=== PATIENT | female | born 1940 | race Caucasian/White ===

== ENCOUNTER 2016-06-22 10:10 | Day surgery (SDC) | payer MEDICARE ==
[2016-06-20 11:46] VITALS: BMI 17.6
[~2016-06-22 10:10] MED LIST: LACTATED RINGERS 1,000 ML IV SCH
[2016-06-22] MEDS ORDERED: LACTATED RINGERS 1,000 ML IV ONE (11:07)
[2016-06-22] MEDS ORDERED: LIDOCAINE 1% 20 ML VIAL (10MG/ML) FOR IV START INTRADERMA ONE (11:07)
[2016-06-22 11:12] VITALS: TEMP 98.3
[2016-06-22] MEDS ORDERED: LIDOCAINE 1% INJ 10MG/ML (20 ML MDV) ONE (11:30)
[2016-06-22] MEDS ORDERED: PROPOFOL 10 MG/ML 20 ML VIAL IV ONE (11:30)
--- NOTE | 2016-06-22 11:56 | P.PCN ---
Date of Procedure: 06/22/16 Procedure(s) Performed: BRIEF HISTORY: Patient is a 75-year-old pleasant white female, scheduled for an elective colonoscopy as a part of evaluation of left lower quadrant abdominal pain and diarrhea for the last few months duration. She has bowel movements anywhere from 5-6 a day which are loose to watery in consistency. She denies any blood or mucus in the stool. PROCEDURE PERFORMED: Colonoscopy With biopsy. PREOPERATIVE DIAGNOSIS: Left lower quadrant abdominal pain and diarrhea of 3 months duration IV sedation per Anesthesia. PROCEDURE: After informed consent was obtained, the patient, was brought into the endoscopy unit. IV conscious sedation was administered by Anesthesia under continuous monitoring. Initially the Olympus CF-160 flexible video . colonoscope was then inserted in the rectum, gradually advanced into the cecum with moderate to severe difficulty secondary to acute ventilation the sigmoid colon. Careful examination was performed as the scope was gradually being withdrawn. Ileocecal valve and the appendiceal orifice were visualized and appeared normal. Prep was excellent. Mucosa of the cecum, ascending colon, transverse colon, descending colon, sigmoid colon, and rectum appeared normal. Retroflexion was performed in the rectum and no lesions were seen. scattered diverticulosis seen. Random biopsies were done from the ascending and descending colon to rule out laparoscopic/collagenous colitis. The patient tolerated the procedure well. IMPRESSION: Normal-appearing colon from rectum to cecumwith no evidence of colitis or colorectal neoplasia . Scattered sigmoidal diverticulosis. RECOMMENDATIONS: Findings of this examination were discussed with the patient as well as a family. She was advised to follow with the biopsy results and she' ll be seen in the office in 2 to 3 weeks.
[2016-06-22 12:03] VITALS: RESP 16
[2016-06-22 12:27] VITALS: BP 135/78; PULSE 82
== END 2016-06-22 12:45 | disposition home or self-care (01) ==
LOC: ORWHC2ENDO 10:10
PROVIDERS: ATTEND Internal Medicine Gastroenterology
DX: K57.30 Diverticulosis of large intestine without perforation or abscess without bleeding (principal); I10 Essential (primary) hypertension; I25.10 Atherosclerotic heart disease of native coronary artery without angina pectoris; E78.5 Hyperlipidemia, unspecified; J45.909 Unspecified asthma, uncomplicated; J44.9 Chronic obstructive pulmonary disease, unspecified; K21.9 Gastro-esophageal reflux disease without esophagitis; Z88.5 Allergy status to narcotic agent; Z88.6 Allergy status to analgesic agent; Z91.041 Radiographic dye allergy status; Z79.1 Long term (current) use of non-steroidal anti-inflammatories (NSAID); Z79.51 Long term (current) use of inhaled steroids; Z79.899 Other long term (current) drug therapy; Z87.891 Personal history of nicotine dependence
CPT/HCPCS: 88305; 45380; J2001; J2704

== ENCOUNTER → 2016-06-29 | Outpatient (CLI) | payer MEDICARE ==
--- NOTE | 2016-07-02 10:38 | MM ---
Reason for exam: clinical finding. Last mammogram was performed 3 years and 2 months ago. History: Patient is postmenopausal. Family history of breast cancer in sister. Benign excisional biopsy of both breasts. Indicated problem(s): lump or thickening in the left breast. Physical Findings: Nurse Summary: 0.5cm nodule in the left breast at 1-2 o'clock (nurse mm). MG 3D Diag Mammo W/Cad MORAIMA Bilateral CC and MLO view(s) were taken. XCCL and LM view(s) were taken of the left breast. Prior study comparison: April 17, 2013, bilateral digital screening mammo w/CAD. The breast tissue is extremely dense which could obscure a lesion on mammography. No significant new findings when compared with previous films. These results were verbally communicated with the patient and result sheet given to the patient on 07/02/16. ASSESSMENT: Incomplete: need additional imaging evaluation, BI-RAD 0 RECOMMENDATION: Ultrasound of the left breast. (palpable)
--- NOTE | 2016-07-02 10:40 | USB ---
Reason for exam: additional evaluation requested from abnormal screening. History: Patient is postmenopausal. Family history of breast cancer in sister. Benign excisional biopsy of both breasts. US Breast Limited LT Left breast ultrasound demonstrates a 2 x 1 x 1mm lesion too small to characterize at 1 o'clock and a 6 x 4 x 8mm oval, solid, hypoechoic, vascular lesion at 2 o'clock, stalk suggesting lymph node. These results were verbally communicated with the patient and result sheet given to the patient on 06/29/16. ASSESSMENT: Suspicious, BI-RAD 4 RECOMMENDATION: Ultrasound core biopsy of the left breast. Called Dr. Alejandro with mammographic findings and has scheduled an appointment for the patient for 08/09/16 at 10:[address] Burgos. Biopsy scheduled for 07/06/16 at 9:00. PRELIMINARY REPORT CALLED AND FAXED TO DR. BURGOS ON 07/02/16 AT 300/TP.
== END | disposition home or self-care (01) ==
LOC: RADMAMWWP 10:05
PROVIDERS: ATTEND Family Medicine
DX: N63 Unspecified lump in breast (principal); N64.4 Mastodynia; R92.8 Other abnormal and inconclusive findings on diagnostic imaging of breast
CPT/HCPCS: 76642; G0204; G0279

== ENCOUNTER → 2016-07-06 | Day surgery (SDC) | payer MEDICARE ==
[~2016-07-06] MED LIST changes: +BACITRACIN OINT 1 EACH PACKET TOPICAL ONE; -LACTATED RINGERS 1,000 ML IV SCH; +LIDOCAINE 1% INJ 10MG/ML (20 ML MDV) ONE; +LIDOCAINE 1%-EPI 1:100,000 20 ML VIAL ONE; +SODIUM BICARB 4% 5 ML VIAL (0.48 MEQ/ML) ONE
--- NOTE | 2016-07-06 11:25 | USB ---
EXAMINATION TYPE: US biopsy breast VAD LT DATE OF EXAM: 07/06/2016 9:25 AM CLINICAL HISTORY: R92.8 ABN MAMMO. TECHNIQUE: Ultrasound guided core biopsy of left breast. COMPARISON: NONE FINDINGS: The procedure of ultrasound guided core biopsy was explained to the patient. Benefits, alternatives, and risks were discussed. An informed consent was then obtained. The patient was placed in supine positioning for imaging and for the procedure. The overlying skin was prepped and draped in usual sterile fashion. Lidocaine buffered with bicarbonate was used as anesthetic into the skin and subcutaneous tissue up to area of concern in the left breast. A jayden was made with surgical scalpel. Under ultrasound guidance, a 12-gauge vacuum assisted biopsy gun device was used to obtain 6 core samples. Following this, a biopsy clip was left in lesion. The patient tolerated the procedure well without any immediate complication. The patient was kept in the radiology department for short stay after the procedure and then discharged home in stable condition. IMPRESSION: SUCCESSFUL, UNCOMPLICATED ULTRASOUND GUIDED CORE BIOPSY OF AREA OF CONCERN IN THE LEFT BREAST, FULL PATHOLOGY RESULTS TO FOLLOW. Pathology Results: Malignant BREAST, LEFT, CORE BIOPSY: INVASIVE DUCTAL CARCINOMA. SEE SURGICAL PATHOLOGY CANCER CASE SUMMARY. Recommendation Surgical consul of the left breast. CHRISTIANO
== END ==
LOC: RADUSWWP 07:57
PROVIDERS: ATTEND Surgery
DX: C50.912 Malignant neoplasm of unspecified site of left female breast (principal); R92.8 Other abnormal and inconclusive findings on diagnostic imaging of breast; Z88.5 Allergy status to narcotic agent; Z88.8 Allergy status to other drugs, medicaments and biological substances; Z91.041 Radiographic dye allergy status
CPT/HCPCS: 88305; 88342; 88341; 19083; A4648; J2001

== ENCOUNTER 2016-08-08 06:48 | Day surgery (SDC) | payer MEDICARE ==
--- NOTE | 2016-07-14 08:43 | HP ---
DATE OF ADMISSION: 08/08/2016 CHIEF COMPLAINT: Left breast cancer. HISTORY OF PRESENT ILLNESS: Patient is a 75-year-old female who had a recent diagnosis of left breast cancer. This was identified first by self palpation. The patient felt a small pea-sized lump in the lateral aspect of the left breast. She had a mammogram performed which was nonspecific and an ultrasound showing an 8 x 6 mm solid lesion. Core biopsy showed invasive ductal cancer. Receptors are still pending at this time. The patient had already decided prior to the visit that she was not interested in breast conservation. She has a history of breast cancer in one and possibly 2 sisters. She has had several previous biopsies bilaterally. All of which have been benign previously. PAST MEDICAL HISTORY: Asthma, COPD, osteoarthritis, GERD, anxiety, IBS. PAST SURGICAL HISTORY: Cholecystectomy, breast biopsies. MEDICATIONS: See list. ALLERGIES: CODEINE and ASPIRIN. PHYSICAL EXAM: HEENT is normocephalic. Sclerae anicteric. Right breast without mass or adenopathy. Left breast with induration/mass present at 3 o'clock approximately 1 cm with some ecchymosis noted. No adenopathy appreciated. ABDOMEN: Soft, nontender, nondistended. NEURO: AAO x3. EXTREMITIES: Without edema. IMPRESSION: A 75-year-old female with newly diagnosed left breast cancer. PLAN: Will proceed with left simple mastectomy with sentinel lymph node biopsy on 08/08. The alternate options were discussed in detail with the patient. These included preoperative MRI, preoperative genetic testing, breast conservation surgery. We also offered preoperative evaluation by oncology and radiation oncology. Patient was not interested in any of those options at this time and would like to proceed with mastectomy. Appointments will be made for the patient to see Dr. Douglas postoperatively as the patient knows Dr. Douglas from her 's prior illness. The risks of bleeding, infection, flap ischemia, wound formation, seroma formation, nerve injury, lymphedema, potential need for additional surgery were discussed. The patient understands and wishes to proceed.
[2016-08-06 10:14] VITALS: BMI 18.3
[~2016-08-08 06:48] MED LIST changes: -BACITRACIN OINT 1 EACH PACKET TOPICAL ONE; +DEXAMETHASONE SOD PHOSPHATE 10 MG/ML 1 ML VIAL IV ONE; +HEPARIN SODIUM,PORCINE 5,000 UNIT/ML 1 ML VIAL SQ ONE; +HYDROmorphone 1 MG/ML 1 ML SYRINGE IVP PRN; +LACTATED RINGERS 1,000 ML IV SCH; -LIDOCAINE 1% INJ 10MG/ML (20 ML MDV) ONE; -LIDOCAINE 1%-EPI 1:100,000 20 ML VIAL ONE; +MIDAZOLAM 2 MG/2 ML VIAL IV PRN; +ONDANSETRON 4 MG/2 ML VIAL IVP ONE; +Pre Op ABX Message 1 EACH MISC MISCELLANE ONE; -SODIUM BICARB 4% 5 ML VIAL (0.48 MEQ/ML) ONE
[2016-08-08] MEDS ORDERED: METHYLENE BLUE 50 MG/10 ML AMPUL ONE (07:05)
[2016-08-08] MEDS ORDERED: LIDOCAINE 1% 20 ML VIAL (10MG/ML) FOR IV START INTRADERMA ONE (07:42)
[2016-08-08] MEDS ORDERED: ALPRAZolam 0.25 MG TAB PO ONE (07:45)
[2016-08-08] MEDS ORDERED: MIDAZOLAM 2 MG/2 ML VIAL ONE (09:41)
[2016-08-08] MEDS ORDERED: SUCCINYLCHOLINE CHLORIDE 100 MG/5 ML SYR IV ONE (09:41)
[2016-08-08] MEDS ORDERED: LIDOCAINE 1% INJ 10MG/ML (20 ML MDV) ONE (09:41)
[2016-08-08] MEDS ORDERED: PROPOFOL 10 MG/ML 20 ML VIAL IV ONE (09:41)
[2016-08-08] MEDS ORDERED: fentaNYL (PF) 50 MCG/ML 2 ML AMP ONE (09:41)
[2016-08-08] MEDS ORDERED: METHYLENE BLUE 10 MG/ML 1 ML VIAL INJ ONE (09:54)
[2016-08-08] MEDS ORDERED: SODIUM CHLORIDE 0.9% 100 ML with ceFAZolin 1,000 MG IV ONE ×2 (10:13)
--- NOTE | 2016-08-08 10:13 | NM ---
EXAMINATION TYPE: NM sentinel node injection DATE OF EXAM: 08/08/2016 8:40 AM COMPARISON: NONE HISTORY: Left BREAST CANCER TECHNIQUE AND FINDINGS: The procedure of sentinel lymph node injection was explained to the patient. The benefits, alternatives, and risks were discussed. An informed consent was then obtained. Overlying skin is cleaned with sterile alcohol. Lidocaine buffered with bicarbonate was used as anes thetic into the skin and subcutaneous tissue surrounding the nipple. Following this, 540 uCi Tc 99m Filtered Sulfur Colloid was injected into 4 equivalent doses at 12, 3, 6, and 9:00 position surroundi ng the left nipple intradermally. The injection sites were massaged by nuclear power plant engineer for 10 minutes after injection. T he patient tolerated the procedure well without any immediate complication. The patient was kept in the radiology department for short stay after the procedure and then taken to surgery for surgical pr ocedure what is presumed intraoperative gamma probe will be used for sentinel lymph node detection. IMPRESSION: Left breast radiotracer injection for sentinel node localization as above.
[2016-08-08] MEDS ORDERED: HYDROcodone/APAP 5-325MG 1 EACH TAB PO PRN (11:34)
[2016-08-08] MEDS ORDERED: ONDANSETRON 4 MG/2 ML VIAL IVP PRN (11:34)
[2016-08-08] MEDS ORDERED: NALOXONE 0.4 MG/ML 1 ML VIAL IV PRN (11:34)
--- NOTE | 2016-08-08 11:43 | P.OP ---
Date of Procedure: 08/08/16 Procedure(s) Performed: PREOPERATIVE DIAGNOSIS: Left breast cancer POSTOPERATIVE DIAGNOSIS: Same PROCEDURE: Left breast mastectomy with sentinel lymph node biopsy SURGEON: Aubrey EBL: Minimal ANESTHESIA: General COMPLICATIONS: None OPERATIVE PROCEDURE: Patient was placed on the operating room table in the supine position. 2 mL of methylene blue was injected into the subareolar space. The breast was then massaged for 5 minutes. Using the skin marker the proposed incision sites were drawn out on the chest wall. The superior incision was first created. The incision was elliptical in nature encompassing the nipple areolar complex. Flaps were raised superiorly until the chest wall was reached. The axilla was then addressed. Blunt dissection surprisingly did reveal immediately 2 hot and blue lymph nodes along with the feeding blue colored lymphatic vessel. Both of these lymph nodes were removed and sent to pathology for close examination labeled sentinel lymph nodes 1 and 2. A single additional non-blue but yet radioactive lymph node was identified labeled sentinel lymph node #3 and sent to pathology. All 3 lymph nodes thankfully were negative for metastatic disease by frozen section. The mastectomy incision was then created inferiorly and flaps were again raised until the chest wall was reached. The breast was removed from the chest wall using electrocautery. Multiple vessels were divided using either electrocautery or the clip general dentist. The area was irrigated. No bleeding was seen. A drain was placed beneath the flaps of the mastectomy incision. The subcutaneous tissues were then closed using 3-0 Vicryl sutures and the skin was closed using a running 4-0 Monocryl stitch. Prineo dressing was used along the entire length of the incision with Dermabond. The drain was sutured in place using a 3-0 silk stitch. DISPOSITION: Stable to recovery room
[2016-08-08] MEDS ORDERED: KETOROLAC 30 MG/ML 1 ML VIAL IVP ONE (11:51)
[2016-08-08] MEDS ORDERED: ACETAMINOPHEN IV (For NPO) 1,000 MG/100 ML VIAL IVPB ONE (12:10)
[2016-08-08] MEDS: LABETALOL 5 MG/ML VIAL MDV IVP ONE ×2 (12:39→12:49)
[2016-08-08] MEDS: D5-0.45% NACL WITH KCL 20MEQ/L 1,000 ML IV SCH ×2 (13:35→23:29)
[2016-08-08] MEDS ORDERED: PROCHLORPERAZINE 10 MG TAB PO PRN (14:52)
[2016-08-08] MEDS ORDERED: ALPRAZolam 0.5 MG TAB PO PRN (14:52)
[2016-08-08] MEDS ORDERED: DIPHENOX-ATROP 2.5-0.025 MG 1 EACH TAB PO PRN (14:52)
--- NOTE | 2016-08-08 14:52 | P.CONS ---
History of Present Illness - Reason for Consult Consult date: 08/08/16 medical Management Requesting physician: Angel Burgos - Chief Complaint Left breast mastectomy with santinel lymph nodes biopsy. - History of Present Illness This is a 75-year-old female one of Dr. Alejandro with a previous medical history significant for coronary artery disease status post left heart catheterization with the left heart catheterization that was done in September 2014 that showed ostial lesion of the diagonal branch and mild disease of the RCA, normal ejection fraction, hypertension and hypertensive cardiovascular disease with left ventricular hypertrophy, chronic tobacco use and dependence with chronic obstructive pulmonary disease, GERD, patient underwent left mastectomy with sentinel lymph node biopsy that was done by Dr. guillen and I was asked to see the patient for medical management. Patient stated that she developed to have a lump in the left breast about 2 month ago and she waited about a month until she saw Dr. Alejandro where he sent her to a mammogram that was nonspecific, this was followed by ultrasound that showed 86 monitor solid nodule on the lateral aspect of the left breast core biopsy confirmed invasive ductal carcinoma, subsequently patient was scheduled to go for left mastectomy since the patient is not interested in breast conservation surgery. Review of Systems Constitutional: Reports weakness, Denies anorexia, Denies chronic headaches, Denies chronic pain, Denies lethargy, Denies night sweats Eyes: denies blurred vision, denies bulging eye, denies decreased vision Ears: deny: decreased hearing Ears, nose, mouth and throat: Denies dysphagia, Denies neck lump, Denies sore throat Breasts: left: change in shape (Post left mastectomy.) Cardiovascular: Reports high blood pressure, Denies chest pain, Denies decreased exercise tolerance, Denies dyspnea on exertion, Denies palpitations, Denies phlebitis, Denies rapid heart beat, Denies shortness of breath, Denies syncope Respiratory: Reports cough, Reports dyspnea, Denies congestion, Denies home oxygen, Denies sleep apnea, Denies snoring, Denies wheezing Gastrointestinal: Reports change in bowel habits, Reports diarrhea, Reports nausea, Denies abdominal pain, Denies bloating, Denies BRBPR, Denies heartburn, Denies melena, Denies vomiting Genitourinary: Denies dysuria, Denies urgency Menstruation: Reports post hysterectomy, Reports postmenopausal Musculoskeletal: Denies myalgias Musculoskeletal: absent: ankle pain, ankle stiffness, ankle swelling, elbow pain , elbow stiffness, elbow swelling, foot pain, foot stiffness, foot swelling, hand pain, hand stiffness, hand swelling, hip pain, hip stiffness, hip swelling , knee pain, knee stiffness, knee swelling, shoulder pain, shoulder stiffness, shoulder swelling, wrist pain, wrist stiffness, wrist swelling Integumentary: Denies pruritus, Denies rash Psychiatric: Reports anxiety, Denies depression Endocrine: Denies fatigue, Denies weight change Past Medical History Past Medical History: Asthma, Coronary Artery Disease (CAD), Chest Pain / Angina , COPD, GERD/Reflux, Hyperlipidemia, Hypertension, Osteoarthritis (OA) Additional Past Medical History / Comment(s): pancreatitis, HTN, heart murmur since 1970s, bronchitis, IBS with diarrhea, osteoarthritis, peptic ulcer, sinusitis, UTI's, migraines, dizziness at times. History of Any Multi-Drug Resistant Organisms: None Reported Past Surgical History: Bladder Surgery, Cholecystectomy, Heart Catheterization, Hysterectomy, Orthopedic Surgery Additional Past Surgical History / Comment(s): 09/21/14 cardiac cath with disease -treated medically, cataracts bilaterally, rt rotator cuff, juan m carpal tunnel, bladder suspension, rectocele repair, hemorrhoidectomy, colonoscopies, camera endoscopy, EGD Past Anesthesia/Blood Transfusion Reactions: No Reported Reaction Additional Past Anesthesia/Blood Transfusion Reaction / Comm: Pt is claustrophobic. Past Psychological History: Anxiety Additional Psychological History / Comment(s): Pt resides at [facility]. She is independent. She uses no assistive device. She drives. She has a nebulizer. She has a little anxiety which she occasionally uses xanax with good results. She is claustrophobic. Smoking Status: Former smoker Past Alcohol Use History: None Reported Additional Past Alcohol Use History / Comment(s): Pt started smoking in 1 and is 1 ppd smoker. quit 2016 Past Drug Use History: None Reported - Past Family History Father Family Medical History: COPD (Her father from COPD.) Additional Family Medical History / Comment(s): Father is . Mother Family Medical History: CVA/TIA (Mother at age of 82 from CVA she also has history of hypertension.), Hypertension Additional Family Medical History / Comment(s): at age 91 Sister(s) Family Medical History: Cancer (Patient had 6 sisters one of her sisters is a survivor of breast cancer the other one from a massive heart attack the third one from COPD and she still have 2 other living sisters one with dementia the other one with Alzheimer dementia.) Brother(s) Family Medical History: Cancer, Myocardial Infarction ([place]) (Patient had 5 brothers one of them from cancer and motor vehicle accident and the other one from a massive [place] patient still have 3 living brothers.) Daughter(s) Family Medical History: No Reported History (Patient has 2 daughters no major medical problems) Son(s) Family Medical History: No Reported History (Patient has one son no major medical problems) Medications and Allergies Home Medications Medication Instructions Recorded Confirmed Type Diphenox-Atrop 2.5-0.025 mg 1 tab PO BID PRN 09/17/14 08/08/16 History [Lomotil] Gabapentin [Neurontin] 100 mg PO TID 09/17/14 08/08/16 History ALPRAZolam [Xanax] 0.5 mg PO TID PRN 06/16/15 08/08/16 History Albuterol Nebulized [Ventolin 2.5 mg INHALATION RT-TID 06/16/15 08/08/16 History Nebulized] Albuterol Sulfate [Proair Hfa] 1 - 2 puff INHALATION RT-Q6H PRN 06/16/15 History Losartan Potassium [Cozaar] 50 mg PO HS 03/06/16 08/08/16 History Losartan Potassium [Cozaar] 100 mg PO QAM 03/06/16 08/08/16 History Omeprazole [PriLOSEC] 20 mg PO AC-BRKFST 03/06/16 08/08/16 History Fluticasone/Vilanterol [Breo 1 puff INHALATION RT-BID 03/24/16 08/08/16 History Ellipta 100-25 Mcg Inhaler] Umeclidinium [place] [Incruse 62.5 mcg INHALATION 1200 03/24/16 08/08/16 History Ellipta] Celecoxib [CeleBREX] 200 mg PO DAILY 06/20/16 08/08/16 History Allergies Allergy/AdvReac Type Severity Reaction Status Date / Time aspirin AdvReac Nausea Verified 08/06/16 10:04 codeine AdvReac Nausea Verified 08/06/16 10:04 Iodinated Contrast Media - AdvReac Vomiting Verified 08/06/16 10:04 Oral and [Iodinated Contrast Media - IV Dye] Physical Exam Vitals: Vital Signs Temp Pulse Pulse Resp BP BP Pulse Ox 08/08/16 12:15 70 18 201/94 100 08/08/16 11:58 70 18 203/95 100 08/08/16 11:43 68 18 212/95 99 08/08/16 11:28 97.8 F 69 16 145/99 99 08/08/16 07:27 97.5 F L 71 16 172/73 97 Intake and Output 08/07/16 08/08/16 08/08/16 22:59 06:59 14:59 Intake Total 850 Output Total 50 Balance 800 Intake: IV 850 Output: Estimated Blood Loss 50 - Constitutional General appearance: average body habitus, mild distress - EENT Eyes: anicteric sclerae, EOMI, no PERRLA, no ptosis, no scleral icterus, normal appearance ENT: NA/AT, normal oropharynx, no thrush Ears: bilateral: normal - Neck Neck: no lymphadenopathy, normal ROM, no rigidity, no stridor, no thyromegaly Carotids: bilateral: upstroke delayed Thyroid: bilateral: normal size - Respiratory Respiratory: bilateral: diminished, prolonged expiration, negative: dullness, rales, rhonchi, wheezing - Cardiovascular Rhythm: regular Heart sounds: normal: S1, S2 Abnormal Heart Sounds: systolic murmur, no rub, no S3 Gallop, no S4 Gallop, no click - Gastrointestinal General gastrointestinal: normal bowel sounds, soft, no splenomegaly, no tenderness, no umbilical hernia, no ventral hernia - Integumentary Integumentary: normal, normal turgor - Neurologic Neurologic: CNII-XII intact - Musculoskeletal Musculoskeletal: generalized weakness - Psychiatric Psychiatric: A&O x's 3, appropriate affect, intact judgment & insight Results CBC & Chem 7: 08/08/16 07:55 Assessment and Plan Plan: Assessment and plan: 1. Invasive ductal carcinoma of the left breast status post left mastectomy with sentinel lymph node biopsy. Continue the use of incentive spirometer to reduce the incidence of atelectasis and hospital-acquired pneumonia, continue current pain management as outlined by general surgery, continue deep venous thrombosis prophylaxis, continue IV fluid resuscitation and anti-emetics, we will continue with current pain management. 2. History of coronary artery disease. Stable. 3. Hypertension and hypertensive cardiovascular disease. Continue losartan 100 mg the morning and 50 mg at bedtime. 4. Hyperlipidemia. Continue Lipitor 10 mg orally once every day. 5. GERD. Continue omeprazole 20 mg orally once every day. 6. Osteoarthritis. Continue current pain management. 7. COPD. continue albuterol,Breo Ellipta and Incruse. 8. Osteoporosis. Stable. 9. IBS with diarrhea. Continue current management with Lomotil and the Bentyl as needed. 10. GI prophylaxis. On Prilosec 20 mg orally once every day. 11. DVT prophylaxis. Continue heparin 5000 units subcutaneously every 8 hours. 12. Thanks for the consult we will follow the patient along with you.
[2016-08-08] MEDS: HEPARIN SODIUM,PORCINE 5,000 UNIT/ML 1 ML VIAL SQ SCH ×2 (18:08→23:29)
[2016-08-08] MEDS: GABAPENTIN 100 MG CAP PO SCH ×2 (18:08→21:24)
[2016-08-08] MEDS: traMADol 50 MG TAB PO PRN (19:11)
[2016-08-08] MEDS ORDERED: LOSARTAN 50 MG TAB PO SCH (21:00)
[2016-08-08] MEDS: ALBUTEROL NEBULIZED 2.5 MG/3 ML INHALATION SCH (21:52)
[2016-08-08] MEDS: SYMBICORT 80-4.5 MCG INHALER INHALATION SCH (21:53)
[2016-08-09] MEDS ORDERED: NON-FORMULARY DRUG (Omeprazole [Prilosec] 20 MG) PO SCH (07:30)
[2016-08-09 08:12] VITALS: TEMP 98.2
[2016-08-09] MEDS: GABAPENTIN 100 MG CAP PO SCH (08:15)
[2016-08-09] MEDS: HEPARIN SODIUM,PORCINE 5,000 UNIT/ML 1 ML VIAL SQ SCH (08:15)
[2016-08-09] MEDS: ALBUTEROL NEBULIZED 2.5 MG/3 ML INHALATION SCH ×2 (08:58→13:27)
[2016-08-09] MEDS ORDERED: PANTOPRAZOLE 40 MG/10 ML VIAL IV SCH (09:00)
[2016-08-09] MEDS ORDERED: LOSARTAN 50 MG TAB PO SCH (09:00)
[2016-08-09] MEDS: SYMBICORT 80-4.5 MCG INHALER INHALATION SCH (09:05)
[2016-08-09] MEDS: traMADol 50 MG TAB PO PRN (10:13)
[2016-08-09] MEDS ORDERED: TIOTROPIUM 18 MCG/PUFF INHALER INHALATION SCH (12:00)
[2016-08-09 12:26] VITALS: BP 143/67; RESP 16
[2016-08-09 13:30] VITALS: PULSE 76
--- NOTE | 2016-08-09 14:00 | P.DS ---
Providers Expected date of discharge: 08/09/16 Attending physician: Angel Burgos Consults: 08/08/16 11:34 Consult Physician Routine Consulting Provider: Daren España Consult Reason/Comments: Medical management Do you want consulting provider notified?: Yes Primary care physician: Alvin Shaw Hospital Course: Patient was admitted yesterday after an elective left simple mastectomy. She has done well postoperatively. Denies increased in pain. Drain output is appropriate. She is hoping to go home today. Her incision is clean and dry. She's been cleared by medicine for discharge. Plan outpatient follow-up in 1 week. Plan - Discharge Summary New Discharge Prescriptions: Hydrocodone/Acetaminophen [[place] 5-325] 1 - 2 each PO Q4HR PRN #30 tab PRN Reason: pain Discharge Medication List Diphenox-Atrop 2.5-0.025 mg [Lomotil] 1 tab PO BID PRN 09/17/14 [History] Gabapentin [Neurontin] 100 mg PO TID 09/17/14 [History] ALPRAZolam [Xanax] 0.5 mg PO TID PRN 06/16/15 [History] Albuterol Nebulized [Ventolin Nebulized] 2.5 mg INHALATION RT-TID 06/16/15 [ History] Albuterol Sulfate [Proair Hfa] 1 - 2 puff INHALATION RT-Q6H PRN 06/16/15 [ History] Prochlorperazine [Compazine] 10 mg PO TID PRN #30 tab 06/18/15 [Rx] Losartan Potassium [Cozaar] 50 mg PO HS 03/06/16 [History] Losartan Potassium [Cozaar] 100 mg PO QAM 03/06/16 [History] Omeprazole [PriLOSEC] 20 mg PO AC-BRKFST 03/06/16 [History] Fluticasone/Vilanterol [Breo Ellipta 100-25 Mcg Inhaler] 1 puff INHALATION RT- BID 03/24/16 [History] Umeclidinium [place] [Incruse Ellipta] 62.5 mcg INHALATION 1200 03/24/16 [ History] Celecoxib [CeleBREX] 200 mg PO DAILY 06/20/16 [History] Hydrocodone/Acetaminophen [[place] 5-325] 1 - 2 each PO Q4HR PRN #30 tab 08/08/16 [Rx] Follow up Appointment(s)/Referral(s): Angel Burgos MD [Medical Doctor] - 1 Week (august 16 at 9am) [facility], [NON-STAFF] - 1 Week Activity/Diet/Wound Care/Special Instructions: Regular diet. Eat lots of protein for good healing. Drink 8 8 oz of water a day. Activity as tolerated. No heavy lifting or pulling. Call Dr Burgos with fever over 101, increase pain, redness, swelling or drainage from incision. Increase amt of bright red drainage in AURELIA drains. May shower. [facility] [phone] Next dose of ultram can be taken at 4:30. [place] pain medication can be taken at anytime.
--- NOTE | 2016-08-09 14:02 | P.PN ---
Subjective This is a 75-year-old female one of Dr. Alejandro with a previous medical history significant for coronary artery disease status post left heart catheterization with the left heart catheterization that was done in September 2014 that showed ostial lesion of the diagonal branch and mild disease of the RCA, normal ejection fraction, hypertension and hypertensive cardiovascular disease with left ventricular hypertrophy, chronic tobacco use and dependence with chronic obstructive pulmonary disease, GERD, patient underwent left mastectomy with sentinel lymph node biopsy that was done by Dr. guillen and I was asked to see the patient for medical management. Patient stated that she developed to have a lump in the left breast about 2 month ago and she waited about a month until she saw Dr. Alejandro where he sent her to a mammogram that was nonspecific, this was followed by ultrasound that showed 86 monitor solid nodule on the lateral aspect of the left breast core biopsy confirmed invasive ductal carcinoma, subsequently patient was scheduled to go for left mastectomy since the patient is not interested in breast conservation surgery. 08/09: Patient's vital signs are stable. She is tolerating a regular diet with no nausea or vomiting. Pain is controlled. Patient is anticipating discharge home later today. Objective - Vital Signs Vital signs: Vital Signs Temp 98.2 F 08/09/16 08:00 Pulse 70 08/09/16 09:08 Resp 20 08/09/16 08:00 BP 135/74 08/09/16 08:00 Pulse Ox 96 08/09/16 08:00 Intake & Output 08/08/16 08/09/16 08/09/16 18:59 06:59 18:59 Intake Total 975 1040 Output Total 85 25 15 Balance 890 -25 1025 Weight 42.638 kg Intake: IV 975 Oral 1040 Output: Drainage 35 25 15 Breast 35 25 15 Estimated Blood Loss 50 Other: # Voids 1 1 - Exam General appearance: average body habitus, mild distress - EENT Eyes: anicteric sclerae, EOMI, no PERRLA, no ptosis, no scleral icterus, normal appearance ENT: NA/AT, normal oropharynx, no thrush Ears: bilateral: normal - Neck Neck: no lymphadenopathy, normal ROM, no rigidity, no stridor, no thyromegaly Carotids: bilateral: upstroke delayed Thyroid: bilateral: normal size - Respiratory Respiratory: bilateral: diminished, prolonged expiration, negative: dullness, rales, rhonchi, wheezing - Cardiovascular Rhythm: regular Heart sounds: normal: S1, S2 Abnormal Heart Sounds: systolic murmur, no rub, no S3 Gallop, no S4 Gallop, no click - Gastrointestinal General gastrointestinal: normal bowel sounds, soft, no splenomegaly, no tenderness, no umbilical hernia, no ventral hernia - Integumentary Integumentary: normal, normal turgor - Neurologic Neurologic: CNII-XII intact - Musculoskeletal Musculoskeletal: generalized weakness - Psychiatric Psychiatric: A&O x's 3, appropriate affect, intact judgment & insight - Labs CBC & Chem 7: 08/08/16 07:55 Assessment and Plan Plan: 1. Invasive ductal carcinoma of the left breast status post left mastectomy with sentinel lymph node biopsy. Continue the use of incentive spirometer to reduce the incidence of atelectasis and hospital-acquired pneumonia, continue current pain management as outlined by general surgery, continue deep venous thrombosis prophylaxis, continue IV fluid resuscitation and anti-emetics, we will continue with current pain management. 2. History of coronary artery disease. Stable. 3. Hypertension and hypertensive cardiovascular disease. Continue losartan 100 mg the morning and 50 mg at bedtime. 4. Hyperlipidemia. Continue Lipitor 10 mg orally once every day. 5. GERD. Continue omeprazole 20 mg orally once every day. 6. Osteoarthritis. Continue current pain management. 7. COPD. continue albuterol,Breo Ellipta and Incruse. 8. Osteoporosis. Stable. 9. IBS with diarrhea. Continue current management with Lomotil and the Bentyl as needed. 10. GI prophylaxis. On Prilosec 20 mg orally once every day. 11. DVT prophylaxis. Continue heparin 5000 units subcutaneously every 8 hours. Discharge plan: Home Impression and plan of care have been directed as dictated by the signing physician. Keren Daniels nurse practitioner acting as scribe for signing physician. Time with Patient: Greater than 30
== END 2016-08-09 14:24 | disposition home or self-care (01) ==
LOC: OR 06:48 → 6PED 11:19 → OR 08-09 14:24
PROVIDERS: ATTEND Surgery
DX: C50.912 Malignant neoplasm of unspecified site of left female breast (principal); Z87.891 Personal history of nicotine dependence; E78.5 Hyperlipidemia, unspecified; J44.9 Chronic obstructive pulmonary disease, unspecified; I11.9 Hypertensive heart disease without heart failure; M19.90 Unspecified osteoarthritis, unspecified site; K21.9 Gastro-esophageal reflux disease without esophagitis; F41.9 Anxiety disorder, unspecified; Z79.51 Long term (current) use of inhaled steroids; Z79.899 Other long term (current) drug therapy; K58.9 Irritable bowel syndrome, unspecified; Z88.6 Allergy status to analgesic agent; Z88.5 Allergy status to narcotic agent; Z91.041 Radiographic dye allergy status
CPT/HCPCS: 94640 ×4; 84132; 88342; 88331; 88307; 88341; 38792; 19303; 38500; A9541; J2250; J1644 ×2; J1100; J2405; J0690; J2001; Q9968; J3010; J1885; J0131; J0330; J2704; C9113

== ENCOUNTER → 2016-09-24 | Outpatient (CLI) | payer MEDICARE ==
--- NOTE | 2016-09-24 09:43 | BD ---
EXAMINATION TYPE: MG DEXA axial skeleton. DATE OF EXAM: 09/24/2016 COMPARISON: NONE CLINICAL HISTORY: Height: 60 IN Weight: 94 LBS FRAX RISK QUESTIONS: Alcohol (3 or more units per day): NO Family History (Parent hip fracture): NO Glucocorticoids (More than 3mos): NO (Ex: prednisone, prednisolone, methylprednisolone, dexamethasone, and hydrocortisone). History of Fracture in Adulthood: NO Secondary Osteoporosis: 1. Type 1 Diabetes: NO 2. Hyperthyroidism: NO 3. Menopause before 45: YES PARTIAL HYST AGE 30 4. Malnutrition: NO 5. Chronic liver disease: NO Rheumatoid Arthritis: YES Current Tobacco Use: NO RISK FACTORS HISTORY OF: Active: YES Postmenopausal woman: PARTIAL HYST AGE 30 MEDICATIONS: Additional Medications: CELEBREX, GABAPENTIN, FEMARA Additional History: BREAST CANCER EXAM MEASUREMENTS: Bone mineral densitometry was performed using the [employer]. Bone mineral density as measured about the Lumbar spine is: ----- L1-L4(G/cm2): 1.061 T Score Values are as follows: ----- L2: -0.9 ----- L3: -0.7 ----- L4: -1.1 ----- L1-L4: -1.0 Bone mineral density has: Decreased -0.2% since study of: 01/13/2013 Bone mineral density about the R hip (g/cm2): 0.971 Bone mineral density about the L hip (g/cm2): 1.014 T Score values are as follows: -----R Neck: -0.5 -----L Neck: -0.2 -----R Total: -0.7 -----L Total: -0.2 Bone mineral density has: Decreased -5.1% since study of: 01/13/2013 IMPRESSION: 1. No evidence of osteopenia or osteoporosis. NOTE: T-SCORE=SD OF THE YOUNG ADULT MEAN.
== END | disposition home or self-care (01) ==
LOC: RADBDWWP 08:46
PROVIDERS: ATTEND Internal Medicine Hematology & Oncology
DX: C50.412 Malignant neoplasm of upper-outer quadrant of left female breast (principal); N95.1 Menopausal and female climacteric states; Z79.890 Hormone replacement therapy
CPT/HCPCS: 77080

== ENCOUNTER 2016-11-12 18:33 | Inpatient (IN) | payer MEDICARE ==
[2016-11-12] MEDS ORDERED: MORPHINE SULFATE 4 MG/ML SYRINGE IVP STA ×2 (19:37→21:02)
[2016-11-12] MEDS ORDERED: KETOROLAC 30 MG/ML 1 ML VIAL IVP STA (19:37)
[2016-11-12] MEDS ORDERED: SODIUM CHLORIDE 0.9% 500 ML IV STA (19:37)
[2016-11-12 19:46] LABS: Basophils # (A) 0.1 k/uL (0-0.2); Basophils % (A) 1 %; CH 29.5; CHCM 34.6; Eosinophils # (A) 0.1 k/uL (0-0.7); Eosinophils % (A) 1 %; HCT 43.4 % (34.0-46.0); HGB 14.9 gm/dL (11.4-16.0); Luc # (Auto) 0.25; Luc % (Auto) 2; Lymphocytes # (A) 1.2 k/uL (1.0-4.8); Lymphocytes % (A) 8 %; MCH 29.5 pg (25.0-35.0); MCHC 34.4 g/dL (31.0-37.0); MCV 85.9 fL (80.0-100.0); Mean Platelet Volume 7.1; Monocytes # (A) 0.8 k/uL (0-1.0); Monocytes % (A) 6 %; Neutrophils # (A) 12.5 k/uL (1.3-7.7); Neutrophils % (A) 83 %; RBC 5.05 m/uL (3.80-5.40); RDW 14.2 % (11.5-15.5); WBC (Perox) 15.18
[2016-11-12 19:54] LABS: Anion Gap 13 mmol/L; Blood Urea Nitrogen 17 mg/dL (7-17); Calcium 9.5 mg/dL (8.4-10.2); Carbon Dioxide 21 mmol/L (22-30); Chloride 105 mmol/L (98-107); Glucose 214 mg/dL (74-99); Non-African American GFR(MDRD) >60 (>60 ml/min/1.73 sqM); Potassium 3.6 mmol/L (3.5-5.1); Sodium 139 mmol/L (137-145)
[2016-11-12] MEDS ORDERED: IPRATROPIUM-ALBUTEROL 3 ML NEB INHALATION STA (20:00)
--- NOTE | 2016-11-12 20:38 | ED ---
Abdominal Pain HPI - General Chief Complaint: Abdominal Pain Stated Complaint: Adb pain Hx Diverticulitis Source: patient Mode of arrival: ambulatory Limitations: no limitations - History of Present Illness Initial Comments: 76-year-old female with a past medical history of diverticulitis, asthma, CAD, COPD, GERD, hypertension, OA, angina, pink otitis, hypertension, and peptic ulcer disease presented for evaluation of lower quadrant abdominal pain that is consistent with her previous episodes of diverticulitis. She states she was diagnosed in February or March 2016 and since then has had some minor flareups although no further admissions. She states her current symptoms started 2 weeks ago and has intermittently been worsening. She describes her pain as a sharpness with associated fevers and chills and without nausea or vomiting. Pain is an 8 out of 10 currently but has been up as high as 10 out of 10. - Related Data Home Medications Medication Instructions Recorded Confirmed Diphenox-Atrop 2.5-0.025 mg 1 tab PO BID PRN 09/17/14 11/12/16 [Lomotil] Gabapentin [Neurontin] 100 mg PO BID 09/17/14 11/12/16 ALPRAZolam [Xanax] 1 mg PO TID PRN 06/16/15 11/12/16 Albuterol Nebulized [Ventolin 2.5 mg INHALATION RT-TID@08,141930 06/16/1511/12 Nebulized] Albuterol Sulfate [Proair Hfa] 1 - 2 puff INHALATION RT-Q6H PRN 06/16/15 Losartan Potassium [Cozaar] 50 mg PO HS 03/06/16 11/12/16 Losartan Potassium [Cozaar] 100 mg PO QAM 03/06/16 11/12/16 Omeprazole [PriLOSEC] 20 mg PO AC-BRKFST 03/06/16 11/12/16 Celecoxib [CeleBREX] 200 mg PO DAILY 06/20/16 11/12/16 Budesonide/Formoterol Fumarate 2 puff INHALATION RT-BID 11/12/16 11/12/16 [Symbicort 160-4.5 Mcg Inhaler] Dicyclomine [Bentyl] 10 mg PO BID 11/12/16 11/12/16 Tiotropium [place] [Spiriva] 1 cap INHALATION RT-DAILY 11/12/16 11/12/16 Previous Rx's Medication Instructions Recorded Prochlorperazine [Compazine] 10 mg PO TID PRN #30 tab 06/18/15 Allergies Allergy/AdvReac Type Severity Reaction Status Date / Time aspirin AdvReac Nausea Verified 11/12/16 19:23 codeine AdvReac Nausea Verified 11/12/16 19:23 Iodinated Contrast- Oral and AdvReac Vomiting Verified 11/12/16 19:23 IV Dye [Iodinated Contrast Media - IV Dye] Review of Systems ROS Statement: Those systems with pertinent positive or pertinent negative responses have been documented in the HPI. ROS Other: All systems not noted in ROS Statement are negative. Constitutional: Reports: fever (Subjective), chills Eyes: Denies: eye pain, eye discharge, vision change ENT: Denies: ear pain, throat pain Respiratory: Denies: cough, dyspnea Cardiovascular: Denies: chest pain, palpitations Endocrine: Denies: fatigue, polydipsia, polyuria Gastrointestinal: Reports: abdominal pain. Denies: nausea, vomiting, diarrhea, constipation, hematemesis, melena, hematochezia Genitourinary: Denies: urgency, dysuria Musculoskeletal: Denies: back pain, arthralgia, myalgia Skin: Denies: rash, lesions Neurological: Denies: headache, weakness Psychiatric: Denies: anxiety, depression Hematological/Lymphatic: Denies: easy bleeding, easy bruising Past Medical History Past Medical History: Asthma, Coronary Artery Disease (CAD), Cancer, Chest Pain / Angina, COPD, GERD/Reflux, Hypertension, Osteoarthritis (OA) Additional Past Medical History / Comment(s): pancreatitis, HTN, heart murmur since 1970s, bronchitis, IBS with diarrhea, osteoarthritis, peptic ulcer, sinusitis, UTI's, migraines, dizziness at times. History of Any Multi-Drug Resistant Organisms: None Reported Past Surgical History: Bladder Surgery, Cholecystectomy, Heart Catheterization, Hysterectomy, Orthopedic Surgery Additional Past Surgical History / Comment(s): 09/21/14 cardiac cath with disease -treated medically, cataracts bilaterally, rt rotator cuff, juan m carpal tunnel, bladder suspension, rectocele repair, hemorrhoidectomy, colonoscopies, camera endoscopy, EGD Past Anesthesia/Blood Transfusion Reactions: No Reported Reaction Additional Past Anesthesia/Blood Transfusion Reaction / Comment(s): Pt is claustrophobic. Past Psychological History: Anxiety Smoking Status: Light tobacco smoker Past Alcohol Use History: None Reported Past Drug Use History: None Reported - Past Family History Father Family Medical History: COPD (Her father from COPD.) Additional Family Medical History / Comment(s): Father is . Mother Family Medical History: CVA/TIA (Mother at age of 82 from CVA she also has history of hypertension.), Hypertension Additional Family Medical History / Comment(s): at age 91 Brother(s) Family Medical History: Cancer, Myocardial Infarction (NC) (Patient had 5 brothers one of them from cancer and motor vehicle accident and the other one from a massive NC patient still have 3 living brothers.) Daughter(s) Family Medical History: No Reported History (Patient has 2 daughters no major medical problems) Son(s) Family Medical History: No Reported History (Patient has one son no major medical problems) Sister(s) Family Medical History: Cancer (Patient had 6 sisters one of her sisters is a survivor of breast cancer the other one from a massive heart attack the third one from COPD and she still have 2 other living sisters one with dementia the other one with Alzheimer dementia.) General Exam Limitations: no limitations General appearance: alert, in distress (Mild) Head exam: Present: atraumatic, normocephalic, normal inspection Eye exam: Present: normal appearance, PERRL, EOMI. Absent: scleral icterus, conjunctival injection, periorbital swelling ENT exam: Present: normal exam, mucous membranes moist Neck exam: Present: normal inspection. Absent: tenderness, meningismus, lymphadenopathy Respiratory exam: Present: normal lung sounds bilaterally. Absent: respiratory distress, wheezes, rales, rhonchi, stridor Cardiovascular Exam: Present: regular rate, normal rhythm, normal heart sounds. Absent: systolic murmur, diastolic murmur, rubs, gallop, clicks GI/Abdominal exam: Present: soft, normal bowel sounds. Absent: distended, tenderness, guarding, rebound, rigid Rectal exam: Present: deferred Extremities exam: Present: normal inspection, full ROM, normal capillary refill. Absent: tenderness, pedal edema, joint swelling, calf tenderness Back exam: Present: normal inspection Neurological exam: Present: alert, oriented X3, CN II-XII intact Psychiatric exam: Present: normal affect, normal mood Skin exam: Present: warm, dry, intact, normal color. Absent: rash Course Vital Signs 11/12/16 11/12/16 11/12/16 18:42 19:54 20:14 Temperature 98.5 F Pulse Rate 87 80 Respiratory 18 16 Rate Blood Pressure 180/72 159/74 O2 Sat by Pulse 98 Oximetry 11/12/16 11/12/16 20:22 21:16 Temperature 98.3 F Pulse Rate 83 Respiratory Rate Blood Pressure 164/74 O2 Sat by Pulse Oximetry Medical Decision Making - Medical Decision Making 76-year-old female with past medical history of diverticulitis presented for evaluation of left lower quadrant abdominal pain that has been intermittent and present for the last 2 weeks acutely worsening over the last couple days. She states this is consistent with previous episode of diverticulitis. On physical examination she appears to be in mild distress and has tenderness to palpation left lower quadrant without peritoneal signs of guarding, rigidity, or rebound. The remainder of her physical exam is benign. Concern for diverticulitis and will obtain CT abdomen and pelvis without contrast given that she has an ALLERGY, labs, and provide pain control and IV fluids. Labs revealed a mild leukocytosis however the remainder were without significant abnormality. CT renal stone showed no uropathy however there was an abnormal right ovarian or adnexal mass measuring 7.5 cm. Recommended ultrasound for rule out of ovarian torsion. Pelvic ultrasound showed a multi segmented cystic mass in the region of the right ovary that measures 7.5 x 3.6 x 5.3 cm. There is normal arterial wave form in the right ovarian artery and there is no evidence of torsion. The patient was reevaluated and had some improvement in her symptoms. She was informed of all results and through shared decision making it was determined that she would be discharged with instructions to follow-up with her primary care physician but to return to this facility if her symptoms should worsen or persist. The patient acknowledged an understanding of this information and agreed with this plan of care. - Lab Data Result diagrams: 11/12/16 19:32 11/12/16 19:32 Lab Results 11/12/16 11/12/16 11/12/16 Range/Units 19:32 19:32 19:32 WBC 15.0 H (3.8-10.6) k/uL RBC 5.05 (3.80-5.40) m/uL Hgb 14.9 (11.4-16.0) gm/dL Hct 43.4 (34.0-46.0) % MCV 85.9 (80.0-100.0) fL MCH 29.5 (25.0-35.0) pg MCHC 34.4 (31.0-37.0) g/dL RDW 14.2 (11.5-15.5) % Plt Count 234 (150-450) k/uL Neutrophils % 83 % Lymphocytes % 8 % Monocytes % 6 % Eosinophils % 1 % Basophils % 1 % Neutrophils # 12.5 H (1.3-7.7) k/uL Lymphocytes # 1.2 (1.0-4.8) k/uL Monocytes # 0.8 (0-1.0) k/uL Eosinophils # 0.1 (0-0.7) k/uL Basophils # 0.1 (0-0.2) k/uL Sodium 139 (137-145) mmol/L Potassium 3.6 (3.5-5.1) mmol/L Chloride 105 (98-107) mmol/L Carbon Dioxide 21 L (22-30) mmol/L Anion Gap 13 mmol/L BUN 17 (7-17) mg/dL Creatinine 0.70 (0.52-1.04) mg/dL Est GFR (MDRD) Af Amer >60 (>60 ml/min/1.73 sqM) Est GFR (MDRD) Non-Af >60 (>60 ml/min/1.73 sqM) Glucose 214 H (74-99) mg/dL Plasma Lactic Acid Chucky 2.6 H* (0.7-2.0) mmol/L Calcium 9.5 (8.4-10.2) mg/dL Urine Color Urine Appearance (Clear) Urine pH (5.0-8.0) Ur Specific Cameron (1.001-1.035) Urine Protein (Negative) Urine Glucose (UA) (Negative) Urine Ketones (Negative) Urine Blood (Negative) Urine Nitrite (Negative) Urine Bilirubin (Negative) Urine Urobilinogen (<2.0) mg/dL Ur Leukocyte Esterase (Negative) Urine RBC (0-5) /hpf Urine WBC (0-5) /hpf Ur Squamous Epith Cells (0-4) /hpf Urine Bacteria (None) /hpf Hyaline Casts (0-2) /lpf Urine Mucus (None) /hpf 11/12/16 Range/Units 20:46 WBC (3.8-10.6) k/uL RBC (3.80-5.40) m/uL Hgb (11.4-16.0) gm/dL Hct (34.0-46.0) % MCV (80.0-100.0) fL MCH (25.0-35.0) pg MCHC (31.0-37.0) g/dL RDW (11.5-15.5) % Plt Count (150-450) k/uL Neutrophils % % Lymphocytes % % Monocytes % % Eosinophils % % Basophils % % Neutrophils # (1.3-7.7) k/uL Lymphocytes # (1.0-4.8) k/uL Monocytes # (0-1.0) k/uL Eosinophils # (0-0.7) k/uL Basophils # (0-0.2) k/uL Sodium (137-145) mmol/L Potassium (3.5-5.1) mmol/L Chloride (98-107) mmol/L Carbon Dioxide (22-30) mmol/L Anion Gap mmol/L BUN (7-17) mg/dL Creatinine (0.52-1.04) mg/dL Est GFR (MDRD) Af Amer (>60 ml/min/1.73 sqM) Est GFR (MDRD) Non-Af (>60 ml/min/1.73 sqM) Glucose (74-99) mg/dL Plasma Lactic Acid Chucky (0.7-2.0) mmol/L Calcium (8.4-10.2) mg/dL Urine Color Yellow Urine Appearance Clear (Clear) Urine pH 5.5 (5.0-8.0) Ur Specific Cameron 1.021 (1.001-1.035) Urine Protein Trace H (Negative) Urine Glucose (UA) Trace H (Negative) Urine Ketones Negative (Negative) Urine Blood Negative (Negative) Urine Nitrite Negative (Negative) Urine Bilirubin Negative (Negative) Urine Urobilinogen 2.0 (<2.0) mg/dL Ur Leukocyte Esterase Moderate H (Negative) Urine RBC 1 (0-5) /hpf Urine WBC 8 H (0-5) /hpf Ur Squamous Epith Cells 2 (0-4) /hpf Urine Bacteria Rare H (None) /hpf Hyaline Casts 13 H (0-2) /lpf Urine Mucus Rare H (None) /hpf Disposition Clinical Impression: Diverticulitis Disposition: ADMITTED IP TO THIS HOSP Referrals: Alvin Alejandro DO [Primary Care Provider] - 1-2 days Decision to Admit Reason: Admit from EC Decision Date: 11/12/16 Decision Time: 21:29
[2016-11-12 20:55] LABS: Appearance,Urine Clear (Clear); Bacteria,Urine Rare /hpf; Bilirubin,Urine Negative (Negative); Glucose,Urine (UA) Trace (Negative); Ketones,Urine Negative (Negative); Leukocyte Esterase,Urine Moderate (Negative); Mucus,Urine Rare /hpf; Nitrite,Urine Negative (Negative); PH, Urine 5.5 (5.0-8.0); Particle Count 4272; Protein,Urine Trace (Negative); RBC,Urine 1 /hpf (0-5); Specific Gravity,Urine 1.021 (1.001-1.035); Squamous Epithelial Cell,Urine 2 /hpf (0-4); UA Billing (MACRO vs. MICRO) MICRO; WBC,Urine 8 /hpf (0-5)
--- NOTE | 2016-11-12 20:56 | CT ---
EXAMINATION TYPE: CT abdomen pelvis wo con DATE OF EXAM: 11/12/2016 COMPARISON: 03/24/2016 HISTORY: Pelvic pain. History of diverticulitis. CT DLP: 495.00 mGycm Automated exposure control for dose reduction was used. TECHNIQUE: Helical acquisition of images was performed from the lung bases through the pelvis. FINDINGS: There is diffuse pulmonary emphysema seen at the lung bases. There is no pericardial effusion. There is no pleural effusion. There is a 1.5 cm cyst in the right lobe of the liver. There are clips from cholecystectomy. Common b ile duct is ectatic and measures 10 mm. Spleen appears normal. There is no evidence of a pancreatic m ass. There are pancreatic calcifications. There is mild dilation of the intrahepatic bile ducts. There is no adrenal mass. Kidneys show no hydronephrosis. There is a 3 mm calculus in the upper pole right kidney. There is no retroperitoneal adenopathy. There is extensive diverticulosis in the sigmoid colon. There is fat stranding around the sigmoid col on. There is no sign of free air. I see no bowel obstruction. Abdominal aorta is atheromatous.: IMPRESSION: SMALL NONOBSTRUCTING RIGHT RENAL CALCULUS. PANCREATIC OSSIFICATIONS CONSISTENT WITH OLD PANCREATITIS. MILDLY DILATED BILIARY TREE APPEARS INCREASED COMPARED TO OLD EXAM. INFLAMMATORY CHANGES AROUND THE SIGMOID COLON ARE SIMILAR TO OLD EXAM AND CONSISTENT WITH DIVERTICULI TIS OR COLITIS. NO FREE AIR. NO ABSCESS SEEN. SEVERE PULMONARY EMPHYSEMA.
[2016-11-12] MEDS ORDERED: MORPHINE SULFATE 4 MG/ML SYRINGE IV PRN (21:23)
[2016-11-12] MEDS ORDERED: ONDANSETRON 4 MG/2 ML VIAL IVP PRN (21:23)
[2016-11-12] MEDS ORDERED: NALOXONE 0.4 MG/ML 1 ML VIAL IV PRN (21:23)
[2016-11-12] MEDS ORDERED: DIPHENOX-ATROP 2.5-0.025 MG 1 EACH TAB PO PRN (21:27)
[2016-11-12] MEDS ORDERED: PROCHLORPERAZINE 10 MG TAB PO PRN (21:27)
[2016-11-12] MEDS ORDERED: metroNIDAZOLE-NS PMX 500 MG in SALINE 1 100ML.BAG IVPB STA (21:30)
[2016-11-12] MEDS ORDERED: PANTOPRAZOLE 40 MG TABLET PO STA (21:30)
[2016-11-12] MEDS: SODIUM CHLORIDE 0.9% 1,000 ML IV SCH (21:49)
[2016-11-12 22:53] VITALS: BMI 17.9
[2016-11-12] MEDS: ALPRAZolam 0.5 MG TAB PO PRN (23:58)
[2016-11-13] MEDS: ALBUTEROL NEBULIZED 2.5 MG/3 ML INHALATION SCH ×3 (07:22→19:14)
[2016-11-13] MEDS: TIOTROPIUM 18 MCG/PUFF INHALER INHALATION SCH (07:23)
[2016-11-13] MEDS: SYMBICORT 160-4.5 MCG INHALER INHALATION SCH ×2 (07:23→19:14)
[2016-11-13] MEDS ORDERED: NON-FORMULARY DRUG (Omeprazole [Prilosec] 20 MG) PO SCH (07:30)
[2016-11-13 07:49] LABS: Basophils % (A) 0 %; CH 29.5; CHCM 33.8; Eosinophils # (A) 0.1 k/uL (0-0.7); Eosinophils % (A) 1 %; HCT 40.2 % (34.0-46.0); HDW 2.66; HGB 13.6 gm/dL (11.4-16.0); Luc # (Auto) 0.21; Luc % (Auto) 2; Lymphocytes # (A) 1.2 k/uL (1.0-4.8); Lymphocytes % (A) 12 %; MCH 29.7 pg (25.0-35.0); MCHC 33.8 g/dL (31.0-37.0); MCV 87.9 fL (80.0-100.0); Mean Platelet Volume 7.4; Monocytes # (A) 0.6 k/uL (0-1.0); Monocytes % (A) 5 %; Neutrophils # (A) 8.1 k/uL (1.3-7.7); Neutrophils % (A) 80 %; RBC 4.57 m/uL (3.80-5.40); RDW 14.1 % (11.5-15.5); WBC 10.1 k/uL (3.8-10.6); WBC (Perox) 10.79
[2016-11-13 08:02] LABS: Anion Gap 8 mmol/L; Blood Urea Nitrogen 15 mg/dL (7-17); Calcium 8.3 mg/dL (8.4-10.2); Carbon Dioxide 22 mmol/L (22-30); Chloride 110 mmol/L (98-107); Glucose 74 mg/dL (74-99); Magnesium 1.6 mg/dL (1.6-2.3); Non-African American GFR(MDRD) >60 (>60 ml/min/1.73 sqM); Phosphorous 3.3 mg/dL (2.5-4.5); Sodium 140 mmol/L (137-145)
[2016-11-13] MEDS: DICYCLOMINE 10 MG CAP PO SCH ×2 (08:06→21:35)
[2016-11-13] MEDS: KETOROLAC 30 MG/ML 1 ML VIAL IVP PRN ×2 (08:06→13:22)
[2016-11-13] MEDS: GABAPENTIN 100 MG CAP PO SCH ×2 (08:06→21:35)
[2016-11-13] MEDS: PANTOPRAZOLE 40 MG TABLET PO SCH ×2 (08:06→16:11)
[2016-11-13] MEDS: SODIUM CHLORIDE 0.9% 1,000 ML IV SCH ×4 (09:51→23:28)
[2016-11-13] MEDS: LEVOFLOXACIN 500MG-D5W PMX 500 MG in DEXTROSE/WATER 1 100ML.BAG IVPB SCH (10:17)
[2016-11-13] MEDS: MELOXICAM 7.5 MG TAB PO SCH (10:21)
[2016-11-13] MEDS: LOSARTAN 50 MG TAB PO SCH (10:21)
--- NOTE | 2016-11-13 12:09 | P.HPIM ---
History of Present Illness H&P Date: 11/13/16 Chief Complaint: Abdominal pain This is a 76-year-old female patient of Dr. Alejandro with a past history of diverticulitis with hospitalization in March 2016 for this, irritable bowel syndrome, pulmonic murmur, COPD, gastroesophageal reflux disease , hyperlipidemia, hypertension, history of pancreatitis, coronary artery disease with medical management, generalized anxiety. Patient states that she sometimes has a little touch of abdominal pain and goes away on its own but this time she was having abdominal pain in the left lower quadrant that continued to worsen. Her last bowel movement was yesterday. She has not been passing gas today. She denies any urinary symptoms. She denies nausea or vomiting. She has had decreased appetite. She came into the clinic [facility] for evaluation. She underwent a CAT scan of the abdomen and pelvis that revealed inflammatory changes around the sigmoid colon similar to old exam and consistent with diverticulitis or colitis. No free air. No abscess seen. Severe pulmonary emphysema. Patient was admitted to the [facility] floor, started on IV antibiotics and consult with general surgeon requested. Patient does have previous relationship with Dr. Burgos. Nothing by mouth diet will be advanced to clear liquids. Review of Systems All systems: negative Constitutional: Denies chills, Denies fever Eyes: denies blurred vision, denies pain Ears, nose, mouth and throat: Denies headache, Denies sore throat Cardiovascular: Denies chest pain, Denies shortness of breath Respiratory: Denies cough Gastrointestinal: Reports abdominal pain, Denies diarrhea, Denies nausea, Denies vomiting Genitourinary: Denies dysuria, Denies hematuria, Denies urgency Musculoskeletal: Denies myalgias Integumentary: Denies pruritus, Denies rash Neurological: Denies numbness, Denies weakness Psychiatric: Denies anxiety, Denies depression Endocrine: Denies fatigue, Denies weight change Past Medical History Past Medical History: Asthma, Coronary Artery Disease (CAD), Cancer, Chest Pain / Angina, COPD, GERD/Reflux, Hypertension, Osteoarthritis (OA) Additional Past Medical History / Comment(s): pancreatitis, HTN, heart murmur since 1970s, bronchitis, IBS with diarrhea, osteoarthritis, peptic ulcer, sinusitis, UTI's, migraines, dizziness at times. History of Any Multi-Drug Resistant Organisms: None Reported Past Surgical History: Bladder Surgery, Cholecystectomy, Heart Catheterization, Hysterectomy, Orthopedic Surgery Additional Past Surgical History / Comment(s): 09/21/14 cardiac cath with disease -treated medically, cataracts bilaterally, rt rotator cuff, juan m carpal tunnel, bladder suspension, rectocele repair, hemorrhoidectomy, colonoscopies, camera endoscopy, EGD, left masectomy Past Anesthesia/Blood Transfusion Reactions: No Reported Reaction Additional Past Anesthesia/Blood Transfusion Reaction / Comment(s): Pt is claustrophobic. Past Psychological History: Anxiety Additional Psychological History / Comment(s): Pt resides at [facility]. She is independent. She uses no assistive device. She drives. She has a nebulizer. She has a little anxiety which she occasionally uses xanax with good results. She is claustrophobic. Smoking Status: Light tobacco smoker Past Alcohol Use History: None Reported Additional Past Alcohol Use History / Comment(s): Pt started smoking in 1960 and is 1 ppd smoker and continues to smoke at least a few cigarettes per day. She denies any marijuana, street drug or alcohol abuse. Past Drug Use History: None Reported - Past Family History Father Family Medical History: COPD Additional Family Medical History / Comment(s): Father is . Mother Family Medical History: CVA/TIA, Hypertension Additional Family Medical History / Comment(s): at age 91 Brother(s) Family Medical History: Cancer, Myocardial Infarction ([place]) Daughter(s) Family Medical History: No Reported History Son(s) Family Medical History: No Reported History Sister(s) Family Medical History: Cancer Medications and Allergies Home Medications Medication Instructions Recorded Confirmed Type Diphenox-Atrop 2.5-0.025 mg 1 tab PO BID PRN 09/17/14 11/12/16 History [Lomotil] Gabapentin [Neurontin] 100 mg PO BID 09/17/14 11/12/16 History ALPRAZolam [Xanax] 1 mg PO TID PRN 06/16/15 11/12/16 History Albuterol Nebulized [Ventolin 2.5 mg INHALATION RT-TID@08,14,1930 06/16/1511/12 History Nebulized] Albuterol Sulfate [Proair Hfa] 1 - 2 puff INHALATION RT-Q6H PRN 06/16/15 History Losartan Potassium [Cozaar] 50 mg PO HS 03/06/16 11/12/16 History Losartan Potassium [Cozaar] 100 mg PO QAM 03/06/16 11/12/16 History Omeprazole [PriLOSEC] 20 mg PO AC-BRKFST 03/06/16 11/12/16 History Celecoxib [CeleBREX] 200 mg PO DAILY 06/20/16 11/12/16 History Budesonide/Formoterol Fumarate 2 puff INHALATION RT-BID 11/12/16 11/12/16 History [Symbicort 160-4.5 Mcg Inhaler] Dicyclomine [Bentyl] 10 mg PO BID 11/12/16 11/12/16 History Tiotropium [place] [Spiriva] 1 cap INHALATION RT-DAILY 11/12/16 11/12/16 History Allergies Allergy/AdvReac Type Severity Reaction Status Date / Time aspirin AdvReac Nausea Verified 11/12/16 19:23 codeine AdvReac Nausea Verified 11/12/16 19:23 Iodinated Contrast- Oral and AdvReac Vomiting Verified 11/12/16 19:23 IV Dye [Iodinated Contrast Media - IV Dye] Physical Exam Vitals: Vital Signs Temp Pulse Pulse Resp BP BP Pulse Ox 11/13/16 07:45 88 11/13/16 07:31 80 11/13/16 07:00 98.8 F 88 18 175/74 96 11/13/16 00:00 81 16 11/12/16 23:00 97.8 F 81 16 148/64 97 11/12/16 22:04 98.0 F 11/12/16 21:55 83 16 168/73 95 11/12/16 21:16 98.3 F 164/74 11/12/16 20:22 83 11/12/16 20:14 80 11/12/16 19:54 16 159/74 11/12/16 18:42 98.5 F 87 18 180/72 98 Intake and Output 11/12/16 11/13/16 11/13/16 22:59 06:59 14:59 Intake Total 0 Balance 0 Intake: Oral 0 Other: Voiding Method Bedside Commode Weight 41.73 kg 41.73 kg Results CBC & Chem 7: 11/13/16 07:22 11/13/16 07:22 Labs: Abnormal Lab Results - Last 24 Hours (Table) 11/12/16 11/12/16 11/12/16 Range/Units 19:32 19:32 19:32 WBC 15.0 H (3.8-10.6) k/uL Neutrophils # 12.5 H (1.3-7.7) k/uL Chloride (98-107) mmol/L Carbon Dioxide 21 L (22-30) mmol/L Glucose 214 H (74-99) mg/dL Plasma Lactic Acid Chucky 2.6 H* (0.7-2.0) mmol/L Calcium (8.4-10.2) mg/dL Urine Protein (Negative) Urine Glucose (UA) (Negative) Ur Leukocyte Esterase (Negative) Urine WBC (0-5) /hpf Urine Bacteria (None) /hpf Hyaline Casts (0-2) /lpf Urine Mucus (None) /hpf 11/12/16 11/13/16 11/13/16 Range/Units 20:46 07:22 07:22 WBC (3.8-10.6) k/uL Neutrophils # 8.1 H (1.3-7.7) k/uL Chloride 110 H (98-107) mmol/L Carbon Dioxide (22-30) mmol/L Glucose (74-99) mg/dL Plasma Lactic Acid Chucky (0.7-2.0) mmol/L Calcium 8.3 L (8.4-10.2) mg/dL Urine Protein Trace H (Negative) Urine Glucose (UA) Trace H (Negative) Ur Leukocyte Esterase Moderate H (Negative) Urine WBC 8 H (0-5) /hpf Urine Bacteria Rare H (None) /hpf Hyaline Casts 13 H (0-2) /lpf Urine Mucus Rare H (None) /hpf Thrombosis Risk Factor Assmnt - DVT/VTE Prophylaxis DVT/VTE Prophylaxis: Pharmacologic Prophylaxis ordered - Choose All That Apply Each Risk Factor Represents 3 Points: Age 75 years or older Other congenital or acquired thrombophilia - If yes, enter type in comment: No Thrombosis Risk Factor Assessment Total Risk Factor Score: 3 Thrombosis Risk Factor Assessment Level: Moderate Risk Assessment and Plan Plan: 1. Acute diverticulitis. Continue antibiotic therapy. Consult with Dr. Burgos. Patient on clear liquids at this time. Continue Toradol. Continue Levaquin and Flagyl. 2. History of Irritable Bowel Syndrome. Continue Bentyl, lomotil. 3. Pulmonic murmur, longstanding. 4. COPD with tobacco use and dependence. Continue Symbicort, albuterol. 5. History of GERD. Patient will be switched to Protonix twice daily. 6. Hyperlipidemia history. 7. Hypertension. Continue losartan 100 mg in the morning and 59 g at bedtime. 8. History of pancreatitis, no evidence currently. 9. Coronary artery disease history with medical management, no current chest pain. 10. Generalized anxiety disorder. Continue Xanax as needed and Celebrex 200 mg daily. 11. DVT prophylaxis. Lovenox. 12. Gastrointestinal prophylaxis. Protonix twice daily. Patient will be admitted to the hospital for a minimum of 2 night stay. CODE STATUS: Full code Discharge plan: Return home Impression and plan of care have been directed as dictated by the signing physician. Keren Daniels nurse practitioner acting as scribe for signing physician.
--- NOTE | 2016-11-13 12:41 | P.GSCN ---
History of Present Illness Consult date: 11/13/16 Reason for Consult: Diverticulitis History of present illness: Patient is known to our service from a previous diagnosis of breast cancer. She has a history of diverticulitis in the past. She had a colonoscopy in June of this year by Dr. Bruce. She began over the last few days having episodes of abdominal pain in the bilateral lower quadrants. Some nausea. Slightly decreased bowel activity compared to normal. She does have chronic diarrhea. CT was performed and reveals changes of the sigmoid colon consistent with diverticulitis. Her white blood cell count was elevated. She feels better today. Pain is minimal at this time. Denies rectal bleeding. Review of Systems The patient denies any acute changes in vision or hearing, no dysphagia or odynophagia, no chest pain or shortness of breath, no dysuria or hematuria, no headache, no runny nose, no rectal bleeding or melena, no unexplained weight loss Past Medical History Past Medical History: Asthma, Coronary Artery Disease (CAD), Cancer, Chest Pain / Angina, COPD, GERD/Reflux, Hypertension, Osteoarthritis (OA) Additional Past Medical History / Comment(s): pancreatitis, HTN, heart murmur since 1970s, bronchitis, IBS with diarrhea, osteoarthritis, peptic ulcer, sinusitis, UTI's, migraines, dizziness at times. History of Any Multi-Drug Resistant Organisms: None Reported Past Surgical History: Bladder Surgery, Cholecystectomy, Heart Catheterization, Hysterectomy, Orthopedic Surgery Additional Past Surgical History / Comment(s): 09/21/14 cardiac cath with disease -treated medically, cataracts bilaterally, rt rotator cuff, juan m carpal tunnel, bladder suspension, rectocele repair, hemorrhoidectomy, colonoscopies, camera endoscopy, EGD, left masectomy Past Anesthesia/Blood Transfusion Reactions: No Reported Reaction Additional Past Anesthesia/Blood Transfusion Reaction / Comm: Pt is claustrophobic. Past Psychological History: Anxiety Additional Psychological History / Comment(s): Pt resides at [facility]. She is independent. She uses no assistive device. She drives. She has a nebulizer. She has a little anxiety which she occasionally uses xanax with good results. She is claustrophobic. Smoking Status: Light tobacco smoker Past Alcohol Use History: None Reported Additional Past Alcohol Use History / Comment(s): Pt started smoking in 1960 and is 1 ppd smoker and continues to smoke at least a few cigarettes per day. She denies any marijuana, street drug or alcohol abuse. Past Drug Use History: None Reported - Past Family History Father Family Medical History: COPD Additional Family Medical History / Comment(s): Father is . Mother Family Medical History: CVA/TIA, Hypertension Additional Family Medical History / Comment(s): at age 91 Brother(s) Family Medical History: Cancer, Myocardial Infarction ([place]) Daughter(s) Family Medical History: No Reported History Son(s) Family Medical History: No Reported History Sister(s) Family Medical History: Cancer Medications and Allergies Home Medications Medication Instructions Recorded Confirmed Type Diphenox-Atrop 2.5-0.025 mg 1 tab PO BID PRN 09/17/14 11/12/16 History [Lomotil] Gabapentin [Neurontin] 100 mg PO BID 09/17/14 11/12/16 History ALPRAZolam [Xanax] 1 mg PO TID PRN 06/16/15 11/12/16 History Albuterol Nebulized [Ventolin 2.5 mg INHALATION RT-TID@06/16/1511/12 History Nebulized] Albuterol Sulfate [Proair Hfa] 1 - 2 puff INHALATION RT-Q6H PRN 06/16/15 History Losartan Potassium [Cozaar] 50 mg PO HS 03/06/16 11/12/16 History Losartan Potassium [Cozaar] 100 mg PO QAM 03/06/16 11/12/16 History Omeprazole [PriLOSEC] 20 mg PO AC-BRKFST 03/06/16 11/12/16 History Celecoxib [CeleBREX] 200 mg PO DAILY 06/20/16 11/12/16 History Budesonide/Formoterol Fumarate 2 puff INHALATION RT-BID 11/12/16 11/12/16 History [Symbicort 160-4.5 Mcg Inhaler] Dicyclomine [Bentyl] 10 mg PO BID 11/12/16 11/12/16 History Tiotropium [place] [Spiriva] 1 cap INHALATION RT-DAILY 11/12/16 11/12/16 History Allergies Allergy/AdvReac Type Severity Reaction Status Date / Time aspirin AdvReac Nausea Verified 11/12/16 19:23 codeine AdvReac Nausea Verified 11/12/16 19:23 Iodinated Contrast- Oral and AdvReac Vomiting Verified 11/12/16 19:23 IV Dye [Iodinated Contrast Media - IV Dye] Surgical - Exam Vital Signs Temp Pulse Resp BP Pulse Ox 98.5 F 87 18 180/72 98 11/12/16 18:42 11/12/16 18:42 11/12/16 18:42 11/12/16 18:42 11/12/16 18:42 Physical exam: General: Well-developed, well-nourished HEENT: Normocephalic, sclerae nonicteric Abdomen: Mild bilateral lower quadrant tenderness, nondistended Extremities: No edema Neuro: Alert and oriented Results - Labs 11/13/16 07:22 11/13/16 07:22 Abnormal Lab Results - Last 24 Hours (Table) 11/12/16 11/12/16 11/12/16 Range/Units 19:32 19:32 19:32 WBC 15.0 H (3.8-10.6) k/uL Neutrophils # 12.5 H (1.3-7.7) k/uL Chloride (98-107) mmol/L Carbon Dioxide 21 L (22-30) mmol/L Glucose 214 H (74-99) mg/dL Plasma Lactic Acid Chucky 2.6 H* (0.7-2.0) mmol/L Calcium (8.4-10.2) mg/dL Urine Protein (Negative) Urine Glucose (UA) (Negative) Ur Leukocyte Esterase (Negative) Urine WBC (0-5) /hpf Urine Bacteria (None) /hpf Hyaline Casts (0-2) /lpf Urine Mucus (None) /hpf 11/12/16 11/13/16 11/13/16 Range/Units 20:46 07:22 07:22 WBC (3.8-10.6) k/uL Neutrophils # 8.1 H (1.3-7.7) k/uL Chloride 110 H (98-107) mmol/L Carbon Dioxide (22-30) mmol/L Glucose (74-99) mg/dL Plasma Lactic Acid [place] (0.7-2.0) mmol/L Calcium 8.3 L (8.4-10.2) mg/dL Urine Protein Trace H (Negative) Urine Glucose (UA) Trace H (Negative) Ur Leukocyte Esterase Moderate H (Negative) Urine WBC 8 H (0-5) /hpf Urine Bacteria Rare H (None) /hpf Hyaline Casts 13 H (0-2) /lpf Urine Mucus Rare H (None) /hpf Diabetes panel 11/12/16 11/13/16 Range/Units 19:32 07:22 Sodium 139 140 (137-145) mmol/L Potassium 3.6 4.0 (3.5-5.1) mmol/L Chloride 105 110 H (98-107) mmol/L Carbon Dioxide 21 L 22 (22-30) mmol/L BUN 17 15 (7-17) mg/dL Creatinine 0.70 0.69 (0.52-1.04) mg/dL Glucose 214 H 74 (74-99) mg/dL Calcium 9.5 8.3 L (8.4-10.2) mg/dL Calcium panel 11/12/16 11/13/16 Range/Units 19:32 07:22 Calcium 9.5 8.3 L (8.4-10.2) mg/dL Phosphorus 3.3 (2.5-4.5) mg/dL Pituitary panel 11/12/16 11/13/16 Range/Units 19:32 07:22 Sodium 139 140 (137-145) mmol/L Potassium 3.6 4.0 (3.5-5.1) mmol/L Chloride 105 110 H (98-107) mmol/L Carbon Dioxide 21 L 22 (22-30) mmol/L BUN 17 15 (7-17) mg/dL Creatinine 0.70 0.69 (0.52-1.04) mg/dL Glucose 214 H 74 (74-99) mg/dL Calcium 9.5 8.3 L (8.4-10.2) mg/dL Adrenal panel 11/12/16 11/13/16 Range/Units 19:32 07:22 Sodium 139 140 (137-145) mmol/L Potassium 3.6 4.0 (3.5-5.1) mmol/L Chloride 105 110 H (98-107) mmol/L Carbon Dioxide 21 L 22 (22-30) mmol/L BUN 17 15 (7-17) mg/dL Creatinine 0.70 0.69 (0.52-1.04) mg/dL Glucose 214 H 74 (74-99) mg/dL Calcium 9.5 8.3 L (8.4-10.2) mg/dL Assessment and Plan (1) Diverticulitis Narrative/Plan: Continue antibiotics. Continue liquid diet. We'll follow with you. Status: Acute
[2016-11-13] MEDS: ENOXAPARIN 40 MG/0.4 ML SYRINGE SQ SCH (13:22)
[2016-11-13] MEDS: metroNIDAZOLE-NS PMX 500 MG in SALINE 1 100ML.BAG IVPB SCH ×2 (16:10→23:27)
[2016-11-13] MEDS: ALPRAZolam 0.5 MG TAB PO PRN (18:16)
[2016-11-13] MEDS ORDERED: LOSARTAN 50 MG TAB PO SCH (21:00)
[2016-11-13 22:37] VITALS: RESP 16
[2016-11-14] MEDS: ALBUTEROL NEBULIZED 2.5 MG/3 ML INHALATION SCH (07:05)
[2016-11-14] MEDS: TIOTROPIUM 18 MCG/PUFF INHALER INHALATION SCH (07:06)
[2016-11-14] MEDS: SYMBICORT 160-4.5 MCG INHALER INHALATION SCH (07:06)
[2016-11-14 07:18] VITALS: BP 146/67; PULSE 75; TEMP 98
[2016-11-14] MEDS: metroNIDAZOLE-NS PMX 500 MG in SALINE 1 100ML.BAG IVPB SCH (07:47)
[2016-11-14] MEDS: PANTOPRAZOLE 40 MG TABLET PO SCH (07:47)
[2016-11-14] MEDS: ENOXAPARIN 40 MG/0.4 ML SYRINGE SQ SCH (07:48)
[2016-11-14] MEDS: GABAPENTIN 100 MG CAP PO SCH (07:48)
[2016-11-14] MEDS: DICYCLOMINE 10 MG CAP PO SCH (07:48)
[2016-11-14] MEDS: LOSARTAN 50 MG TAB PO SCH (07:50)
[2016-11-14] MEDS: MELOXICAM 7.5 MG TAB PO SCH (07:50)
[2016-11-14] MEDS: LEVOFLOXACIN 500MG-D5W PMX 500 MG in DEXTROSE/WATER 1 100ML.BAG IVPB SCH (09:09)
[2016-11-14 09:19] LABS: CH 29.5; CHCM 33.8; HCT 38.5 % (34.0-46.0); HDW 2.69; HGB 12.6 gm/dL (11.4-16.0); MCH 28.8 pg (25.0-35.0); MCHC 32.7 g/dL (31.0-37.0); MCV 87.9 fL (80.0-100.0); RBC 4.38 m/uL (3.80-5.40); RDW 13.9 % (11.5-15.5); WBC 7.1 k/uL (3.8-10.6)
[2016-11-14 09:22] LABS: ALT 31 U/L (9-52); AST 20 U/L (14-36); Alkaline Phosphatase 80 U/L (38-126); Anion Gap 8 mmol/L; Blood Urea Nitrogen 9 mg/dL (7-17); Calcium 8.5 mg/dL (8.4-10.2); Carbon Dioxide 21 mmol/L (22-30); Chloride 111 mmol/L (98-107); Glucose 62 mg/dL (74-99); Non-African American GFR(MDRD) >60 (>60 ml/min/1.73 sqM); Potassium 3.7 mmol/L (3.5-5.1); Sodium 140 mmol/L (137-145); Total Bilirubin 0.9 mg/dL (0.2-1.3); Total Protein 5.2 g/dL (6.3-8.2)
--- NOTE | 2016-11-14 10:55 | P.DS ---
Providers Date of admission: 11/12/16 21:23 Expected date of discharge: 11/14/16 Attending physician: Jeimy Sr Consults: 11/13/16 08:35 Consult Physician Routine Consulting Provider: Angel Burgos Consult Reason/Comments: diverticulitis Do you want consulting provider notified?: Yes Primary care physician: Alvin Alejandro [facility] Course: This is a 76-year-old female patient of Dr. Alejandro with a past history of diverticulitis with hospitalization in March 2016 for this, irritable bowel syndrome, pulmonic murmur, COPD, gastroesophageal reflux disease , hyperlipidemia, hypertension, history of pancreatitis, coronary artery disease with medical management, generalized anxiety. Patient states that she sometimes has a little touch of abdominal pain and goes away on its own but this time she was having abdominal pain in the left lower quadrant that continued to worsen. Her last bowel movement was yesterday. She has not been passing gas today. She denies any urinary symptoms. She denies nausea or vomiting. She has had decreased appetite. She came into the clinic [facility] for evaluation. She underwent a CAT scan of the abdomen and pelvis that revealed inflammatory changes around the sigmoid colon similar to old exam and consistent with diverticulitis or colitis. No free air. No abscess seen. Severe pulmonary emphysema. Patient was admitted to the [facility] floor, started on IV antibiotics and consult with general surgeon requested. Patient does have previous relationship with Dr. Burgos. Nothing by mouth diet will be advanced to clear liquids. 11/14: Patient has been seen by Dr. Burgos. Patient has been stable overnight and diet was advanced to full liquids last evening. Patient is anxious to be discharged. She states her abdominal pain is much improved. White count is down to 10. Patient will be discharged home on Flagyl and Levaquin for 8 more days and has been instructed to continue full liquid diet and advance very slowly. Discharge diagnoses: 1. Acute diverticulitis. 2. History of Irritable Bowel Syndrome. 3. Pulmonic murmur, longstanding. 4. COPD with tobacco use and dependence. 5. History of GERD. 6. Hyperlipidemia history. 7. Hypertension. 8. History of pancreatitis, no evidence currently. 9. Coronary artery disease history 10. Generalized anxiety disorder. Discharge plan: Return home Impression and plan of care have been directed as dictated by the signing physician. Keren Convery nurse practitioner acting as scribe for signing physician. CC: Dr. Alvin Alejandro Plan - Discharge Summary New Discharge Prescriptions: New Levofloxacin [Levaquin] 500 mg PO DAILY #8 tab metroNIDAZOLE [Flagyl] 500 mg PO TID #24 tab Continue Diphenox-Atrop 2.5-0.025 mg [Lomotil] 1 tab PO BID PRN PRN Reason: Diarrhea Gabapentin [Neurontin] 100 mg PO BID ALPRAZolam [Xanax] 1 mg PO TID PRN PRN Reason: Anxiety Albuterol Sulfate [Proair Hfa] 1 - 2 puff INHALATION RT-Q6H PRN PRN Reason: Shortness Of Breath Albuterol Nebulized [Ventolin Nebulized] 2.5 mg INHALATION RT-TID@ Prochlorperazine [Compazine] 10 mg PO TID PRN #30 tab PRN Reason: Nausea Omeprazole [PriLOSEC] 20 mg PO AC-BRKFST Losartan Potassium [Cozaar] 100 mg PO QAM Losartan Potassium [Cozaar] 50 mg PO HS Celecoxib [CeleBREX] 200 mg PO DAILY Budesonide/Formoterol Fumarate [Symbicort 160-4.5 Mcg Inhaler] 2 puff INHALATION RT-BID Dicyclomine [Bentyl] 10 mg PO BID Tiotropium [place] [Spiriva] 1 cap INHALATION RT-DAILY Discharge Medication List Diphenox-Atrop 2.5-0.025 mg [Lomotil] 1 tab PO BID PRN 09/17/14 [History] Gabapentin [Neurontin] 100 mg PO BID 09/17/14 [History] ALPRAZolam [Xanax] 1 mg PO TID PRN 06/16/15 [History] Albuterol Nebulized [Ventolin Nebulized] 2.5 mg INHALATION RT-TID@06/28 [History] Albuterol Sulfate [Proair Hfa] 1 - 2 puff INHALATION RT-Q6H PRN 06/16/15 [ History] Prochlorperazine [Compazine] 10 mg PO TID PRN #30 tab 06/18/15 [Rx] Losartan Potassium [Cozaar] 50 mg PO HS 03/06/16 [History] Losartan Potassium [Cozaar] 100 mg PO QAM 03/06/16 [History] Omeprazole [PriLOSEC] 20 mg PO AC-BRKFST 03/06/16 [History] Celecoxib [CeleBREX] 200 mg PO DAILY 06/20/16 [History] Budesonide/Formoterol Fumarate [Symbicort 160-4.5 Mcg Inhaler] 2 puff INHALATION RT-BID 11/12/16 [History] Dicyclomine [Bentyl] 10 mg PO BID 11/12/16 [History] Tiotropium [place] [Spiriva] 1 cap INHALATION RT-DAILY 11/12/16 [History] Levofloxacin [Levaquin] 500 mg PO DAILY #8 tab 11/14/16 [Rx] metroNIDAZOLE [Flagyl] 500 mg PO TID #24 tab 11/14/16 [Rx] Follow up Appointment(s)/Referral(s): Angel Burgos MD [Medical Doctor] - As Needed Alvin Alejandro DO [Primary Care Provider] - 1 Week (office will call you with appt. time) Patient Instructions/Handouts: Diverticulitis (GEN), Diverticulitis Diet (GEN) Activity/Diet/Wound Care/Special Instructions: soft bland diet activity as tolerated Discharge Disposition: HOME SELF-CARE
== END 2016-11-14 11:20 | disposition home or self-care (01) | DRG 392 ==
LOC: EC 18:33 → 5MS5E 21:23
PROVIDERS: ADMIT Internal Medicine; ATTEND Internal Medicine
DX: K57.32 Diverticulitis of large intestine without perforation or abscess without bleeding (principal); J44.9 Chronic obstructive pulmonary disease, unspecified; K21.9 Gastro-esophageal reflux disease without esophagitis; E78.5 Hyperlipidemia, unspecified; I10 Essential (primary) hypertension; I25.10 Atherosclerotic heart disease of native coronary artery without angina pectoris; F41.1 Generalized anxiety disorder; F17.210 Nicotine dependence, cigarettes, uncomplicated; G43.909 Migraine, unspecified, not intractable, without status migrainosus; M19.91 Primary osteoarthritis, unspecified site; K58.9 Irritable bowel syndrome, unspecified; Z90.49 Acquired absence of other specified parts of digestive tract; Z90.710 Acquired absence of both cervix and uterus; Z98.42 Cataract extraction status, left eye; Z98.41 Cataract extraction status, right eye; Z85.3 Personal history of malignant neoplasm of breast; Z90.12 Acquired absence of left breast and nipple; Z79.51 Long term (current) use of inhaled steroids; Z79.899 Other long term (current) drug therapy; Z88.5 Allergy status to narcotic agent; Z88.6 Allergy status to analgesic agent; Z91.041 Radiographic dye allergy status; F40.240 Claustrophobia; Z87.11 Personal history of peptic ulcer disease
CPT/HCPCS: 36415; 74176; 80048; 80053; 81001; 83605; 83735; 84100; 85025; 85027; 94640; 94760; 96361; 96365; 96375; 96376; 99285

== ENCOUNTER 2016-11-24 09:57 | Emergency (ER) | payer MEDICARE ==
[2016-11-24 10:25] VITALS: BP 181/101; PULSE 98; RESP 18; TEMP 97.8
[2016-11-24] MEDS ORDERED: KETOROLAC 60 MG/2 ML VIAL IM STA (10:31)
[2016-11-24] MEDS ORDERED: ORPHENADRINE 30 MG/ML 2 ML VIAL IM STA (10:31)
--- NOTE | 2016-11-24 10:34 | ED ---
General Adult HPI - General Chief complaint: Neck Pain/Injury Stated complaint: head and neck pain Time Seen by Provider: 11/24/16 10:00 Source: patient, RN notes reviewed Mode of arrival: ambulatory Limitations: no limitations - History of Present Illness Initial comments: This is a 76-year-old female who comes in with chronic neck pain. Patient states she has had for many years. Patient states his been no recent injury or trauma. Patient states just over the last couple of days when she got up from bed as the pain to be a little worse. Patient denies any fever or chills patient denies any headache patient denies any numbness weakness. Patient states it does hurt to turn her head to the left lower touch either her left or right trapezius muscle. Patient denies any areas swelling or redness. Patient denies any chest pain palpitations difficulty breathing shortness of breath patient denies any recent fever or chills. Patient states neck pain is much worse with any movement - Related Data Home Medications Medication Instructions Recorded Confirmed Diphenox-Atrop 2.5-0.025 mg 1 tab PO BID PRN 09/17/14 11/12/16 [Lomotil] Gabapentin [Neurontin] 100 mg PO BID 09/17/14 11/12/16 ALPRAZolam [Xanax] 1 mg PO TID PRN 06/16/15 11/12/16 Albuterol Nebulized [Ventolin 2.5 mg INHALATION RT-TID@08,14,1930 06/16/1511/12 Nebulized] Albuterol Sulfate [Proair Hfa] 1 - 2 puff INHALATION RT-Q6H PRN 06/16/15 Losartan Potassium [Cozaar] 50 mg PO HS 03/06/16 11/12/16 Losartan Potassium [Cozaar] 100 mg PO QAM 03/06/16 11/12/16 Omeprazole [PriLOSEC] 20 mg PO AC-BRKFST 03/06/16 11/12/16 Celecoxib [CeleBREX] 200 mg PO DAILY 06/20/16 11/12/16 Budesonide/Formoterol Fumarate 2 puff INHALATION RT-BID 11/12/16 11/12/16 [Symbicort 160-4.5 Mcg Inhaler] Dicyclomine [Bentyl] 10 mg PO BID 11/12/16 11/12/16 Tiotropium [place] [Spiriva] 1 cap INHALATION RT-DAILY 11/12/16 11/12/16 Previous Rx's Medication Instructions Recorded Prochlorperazine [Compazine] 10 mg PO TID PRN #30 tab 06/18/15 Levofloxacin [Levaquin] 500 mg PO DAILY #8 tab 11/14/16 metroNIDAZOLE [Flagyl] 500 mg PO TID #24 tab 11/14/16 Cyclobenzaprine [Flexeril] 10 mg PO TID #20 tab 11/24/16 Hydrocodone/Acetaminophen [[place] 1 each PO Q4HR PRN #10 tab 11/24/16 5-325] Allergies Allergy/AdvReac Type Severity Reaction Status Date / Time aspirin AdvReac Nausea Verified 11/24/16 10:24 codeine AdvReac Nausea Verified 11/24/16 10:24 Iodinated Contrast- Oral and AdvReac Vomiting Verified 11/24/16 10:24 IV Dye [Iodinated Contrast Media - IV Dye] Review of Systems ROS Statement: Those systems with pertinent positive or pertinent negative responses have been documented in the HPI. ROS Other: All systems not noted in ROS Statement are negative. Past Medical History Past Medical History: Asthma, Coronary Artery Disease (CAD), Cancer, Chest Pain / Angina, COPD, GERD/Reflux, Hypertension, Osteoarthritis (OA) Additional Past Medical History / Comment(s): pancreatitis, HTN, heart murmur since 1970s, bronchitis, IBS with diarrhea, osteoarthritis, peptic ulcer, sinusitis, UTI's, migraines, dizziness at times. History of Any Multi-Drug Resistant Organisms: None Reported Past Surgical History: Bladder Surgery, Cholecystectomy, Heart Catheterization, Hysterectomy, Orthopedic Surgery Additional Past Surgical History / Comment(s): 09/21/14 cardiac cath with disease -treated medically, cataracts bilaterally, rt rotator cuff, juan m carpal tunnel, bladder suspension, rectocele repair, hemorrhoidectomy, colonoscopies, camera endoscopy, EGD, left masectomy Past Anesthesia/Blood Transfusion Reactions: No Reported Reaction Additional Past Anesthesia/Blood Transfusion Reaction / Comment(s): Pt is claustrophobic. Past Psychological History: Anxiety Smoking Status: Light tobacco smoker Past Alcohol Use History: None Reported Past Drug Use History: None Reported - Past Family History Father Family Medical History: COPD Additional Family Medical History / Comment(s): Father is . Mother Family Medical History: CVA/TIA, Hypertension Additional Family Medical History / Comment(s): at age 91 Brother(s) Family Medical History: Cancer, Myocardial Infarction ([place]) Daughter(s) Family Medical History: No Reported History Son(s) Family Medical History: No Reported History Sister(s) Family Medical History: Cancer General Exam - General Exam Comments Initial Comments: GENERAL Patient is well-developed and well-nourished. Patient is in mild distress. EYES Patient's pupils are equal and round. Extraocular motion is intact ENT Patient's trapezius muscles are tender bilaterally. Patient has increased pain with looking to the right or left. Patient also has increased pain while flexing down fully SKIN Unremarkable NEURO The patient is alert and oriented 3. Patient has no numbness or weakness. PYSCH Patient has normal interpersonal interactions. MUSCULOSKELETAL All 4 extremities have full range of motion Limitations: no limitations Course Vital Signs 11/24/16 10:21 Temperature 97.8 F Pulse Rate 98 Respiratory 18 Rate Blood Pressure 181/101 O2 Sat by Pulse 95 Oximetry Medical Decision Making - Medical Decision Making patient states she can take NSAIDs even though she is ALLERGIC to aspirin. Disposition Clinical Impression: Strain of neck muscle, Chronic neck pain Disposition: HOME SELF-CARE Condition: Good Instructions: Cervical Strain (ED) Prescriptions: Cyclobenzaprine [Flexeril] 10 mg PO TID #20 tab Hydrocodone/Acetaminophen [[place] 5-325] 1 each PO Q4HR PRN #10 tab PRN Reason: Pain Referrals: Alvin Alejandro DO [Primary Care Provider] - 1-2 days Time of Disposition: 10:35
== END 2016-11-24 10:54 | disposition home or self-care (01) ==
LOC: EC 09:57
DX: S16.1XXA Strain of muscle, fascia and tendon at neck level, initial encounter (principal); M54.2 Cervicalgia; G89.29 Other chronic pain; J44.9 Chronic obstructive pulmonary disease, unspecified; I10 Essential (primary) hypertension; K21.9 Gastro-esophageal reflux disease without esophagitis; M19.90 Unspecified osteoarthritis, unspecified site; K58.9 Irritable bowel syndrome, unspecified; I25.10 Atherosclerotic heart disease of native coronary artery without angina pectoris; F17.200 Nicotine dependence, unspecified, uncomplicated; Z85.9 Personal history of malignant neoplasm, unspecified; Z88.6 Allergy status to analgesic agent; Z88.5 Allergy status to narcotic agent; Z91.041 Radiographic dye allergy status; Z79.51 Long term (current) use of inhaled steroids; Z79.899 Other long term (current) drug therapy; X58.XXXA Exposure to other specified factors, initial encounter
CPT/HCPCS: 99283; 96372 ×2; J2360; J1885

== ENCOUNTER 2016-11-26 17:33 | Emergency (ER) | payer MEDICARE ==
[2016-11-26 17:53] VITALS: RESP 18; TEMP 98.3
[2016-11-26] MEDS ORDERED: HYDROmorphone 1 MG/ML 1 ML SYRINGE IM STA (18:08)
[2016-11-26] MEDS ORDERED: MORPHINE SULFATE 4 MG/ML SYRINGE IM STA (18:13)
--- NOTE | 2016-11-26 18:40 | ED ---
General Adult HPI - General Chief complaint: Neck Pain/Injury Stated complaint: Head/neck pain revisit Time Seen by Provider: 11/26/16 18:01 Source: patient, RN notes reviewed Mode of arrival: ambulatory Limitations: no limitations - History of Present Illness Initial comments: Is a 76-year-old female presents emergency Department with chief complaint of head and neck pain. Patient states that she's had some chronic issues over the years and which she is receiving injections by her PCP in her neck region. Patient states that she was seen here 2 days ago and was given Flexeril and [place] with no relief of her symptoms. She states that it continues to hurt is worse with movement however neck. She states she has worse pain on the right side that radiates up into her forehead. She denies any confusion no focal weakness. She states she does have some pain that radiates into her right upper arm region. Patient denies chest pain, shortness breath, trauma, fever, chills, nausea vomiting. - Related Data Home Medications Medication Instructions Recorded Confirmed Diphenox-Atrop 2.5-0.025 mg 1 tab PO BID PRN 09/17/14 11/12/16 [Lomotil] Gabapentin [Neurontin] 100 mg PO BID 09/17/14 11/12/16 ALPRAZolam [Xanax] 1 mg PO TID PRN 06/16/15 11/12/16 Albuterol Nebulized [Ventolin 2.5 mg INHALATION RT-TID@08,14,1930 06/16/1511/12 Nebulized] Albuterol Sulfate [Proair Hfa] 1 - 2 puff INHALATION RT-Q6H PRN 06/16/15 Losartan Potassium [Cozaar] 50 mg PO HS 03/06/16 11/12/16 Losartan Potassium [Cozaar] 100 mg PO QAM 03/06/16 11/12/16 Omeprazole [PriLOSEC] 20 mg PO AC-BRKFST 03/06/16 11/12/16 Celecoxib [CeleBREX] 200 mg PO DAILY 06/20/16 11/12/16 Budesonide/Formoterol Fumarate 2 puff INHALATION RT-BID 11/12/16 11/12/16 [Symbicort 160-4.5 Mcg Inhaler] Dicyclomine [Bentyl] 10 mg PO BID 11/12/16 11/12/16 Tiotropium [place] [Spiriva] 1 cap INHALATION RT-DAILY 11/12/16 11/12/16 Previous Rx's Medication Instructions Recorded Prochlorperazine [Compazine] 10 mg PO TID PRN #30 tab 06/18/15 Levofloxacin [Levaquin] 500 mg PO DAILY #8 tab 11/14/16 metroNIDAZOLE [Flagyl] 500 mg PO TID #24 tab 11/14/16 Cyclobenzaprine [Flexeril] 10 mg PO TID #20 tab 11/24/16 Hydrocodone/Acetaminophen [[place] 1 each PO Q4HR PRN #10 tab 11/24/16 5-325] Methocarbamol [Robaxin] 500 mg PO TID PRN #15 tab 11/26/16 predniSONE 50 mg PO DAILY #5 tab 11/26/16 Allergies Allergy/AdvReac Type Severity Reaction Status Date / Time aspirin AdvReac Nausea Verified 11/26/16 17:52 codeine AdvReac Nausea Verified 11/26/16 17:52 Iodinated Contrast- Oral and AdvReac Vomiting Verified 11/26/16 17:52 IV Dye [Iodinated Contrast Media - IV Dye] Review of Systems ROS Statement: Those systems with pertinent positive or pertinent negative responses have been documented in the HPI. ROS Other: All systems not noted in ROS Statement are negative. Past Medical History Past Medical History: Asthma, Coronary Artery Disease (CAD), Cancer, Chest Pain / Angina, COPD, GERD/Reflux, Hypertension, Osteoarthritis (OA) Additional Past Medical History / Comment(s): pancreatitis, HTN, heart murmur since 1970s, bronchitis, IBS with diarrhea, osteoarthritis, peptic ulcer, sinusitis, UTI's, migraines, dizziness at times. History of Any Multi-Drug Resistant Organisms: None Reported Past Surgical History: Bladder Surgery, Cholecystectomy, Heart Catheterization, Hysterectomy, Orthopedic Surgery Additional Past Surgical History / Comment(s): 09/21/14 cardiac cath with disease -treated medically, cataracts bilaterally, rt rotator cuff, juan m carpal tunnel, bladder suspension, rectocele repair, hemorrhoidectomy, colonoscopies, camera endoscopy, EGD, left masectomy Past Anesthesia/Blood Transfusion Reactions: No Reported Reaction Additional Past Anesthesia/Blood Transfusion Reaction / Comment(s): Pt is claustrophobic. Past Psychological History: Anxiety Smoking Status: Light tobacco smoker Past Alcohol Use History: None Reported Past Drug Use History: None Reported - Past Family History Father Family Medical History: COPD Additional Family Medical History / Comment(s): Father is . Mother Family Medical History: CVA/TIA, Hypertension Additional Family Medical History / Comment(s): at age 91 Brother(s) Family Medical History: Cancer, Myocardial Infarction ([place]) Daughter(s) Family Medical History: No Reported History Son(s) Family Medical History: No Reported History Sister(s) Family Medical History: Cancer General Exam Limitations: no limitations General appearance: alert, in no apparent distress Head exam: Present: atraumatic, normocephalic, normal inspection Eye exam: Present: normal appearance, PERRL, EOMI. Absent: scleral icterus, conjunctival injection, periorbital swelling ENT exam: Present: normal exam, mucous membranes dry, mucous membranes moist, TM 's normal bilaterally Neck exam: Present: normal inspection, tenderness (There is diffuse tenderness over been cervical paraspinal region worse on the right compared to the left is also tenderness over the trapezius muscle). Absent: meningismus, full ROM ( Patient refuses to go through range of motion she states it increases her pain) , lymphadenopathy Respiratory exam: Present: normal lung sounds bilaterally. Absent: respiratory distress, wheezes, rales, rhonchi, stridor Cardiovascular Exam: Present: regular rate, normal rhythm, normal heart sounds. Absent: systolic murmur, diastolic murmur, rubs, gallop, clicks Neurological exam: Present: alert, oriented X3, CN II-XII intact, reflexes normal. Absent: motor sensory deficit Skin exam: Present: warm, dry, intact, normal color. Absent: rash Course Vital Signs 11/26/16 17:49 Temperature 98.3 F Pulse Rate 109 H Respiratory 18 Rate Blood Pressure 184/82 O2 Sat by Pulse 94 L Oximetry Medical Decision Making - Medical Decision Making 36-year-old female presented for neck pain, pain radiates up to her scalp. Patient's symptoms started mimic occipital neuralgia. Patient CT does show some spondylitic pieces of the cervical spine may be leading to her radicular pain of her right arm. Patient's will be given steroids at this time follow with Dr. Ahn in her primary care physician [place] relaxers will be switched to Robaxin and she is advised to continue heat and ice in her neck. Disposition Clinical Impression: Cervicalgia, Spondylosis of cervical spine, Occipital neuralgia Disposition: HOME SELF-CARE Condition: Stable Instructions: Cervical Radiculopathy (ED) Additional Instructions: Please return to the Emergency Department if symptoms worsen or any other concerns. Prescriptions: Methocarbamol [Robaxin] 500 mg PO TID PRN #15 tab PRN Reason: muscle spasms predniSONE 50 mg PO DAILY #5 tab Referrals: Alvin Alejandro DO [Primary Care Provider] - 1-2 days Martha Smith DO [Doctor of Osteopathic Medicine] - 1-2 days Time of Disposition: 19:10
--- NOTE | 2016-11-26 18:54 | CT ---
EXAMINATION TYPE: CT brain rasheeda emery DATE OF EXAM: 11/26/2016 COMPARISON: CT brain 05/20/2014 HISTORY: Posterior head and neck pain that flares up from time to time. No known injury. CT DLP: 1439.00 mGycm Automated exposure control for dose reduction was used. TECHNIQUE: CT scan of the head and cervical spine are performed without contrast. FINDINGS: Ventricles of normal size. There is no mass effect nor midline shift. There is no sign of intracranial hemorrhage. The calvarium is intact. Cervical vertebra have normal alignment. There is narrowing at C5-C6 disc space with spurring of the endplates. Facet joints are intact. The skull base is intact. There is emphysema and fibrotic change at the lung apices. IMPRESSION: Negative CT scan of the brain. No change. Mild spondylosis at C5-6. No fracture. Pulmonary emphysema.
[2016-11-26] MEDS ORDERED: predniSONE 50 MG TAB PO STA (19:05)
[2016-11-26 19:18] VITALS: BP 189/86; PULSE 102
== END 2016-11-26 19:21 | disposition home or self-care (01) ==
LOC: EC 17:33
DX: M47.892 Other spondylosis, cervical region (principal); M54.81 Occipital neuralgia; I25.10 Atherosclerotic heart disease of native coronary artery without angina pectoris; J44.9 Chronic obstructive pulmonary disease, unspecified; K21.9 Gastro-esophageal reflux disease without esophagitis; I10 Essential (primary) hypertension; M19.90 Unspecified osteoarthritis, unspecified site; K58.9 Irritable bowel syndrome, unspecified; F41.9 Anxiety disorder, unspecified; F17.200 Nicotine dependence, unspecified, uncomplicated; Z79.51 Long term (current) use of inhaled steroids; Z79.899 Other long term (current) drug therapy; Z88.5 Allergy status to narcotic agent; Z88.6 Allergy status to analgesic agent; Z91.041 Radiographic dye allergy status
CPT/HCPCS: 72125; 70450; 99283; 96372; J2270; J7512

== ENCOUNTER 2017-01-17 17:25 | Emergency (ER) | payer MEDICARE ==
[2017-01-17 17:37] VITALS: TEMP 97.4
[2017-01-17] MEDS ORDERED: SODIUM CHLORIDE 0.9% 1,000 ML IV ONE (18:04)
[2017-01-17] MEDS ORDERED: KETOROLAC 30 MG/ML 1 ML VIAL IVP STA (18:04)
[2017-01-17] MEDS ORDERED: ONDANSETRON 4 MG/2 ML VIAL IVP STA (18:04)
[2017-01-17] MEDS ORDERED: BARIUM SULFATE 450 ML ORAL.SUSP BOTTLE PO PRN (18:04)
[2017-01-17] MEDS ORDERED: diphenhydrAMINE 50 MG/ML 1 ML VIAL IVP STA (18:04)
[2017-01-17] MEDS ORDERED: RX INFO: IV CONTRAST WAS GIVEN 1 EACH MISC MISCELLANE PRN (18:04)
--- NOTE | 2017-01-17 18:35 | ED ---
Female Urogenital HPI - General Chief complaint: Vaginal Bleeding Stated complaint: Recheck, vaginal bleeding Time Seen by Provider: 01/17/17 17:38 Source: patient Mode of arrival: ambulatory Limitations: no limitations - History of Present Illness Initial comments: The patient is a 76-year-old female presents with a chief complaint of vaginal discharge 3 days. Patient describes her discharge is mucoid with streaks of blood in it. Patient states this has never happened to her before. Patient states that the discharge is constant however she tends to have increased discharge and a "spray" around the time that she has a bowel movement. Patient has a significant history of recent diverticulitis for which she was hospitalized twice in the last 2 months. Patient cannot identify any other aggravating or alleviating factors. Patient denies fevers, diarrhea, blood in her stool, or dysuria. - Related Data Home Medications Medication Instructions Recorded Confirmed Diphenox-Atrop 2.5-0.025 mg 1 tab PO BID PRN 09/17/14 01/17/17 [Lomotil] Gabapentin [Neurontin] 100 mg PO BID 09/17/14 01/17/17 ALPRAZolam [Xanax] 1 mg PO TID PRN 06/16/15 01/17/17 Albuterol Nebulized [Ventolin 2.5 mg INHALATION RT-TID 06/16/15 01/17/17 Nebulized] Losartan Potassium [Cozaar] 50 mg PO HS 03/06/16 01/17/17 Losartan Potassium [Cozaar] 100 mg PO QAM 03/06/16 01/17/17 Omeprazole [PriLOSEC] 20 mg PO DAILY 03/06/16 01/17/17 Celecoxib [CeleBREX] 200 mg PO DAILY 06/20/16 01/17/17 Budesonide/Formoterol Fumarate 2 puff INHALATION RT-BID 11/12/16 01/17/17 [Symbicort 160-4.5 Mcg Inhaler] Dicyclomine [Bentyl] 10 mg PO BID 11/12/16 01/17/17 Tiotropium [place] [Spiriva] 1 cap INHALATION RT-DAILY 11/12/16 01/17/17 Previous Rx's Medication Instructions Recorded Prochlorperazine [Compazine] 10 mg PO TID PRN #30 tab 06/18/15 Ciprofloxacin HCl [Cipro] 500 mg PO Q12HR #14 tablet 01/17/17 metroNIDAZOLE [Flagyl] 500 mg PO TID #21 tab 01/17/17 Allergies Allergy/AdvReac Type Severity Reaction Status Date / Time aspirin AdvReac Nausea Verified 01/17/17 18:56 codeine AdvReac Nausea Verified 01/17/17 18:56 Iodinated Contrast- Oral and AdvReac Vomiting Verified 01/17/17 18:56 IV Dye [Iodinated Contrast Media - IV Dye] Review of Systems ROS Statement: Those systems with pertinent positive or pertinent negative responses have been documented in the HPI. ROS Other: All systems not noted in ROS Statement are negative. Constitutional: Denies: fever Eyes: Denies: vision change ENT: Denies: congestion Respiratory: Denies: cough Cardiovascular: Denies: chest pain Endocrine: Denies: fatigue Gastrointestinal: Reports: abdominal pain, nausea, diarrhea. Denies: vomiting, constipation Genitourinary: Reports: discharge. Denies: dysuria, frequency Musculoskeletal: Denies: back pain Skin: Denies: rash Neurological: Denies: headache Past Medical History Past Medical History: Asthma, Coronary Artery Disease (CAD), Cancer, Chest Pain / Angina, COPD, GERD/Reflux, Hypertension, Osteoarthritis (OA) Additional Past Medical History / Comment(s): pancreatitis, HTN, heart murmur since 1970s, bronchitis, IBS with diarrhea, osteoarthritis, peptic ulcer, sinusitis, UTI's, migraines, dizziness at times. History of Any Multi-Drug Resistant Organisms: None Reported Past Surgical History: Bladder Surgery, Cholecystectomy, Heart Catheterization, Hysterectomy, Orthopedic Surgery Additional Past Surgical History / Comment(s): 09/21/14 cardiac cath with disease -treated medically, cataracts bilaterally, rt rotator cuff, juan m carpal tunnel, bladder suspension, rectocele repair, hemorrhoidectomy, colonoscopies, camera endoscopy, EGD, left masectomy Past Anesthesia/Blood Transfusion Reactions: No Reported Reaction Additional Past Anesthesia/Blood Transfusion Reaction / Comment(s): Pt is claustrophobic. Past Psychological History: Anxiety Smoking Status: Light tobacco smoker Past Alcohol Use History: None Reported Past Drug Use History: None Reported - Past Family History Father Family Medical History: COPD Additional Family Medical History / Comment(s): Father is . Mother Family Medical History: CVA/TIA, Hypertension Additional Family Medical History / Comment(s): at age 91 Brother(s) Family Medical History: Cancer, Myocardial Infarction ([place]) Daughter(s) Family Medical History: No Reported History Son(s) Family Medical History: No Reported History Sister(s) Family Medical History: Cancer General Exam Limitations: no limitations General appearance: alert, in no apparent distress Head exam: Present: atraumatic, normocephalic Eye exam: Present: normal appearance Respiratory exam: Present: normal lung sounds bilaterally Cardiovascular Exam: Present: regular rate, normal rhythm, normal heart sounds GI/Abdominal exam: Present: soft. 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 This is secondary to patient's hysterectomy. There is copious amounts of yellow discharge present.) Extremities exam: Present: normal inspection Back exam: Present: normal inspection Neurological exam: Present: alert, oriented X3 Psychiatric exam: Present: normal affect, normal mood Skin exam: Present: warm, dry, intact Course Vital Signs 01/17/17 17:33 Temperature 97.4 F L Pulse Rate 87 Respiratory 16 Rate Blood Pressure 174/84 O2 Sat by Pulse 98 Oximetry Medical Decision Making - Medical Decision Making Patient is 76-year-old female presents with a chief complaint of vaginal discharge. Patient has a history of a hysterectomy, and a more recent history of diverticulitis for which she was hospitalized twice for. She was supposed to have a CAT scan today as ordered by her primary care doctor but was unable to get it as she is ALLERGIC to contrast dye. On review of her ALLERGY, the patient states that she got contrast I one time and it made her nauseous. At this time given her recent history of diverticulitis, and her other history and physical examination, there is concern for possible communicating colonic abscess. Pelvic exam does not reveal any obvious communication, therefore patient will be premedicated, and sent for computed tomography scan of the abdomen and pelvis with IV and oral contrast. 9:15 PM Plan evaluation this patient is unremarkable. Computed tomography scan of the abdomen and pelvis with IV and oral contrast shows what appears to be chronic inflammation of the colon, and redemonstration of diverticulosis without active diverticulitis. There does not appear to be any communication between the colon and vagina. At this time, discussed treatment options with the patient. I'll prescribe ciprofloxacin and Flagyl to cover any lingering colitis and to cover bacterial vaginosis. Patient will be given resources for [facility] follow- up. She is instructed to follow up with primary care in 2-3 days or to return to the emergency department if her symptoms worsen or change in anyway. At this time, all of her questions are answered to the best my ability. Patient is stable for discharge. - Lab Data Result diagrams: 01/17/17 18:38 01/17/17 18:38 Lab Results 01/17/17 01/17/17 Range/Units 18:38 18:38 WBC 9.8 (3.8-10.6) k/uL RBC 4.64 (3.80-5.40) m/uL Hgb 13.5 (11.4-16.0) gm/dL Hct 41.7 (34.0-46.0) % MCV 89.7 (80.0-100.0) fL MCH 29.0 (25.0-35.0) pg MCHC 32.3 (31.0-37.0) g/dL RDW 15.3 (11.5-15.5) % Plt Count 329 (150-450) k/uL Neutrophils % 74 % Lymphocytes % 16 % Monocytes % 5 % Eosinophils % 2 % Basophils % 0 % Neutrophils # 7.3 (1.3-7.7) k/uL Lymphocytes # 1.6 (1.0-4.8) k/uL Monocytes # 0.5 (0-1.0) k/uL Eosinophils # 0.1 (0-0.7) k/uL Basophils # 0.0 (0-0.2) k/uL Sodium 141 (137-145) mmol/L Potassium 4.4 (3.5-5.1) mmol/L Chloride 107 (98-107) mmol/L Carbon Dioxide 27 (22-30) mmol/L Anion Gap 7 mmol/L BUN 22 H (7-17) mg/dL Creatinine 0.80 (0.52-1.04) mg/dL Est GFR (MDRD) Af Amer >60 (>60 ml/min/1.73 sqM) Est GFR (MDRD) Non-Af >60 (>60 ml/min/1.73 sqM) Glucose 98 (74-99) mg/dL Calcium 9.3 (8.4-10.2) mg/dL Total Bilirubin 0.2 (0.2-1.3) mg/dL AST 14 (14-36) U/L ALT 22 (9-52) U/L Alkaline Phosphatase 84 (38-126) U/L Total Protein 5.7 L (6.3-8.2) g/dL Albumin 3.1 L (3.5-5.0) g/dL Disposition Clinical Impression: Bacterial vaginosis, Chronic colitis, Vaginal discharge Disposition: HOME SELF-CARE Condition: Good Instructions: Bacterial Vaginosis (ED) Prescriptions: Ciprofloxacin HCl [Cipro] 500 mg PO Q12HR #14 tablet metroNIDAZOLE [Flagyl] 500 mg PO TID #21 tab Referrals: Alvin Alejandro DO [Primary Care Provider] - 1-2 days Soni Marquez DO [Doctor of Osteopathic Medicine] - 1-2 days Neetu Barnhart DO [Doctor of Osteopathic Medicine] - 1-2 days
[2017-01-17 18:46] LABS: Basophils % (A) 0 %; CH 30.3; Eosinophils # (A) 0.1 k/uL (0-0.7); Eosinophils % (A) 2 %; HCT 41.7 % (34.0-46.0); HDW 2.63; HGB 13.5 gm/dL (11.4-16.0); Luc # (Auto) 0.24; Luc % (Auto) 3; Lymphocytes # (A) 1.6 k/uL (1.0-4.8); Lymphocytes % (A) 16 %; MCHC 32.3 g/dL (31.0-37.0); MCV 89.7 fL (80.0-100.0); Mean Platelet Volume 6.9; Monocytes # (A) 0.5 k/uL (0-1.0); Monocytes % (A) 5 %; Neutrophils # (A) 7.3 k/uL (1.3-7.7); Neutrophils % (A) 74 %; RBC 4.64 m/uL (3.80-5.40); RDW 15.3 % (11.5-15.5); WBC 9.8 k/uL (3.8-10.6)
[2017-01-17 18:56] LABS: ALT 22 U/L (9-52); AST 14 U/L (14-36); Alkaline Phosphatase 84 U/L (38-126); Anion Gap 7 mmol/L; Blood Urea Nitrogen 22 mg/dL (7-17); Calcium 9.3 mg/dL (8.4-10.2); Carbon Dioxide 27 mmol/L (22-30); Chloride 107 mmol/L (98-107); Glucose 98 mg/dL (74-99); Non-African American GFR(MDRD) >60 (>60 ml/min/1.73 sqM); Potassium 4.4 mmol/L (3.5-5.1); Sodium 141 mmol/L (137-145); Total Bilirubin 0.2 mg/dL (0.2-1.3); Total Protein 5.7 g/dL (6.3-8.2)
--- NOTE | 2017-01-17 20:51 | CT ---
EXAMINATION TYPE: CT abdomen pelvis w con DATE OF EXAM: 01/17/2017 REFERENCE: Previous study dated 11/12/2016. HISTORY: Pain HISTORY: Vaginal bleeding/discharge x [address] DLP: 782.00 mGy Automated exposure control for dose reduction was used. TECHNIQUE: Helical acquisition through the abdomen and pelvis was obtained following the oral ingesti on of with Oral Contrast and following intravenous administration of 100 mL of Omnipaque 300. The karl a was reformatted in axial, coronal and sagittal projections. FINDINGS: There are emphysematous changes within the lungs. There is no pleural or is not enlarged. There is a small hiatal hernia. There is a stable, 12 mm lobulated low attenuating lesion within the dome of the right lobe of the li roxie. This likely represents a cyst. There is a smaller lesion at the extreme dome. This measures 7 mm . This was also present previously. The gallbladder is absent. There is some mild central biliary dil atation. The spleen is normal. The pancreas is unremarkable. The pancreatic duct is visible but not dilated. Both adrenal glands are normal. There is a 2 -diverticulosis of the sigmoid colon. 6. Inflammatory change involving the sigmoid:, Very similar to the previous study may resent divertic ulosis of the sigmoid colon. 6. 3 mm, nonobstructing calculus in the posterior upper pole calyx of the right kidney. The kidneys a re otherwise normal. There is no evidence of obstruction or hydronephrosis. There is no significant retroperitoneal, iliac or inguinal adenopathy. The bladder is unremarkable. There is calcification involving the prostate gland. There is some induration surrounding the rectosigmoid junction and proximal sigmoid colon. This is ve ry similar to the previous examination. There are diverticula throughout the sigmoid region. This may represent chronic colitis. It is less likely represent diverticulitis to is long-standing nature. The appendix is not visualized. Small bowel loops are normal in caliber. There are 6 scattered air-fluid levels within the small wanda l. The uterus and ovaries are not visualized. There is no free fluid and no free air. There is a stable sclerotic focus in the left iliac bone. There is degenerative disc disease at L5-S1 and to a lesser extent L4-5. No bony destructive lesion i s seen. IMPRESSION: 1. 2 LESIONS WITHIN THE RIGHT LOBE OF THE LIVER LIKELY REPRESENT CYSTS. THIS CAN BE CONFIRMED WITH UL TRASOUND. 2. EMPHYSEMATOUS CHANGES WITHIN THE LUNGS. 3. SMALL HIATAL HERNIA. 4. NONOBSTRUCTING 2 TO 3 MM CALCULUS INVOLVING THE UPPER POLE CALYX OF THE RIGHT KIDNEY. 5. DIVERTICULOSIS OF THE SIGMOID COLON. 6. INFLAMMATORY CHANGE OR INDURATION SURROUNDING THE SIGMOID COLON AND RECTOSIGMOID JUNCTION MAY REFL ECT CHRONIC COLITIS. DIVERTICULITIS IS FELT TO BE LESS LIKELY 7. SEVERAL AIR-FLUID LEVELS WITHIN THE SMALL BOWEL MAY REPRESENT SMALL BOWEL ILEUS. 8. STABLE, SCLEROTIC FOCUS IN THE LEFT ILIAC BONE.
[2017-01-17 22:53] VITALS: BP 174/77; PULSE 86; RESP 18
== END 2017-01-17 21:54 | disposition home or self-care (01) ==
LOC: EC 17:25
DX: N76.0 Acute vaginitis (principal); K52.9 Noninfective gastroenteritis and colitis, unspecified; J44.9 Chronic obstructive pulmonary disease, unspecified; K21.9 Gastro-esophageal reflux disease without esophagitis; I10 Essential (primary) hypertension; K58.0 Irritable bowel syndrome with diarrhea; F17.200 Nicotine dependence, unspecified, uncomplicated; Z85.9 Personal history of malignant neoplasm, unspecified; Z90.710 Acquired absence of both cervix and uterus; Z88.6 Allergy status to analgesic agent; Z88.5 Allergy status to narcotic agent; Z91.041 Radiographic dye allergy status; Z79.51 Long term (current) use of inhaled steroids; Z79.899 Other long term (current) drug therapy
CPT/HCPCS: 99284 ×2; 96374 ×2; 96375 ×3; 96361 ×4; 36415; 80053; 85025; 87070; 87205; 87077; 87186; 74177; J1200; J2405; J1885; Q9967

== ENCOUNTER 2017-01-20 15:23 | Inpatient (IN) | payer MEDICARE ==
[2017-01-20] MEDS ORDERED: BARIUM SULFATE 450 ML ORAL.SUSP BOTTLE PO PRN (15:50)
[2017-01-20] MEDS ORDERED: RX INFO: IV CONTRAST WAS GIVEN 1 EACH MISC MISCELLANE PRN (15:50)
[2017-01-20] MEDS ORDERED: diphenhydrAMINE 50 MG/ML 1 ML VIAL IVP STA (15:50)
[2017-01-20] MEDS ORDERED: methylPREDNISolone SOD SUCCI 125 MG/2 ML VIAL IV STA (15:50)
[2017-01-20] MEDS ORDERED: FAMOTIDINE 20 MG/2 ML VIAL IV STA (15:50)
--- NOTE | 2017-01-20 15:58 | ED ---
General Adult HPI - General Chief complaint: Urogenital Stated complaint: Female -sent by Time Seen by Provider: 01/20/17 15:39 Source: patient, RN notes reviewed Mode of arrival: ambulatory Limitations: no limitations - History of Present Illness Initial comments: 76 yo female presents to the ER with cc of passing stool per Luis Armando. Patient states that she started with a bloody-like discharge from her vagina a few days ago. Patient states that she started to pass some gas in the vagina and then she had stool that came out of the vagina today. Patient states that she did have stool from the rectum and that was loose. Patient denies any pain but think should have pain a few days ago when the blood was coming from the vagina. Patient states that she called her doctor and she was referred here. Patient this time denies any pain or discomfort. Patient states she has been using the Cipro Flagyl that she was prescribed for the vaginal bacterial infection. Patient was concerned due to her worsening symptoms and her doctor sent her in to be reevaluated. Patient denies any recent fever, chills, shortness of breath, chest pain, back pain, abdominal pain, nausea vomiting, numbness or tingling, dysuria or hematuria, constipation or diarrhea, headaches or visual changes, or any other current symptoms. - Related Data Home Medications Medication Instructions Recorded Confirmed Diphenox-Atrop 2.5-0.025 mg 1 tab PO BID PRN 09/17/14 01/20/17 [Lomotil] Gabapentin [Neurontin] 100 mg PO BID 09/17/14 01/20/17 ALPRAZolam [Xanax] 1 mg PO TID PRN 06/16/15 01/20/17 Albuterol Nebulized [Ventolin 2.5 mg INHALATION RT-TID 06/16/15 01/20/17 Nebulized] Losartan Potassium [Cozaar] 50 mg PO HS 03/06/16 01/20/17 Losartan Potassium [Cozaar] 100 mg PO QAM 03/06/16 01/20/17 Omeprazole [PriLOSEC] 20 mg PO DAILY 03/06/16 01/20/17 Celecoxib [CeleBREX] 200 mg PO DAILY 06/20/16 01/20/17 Budesonide/Formoterol Fumarate 2 puff INHALATION RT-BID 11/12/16 01/20/17 [Symbicort 160-4.5 Mcg Inhaler] Dicyclomine [Bentyl] 10 mg PO BID 11/12/16 01/20/17 Tiotropium [place] [Spiriva] 1 cap INHALATION RT-DAILY 11/12/16 01/20/17 Previous Rx's Medication Instructions Recorded Prochlorperazine [Compazine] 10 mg PO TID PRN #30 tab 06/18/15 Ciprofloxacin HCl [Cipro] 500 mg PO Q12HR #14 tablet 01/17/17 metroNIDAZOLE [Flagyl] 500 mg PO TID #21 tab 01/17/17 Allergies Allergy/AdvReac Type Severity Reaction Status Date / Time aspirin AdvReac Nausea Verified 01/20/17 15:55 codeine AdvReac Nausea Verified 01/20/17 15:55 Iodinated Contrast- Oral and AdvReac Vomiting Verified 01/20/17 15:55 IV Dye [Iodinated Contrast Media - IV Dye] Review of Systems ROS Statement: Those systems with pertinent positive or pertinent negative responses have been documented in the HPI. ROS Other: All systems not noted in ROS Statement are negative. Past Medical History Past Medical History: Asthma, Coronary Artery Disease (CAD), Cancer, Chest Pain / Angina, COPD, GERD/Reflux, Hypertension, Osteoarthritis (OA) Additional Past Medical History / Comment(s): pancreatitis, HTN, heart murmur since 1970s, bronchitis, IBS with diarrhea, osteoarthritis, peptic ulcer, sinusitis, UTI's, migraines, dizziness at times. breast cancer History of Any Multi-Drug Resistant Organisms: None Reported Past Surgical History: Bladder Surgery, Cholecystectomy, Heart Catheterization, Hysterectomy, Orthopedic Surgery Additional Past Surgical History / Comment(s): 09/21/14 cardiac cath with disease -treated medically, cataracts bilaterally, rt rotator cuff, juan m carpal tunnel, bladder suspension, rectocele repair, hemorrhoidectomy, colonoscopies, camera endoscopy, EGD, left masectomy Past Anesthesia/Blood Transfusion Reactions: No Reported Reaction Additional Past Anesthesia/Blood Transfusion Reaction / Comment(s): Pt is claustrophobic. Past Psychological History: Anxiety Smoking Status: Light tobacco smoker Past Alcohol Use History: None Reported Past Drug Use History: None Reported - Past Family History Father Family Medical History: COPD Additional Family Medical History / Comment(s): Father is . Mother Family Medical History: CVA/TIA, Hypertension Additional Family Medical History / Comment(s): at age 91 Brother(s) Family Medical History: Cancer, Myocardial Infarction ([place]) Daughter(s) Family Medical History: No Reported History Son(s) Family Medical History: No Reported History Sister(s) Family Medical History: Cancer General Exam Limitations: no limitations General appearance: alert, in no apparent distress Eye exam: Present: normal appearance, PERRL, EOMI. Absent: scleral icterus, conjunctival injection, periorbital swelling ENT exam: Present: normal exam, mucous membranes moist Neck exam: Present: normal inspection. Absent: tenderness, meningismus, lymphadenopathy Respiratory exam: Present: normal lung sounds bilaterally. Absent: respiratory distress, wheezes, rales, rhonchi, stridor Cardiovascular Exam: Present: regular rate, normal rhythm, normal heart sounds. Absent: systolic murmur, diastolic murmur, rubs, gallop, clicks GI/Abdominal exam: Present: soft, normal bowel sounds. Absent: distended, tenderness, guarding, rebound, rigid Rectal exam: Present: normal inspection, normal rectal tone, tenderness External exam: Present: other (Brown-type external discharge noted) Speculum exam: Present: other (Tenderness with bimanual palpation. Patient unable to tolerate speculum exam) Extremities exam: Present: normal inspection, full ROM, normal capillary refill. Absent: tenderness, pedal edema, joint swelling, calf tenderness Back exam: Present: normal inspection Neurological exam: Present: alert, oriented X3 Psychiatric exam: Present: normal affect, normal mood Skin exam: Present: warm, dry, intact, normal color. Absent: rash Course Vital Signs 01/20/17 15:34 Temperature 97.3 F L Pulse Rate 103 H Respiratory 18 Rate Blood Pressure 189/79 O2 Sat by Pulse 96 Oximetry Medical Decision Making - Medical Decision Making 76-year-old female presents emergency Department chief complaint of passing stool per vagina. At this time there is no gross stool noted in the vaginal exam however patient is tender and she does have a brown type discharge. Wound culture from the fifth does show this is positive for E. coli. Patient's lab work was reviewed as well as the CAT scan. At this time we'll start patient on Unasyn we will admit the patient and have MULTIPLE RESAW OPERATOR consult at. The patient and family are in agreement with this plan. - Lab Data Result diagrams: 01/20/17 16:03 01/20/17 16:03 Lab Results 01/20/17 01/20/17 01/20/17 Range/Units 16:03 16:03 16:03 WBC 9.0 (3.8-10.6) k/uL RBC 4.84 (3.80-5.40) m/uL Hgb 14.1 (11.4-16.0) gm/dL Hct 43.6 (34.0-46.0) % MCV 90.1 (80.0-100.0) fL MCH 29.1 (25.0-35.0) pg MCHC 32.3 (31.0-37.0) g/dL RDW 14.1 (11.5-15.5) % Plt Count 354 (150-450) k/uL Neutrophils % 88 % Lymphocytes % 7 % Monocytes % 4 % Eosinophils % 0 % Basophils % 0 % Neutrophils # 7.9 H (1.3-7.7) k/uL Lymphocytes # 0.6 L (1.0-4.8) k/uL Monocytes # 0.4 (0-1.0) k/uL Eosinophils # 0.0 (0-0.7) k/uL Basophils # 0.0 (0-0.2) k/uL PT (9.0-12.0) sec INR (<1.2) APTT (22.0-30.0) sec Sodium 138 (137-145) mmol/L Potassium 4.1 (3.5-5.1) mmol/L Chloride 107 (98-107) mmol/L Carbon Dioxide 23 (22-30) mmol/L Anion Gap 8 mmol/L BUN 24 H (7-17) mg/dL Creatinine 0.70 (0.52-1.04) mg/dL Est GFR (MDRD) Af Amer >60 (>60 ml/min/1.73 sqM) Est GFR (MDRD) Non-Af >60 (>60 ml/min/1.73 sqM) Glucose 184 H (74-99) mg/dL Calcium 9.6 (8.4-10.2) mg/dL Total Bilirubin 0.3 (0.2-1.3) mg/dL AST 16 (14-36) U/L ALT 37 (9-52) U/L Alkaline Phosphatase 103 (38-126) U/L Total Protein 6.1 L (6.3-8.2) g/dL Albumin 3.4 L (3.5-5.0) g/dL Blood Type O Negative Blood Type Recheck O Neg Antibody Screen NEGATIVE Spec Expiration Date 01/23/2017 - 230201/20/17 Range/Units 16:03 WBC (3.8-10.6) k/uL RBC (3.80-5.40) m/uL Hgb (11.4-16.0) gm/dL Hct (34.0-46.0) % MCV (80.0-100.0) fL MCH (25.0-35.0) pg MCHC (31.0-37.0) g/dL RDW (11.5-15.5) % Plt Count (150-450) k/uL Neutrophils % % Lymphocytes % % Monocytes % % Eosinophils % % Basophils % % Neutrophils # (1.3-7.7) k/uL Lymphocytes # (1.0-4.8) k/uL Monocytes # (0-1.0) k/uL Eosinophils # (0-0.7) k/uL Basophils # (0-0.2) k/uL PT 10.6 (9.0-12.0) sec INR 1.1 (<1.2) APTT 24.6 (22.0-30.0) sec Sodium (137-145) mmol/L Potassium (3.5-5.1) mmol/L Chloride (98-107) mmol/L Carbon Dioxide (22-30) mmol/L Anion Gap mmol/L BUN (7-17) mg/dL Creatinine (0.52-1.04) mg/dL Est GFR (MDRD) Af Amer (>60 ml/min/1.73 sqM) Est GFR (MDRD) Non-Af (>60 ml/min/1.73 sqM) Glucose (74-99) mg/dL Calcium (8.4-10.2) mg/dL Total Bilirubin (0.2-1.3) mg/dL AST (14-36) U/L ALT (9-52) U/L Alkaline Phosphatase (38-126) U/L Total Protein (6.3-8.2) g/dL Albumin (3.5-5.0) g/dL Blood Type Blood Type Recheck Antibody Screen Spec Expiration Date - Radiology Data Radiology results: report reviewed, image reviewed Disposition Clinical Impression: Vaginitis, Bacterial vaginosis Disposition: ADMITTED IP TO THIS [facility] Condition: Stable Referrals: Alvin Alejandro DO [Primary Care Provider] - 1-2 days Time of Disposition: 18:21 Decision Date: 01/20/17 Decision Time: 18:21
[2017-01-20 16:14] LABS: Basophils % (A) 0 %; CHCM 32.4; Eosinophils % (A) 0 %; HCT 43.6 % (34.0-46.0); HDW 2.56; HGB 14.1 gm/dL (11.4-16.0); Luc # (Auto) 0.11; Luc % (Auto) 1; Lymphocytes # (A) 0.6 k/uL (1.0-4.8); Lymphocytes % (A) 7 %; MCH 29.1 pg (25.0-35.0); MCHC 32.3 g/dL (31.0-37.0); MCV 90.1 fL (80.0-100.0); Mean Platelet Volume 6.3; Monocytes # (A) 0.4 k/uL (0-1.0); Monocytes % (A) 4 %; Neutrophils # (A) 7.9 k/uL (1.3-7.7); Neutrophils % (A) 88 %; RBC 4.84 m/uL (3.80-5.40); RDW 14.1 % (11.5-15.5); WBC (Perox) 8.99
[2017-01-20 16:24] LABS: INR 1.1 (<1.2); Partial Thromboplastin Time 24.6 sec (22.0-30.0); Prothrombin Time 10.6 sec (9.0-12.0)
[2017-01-20 16:26] LABS: ALT 37 U/L (9-52); AST 16 U/L (14-36); Alkaline Phosphatase 103 U/L (38-126); Anion Gap 8 mmol/L; Blood Urea Nitrogen 24 mg/dL (7-17); Calcium 9.6 mg/dL (8.4-10.2); Carbon Dioxide 23 mmol/L (22-30); Chloride 107 mmol/L (98-107); Glucose 184 mg/dL (74-99); Non-African American GFR(MDRD) >60 (>60 ml/min/1.73 sqM); Potassium 4.1 mmol/L (3.5-5.1); Sodium 138 mmol/L (137-145); Total Bilirubin 0.3 mg/dL (0.2-1.3); Total Protein 6.1 g/dL (6.3-8.2)
--- NOTE | 2017-01-20 18:03 | CT ---
EXAMINATION TYPE: CT pelvis w con DATE OF EXAM: 01/20/2017 COMPARISON: 01/17/2017 HISTORY: Vaginal bleeding CT DLP: mGycm Automated exposure control for dose reduction was used. CONTRAST: Multiple axial sections were obtained from the iliac crests to the floor the pelvis with rectal contr ast and intravenous contrast. The IV contrast was Omnipaque 100 mL. FINDINGS: Rectosigmoid colon is unremarkable. I see no wall thickening. There is no evidence of contrast extrav asation. There are few air bubbles in the vagina. Bladder distends smoothly. There is no free fluid i n the pelvis. There is atherosclerotic vascular calcification. There is no sign of pelvic lymphadenop athy. There is a small benign-appearing area of sclerosis in the left iliac bone. IMPRESSION: THERE IS MINIMAL AIR AND TO LESSER EXTENT FLUID IN THE VAGINA THAT IS DECREASED COMPARED TO LAST EXAM . NO EVIDENCE OF A FISTULA. ATHEROSCLEROTIC VASCULAR DISEASE. HYSTERECTOMY NOTED. I do not see convin cing evidence for colitis.
[2017-01-20] MEDS ORDERED: NALOXONE 0.4 MG/ML 1 ML VIAL IV PRN (18:21)
[2017-01-20] MEDS ORDERED: AMPICILLIN-SULBACTAM 3 GM in SODIUM CHLORIDE 0.9% 100 ML IVPB STA (18:21)
[2017-01-20] MEDS ORDERED: ONDANSETRON 4 MG/2 ML VIAL IVP PRN (18:21)
[2017-01-20] MEDS ORDERED: PROCHLORPERAZINE 10 MG TAB PO PRN (18:44)
[2017-01-20] MEDS: SODIUM CHLORIDE 0.9% 1,000 ML IV SCH (19:01)
[2017-01-20] MEDS: DICYCLOMINE 10 MG CAP PO SCH (21:03)
[2017-01-20] MEDS: LOSARTAN 50 MG TAB PO SCH (21:03)
[2017-01-20] MEDS: GABAPENTIN 100 MG CAP PO SCH (21:03)
[2017-01-20] MEDS: ALPRAZolam 0.5 MG TAB PO PRN (21:05)
[2017-01-21] MEDS: AMPICILLIN-SULBACTAM 3 GM in SODIUM CHLORIDE 0.9% 100 ML IVPB SCH ×4 (00:06→23:57)
[2017-01-21] MEDS: SYMBICORT 160-4.5 MCG INHALER INHALATION SCH ×3 (05:58→18:43)
[2017-01-21] MEDS: ALBUTEROL NEBULIZED 2.5 MG/3 ML INHALATION SCH ×2 (05:58→07:50)
[2017-01-21] MEDS: SODIUM CHLORIDE 0.9% 1,000 ML IV SCH ×2 (05:59→16:04)
[2017-01-21 07:37] LABS: ALT 26 U/L (9-52); AST 12 U/L (14-36); Alkaline Phosphatase 63 U/L (38-126); Anion Gap 6 mmol/L; Blood Urea Nitrogen 21 mg/dL (7-17); Calcium 8.8 mg/dL (8.4-10.2); Carbon Dioxide 22 mmol/L (22-30); Chloride 112 mmol/L (98-107); Glucose 89 mg/dL (74-99); Non-African American GFR(MDRD) >60 (>60 ml/min/1.73 sqM); Potassium 4.3 mmol/L (3.5-5.1); Sodium 140 mmol/L (137-145); Total Bilirubin 0.2 mg/dL (0.2-1.3); Total Protein 5.1 g/dL (6.3-8.2)
[2017-01-21 07:43] LABS: Basophils % (A) 0 %; CHCM 32.1; Eosinophils % (A) 0 %; HCT 40.2 % (34.0-46.0); HDW 2.57; HGB 12.9 gm/dL (11.4-16.0); Luc % (Auto) 3; Lymphocytes % (A) 13 %; MCH 29.1 pg (25.0-35.0); MCV 90.9 fL (80.0-100.0); Mean Platelet Volume 6.6; Monocytes # (A) 0.5 k/uL (0-1.0); Monocytes % (A) 8 %; Neutrophils # (A) 5.4 k/uL (1.3-7.7); Neutrophils % (A) 76 %; RBC 4.43 m/uL (3.80-5.40); RDW 14.2 % (11.5-15.5); WBC 7.1 k/uL (3.8-10.6); WBC (Perox) 7.48
[2017-01-21] MEDS ORDERED: IPRATROPIUM 0.5 MG/2.5 ML NEBU INHALATION SCH (08:00)
[2017-01-21] MEDS ORDERED: NON-FORMULARY DRUG (Tiotropium Bromide [Spiriva] 1 CAP) INHALATION SCH (08:00)
[2017-01-21] MEDS ORDERED: NON-FORMULARY DRUG (Omeprazole [Prilosec] 20 MG) PO SCH (09:00)
[2017-01-21] MEDS ORDERED: NON-FORMULARY DRUG (Celecoxib 200 MG) PO SCH (09:00)
[2017-01-21] MEDS: GABAPENTIN 100 MG CAP PO SCH ×2 (10:07→21:12)
[2017-01-21] MEDS: DICYCLOMINE 10 MG CAP PO SCH ×2 (10:07→21:13)
[2017-01-21] MEDS: LOSARTAN 50 MG TAB PO SCH ×2 (10:08→21:13)
[2017-01-21] MEDS: PANTOPRAZOLE 40 MG TABLET PO SCH (10:09)
[2017-01-21] MEDS: MELOXICAM 7.5 MG TAB PO SCH (10:09)
[2017-01-21 10:25] VITALS: BMI 17.6
[2017-01-21] MEDS: IPRATROPIUM-ALBUTEROL 3 ML NEB INHALATION SCH ×2 (12:05→18:43)
--- NOTE | 2017-01-21 13:15 | P.OBCN ---
History of Present Illness Consult date: 01/21/17 Reason for consult: other (rectovaginal fistula) Chief complaint: feces coming out of vagina for one day History of present illness: 76 year old presents to hospital yesterday with stool coming out of her vagina. She has had a one week history of increased vaginal discharge. She was put on antibiotics for what was thought to be colitis. Yesterday this discharged changed to stool and the patient returned to the emergency room and was admitted. Computed tomography scan did not show evidence of fistula. Patient did not tolerate vaginal exam in the emergency room very well at all. She was very uncomfortable. The PA did note stool in the vagina. Review of Systems All systems: negative Constitutional: Denies chills, Denies fever Eyes: denies blurred vision, denies pain Ears, nose, mouth and throat: Denies headache, Denies sore throat Cardiovascular: Denies chest pain, Denies shortness of breath Respiratory: Denies cough Gastrointestinal: Denies abdominal pain, Denies diarrhea, Denies nausea, Denies vomiting Genitourinary: Denies dysuria, Denies hematuria Musculoskeletal: Denies myalgias Integumentary: Denies pruritus, Denies rash Neurological: Denies numbness, Denies weakness Psychiatric: Denies anxiety, Denies depression Endocrine: Denies fatigue, Denies weight change Past Medical History Past Medical History: Asthma, Cancer, COPD, GERD/Reflux, Hypertension, Osteoarthritis (OA) Additional Past Medical History / Comment(s): HTN, heart murmur since 1970s, bronchitis, IBS with diarrhea, osteoarthritis, peptic ulcer, sinusitis, UTI's, breast cancer History of Any Multi-Drug Resistant Organisms: None Reported Past Surgical History: Bladder Surgery, Cholecystectomy, Heart Catheterization, Hysterectomy, Orthopedic Surgery Additional Past Surgical History / Comment(s): 09/21/14 cardiac cath with disease -treated medically, cataracts bilaterally, rt rotator cuff, juan m carpal tunnel, bladder suspension, rectocele repair, hemorrhoidectomy, colonoscopies, camera endoscopy, EGD, left masectomy Past Anesthesia/Blood Transfusion Reactions: No Reported Reaction Additional Past Anesthesia/Blood Transfusion Reaction / Comm: Pt is claustrophobic. Past Psychological History: Anxiety Additional Psychological History / Comment(s): Pt resides at [facility]. She is independent. She uses no assistive device. She drives. She has a nebulizer. She has a little anxiety which she occasionally uses xanax with good results. She is claustrophobic. Smoking Status: Light tobacco smoker Past Alcohol Use History: None Reported Additional Past Alcohol Use History / Comment(s): Pt started smoking in 1960 and is 1 ppd smoker and continues to smoke at least a few cigarettes per day. She denies any marijuana, street drug or alcohol abuse. Past Drug Use History: None Reported - Past Family History Father Family Medical History: COPD Additional Family Medical History / Comment(s): Father is . Mother Family Medical History: CVA/TIA, Hypertension Additional Family Medical History / Comment(s): at age 91 Brother(s) Family Medical History: Cancer, Myocardial Infarction ([place]) Daughter(s) Family Medical History: No Reported History Son(s) Family Medical History: No Reported History Sister(s) Family Medical History: Cancer Medications and Allergies Home Medications Medication Instructions Recorded Confirmed Type Diphenox-Atrop 2.5-0.025 mg 1 tab PO BID PRN 09/17/14 01/20/17 History [Lomotil] Gabapentin [Neurontin] 100 mg PO BID 09/17/14 01/20/17 History ALPRAZolam [Xanax] 1 mg PO TID PRN 06/16/15 01/20/17 History Albuterol Nebulized [Ventolin 2.5 mg INHALATION RT-TID 06/16/15 01/20/17 History Nebulized] Prochlorperazine [Compazine] 10 mg PO TID PRN #30 tab 06/18/15 01/20/17 Rx Losartan Potassium [Cozaar] 50 mg PO HS 03/06/16 01/20/17 History Losartan Potassium [Cozaar] 100 mg PO QAM 03/06/16 01/20/17 History Omeprazole [PriLOSEC] 20 mg PO DAILY 03/06/16 01/20/17 History Celecoxib [CeleBREX] 200 mg PO DAILY 06/20/16 01/20/17 History Budesonide/Formoterol Fumarate 2 puff INHALATION RT-BID 11/12/16 01/20/17 History [Symbicort 160-4.5 Mcg Inhaler] Dicyclomine [Bentyl] 10 mg PO BID 11/12/16 01/20/17 History Tiotropium [place] [Spiriva] 1 cap INHALATION RT-DAILY 11/12/16 01/20/17 History Ciprofloxacin HCl [Cipro] 500 mg PO Q12HR #14 tablet 01/17/17 01/20/17 Rx metroNIDAZOLE [Flagyl] 500 mg PO TID #21 tab 01/17/17 01/20/17 Rx Allergies Allergy/AdvReac Type Severity Reaction Status Date / Time aspirin AdvReac Nausea Verified 01/20/17 15:55 codeine AdvReac Nausea Verified 01/20/17 15:55 Iodinated Contrast- Oral and AdvReac Vomiting Verified 01/20/17 15:55 IV Dye [Iodinated Contrast Media - IV Dye] Exam Osteopathic Statement: *. No significant issues noted on an osteopathic structural exam other than those noted in the History and Physical/Consult. - Vital Signs Vital signs: Vital Signs Temp Pulse Pulse Resp BP BP Pulse Ox 01/21/17 12:22 56 L 01/21/17 12:06 56 L 01/21/17 11:23 16 01/21/17 08:01 55 L 01/21/17 07:51 53 L 01/21/17 07:00 96.7 F L 73 16 154/67 97 01/21/17 03:24 97.5 F L 59 L 16 131/65 95 01/20/17 19:50 98 F 71 18 157/77 94 L 01/20/17 18:52 98.9 F 76 19 150/83 94 L 01/20/17 15:34 97.3 F L 103 H 18 189/79 96 Intake and Output 01/20/17 01/21/17 01/21/17 22:59 06:59 14:59 Intake Total 200 900 Output Total 250 Balance 200 900 -250 Intake: Intake, IV Titration 200 900 Amount Ampicillin-Sulbactam 3 gm 100 In Sodium Chloride 0.9% 100 ml @ 100 mls/hr IVPB Q8HR [facility] Rx#:[id number] Sodium Chloride 0.9% 1, 200 800 000 ml @ 100 mls/hr IV . Q10H [facility] Rx#:[id number] Output: Urine 250 Other: Voiding Method Toilet Toilet # Voids 1 1 1 Weight 40.823 kg 40.823 kg Patient Weight 01/22/17 06:59 Weight 40.823 kg Heart: Regular rate and rhythm Lungs: Clear to auscultation bilaterally Abdomen: Soft, nontender Extremities: Negative Homans sign buttocks-erythematous Results Result Diagrams: 01/21/17 06:59 01/21/17 06:59 Abnormal Lab Results - Last 24 Hours (Table) 01/20/17 01/20/17 01/21/17 Range/Units 16:03 16:03 06:59 Neutrophils # 7.9 H (1.3-7.7) k/uL Lymphocytes # 0.6 L (1.0-4.8) k/uL Chloride 112 H (98-107) mmol/L BUN 24 H 21 H (7-17) mg/dL Glucose 184 H (74-99) mg/dL AST 12 L (14-36) U/L Total Protein 6.1 L 5.1 L (6.3-8.2) g/dL Albumin 3.4 L 2.6 L (3.5-5.0) g/dL Assessment and Plan (1) Rectovaginal fistula Status: Acute Plan: 1. I had a Long discussion with the patient and her daughter. Rectovaginal fistula is a very specialized and difficult surgery. This procedure should be performed by someone who has done this procedure several times and is familiar with the procedure. I would really advise that this patient be transferred to a tertiary facility like [facility] where they have performed this procedure with success. 2. In the meantime, she is suffering with what appears to be a diaper rash. I' m recommending some barrier cream for her to help with comfort.
--- NOTE | 2017-01-21 13:50 | P.HPIM ---
History of Present Illness H&P Date: 01/21/17 Chief Complaint: Rectovaginal fistula This is a 76-year-old female one of Dr. Alejandro with a previous medical history significant for coronary artery disease status post left heart catheterization with the left heart catheterization that was done in September 2014 that showed ostial lesion of the diagonal branch and mild disease of the RCA, normal ejection fraction, hypertension and hypertensive cardiovascular disease with left ventricular hypertrophy, chronic tobacco use and dependence with chronic obstructive pulmonary disease, GERD, patient was in her usual state of health until a week ago Saturday when she went to see Dr. Alejandro and she felt that she is having urinary tract infection had a urinalysis that was orange in color at that time she was given oral antibiotic and she was sent home , patient returned to the office with similar complaint of suprapubic abdominal pain that appeared to be deep pain associated with the poor appetite without any fever or chills she was sent by Dr. Alejandro to the ER to have computed tomography scan for possible fistula, patient stated that she was doing fine that she came to the ER and she was seen by the physician education assistant and had a pelvic examination that showed some stool in rectum, patient went home and she woke up in the morning she went to the bathroom. Yesterday in the morning and she had an orange color urine with significant creamy thick discharge from the vaginal and after she was wiping herself she saw stool material coming out so she ended up coming back to the ER yesterday she was admitted to the hospital for evaluation patient was seen in consultation by FINAL DR[employer] C[employer]TER Dr. Barnhart who recommended for the patient to be transferred to a tertiary care center because of possible rectovaginal fistula. Review of Systems Constitutional: Reports weakness, Reports weight loss, Denies anorexia, Denies chills, Denies chronic headaches, Denies lethargy, Denies malaise Eyes: denies blurred vision, denies bulging eye, denies decreased vision, denies diplopia, denies discharge, denies dry eye Ears: deny: decreased hearing Ears, nose, mouth and throat: Denies dysphagia, Denies neck lump, Denies swelling in throat, Denies sore throat Cardiovascular: Reports decreased exercise tolerance, Reports dyspnea on exertion, Reports shortness of breath, Denies chest pain, Denies phlebitis, Denies rapid heart beat, Denies syncope Respiratory: Reports cough, Reports cough with sputum, Reports home oxygen, Reports wheezing, Denies congestion, Denies sleep apnea, Denies snoring Gastrointestinal: Reports abdominal pain, Reports bloating, Denies BRBPR, Denies change in bowel habits, Denies constipation, Denies early satiety, Denies heartburn, Denies hematemesis, Denies lactose intolerance, Denies loss of appetite, Denies melena, Denies nausea, Denies vomiting Genitourinary: Reports abnormal vaginal bleeding, Reports pelvic pain, Reports urinary frequency, Reports vaginal discharge Menstruation: Reports postmenopausal Musculoskeletal: Denies myalgias Musculoskeletal: absent: ankle pain, ankle stiffness, ankle swelling, elbow pain , elbow stiffness, elbow swelling, foot pain, foot stiffness, foot swelling, hand pain, hand stiffness, hand swelling, hip pain, hip stiffness, hip swelling , knee pain, knee stiffness, knee swelling, shoulder pain, shoulder stiffness, shoulder swelling, wrist pain, wrist stiffness, wrist swelling Integumentary: Denies pruritus, Denies rash Neurological: Denies numbness, Denies weakness Psychiatric: Denies anxiety, Denies depression Endocrine: Denies fatigue, Denies weight change Past Medical History Past Medical History: Asthma, Cancer, COPD, GERD/Reflux, Hypertension, Osteoarthritis (OA) Additional Past Medical History / Comment(s): HTN, heart murmur since 1970s, bronchitis, IBS with diarrhea, osteoarthritis, peptic ulcer, sinusitis, UTI's, breast cancer History of Any Multi-Drug Resistant Organisms: None Reported Past Surgical History: Bladder Surgery, Cholecystectomy, Heart Catheterization, Hysterectomy, Orthopedic Surgery Additional Past Surgical History / Comment(s): 09/21/14 cardiac cath with disease -treated medically, cataracts bilaterally, rt rotator cuff, juan m carpal tunnel, bladder suspension, rectocele repair, hemorrhoidectomy, colonoscopies, camera endoscopy, EGD, left masectomy Past Anesthesia/Blood Transfusion Reactions: No Reported Reaction Additional Past Anesthesia/Blood Transfusion Reaction / Comment(s): Pt is claustrophobic. Past Psychological History: Anxiety Additional Psychological History / Comment(s): Pt resides at [facility]. She is independent. She uses no assistive device. She drives. She has a nebulizer. She has a little anxiety which she occasionally uses xanax with good results. She is claustrophobic. Smoking Status: Light tobacco smoker Past Alcohol Use History: None Reported Additional Past Alcohol Use History / Comment(s): Pt started smoking in 1961 and is 1 ppd smoker and continues to smoke at least a few cigarettes per day. She denies any marijuana, street drug or alcohol abuse. Past Drug Use History: None Reported - Past Family History Father Family Medical History: COPD Additional Family Medical History / Comment(s): Father is . Mother Family Medical History: CVA/TIA, Hypertension Additional Family Medical History / Comment(s): at age 91 Brother(s) Family Medical History: Cancer, Myocardial Infarction ([place]) Daughter(s) Family Medical History: No Reported History Son(s) Family Medical History: No Reported History Sister(s) Family Medical History: Cancer Medications and Allergies Home Medications Medication Instructions Recorded Confirmed Type Diphenox-Atrop 2.5-0.025 mg 1 tab PO BID PRN 09/17/14 01/20/17 History [Lomotil] Gabapentin [Neurontin] 100 mg PO BID 09/17/14 01/20/17 History ALPRAZolam [Xanax] 1 mg PO TID PRN 06/16/15 01/20/17 History Albuterol Nebulized [Ventolin 2.5 mg INHALATION RT-TID 06/16/15 01/20/17 History Nebulized] Prochlorperazine [Compazine] 10 mg PO TID PRN #30 tab 06/18/15 01/20/17 Rx Losartan Potassium [Cozaar] 50 mg PO HS 03/06/16 01/20/17 History Losartan Potassium [Cozaar] 100 mg PO QAM 03/06/16 01/20/17 History Omeprazole [PriLOSEC] 20 mg PO DAILY 03/06/16 01/20/17 History Celecoxib [CeleBREX] 200 mg PO DAILY 06/20/16 01/20/17 History Budesonide/Formoterol Fumarate 2 puff INHALATION RT-BID 11/12/16 01/20/17 History [Symbicort 160-4.5 Mcg Inhaler] Dicyclomine [Bentyl] 10 mg PO BID 11/12/16 01/20/17 History Tiotropium [place] [Spiriva] 1 cap INHALATION RT-DAILY 11/12/16 01/20/17 History Ciprofloxacin HCl [Cipro] 500 mg PO Q12HR #14 tablet 01/17/17 01/20/17 Rx metroNIDAZOLE [Flagyl] 500 mg PO TID #21 tab 01/17/17 01/20/17 Rx Allergies Allergy/AdvReac Type Severity Reaction Status Date / Time aspirin AdvReac Nausea Verified 01/20/17 15:55 codeine AdvReac Nausea Verified 01/20/17 15:55 Iodinated Contrast- Oral and AdvReac Vomiting Verified 01/20/17 15:55 IV Dye [Iodinated Contrast Media - IV Dye] Physical Exam Vitals: Vital Signs Temp Pulse Pulse Resp BP BP Pulse Ox 01/21/17 12:22 56 L 01/21/17 12:06 56 L 01/21/17 11:23 16 01/21/17 08:01 55 L 01/21/17 07:51 53 L 01/21/17 07:00 96.7 F L 73 16 154/67 97 01/21/17 03:24 97.5 F L 59 L 16 131/65 95 01/20/17 19:50 98 F 71 18 157/77 94 L 01/20/17 18:52 98.9 F 76 19 150/83 94 L 01/20/17 15:34 97.3 F L 103 H 18 189/79 96 Intake and Output 01/20/17 01/21/17 01/21/17 22:59 06:59 14:59 Intake Total 200 900 Output Total 250 Balance 200 900 -250 Intake: Intake, IV Titration 200 900 Amount Ampicillin-Sulbactam 3 gm 100 In Sodium Chloride 0.9% 100 ml @ 100 mls/hr IVPB Q8HR [facility] Rx#:[id number] Sodium Chloride 0.9% 1, 200 800 000 ml @ 100 mls/hr IV . Q10H [facility] Rx#:[id number] Output: Urine 250 Other: Voiding Method Toilet Toilet # Voids 1 1 1 Weight 40.823 kg 40.823 kg Patient Weight 01/22/17 06:59 Weight 40.823 kg - Constitutional General appearance: no acute distress, thin - EENT Eyes: anicteric sclerae, EOMI, PERRLA, no ptosis, no scleral icterus, normal appearance ENT: hearing grossly normal, normal oropharynx, no thrush Ears: bilateral: normal - Neck Neck: no lymphadenopathy, normal ROM, no rigidity, no stridor Carotids: bilateral: upstroke delayed Thyroid: bilateral: normal size - Respiratory Respiratory: bilateral: diminished, rhonchi, wheezing, prolonged expiration, negative: dullness, rales - Cardiovascular Rhythm: regular Heart sounds: normal: S1, S2 Abnormal Heart Sounds: systolic murmur, no S3 Gallop, no S4 Gallop, no click - Gastrointestinal General gastrointestinal: normal bowel sounds, soft, no splenomegaly, no tenderness, no umbilical hernia, no ventral hernia - Integumentary Integumentary: normal, normal turgor - Neurologic Neurologic: CNII-XII intact - Musculoskeletal Musculoskeletal: strength equal bilaterally - Psychiatric Psychiatric: A&O x's 3, appropriate affect, intact judgment & insight Results CBC & Chem 7: 01/21/17 06:59 01/21/17 06:59 Labs: Abnormal Lab Results - Last 24 Hours (Table) 01/20/17 01/20/17 01/21/17 Range/Units 16:03 16:03 06:59 Neutrophils # 7.9 H (1.3-7.7) k/uL Lymphocytes # 0.6 L (1.0-4.8) k/uL Chloride 112 H (98-107) mmol/L BUN 24 H 21 H (7-17) mg/dL Glucose 184 H (74-99) mg/dL AST 12 L (14-36) U/L Total Protein 6.1 L 5.1 L (6.3-8.2) g/dL Albumin 3.4 L 2.6 L (3.5-5.0) g/dL Thrombosis Risk Factor Assmnt - DVT/VTE Prophylaxis DVT/VTE Prophylaxis: Pharmacologic Prophylaxis ordered, Mechanical Prophylaxis ordered - Choose All That Apply Any of the Below Risk Factors Present?: No Other Risk Factors: Yes Each Risk Factor Represents 3 Points: Age 75 years or older Thrombosis Risk Factor Assessment Total Risk Factor Score: 3 Thrombosis Risk Factor Assessment Level: Moderate Risk Assessment and Plan Plan: Assessment and plan: 1. Possible recto- vagina fistula patient was seen in consultation by FINAL [employer]ESSING CUTTER and he was recommended for the patient to be evaluated by a tertiary care center such as in [facility], meanwhile we will continue the patient on Unasyn 3 g IV piggyback every 8 hours, await surgical input and life the patient will need to be transferred to a different institution. 2. History of coronary artery disease . Stable at this time. 3. Hypertension and hypertensive cardiovascular disease. Continue losartan 100 mg in the morning and 50 mg in the evening . 4. Hyperlipidemia. Low-cholesterol diet. 5. GERD. Continue current Protonix 40 mg orally once every day. 6. Osteoarthritis. Continue meloxicam 15 mg orally once every day. 7. COPD. continue patient on DuoNeb 3 mL nebulization 4 times every day, oxygen support, continue patient also on Symbicort 160/4.5 g 2 puffs inhalation twice every day, Spiriva 1 inhalation once every day. 8. Tobacco use and dependence. Smoking cessation and counseling. 9. Osteoporosis. Stable. 10. DVT prophylaxis. Start Lovenox 40 mg subcutaneously every 24 hours. 11. GI prophylaxis. On Protonix 40 mg orally once every day. 12. Inpatient. Estimated length of stay 2 days. 13. Full code.
--- NOTE | 2017-01-21 17:18 | P.GSCN ---
History of Present Illness Consult date: 01/21/17 Reason for Consult: Enterovaginal fistula History of present illness: Patient presents to the hospital complaining of stool-like material spontaneously draining from the vagina. She said that starting approximately 1- 2 weeks ago she noticed a cloudy material that was thought to be a vaginal discharge. She was started on antibiotics several days ago with initially some improvement however yesterday when she woke up from sleep she had more stool- appearing discharge. She was hospitalized approximately 2 months ago for lower abdominal pain and a CAT scan showed inflammatory changes involving the sigmoid colon suspicious for a longer segment diverticulitis or colitis. She had a colonoscopy by gastroenterology in June of this year which only showed diverticulosis. She has had a history of irritable bowel syndrome. She has had frequent episodes of diarrhea over the years. Denies pneumaturia. No similar events in the past. Over the last 6 weeks or so she says she has had some rectal pressure when seated. She had a speculum evaluation in the ER yesterday. The fistulous opening was not identified. She was evaluated by gynecology this afternoon and further evaluation was withheld given the opinion that this fistula be dealt with at a tertiary care center. There is some question of a previous rectocele repair. This was not recent. She is afebrile. Her white blood cell count was normal. A CAT scan of the pelvis was performed which showed some air in the vagina without discrete fistula identified. Very subtle inflammatory changes felt to be present in the distal sigmoid colon. Review of Systems The patient denies any acute changes in vision or hearing, no dysphagia or odynophagia, no chest pain or shortness of breath, no dysuria or hematuria, no headache, no runny nose, no rectal bleeding or melena, no unexplained weight loss Past Medical History Past Medical History: Asthma, Cancer, COPD, GERD/Reflux, Hypertension, Osteoarthritis (OA) Additional Past Medical History / Comment(s): HTN, heart murmur since 1970s, bronchitis, IBS with diarrhea, osteoarthritis, peptic ulcer, sinusitis, UTI's, breast cancer History of Any Multi-Drug Resistant Organisms: None Reported Past Surgical History: Bladder Surgery, Cholecystectomy, Heart Catheterization, Hysterectomy, Orthopedic Surgery Additional Past Surgical History / Comment(s): 09/21/14 cardiac cath with disease -treated medically, cataracts bilaterally, rt rotator cuff, juan m carpal tunnel, bladder suspension, rectocele repair, hemorrhoidectomy, colonoscopies, camera endoscopy, EGD, left masectomy Past Anesthesia/Blood Transfusion Reactions: No Reported Reaction Additional Past Anesthesia/Blood Transfusion Reaction / Comm: Pt is claustrophobic. Past Psychological History: Anxiety Additional Psychological History / Comment(s): Pt resides at [facility]. She is independent. She uses no assistive device. She drives. She has a nebulizer. She has a little anxiety which she occasionally uses xanax with good results. She is claustrophobic. Smoking Status: Light tobacco smoker Past Alcohol Use History: None Reported Additional Past Alcohol Use History / Comment(s): Pt started smoking in 1960 and is 1 ppd smoker and continues to smoke at least a few cigarettes per day. She denies any marijuana, street drug or alcohol abuse. Past Drug Use History: None Reported - Past Family History Father Family Medical History: COPD Additional Family Medical History / Comment(s): Father is . Mother Family Medical History: CVA/TIA, Hypertension Additional Family Medical History / Comment(s): at age 91 Brother(s) Family Medical History: Cancer, Myocardial Infarction ([place]) Daughter(s) Family Medical History: No Reported History Son(s) Family Medical History: No Reported History Sister(s) Family Medical History: Cancer Medications and Allergies Home Medications Medication Instructions Recorded Confirmed Type Diphenox-Atrop 2.5-0.025 mg 1 tab PO BID PRN 09/17/14 01/20/17 History [Lomotil] Gabapentin [Neurontin] 100 mg PO BID 09/17/14 01/20/17 History ALPRAZolam [Xanax] 1 mg PO TID PRN 06/16/15 01/20/17 History Albuterol Nebulized [Ventolin 2.5 mg INHALATION RT-TID 06/16/15 01/20/17 History Nebulized] Prochlorperazine [Compazine] 10 mg PO TID PRN #30 tab 06/18/15 01/20/17 Rx Losartan Potassium [Cozaar] 50 mg PO HS 03/06/16 01/20/17 History Losartan Potassium [Cozaar] 100 mg PO QAM 03/06/16 01/20/17 History Omeprazole [PriLOSEC] 20 mg PO DAILY 03/06/16 01/20/17 History Celecoxib [CeleBREX] 200 mg PO DAILY 06/20/16 01/20/17 History Budesonide/Formoterol Fumarate 2 puff INHALATION RT-BID 11/12/16 01/20/17 History [Symbicort 160-4.5 Mcg Inhaler] Dicyclomine [Bentyl] 10 mg PO BID 11/12/16 01/20/17 History Tiotropium [place] [Spiriva] 1 cap INHALATION RT-DAILY 11/12/16 01/20/17 History Ciprofloxacin HCl [Cipro] 500 mg PO Q12HR #14 tablet 01/17/17 01/20/17 Rx metroNIDAZOLE [Flagyl] 500 mg PO TID #21 tab 01/17/17 01/20/17 Rx Allergies Allergy/AdvReac Type Severity Reaction Status Date / Time aspirin AdvReac Nausea Verified 01/20/17 15:55 codeine AdvReac Nausea Verified 01/20/17 15:55 Iodinated Contrast- Oral and AdvReac Vomiting Verified 01/20/17 15:55 IV Dye [Iodinated Contrast Media - IV Dye] Surgical - Exam Vital Signs Temp Pulse Resp BP Pulse Ox 97.3 F L 103 H 18 189/79 96 01/20/17 15:34 01/20/17 15:34 01/20/17 15:34 01/20/17 15:34 01/20/17 15:34 Physical exam: General: Well-developed, somewhat malnourished appearing HEENT: Normocephalic, sclerae nonicteric Abdomen: Nontender, nondistended Extremities: No edema Neuro: Alert and oriented Results - Labs 01/21/17 06:59 01/21/17 06:59 Abnormal Lab Results - Last 24 Hours (Table) 01/21/17 Range/Units 06:59 Chloride 112 H (98-107) mmol/L BUN 21 H (7-17) mg/dL AST 12 L (14-36) U/L Total Protein 5.1 L (6.3-8.2) g/dL Albumin 2.6 L (3.5-5.0) g/dL Diabetes panel 01/21/17 Range/Units 06:59 Sodium 140 (137-145) mmol/L Potassium 4.3 (3.5-5.1) mmol/L Chloride 112 H (98-107) mmol/L Carbon Dioxide 22 (22-30) mmol/L BUN 21 H (7-17) mg/dL Creatinine 0.61 (0.52-1.04) mg/dL Glucose 89 (74-99) mg/dL Calcium 8.8 (8.4-10.2) mg/dL AST 12 L (14-36) U/L ALT 26 (9-52) U/L Alkaline Phosphatase 63 (38-126) U/L Total Protein 5.1 L (6.3-8.2) g/dL Albumin 2.6 L (3.5-5.0) g/dL Calcium panel 01/21/17 Range/Units 06:59 Calcium 8.8 (8.4-10.2) mg/dL Albumin 2.6 L (3.5-5.0) g/dL Pituitary panel 01/21/17 Range/Units 06:59 Sodium 140 (137-145) mmol/L Potassium 4.3 (3.5-5.1) mmol/L Chloride 112 H (98-107) mmol/L Carbon Dioxide 22 (22-30) mmol/L BUN 21 H (7-17) mg/dL Creatinine 0.61 (0.52-1.04) mg/dL Glucose 89 (74-99) mg/dL Calcium 8.8 (8.4-10.2) mg/dL Adrenal panel 01/21/17 Range/Units 06:59 Sodium 140 (137-145) mmol/L Potassium 4.3 (3.5-5.1) mmol/L Chloride 112 H (98-107) mmol/L Carbon Dioxide 22 (22-30) mmol/L BUN 21 H (7-17) mg/dL Creatinine 0.61 (0.52-1.04) mg/dL Glucose 89 (74-99) mg/dL Calcium 8.8 (8.4-10.2) mg/dL Total Bilirubin 0.2 (0.2-1.3) mg/dL AST 12 L (14-36) U/L ALT 26 (9-52) U/L Alkaline Phosphatase 63 (38-126) U/L Total Protein 5.1 L (6.3-8.2) g/dL Albumin 2.6 L (3.5-5.0) g/dL Assessment and Plan (1) Enterovaginal fistula Narrative/Plan: Etiology of the patient's fistulas likely diverticular in origin. This is most likely occurring at the vaginal cuff. It is possible however the fistula is more distal than that however. Tertiary care evaluation with colorectal surgery and [employer]/ONC is likely the best option for this patient. Continue antibiotics for now. Clinical scenario discussed in detail with the patient and her family. Status: Acute
[2017-01-21] MEDS: ALPRAZolam 0.5 MG TAB PO PRN (21:14)
[2017-01-22] MEDS: SODIUM CHLORIDE 0.9% 1,000 ML IV SCH ×3 (02:43→22:59)
[2017-01-22] MEDS: ACETAMINOPHEN TAB 325 MG TAB PO PRN (08:30)
[2017-01-22] MEDS: LOSARTAN 50 MG TAB PO SCH ×2 (08:31→21:05)
--- NOTE | 2017-01-22 08:31 | P.DS ---
Providers Date of admission: 01/20/17 18:45 Expected date of discharge: 01/23/17 Attending physician: Daren España Consults: 01/20/17 19:06 Consult Physician Routine Consulting Provider: Angel Burgos Consult Reason/Comments: R/O fistula Do you want consulting provider notified?: Yes 01/21/17 10:30 Consult Physician Routine Consulting Provider: Soni Marquez Consult Reason/Comments: vaginal fistula Do you want consulting provider notified?: Yes Primary care physician: Alvin Alejandro [facility] Course: This is a 76-year-old female one of Dr. Alejandro with a previous medical history significant for coronary artery disease status post left heart catheterization with the left heart catheterization that was done in September 2014 that showed ostial lesion of the diagonal branch and mild disease of the RCA, normal ejection fraction, hypertension and hypertensive cardiovascular disease with left ventricular hypertrophy, chronic tobacco use and dependence with chronic obstructive pulmonary disease, GERD, patient was in her usual state of health until a week ago Saturday when she went to see Dr. Alejandro and she felt that she is having urinary tract infection had a urinalysis that was orange in color at that time she was given oral antibiotic and she was sent home , patient returned to the office with similar complaint of suprapubic abdominal pain that appeared to be deep pain associated with the poor appetite without any fever or chills she was sent by Dr. Alejandro to the ER to have computed tomography scan for possible fistula, patient stated that she was doing fine that she came to the ER and she was seen by the physician fleet assistant and had a pelvic examination that showed some stool in rectum, patient went home and she woke up in the morning she went to the bathroom. Yesterday in the morning and she had an orange color urine with significant creamy thick discharge from the vaginal and after she was wiping herself she saw stool material coming out so she ended up coming back to the ER yesterday she was admitted to the hospital for evaluation patient was seen in consultation by PAPER MACHINE TENDER Dr. Barnhart who recommended for the patient to be transferred to a tertiary care center because of possible rectovaginal fistula. 01/22: Made contact with [facility] regarding transfer which was denied by the surgeon. We have added and consults for cardiology and pulmonary medicine to clear the patient for eventual surgery and then she will be discharged home on antibiotics with planned follow-up with either [facility] or [facility]. Family is wavering between the 2 places and once they have decided, case management is trying to make an appointment for them for follow-up. Dr. Burgos has ordered a low fiber diet. 01/23: Patient is tolerating a diet. ict account manager to set up an appointment with the patient to follow-up with a surgeon at [facility]. Patient will be discharged on ciprofloxacin and Flagyl for another 10 days. Patient is being discharged in stable condition today. Nursing states that they have seen last stool when she urinates. Discharge diagnoses: 1. Recto- vagina fistula patient was seen in consultation by PAPER MACHINE TENDER and general surgery and he was recommended for the patient to be evaluated by a tertiary care center 2. History of coronary artery disease . Stable at this time. 3. Hypertension and hypertensive cardiovascular disease. 4. Hyperlipidemia. 5. GERD. 6. Osteoarthritis, generalized. 7. COPD without exacerbation. 8. Tobacco use and dependence. Smoking cessation and counseling. 9. Osteoporosis. Stable. 10. Severe protein calorie malnutrition with BMI of 17 Impression and plan of care have been directed as dictated by the signing physician. Keren Daniels nurse practitioner acting as scribe for signing physician. Cc: Dr. Alvin Alejandro Patient Condition at Discharge: Stable Plan - Discharge Summary New Discharge Prescriptions: Continue Diphenox-Atrop 2.5-0.025 mg [Lomotil] 1 tab PO BID PRN PRN Reason: Diarrhea Gabapentin [Neurontin] 100 mg PO BID ALPRAZolam [Xanax] 1 mg PO TID PRN PRN Reason: Anxiety Albuterol Nebulized [Ventolin Nebulized] 2.5 mg INHALATION RT-TID Prochlorperazine [Compazine] 10 mg PO TID PRN #30 tab PRN Reason: Nausea Omeprazole [PriLOSEC] 20 mg PO DAILY Losartan Potassium [Cozaar] 100 mg PO QAM Losartan Potassium [Cozaar] 50 mg PO HS Celecoxib [CeleBREX] 200 mg PO DAILY Budesonide/Formoterol Fumarate [Symbicort 160-4.5 Mcg Inhaler] 2 puff INHALATION RT-BID Dicyclomine [Bentyl] 10 mg PO BID Tiotropium [place] [Spiriva] 1 cap INHALATION RT-DAILY Ciprofloxacin HCl [Cipro] 500 mg PO Q12HR #20 tablet metroNIDAZOLE [Flagyl] 500 mg PO TID #30 tab Discharge Medication List Diphenox-Atrop 2.5-0.025 mg [Lomotil] 1 tab PO BID PRN 09/17/14 [History] Gabapentin [Neurontin] 100 mg PO BID 09/17/14 [History] ALPRAZolam [Xanax] 1 mg PO TID PRN 06/16/15 [History] Albuterol Nebulized [Ventolin Nebulized] 2.5 mg INHALATION RT-TID 06/16/15 [ History] Prochlorperazine [Compazine] 10 mg PO TID PRN #30 tab 06/18/15 [Rx] Losartan Potassium [Cozaar] 50 mg PO HS 03/06/16 [History] Losartan Potassium [Cozaar] 100 mg PO QAM 03/06/16 [History] Omeprazole [PriLOSEC] 20 mg PO DAILY 03/06/16 [History] Celecoxib [CeleBREX] 200 mg PO DAILY 06/20/16 [History] Budesonide/Formoterol Fumarate [Symbicort 160-4.5 Mcg Inhaler] 2 puff INHALATION RT-BID 11/12/16 [History] Dicyclomine [Bentyl] 10 mg PO BID 11/12/16 [History] Tiotropium [place] [Spiriva] 1 cap INHALATION RT-DAILY 11/12/16 [History] Ciprofloxacin HCl [Cipro] 500 mg PO Q12HR #20 tablet 01/23/17 [Rx] metroNIDAZOLE [Flagyl] 500 mg PO TID #30 tab 01/23/17 [Rx] Follow up Appointment(s)/Referral(s): Alvin Alejandro DO [Primary Care Provider] - 1 Week Activity/Diet/Wound Care/Special Instructions: Dr Orourke at [facility] [place], [place] [id number] Jan 29 10:45am CALL FOR FEVER, CHILLS, WORSENING SYMPTOMS OR CONCERNS Discharge Disposition: HOME SELF-CARE
[2017-01-22] MEDS: GABAPENTIN 100 MG CAP PO SCH ×2 (08:32→21:05)
[2017-01-22] MEDS: DICYCLOMINE 10 MG CAP PO SCH ×2 (08:32→21:05)
[2017-01-22] MEDS: PANTOPRAZOLE 40 MG TABLET PO SCH (08:33)
[2017-01-22] MEDS: MELOXICAM 7.5 MG TAB PO SCH (08:33)
[2017-01-22] MEDS: IPRATROPIUM-ALBUTEROL 3 ML NEB INHALATION SCH ×3 (09:11→20:44)
[2017-01-22] MEDS: SYMBICORT 160-4.5 MCG INHALER INHALATION SCH ×2 (09:11→20:44)
[2017-01-22] MEDS: AMPICILLIN-SULBACTAM 3 GM in SODIUM CHLORIDE 0.9% 100 ML IVPB SCH ×2 (09:29→16:39)
--- NOTE | 2017-01-22 15:37 | P.PN ---
Subjective Progress Note Date: 01/22/17 Principal diagnosis: Enterovaginal fistula Patient without new complaints. No significant pain. She is afebrile. Transfer to [facility] was held and outpatient evaluation was suggested. Objective - Vital Signs Vital signs: Vital Signs Temp 97.3 F L 01/22/17 12:00 Pulse 64 01/22/17 14:24 Resp 16 01/22/17 12:00 BP 159/85 01/22/17 12:00 Pulse Ox 94 L 01/22/17 12:00 Intake & Output 01/21/17 01/22/17 01/22/17 18:59 06:59 18:59 Intake Total 200 Output Total 800 1450 1200 Balance -800 -1250 -1200 Weight 40.823 kg Intake: Oral 200 Output: Urine 800 1450 1200 Other: Voiding Method Toilet Toilet Toilet # Voids 1 2 - Exam Abdomen: Mild lower quadrant tenderness, no rebound or guarding - Labs CBC & Chem 7: 01/21/17 06:59 01/21/17 06:59 Assessment and Plan (1) Enterovaginal fistula Narrative/Plan: Continue antibiotics. Begin low fiber diet. Agree with plans for outpatient colorectal surgery evaluation and possible Gear Repair Supervisor/onc evaluation. Status: Acute
[2017-01-22] MEDS: ALPRAZolam 0.5 MG TAB PO PRN ×2 (16:39→21:10)
--- NOTE | 2017-01-22 21:13 | CONS ---
CONSULTATION ATTENDING: Dr. Alejandro and Dr. España. Mrs. Valencia is a 76-year-old female who was admitted to the hospital with a diagnosis of enterovaginal fistula. She has been evaluated to undergo surgical intervention in a tertiary care facility. Consultation was requested for preoperative evaluation. The patient was last seen in our office in September 2015. At that time, she has been stable since her last visit to our office. She has done well from the cardiac standpoint with stable breathing pattern and no symptoms to suggest angina pectoris. No congestive heart failure. She underwent cardiac catheterization in September of 2014 and at that time had mild to moderate disease in the ostial 1st diagonal branch. Otherwise, her left ventricular systolic function was normal. She has not felt any change in her breathing pattern. Her left ventricular systolic function by echocardiography was normal in the past. Her coronary risk factors are remarkable for hypertension, hyperlipidemia as well as a history of smoking. MEDICATIONS: At the time of admission include: 1. Flagyl. 2. Spiriva. 3. Compazine. 4. Cozaar 100 mg daily. 5. Neurontin. 6. Bentyl. 7. Cipro. 8. Celebrex. 9. Symbicort. 10.Ventolin and. 11.Xanax. REVIEW OF SYSTEMS: RESPIRATORY: She has no recent wheezing or cough. She has a history of chronic tobacco use. GI: She has the abdominal pain and bloating. She had no clear bleeding. : She has abnormal vaginal bleeding as well as the discharge. NERVOUS: She has no prior history of stroke or seizure. PAST SURGERIES: Remarkable for cholecystectomy, bladder surgery, hysterectomy, cataract surgery, rotator cuff surgery, carpal tunnel surgery, bladder suspension, rectocele repair, hemorrhoidectomy and a mastectomy. PHYSICAL EXAMINATION: She is a 76-year-old female; alert, oriented, in no apparent distress. Blood pressure running in the 130s to 150s with a heart rate in the 70s. HEAD: Normocephalic. EYES: Sclerae anicteric. NECK: Good carotid upstroke. No bruits. No jugular venous distention. LUNGS: Clear to auscultation. HEART: Regular rhythm. S1, S2. No S3 with a systolic murmur heard at the base. No diastolic murmur. No rub. ABDOMEN: Soft. Mild tenderness. EXTREMITIES: No edema. LAB DATA: BUN and creatinine 21 and 0.6, potassium 4.3. Hemoglobin of 12.9. IMPRESSION: 1. Enterovaginal fistula. The patient is being evaluated for surgical intervention at a tertiary center. 2. Mild coronary artery disease by cardiac catheterization in 2014, asymptomatic. 3. Hypertension. 4. Hyperlipidemia. 5. Chronic tobacco use. RECOMMENDATION: From the cardiac standpoint, the patient is stable. She has no evidence of active ischemic disease and she is stable to proceed with surgical intervention as clinically indicated. Thank you for this consult. Will follow with you. MMODL / IJN: [id number] /
[2017-01-23] MEDS: AMPICILLIN-SULBACTAM 3 GM in SODIUM CHLORIDE 0.9% 100 ML IVPB SCH ×2 (00:09→08:02)
[2017-01-23] MEDS: GABAPENTIN 100 MG CAP PO SCH (08:02)
[2017-01-23] MEDS: DICYCLOMINE 10 MG CAP PO SCH (08:02)
[2017-01-23] MEDS: PANTOPRAZOLE 40 MG TABLET PO SCH (08:02)
[2017-01-23] MEDS: MELOXICAM 7.5 MG TAB PO SCH (08:02)
--- NOTE | 2017-01-23 08:04 | P.PN ---
Subjective Progress Note Date: 01/22/17 This is a 76-year-old female one of Dr. Alejandro with a previous medical history significant for coronary artery disease status post left heart catheterization with the left heart catheterization that was done in September 2014 that showed ostial lesion of the diagonal branch and mild disease of the RCA, normal ejection fraction, hypertension and hypertensive cardiovascular disease with left ventricular hypertrophy, chronic tobacco use and dependence with chronic obstructive pulmonary disease, GERD, patient was in her usual state of health until a week ago Saturday when she went to see Dr. Alejandro and she felt that she is having urinary tract infection had a urinalysis that was orange in color at that time she was given oral antibiotic and she was sent home , patient returned to the office with similar complaint of suprapubic abdominal pain that appeared to be deep pain associated with the poor appetite without any fever or chills she was sent by Dr. Alejandro to the ER to have computed tomography scan for possible fistula, patient stated that she was doing fine that she came to the ER and she was seen by the physician talent assistant and had a pelvic examination that showed some stool in rectum, patient went home and she woke up in the morning she went to the bathroom. Yesterday in the morning and she had an orange color urine with significant creamy thick discharge from the vaginal and after she was wiping herself she saw stool material coming out so she ended up coming back to the ER yesterday she was admitted to the hospital for evaluation patient was seen in consultation by TAX REVENUE OFFICER Dr. Barnhart who recommended for the patient to be transferred to a tertiary care center because of possible rectovaginal fistula. 01/22: Made contact with [facility] regarding transfer which was denied by the surgeon. We have added and consults for cardiology and pulmonary medicine to clear the patient for eventual surgery and then she will be discharged home on antibiotics with planned follow-up with either [facility] or [facility]. Family is wavering between the 2 places and once they have decided, case management is trying to make an appointment for them for follow-up. Dr. Burgos has ordered a low fiber diet. Objective - Vital Signs Vital signs: Vital Signs Temp 97.3 F L 01/21/17 23:00 Pulse 67 01/22/17 00:00 Resp 18 01/22/17 00:00 BP 130/68 01/21/17 23:00 Pulse Ox 95 01/21/17 23:00 Intake & Output 01/21/17 01/22/17 01/22/17 18:59 06:59 18:59 Intake Total 200 Output Total 800 1450 Balance -800 -1250 Weight 40.823 kg Intake: Oral 200 Output: Urine 800 1450 Other: Voiding Method Toilet Toilet # Voids 1 - Exam General appearance: no acute distress, thin - EENT Eyes: anicteric sclerae, EOMI, PERRLA, no ptosis, no scleral icterus, normal appearance ENT: hearing grossly normal, normal oropharynx, no thrush Ears: bilateral: normal - Neck Neck: no lymphadenopathy, normal ROM, no rigidity, no stridor Carotids: bilateral: upstroke delayed Thyroid: bilateral: normal size - Respiratory Respiratory: bilateral: diminished, rhonchi, wheezing, prolonged expiration, negative: dullness, rales - Cardiovascular Rhythm: regular Heart sounds: normal: S1, S2 Abnormal Heart Sounds: systolic murmur, no S3 Gallop, no S4 Gallop, no click - Gastrointestinal General gastrointestinal: normal bowel sounds, soft, no splenomegaly, no tenderness, no umbilical hernia, no ventral hernia - Integumentary Integumentary: normal, normal turgor - Neurologic Neurologic: CNII-XII intact - Musculoskeletal Musculoskeletal: strength equal bilaterally - Psychiatric Psychiatric: A&O x's 3, appropriate affect, intact judgment & insight - Labs CBC & Chem 7: 01/21/17 06:59 01/21/17 06:59 Assessment and Plan Plan: 1. Possible recto- vagina fistula patient was seen in consultation by TAX REVENUE OFFICER and he was recommended for the patient to be evaluated by a tertiary care center such as in [facility], meanwhile we will continue the patient on Unasyn 3 g IV piggyback every 8 hours. 2. History of coronary artery disease . Stable at this time. 3. Hypertension and hypertensive cardiovascular disease. Continue losartan 100 mg in the morning and 50 mg in the evening . 4. Hyperlipidemia. Low-cholesterol diet. 5. GERD. Continue current Protonix 40 mg orally once every day. 6. Osteoarthritis. Continue meloxicam 15 mg orally once every day. 7. COPD. continue patient on DuoNeb 3 mL nebulization 4 times every day, oxygen support, continue patient also on Symbicort 160/4.5 g 2 puffs inhalation twice every day, Spiriva 1 inhalation once every day. 8. Tobacco use and dependence. Smoking cessation and counseling. 9. Osteoporosis. Stable. 10. DVT prophylaxis. Start Lovenox 40 mg subcutaneously every 24 hours. 11. GI prophylaxis. On Protonix 40 mg orally once every day. 12. Inpatient. Estimated length of stay 2 days. 13. Full code. Discharge plan: Return home Impression and plan of care have been directed as dictated by the signing physician. Keren Daniels nurse practitioner acting as scribe for signing physician.
[2017-01-23] MEDS: LOSARTAN 50 MG TAB PO SCH (08:06)
[2017-01-23] MEDS: ACETAMINOPHEN TAB 325 MG TAB PO PRN (08:08)
[2017-01-23 08:59] VITALS: BP 149/71; PULSE 74; RESP 24; TEMP 97.4
--- NOTE | 2017-01-23 11:02 | CDI ---
In responding to this query, please exercise your independent professional judgment. The [facility] Coding Staff and Clinical Documentation Specialists appreciate your assistance in clarifying documentation, maintaining compliance with coding guidelines, accurately documenting patients condition and capturing severity of illness. The fact that a question is asked does not imply that any particular answer is desired or expected. Communication forms are a method of clarifying documentation and are not made part of the Legal Health Record. Thank you in advance for your clarification. Last Revision, February 2015 Elaine Casey [address] [place] [address] Documentation Clarification Form Date: 01/23/2017 10:53:00 AM From: Frances Renee RN, CCDS Admit Date: 01/22/2017 8:41:00 AM Patient Name: Katelyn Valencia Visit Number: [id number] Dr. Daren España History/Risk Factors: GERD, COPD, Tobacco use and dependence, HTN, HTN CVD, enterovaginal fistula, OP Clinical Indicators: Labs: Albumin: 3.4/2.6 Total Protein: 6.1/5.1 Current BMI: 17.6 Insufficient energy intake: PT NPO Weight Loss: 5lbs Loss of muscle mass: Dietary Consult "Appears underweight" Treatment: Dietary Consult: Completed 01/21 Supplements: Ensure Enlive TID Lab monitoring: Am Daily In your professional opinion, can you please clarify if these findings signify one of the following conditions? Mild Protein-Calorie Malnutrition Moderate Protein-Calorie Malnutrition Severe Protein-Calorie Malnutrition Other condition, please specify Unable to determine Please document in your progress notes and discharge summary in order to capture severity of illness and risk of mortality. Include clinical findings that support your diagnosis. FYI: Press F11 to launch patient chart. Moderate protein calorie malnutrition/. MTDD
[2017-01-23] MEDS: IPRATROPIUM-ALBUTEROL 3 ML NEB INHALATION SCH (11:12)
[2017-01-23] MEDS: SYMBICORT 160-4.5 MCG INHALER INHALATION SCH (11:12)
--- NOTE | 2017-01-23 11:25 | P.PN ---
Subjective Progress Note Date: 01/23/17 Principal diagnosis: Enterovaginal fistula Patient has no new complaints. She is being discharged today with plans for outpatient follow-up next Saturday with colorectal surgery at [facility]. She is afebrile. No pain currently. Still with some vaginal discharge. Objective - Vital Signs Vital signs: Vital Signs Temp 97.4 F L 01/23/17 07:55 Pulse 74 01/23/17 07:55 Resp 24 01/23/17 07:55 BP 149/71 01/23/17 07:55 Pulse Ox 93 L 01/23/17 07:55 Intake & Output 01/22/17 01/23/17 01/23/17 18:59 06:59 18:59 Intake Total 1190 Output Total 1200 800 740 Balance -1200 390 -740 Intake: IV 950 Sodium Chloride 0.9% 1, 950 000 ml @ 100 mls/hr IV . Q10H TAYLOR Rx#:[id number] Oral 240 Output: Urine 1200 800 740 Other: Voiding Method Toilet Toilet Toilet # Voids 2 1 1 # Bowel Movements 1 - Exam Abdomen: Soft, nontender, nondistended - Labs CBC & Chem 7: 01/21/17 06:59 01/21/17 06:59 Assessment and Plan (1) Enterovaginal fistula Narrative/Plan: Stable for discharge. Patient will contact me with any changes between now and next week's outpatient visit. Status: Acute
--- NOTE | 2017-01-23 11:28 | P.CNPUL ---
History of Present Illness Consult date: 01/23/17 Reason for consult: COPD History of present illness: This is a 76-year-old female patient who has a rectal vaginal fistula. The patient was having difficulties with urinary tract infection and she was being treated with antibiotics on outpatient basis. Patient came back to the office and she was complaining of suprapubic abdominal pain and she was having diminished appetite. No reported fever. Further investigation confirmed the finding of a rectovaginal fistula. CAT scan of the abdomen and pelvis showed diverticulosis of the sigmoid colon, inflammatory change/induration surrounding sigmoid colon and rectosigmoid junction with possible colitis or diverticulitis and there are also several air-fluid levels within the small bilateral representing take ileus. There was a concern of a rectovaginal fistula based on his overall clinical presentation. The patient was seen by [facility] the patient was seen by general surgery and their recommendations was to hold this patient [facility]. The CAT scan of the pelvis was repeated on 01/20/2017 that showed minimal air and lesser fluid in the vaginal and this has decreased in amount compared to the previous film. There was no evidence of any fistula. Clinically however this is suspected. No leukocytosis. The cultures obtained from the vaginal discharge was positive for E. coli on 01/17/2017. Urine culture from 01/09/2017 showed Enterobacter aerogenesis. Currently the patient is on Unasyn I was asked to evaluate this patient's pulmonary status knowing that she is being considered to be transferred to another hospital and a pulmonary evaluation was also requested. The patient is known to my partner, Dr. Busby, and the patient has been seen in our office in the past and the pulmonary function test was done showing an FEV1 of 0.9 L which is 51% of predicted and total lung capacity of 143 percent of predicted and a diffusion capacity of 41% of predicted. The patient was given oxygen however she was not consistent in using O2. Her breathing medications have been optimized to include a combination of Spiriva and Symbicort. Her last hospitalization for COPD exacerbation was back in February 2016. Note that in the interim the patient was also diagnosed having a invasive ductal carcinoma of the left breast and the patient was taken to the operating room on 08/08/2016 underwent a left mastectomy with sentinel lymph node biopsy. She is also known to have various comorbidities. She has coronary artery disease and previous cardiac catheterization was done 2015 showed some nonocclusive disease. She has preserved LV function. Other comorbidities include hypertension, hypertensive heart disease with LVH, acid reflux and osteoarthritis. Review of Systems Constitutional: Reports fatigue, Reports weakness Eyes: denies blurred vision, denies bulging eye, denies decreased vision, denies diplopia, denies discharge, denies dry eye Ears: deny: decreased hearing, ear discharge, earache Ears, nose, mouth and throat: Denies headache, Denies sore throat Cardiovascular: Reports dyspnea on exertion, Reports shortness of breath Respiratory: Reports dyspnea, Reports home oxygen Gastrointestinal: Reports as per HPI Genitourinary: Reports as per HPI, Reports vaginal discharge, Reports vaginal odor Musculoskeletal: Denies myalgias Musculoskeletal: absent: ankle pain, ankle stiffness, ankle swelling Integumentary: Denies pruritus, Denies rash Neurological: Denies numbness, Denies weakness Psychiatric: Denies anxiety, Denies depression Endocrine: Denies fatigue, Denies weight change Past Medical History Past Medical History: Asthma, Cancer, COPD, GERD/Reflux, Hypertension, Osteoarthritis (OA) Additional Past Medical History / Comment(s): COPD, breast cancer with a recent left mastectomy, diverticulosis with diverticular complications and possible rectovaginal fistula, acid reflux, hypertension, osteoarthritis, irritable bowel syndrome, peptic ulcer disease, frequent urine checked infections, coronary artery disease with nonocclusive CAD based on the previous cardiac catheterization 2014, hypertension History of Any Multi-Drug Resistant Organisms: None Reported Past Surgical History: Bladder Surgery, Cholecystectomy, Heart Catheterization, Hysterectomy, Orthopedic Surgery Additional Past Surgical History / Comment(s): 09/21/14 cardiac cath with disease -treated medically, cataracts bilaterally, rt rotator cuff, juan m carpal tunnel, bladder suspension, rectocele repair, hemorrhoidectomy, colonoscopies, camera endoscopy, EGD, left masectomy Past Anesthesia/Blood Transfusion Reactions: No Reported Reaction Additional Past Anesthesia/Blood Transfusion Reaction / Comment(s): Pt is claustrophobic. Past Psychological History: Anxiety Additional Psychological History / Comment(s): Pt resides at [facility]. She is independent. She uses no assistive device. She drives. She has a nebulizer. She has a little anxiety which she occasionally uses xanax with good results. She is claustrophobic. Smoking Status: Light tobacco smoker Past Alcohol Use History: None Reported Additional Past Alcohol Use History / Comment(s): Pt started smoking in 1960 and is 1 ppd smoker and continues to smoke at least a few cigarettes per day. She denies any marijuana, street drug or alcohol abuse. Past Drug Use History: None Reported - Past Family History Father Family Medical History: COPD Additional Family Medical History / Comment(s): Father is . Mother Family Medical History: CVA/TIA, Hypertension Additional Family Medical History / Comment(s): at age 91 Brother(s) Family Medical History: Cancer, Myocardial Infarction ([place]) Daughter(s) Family Medical History: No Reported History Son(s) Family Medical History: No Reported History Sister(s) Family Medical History: Cancer Medications and Allergies Home Medications Medication Instructions Recorded Confirmed Type Diphenox-Atrop 2.5-0.025 mg 1 tab PO BID PRN 09/17/14 01/20/17 History [Lomotil] Gabapentin [Neurontin] 100 mg PO BID 09/17/14 01/20/17 History ALPRAZolam [Xanax] 1 mg PO TID PRN 06/16/15 01/20/17 History Albuterol Nebulized [Ventolin 2.5 mg INHALATION RT-TID 06/16/15 01/20/17 History Nebulized] Prochlorperazine [Compazine] 10 mg PO TID PRN #30 tab 06/18/15 01/20/17 Rx Losartan Potassium [Cozaar] 50 mg PO HS 03/06/16 01/20/17 History Losartan Potassium [Cozaar] 100 mg PO QAM 03/06/16 01/20/17 History Omeprazole [PriLOSEC] 20 mg PO DAILY 03/06/16 01/20/17 History Celecoxib [CeleBREX] 200 mg PO DAILY 06/20/16 01/20/17 History Budesonide/Formoterol Fumarate 2 puff INHALATION RT-BID 11/12/16 01/20/17 History [Symbicort 160-4.5 Mcg Inhaler] Dicyclomine [Bentyl] 10 mg PO BID 11/12/16 01/20/17 History Tiotropium [place] [Spiriva] 1 cap INHALATION RT-DAILY 11/12/16 01/20/17 History Ciprofloxacin HCl [Cipro] 500 mg PO Q12HR #20 tablet 01/23/17 Rx metroNIDAZOLE [Flagyl] 500 mg PO TID #30 tab 01/23/17 Rx Allergies Allergy/AdvReac Type Severity Reaction Status Date / Time aspirin AdvReac Nausea Verified 01/20/17 15:55 codeine AdvReac Nausea Verified 01/20/17 15:55 Iodinated Contrast- Oral and AdvReac Vomiting Verified 01/20/17 15:55 IV Dye [Iodinated Contrast Media - IV Dye] Physical Exam Vitals: Vital Signs Temp Pulse Pulse Resp BP Pulse Ox 01/23/17 07:55 97.4 F L 74 24 149/71 93 L 01/23/17 02:15 97.6 F 66 18 124/73 95 01/22/17 20:59 71 01/22/17 20:46 71 01/22/17 20:25 97.3 F L 75 20 171/71 94 L 01/22/17 16:00 97.0 F L 79 16 159/92 94 L 01/22/17 14:24 64 01/22/17 14:12 64 01/22/17 12:00 97.3 F L 66 16 159/85 94 L 01/22/17 09:24 58 L 01/22/17 09:11 58 L Intake and Output 01/22/17 01/23/17 01/23/17 22:59 06:59 14:59 Intake Total 240 950 Output Total 200 600 Balance 40 350 Intake: IV 950 Sodium Chloride 0.9% 1, 950 000 ml @ 100 mls/hr IV . Q10H [facility] Rx#:[id number] Oral 240 Output: Urine 200 600 Other: Voiding Method Toilet Toilet # Voids 1 # Bowel Movements 1 Head exam was generally normal. There was no scleral icterus or corneal arcus. Mucous membranes were moist.Neck was supple and without jugular venous distension, thyromegaly, or carotid bruits. Carotids were easily palpable bilaterally. There was no adenopathy. Lung sounds are diminished bilaterally along with some few scattered expiratory wheezes otherwise within normal limits.Cardiac exam revealed the PMI to be normally situated and sized. The rhythm was regular and no extrasystoles were noted during several minutes of auscultation. The first and second heart sounds were normal and physiologic splitting of the second heart sound was noted. There were no murmurs, rubs, clicks, or gallops.Abdominal exam revealed normal bowel sounds. The abdomen was soft, non-tender, and without masses, organomegaly, or appreciable enlargement of the abdominal aorta.Examination of the extremities revealed easily palpable radial, femoral and pedal pulses. There was no cyanosis, clubbing or edema.Examination of the skin revealed no evidence of significant rashes, suspicious appearing nevi or other concerning lesions. Neurologically the patient is awake 3 in his normal neurologic function is without any focal deficits muscular skeletal examination shows equal strength bilaterally without arthritis or joint deformities. Vaginal examination was deferred to surgery and [facility]. Results - Laboratory Findings CBC and BMP: 01/21/17 06:59 01/21/17 06:59 PT/INR, D-dimer PT 10.6 sec (9.0-12.0) 01/20/17 16:03 INR 1.1 (<1.2) 01/20/17 16:03 Abnormal lab findings: Abnormal Labs 01/20/17 01/20/17 01/21/17 16:03 16:03 06:59 Neutrophils # 7.9 H Lymphocytes # 0.6 L Chloride 112 H BUN 24 H 21 H Glucose 184 H AST 12 L Total Protein 6.1 L 5.1 L Albumin 3.4 L 2.6 L Assessment and Plan Plan: Assessment 1 suspected rectovaginal fistula based on clinical presentation, recurrent urine checked infection and complicated diverticular disease. The patient was found to have E. coli in the vaginal discharge and currently the patient is covered with IV Unasyn. Awaiting transfer to tertiary care center 2 COPD currently inactive and stable. Based on FEV1 is around 51% of predicted , she is a chronic smoker maintained on a combination of Spiriva and Symbicort on outpatient basis 3 coronary artery disease currently inactive and stable, most recent cardiac catheterization showed nonocclusive disease 4 hypertension 5 hyperlipidemia 6 smoker 7 hypertensive heart disease with mild degree of concentric left ventricular hypertrophy 8 breast cancer with a recent left mastectomy. 9 osteoporosis Plan The patient COPD stable. Continue same respiratory medications. The patient will be discharged home to be followed up with the surgeons at [facility] regarding her rectovaginal fistula. No signs of septicemia at this point. She is on antibiotics regarding her recurrent urinary tract infections. Continues incentive spirometer. Smoking cessation counseling was done.
== END 2017-01-23 11:31 | disposition home or self-care (01) | DRG 393 ==
LOC: EC 15:23 → INTOOBSV 18:45 → 3SUR 18:45 → 6PED 01-21 10:52 → OBSVTOIN 01-22 08:41
PROVIDERS: ADMIT Internal Medicine; ATTEND Internal Medicine
DX: N82.3 Fistula of vagina to large intestine (principal); E43 Unspecified severe protein-calorie malnutrition; J44.9 Chronic obstructive pulmonary disease, unspecified; I11.9 Hypertensive heart disease without heart failure; Z68.1 Body mass index [BMI] 19.9 or less, adult; I25.10 Atherosclerotic heart disease of native coronary artery without angina pectoris; E78.5 Hyperlipidemia, unspecified; K21.9 Gastro-esophageal reflux disease without esophagitis; M19.91 Primary osteoarthritis, unspecified site; F41.9 Anxiety disorder, unspecified; F17.210 Nicotine dependence, cigarettes, uncomplicated; M81.0 Age-related osteoporosis without current pathological fracture; K58.0 Irritable bowel syndrome with diarrhea; K57.30 Diverticulosis of large intestine without perforation or abscess without bleeding; G43.909 Migraine, unspecified, not intractable, without status migrainosus; Z79.1 Long term (current) use of non-steroidal anti-inflammatories (NSAID); Z79.51 Long term (current) use of inhaled steroids; Z79.899 Other long term (current) drug therapy; Z71.3 Dietary counseling and surveillance; Z87.11 Personal history of peptic ulcer disease; Z90.49 Acquired absence of other specified parts of digestive tract; Z90.710 Acquired absence of both cervix and uterus; Z90.12 Acquired absence of left breast and nipple; Z98.42 Cataract extraction status, left eye; Z98.41 Cataract extraction status, right eye; Z85.3 Personal history of malignant neoplasm of breast; Z88.5 Allergy status to narcotic agent; Z88.6 Allergy status to analgesic agent; Z91.041 Radiographic dye allergy status
CPT/HCPCS: 36415; 72193; 80053; 85025; 85610; 85730; 86850; 86900; 86901; 94640; 96361; 96365; 96375; 99284

== ENCOUNTER 2017-04-29 12:39 | Inpatient (IN) | payer MEDICARE ==
[2017-04-29] MEDS ORDERED: ALBUTEROL NEBULIZED 2.5 MG/3 ML INHALATION STA (13:09)
[2017-04-29] MEDS ORDERED: methylPREDNISolone SOD SUCCI 125 MG/2 ML VIAL IV STA (13:09)
--- NOTE | 2017-04-29 13:19 | ED ---
General Adult HPI - General Chief complaint: Shortness of Breath Stated complaint: Diff Breathing Time Seen by Provider: 04/29/17 12:45 Source: patient, RN notes reviewed Mode of arrival: wheelchair Limitations: no limitations - History of Present Illness Initial comments: This is a 76-year-old female presents emergency Department complaining of shortness of breath. Patient states she has a COPD history. Patient states this morning she woke up and she felt nauseated but did not vomit. Patient states after that she started having some chest tightness and became very short of breath. Patient denies any recent fever chills or cough. Patient denies any diarrhea. Patient denies any back pain. Patient denies any dysuria hematuria urinary frequency. Patient denies headache patient denies numbness weakness. Patient denies lightheadedness dizziness or near syncopal episode. - Related Data Home Medications Medication Instructions Recorded Confirmed Diphenox-Atrop 2.5-0.025 mg 1 tab PO BID PRN 09/17/14 04/29/17 [Lomotil] Gabapentin [Neurontin] 100 mg PO BID 09/17/14 04/29/17 ALPRAZolam [Xanax] 1 mg PO TID PRN 06/16/15 04/29/17 Albuterol Nebulized [Ventolin 2.5 mg INHALATION RT-TID 06/16/15 04/29/17 Nebulized] Losartan Potassium [Cozaar] 50 mg PO HS 03/06/16 04/29/17 Losartan Potassium [Cozaar] 100 mg PO QAM 03/06/16 04/29/17 Omeprazole [PriLOSEC] 20 mg PO DAILY 03/06/16 04/29/17 Celecoxib [CeleBREX] 200 mg PO DAILY 06/20/16 04/29/17 Budesonide/Formoterol Fumarate 2 puff INHALATION RT-BID 11/12/16 04/29/17 [Symbicort 160-4.5 Mcg Inhaler] Dicyclomine [Bentyl] 10 mg PO BID 11/12/16 04/29/17 Tiotropium [place] [Spiriva] 1 cap INHALATION RT-DAILY 11/12/16 04/29/17 Previous Rx's Medication Instructions Recorded Prochlorperazine [Compazine] 10 mg PO TID PRN #30 tab 06/18/15 Allergies Allergy/AdvReac Type Severity Reaction Status Date / Time aspirin AdvReac Nausea Verified 04/29/17 14:32 codeine AdvReac Nausea Verified 04/29/17 14:32 Iodinated Contrast- Oral and AdvReac Vomiting Verified 04/29/17 14:32 IV Dye [Iodinated Contrast Media - IV Dye] Review of Systems ROS Statement: Those systems with pertinent positive or pertinent negative responses have been documented in the HPI. ROS Other: All systems not noted in ROS Statement are negative. Past Medical History Past Medical History: Asthma, Cancer, COPD, GERD/Reflux, Hypertension, Osteoarthritis (OA) Additional Past Medical History / Comment(s): COPD, breast cancer with a recent left mastectomy, diverticulosis with diverticular complications and possible rectovaginal fistula, acid reflux, hypertension, osteoarthritis, irritable bowel syndrome, peptic ulcer disease, frequent urine checked infections, coronary artery disease with nonocclusive CAD based on the previous cardiac catheterization 2014, hypertension History of Any Multi-Drug Resistant Organisms: None Reported Past Surgical History: Bladder Surgery, Cholecystectomy, Heart Catheterization, Hysterectomy, Orthopedic Surgery Additional Past Surgical History / Comment(s): 09/21/14 cardiac cath with disease -treated medically, cataracts bilaterally, rt rotator cuff, juan m carpal tunnel, bladder suspension, rectocele repair, hemorrhoidectomy, colonoscopies, camera endoscopy, EGD, left masectomy Past Anesthesia/Blood Transfusion Reactions: No Reported Reaction Additional Past Anesthesia/Blood Transfusion Reaction / Comment(s): Pt is claustrophobic. Past Psychological History: Anxiety Smoking Status: Light tobacco smoker Past Alcohol Use History: None Reported Past Drug Use History: None Reported - Past Family History Father Family Medical History: COPD Additional Family Medical History / Comment(s): Father is . Mother Family Medical History: CVA/TIA, Hypertension Additional Family Medical History / Comment(s): at age 91 Brother(s) Family Medical History: Cancer, Myocardial Infarction ([place]) Daughter(s) Family Medical History: No Reported History Son(s) Family Medical History: No Reported History Sister(s) Family Medical History: Cancer General Exam - General Exam Comments Initial Comments: GENERAL: Patient is well-developed and well-nourished. Patient is nontoxic and well- hydrated and is in mild distress. ENT: Neck is soft and supple. No significant lymphadenopathy is noted. Oropharynx is clear. Moist mucous membranes. Neck has full range of motion without eliciting any pain. EYES: The sclera were anicteric and conjunctiva were pink and moist. Extraocular movements were intact and pupils were equal round and reactive to light. Eyelids were unremarkable. PULMONARY: Patient has dry crackles bilaterally. Patient's breath sounds are diminished throughout. CARDIOVASCULAR: There is a regular rate and rhythm without any murmurs gallops or rubs. ABDOMEN: Soft and nontender with normal bowel sounds. No palpable organomegaly was noted. There is no palpable pulsatile mass. SKIN: Skin is clear with no lesions or rashes and otherwise unremarkable. NEUROLOGIC: Patient is alert and oriented x3. Cranial nerves II through XII are grossly intact. Motor and sensory are also intact. Normal speech, volume and content. Symmetrical smile. MUSCULOSKELETAL: Normal extremities with adequate strength and full range of motion. No lower extremity swelling or edema. No calf tenderness. LYMPHATICS: No significant lymphadenopathy is noted PSYCHIATRIC: Normal psychiatric evaluation. Normal interpersonal interactions appears functionally intact in deals appropriately with others. No signs of depression. Limitations: no limitations Course Vital Signs 04/29/17 04/29/17 04/29/17 12:45 12:50 13:32 Temperature 99.0 F Pulse Rate 82 82 Respiratory 26 H 22 Rate Blood Pressure 190/88 O2 Sat by Pulse 94 L Oximetry 04/29/17 04/29/17 04/29/17 14:01 14:21 14:59 Temperature 97.5 F L Pulse Rate 88 91 90 Respiratory 20 18 Rate Blood Pressure 169/77 141/65 O2 Sat by Pulse 97 97 Oximetry Medical Decision Making - Medical Decision Making EKG shows normal sinus rhythm at 79 bpm OK interval is 134 QRS 80 QT interval 376 QTC is 431 per patient's EKG shows no ST segment elevation or depression or T wave abnormalities are noted. Patient got 3 breathing treatments in the emergency department back to back. Patient did feel better after those however she was still diminished bilaterally. Patient got some steroids in the emergency department his well. Patient's chest x-ray shows no acute abnormality. I spoke with Dr. España he agreed to admit the patient I wrote admitting orders I consult Dr. Foss. Indicating breathing treatments on the floor - Lab Data Result diagrams: 04/29/17 13:36 04/29/17 13:36 Lab Results 04/29/17 04/29/17 04/29/17 Range/Units 13:36 13:36 13:36 WBC 10.5 (3.8-10.6) k/uL RBC 5.03 (3.80-5.40) m/uL Hgb 14.1 (11.4-16.0) gm/dL Hct 45.9 (34.0-46.0) % MCV 91.4 (80.0-100.0) fL MCH 28.0 (25.0-35.0) pg MCHC 30.6 L (31.0-37.0) g/dL RDW 14.7 (11.5-15.5) % Plt Count 217 (150-450) k/uL Neutrophils % 89 % Lymphocytes % 5 % Monocytes % 3 % Eosinophils % 3 % Basophils % 0 % Neutrophils # 9.4 H (1.3-7.7) k/uL Lymphocytes # 0.5 L (1.0-4.8) k/uL Monocytes # 0.3 (0-1.0) k/uL Eosinophils # 0.3 (0-0.7) k/uL Basophils # 0.0 (0-0.2) k/uL PT (9.0-12.0) sec INR (<1.2) APTT (22.0-30.0) sec Sodium 142 (137-145) mmol/L Potassium 3.9 (3.5-5.1) mmol/L Chloride 107 (98-107) mmol/L Carbon Dioxide 27 (22-30) mmol/L Anion Gap 8 mmol/L BUN 26 H (7-17) mg/dL Creatinine 0.75 (0.52-1.04) mg/dL Est GFR (MDRD) Af Amer >60 (>60 ml/min/1.73 sqM) Est GFR (MDRD) Non-Af >60 (>60 ml/min/1.73 sqM) Glucose 98 (74-99) mg/dL Calcium 9.4 (8.4-10.2) mg/dL Magnesium 1.8 (1.6-2.3) mg/dL Total Bilirubin 0.6 (0.2-1.3) mg/dL AST 26 (14-36) U/L ALT 29 (9-52) U/L Alkaline Phosphatase 87 (38-126) U/L Total Creatine Kinase 36 (30-135) U/L CK-MB (CK-2) 1.0 (0.0-2.4) ng/mL CK-MB (CK-2) Rel Index 2.8 Troponin I <0.012 (0.000-0.034) ng/mL Total Protein 6.1 L (6.3-8.2) g/dL Albumin 3.5 (3.5-5.0) g/dL 04/29/17 Range/Units 13:36 WBC (3.8-10.6) k/uL RBC (3.80-5.40) m/uL Hgb (11.4-16.0) gm/dL Hct (34.0-46.0) % MCV (80.0-100.0) fL MCH (25.0-35.0) pg MCHC (31.0-37.0) g/dL RDW (11.5-15.5) % Plt Count (150-450) k/uL Neutrophils % % Lymphocytes % % Monocytes % % Eosinophils % % Basophils % % Neutrophils # (1.3-7.7) k/uL Lymphocytes # (1.0-4.8) k/uL Monocytes # (0-1.0) k/uL Eosinophils # (0-0.7) k/uL Basophils # (0-0.2) k/uL PT 10.5 (9.0-12.0) sec INR 1.1 (<1.2) APTT 25.8 (22.0-30.0) sec Sodium (137-145) mmol/L Potassium (3.5-5.1) mmol/L Chloride (98-107) mmol/L Carbon Dioxide (22-30) mmol/L Anion Gap mmol/L BUN (7-17) mg/dL Creatinine (0.52-1.04) mg/dL Est GFR (MDRD) Af Amer (>60 ml/min/1.73 sqM) Est GFR (MDRD) Non-Af (>60 ml/min/1.73 sqM) Glucose (74-99) mg/dL Calcium (8.4-10.2) mg/dL Magnesium (1.6-2.3) mg/dL Total Bilirubin (0.2-1.3) mg/dL AST (14-36) U/L ALT (9-52) U/L Alkaline Phosphatase (38-126) U/L Total Creatine Kinase (30-135) U/L CK-MB (CK-2) (0.0-2.4) ng/mL CK-MB (CK-2) Rel Index Troponin I (0.000-0.034) ng/mL Total Protein (6.3-8.2) g/dL Albumin (3.5-5.0) g/dL Critical Care Time Critical Care Time: Yes Total Critical Care Time: 35 Disposition Clinical Impression: COPD with acute exacerbation Disposition: ADMITTED IP TO THIS HOSP Referrals: Alvin Alejandro DO [Primary Care Provider] - 1-2 days Time of Disposition: 15:24
[2017-04-29 13:44] LABS: Basophils % (A) 0 %; Eosinophils # (A) 0.3 k/uL (0-0.7); Eosinophils % (A) 3 %; HCT 45.9 % (34.0-46.0); HGB 14.1 gm/dL (11.4-16.0); Lymphocytes # (A) 0.5 k/uL (1.0-4.8); Lymphocytes % (A) 5 %; MCHC 30.6 g/dL (31.0-37.0); MCV 91.4 fL (80.0-100.0); Mean Platelet Volume 6.9; Monocytes # (A) 0.3 k/uL (0-1.0); Monocytes % (A) 3 %; Neutrophils # (A) 9.4 k/uL (1.3-7.7); Neutrophils % (A) 89 %; Platelet Count 217 k/uL (150-450); RBC 5.03 m/uL (3.80-5.40); RDW 14.7 % (11.5-15.5); WBC 10.5 k/uL (3.8-10.6)
[2017-04-29 13:50] LABS: INR 1.1 (<1.2); Partial Thromboplastin Time 25.8 sec (22.0-30.0); Prothrombin Time 10.5 sec (9.0-12.0)
[2017-04-29 13:55] LABS: Chloride 107 mmol/L (98-107); Potassium 3.9 mmol/L (3.5-5.1); Sodium 142 mmol/L (137-145)
[2017-04-29 14:12] LABS: ALT 29 U/L (9-52); AST 26 U/L (14-36); Albumin 3.5 g/dL (3.5-5.0); Alkaline Phosphatase 87 U/L (38-126); Anion Gap 8 mmol/L; Blood Urea Nitrogen 26 mg/dL (7-17); Calcium 9.4 mg/dL (8.4-10.2); Carbon Dioxide 27 mmol/L (22-30); Creatine Kinase 36 U/L (30-135); Glucose 98 mg/dL (74-99); Magnesium 1.8 mg/dL (1.6-2.3); Total Bilirubin 0.6 mg/dL (0.2-1.3); Total Protein 6.1 g/dL (6.3-8.2)
[2017-04-29 14:24] LABS: Troponin I <0.012 ng/mL (0.000-0.034)
--- NOTE | 2017-04-29 14:40 | XR ---
EXAMINATION TYPE: XR chest 2V DATE OF EXAM: 04/29/2017 COMPARISON: 03/06/2016 HISTORY: Shortness of breath TECHNIQUE: Frontal and lateral views of the chest are obtained. FINDINGS: Scattered senescent parenchymal changes noted. Hyperinflation compatible with COPD. No evidence for infiltrate. No evidence for atelectasis. Chronic upper lobe postinflammatory changes Heart size is stable. Mediastinal structures are stable and grossly unremarkable. No evidence for hilar prominence. Degenerative changes dorsal spine. IMPRESSION: 1. No evidence for acute pulmonary disease.
[2017-04-29] MEDS ORDERED: ONDANSETRON 4 MG/2 ML VIAL IVP STA (14:51)
[2017-04-29] MEDS ORDERED: IPRATROPIUM-ALBUTEROL 3 ML NEB INHALATION PRN (15:26)
[2017-04-29] MEDS ORDERED: HYDROmorphone 0.5 MG/0.5 ML SYRINGE IVP STA (15:55)
[2017-04-29] MEDS ORDERED: HYDROmorphone 0.5 MG/0.5 ML SYRINGE IVP PRN (18:09)
[2017-04-29] MEDS ORDERED: PROCHLORPERAZINE 10 MG TAB PO PRN (18:11)
[2017-04-29] MEDS ORDERED: DIPHENOX-ATROP 2.5-0.025 MG 1 EACH TAB PO PRN (18:11)
[2017-04-29] MEDS: methylPREDNISolone SOD SUCCI 125 MG/2 ML VIAL IV SCH ×2 (18:15→22:20)
[2017-04-29] MEDS: BUDESONIDE 1 MG/2 ML NEBU INHALATION SCH (19:57)
[2017-04-29] MEDS: IPRATROPIUM-ALBUTEROL 3 ML NEB INHALATION SCH ×2 (19:57→23:31)
[2017-04-29] MEDS: LOSARTAN 50 MG TAB PO SCH (20:29)
[2017-04-29] MEDS: GABAPENTIN 100 MG CAP PO SCH (20:29)
[2017-04-29] MEDS: DICYCLOMINE 10 MG CAP PO SCH (20:29)
[2017-04-29 21:39] LABS: Glucose,Whole Blood 172 mg/dL (75-99)
[2017-04-29] MEDS: INSULIN ASPART 100 UNIT/ML 1 ML 10 ML VIAL SQ SCH (22:16)
[2017-04-29] MEDS: ALPRAZolam 0.5 MG TAB PO PRN (22:20)
[2017-04-30] MEDS: IPRATROPIUM-ALBUTEROL 3 ML NEB INHALATION SCH ×5 (03:28→20:57)
[2017-04-30 05:41] LABS: Glucose,Whole Blood 137 mg/dL (75-99)
[2017-04-30] MEDS: INSULIN ASPART 100 UNIT/ML 1 ML 10 ML VIAL SQ SCH ×3 (05:50→21:22)
[2017-04-30] MEDS: PANTOPRAZOLE 40 MG TABLET PO SCH (05:57)
[2017-04-30] MEDS: methylPREDNISolone SOD SUCCI 125 MG/2 ML VIAL IV SCH (05:57)
[2017-04-30] MEDS: BUDESONIDE 1 MG/2 ML NEBU INHALATION SCH ×2 (07:25→20:57)
[2017-04-30] MEDS: POLYETHYLENE GLYCOL 3350 17 GM POWD.PACK PO SCH (08:34)
[2017-04-30] MEDS: DICYCLOMINE 10 MG CAP PO SCH ×2 (08:35→19:39)
[2017-04-30] MEDS: GABAPENTIN 100 MG CAP PO SCH ×2 (08:35→19:39)
[2017-04-30] MEDS: MELOXICAM 7.5 MG TAB PO SCH (08:35)
[2017-04-30] MEDS: LOSARTAN 50 MG TAB PO SCH ×2 (08:35→19:39)
[2017-04-30] MEDS: ENOXAPARIN 40 MG/0.4 ML SYRINGE SQ SCH (10:12)
[2017-04-30 11:25] VITALS: BMI 16.5
[2017-04-30 11:40] LABS: Glucose,Whole Blood 137 mg/dL (75-99)
[2017-04-30 13:19] LABS: Hemoglobin A1C 4.6 % (4.0-6.0)
--- NOTE | 2017-04-30 14:04 | P.CNPUL ---
History of Present Illness Consult date: 04/30/17 Reason for consult: dyspnea, COPD, hypoxemia Chief complaint: Shortness of breath/difficulty breathing History of present illness: Consult dated 04/30/2017 76-year-old with history of shortness of breath. She is well-known to me. She has a history of will establish and pretty severe COPD. He woke she woke up the day prior to admission with complaints of increasing shortness of breath. She also some chest tightness. No fever or chills. She did have apparently some nausea but no vomiting. She wasn't coughing up much of any phlegm just a little bit. No fever no chills. Again no vomiting or diarrhea. The patient's feeling much better now. She was admitted to the sixth floor for observation. She likely can be transferred out to the general medical floor. She is not having any additional shortness of breath at this time. She is almost at baseline. Her medical history includes COPD gastroesophageal reflux disease breast cancer hypertension DJD. She's had a previous left mastectomy and also the repair of a rectovaginal fistula. She also has a history of CAD paternal bowel syndrome urinary tract infections and diverticulosis. Review of Systems A 12 point review of system is positive for shortness of breath. She also some chest tightness chest congestion cough some phlegm production. No fever no chills. Nausea without vomiting or diarrhea. Past Medical History Past Medical History: Asthma, Cancer, COPD, GERD/Reflux, Hypertension, Osteoarthritis (OA) Additional Past Medical History / Comment(s): COPD, breast cancer with a recent left mastectomy, diverticulosis with diverticular complications and possible rectovaginal fistula"[facility]in [facility] at [facility] had repair of a hole between vagina nd rectum and a colostomy", acid reflux, hypertension, osteoarthritis, irritable bowel syndrome, peptic ulcer disease, frequent urine checked infections, coronary artery disease with nonocclusive CAD based on the previous cardiac catheterization 2014, hypertension History of Any Multi-Drug Resistant Organisms: None Reported Past Surgical History: Bladder Surgery, Cholecystectomy, Heart Catheterization, Hysterectomy, Orthopedic Surgery Additional Past Surgical History / Comment(s): 09/21/14 cardiac cath with disease -treated medically, cataracts bilaterally, rt rotator cuff, juan m carpal tunnel, bladder suspension, rectocele repair, hemorrhoidectomy, colonoscopies, camera endoscopy, EGD, left masectomy , "had hole between vagina and rectum repaired and a colostomy" Past Anesthesia/Blood Transfusion Reactions: No Reported Reaction Additional Past Anesthesia/Blood Transfusion Reaction / Comment(s): Pt is claustrophobic. Smoking Status: Current every day smoker - Past Family History Father Family Medical History: COPD Additional Family Medical History / Comment(s): Father is . Mother Family Medical History: CVA/TIA, Hypertension Additional Family Medical History / Comment(s): at age 91 Brother(s) Family Medical History: Cancer, Myocardial Infarction ([place]) Daughter(s) Family Medical History: No Reported History Son(s) Family Medical History: No Reported History Sister(s) Family Medical History: Cancer Medications and Allergies Home Medications Medication Instructions Recorded Confirmed Type Diphenox-Atrop 2.5-0.025 mg 1 tab PO BID PRN 09/17/14 04/29/17 History [Lomotil] Gabapentin [Neurontin] 100 mg PO BID 09/17/14 04/29/17 History ALPRAZolam [Xanax] 1 mg PO TID PRN 06/16/15 04/29/17 History Albuterol Nebulized [Ventolin 2.5 mg INHALATION RT-TID 06/16/15 04/29/17 History Nebulized] Prochlorperazine [Compazine] 10 mg PO TID PRN #30 tab 06/18/15 04/29/17 Rx Losartan Potassium [Cozaar] 50 mg PO HS 03/06/16 04/29/17 History Losartan Potassium [Cozaar] 100 mg PO QAM 03/06/16 04/29/17 History Omeprazole [PriLOSEC] 20 mg PO DAILY 03/06/16 04/29/17 History Celecoxib [CeleBREX] 200 mg PO DAILY 06/20/16 04/29/17 History Budesonide/Formoterol Fumarate 2 puff INHALATION RT-BID 11/12/16 04/29/17 History [Symbicort 160-4.5 Mcg Inhaler] Dicyclomine [Bentyl] 10 mg PO BID 11/12/16 04/29/17 History Tiotropium [place] [Spiriva] 1 cap INHALATION RT-DAILY 11/12/16 04/29/17 History Allergies Allergy/AdvReac Type Severity Reaction Status Date / Time aspirin AdvReac Nausea Verified 04/29/17 14:32 codeine AdvReac Nausea Verified 04/29/17 14:32 Iodinated Contrast- Oral and AdvReac Vomiting Verified 04/29/17 14:32 IV Dye [Iodinated Contrast Media - IV Dye] Physical Exam Osteopathic Statement: *. No significant issues noted on an osteopathic structural exam other than those noted in the History and Physical/Consult. Vitals: Vital Signs Temp Pulse Pulse Resp BP BP Pulse Ox 04/30/17 12:20 90 12 125/62 94 L 04/30/17 11:35 92 04/30/17 11:25 92 04/30/17 08:30 97.4 F L 94 12 116/56 92 L 04/30/17 07:40 88 04/30/17 07:31 84 04/30/17 04:00 83 18 133/61 98 04/30/17 00:00 97.6 F 84 19 145/73 98 04/29/17 20:12 88 04/29/17 20:00 97.4 F L 91 20 137/65 97 04/29/17 19:57 86 04/29/17 17:45 96.8 F L 90 16 171/74 99 04/29/17 17:20 97.5 F L 90 18 157/66 96 04/29/17 15:57 97.8 F 90 18 158/69 96 04/29/17 14:59 97.5 F L 90 18 141/65 97 04/29/17 14:21 91 20 169/77 97 04/29/17 14:01 88 Intake and Output 04/29/17 04/30/17 04/30/17 22:59 06:59 14:59 Intake Total 240 Balance 240 Intake: Oral 240 Other: Voiding Method Toilet Toilet Toilet # Voids 2 0 Weight 38.3 kg 38.3 kg Patient Weight 05/01/17 06:59 Weight 38.3 kg No acute distress, oriented 3. HEENT examination is grossly unremarkable. Mucous membranes are moist. No oral lesions. Neck supple. Full range of motion. No adenopathy thyromegaly or neck vein distention. Cardiovascular examination reveals regular rhythm rate. S1-S2 normal. No S3 or S4. No discernible murmur noted. Lungs reveal clear but severely diminished breath sounds. A few scattered mild rhonchi. No wheezes. There is prolongation on forced maneuver. Abdomen soft bowel sounds are heard. No masses or tenderness. Extremities are intact. No cyanosis clubbing or edema. Skin is without rash or lesion. Neurologic examination is brief but nonfocal. Results - Laboratory Findings CBC and BMP: 04/29/17 13:36 04/29/17 13:36 PT/INR, D-dimer PT 10.5 sec (9.0-12.0) 04/29/17 13:36 INR 1.1 (<1.2) 04/29/17 13:36 Abnormal lab findings: Abnormal Labs 04/29/17 04/29/17 04/29/17 13:36 13:36 21:38 MCHC 30.6 L Neutrophils # 9.4 H Lymphocytes # 0.5 L BUN 26 H POC Glucose (mg/dL) 172 H Total Protein 6.1 L 04/30/17 04/30/17 05:39 11:39 MCHC Neutrophils # Lymphocytes # BUN POC Glucose (mg/dL) 137 H 137 H Total Protein - Diagnostic Findings Chest x-ray: image reviewed (Labs x-rays a medications are reviewed) Assessment and Plan Assessment: COPD exacerbation Tracheobronchitis Breast cancer Gastroesophageal reflux disease Hypertension Osteoarthritis Status post left mastectomy Diverticular disease History of urinary tract infections Coronary artery disease Irritable bowel syndrome Plan: Plan dated 04/30/2017. Medications are reviewed. Please semi-adjustments. X-rays labs and medications are all reviewed. The patient seemed pretty much at baseline. The patient can be transferred down to the general medical floor. No additional recommendations are made. We'll make sure that she has follow-up with me in the office. Time with Patient: Greater than 30
--- NOTE | 2017-04-30 14:12 | P.HPIM ---
History of Present Illness H&P Date: 04/30/17 Chief Complaint: Difficulty breathing This is a 76-year-old female one of Dr. Alejandro with a previous medical history significant for coronary artery disease status post left heart catheterization with the left heart catheterization that was done in September 2014 that showed ostial lesion of the diagonal branch and mild disease of the RCA, normal ejection fraction, hypertension and hypertensive cardiovascular disease with left ventricular hypertrophy, chronic tobacco use and dependence with chronic obstructive pulmonary disease, GERD. She had a recent hospitalization in January 2017 for a rectovaginal fistula and was seen at that time by Dr. Barnhart and Dr. Burgos with plan for discharge on Cipro and Flagyl and follow up as an outpatient. Patient states that she underwent a fistula repair, colon resection and colostomy placement done at [facility] and has had no further difficulties. Patient states she started with pains in her abdomen felt like heartburn was crossed her upper abdomen without up into her chest and she couldn't breathe. She described it as a squeezing type pain across her lower chest. She had a little bit of cough in the morning with white phlegm. She is taking Aleve for headache occasionally. She denies any tenderness or abdomen at this time but she did have some tenderness yesterday. Dr. 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 She is cutting down on her smoking and is at 2 cigarettes per day. She does state that 2 days ago she had difficulty with stool from her ostomy and was very thick but since there is improved. She does not have oxygen at home. She called her daughter and patient had to carry out the car and they came into [facility] emergency center with the above concerns. Temperature max was 99.0. Initial blood pressure was 190/88 and pulse ox of 94%. EKG showed no acute ST changes and a normal sinus rhythm. Her white count was normal, troponin normal. Chest x-ray showed no acute abnormality. Patient received 3 nebulizer treatments back to back and IV steroids with continued shortness of breath. Patient was admitted to the selective care unit and consult requested with Dr. Bain. Troponins will be requested and consult placed with cardiology for chest pain. Patient does not appear to be in COPD exacerbation and Solu-Medrol will be discontinued. Review of Systems All systems: negative Constitutional: Reports weakness, Denies chills, Denies fever Eyes: denies blurred vision, denies pain Ears, nose, mouth and throat: Denies headache, Denies sore throat Cardiovascular: Reports chest pain, Reports shortness of breath, Denies lightheadedness, Denies syncope Respiratory: Denies cough Gastrointestinal: Reports abdominal pain, Reports nausea, Denies diarrhea, Denies vomiting Genitourinary: Denies dysuria, Denies hematuria Musculoskeletal: Denies myalgias Integumentary: Denies pruritus, Denies rash Neurological: Denies numbness, Denies weakness Psychiatric: Denies anxiety, Denies depression Endocrine: Denies fatigue, Denies weight change Past Medical History Past Medical History: Asthma, Cancer, COPD, GERD/Reflux, Hypertension, Osteoarthritis (OA) Additional Past Medical History / Comment(s): COPD, breast cancer with left mastectomy, diverticulosis with diverticular complications and rectovaginal fistula status post fistula repair, colon resection and colostomy placement at [facility], irritable bowel syndrome, peptic ulcer disease, frequent urine checked infections, coronary artery disease with nonocclusive CAD based on the previous cardiac catheterization 2014, hypertension History of Any Multi-Drug Resistant Organisms: None Reported Past Surgical History: Bladder Surgery, Cholecystectomy, Heart Catheterization, Hysterectomy, Orthopedic Surgery Additional Past Surgical History / Comment(s): 09/21/14 cardiac cath with disease -treated medically, cataracts bilaterally, rt rotator cuff, juan m carpal tunnel, bladder suspension, rectocele repair, hemorrhoidectomy, colonoscopies, camera endoscopy, EGD, left masectomy , vaginal rectal fistula repair, bowel resection and colostomy placement Past Anesthesia/Blood Transfusion Reactions: No Reported Reaction Additional Past Anesthesia/Blood Transfusion Reaction / Comment(s): Pt is claustrophobic. Smoking Status: Current every day smoker Additional Past Alcohol Use History / Comment(s): Patient has cut back smoking to 2 cigarettes per day. - Past Family History Father Family Medical History: COPD Additional Family Medical History / Comment(s): Father is . Mother Family Medical History: CVA/TIA, Hypertension Additional Family Medical History / Comment(s): at age 91 Brother(s) Family Medical History: Cancer, Myocardial Infarction ([place]) Daughter(s) Family Medical History: No Reported History Son(s) Family Medical History: No Reported History Sister(s) Family Medical History: Cancer Medications and Allergies Home Medications Medication Instructions Recorded Confirmed Type Diphenox-Atrop 2.5-0.025 mg 1 tab PO BID PRN 09/17/14 04/29/17 History [Lomotil] Gabapentin [Neurontin] 100 mg PO BID 09/17/14 04/29/17 History ALPRAZolam [Xanax] 1 mg PO TID PRN 06/16/15 04/29/17 History Albuterol Nebulized [Ventolin 2.5 mg INHALATION RT-TID 06/16/15 04/29/17 History Nebulized] Prochlorperazine [Compazine] 10 mg PO TID PRN #30 tab 06/18/15 04/29/17 Rx Losartan Potassium [Cozaar] 50 mg PO HS 03/06/16 04/29/17 History Losartan Potassium [Cozaar] 100 mg PO QAM 03/06/16 04/29/17 History Omeprazole [PriLOSEC] 20 mg PO DAILY 03/06/16 04/29/17 History Celecoxib [CeleBREX] 200 mg PO DAILY 06/20/16 04/29/17 History Budesonide/Formoterol Fumarate 2 puff INHALATION RT-BID 11/12/16 04/29/17 History [Symbicort 160-4.5 Mcg Inhaler] Dicyclomine [Bentyl] 10 mg PO BID 11/12/16 04/29/17 History Tiotropium [place] [Spiriva] 1 cap INHALATION RT-DAILY 11/12/16 04/29/17 History Allergies Allergy/AdvReac Type Severity Reaction Status Date / Time aspirin AdvReac Nausea Verified 04/29/17 14:32 codeine AdvReac Nausea Verified 04/29/17 14:32 Iodinated Contrast- Oral and AdvReac Vomiting Verified 04/29/17 14:32 IV Dye [Iodinated Contrast Media - IV Dye] Physical Exam Vitals: Vital Signs Temp Pulse Pulse Resp BP BP Pulse Ox 04/30/17 08:30 97.4 F L 94 12 116/56 92 L 04/30/17 07:40 88 04/30/17 07:31 84 04/30/17 04:00 83 18 133/61 98 04/30/17 00:00 97.6 F 84 19 145/73 98 04/29/17 20:12 88 04/29/17 20:00 97.4 F L 91 20 137/65 97 04/29/17 19:57 86 04/29/17 17:45 96.8 F L 90 16 171/74 99 04/29/17 17:20 97.5 F L 90 18 157/66 96 04/29/17 15:57 97.8 F 90 18 158/69 96 04/29/17 14:59 97.5 F L 90 18 141/65 97 04/29/17 14:21 91 20 169/77 97 04/29/17 14:01 88 04/29/17 13:32 82 04/29/17 12:50 22 04/29/17 12:45 99.0 F 82 26 H 190/88 94 L Intake and Output 04/29/17 04/30/17 04/30/17 22:59 06:59 14:59 Intake Total 240 Balance 240 Intake: Oral 240 Other: Voiding Method Toilet Toilet # Voids 2 0 Weight 38.3 kg - Exam General appearance: no acute distress, thin - EENT Eyes: anicteric sclerae, EOMI, PERRLA, no ptosis, no scleral icterus, normal appearance ENT: hearing grossly normal, normal oropharynx, no thrush Ears: bilateral: normal - Neck Neck: no lymphadenopathy, normal ROM, no rigidity, no stridor Carotids: bilateral: upstroke delayed Thyroid: bilateral: normal size - Respiratory Respiratory: bilateral: diminished, rhonchi, wheezing, prolonged expiration, negative: dullness, rales - Cardiovascular Rhythm: regular Heart sounds: normal: S1, S2 Abnormal Heart Sounds: systolic murmur, no S3 Gallop, no S4 Gallop, no click - Gastrointestinal General gastrointestinal: normal bowel sounds, soft, no splenomegaly, no tenderness, no umbilical hernia, no ventral hernia - Integumentary Integumentary: normal, normal turgor - Neurologic Neurologic: CNII-XII intact - Musculoskeletal Musculoskeletal: strength equal bilaterally - Psychiatric Psychiatric: A&O x's 3, appropriate affect, intact judgment & insight Results CBC & Chem 7: 04/29/17 13:36 04/29/17 13:36 Labs: Abnormal Lab Results - Last 24 Hours (Table) 04/29/17 04/29/17 04/29/17 Range/Units 13:36 13:36 21:38 MCHC 30.6 L (31.0-37.0) g/dL Neutrophils # 9.4 H (1.3-7.7) k/uL Lymphocytes # 0.5 L (1.0-4.8) k/uL BUN 26 H (7-17) mg/dL POC Glucose (mg/dL) 172 H (75-99) mg/dL Total Protein 6.1 L (6.3-8.2) g/dL 04/30/17 Range/Units 05:39 MCHC (31.0-37.0) g/dL Neutrophils # (1.3-7.7) k/uL Lymphocytes # (1.0-4.8) k/uL BUN (7-17) mg/dL POC Glucose (mg/dL) 137 H (75-99) mg/dL Total Protein (6.3-8.2) g/dL Thrombosis Risk Factor Assmnt - DVT/VTE Prophylaxis DVT/VTE Prophylaxis: Pharmacologic Prophylaxis ordered - Choose All That Apply Any of the Below Risk Factors Present?: Yes Each Factor Represents 1 point: Abnormal pulmonary function (COPD) Other Risk Factors: Yes Each Risk Factor Represents 2 Points: Malignancy Each Risk Factor Represents 3 Points: Age 75 years or older Other congenital or acquired thrombophilia - If yes, enter type in comment: No Thrombosis Risk Factor Assessment Total Risk Factor Score: 6 Thrombosis Risk Factor Assessment Level: High Risk Assessment and Plan Plan: 1. Acute chest pain possibly cardiac related secondary to her underlying history of hypertension, tobacco use, possible GERD. Repeat troponins, cardiology consult. 2. COPD, not in exacerbation. Continue DuoNeb treatments, Pulmicort 1 mg twice daily, Solu-Medrol was continued, consult with Dr. Bain. 3. Recent history of rectal vaginal fistula. 4. History of coronary artery disease. Stable at this time. 5. Hypertension and hypertensive cardiovascular disease. Continue losartan 100 mg in the morning and 50 mg in the evening . 6. Hyperlipidemia. Low-cholesterol diet. 7. GERD. Continue current Protonix 40 mg orally once every day. 8. Osteoarthritis. Continue meloxicam 15 mg orally once every day. 9. Tobacco use and dependence. Smoking cessation and counseling. 10. Osteoporosis. Stable. 11. DVT prophylaxis. Start Lovenox 40 mg subcutaneously every 24 hours. 12. GI prophylaxis. On Protonix 40 mg orally once every day. 13. Inpatient. Estimated length of stay 2 days. 13. Full code. Discharge plan: Return home Impression and plan of care have been directed as dictated by the signing physician. Keren Daniels nurse practitioner acting as scribe for signing physician.
--- NOTE | 2017-04-30 14:53 | P.CRDCN ---
History of Present Illness Consult date: 04/30/17 Requesting physician: Daren España Consult reason: chest pain Chief complaint: Abdominal discomfort and chest discomfort History of present illness: This is a 76-year-old female with history of hypertension, hyperlipidemia, coronary artery disease, patient underwent a cardiac catheterization in September 2014 which revealed an ostial lesion in the diagonal branch and mild disease in the RCA. History also of hypertension, nicotine dependence, COPD, GERD. In January patient had a rectovaginal fistula repair as well as a colon resection with colostomy. She presents to the hospital on this admission with abdominal discomfort which she described as a mid abdominal burning, it radiated up into her chest causing tightness in her chest. Patient states that it was hard to breathe at that time, she called her daughter and was brought to the emergency room for further evaluation. Cagey on arrival here showed a normal sinus rhythm with ST-T wave changes in the anterior leads. Chest x-ray did not reveal any evidence for acute pulmonary disease. Blood pressure 124/60 with a heart rate in the 90s. Temperature on arrival 99.0. White blood cell count 10.5, hemoglobin 14.1, platelet count 217. Sodium 142, potassium 3.9, BUN 26, creatinine 0.7. Mag level I.8. Troponins negative 2. At the time of my examination, patient is currently free of any abdominal or chest discomfort. Past Medical History Past Medical History: Asthma, Cancer, COPD, GERD/Reflux, Hypertension, Osteoarthritis (OA) Additional Past Medical History / Comment(s): COPD, breast cancer with left mastectomy, diverticulosis with diverticular complications and rectovaginal fistula status post fistula repair, colon resection and colostomy placement at [facility], irritable bowel syndrome, peptic ulcer disease, frequent urine checked infections, coronary artery disease with nonocclusive CAD based on the previous cardiac catheterization 2014, hypertension History of Any Multi-Drug Resistant Organisms: None Reported Past Surgical History: Bladder Surgery, Cholecystectomy, Heart Catheterization, Hysterectomy, Orthopedic Surgery Additional Past Surgical History / Comment(s): 09/21/14 cardiac cath with disease -treated medically, cataracts bilaterally, rt rotator cuff, juan m carpal tunnel, bladder suspension, rectocele repair, hemorrhoidectomy, colonoscopies, camera endoscopy, EGD, left masectomy , vaginal rectal fistula repair, bowel resection and colostomy placement Past Anesthesia/Blood Transfusion Reactions: No Reported Reaction Additional Past Anesthesia/Blood Transfusion Reaction / Comment(s): Pt is claustrophobic. Smoking Status: Current every day smoker - Past Family History Father Family Medical History: COPD Additional Family Medical History / Comment(s): Father is . Mother Family Medical History: CVA/TIA, Hypertension Additional Family Medical History / Comment(s): at age 91 Brother(s) Family Medical History: Cancer, Myocardial Infarction (DC) Daughter(s) Family Medical History: No Reported History Son(s) Family Medical History: No Reported History Sister(s) Family Medical History: Cancer Medications and Allergies Home Medications Medication Instructions Recorded Confirmed Type Diphenox-Atrop 2.5-0.025 mg 1 tab PO BID PRN 09/17/14 04/29/17 History [Lomotil] Gabapentin [Neurontin] 100 mg PO BID 09/17/14 04/29/17 History ALPRAZolam [Xanax] 1 mg PO TID PRN 06/16/15 04/29/17 History Albuterol Nebulized [Ventolin 2.5 mg INHALATION RT-TID 06/16/15 04/29/17 History Nebulized] Prochlorperazine [Compazine] 10 mg PO TID PRN #30 tab 06/18/15 04/29/17 Rx Losartan Potassium [Cozaar] 50 mg PO HS 03/06/16 04/29/17 History Losartan Potassium [Cozaar] 100 mg PO QAM 03/06/16 04/29/17 History Omeprazole [PriLOSEC] 20 mg PO DAILY 03/06/16 04/29/17 History Celecoxib [CeleBREX] 200 mg PO DAILY 06/20/16 04/29/17 History Budesonide/Formoterol Fumarate 2 puff INHALATION RT-BID 11/12/16 04/29/17 History [Symbicort 160-4.5 Mcg Inhaler] Dicyclomine [Bentyl] 10 mg PO BID 11/12/16 04/29/17 History Tiotropium [place] [Spiriva] 1 cap INHALATION RT-DAILY 11/12/16 04/29/17 History Allergies Allergy/AdvReac Type Severity Reaction Status Date / Time aspirin AdvReac Nausea Verified 04/29/17 14:32 codeine AdvReac Nausea Verified 04/29/17 14:32 Iodinated Contrast- Oral and AdvReac Vomiting Verified 04/29/17 14:32 IV Dye [Iodinated Contrast Media - IV Dye] Physical Exam Vitals: Vital Signs Temp Pulse Pulse Resp BP BP Pulse Ox 04/30/17 12:20 90 12 125/62 94 L 04/30/17 11:35 92 04/30/17 11:25 92 04/30/17 08:30 97.4 F L 94 12 116/56 92 L 04/30/17 07:40 88 04/30/17 07:31 84 04/30/17 04:00 83 18 133/61 98 04/30/17 00:00 97.6 F 84 19 145/73 98 04/29/17 20:12 88 04/29/17 20:00 97.4 F L 91 20 137/65 97 04/29/17 19:57 86 04/29/17 17:45 96.8 F L 90 16 171/74 99 04/29/17 17:20 97.5 F L 90 18 157/66 96 04/29/17 15:57 97.8 F 90 18 158/69 96 04/29/17 14:59 97.5 F L 90 18 141/65 97 Intake and Output 04/29/17 04/30/17 04/30/17 22:59 06:59 14:59 Intake Total 480 Balance 480 Intake: Oral 480 Other: Voiding Method Toilet Toilet Toilet # Voids 2 0 Weight 38.3 kg 38.3 kg Patient Weight 05/01/17 06:59 Weight 38.3 kg PHYSICAL EXAMINATION: HEENT: Head is atraumatic, normocephalic. Pupils equal, round. Neck is supple. There is no elevated jugular venous pressure. HEART EXAMINATION: Heart S1 and S2 systolic ejection murmur is heard CHEST EXAMINATION:'s reveal decreased air exchange throughout ABDOMEN: Soft, nontender. Bowel sounds are heard. No organomegaly noted. EXTREMITIES: 2+ peripheral pulses with no evidence of peripheral edema and no calf tenderness noted. NEUROLOGIC patient is awake, alert and oriented -3. . Results 04/29/17 13:36 04/29/17 13:36 Cardiac Enzymes 04/30/17 Range/Units 11:28 Troponin I <0.012 (0.000-0.034) ng/mL Current Medications Generic Name Dose Route Start Last Admin Trade Name Freq PRN Reason Stop Dose Admin Albuterol/Ipratropium 3 ml 04/29/17 20:00 04/30/17 11:24 Duoneb 0.5 Mg-3 Mg/3 Ml Soln INHALATION 3 ml RT-Q4H TAYLOR Administration Alprazolam 1 mg 04/29/17 18:11 04/29/17 22:20 Xanax PO 1 mg TID PRN Administration Anxiety Budesonide 1 mg 04/29/17 20:00 04/30/17 07:25 Pulmicort INHALATION 1 mg RT-BID TAYLOR Administration Dicyclomine HCl 10 mg 04/29/17 21:00 04/30/17 08:35 Bentyl PO 10 mg BID TAYLOR Administration Diphenoxylate HCl/Atropine 1 each 04/29/17 18:11 Lomotil PO BID PRN Diarrhea Enoxaparin Sodium 40 mg 04/30/17 09:00 04/30/17 10:12 Lovenox SQ 40 mg DAILY TAYLOR Administration Gabapentin 100 mg 04/29/17 21:00 04/30/17 08:35 Neurontin PO 100 mg BID TAYLOR Administration Hydromorphone HCl 0.5 mg 04/29/17 18:09 04/29/17 22:32 Dilaudid IVP 0.5 mg Q4HR PRN Administration Pain Losartan Potassium 50 mg 04/29/17 21:00 04/29/17 20:29 Cozaar PO 50 mg HS TAYLOR Administration Losartan Potassium 100 mg 04/30/17 09:00 04/30/17 08:35 Cozaar PO 100 mg QAM TAYLOR Administration Meloxicam 7.5 mg 04/30/17 09:00 04/30/17 08:35 Mobic PO 7.5 mg DAILY TAYLOR Administration Pantoprazole Sodium 40 mg 04/30/17 07:30 04/30/17 05:57 Protonix PO 40 mg [id number] TAYLOR Administration Polyethylene Glycol 17 gm 04/30/17 09:00 04/30/17 08:34 Miralax PO 17 gm DAILY TAYLOR Administration Prochlorperazine Maleate 10 mg 04/29/17 18:11 04/29/17 22:25 Compazine PO 10 mg TID PRN Administration Nausea Intake and Output 04/29/17 04/30/17 04/30/17 22:59 06:59 14:59 Intake Total 480 Balance 480 Intake: Oral 480 Other: Voiding Method Toilet Toilet Toilet # Voids 2 0 Weight 38.3 kg 38.3 kg Patient Weight 05/01/17 06:59 Weight 38.3 kg 04/29/17 13:36 04/29/17 13:36 EKG Interpretations (text) EKG shows normal sinus rhythm with ST-T wave changes in the anterior leads. Assessment and Plan Plan: Assessment and Plan #1 abdominal discomfort, patient states she has been having some recent issues with constipation and diarrhea. #2 chest tightness, with some atypical features for acute coronary syndrome. Troponins negative 2. EKG shows normal sinus rhythm with anterior ST-T wave changes #3 COPD #4 history of rectovaginal fistula #5 coronary artery disease, cardiac catheterization performed in September 2014 revealed an ostial lesion of the diagonal branch and mild disease in the RCA. #6 hypertension #7 hyperlipidemia #8 nicotine dependence #9 GERD #10 prior colon resection with colostomy Plan We will obtain a third troponin value, we will also obtain an echocardiogram with Doppler study. Patient has not had a stress test performed since her cardiac catheterization in 2014, if the third troponin comes back negative, consider stress test in the morning. Further recommendations to follow. DNP note has been reviewed, I agree with a documented findings and plan of care. Patient was seen and examined.
[2017-04-30 17:17] LABS: Glucose,Whole Blood 128 mg/dL (75-99)
[2017-04-30] MEDS: AZITHROMYCIN 500 MG TAB PO SCH (17:31)
[2017-04-30] MEDS: methylPREDNISolone SOD SUCCI 40 MG/ML 1 ML VIAL IV SCH ×2 (17:31→22:17)
[2017-04-30] MEDS: FORMOTEROL FUMARATE 20 MCG/2 ML NEBU INHALATION SCH (20:57)
[2017-04-30 22:01] LABS: Glucose,Whole Blood 151 mg/dL (75-99)
[2017-04-30] MEDS: ALPRAZolam 0.5 MG TAB PO PRN (22:17)
[2017-05-01 00:21] VITALS: RESP 18
[2017-05-01] MEDS: IPRATROPIUM-ALBUTEROL 3 ML NEB INHALATION SCH ×3 (00:55→08:29)
[2017-05-01 02:20] LABS: Hemoglobin A1C 4.5 % (4.0-6.0)
[2017-05-01] MEDS: methylPREDNISolone SOD SUCCI 40 MG/ML 1 ML VIAL IV SCH (05:05)
[2017-05-01 06:03] LABS: Glucose,Whole Blood 134 mg/dL (75-99)
[2017-05-01] MEDS: INSULIN ASPART 100 UNIT/ML 1 ML 10 ML VIAL SQ SCH (06:24)
[2017-05-01] MEDS: PANTOPRAZOLE 40 MG TABLET PO SCH (06:38)
--- NOTE | 2017-05-01 07:52 | ECHOF ---
Referral Reason:chest pain MEASUREMENTS -------- HEIGHT: 154.9 cm WEIGHT: 38.1 kg BP: 125/92 IVSd: 1.2 cm (0.6 - 1.1) LVIDd: 3.0 cm (3.9 - 5.3) LVPWd: 1.5 cm (0.6 - 1.1) IVSs: 1.8 cm LVIDs: 2.2 cm LVPWs: 1.5 cm Ao Diam: 2.3 cm (2.0 - 3.7) AV Cusp: 1.4 cm (1.5 - 2.6) LA Diam: 1.8 cm (2.7 - 3.8) MV EXCURSION: 11.453 mm (> 18.000) MV EF SLOPE: 37 mm/s (70 - 150) EPSS: 0.3 cm MV E Kendall: 0.78 m/s MV DecT: 250 ms MV A Kendall: 0.91 m/s MV E/A Ratio: 0.86 RAP: 5.00 mmHg RVSP: 32.30 mmHg FINDINGS -------- Sinus rhythm. This was a technically good study. The left ventricular size is normal. There is moderate concentric left ventricular hypertrophy. O verall left ventricular systolic function is normal with, an EF between 55 - 60 %. The right ventricle is normal in size and function. The left atrium is normal in size. The right atrium is normal in size. Aortic valve is trileaflet and is mildly thickened. The mitral valve leaflets are mildly thickened. Mild mitral annular calcification present. There is trace mitral regurgitation. Mild tricuspid regurgitation present. The right ventricular systolic pressure, as measured by Doppl er, is 32.30mmHg. Pulmonic valve appears structurally normal. The aortic root size is normal. Normal inferior vena cava with normal inspiratory collapse consistent with estimated right atrial pre ssure of 5 mmHg. CONCLUSIONS -------- 1. Sinus rhythm. 2. This was a technically good study. 3. The left ventricular size is normal. 4. There is moderate concentric left ventricular hypertrophy. 5. Overall left ventricular systolic function is normal with, an EF between 55 - 60 %. 6. The right ventricle is normal in size and function. 7. The left atrium is normal in size. 8. The right atrium is normal in size. 9. Aortic valve is trileaflet and is mildly thickened. 10. The mitral valve leaflets are mildly thickened. 11. Mild mitral annular calcification present. 12. There is trace mitral regurgitation. 13. Mild tricuspid regurgitation present. 14. The right ventricular systolic pressure, as measured by Doppler, is 32.30mmHg. 15. Pulmonic valve appears structurally normal. 16. The aortic root size is normal. 17. Normal inferior vena cava with normal inspiratory collapse consistent with estimated right atrial pressure of 5 mmHg. SENIOR QUALITY MANAGER: Milvia Vera RDCS
[2017-05-01] MEDS: BUDESONIDE 1 MG/2 ML NEBU INHALATION SCH (08:29)
[2017-05-01] MEDS: FORMOTEROL FUMARATE 20 MCG/2 ML NEBU INHALATION SCH (08:29)
[2017-05-01] MEDS: POLYETHYLENE GLYCOL 3350 17 GM POWD.PACK PO SCH (09:10)
[2017-05-01] MEDS: AZITHROMYCIN 500 MG TAB PO SCH (10:12)
[2017-05-01] MEDS: DICYCLOMINE 10 MG CAP PO SCH (10:12)
[2017-05-01] MEDS: ENOXAPARIN 40 MG/0.4 ML SYRINGE SQ SCH (10:13)
[2017-05-01] MEDS: GABAPENTIN 100 MG CAP PO SCH (10:13)
[2017-05-01] MEDS: LOSARTAN 50 MG TAB PO SCH (10:14)
[2017-05-01] MEDS: MELOXICAM 7.5 MG TAB PO SCH (10:14)
[2017-05-01 11:33] LABS: Glucose,Whole Blood 179 mg/dL (75-99)
--- NOTE | 2017-05-01 11:47 | P.PN ---
Subjective Progress Note Date: 05/01/17 Principal diagnosis: 76-year-old with history of shortness of breath. She is well-known to Dr. Bain. She has a history of will establish and pretty severe COPD. He woke she woke up the day prior to admission with complaints of increasing shortness of breath. She also some chest tightness. No fever or chills. She did have apparently some nausea but no vomiting. She wasn't coughing up much of any phlegm just a little bit. No fever no chills. Again no vomiting or diarrhea. The patient's feeling much better now. She was admitted to the sixth floor for observation. She likely can be transferred out to the general medical floor. She is not having any additional shortness of breath at this time. She is almost at baseline. Her medical history includes COPD gastroesophageal reflux disease breast cancer hypertension DJD. She's had a previous left mastectomy and also the repair of a rectovaginal fistula. She also has a history of CAD paternal bowel syndrome urinary tract infections and diverticulosis. The patient is seen again today 05/01/2017 in follow-up on the selective care unit. She is awake and alert in no acute distress. She is breathing quite a bit better today as compared to yesterday. No significant shortness of breath, cough or congestion. She is maintaining good O2 saturations in the 90s on room air. She's been afebrile. Hemodynamically stable. She is anxious to go home. Objective - Vital Signs Vital signs: Vital Signs Temp 96.9 F L 05/01/17 08:24 Pulse 83 05/01/17 10:04 Resp 18 05/01/17 10:04 BP 140/66 05/01/17 08:24 Pulse Ox 95 05/01/17 04:00 Intake & Output 04/30/17 05/01/17 05/01/17 18:59 06:59 18:59 Intake Total 716 0 Balance 716 0 Weight 38.3 kg 38.3 kg Intake: Oral 716 0 Other: Voiding Method Toilet Toilet Toilet # Voids 1 1 2 # Bowel Movements 1 - Exam No acute distress, oriented 3. HEENT examination is grossly unremarkable. Mucous membranes are moist. No oral lesions. Neck supple. Full range of motion. No adenopathy thyromegaly or neck vein distention. Cardiovascular examination reveals regular rhythm rate. S1-S2 normal. No S3 or S4. No discernible murmur noted. Lungs reveal clear but severely diminished breath sounds. A few scattered mild rhonchi. No wheezes. There is prolongation on forced maneuver. Abdomen soft bowel sounds are heard. No masses or tenderness. Extremities are intact. No cyanosis clubbing or edema. Skin is without rash or lesion. Neurologic examination is brief but nonfocal. - Labs CBC & Chem 7: 04/29/17 13:36 04/29/17 13:36 Labs: Abnormal Lab Results - Last 24 Hours (Table) 04/30/17 04/30/17 05/01/17 Range/Units 17:14 21:09 06:02 POC Glucose (mg/dL) 128 H 151 H 134 H (75-99) mg/dL 05/01/17 Range/Units 11:31 POC Glucose (mg/dL) 179 H (75-99) mg/dL Assessment and Plan Assessment: Impression: #1 Acute exacerbation of chronic obstructive pulmonary disease, complicated by tracheobronchitis. #2 History of breast cancer status post left mastectomy. #3 Gastroesophageal reflux disease. #4 Hypertension. #5 Osteoarthritis. #6 Diverticular disease. #7 Coronary artery disease. #8 Irritable bowel syndrome. Plan: The patient was seen and evaluated by Dr. Bain. She is cleared for discharge from the pulmonary standpoint. She could be on a prednisone taper. Continue her home pulmonary medications. Complete a course of antibiotics. She'll follow-up in our office in 1-2 weeks' time. She is however encouraged to call sooner with any recurrence of symptoms or other questions or concerns. I, the cosigning physician, performed a history & physical examination of the patient. Lungs sounds are clear. Diminished. Maintaining good O2 saturations in the 90s on room air. I discussed the assessment and plan of care with my nurse practitioner, Rosi Julio. I attest to the above note as dictated by her.
[2017-05-01 12:01] VITALS: BP 150/68; PULSE 70; TEMP 98
--- NOTE | 2017-05-01 12:41 | P.DS ---
Providers Date of admission: 04/29/17 15:26 Expected date of discharge: 05/01/17 Attending physician: Daren España Consults: 04/29/17 15:26 Consult Physician Routine Consulting Provider: Kj Bain Consult Reason/Comments: COPD Do you want consulting provider notified?: Yes 04/30/17 11:06 Consult Physician Routine Consulting Provider: Brett Arriaga Consult Reason/Comments: chest pain Do you want consulting provider notified?: Yes Primary care [facility] Course: This is a 76-year-old female one of Dr. Alejandro with a previous medical history significant for coronary artery disease status post left heart catheterization with the left heart catheterization that was done in September 2014 that showed ostial lesion of the diagonal branch and mild disease of the RCA, normal ejection fraction, hypertension and hypertensive cardiovascular disease with left ventricular hypertrophy, chronic tobacco use and dependence with chronic obstructive pulmonary disease, GERD. She had a recent hospitalization in January 2017 for a rectovaginal fistula and was seen at that time by Dr. Barnhart and Dr. Burgos with plan for discharge on Cipro and Flagyl and follow up as an outpatient. Patient states that she underwent a fistula repair, colon resection and colostomy placement done at [facility] and has had no further difficulties. Patient states she started with pains in her abdomen felt like heartburn was crossed her upper abdomen without up into her chest and she couldn't breathe. She described it as a squeezing type pain across her lower chest. She had a little bit of cough in the morning with white phlegm. She is taking Aleve for headache occasionally. She denies any tenderness or abdomen at this time but she did have some tenderness yesterday. Dr. Arriaga is her spine specialist and she last saw him prior to her surgery. She is cutting down on her smoking and is at 2 cigarettes per day. She does state that 2 days ago she had difficulty with stool from her ostomy and was very thick but since there is improved. She does not have oxygen at home. She called her daughter and patient had to carry out the car and they came into [facility] emergency center with the above concerns. Temperature max was 99.0. Initial blood pressure was 190/88 and pulse ox of 94%. EKG showed no acute ST changes and a normal sinus rhythm. Her white count was normal, troponin normal. Chest x-ray showed no acute abnormality. Patient received 3 nebulizer treatments back to back and IV steroids with continued shortness of breath. Patient was admitted to the selective care unit and consult requested with Dr. Bain. Troponins will be requested and consult placed with cardiology for chest pain. Patient does not appear to be in COPD exacerbation and Solu-Medrol will be discontinued. 05/01: She has been seen by cardiology and troponins have been negative on 3 draws. Cardiology does not plan for any further workup. Patient cleared for discharge home. Echocardiogram reveals EF of 55-60% with moderate concentric left ventricular hypertrophy, mild mitral calcification, trace mitral regurgitation, mild tricuspid regurgitation. She will be discharged home today in stable condition. Discharge diagnoses: 1. Acute chest pain possibly secondary to GERD. 2. COPD, not in exacerbation. 3. Recent history of rectovaginal fistula. 4. History of coronary artery disease. 5. Hypertension and hypertensive cardiovascular disease. 6. Hyperlipidemia. 7. GERD. 8. Osteoarthritis. 9. Tobacco use and dependence. 10. Osteoporosis. Stable. Discharge plan: Return home Impression and plan of care have been directed as dictated by the signing physician. Keren Daniels nurse practitioner acting as scribe for signing physician. Patient Condition at Discharge: Good Plan - Discharge Summary Discharge Rx Participant: No New Discharge Prescriptions: New Polyethylene Glycol 3350 [Miralax] 17 gm PO DAILY powd.pack Continue Diphenox-Atrop 2.5-0.025 mg [Lomotil] 1 tab PO BID PRN PRN Reason: Diarrhea Gabapentin [Neurontin] 100 mg PO BID ALPRAZolam [Xanax] 1 mg PO TID PRN PRN Reason: Anxiety Albuterol Nebulized [Ventolin Nebulized] 2.5 mg INHALATION RT-TID Prochlorperazine [Compazine] 10 mg PO TID PRN #30 tab PRN Reason: Nausea Omeprazole [PriLOSEC] 20 mg PO DAILY Losartan Potassium [Cozaar] 100 mg PO QAM Losartan Potassium [Cozaar] 50 mg PO HS Celecoxib [CeleBREX] 200 mg PO DAILY Budesonide/Formoterol Fumarate [Symbicort 160-4.5 Mcg Inhaler] 2 puff INHALATION RT-BID Dicyclomine [Bentyl] 10 mg PO BID Tiotropium [place] [Spiriva] 1 cap INHALATION RT-DAILY Discharge Medication List Diphenox-Atrop 2.5-0.025 mg [Lomotil] 1 tab PO BID PRN 09/17/14 [History] Gabapentin [Neurontin] 100 mg PO BID 09/17/14 [History] ALPRAZolam [Xanax] 1 mg PO TID PRN 06/16/15 [History] Albuterol Nebulized [Ventolin Nebulized] 2.5 mg INHALATION RT-TID 06/16/15 [ History] Prochlorperazine [Compazine] 10 mg PO TID PRN #30 tab 06/18/15 [Rx] Losartan Potassium [Cozaar] 50 mg PO HS 03/06/16 [History] Losartan Potassium [Cozaar] 100 mg PO QAM 03/06/16 [History] Omeprazole [PriLOSEC] 20 mg PO DAILY 03/06/16 [History] Celecoxib [CeleBREX] 200 mg PO DAILY 06/20/16 [History] Budesonide/Formoterol Fumarate [Symbicort 160-4.5 Mcg Inhaler] 2 puff INHALATION RT-BID 11/12/16 [History] Dicyclomine [Bentyl] 10 mg PO BID 11/12/16 [History] Tiotropium [place] [Spiriva] 1 cap INHALATION RT-DAILY 11/12/16 [History] Polyethylene Glycol 3350 [Miralax] 17 gm PO DAILY powd.pack 05/01/17 [Rx] Follow up Appointment(s)/Referral(s): Brett Arriaga MD [STAFF PHYSICIAN] - 3 Weeks (Office will call with follow up appointment.) Kj Bain DO [Doctor of Osteopathic Medicine] - 05/14/17 9:45 am () Alvin Alejandro DO [Primary Care Provider] - 1 Week (Office will call you with follow up date, will eventually cancel previous appointment made on May. ) Patient Instructions/Handouts: COPD (Chronic Obstructive Pulmonary Disease) (DC )
--- NOTE | 2017-05-01 15:43 | P.PN ---
Subjective Progress Note Date: 05/01/17 This is a 76-year-old female with history of hypertension, hyperlipidemia, coronary artery disease, patient underwent a cardiac catheterization in September 2014 which revealed an ostial lesion in the diagonal branch and mild disease in the RCA. History also of hypertension, nicotine dependence, COPD, GERD. In January patient had a rectovaginal fistula repair as well as a colon resection with colostomy. She presents to the hospital on this admission with abdominal discomfort which she described as a mid abdominal burning, it radiated up into her chest causing tightness in her chest. Patient states that it was hard to breathe at that time, she called her daughter and was brought to the emergency room for further evaluation. Cagey on arrival here showed a normal sinus rhythm with ST-T wave changes in the anterior leads. Chest x-ray did not reveal any evidence for acute pulmonary disease. Blood pressure 124/60 with a heart rate in the 90s. Temperature on arrival 99.0. White blood cell count 10.5, hemoglobin 14.1, platelet count 217. Sodium 142, potassium 3.9, BUN 26, creatinine 0.7. Mag level I.8. Troponins negative 2. At the time of my examination, patient is currently free of any abdominal or chest discomfort. 05/01/2017 Seen and examined this morning, feels well, denies any further abdominal discomfort, no chest discomfort. Echocardiogram with Doppler study was performed which revealed a normal left ventricular systolic function. From cardiology's perspective, patient may be able to be discharged home if cleared by the primary. We'll make her a follow-up appointment to see Dr. Arriaga in the office post discharge. Objective - Vital Signs Vital signs: Vital Signs Temp 98.0 F 05/01/17 11:53 Pulse 70 05/01/17 11:53 Resp 18 05/01/17 11:53 BP 150/68 05/01/17 11:53 Pulse Ox 95 05/01/17 04:00 Intake & Output 04/30/17 05/01/17 05/01/17 18:59 06:59 18:59 Intake Total 716 0 Balance 716 0 Weight 38.3 kg 38.3 kg Intake: Oral 716 0 Other: Voiding Method Toilet Toilet Toilet # Voids 1 1 2 # Bowel Movements 1 - Exam PHYSICAL EXAMINATION: HEENT: Head is atraumatic, normocephalic. Pupils equal, round. Neck is supple. There is no elevated jugular venous pressure. HEART EXAMINATION: Heart S1 and S2 systolic ejection murmur is heard CHEST EXAMINATION:'s reveal decreased air exchange throughout ABDOMEN: Soft, nontender. Bowel sounds are heard. No organomegaly noted. EXTREMITIES: 2+ peripheral pulses with no evidence of peripheral edema and no calf tenderness noted. NEUROLOGIC patient is awake, alert and oriented -3. - Labs CBC & Chem 7: 04/29/17 13:36 04/29/17 13:36 Labs: Abnormal Lab Results - Last 24 Hours (Table) 04/30/17 04/30/17 05/01/17 Range/Units 17:14 21:09 06:02 POC Glucose (mg/dL) 128 H 151 H 134 H (75-99) mg/dL 05/01/17 Range/Units 11:31 POC Glucose (mg/dL) 179 H (75-99) mg/dL Assessment and Plan Plan: Assessment and Plan #1 abdominal discomfort, patient states she has been having some recent issues with constipation and diarrhea. #2 chest tightness, with some atypical features for acute coronary syndrome. Troponins negative 2. EKG shows normal sinus rhythm with anterior ST-T wave changes #3 COPD #4 history of rectovaginal fistula #5 coronary artery disease, cardiac catheterization performed in September 2014 revealed an ostial lesion of the diagonal branch and mild disease in the RCA. #6 hypertension #7 hyperlipidemia #8 nicotine dependence #9 GERD #10 prior colon resection with colostomy Plan Owns were negative 3, echo revealed normal left ventricular systolic function. From cardiology's perspective, patient may be able to be discharged home once cleared by the primary. We will make her a follow-up appointment to see Dr. Arriaga in the office post discharge. DNP note has been reviewed, I agree with a documented findings and plan of care. Patient was seen and examined.
== END 2017-05-01 13:06 | disposition home or self-care (01) | DRG 392 ==
LOC: EC 12:39 → 6SEL 15:26
PROVIDERS: ADMIT Internal Medicine; ATTEND Internal Medicine
DX: K21.9 Gastro-esophageal reflux disease without esophagitis (principal); J44.9 Chronic obstructive pulmonary disease, unspecified; I11.9 Hypertensive heart disease without heart failure; E78.5 Hyperlipidemia, unspecified; R07.9 Chest pain, unspecified; F17.210 Nicotine dependence, cigarettes, uncomplicated; F40.240 Claustrophobia; I25.10 Atherosclerotic heart disease of native coronary artery without angina pectoris; K57.90 Diverticulosis of intestine, part unspecified, without perforation or abscess without bleeding; K58.9 Irritable bowel syndrome, unspecified; M19.90 Unspecified osteoarthritis, unspecified site; M81.0 Age-related osteoporosis without current pathological fracture; F41.9 Anxiety disorder, unspecified; R10.9 Unspecified abdominal pain; Z79.51 Long term (current) use of inhaled steroids; Z79.899 Other long term (current) drug therapy; Z88.5 Allergy status to narcotic agent; Z88.6 Allergy status to analgesic agent; Z91.041 Radiographic dye allergy status; Z93.3 Colostomy status; Z90.710 Acquired absence of both cervix and uterus; Z90.49 Acquired absence of other specified parts of digestive tract; Z90.12 Acquired absence of left breast and nipple; Z87.440 Personal history of urinary (tract) infections; Z85.3 Personal history of malignant neoplasm of breast; Z82.49 Family history of ischemic heart disease and other diseases of the circulatory system
CPT/HCPCS: 36415; 71046; 80053; 82550; 82553; 83036; 83735; 84484; 85025; 85610; 85730; 93005; 93306; 94640; 94644; 94760; 96374; 96375; 99291

== ENCOUNTER 2017-06-04 14:27 | Inpatient (IN) | payer MEDICARE ==
[2017-06-04] MEDS ORDERED: ALBUTEROL NEBULIZED 2.5 MG/3 ML INHALATION STA ×2 (14:58→17:00)
[2017-06-04] MEDS ORDERED: IPRATROPIUM 0.5 MG/2.5 ML NEBU INHALATION STA (14:58)
[2017-06-04] MEDS ORDERED: methylPREDNISolone SOD SUCCI 125 MG/2 ML VIAL IV STA (14:58)
[2017-06-04 15:24] LABS: Basophils # (A) 0.1 k/uL (0-0.2); Basophils % (A) 1 %; Eosinophils # (A) 0.1 k/uL (0-0.7); Eosinophils % (A) 1 %; HCT 45.7 % (34.0-46.0); HGB 14.3 gm/dL (11.4-16.0); Lymphocytes # (A) 1.2 k/uL (1.0-4.8); Lymphocytes % (A) 12 %; MCH 27.6 pg (25.0-35.0); MCHC 31.3 g/dL (31.0-37.0); MCV 88.2 fL (80.0-100.0); Mean Platelet Volume 6.6; Monocytes # (A) 0.7 k/uL (0-1.0); Monocytes % (A) 8 %; Neutrophils # (A) 7.3 k/uL (1.3-7.7); Neutrophils % (A) 77 %; Platelet Count 231 k/uL (150-450); RBC 5.18 m/uL (3.80-5.40); RDW 13.3 % (11.5-15.5); WBC 9.5 k/uL (3.8-10.6)
[2017-06-04 15:33] LABS: ALT 24 U/L (9-52); AST 28 U/L (14-36); Albumin 3.9 g/dL (3.5-5.0); Alkaline Phosphatase 97 U/L (38-126); Anion Gap 10 mmol/L; Blood Urea Nitrogen 22 mg/dL (7-17); Calcium 10.2 mg/dL (8.4-10.2); Carbon Dioxide 28 mmol/L (22-30); Chloride 105 mmol/L (98-107); Glucose 86 mg/dL (74-99); Potassium 3.8 mmol/L (3.5-5.1); Sodium 143 mmol/L (137-145); Total Bilirubin 0.4 mg/dL (0.2-1.3); Total Protein 6.7 g/dL (6.3-8.2)
[2017-06-04 15:39] LABS: Creatine Kinase 329 U/L (30-135)
--- NOTE | 2017-06-04 15:39 | ED ---
General Adult HPI - General Chief complaint: Shortness of Breath Stated complaint: JADE Time Seen by Provider: 06/04/17 14:49 Source: patient, RN notes reviewed, old records reviewed Mode of arrival: wheelchair Limitations: no limitations - History of Present Illness Initial comments: 76-year-old female history of COPD presents with 4 days of worsening cough and dyspnea. Patient was evaluated by her primary care physician, she was encouraged to present to the emergency department for further evaluation. She states she has had productive cough of yellow sputum. Denies fever or chills. Denies central chest pain. She does have some chest tightness associated with her dyspnea. Patient is currently not on home oxygen. Denies any lower extremity swelling or calf tenderness. Denies nausea vomiting or diarrhea. - Related Data Home Medications Medication Instructions Recorded Confirmed Gabapentin [Neurontin] 100 mg PO BID 09/17/14 06/04/17 ALPRAZolam [Xanax] 1 mg PO TID PRN 06/16/15 06/04/17 Albuterol Nebulized [Ventolin 2.5 mg INHALATION RT-TID 06/16/15 06/04/17 Nebulized] Losartan Potassium [Cozaar] 50 mg PO HS 03/06/16 06/04/17 Losartan Potassium [Cozaar] 100 mg PO QAM 03/06/16 06/04/17 Omeprazole [PriLOSEC] 20 mg PO DAILY 03/06/16 06/04/17 Celecoxib [CeleBREX] 200 mg PO DAILY 06/20/16 06/04/17 Budesonide/Formoterol Fumarate 2 puff INHALATION RT-BID 11/12/16 06/04/17 [Symbicort 160-4.5 Mcg Inhaler] Dicyclomine [Bentyl] 10 mg PO BID 11/12/16 06/04/17 Tiotropium [place] [Spiriva] 1 cap INHALATION RT-DAILY 11/12/16 06/04/17 Previous Rx's Medication Instructions Recorded Prochlorperazine [Compazine] 10 mg PO TID PRN #30 tab 06/18/15 Allergies Allergy/AdvReac Type Severity Reaction Status Date / Time aspirin AdvReac Nausea Verified 06/04/17 15:15 codeine AdvReac Nausea Verified 06/04/17 15:15 Iodinated Contrast- Oral and AdvReac Vomiting Verified 06/04/17 15:15 IV Dye [Iodinated Contrast Media - IV Dye] Review of Systems ROS Statement: Those systems with pertinent positive or pertinent negative responses have been documented in the HPI. ROS Other: All systems not noted in ROS Statement are negative. Past Medical History Past Medical History: Asthma, Cancer, COPD, GERD/Reflux, Hypertension, Osteoarthritis (OA) Additional Past Medical History / Comment(s): COPD, breast cancer with left mastectomy, diverticulosis with diverticular complications and rectovaginal fistula status post fistula repair, colon resection and colostomy placement at [facility], irritable bowel syndrome, peptic ulcer disease, frequent urine checked infections, coronary artery disease with nonocclusive CAD based on the previous cardiac catheterization 2014, hypertension History of Any Multi-Drug Resistant Organisms: None Reported Past Surgical History: Bladder Surgery, Cholecystectomy, Heart Catheterization, Hysterectomy, Orthopedic Surgery Additional Past Surgical History / Comment(s): 09/21/14 cardiac cath with disease -treated medically, cataracts bilaterally, rt rotator cuff, juan m carpal tunnel, bladder suspension, rectocele repair, hemorrhoidectomy, colonoscopies, camera endoscopy, EGD, left masectomy , vaginal rectal fistula repair, bowel resection and colostomy placement Past Anesthesia/Blood Transfusion Reactions: No Reported Reaction Additional Past Anesthesia/Blood Transfusion Reaction / Comment(s): Pt is claustrophobic. Past Psychological History: Anxiety Smoking Status: Former smoker Past Alcohol Use History: None Reported Past Drug Use History: None Reported - Past Family History Father Family Medical History: COPD Additional Family Medical History / Comment(s): Father is . Mother Family Medical History: CVA/TIA, Hypertension Additional Family Medical History / Comment(s): at age 91 Brother(s) Family Medical History: Cancer, Myocardial Infarction ([place]) Daughter(s) Family Medical History: No Reported History Son(s) Family Medical History: No Reported History Sister(s) Family Medical History: Cancer General Exam Limitations: no limitations General appearance: alert, in distress Head exam: Present: atraumatic, normocephalic Eye exam: Present: normal appearance, PERRL Neck exam: Present: normal inspection. Absent: tenderness, meningismus Respiratory exam: Present: respiratory distress, wheezes, accessory muscle use, decreased breath sounds, prolonged expiratory Cardiovascular Exam: Present: regular rate, normal rhythm GI/Abdominal exam: Present: soft. Absent: distended, tenderness Extremities exam: Present: normal inspection, normal capillary refill. Absent: calf tenderness Neurological exam: Present: alert, oriented X3, CN II-XII intact. Absent: motor sensory deficit Psychiatric exam: Present: normal affect, normal mood Skin exam: Present: warm, dry, intact. Absent: cyanosis, diaphoretic Course Vital Signs 06/04/17 06/04/17 06/04/17 14:30 15:00 15:05 Temperature 97.1 F L Pulse Rate 107 H 90 Respiratory 24 26 H Rate Blood Pressure 214/91 O2 Sat by Pulse 95 Oximetry 06/04/17 06/04/17 06/04/17 15:10 15:21 15:35 Temperature Pulse Rate 89 96 97 Respiratory 24 Rate Blood Pressure 199/93 O2 Sat by Pulse 95 Oximetry 06/04/17 06/04/17 06/04/17 15:53 16:12 16:28 Temperature Pulse Rate 100 92 98 Respiratory 23 18 Rate Blood Pressure 205/97 195/100 O2 Sat by Pulse 97 96 Oximetry 06/04/17 16:39 Temperature Pulse Rate 96 Respiratory 20 Rate Blood Pressure 174/77 O2 Sat by Pulse 96 Oximetry EKG Findings - EKG Comments: EKG Findings:: EKG shows sinus rhythm with short MN interval, ventricular rate 92, MN interval 108, QS duration 88 QTC 4:[address] segment elevation or depression. Medical Decision Making - Medical Decision Making 76-year-old female presenting with cough and worsening dyspnea over the past several days. On examination, patient has decreased air entry, and expiratory wheeze. She is in moderate respiratory distress. She is given albuterol, Atrovent, and steroids in the emergency department. Reevaluation, she does have some improved air entry but remains dyspneic. She is requiring supplemental oxygen. Laboratory studies are obtained, normal white blood cell count, stable hemoglobin 14.3. Lactate normal limits. Troponin and BNP are negative. Chest x-ray negative for focal pneumonia, there is hyperinflation consistent with COPD Patient will be admitted for further treatment and evaluation of COPD exacerbation. Pulmonology placed on consult. - Lab Data Result diagrams: 06/04/17 15:03 06/04/17 15:03 Lab Results 02/20/18 02/20/18 02/20/18 Range/Units 15:03 15:03 15:03 WBC 9.5 (3.8-10.6) k/uL RBC 5.18 (3.80-5.40) m/uL Hgb 14.3 (11.4-16.0) gm/dL Hct 45.7 (34.0-46.0) % MCV 88.2 (80.0-100.0) fL MCH 27.6 (25.0-35.0) pg MCHC 31.3 (31.0-37.0) g/dL RDW 13.3 (11.5-15.5) % Plt Count 231 (150-450) k/uL Neutrophils % 77 % Lymphocytes % 12 % Monocytes % 8 % Eosinophils % 1 % Basophils % 1 % Neutrophils # 7.3 (1.3-7.7) k/uL Lymphocytes # 1.2 (1.0-4.8) k/uL Monocytes # 0.7 (0-1.0) k/uL Eosinophils # 0.1 (0-0.7) k/uL Basophils # 0.1 (0-0.2) k/uL PT (9.0-12.0) sec INR (<1.2) APTT (22.0-30.0) sec Sodium 143 (137-145) mmol/L Potassium 3.8 (3.5-5.1) mmol/L Chloride 105 (98-107) mmol/L Carbon Dioxide 28 (22-30) mmol/L Anion Gap 10 mmol/L BUN 22 H (7-17) mg/dL Creatinine 0.67 (0.52-1.04) mg/dL Est GFR (MDRD) Af Amer >60 (>60 ml/min/1.73 sqM) Est GFR (MDRD) Non-Af >60 (>60 ml/min/1.73 sqM) Glucose 86 (74-99) mg/dL Calcium 10.2 (8.4-10.2) mg/dL Magnesium 2.0 (1.6-2.3) mg/dL Total Bilirubin 0.4 (0.2-1.3) mg/dL AST 28 (14-36) U/L ALT 24 (9-52) U/L Alkaline Phosphatase 97 (38-126) U/L Total Creatine Kinase 329 H (30-135) U/L CK-MB (CK-2) 4.1 H* (0.0-2.4) ng/mL CK-MB (CK-2) Rel Index 1.2 Troponin I <0.012 (0.000-0.034) ng/mL NT-Pro-B Natriuret Pep pg/mL Total Protein 6.7 (6.3-8.2) g/dL Albumin 3.9 (3.5-5.0) g/dL 06/04/17 06/04/17 Range/Units 15:03 15:03 WBC (3.8-10.6) k/uL RBC (3.80-5.40) m/uL Hgb (11.4-16.0) gm/dL Hct (34.0-46.0) % MCV (80.0-100.0) fL MCH (25.0-35.0) pg MCHC (31.0-37.0) g/dL RDW (11.5-15.5) % Plt Count (150-450) k/uL Neutrophils % % Lymphocytes % % Monocytes % % Eosinophils % % Basophils % % Neutrophils # (1.3-7.7) k/uL Lymphocytes # (1.0-4.8) k/uL Monocytes # (0-1.0) k/uL Eosinophils # (0-0.7) k/uL Basophils # (0-0.2) k/uL PT 9.9 (9.0-12.0) sec INR 1.0 (<1.2) APTT 23.9 (22.0-30.0) sec Sodium (137-145) mmol/L Potassium (3.5-5.1) mmol/L Chloride (98-107) mmol/L Carbon Dioxide (22-30) mmol/L Anion Gap mmol/L BUN (7-17) mg/dL Creatinine (0.52-1.04) mg/dL Est GFR (MDRD) Af Amer (>60 ml/min/1.73 sqM) Est GFR (MDRD) Non-Af (>60 ml/min/1.73 sqM) Glucose (74-99) mg/dL Calcium (8.4-10.2) mg/dL Magnesium (1.6-2.3) mg/dL Total Bilirubin (0.2-1.3) mg/dL AST (14-36) U/L ALT (9-52) U/L Alkaline Phosphatase (38-126) U/L Total Creatine Kinase (30-135) U/L CK-MB (CK-2) (0.0-2.4) ng/mL CK-MB (CK-2) Rel Index Troponin I (0.000-0.034) ng/mL NT-Pro-B Natriuret Pep 358 pg/mL Total Protein (6.3-8.2) g/dL Albumin (3.5-5.0) g/dL Critical Care Time Critical Care Time: Yes Total Critical Care Time: 35 Disposition Clinical Impression: COPD with acute exacerbation Disposition: ADMITTED IP TO THIS [facility] Condition: Serious Referrals: Alvin Alejandro DO [Primary Care Provider] - 1-2 days Decision to Admit Reason: Admit from EC Decision Date: 06/04/17 Decision Time: 16:43
[2017-06-04 15:41] LABS: Partial Thromboplastin Time 23.9 sec (22.0-30.0); Prothrombin Time 9.9 sec (9.0-12.0)
[2017-06-04] MEDS ORDERED: SODIUM CHLORIDE 0.9% 500 ML IV ONE (15:50)
[2017-06-04 15:52] LABS: Troponin I <0.012 ng/mL (0.000-0.034)
[2017-06-04] MEDS: SODIUM CHLORIDE 0.9% 1,000 ML IV SCH ×2 (15:53→23:37)
[2017-06-04 15:54] LABS: Creatine Kinase MB 4.1 ng/mL (0.0-2.4)
--- NOTE | 2017-06-04 16:14 | XR ---
EXAMINATION TYPE: XR chest 2V DATE OF EXAM: 06/04/2017 COMPARISON: 04/29/2017 HISTORY: Shortness of breath with history of COPD TECHNIQUE: Frontal and lateral views of the chest are obtained. FINDINGS: There is no focal air space opacity, pleural effusion, or pneumothorax seen. There is pulm onary hyperinflation and flattening of the diaphragms compatible with patient's known history of unde rlying COPD. The cardiac silhouette size is within normal limits. The osseous structures are intact . Left axillary and left breast surgical clips are noted. IMPRESSION: No acute cardiopulmonary process. Radiographic sequela of COPD.
[2017-06-04] MEDS ORDERED: KETOROLAC 30 MG/ML 1 ML VIAL IVP STA (16:18)
[2017-06-04] MEDS ORDERED: hydrALAZINE HCL 20 MG/ML 1 ML VIAL IVP STA (16:28)
[2017-06-04] MEDS ORDERED: ALBUTEROL NEBULIZED 2.5 MG/3 ML INHALATION PRN (16:39)
[2017-06-04] MEDS ORDERED: MAGNESIUM SULFATE-D5W PMX 1 GM in DEXTROSE/WATER 1 100ML.BAG IVPB STA (16:54)
[2017-06-04] MEDS: IPRATROPIUM-ALBUTEROL 3 ML NEB INHALATION SCH (20:49)
[2017-06-04] MEDS: GABAPENTIN 100 MG CAP PO SCH (22:13)
[2017-06-04] MEDS: LOSARTAN 50 MG TAB PO SCH (22:13)
[2017-06-04] MEDS: methylPREDNISolone SOD SUCCI 125 MG/2 ML VIAL IV SCH (23:37)
[2017-06-05] MEDS: IPRATROPIUM-ALBUTEROL 3 ML NEB INHALATION PRN ×3 (00:38→23:44)
[2017-06-05] MEDS: methylPREDNISolone SOD SUCCI 125 MG/2 ML VIAL IV SCH ×3 (06:29→16:38)
[2017-06-05 06:31] LABS: Glucose,Whole Blood 103 mg/dL (75-99)
[2017-06-05] MEDS: IPRATROPIUM-ALBUTEROL 3 ML NEB INHALATION SCH ×4 (07:02→20:34)
[2017-06-05] MEDS ORDERED: PROCHLORPERAZINE 10 MG TAB PO PRN (07:54)
[2017-06-05] MEDS ORDERED: MAGNESIUM CITRATE 296 ML BOTTLE PO PRN (08:28)
[2017-06-05] MEDS: INSULIN ASPART 100 UNIT/ML 1 ML 10 ML VIAL SQ SCH ×4 (08:29→22:23)
[2017-06-05] MEDS: AZITHROMYCIN 500 MG TAB PO SCH (08:34)
[2017-06-05] MEDS: GABAPENTIN 100 MG CAP PO SCH ×2 (08:35→21:05)
[2017-06-05] MEDS: PANTOPRAZOLE 40 MG TABLET PO SCH (08:35)
[2017-06-05] MEDS: DICYCLOMINE 10 MG CAP PO SCH ×2 (08:35→21:05)
[2017-06-05] MEDS: MELOXICAM 7.5 MG TAB PO SCH (08:36)
[2017-06-05] MEDS: LOSARTAN 50 MG TAB PO SCH ×2 (08:52→21:05)
[2017-06-05] MEDS: HEPARIN SODIUM,PORCINE 5,000 UNIT/ML 1 ML VIAL SQ SCH ×2 (08:52→22:22)
[2017-06-05] MEDS ORDERED: PSYLLIUM HUSK 100% 6 GM PACKET PO SCH (10:15)
--- NOTE | 2017-06-05 10:28 | P.HPIM ---
History of Present Illness H&P Date: 06/05/17 This is a 76-year-old female one of Dr. Alejandro with a previous medical history significant for coronary artery disease status post left heart catheterization with the left heart catheterization that was done in September 2014 that showed ostial lesion of the diagonal branch and mild disease of the RCA, normal ejection fraction, hypertension and hypertensive cardiovascular disease with left ventricular hypertrophy, chronic tobacco use and dependence with chronic obstructive pulmonary disease, GERD. She had a recent hospitalization in January 2017 for a rectovaginal fistula and was seen at that time by Dr. Barnhart and Dr. Burgos with plan for discharge on Cipro and Flagyl and follow up as an outpatient. Patient states that she underwent a fistula repair, colon resection and colostomy placement done at [facility] and has had no further difficulties but takes Metamucil daily to avoid constipation. She was most recently admitted in April for chest pain secondary to GERD. Patient complains of shortness of breath that has been going on for the past 4 days along with cough with yellow sputum. No fever or chills. No chest pain. Patient is not home O2 dependent. She does have nebulizer at home. She lives independently and her daughter helps with grocery shopping. Patient came into [facility] emergency center with the above concerns. She was afebrile but hypertensive. EKG was a sinus rhythm with no acute ST changes. White count was normal, electrolytes were within normal limits as well as kidney function. Hemoglobin 14.3. Lactic acid was within normal limits as well as troponin and BNP. Chest x-ray revealed no acute cardiopulmonary process. Radiographic sequela of COPD. Patient was given supplemental oxygen and nebulizer treatment and continued to have some dyspnea for which she was admitted to the hospital, continued on DuoNeb treatments, Solu -Medrol IV, azithromycin and Symbicort and a consult was requested with Dr. Baker. Review of Systems All systems: negative Constitutional: Reports fatigue, Reports poor appetite, Reports weakness, Denies anorexia, Denies chills, Denies fever, Denies weight loss Eyes: denies blurred vision, denies pain Ears, nose, mouth and throat: Denies dental pain, Denies headache, Denies mouth pain, Denies sore throat Cardiovascular: Reports decreased exercise tolerance, Reports dyspnea on exertion, Reports shortness of breath, Denies chest pain, Denies edema, Denies leg edema, Denies lightheadedness, Denies syncope Respiratory: Reports cough, Reports cough with sputum, Reports dyspnea, Denies excessive sputum, Denies hemoptysis, Denies home oxygen Gastrointestinal: Denies abdominal pain, Denies diarrhea, Denies nausea, Denies vomiting Genitourinary: Denies dysuria, Denies hematuria Musculoskeletal: Denies myalgias Integumentary: Denies pruritus, Denies rash Neurological: Denies numbness, Denies weakness Psychiatric: Denies anxiety, Denies depression Endocrine: Denies fatigue, Denies weight change Past Medical History Past Medical History: Asthma, Cancer, COPD, GERD/Reflux, Hypertension, Osteoarthritis (OA) Additional Past Medical History / Comment(s): COPD, breast cancer with left mastectomy, diverticulosis with diverticular complications and rectovaginal fistula status post fistula repair, colon resection and colostomy placement at [facility], irritable bowel syndrome, peptic ulcer disease, frequent urine checked infections, coronary artery disease with nonocclusive CAD based on the previous cardiac catheterization 2014, hypertension History of Any Multi-Drug Resistant Organisms: None Reported Past Surgical History: Bladder Surgery, Cholecystectomy, Heart Catheterization, Hysterectomy, Orthopedic Surgery Additional Past Surgical History / Comment(s): 09/21/14 cardiac cath with disease -treated medically, cataracts bilaterally, rt rotator cuff, juan m carpal tunnel, bladder suspension, rectocele repair, hemorrhoidectomy, colonoscopies, camera endoscopy, EGD, left masectomy , vaginal rectal fistula repair, bowel resection and colostomy placement Past Anesthesia/Blood Transfusion Reactions: No Reported Reaction Additional Past Anesthesia/Blood Transfusion Reaction / Comment(s): Pt is claustrophobic. Past Psychological History: Anxiety Additional Psychological History / Comment(s): Pt resides at [facility]. She is independent. She uses no assistive device. She drives. She has a nebulizer. She does not have 02. Her daughter does the grocery shopping. She has a little anxiety which she occasionally uses xanax with good results. She is claustrophobic. Smoking Status: Former smoker Past Alcohol Use History: None Reported Additional Past Alcohol Use History / Comment(s): PT QUIT SMOKING ONE MONTH AGO. STATES SHE ONLY SMOKED 2 CIGARETTES A DAY WITH HER COFFEE AT THAT TIME. Past Drug Use History: None Reported - Past Family History Father Family Medical History: COPD Additional Family Medical History / Comment(s): Father is . Mother Family Medical History: CVA/TIA, Hypertension Additional Family Medical History / Comment(s): at age 91 Brother(s) Family Medical History: Cancer, Myocardial Infarction ([place]) Daughter(s) Family Medical History: No Reported History Son(s) Family Medical History: No Reported History Sister(s) Family Medical History: Cancer Medications and Allergies Home Medications Medication Instructions Recorded Confirmed Type Gabapentin [Neurontin] 100 mg PO BID 09/17/14 06/04/17 History ALPRAZolam [Xanax] 1 mg PO TID PRN 06/16/15 06/04/17 History Albuterol Nebulized [Ventolin 2.5 mg INHALATION RT-TID 06/16/15 06/04/17 History Nebulized] Prochlorperazine [Compazine] 10 mg PO TID PRN #30 tab 06/18/15 06/04/17 Rx Losartan Potassium [Cozaar] 50 mg PO HS 03/06/16 06/04/17 History Losartan Potassium [Cozaar] 100 mg PO QAM 03/06/16 06/04/17 History Omeprazole [PriLOSEC] 20 mg PO DAILY 03/06/16 06/04/17 History Celecoxib [CeleBREX] 200 mg PO DAILY 06/20/16 06/04/17 History Budesonide/Formoterol Fumarate 2 puff INHALATION RT-BID 11/12/16 06/04/17 History [Symbicort 160-4.5 Mcg Inhaler] Dicyclomine [Bentyl] 10 mg PO BID 11/12/16 06/04/17 History Tiotropium [place] [Spiriva] 1 cap INHALATION RT-DAILY 11/12/16 06/04/17 History Allergies Allergy/AdvReac Type Severity Reaction Status Date / Time aspirin AdvReac Nausea Verified 06/04/17 15:15 codeine AdvReac Nausea Verified 06/04/17 15:15 Iodinated Contrast- Oral and AdvReac Vomiting Verified 06/04/17 15:15 IV Dye [Iodinated Contrast Media - IV Dye] Physical Exam Vitals: Vital Signs Temp Pulse Pulse Resp BP BP Pulse Ox 06/05/17 07:12 80 06/05/17 07:02 78 06/05/17 04:00 97.2 F L 87 18 131/58 100 06/05/17 03:46 88 06/05/17 03:33 80 06/05/17 00:50 84 06/05/17 00:38 87 06/05/17 00:00 96.8 F L 83 18 138/79 98 06/04/17 22:15 98.0 F 92 20 164/78 96 06/04/17 21:46 97 18 173/77 96 06/04/17 21:02 90 06/04/17 20:52 83 20 177/86 96 06/04/17 20:49 88 06/04/17 19:12 94 20 159/75 98 06/04/17 17:28 98.2 F 104 H 22 156/93 95 06/04/17 17:27 102 H 06/04/17 17:08 100 06/04/17 17:03 106 H 26 H 174/77 97 06/04/17 16:39 96 20 174/77 96 06/04/17 16:28 98 18 195/100 96 06/04/17 16:12 92 23 205/97 97 06/04/17 15:53 100 06/04/17 15:35 97 06/04/17 15:21 96 06/04/17 15:10 89 24 199/93 95 06/04/17 15:05 90 06/04/17 15:00 26 H 06/04/17 14:30 97.1 F L 107 H 24 214/91 95 Intake and Output 06/04/17 06/05/17 06/05/17 22:59 06:59 14:59 Intake Total 200 Balance 200 Intake: Oral 200 Other: Voiding Method Bedside Commode Weight 38.1 kg General appearance: no acute distress, thin - EENT Eyes: anicteric sclerae, EOMI, PERRLA, no ptosis, no scleral icterus, normal appearance ENT: hearing grossly normal, normal oropharynx, no thrush Ears: bilateral: normal - Neck Neck: no lymphadenopathy, normal ROM, no rigidity, no stridor Carotids: bilateral: upstroke delayed Thyroid: bilateral: normal size - Respiratory Respiratory: bilateral: diminished, wheezing, prolonged expiration, negative: dullness, rales - Cardiovascular Rhythm: regular Heart sounds: normal: S1, S2 Abnormal Heart Sounds: systolic murmur, no S3 Gallop, no S4 Gallop, no click - Gastrointestinal General gastrointestinal: normal bowel sounds, soft, no splenomegaly, no tenderness, no umbilical hernia, no ventral hernia - Integumentary Integumentary: normal, normal turgor - Neurologic Neurologic: CNII-XII intact - Musculoskeletal Musculoskeletal: strength equal bilaterally - Psychiatric Psychiatric: A&O x's 3, appropriate affect, intact judgment & insight Results CBC & Chem 7: 06/04/17 15:03 06/04/17 15:03 Labs: Abnormal Lab Results - Last 24 Hours (Table) 06/04/17 06/04/17 06/05/17 Range/Units 15:03 15: 06:28 BUN 22 H (7-17) mg/dL POC Glucose (mg/dL) 103 H (75-99) mg/dL Total Creatine Kinase 329 H (30-135) U/L CK-MB (CK-2) 4.1 H* (0.0-2.4) ng/mL Thrombosis Risk Factor Assmnt - DVT/VTE Prophylaxis DVT/VTE Prophylaxis: Pharmacologic Prophylaxis ordered - Choose All That Apply Each Factor Represents 1 point: Abnormal pulmonary function (COPD) Each Risk Factor Represents 3 Points: Age 75 years or older Thrombosis Risk Factor Assessment Total Risk Factor Score: 4 Thrombosis Risk Factor Assessment Level: Moderate Risk Assessment and Plan Plan: 1. Acute COPD exacerbation. Continue DuoNeb, Symbicort, Solu-Medrol which is at 60 mg IV every 6 hours, Zithromax, Robitussin as needed, consult with Dr. Baker. IV fluids will be discontinued. 2. Recent history of rectal vaginal fistula, repaired with colon resection and colostomy placement done at [facility], stable. Continue Metamucil. 3. History of coronary artery disease. Stable at this time. 4. Hypertension and hypertensive cardiovascular disease. Continue losartan 100 mg in the morning and 50 mg in the evening . 5. Hyperlipidemia. Low-cholesterol diet. 6. GERD. Continue current Protonix 40 mg orally once every day. 7. Osteoarthritis. Continue meloxicam 15 mg orally once every day. 8. Tobacco use and dependence. Patient recently quit smoking. 9. Osteoporosis. Stable. 10. DVT prophylaxis. Heparin subcutaneously every 12 hours. 11. GI prophylaxis. On Protonix 40 mg orally once every day. 12. Inpatient. Estimated length of stay 2 days. 13. Full code. Discharge plan: Return home Impression and plan of care have been directed as dictated by the signing physician. Keren Daniels nurse practitioner acting as scribe for signing physician.
[2017-06-05] MEDS: IPRATROPIUM 0.5 MG/2.5 ML NEBU INHALATION SCH ×4 (10:31→20:37)
[2017-06-05] MEDS: SYMBICORT 160-4.5 MCG INHALER INHALATION SCH ×2 (10:33→20:32)
[2017-06-05] MEDS: ALPRAZolam 0.5 MG TAB PO PRN ×2 (11:02→17:45)
[2017-06-05 11:38] LABS: Glucose,Whole Blood 166 mg/dL (75-99)
--- NOTE | 2017-06-05 12:01 | P.CNPUL ---
History of Present Illness Consult date: 06/05/17 Requesting physician: Jeimy Sr Reason for consult: dyspnea Chief complaint: Shortness of breath, cough, congestion History of present illness: This is a very pleasant 76-year-old female patient who follows with Dr. España is her primary care physician. She has a history of hypertension, gastroesophageal reflux disease, breast cancer with previous left mastectomy, diverticulosis with rectovaginal fistula and repair. She does have a colostomy now. She has has a history of hypertension, osteoarthritis, peptic ulcer disease, frequent urinary tract infections, coronary artery disease which is nonocclusive from cardiac catheterization 2014. She also has a history of significant chronic obstructive pulmonary disease. She is not oxygen dependent nor steroid dependent at this point. She follows with Dr. Bain in our office for the same. She is on Symbicort, Spiriva and albuterol in the outpatient setting. She presented here to the emergency room yesterday after a 4 day history of increasing shortness of breath, cough with occasional yellow sputum. No fever, chills or night sweats. No nausea, vomiting or diarrhea. Her chest x-ray reveals evidence of chronic obstructive pulmonary disease but no acute pulmonary process. No leukocytosis. She initially was maintaining good O2 saturations in the mid 90s on room air. She's been afebrile. She did have some respiratory distress last night and she was placed on BiPAP 10/5 and 50% FiO2. She is currently seen in consultation on the selective care unit. She is awake and alert in no acute distress. She is now maintaining good O2 saturations in the 90s on 3 L/m per nasal cannula. She is breathing somewhat better today as compared to yesterday. She's been initiated on bronchodilators , IV Solu-Medrol and empiric antibiotics. Review of Systems Constitutional: Reports fatigue, Reports poor appetite Eyes: denies blurred vision, denies decreased vision Ears: deny: decreased hearing Ears, nose, mouth and throat: Reports sore throat Cardiovascular: Reports shortness of breath Respiratory: Reports cough with sputum, Reports dyspnea, Reports wheezing Gastrointestinal: Reports diarrhea, Reports nausea Genitourinary: Denies dysuria, Denies hematuria Musculoskeletal: Reports muscle weakness Integumentary: Denies pruritus, Denies rash Neurological: Denies numbness, Denies weakness Psychiatric: Denies anxiety, Denies depression Endocrine: Denies fatigue, Denies weight change Past Medical History Past Medical History: Asthma, Cancer, COPD, GERD/Reflux, Hypertension, Osteoarthritis (OA) Additional Past Medical History / Comment(s): COPD, breast cancer with left mastectomy, diverticulosis with diverticular complications and rectovaginal fistula status post fistula repair, colon resection and colostomy placement at [facility], irritable bowel syndrome, peptic ulcer disease, frequent urine checked infections, coronary artery disease with nonocclusive CAD based on the previous cardiac catheterization 2014, hypertension History of Any Multi-Drug Resistant Organisms: None Reported Past Surgical History: Bladder Surgery, Cholecystectomy, Heart Catheterization, Hysterectomy, Orthopedic Surgery Additional Past Surgical History / Comment(s): 09/21/14 cardiac cath with disease -treated medically, cataracts bilaterally, rt rotator cuff, juan m carpal tunnel, bladder suspension, rectocele repair, hemorrhoidectomy, colonoscopies, camera endoscopy, EGD, left masectomy , vaginal rectal fistula repair, bowel resection and colostomy placement Past Anesthesia/Blood Transfusion Reactions: No Reported Reaction Additional Past Anesthesia/Blood Transfusion Reaction / Comment(s): Pt is claustrophobic. Past Psychological History: Anxiety Additional Psychological History / Comment(s): Pt resides at [facility]. She is independent. She uses no assistive device. She drives. She has a nebulizer. She does not have 02. Her daughter does the grocery shopping. She has a little anxiety which she occasionally uses xanax with good results. She is claustrophobic. Smoking Status: Former smoker Past Alcohol Use History: None Reported Additional Past Alcohol Use History / Comment(s): PT QUIT SMOKING ONE MONTH AGO. STATES SHE ONLY SMOKED 2 CIGARETTES A DAY WITH HER COFFEE AT THAT TIME. Past Drug Use History: None Reported - Past Family History Father Family Medical History: COPD Additional Family Medical History / Comment(s): Father is . Mother Family Medical History: CVA/TIA, Hypertension Additional Family Medical History / Comment(s): at age 91 Brother(s) Family Medical History: Cancer, Myocardial Infarction ([place]) Daughter(s) Family Medical History: No Reported History Son(s) Family Medical History: No Reported History Sister(s) Family Medical History: Cancer Medications and Allergies Home Medications Medication Instructions Recorded Confirmed Type Gabapentin [Neurontin] 100 mg PO BID 09/17/14 06/04/17 History ALPRAZolam [Xanax] 1 mg PO TID PRN 06/16/15 06/04/17 History Albuterol Nebulized [Ventolin 2.5 mg INHALATION RT-TID 06/16/15 06/04/17 History Nebulized] Prochlorperazine [Compazine] 10 mg PO TID PRN #30 tab 06/18/15 06/04/17 Rx Losartan Potassium [Cozaar] 50 mg PO HS 03/06/16 06/04/17 History Losartan Potassium [Cozaar] 100 mg PO QAM 03/06/16 06/04/17 History Omeprazole [PriLOSEC] 20 mg PO DAILY 03/06/16 06/04/17 History Celecoxib [CeleBREX] 200 mg PO DAILY 06/20/16 06/04/17 History Budesonide/Formoterol Fumarate 2 puff INHALATION RT-BID 11/12/16 06/04/17 History [Symbicort 160-4.5 Mcg Inhaler] Dicyclomine [Bentyl] 10 mg PO BID 11/12/16 06/04/17 History Tiotropium [place] [Spiriva] 1 cap INHALATION RT-DAILY 11/12/16 06/04/17 History Allergies Allergy/AdvReac Type Severity Reaction Status Date / Time aspirin AdvReac Nausea Verified 06/04/17 15:15 codeine AdvReac Nausea Verified 06/04/17 15:15 Iodinated Contrast- Oral and AdvReac Vomiting Verified 06/04/17 15:15 IV Dye [Iodinated Contrast Media - IV Dye] Physical Exam Vitals: Vital Signs Temp Pulse Pulse Resp BP BP Pulse Ox 06/05/17 10:45 85 06/05/17 10:34 84 06/05/17 08:00 97.2 F L 102 H 20 133/77 94 L 06/05/17 07:12 80 06/05/17 07:02 78 06/05/17 04:00 97.2 F L 87 18 131/58 100 06/05/17 03:46 88 06/05/17 03:33 80 06/05/17 00:50 84 06/05/17 00:38 87 06/05/17 00:00 96.8 F L 83 18 138/79 98 02/20/18 22:15 98.0 F 92 20 164/78 96 06/04/17 21:46 97 18 173/77 96 06/04/17 21:02 90 06/04/17 20:52 83 20 177/86 96 06/04/17 20:49 88 06/04/17 19:12 94 20 159/75 98 06/04/17 17:28 98.2 F 104 H 22 156/93 95 06/04/17 17:27 102 H 06/04/17 17:08 100 06/04/17 17:03 106 H 26 H 174/77 97 06/04/17 16:39 96 20 174/77 96 06/04/17 16:28 98 18 195/100 96 06/04/17 16:12 92 23 205/97 97 06/04/17 15:53 100 06/04/17 15:35 97 06/04/17 15:21 96 06/04/17 15:10 89 24 199/93 95 06/04/17 15:05 90 06/04/17 15:00 26 H 06/04/17 14:30 97.1 F L 107 H 24 214/91 95 Intake and Output 06/04/17 06/05/17 06/05/17 22:59 06:59 14:59 Intake Total 200 240 Balance 200 240 Intake: Oral 200 240 Other: Voiding Method Bedside Commode Bedside Commode Weight 38.1 kg GENERAL EXAM: Frail, cachectic. Alert, fairly comfortable in no apparent distress. HEAD: Normocephalic. EYES: Normal reaction of pupils, equal size. NOSE: Clear with pink turbinates. THROAT: No erythema or exudates. NECK: No masses, no JVD. CHEST: No chest wall deformity. LUNGS: Equal air entry with bilateral end expiratory wheeze. Diminished.. CVS: S1 and S2 normal with no audible murmur, regular rhythm. ABDOMEN: No hepatosplenomegaly, normal bowel sounds, no guarding or rigidity. SPINE: Kyphoscoliosis SKIN: No rashes CENTRAL NERVOUS SYSTEM: No focal deficits, tone is normal in all 4 extremities. EXTREMITIES: There is no peripheral edema. No clubbing, no cyanosis. Peripheral pulses are intact. Results - Laboratory Findings CBC and BMP: 06/04/17 15:03 06/04/17 15:03 PT/INR, D-dimer PT 9.9 sec (9.0-12.0) 06/04/17 15:03 INR 1.0 (<1.2) 06/04/17 15:03 Abnormal lab findings: Abnormal Labs 06/04/17 06/04/17 06/05/17 15:03 15:03 06:28 BUN 22 H POC Glucose (mg/dL) 103 H Total Creatine Kinase 329 H CK-MB (CK-2) 4.1 H* 06/05/17 11:33 BUN POC Glucose (mg/dL) 166 H Total Creatine Kinase CK-MB (CK-2) - Diagnostic Findings Chest x-ray: image reviewed Assessment and Plan Assessment: Impression: #1 Acute exacerbation of chronic obstructive pulmonary disease, complicated by purulent tracheobronchitis. #2 Acute hypoxic respiratory failure secondary to above. #3 Recent colectomy with colostomy secondary to rectovaginal fistula repair with previous frequent urinary tract infections and diverticular disease. #4 Coronary artery disease, currently inactive and stable. Most recent cardiac catheterization revealed nonocclusive disease. #5 Hypertension. #6 Hyperlipidemia. #7 History of chronic tobacco dependence. #8 Breast cancer with his left mastectomy. #9 Osteoporosis. Plan: The patient was seen and evaluated by Dr. Baker. Her chest x-ray and labs were reviewed. We will treat her for her COPD exacerbation. She is on DuoNeb inhalations 4 times a day and when necessary, Symbicort, IV Solu-Medrol. She is also on empiric antibiotics in the form of azithromycin. Continue heparin for DVT prophylaxis, Protonix for GI prophylaxis. We will increase her activity as tolerated. We'll continue to follow and make further recommendations based on her clinical status. I, the cosigning physician, performed a history & physical examination of the patient. Lungs sounds have end expiratory wheeze bilaterally. Maintaining good O2 saturations in the 90s on 3 L/m per nasal cannula. I discussed the assessment and plan of care with my nurse practitioner, Rosi Julio. I attest to the above consultation as dictated by her. Time with Patient: Greater than 30
[2017-06-05] MEDS: POLYETHYLENE GLYCOL 3350 17 GM POWD.PACK PO SCH (12:07)
[2017-06-05 16:22] LABS: Glucose,Whole Blood 125 mg/dL (75-99)
[2017-06-05 20:56] LABS: Glucose,Whole Blood 130 mg/dL (75-99)
[2017-06-05] MEDS: ACETAMINOPHEN TAB 325 MG TAB PO PRN (21:03)
[2017-06-06] MEDS: methylPREDNISolone SOD SUCCI 125 MG/2 ML VIAL IV SCH ×3 (00:15→17:40)
[2017-06-06 05:59] LABS: Glucose,Whole Blood 108 mg/dL (75-99)
[2017-06-06] MEDS: PANTOPRAZOLE 40 MG TABLET PO SCH (07:07)
[2017-06-06] MEDS: IPRATROPIUM-ALBUTEROL 3 ML NEB INHALATION SCH ×4 (07:18→19:56)
[2017-06-06] MEDS: SYMBICORT 160-4.5 MCG INHALER INHALATION SCH ×2 (07:18→19:56)
[2017-06-06] MEDS: IPRATROPIUM 0.5 MG/2.5 ML NEBU INHALATION SCH ×4 (07:21→19:56)
[2017-06-06] MEDS: INSULIN ASPART 100 UNIT/ML 1 ML 10 ML VIAL SQ SCH ×4 (07:30→20:49)
[2017-06-06] MEDS: POLYETHYLENE GLYCOL 3350 17 GM POWD.PACK PO SCH (07:34)
[2017-06-06] MEDS: ALPRAZolam 0.5 MG TAB PO PRN ×3 (07:34→20:58)
[2017-06-06] MEDS: guaiFENesin-DM 100-10MG/5ML 10 ML CUP PO PRN ×3 (07:34→20:58)
[2017-06-06] MEDS: LOSARTAN 50 MG TAB PO SCH (07:36)
[2017-06-06] MEDS: AZITHROMYCIN 500 MG TAB PO SCH (10:09)
[2017-06-06] MEDS: MELOXICAM 7.5 MG TAB PO SCH (10:09)
[2017-06-06] MEDS: HEPARIN SODIUM,PORCINE 5,000 UNIT/ML 1 ML VIAL SQ SCH ×2 (10:09→20:58)
[2017-06-06] MEDS: GABAPENTIN 100 MG CAP PO SCH ×2 (10:09→20:57)
[2017-06-06] MEDS: DICYCLOMINE 10 MG CAP PO SCH ×2 (10:09→20:57)
[2017-06-06] MEDS: ACETAMINOPHEN TAB 325 MG TAB PO PRN (10:33)
[2017-06-06 11:37] LABS: Glucose,Whole Blood 109 mg/dL (75-99)
--- NOTE | 2017-06-06 12:44 | P.PN ---
Subjective Progress Note Date: 06/06/17 This is a 76-year-old female one of Dr. Alejandro with a previous medical history significant for coronary artery disease status post left heart catheterization with the left heart catheterization that was done in September 2014 that showed ostial lesion of the diagonal branch and mild disease of the RCA, normal ejection fraction, hypertension and hypertensive cardiovascular disease with left ventricular hypertrophy, chronic tobacco use and dependence with chronic obstructive pulmonary disease, GERD. She had a recent hospitalization in January 2017 for a rectovaginal fistula and was seen at that time by Dr. aBrnhart and Dr. Burgos with plan for discharge on Cipro and Flagyl and follow up as an outpatient. Patient states that she underwent a fistula repair, colon resection and colostomy placement done at [facility] and has had no further difficulties but takes Miralax daily to avoid constipation. She was most recently admitted in April for chest pain secondary to GERD. Patient complains of shortness of breath that has been going on for the past 4 days along with cough with yellow sputum. No fever or chills. No chest pain. Patient is not home O2 dependent. She does have nebulizer at home. She lives independently and her daughter helps with grocery shopping. Patient came into [facility] emergency center with the above concerns. She was afebrile but hypertensive. EKG was a sinus rhythm with no acute ST changes. White count was normal, electrolytes were within normal limits as well as kidney function. Hemoglobin 14.3. Lactic acid was within normal limits as well as troponin and BNP. Chest x-ray revealed no acute cardiopulmonary process. Radiographic sequela of COPD. Patient was given supplemental oxygen and nebulizer treatment and continued to have some dyspnea for which she was admitted to the hospital, continued on DuoNeb treatments, Solu -Medrol IV, azithromycin and Symbicort and a consult was requested with Dr. Baker. 06/06: Patient is seen and followed by Dr. Baker. She is currently on Solu- Medrol 60 mg every 6 hours which will be decreased to every 8 hours. She has been afebrile. Blood pressure and heart rate elevated. Patient states she did not receive any cough medicine and still this morning. Patient has been reminded that she will need to ask for this. Blood pressure has been elevated for which her evening dose of losartan was discontinued and patient started on Norvasc 10 mg daily. Patient states that she is coughing but now it's dry. Her daughter states that she feels her respiratory status is the same. Blood cultures no growth at 24 hours. Objective - Vital Signs Vital signs: Vital Signs Temp 97.3 F L 06/06/17 07:30 Pulse 108 H 06/06/17 07:33 Resp 20 06/06/17 07:30 BP 214/101 06/06/17 07:30 Pulse Ox 96 06/06/17 07:30 Intake & Output 06/05/17 06/06/17 06/06/17 18:59 06:59 18:59 Intake Total 440 60 Output Total 800 2400 Balance -360 -2400 60 Weight 38.1 kg 37.7 kg Intake: Intake, IV Titration 200 Amount Sodium Chloride 0.9% 1, 200 000 ml @ 100 mls/hr IV . Q10H [facility] Rx#:[id number] Oral 240 60 Output: Urine 800 2400 Other: Voiding Method Bedside Commode Bedside Commode # Voids 1 1 - Exam General appearance: no acute distress, thin - EENT Eyes: anicteric sclerae, EOMI, PERRLA, no ptosis, no scleral icterus, normal appearance ENT: hearing grossly normal, normal oropharynx, no thrush Ears: bilateral: normal - Neck Neck: no lymphadenopathy, normal ROM, no rigidity, no stridor Carotids: bilateral: upstroke delayed Thyroid: bilateral: normal size - Respiratory Respiratory: bilateral: diminished, negative: dullness, rales - Cardiovascular Rhythm: regular Heart sounds: normal: S1, S2 Abnormal Heart Sounds: systolic murmur, no S3 Gallop, no S4 Gallop, no click - Gastrointestinal General gastrointestinal: normal bowel sounds, soft, no splenomegaly, no tenderness, no umbilical hernia, no ventral hernia - Integumentary Integumentary: normal, normal turgor - Neurologic Neurologic: CNII-XII intact - Musculoskeletal Musculoskeletal: strength equal bilaterally - Psychiatric Psychiatric: A&O x's 3, appropriate affect, intact judgment & insight - Labs CBC & Chem 7: 06/04/17 15:03 06/04/17 15:03 Labs: Abnormal Lab Results - Last 24 Hours (Table) 06/05/17 06/05/17 06/05/17 Range/Units 11:33 16:20 20:49 POC Glucose (mg/dL) 166 H 125 H 130 H (75-99) mg/dL 06/06/17 Range/Units 05:57 POC Glucose (mg/dL) 108 H (75-99) mg/dL Microbiology - Last 24 Hours (Table) 06/04/17 15:03 Blood Culture - Preliminary Blood No Growth after 24 hours Assessment and Plan Plan: 1. Acute COPD exacerbation. Continue DuoNeb, Symbicort, Solu-Medrol which is at 60 mg IV every 8 hours, Zithromax, Robitussin as needed, consult with Dr. Baker. IV fluids will be discontinued. 2. Recent history of rectal vaginal fistula, repaired with colon resection and colostomy placement done at [facility], stable. Continue Metamucil. 3. History of coronary artery disease. Stable at this time. 4. Hypertension and hypertensive cardiovascular disease. Continue losartan 100 mg in the morning and 50 mg in the evening . 5. Hyperlipidemia. Low-cholesterol diet. 6. GERD. Continue current Protonix 40 mg orally once every day. 7. Osteoarthritis. Continue meloxicam 15 mg orally once every day. 8. Tobacco use and dependence. Patient recently quit smoking. 9. Osteoporosis. Stable. 10. DVT prophylaxis. Heparin subcutaneously every 12 hours. 11. GI prophylaxis. On Protonix 40 mg orally once every day. 12. Inpatient. Estimated length of stay 2 days. 13. Full code. Discharge plan: Return home Impression and plan of care have been directed as dictated by the signing physician. Keren Daniels nurse practitioner acting as scribe for signing physician.
--- NOTE | 2017-06-06 13:07 | P.PN ---
Subjective Progress Note Date: 06/06/17 Principal diagnosis: Acute exacerbation of chronic obstructive pulmonary disease. This is a very pleasant 76-year-old female patient who follows with Dr. España is her primary care physician. She has a history of hypertension, gastroesophageal reflux disease, breast cancer with previous left mastectomy, diverticulosis with rectovaginal fistula and repair. She does have a colostomy now. She has has a history of hypertension, osteoarthritis, peptic ulcer disease, frequent urinary tract infections, coronary artery disease which is nonocclusive from cardiac catheterization 2014. She also has a history of significant chronic obstructive pulmonary disease. She is not oxygen dependent nor steroid dependent at this point. She follows with Dr. Bain in our office for the same. She is on Symbicort, Spiriva and albuterol in the outpatient setting. She presented here to the emergency room yesterday after a 4 day history of increasing shortness of breath, cough with occasional yellow sputum. No fever, chills or night sweats. No nausea, vomiting or diarrhea. Her chest x-ray reveals evidence of chronic obstructive pulmonary disease but no acute pulmonary process. No leukocytosis. She initially was maintaining good O2 saturations in the mid 90s on room air. She's been afebrile. She did have some respiratory distress last night and she was placed on BiPAP 10/5 and 50% FiO2. She is currently seen in consultation on the selective care unit. She is awake and alert in no acute distress. She is now maintaining good O2 saturations in the 90s on 3 L/m per nasal cannula. She is breathing somewhat better today as compared to yesterday. She's been initiated on bronchodilators , IV Solu-Medrol and empiric antibiotics. The patient is seen again today 06/06/2017 in follow-up on the selective care unit. She is much more awake and alert today as compared to yesterday. She is breathing quite a bit better. Not quite back to her baseline. Still dyspneic on exertion. Currently off the BiPAP and sitting up having lunch. She is maintaining good O2 saturations in the mid 90s on 3 L/m per nasal cannula. She' s afebrile. She is continued on IV Solu-Medrol, DuoNeb inhalations, Symbicort. Objective - Vital Signs Vital signs: Vital Signs Temp 97.1 F L 06/06/17 10:50 Pulse 100 06/06/17 11:46 Resp 20 06/06/17 11:30 BP 179/92 06/06/17 10:50 Pulse Ox 95 06/06/17 10:50 Intake & Output 06/05/17 06/06/17 06/06/17 18:59 06:59 18:59 Intake Total 440 160 Output Total 800 2400 Balance -360 -2400 160 Weight 38.1 kg 37.7 kg Intake: Intake, IV Titration 200 Amount Sodium Chloride 0.9% 1, 200 000 ml @ 100 mls/hr IV . Q10H [facility] Rx#:[id number] Oral 240 160 Output: Urine 800 2400 Other: Voiding Method Bedside Commode Bedside Commode Bedside Commode # Voids 1 1 - Exam GENERAL EXAM: Frail, cachectic. Alert, fairly comfortable in no apparent distress. HEAD: Normocephalic. EYES: Normal reaction of pupils, equal size. NOSE: Clear with pink turbinates. THROAT: No erythema or exudates. NECK: No masses, no JVD. CHEST: No chest wall deformity. LUNGS: Equal air entry with bilateral end expiratory wheeze. Diminished.. CVS: S1 and S2 normal with no audible murmur, regular rhythm. ABDOMEN: No hepatosplenomegaly, normal bowel sounds, no guarding or rigidity. SPINE: Kyphoscoliosis SKIN: No rashes CENTRAL NERVOUS SYSTEM: No focal deficits, tone is normal in all 4 extremities. EXTREMITIES: There is no peripheral edema. No clubbing, no cyanosis. Peripheral pulses are intact. - Labs CBC & Chem 7: 06/04/17 15:03 06/04/17 15:03 Labs: Abnormal Lab Results - Last 24 Hours (Table) 06/05/17 06/05/17 06/06/17 Range/Units 16:20 20:49 05:57 POC Glucose (mg/dL) 125 H 130 H 108 H (75-99) mg/dL 06/06/17 Range/Units 11:31 POC Glucose (mg/dL) 109 H (75-99) mg/dL Microbiology - Last 24 Hours (Table) 06/04/17 15:03 Blood Culture - Preliminary Blood No Growth after 24 hours Assessment and Plan Assessment: Impression: #1 Acute exacerbation of chronic obstructive pulmonary disease, complicated by purulent tracheobronchitis. #2 Acute hypoxic respiratory failure secondary to above. #3 Recent colectomy with colostomy secondary to rectovaginal fistula repair with previous frequent urinary tract infections and diverticular disease. #4 Coronary artery disease, currently inactive and stable. Most recent cardiac catheterization revealed nonocclusive disease. #5 Hypertension. #6 Hyperlipidemia. #7 History of chronic tobacco dependence. #8 Breast cancer with his left mastectomy. #9 Osteoporosis. Plan: The patient was seen and evaluated by Dr. Baker. She is doing quite a bit better today as compared to yesterday. She is on DuoNeb inhalations 4 times a day and when necessary, Symbicort, IV Solu-Medrol. She is also on empiric antibiotics in the form of azithromycin. Continue heparin for DVT prophylaxis, Protonix for GI prophylaxis. We will increase her activity as tolerated. We' ll continue to follow and make further recommendations based on her clinical status. I, the cosigning physician, performed a history & physical examination of the patient. Lungs sounds have end expiratory wheeze bilaterally. Maintaining good O2 saturations in the 90s on 3 L/m per nasal cannula. I discussed the assessment and plan of care with my nurse practitioner, Rosi Julio. I attest to the above consultation as dictated by her.
[2017-06-06] MEDS: amLODIPine 10 MG TAB PO SCH (13:20)
[2017-06-06 17:07] LABS: Glucose,Whole Blood 112 mg/dL (75-99)
[2017-06-06 20:48] LABS: Glucose,Whole Blood 127 mg/dL (75-99)
[2017-06-07] MEDS: methylPREDNISolone SOD SUCCI 125 MG/2 ML VIAL IV SCH ×2 (00:46→08:43)
[2017-06-07 06:02] LABS: Glucose,Whole Blood 118 mg/dL (75-99)
[2017-06-07] MEDS: INSULIN ASPART 100 UNIT/ML 1 ML 10 ML VIAL SQ SCH ×4 (06:10→21:29)
[2017-06-07] MEDS: PANTOPRAZOLE 40 MG TABLET PO SCH (06:39)
[2017-06-07] MEDS: guaiFENesin-DM 100-10MG/5ML 10 ML CUP PO PRN ×3 (06:59→21:24)
[2017-06-07] MEDS: IPRATROPIUM-ALBUTEROL 3 ML NEB INHALATION SCH ×4 (08:10→19:25)
[2017-06-07] MEDS: SYMBICORT 160-4.5 MCG INHALER INHALATION SCH ×2 (08:11→19:25)
[2017-06-07] MEDS: IPRATROPIUM 0.5 MG/2.5 ML NEBU INHALATION SCH ×4 (08:14→19:25)
[2017-06-07] MEDS: POLYETHYLENE GLYCOL 3350 17 GM POWD.PACK PO SCH (08:17)
[2017-06-07] MEDS: amLODIPine 10 MG TAB PO SCH (08:50)
[2017-06-07] MEDS: DICYCLOMINE 10 MG CAP PO SCH ×2 (08:51→20:53)
[2017-06-07] MEDS: GABAPENTIN 100 MG CAP PO SCH ×2 (08:51→20:53)
[2017-06-07] MEDS: AZITHROMYCIN 500 MG TAB PO SCH (08:51)
[2017-06-07] MEDS: HEPARIN SODIUM,PORCINE 5,000 UNIT/ML 1 ML VIAL SQ SCH ×2 (08:51→20:53)
[2017-06-07] MEDS: MELOXICAM 7.5 MG TAB PO SCH (08:52)
[2017-06-07] MEDS: LOSARTAN 50 MG TAB PO SCH (08:52)
[2017-06-07] MEDS: ALPRAZolam 0.5 MG TAB PO PRN ×2 (08:53→20:59)
--- NOTE | 2017-06-07 11:27 | P.PN ---
Subjective Progress Note Date: 06/07/17 Principal diagnosis: Acute exacerbation of chronic obstructive pulmonary disease. This is a very pleasant 76-year-old female patient who follows with Dr. España is her primary care physician. She has a history of hypertension, gastroesophageal reflux disease, breast cancer with previous left mastectomy, diverticulosis with rectovaginal fistula and repair. She does have a colostomy now. She has has a history of hypertension, osteoarthritis, peptic ulcer disease, frequent urinary tract infections, coronary artery disease which is nonocclusive from cardiac catheterization 2014. She also has a history of significant chronic obstructive pulmonary disease. She is not oxygen dependent nor steroid dependent at this point. She follows with Dr. Bain in our office for the same. She is on Symbicort, Spiriva and albuterol in the outpatient setting. She presented here to the emergency room yesterday after a 4 day history of increasing shortness of breath, cough with occasional yellow sputum. No fever, chills or night sweats. No nausea, vomiting or diarrhea. Her chest x-ray reveals evidence of chronic obstructive pulmonary disease but no acute pulmonary process. No leukocytosis. She initially was maintaining good O2 saturations in the mid 90s on room air. She's been afebrile. She did have some respiratory distress last night and she was placed on BiPAP 10/5 and 50% FiO2. She is currently seen in consultation on the selective care unit. She is awake and alert in no acute distress. She is now maintaining good O2 saturations in the 90s on 3 L/m per nasal cannula. She is breathing somewhat better today as compared to yesterday. She's been initiated on bronchodilators , IV Solu-Medrol and empiric antibiotics. The patient is seen again today 06/06/2017 in follow-up on the selective care unit. She is much more awake and alert today as compared to yesterday. She is breathing quite a bit better. Not quite back to her baseline. Still dyspneic on exertion. Currently off the BiPAP and sitting up having lunch. She is maintaining good O2 saturations in the mid 90s on 3 L/m per nasal cannula. She' s afebrile. She is continued on IV Solu-Medrol, DuoNeb inhalations, Symbicort. Patient is seen again today 06/07/2017 in follow-up on the selective care unit. She is resting quite comfortably in bed. She is awake and alert in no acute distress. She is maintaining good O2 saturations in the mid 90s on 2 L/m per nasal cannula. She's been afebrile. Hemodynamically stable. Blood cultures reveal no growth. Objective - Vital Signs Vital signs: Vital Signs Temp 97.9 F 06/07/17 07:46 Pulse 96 06/07/17 08:32 Resp 16 06/07/17 08:00 BP 153/76 06/07/17 07:46 Pulse Ox 95 06/07/17 08:14 Intake & Output 06/06/17 06/07/17 06/07/17 18:59 06:59 18:59 Intake Total 400 625 Balance 400 625 Weight 39.5 kg Intake: Oral 400 625 Other: Voiding Method Bedside Commode Bedside Commode Bedside Commode # Voids 0 2 - Exam GENERAL EXAM: Frail, cachectic. Alert, fairly comfortable in no apparent distress. HEAD: Normocephalic. EYES: Normal reaction of pupils, equal size. NOSE: Clear with pink turbinates. THROAT: No erythema or exudates. NECK: No masses, no JVD. CHEST: No chest wall deformity. LUNGS: Equal air entry with bilateral end expiratory wheeze. Diminished.. CVS: S1 and S2 normal with no audible murmur, regular rhythm. ABDOMEN: No hepatosplenomegaly, normal bowel sounds, no guarding or rigidity. SPINE: Kyphoscoliosis SKIN: No rashes CENTRAL NERVOUS SYSTEM: No focal deficits, tone is normal in all 4 extremities. EXTREMITIES: There is no peripheral edema. No clubbing, no cyanosis. Peripheral pulses are intact. - Labs CBC & Chem 7: 06/04/17 15:03 06/04/17 15:03 Labs: Abnormal Lab Results - Last 24 Hours (Table) 06/06/17 06/06/17 06/06/17 Range/Units 11:31 17:06 20:46 POC Glucose (mg/dL) 109 H 112 H 127 H (75-99) mg/dL 06/07/17 Range/Units 06:00 POC Glucose (mg/dL) 118 H (75-99) mg/dL Microbiology - Last 24 Hours (Table) 06/04/17 15:03 Blood Culture - Preliminary Blood No Growth after 48 hours Assessment and Plan Assessment: Impression: #1 Acute exacerbation of chronic obstructive pulmonary disease, complicated by purulent tracheobronchitis. #2 Acute hypoxic respiratory failure secondary to above. #3 Recent colectomy with colostomy secondary to rectovaginal fistula repair with previous frequent urinary tract infections and diverticular disease. #4 Coronary artery disease, currently inactive and stable. Most recent cardiac catheterization revealed nonocclusive disease. #5 Hypertension. #6 Hyperlipidemia. #7 History of chronic tobacco dependence. #8 Breast cancer with his left mastectomy. #9 Osteoporosis. Plan: The patient was seen and evaluated by Dr. Baker. She has no pulmonary complaints currently. Her oxygen requirements have improved. She is on DuoNeb inhalations 4 times a day and when necessary, Symbicort, IV Solu-Medrol. She is also on empiric antibiotics in the form of azithromycin. Continue heparin for DVT prophylaxis, Protonix for GI prophylaxis. We will increase her activity as tolerated. We'll continue to follow and make further recommendations based on her clinical status. I, the cosigning physician, performed a history & physical examination of the patient. Lungs sounds have end expiratory wheeze bilaterally. Maintaining good O2 saturations in the 90s on 2 L/m per nasal cannula. I discussed the assessment and plan of care with my nurse practitioner, Rosi Julio. I attest to the above consultation as dictated by her.
[2017-06-07 11:58] LABS: Glucose,Whole Blood 125 mg/dL (75-99)
[2017-06-07 13:33] VITALS: BMI 16.9
--- NOTE | 2017-06-07 15:55 | P.PN ---
Subjective Progress Note Date: 06/07/17 This is a 76-year-old female one of Dr. Alejandro with a previous medical history significant for coronary artery disease status post left heart catheterization with the left heart catheterization that was done in September 2014 that showed ostial lesion of the diagonal branch and mild disease of the RCA, normal ejection fraction, hypertension and hypertensive cardiovascular disease with left ventricular hypertrophy, chronic tobacco use and dependence with chronic obstructive pulmonary disease, GERD. She had a recent hospitalization in January 2017 for a rectovaginal fistula and was seen at that time by Dr. Barnhart and Dr. Burgos with plan for discharge on Cipro and Flagyl and follow up as an outpatient. Patient states that she underwent a fistula repair, colon resection and colostomy placement done at [facility] and has had no further difficulties but takes Miralax daily to avoid constipation. She was most recently admitted in April for chest pain secondary to GERD. Patient complains of shortness of breath that has been going on for the past 4 days along with cough with yellow sputum. No fever or chills. No chest pain. Patient is not home O2 dependent. She does have nebulizer at home. She lives independently and her daughter helps with grocery shopping. Patient came into [facility] emergency center with the above concerns. She was afebrile but hypertensive. EKG was a sinus rhythm with no acute ST changes. White count was normal, electrolytes were within normal limits as well as kidney function. Hemoglobin 14.3. Lactic acid was within normal limits as well as troponin and BNP. Chest x-ray revealed no acute cardiopulmonary process. Radiographic sequela of COPD. Patient was given supplemental oxygen and nebulizer treatment and continued to have some dyspnea for which she was admitted to the hospital, continued on DuoNeb treatments, Solu -Medrol IV, azithromycin and Symbicort and a consult was requested with Dr. Baker. 06/06: Patient is seen and followed by Dr. Baker. She is currently on Solu- Medrol 60 mg every 6 hours which will be decreased to every 8 hours. She has been afebrile. Blood pressure and heart rate elevated. Patient states she did not receive any cough medicine and still this morning. Patient has been reminded that she will need to ask for this. Blood pressure has been elevated for which her evening dose of losartan was discontinued and patient started on Norvasc 10 mg daily. Patient states that she is coughing but now it's dry. Her daughter states that she feels her respiratory status is the same. Blood cultures no growth at 24 hours. 06/07: Patient's breathing status is improving. Pulse ox is 93% on 2 L nasal cannula. She is using cough medicine which is helping her. Solu-Medrol will be decreased to 40 mg every 8 hours. Anticipate discharge home tomorrow. Transfer to the [facility] floor. Objective - Vital Signs Vital signs: Vital Signs Temp 97.6 F 06/07/17 11:33 Pulse 100 06/07/17 12:05 Resp 20 06/07/17 11:33 BP 131/66 06/07/17 11:33 Pulse Ox 93 L 06/07/17 11:33 Intake & Output 06/06/17 06/07/17 06/07/17 18:59 06:59 18:59 Intake Total 400 1105 Balance 400 1105 Weight 39.5 kg 39.5 kg Intake: Oral 400 1105 Other: Voiding Method Bedside Commode Bedside Commode Bedside Commode # Voids 0 2 - Exam General appearance: no acute distress, thin - EENT Eyes: anicteric sclerae, EOMI, PERRLA, no ptosis, no scleral icterus, normal appearance ENT: hearing grossly normal, normal oropharynx, no thrush Ears: bilateral: normal - Neck Neck: no lymphadenopathy, normal ROM, no rigidity, no stridor Carotids: bilateral: upstroke delayed Thyroid: bilateral: normal size - Respiratory Respiratory: bilateral: diminished, negative: dullness, rales - Cardiovascular Rhythm: regular Heart sounds: normal: S1, S2 Abnormal Heart Sounds: systolic murmur, no S3 Gallop, no S4 Gallop, no click - Gastrointestinal General gastrointestinal: normal bowel sounds, soft, no splenomegaly, no tenderness, no umbilical hernia, no ventral hernia - Integumentary Integumentary: normal, normal turgor - Neurologic Neurologic: CNII-XII intact - Musculoskeletal Musculoskeletal: strength equal bilaterally - Psychiatric Psychiatric: A&O x's 3, appropriate affect, intact judgment & insight - Labs CBC & Chem 7: 06/04/17 15:03 06/04/17 15:03 Labs: Abnormal Lab Results - Last 24 Hours (Table) 06/06/17 06/06/1718 Range/Units 17:06 20:46 06:00 POC Glucose (mg/dL) 112 H 127 H 118 H (75-99) mg/dL 06/07/17 Range/Units 11:53 POC Glucose (mg/dL) 125 H (75-99) mg/dL Microbiology - Last 24 Hours (Table) 06/04/17 15:03 Blood Culture - Preliminary Blood No Growth after 48 hours Assessment and Plan Plan: 1. Acute COPD exacerbation. Continue DuoNeb, Symbicort, Solu-Medrol which is at 40 mg IV every 8 hours, Zithromax, Robitussin as needed, consult with Dr. Baker. IV fluids will be discontinued. 2. Recent history of rectal vaginal fistula, repaired with colon resection and colostomy placement done at [facility], stable. Continue Metamucil. 3. History of coronary artery disease. Stable at this time. 4. Hypertension and hypertensive cardiovascular disease. Continue losartan 100 mg in the morning and 50 mg in the evening . 5. Hyperlipidemia. Low-cholesterol diet. 6. GERD. Continue current Protonix 40 mg orally once every day. 7. Osteoarthritis. Continue meloxicam 15 mg orally once every day. 8. Tobacco use and dependence. Patient recently quit smoking. 9. Osteoporosis. Stable. 10. DVT prophylaxis. Heparin subcutaneously every 12 hours. 11. GI prophylaxis. On Protonix 40 mg orally once every day. 12. Inpatient. Estimated length of stay 2 days. 13. Full code. Discharge plan: Return home on Saturday Impression and plan of care have been directed as dictated by the signing physician. Keren Daniels nurse practitioner acting as scribe for signing physician.
[2017-06-07] MEDS: methylPREDNISolone SOD SUCCI 40 MG/ML 1 ML VIAL IV SCH (16:19)
[2017-06-07 17:32] LABS: Glucose,Whole Blood 93 mg/dL (75-99)
[2017-06-07 21:26] LABS: Glucose,Whole Blood 216 mg/dL (75-99)
[2017-06-08] MEDS: methylPREDNISolone SOD SUCCI 40 MG/ML 1 ML VIAL IV SCH ×3 (00:56→15:02)
[2017-06-08 07:24] VITALS: RESP 16
[2017-06-08 07:35] LABS: Glucose,Whole Blood 133 mg/dL (75-99)
[2017-06-08] MEDS: IPRATROPIUM-ALBUTEROL 3 ML NEB INHALATION SCH ×3 (07:37→16:27)
[2017-06-08] MEDS: SYMBICORT 160-4.5 MCG INHALER INHALATION SCH (07:37)
[2017-06-08] MEDS: IPRATROPIUM 0.5 MG/2.5 ML NEBU INHALATION SCH ×2 (07:38→11:27)
[2017-06-08] MEDS: LOSARTAN 50 MG TAB PO SCH (08:20)
[2017-06-08] MEDS: DICYCLOMINE 10 MG CAP PO SCH (08:20)
[2017-06-08] MEDS: MELOXICAM 7.5 MG TAB PO SCH (08:20)
[2017-06-08] MEDS: INSULIN ASPART 100 UNIT/ML 1 ML 10 ML VIAL SQ SCH ×2 (08:20→12:09)
[2017-06-08] MEDS: AZITHROMYCIN 500 MG TAB PO SCH (08:20)
[2017-06-08] MEDS: GABAPENTIN 100 MG CAP PO SCH (08:21)
[2017-06-08] MEDS: amLODIPine 10 MG TAB PO SCH (08:21)
[2017-06-08] MEDS: PANTOPRAZOLE 40 MG TABLET PO SCH (08:21)
[2017-06-08] MEDS: HEPARIN SODIUM,PORCINE 5,000 UNIT/ML 1 ML VIAL SQ SCH (08:21)
[2017-06-08] MEDS: POLYETHYLENE GLYCOL 3350 17 GM POWD.PACK PO SCH (08:21)
[2017-06-08 11:59] LABS: Glucose,Whole Blood 118 mg/dL (75-99)
--- NOTE | 2017-06-08 13:56 | P.PN ---
Subjective Progress Note Date: 06/08/17 Principal diagnosis: Acute exacerbation of chronic obstructive pulmonary disease. This is a very pleasant 76-year-old female patient who follows with Dr. España is her primary care physician. She has a history of hypertension, gastroesophageal reflux disease, breast cancer with previous left mastectomy, diverticulosis with rectovaginal fistula and repair. She does have a colostomy now. She has has a history of hypertension, osteoarthritis, peptic ulcer disease, frequent urinary tract infections, coronary artery disease which is nonocclusive from cardiac catheterization 2014. She also has a history of significant chronic obstructive pulmonary disease. She is not oxygen dependent nor steroid dependent at this point. She follows with Dr. Bain in our office for the same. She is on Symbicort, Spiriva and albuterol in the outpatient setting. She presented here to the emergency room yesterday after a 4 day history of increasing shortness of breath, cough with occasional yellow sputum. No fever, chills or night sweats. No nausea, vomiting or diarrhea. Her chest x-ray reveals evidence of chronic obstructive pulmonary disease but no acute pulmonary process. No leukocytosis. She initially was maintaining good O2 saturations in the mid 90s on room air. She's been afebrile. She did have some respiratory distress last night and she was placed on BiPAP 10/5 and 50% FiO2. She is currently seen in consultation on the selective care unit. She is awake and alert in no acute distress. She is now maintaining good O2 saturations in the 90s on 3 L/m per nasal cannula. She is breathing somewhat better today as compared to yesterday. She's been initiated on bronchodilators , IV Solu-Medrol and empiric antibiotics. The patient is seen again today 06/06/2017 in follow-up on the selective care unit. She is much more awake and alert today as compared to yesterday. She is breathing quite a bit better. Not quite back to her baseline. Still dyspneic on exertion. Currently off the BiPAP and sitting up having lunch. She is maintaining good O2 saturations in the mid 90s on 3 L/m per nasal cannula. She' s afebrile. She is continued on IV Solu-Medrol, DuoNeb inhalations, Symbicort. Patient is seen again today 06/07/2017 in follow-up on the selective care unit. She is resting quite comfortably in bed. She is awake and alert in no acute distress. She is maintaining good O2 saturations in the mid 90s on 2 L/m per nasal cannula. She's been afebrile. Hemodynamically stable. Blood cultures reveal no growth. The patient is seen again today 06/08/2017 in follow-up on the regular medical floor. She is awake and alert in no acute distress. She is breathing quite a bit better today. She is nearly back to her baseline. Blood cultures revealed no growth. She is afebrile. She is maintaining good O2 saturations in the 90s on room air. She is continued on DuoNeb inhalations, Symbicort, steroids, empiric antibiotics. Objective - Vital Signs Vital signs: Vital Signs Temp 97.2 F L 06/08/17 07:00 Pulse 72 06/08/17 11:42 Resp 16 06/08/17 07:00 BP 137/70 06/08/17 07:00 Pulse Ox 96 06/08/17 07:00 Intake & Output 06/07/17 06/08/17 06/08/17 18:59 06:59 18:59 Intake Total 1105 500 Balance 1105 500 Weight 39.5 kg Intake: Oral 1105 500 Other: Voiding Method Bedside Commode Bedside Commode Bedside Commode # Voids 1 1 - Exam GENERAL EXAM: Frail, cachectic. Alert, fairly comfortable in no apparent distress. HEAD: Normocephalic. EYES: Normal reaction of pupils, equal size. NOSE: Clear with pink turbinates. THROAT: No erythema or exudates. NECK: No masses, no JVD. CHEST: No chest wall deformity. LUNGS: Equal air entry with bilateral end expiratory wheeze. Diminished.. CVS: S1 and S2 normal with no audible murmur, regular rhythm. ABDOMEN: No hepatosplenomegaly, normal bowel sounds, no guarding or rigidity. SPINE: Kyphoscoliosis SKIN: No rashes CENTRAL NERVOUS SYSTEM: No focal deficits, tone is normal in all 4 extremities. EXTREMITIES: There is no peripheral edema. No clubbing, no cyanosis. Peripheral pulses are intact. - Labs CBC & Chem 7: 06/04/17 15:03 06/04/17 15:03 Labs: Abnormal Lab Results - Last 24 Hours (Table) 06/07/17 06/08/17 06/08/17 Range/Units 20:58 06:58 11:57 POC Glucose (mg/dL) 216 H 133 H 118 H (75-99) mg/dL Microbiology - Last 24 Hours (Table) 06/04/17 15:03 Blood Culture - Preliminary Blood No Growth after 72 hours Assessment and Plan Assessment: Impression: #1 Acute exacerbation of chronic obstructive pulmonary disease, complicated by purulent tracheobronchitis. #2 Acute hypoxic respiratory failure secondary to above. #3 Recent colectomy with colostomy secondary to rectovaginal fistula repair with previous frequent urinary tract infections and diverticular disease. #4 Coronary artery disease, currently inactive and stable. Most recent cardiac catheterization revealed nonocclusive disease. #5 Hypertension. #6 Hyperlipidemia. #7 History of chronic tobacco dependence. #8 Breast cancer with his left mastectomy. #9 Osteoporosis. Plan: The patient was seen and evaluated by Dr. Baker. She is cleared for discharge from the pulmonary standpoint. She'll complete a course of prednisone taper, complete her antibiotics. Continue with albuterol inhalations, Symbicort and Spiriva. She should follow up closely in our office within 1 week's time. She and her daughter encouraged however to call sooner with any recurrence of symptoms or other questions or concerns. I, the cosigning physician, performed a history & physical examination of the patient. Lungs sounds have end expiratory wheeze bilaterally. Maintaining good O2 saturations in the 90s on 2 L/m per nasal cannula. I discussed the assessment and plan of care with my nurse practitioner, Rosi Julio. I attest to the above consultation as dictated by her.
[2017-06-08 15:18] VITALS: BP 126/69; TEMP 96.4
[2017-06-08 16:31] VITALS: PULSE 82
--- NOTE | 2017-06-08 17:58 | P.DS ---
Providers Date of admission: 06/04/17 16:38 Attending physician: Jeimy Sr Consults: 06/04/17 16:40 Consult Physician Urgent Consulting Provider: Kj Bain Reason/Comments: COPD Do you want consulting provider notified?: Yes Primary care physician: Alvin Alejandro [facility] Course: This is a 76-year-old female one of Dr. Alejandro with a previous medical history significant for coronary artery disease status post left heart catheterization with the left heart catheterization that was done in September 2014 that showed ostial lesion of the diagonal branch and mild disease of the RCA, normal ejection fraction, hypertension and hypertensive cardiovascular disease with left ventricular hypertrophy, chronic tobacco use and dependence with chronic obstructive pulmonary disease, GERD. She had a recent hospitalization in January 2017 for a rectovaginal fistula and was seen at that time by Dr. Barnhart and Dr. Burgos with plan for discharge on Cipro and Flagyl and follow up as an outpatient. Patient states that she underwent a fistula repair, colon resection and colostomy placement done at [facility] and has had no further difficulties but takes Miralax daily to avoid constipation. She was most recently admitted in April for chest pain secondary to GERD. Patient complains of shortness of breath that has been going on for the past 4 days along with cough with yellow sputum. No fever or chills. No chest pain. Patient is not home O2 dependent. She does have nebulizer at home. She lives independently and her daughter helps with grocery shopping. Patient came into [facility] emergency center with the above concerns. She was afebrile but hypertensive. EKG was a sinus rhythm with no acute ST changes. White count was normal, electrolytes were within normal limits as well as kidney function. Hemoglobin 14.3. Lactic acid was within normal limits as well as troponin and BNP. Chest x-ray revealed no acute cardiopulmonary process. Radiographic sequela of COPD. Patient was given supplemental oxygen and nebulizer treatment and continued to have some dyspnea for which she was admitted to the hospital, continued on DuoNeb treatments, Solu -Medrol IV, azithromycin and Symbicort and a consult was requested with Dr. Baker. 06/06: Patient is seen and followed by Dr. Baker. She is currently on Solu- Medrol 60 mg every 6 hours which will be decreased to every 8 hours. She has been afebrile. Blood pressure and heart rate elevated. Patient states she did not receive any cough medicine and still this morning. Patient has been reminded that she will need to ask for this. Blood pressure has been elevated for which her evening dose of losartan was discontinued and patient started on Norvasc 10 mg daily. Patient states that she is coughing but now it's dry. Her daughter states that she feels her respiratory status is the same. Blood cultures no growth at 24 hours. 06/07: Patient's breathing status is improving. Pulse ox is 93% on 2 L nasal cannula. She is using cough medicine which is helping her. Solu-Medrol will be decreased to 40 mg every 8 hours. Anticipate discharge home tomorrow. Transfer to the [facility] floor. 06/08: Patient's doing very well today, she is anticipated to be discharged to home, oral prednisone on discharge, patient has a nebulizer medication and unit at home, she does not need any refills. Patient was checked for home 02requirements, and does not need one, ambulatory pulse ox on room air was 91%, patient stated she is doing well without any new concerns, no respiratory events , outpatient follow-up with PCP and Dr. Baker FINAL DIAGNOSIS 1. Acute COPD exacerbation improved on discharge. Continue DuoNeb, Symbicort, Solu-Medrol which is at 40 mg IV every 8 hours, Zithromax, Robitussin as needed , consult with Dr. Baker. IV fluids will be discontinued. 2. Recent history of rectal vaginal fistula, repaired with colon resection and colostomy placement done at [facility], stable. Continue Metamucil. 3. History of coronary artery disease. Stable at this time. 4. Hypertension and hypertensive cardiovascular disease. Continue losartan 100 mg in the morning and 50 mg in the evening . 5. Hyperlipidemia. Low-cholesterol diet. 6. GERD. Continue current Protonix 40 mg orally once every day. 7. Osteoarthritis. Continue meloxicam 15 mg orally once every day. 8. Tobacco use and dependence. Patient recently quit smoking. 9. Osteoporosis. Stable. 10. DVT prophylaxis. Heparin subcutaneously every 12 hours. 11. GI prophylaxis. On Protonix 40 mg orally once every day. 12. Inpatient. Estimated length of stay 2 days. 13. Full code. Discharge condition stable and improved Pending laboratories none Discharge Medication List Gabapentin [Neurontin] 100 mg PO BID 09/17/14 [History] ALPRAZolam [Xanax] 1 mg PO TID PRN 06/16/15 [History] Prochlorperazine [Compazine] 10 mg PO TID PRN #30 tab 06/18/15 [Rx] Losartan Potassium [Cozaar] 100 mg PO QAM 03/06/16 [History] Omeprazole [PriLOSEC] 20 mg PO DAILY 03/06/16 [History] Celecoxib [CeleBREX] 200 mg PO DAILY 06/20/16 [History] Budesonide/Formoterol Fumarate [Symbicort 160-4.5 Mcg Inhaler] 2 puff INHALATION RT-BID 11/12/16 [History] Dicyclomine [Bentyl] 10 mg PO BID 11/12/16 [History] Tiotropium [place] [Spiriva] 1 cap INHALATION RT-DAILY 11/12/16 [History] Acetaminophen Tab [Tylenol] 650 mg PO Q4HR PRN tab 06/08/17 [Rx] Azithromycin [Zithromax] 500 mg PO DAILY #3 tab 06/08/17 [Rx] Ipratropium-Albuterol Nebulize [Duoneb 0.5 mg-3 mg/3 ml Soln] 3 ml INHALATION RT -QID ampul.neb 06/08/17 [Rx] guaiFENesin-DM 100-10MG/5ML [Robitussin DM] 10 ml PO Q6H PRN cup 06/08/17 [Rx] predniSONE 40 mg PO DAILY #15 tab 06/08/17 [Rx] Patient Condition at Discharge: Fair Plan - Discharge Summary Discharge Rx Participant: No New Discharge Prescriptions: New Acetaminophen Tab [Tylenol] 650 mg PO Q4HR PRN tab PRN Reason: Fever And/ Or Pain Azithromycin [Zithromax] 500 mg PO DAILY #3 tab guaiFENesin-DM 100-10MG/5ML [Robitussin DM] 10 ml PO Q6H PRN cup PRN Reason: Cough Ipratropium-Albuterol Nebulize [Duoneb 0.5 mg-3 mg/3 ml Soln] 3 ml INHALATION RT-QID ampul.neb predniSONE 40 mg PO DAILY #15 tab Continue Gabapentin [Neurontin] 100 mg PO BID ALPRAZolam [Xanax] 1 mg PO TID PRN PRN Reason: Anxiety Prochlorperazine [Compazine] 10 mg PO TID PRN #30 tab PRN Reason: Nausea Omeprazole [PriLOSEC] 20 mg PO DAILY Losartan Potassium [Cozaar] 100 mg PO QAM Celecoxib [CeleBREX] 200 mg PO DAILY Budesonide/Formoterol Fumarate [Symbicort 160-4.5 Mcg Inhaler] 2 puff INHALATION RT-BID Dicyclomine [Bentyl] 10 mg PO BID Tiotropium [place] [Spiriva] 1 cap INHALATION RT-DAILY Discontinued Albuterol Nebulized [Ventolin Nebulized] 2.5 mg INHALATION RT-TID Losartan Potassium [Cozaar] 50 mg PO HS Discharge Medication List Gabapentin [Neurontin] 100 mg PO BID 09/17/14 [History] ALPRAZolam [Xanax] 1 mg PO TID PRN 06/16/15 [History] Prochlorperazine [Compazine] 10 mg PO TID PRN #30 tab 06/18/15 [Rx] Losartan Potassium [Cozaar] 100 mg PO QAM 03/06/16 [History] Omeprazole [PriLOSEC] 20 mg PO DAILY 03/06/16 [History] Celecoxib [CeleBREX] 200 mg PO DAILY 06/20/16 [History] Budesonide/Formoterol Fumarate [Symbicort 160-4.5 Mcg Inhaler] 2 puff INHALATION RT-BID 11/12/16 [History] Dicyclomine [Bentyl] 10 mg PO BID 11/12/16 [History] Tiotropium [place] [Spiriva] 1 cap INHALATION RT-DAILY 11/12/16 [History] Acetaminophen Tab [Tylenol] 650 mg PO Q4HR PRN tab 06/08/17 [Rx] Azithromycin [Zithromax] 500 mg PO DAILY #3 tab 06/08/17 [Rx] Ipratropium-Albuterol Nebulize [Duoneb 0.5 mg-3 mg/3 ml Soln] 3 ml INHALATION RT -QID ampul.neb 06/08/17 [Rx] guaiFENesin-DM 100-10MG/5ML [Robitussin DM] 10 ml PO Q6H PRN cup 06/08/17 [Rx] predniSONE 40 mg PO DAILY #15 tab 06/08/17 [Rx] Follow up Appointment(s)/Referral(s): Meredith Baker MD [STAFF PHYSICIAN] - 1 Week (client aware she needs to make followup appointments) [facility], [NON-STAFF] - Alvin Alejandro DO [Primary Care Provider] - 1-2 days (client is aware she needs ot make followup appointment ) Patient Instructions/Handouts: COPD (Chronic Obstructive Pulmonary Disease) (DC ) Discharge Disposition: HOME WITH HOME HEALTH SERVICES
== END 2017-06-08 16:41 | disposition home health service (06) | DRG 190 ==
LOC: EC 14:27 → 6SEL 16:38 → 4MS4W 06-07 14:17
PROVIDERS: ADMIT Internal Medicine; ATTEND Internal Medicine
DX: J44.1 Chronic obstructive pulmonary disease with (acute) exacerbation (principal); J96.01 Acute respiratory failure with hypoxia; I11.9 Hypertensive heart disease without heart failure; E78.5 Hyperlipidemia, unspecified; I25.10 Atherosclerotic heart disease of native coronary artery without angina pectoris; K21.9 Gastro-esophageal reflux disease without esophagitis; M19.90 Unspecified osteoarthritis, unspecified site; F41.9 Anxiety disorder, unspecified; M81.0 Age-related osteoporosis without current pathological fracture; F40.240 Claustrophobia; Z88.6 Allergy status to analgesic agent; Z91.041 Radiographic dye allergy status; Z90.49 Acquired absence of other specified parts of digestive tract; Z93.3 Colostomy status; Z79.899 Other long term (current) drug therapy; Z79.51 Long term (current) use of inhaled steroids; Z82.49 Family history of ischemic heart disease and other diseases of the circulatory system; Z82.5 Family history of asthma and other chronic lower respiratory diseases; Z82.3 Family history of stroke; Z80.9 Family history of malignant neoplasm, unspecified; Z87.891 Personal history of nicotine dependence; Z90.710 Acquired absence of both cervix and uterus; Z98.41 Cataract extraction status, right eye; Z98.42 Cataract extraction status, left eye; Z90.12 Acquired absence of left breast and nipple; Z87.19 Personal history of other diseases of the digestive system; Z87.11 Personal history of peptic ulcer disease; Z85.3 Personal history of malignant neoplasm of breast; Z87.440 Personal history of urinary (tract) infections
CPT/HCPCS: 36415; 71046; 80053; 82550; 82553; 83735; 83880; 84484; 85025; 85610; 85730; 87040; 93005; 94640; 94644; 94660; 94760; 96361; 96365; 96375; 99291

== ENCOUNTER → 2017-07-09 | Outpatient (CLI) | payer MEDICARE ==
--- NOTE | 2017-07-09 10:50 | MM ---
Reason for exam: additional evaluation requested from prior study. Last mammogram was performed 1 year ago. History: Patient is postmenopausal and has history of breast cancer at age 75. Family history of breast cancer in sister. Mastectomy of the left breast, August 08, 2016. Malignant US biopsy breast VAD LT of the left breast, July 06, 2016. Benign excisional biopsy of both breasts. Physical Findings: Nurse did not find any significant physical abnormalities on exam. MG 3D Diag Mammo W/Cad RT CC and MLO view(s) were taken of the right breast. Prior study comparison: June 29, 2016, bilateral MG 3d diag mammo w/cad MORAIMA. April 17, 2013, bilateral digital screening mammo w/CAD. The breast tissue is heterogeneously dense. This may lower the sensitivity of mammography. No significant new findings when compared with previous films. These results were verbally communicated with the patient and result sheet given to the patient on 07/09/17. ASSESSMENT: Benign, BI-RAD 2 RECOMMENDATION: Follow-up diagnostic mammogram of the right breast in 1 year.
== END | disposition home or self-care (01) ==
LOC: RADMAMWWP 09:38
PROVIDERS: ATTEND Internal Medicine Hematology & Oncology
DX: Z08 Encounter for follow-up examination after completed treatment for malignant neoplasm (principal); Z85.3 Personal history of malignant neoplasm of breast
CPT/HCPCS: 77065; G0279

== ENCOUNTER 2018-03-10 05:19 | Observation (INO) | payer MEDICARE ==
[2018-03-10] MEDS ORDERED: IPRATROPIUM-ALBUTEROL 3 ML NEB INHALATION STA ×2 (05:44→08:27)
[2018-03-10] MEDS ORDERED: MORPHINE SULFATE 4 MG/ML SYRINGE IV STA ×2 (05:44→07:16)
[2018-03-10] MEDS ORDERED: diphenhydrAMINE 50 MG/ML 1 ML VIAL IVP STA (05:52)
[2018-03-10] MEDS ORDERED: methylPREDNISolone SOD SUCCI 125 MG/2 ML VIAL IV STA (05:52)
[2018-03-10] MEDS ORDERED: RX INFO: IV CONTRAST WAS GIVEN 1 EACH MISC MISCELLANE PRN (05:52)
[2018-03-10] MEDS ORDERED: FAMOTIDINE 20 MG/2 ML VIAL IV STA (05:52)
--- NOTE | 2018-03-10 05:52 | ED ---
SOB HPI - General Source: patient, family Mode of arrival: ambulatory Limitations: no limitations - History of Present Illness MD Complaint: shortness of breath, cough, chest pain, pain with inspiration -: days(s) Severity: moderate Quality: aching Consistency: constant Improves With: nothing Worsens With: nothing Known History Of: COPD Associated Symptoms: chest pain, cough, sputum production Treatments Prior to Arrival: none <Solis Bates - Last Filed: 03/10/18 06:32> <Kj Salas - Last Filed: 03/10/18 08:58> - General Chief Complaint: Shortness of Breath Stated Complaint: Lump under arm, URI Time Seen by Provider: 03/10/18 05:29 - History of Present Illness Initial Comments: This patient is 77-year-old woman who presents to be evaluated for cough, shortness of breath and right-sided chest pain. The patient states that she has had nearly a week of cough and dyspnea. She had been to her physician's clinic and had what she describes as an antibiotic shot and a pneumonia shot. She states that over the past 2 days the symptoms have seemed to worsen. She also noticed that she has been developing which is calling a lump in the lateral aspect of the right chest wall. (Solis Bates) - Related Data Home Medications Medication Instructions Recorded Confirmed Gabapentin [Neurontin] 100 mg PO BID 09/17/14 03/10/18 ALPRAZolam [Xanax] 1 mg PO TID PRN 06/16/15 03/10/18 Losartan Potassium [Cozaar] 100 mg PO QAM 03/06/16 03/10/18 Omeprazole [PriLOSEC] 20 mg PO DAILY 03/06/16 03/10/18 Celecoxib [CeleBREX] 200 mg PO DAILY 06/20/16 03/10/18 Budesonide/Formoterol Fumarate 2 puff INHALATION RT-BID 11/12/16 03/10/18 [Symbicort 160-4.5 Mcg Inhaler] Dicyclomine [Bentyl] 10 mg PO BID 11/12/16 03/10/18 Tiotropium [place] [Spiriva] 1 cap INHALATION RT-DAILY 11/12/16 03/10/18 Albuterol Nebulized [Ventolin 2.5 mg INHALATION RT-TID 03/10/18 03/10/18 Nebulized] Losartan Potassium 50 mg PO HS 03/10/18 03/10/18 Previous Rx's Medication Instructions Recorded Prochlorperazine [Compazine] 10 mg PO TID PRN #30 tab 06/18/15 Allergies Allergy/AdvReac Type Severity Reaction Status Date / Time aspirin AdvReac Nausea Verified 03/10/18 08:21 codeine AdvReac Nausea Verified 03/10/18 08:21 Iodinated Contrast- Oral and AdvReac Vomiting Verified 03/10/18 08:21 IV Dye [Iodinated Contrast Media - IV Dye] Review of Systems ROS Other: All systems not noted in ROS Statement are negative. Constitutional: Denies: fever, chills Respiratory: Reports: cough, dyspnea, wheezes Cardiovascular: Reports: chest pain. Denies: palpitations, syncope Gastrointestinal: Denies: abdominal pain, vomiting, diarrhea Genitourinary: Denies: dysuria, hematuria Musculoskeletal: Denies: back pain Skin: Denies: rash Neurological: Denies: headache, weakness, numbness <Solis Bates - Last Filed: 03/10/18 06:32> ROS Other: All systems not noted in ROS Statement are negative. <Kj Salas - Last Filed: 03/10/18 08:58> ROS Statement: Those systems with pertinent positive or pertinent negative responses have been documented in the HPI. Past Medical History Past Medical History: Asthma, Cancer, COPD, GERD/Reflux, Hypertension, Osteoarthritis (OA) Additional Past Medical History / Comment(s): COPD, breast cancer with left mastectomy, diverticulosis with diverticular complications and rectovaginal fistula status post fistula repair, colon resection and colostomy placement at [facility], irritable bowel syndrome, peptic ulcer disease, frequent urine checked infections, coronary artery disease with nonocclusive CAD based on the previous cardiac catheterization 2014, hypertension History of Any Multi-Drug Resistant Organisms: None Reported Past Surgical History: Bladder Surgery, Cholecystectomy, Heart Catheterization, Hysterectomy, Orthopedic Surgery Additional Past Surgical History / Comment(s): 09/21/14 cardiac cath with disease -treated medically, cataracts bilaterally, rt rotator cuff, juan m carpal tunnel, bladder suspension, rectocele repair, hemorrhoidectomy, colonoscopies, camera endoscopy, EGD, left masectomy , vaginal rectal fistula repair, bowel resection and colostomy placement Past Anesthesia/Blood Transfusion Reactions: No Reported Reaction Additional Past Anesthesia/Blood Transfusion Reaction / Comment(s): Pt is claustrophobic. Past Psychological History: Anxiety Smoking Status: Former smoker Past Alcohol Use History: None Reported Past Drug Use History: None Reported - Past Family History Father Family Medical History: COPD Additional Family Medical History / Comment(s): Father is . Mother Family Medical History: CVA/TIA, Hypertension Additional Family Medical History / Comment(s): at age 91 Brother(s) Family Medical History: Cancer, Myocardial Infarction ([place]) Daughter(s) Family Medical History: No Reported History Son(s) Family Medical History: No Reported History Sister(s) Family Medical History: Cancer <Solis Bates - Filed: 03/10/18 06:32> General Exam Limitations: no limitations General appearance: alert, in no apparent distress, cachectic Head exam: Present: atraumatic, normocephalic Eye exam: Present: normal appearance. Absent: scleral icterus, conjunctival injection Respiratory exam: Present: wheezes, chest wall tenderness, decreased breath sounds. Absent: rales, rhonchi, stridor Cardiovascular Exam: Present: regular rate, normal rhythm, normal heart sounds. Absent: systolic murmur, diastolic murmur, rubs, gallop GI/Abdominal exam: Present: soft, other (There is a colostomy in the left abdomen which is normal in appearance.). Absent: distended, tenderness, guarding, rebound, rigid, mass Extremities exam: Present: normal inspection, normal capillary refill. Absent: pedal edema, calf tenderness Back exam: Present: normal inspection. Absent: CVA tenderness (R), CVA tenderness (L) Neurological exam: Present: alert Skin exam: Present: warm, dry, intact, normal color. Absent: rash <Solis Bates - Last Filed: 03/10/18 06:32> Vital Signs 03/10/18 03/10/18 03/10/18 05:22 06:15 06:23 Temperature 97.8 F Pulse Rate 89 80 86 Respiratory 20 Rate Blood Pressure 197/99 O2 Sat by Pulse 94 L Oximetry 03/10/18 03/10/18 03/10/18 07:30 08:30 08:31 Temperature Pulse Rate 80 81 84 Respiratory 15 18 Rate Blood Pressure 196/96 184/83 O2 Sat by Pulse 90 L 88 L Oximetry 03/10/18 08:45 Temperature Pulse Rate 85 Respiratory Rate Blood Pressure O2 Sat by Pulse Oximetry Medical Decision Making - Lab Data Result diagrams: 03/10/18 06:03 03/10/18 06:03 - EKG Data EKG shows normal: sinus rhythm, axis (Normal), intervals (Normal), QRS complexes (Normal) Rate: normal (Rate 80 bpm) <Solis Bates - Last Filed: 03/10/18 06:32> - Lab Data Result diagrams: 03/10/18 06:03 03/10/18 06:03 <Kj Salas - Last Filed: 03/10/18 08:58> - Lab Data Lab Results 03/10/18 03/10/18 03/10/18 Range/Units 06:03 06:03 06:03 WBC 15.8 H (3.8-10.6) k/uL RBC 5.09 (3.80-5.40) m/uL Hgb 14.7 (11.4-16.0) gm/dL Hct 44.0 (34.0-46.0) % MCV 86.4 (80.0-100.0) fL MCH 28.9 (25.0-35.0) pg MCHC 33.4 (31.0-37.0) g/dL RDW 14.0 (11.5-15.5) % Plt Count 280 (150-450) k/uL Neutrophils % 79 % Lymphocytes % 12 % Monocytes % 6 % Eosinophils % 0 % Basophils % 0 % Neutrophils # 12.5 H (1.3-7.7) k/uL Lymphocytes # 1.9 (1.0-4.8) k/uL Monocytes # 0.9 (0-1.0) k/uL Eosinophils # 0.0 (0-0.7) k/uL Basophils # 0.0 (0-0.2) k/uL PT (9.0-12.0) sec INR (<1.2) APTT (22.0-30.0) sec Sodium 139 (137-145) mmol/L Potassium 4.3 (3.5-5.1) mmol/L Chloride 106 (98-107) mmol/L Carbon Dioxide 30 (22-30) mmol/L Anion Gap 3 mmol/L BUN 30 H (7-17) mg/dL Creatinine 0.56 (0.52-1.04) mg/dL Est GFR (CKD-EPI)AfAm >90 (>60 ml/min/1.73 sqM) Est GFR (CKD-EPI)NonAf >90 (>60 ml/min/1.73 sqM) Glucose 89 (74-99) mg/dL Calcium 9.8 (8.4-10.2) mg/dL Total Bilirubin 0.6 (0.2-1.3) mg/dL AST 19 (14-36) U/L ALT 30 (9-52) U/L Alkaline Phosphatase 75 (38-126) U/L Total Creatine Kinase 88 (30-135) U/L CK-MB (CK-2) 2.6 H (0.0-2.4) ng/mL CK-MB (CK-2) Rel Index 3.0 Troponin I <0.012 (0.000-0.034) ng/mL Total Protein 6.1 L (6.3-8.2) g/dL Albumin 3.5 (3.5-5.0) g/dL 03/10/18 Range/Units 06:03 WBC (3.8-10.6) k/uL RBC (3.80-5.40) m/uL Hgb (11.4-16.0) gm/dL Hct (34.0-46.0) % MCV (80.0-100.0) fL MCH (25.0-35.0) pg MCHC (31.0-37.0) g/dL RDW (11.5-15.5) % Plt Count (150-450) k/uL Neutrophils % % Lymphocytes % % Monocytes % % Eosinophils % % Basophils % % Neutrophils # (1.3-7.7) k/uL Lymphocytes # (1.0-4.8) k/uL Monocytes # (0-1.0) k/uL Eosinophils # (0-0.7) k/uL Basophils # (0-0.2) k/uL PT 10.0 (9.0-12.0) sec INR 1.0 (<1.2) APTT 22.4 (22.0-30.0) sec Sodium (137-145) mmol/L Potassium (3.5-5.1) mmol/L Chloride (98-107) mmol/L Carbon Dioxide (22-30) mmol/L Anion Gap mmol/L BUN (7-17) mg/dL Creatinine (0.52-1.04) mg/dL Est GFR (CKD-EPI)AfAm (>60 ml/min/1.73 sqM) Est GFR (CKD-EPI)NonAf (>60 ml/min/1.73 sqM) Glucose (74-99) mg/dL Calcium (8.4-10.2) mg/dL Total Bilirubin (0.2-1.3) mg/dL AST (14-36) U/L ALT (9-52) U/L Alkaline Phosphatase (38-126) U/L Total Creatine Kinase (30-135) U/L CK-MB (CK-2) (0.0-2.4) ng/mL CK-MB (CK-2) Rel Index Troponin I (0.000-0.034) ng/mL Total Protein (6.3-8.2) g/dL Albumin (3.5-5.0) g/dL Disposition <Solis Bates - Last Filed: 03/10/18 06:32> Is patient prescribed a controlled substance at d/c from ED?: No Decision to Admit Reason: Admit from EC Decision Date: 03/10/18 Decision Time: 08:58 <Kj Salas - Last Filed: 03/10/18 08:58> Clinical Impression: COPD with acute exacerbation, Axillary mass Disposition: ADMITTED IP TO THIS HOSP Condition: Stable Referrals: Alvin Alejandro DO [Primary Care Provider] - 1-2 days
[2018-03-10 06:15] LABS: Basophils % (A) 0 %; Eosinophils % (A) 0 %; HGB 14.7 gm/dL (11.4-16.0); Lymphocytes # (A) 1.9 k/uL (1.0-4.8); Lymphocytes % (A) 12 %; MCH 28.9 pg (25.0-35.0); MCHC 33.4 g/dL (31.0-37.0); MCV 86.4 fL (80.0-100.0); Mean Platelet Volume 6.1; Monocytes # (A) 0.9 k/uL (0-1.0); Monocytes % (A) 6 %; Neutrophils # (A) 12.5 k/uL (1.3-7.7); Neutrophils % (A) 79 %; Platelet Count 280 k/uL (150-450); RBC 5.09 m/uL (3.80-5.40); WBC 15.8 k/uL (3.8-10.6)
[2018-03-10 06:24] LABS: Partial Thromboplastin Time 22.4 sec (22.0-30.0)
[2018-03-10 06:25] LABS: ALT 30 U/L (9-52); AST 19 U/L (14-36); Albumin 3.5 g/dL (3.5-5.0); Alkaline Phosphatase 75 U/L (38-126); Anion Gap 3 mmol/L; Blood Urea Nitrogen 30 mg/dL (7-17); Calcium 9.8 mg/dL (8.4-10.2); Carbon Dioxide 30 mmol/L (22-30); Chloride 106 mmol/L (98-107); Glucose 89 mg/dL (74-99); Potassium 4.3 mmol/L (3.5-5.1); Sodium 139 mmol/L (137-145); Total Bilirubin 0.6 mg/dL (0.2-1.3); Total Protein 6.1 g/dL (6.3-8.2)
--- NOTE | 2018-03-10 06:34 | XR ---
EXAM: XR Chest, 2 Views CLINICAL HISTORY: ITS.REASON XR Reason: difficulty breathing TECHNIQUE: Frontal and lateral views of the chest. COMPARISON: 06/04/17 FINDINGS: Lungs: Minimal apical fibrotic changes. No focal infiltrate. Pleural space: Unremarkable. No pneumothorax. Heart: Unremarkable. No cardiomegaly. Mediastinum: Atherosclerosis of the aorta. Bones/joints: Degenerative changes of the spine. Soft tissues: Left axillary surgical clips. IMPRESSION: Minimal apical fibrotic changes. No focal infiltrate.
[2018-03-10 06:38] LABS: Creatine Kinase 88 U/L (30-135)
[2018-03-10 06:51] LABS: Creatine Kinase MB 2.6 ng/mL (0.0-2.4); Troponin I <0.012 ng/mL (0.000-0.034)
--- NOTE | 2018-03-10 07:21 | CT ---
EXAMINATION TYPE: CT chest w con DATE OF EXAM: 03/10/2018 COMPARISON: CT abdomen pelvis dated 01/17/2017 HISTORY: Lump under Rt arm, history of Lt breast CA CT DLP: 156.7 mGycm. Automated Exposure Control for Dose Reduction was Utilized. TECHNIQUE: CT scan of the thorax is performed following with IV Contrast, patient injected with 100 mL of Isovue 300. FINDINGS: LUNGS: Biapical pleural-parenchymal thickening is nodular with extensive emphysematous changes throug hout the lungs. Within the right upper lobe there is a 6 mm solid pulmonary nodule on series 204 imag e 18. Few areas of distal mucous plugging are seen within the lingula and very mild peribronchial cuf fing is present throughout. Lungs are grossly clear, there is no concerning parenchymal mass or nodul e identified. There is no pleural effusion or pneumothorax seen. The tracheobronchial tree is villa nt. MEDIASTINUM: There are no greater than 1 cm hilar or mediastinal lymph nodes. The left vertebral george ry originates directly from the aortic arch, normal variant. No pericardial effusion is seen. No c entral pulmonary embolism or thoracic aortic dissection. Moderate calcific and noncalcific atheromato us plaquing of the thoracic aorta. Right and left main pulmonary arteries are enlarged suggesting und erlying pulmonary arterial hypertension. No enlarged right axillary lymph nodes are noted. OTHER: Left mastectomy with axillary node dissection has been performed. There is slight pectus excav atum deformity impressing upon the right ventricle. There is a very slightly mottled appearance to th e bone marrow without focal suspicious lesion. Finding may be on the basis of osseous demineralizatio n. 8 mm splenic arterial pseudoaneurysm is present. There is redemonstration of pancreatic ductal pro minence. Extra hepatic biliary ductal dilatation is seen that is likely postsurgical as there is surg ical absence of the gallbladder. Right hepatic lobe cyst as seen on image 55 of series 201 with small er 3 mm lesion that is too small to accurately characterize near the dome of the diaphragm. A very sm all hiatal hernia is incidentally seen. IMPRESSION: 1. No CT finding to correspond to the patient's right palpable abnormality however targeted ultrasoun d and diagnostic right mammographic workup are recommended. 2. Extensive emphysematous changes and 6 mm solid right upper lobe pulmonary nodule for which short-t erm follow-up is recommended in 3 months given this patient's high risk nature. 3. Findings suggesting underlying pulmonary arterial hypertension. 4. Minimal diffuse peribronchial cuffing and lingular mucous plugging, likely reactive airway disease in this patient with underlying emphysematous change.
[2018-03-10] MEDS ORDERED: IPRATROPIUM-ALBUTEROL 3 ML NEB INHALATION PRN (08:53)
--- NOTE | 2018-03-10 10:19 | US ---
EXAMINATION TYPE: US axilla RT DATE OF EXAM: 03/10/2018 COMPARISON: CT chest of the same date. CLINICAL HISTORY: soft tissue mass. Hx of breast cancer. Patient states lump came on over night. Pa infsol. TECHNIQUE/FINDINGS: Right axilla palpable scanned. Heterogenous 5.8 x 4.5 x 3.7 seen or mass seen wit h minimal internal vascular flow, best seen inferiorly. No additional masses are identified. IMPRESSION: 5.8 cm solid right axillary mass with internal vascular flow for which ultrasound-guided biopsy is recommended.
[2018-03-10] MEDS: LEVOFLOXACIN 500 MG TAB PO SCH (10:34)
[2018-03-10] MEDS: methylPREDNISolone SOD SUCCI 125 MG/2 ML VIAL IV SCH ×3 (12:45→23:21)
[2018-03-10] MEDS ORDERED: PROCHLORPERAZINE 10 MG TAB PO PRN (13:04)
[2018-03-10] MEDS ORDERED: ALPRAZolam 1 MG TAB PO PRN (13:04)
[2018-03-10] MEDS ORDERED: HYDROcodone/APAP 5-325MG 1 EACH TAB PO PRN (13:04)
[2018-03-10] MEDS: IPRATROPIUM-ALBUTEROL 3 ML NEB INHALATION SCH ×3 (13:09→18:30)
[2018-03-10] MEDS: KETOROLAC 30 MG/ML 1 ML VIAL IVP SCH ×3 (14:03→23:20)
--- NOTE | 2018-03-10 16:32 | P.HPIM ---
History of Present Illness H&P Date: 03/10/18 77 years old female patient of Dr. Alejandro with past medical history of breast cancer status post left mastectomy 1 year ago, asthma, COPD, hypertension, osteoarthritis, history of irritable bowel syndrome, peptic ulcer disease, coronary artery disease with nonocclusive coronary artery disease based on previous cardiac cath 2015 presents in with the worsening of shortness of breath associated with pain in the right axilla. Patient states she has been treated for pneumonia as outpatient with no improvement in her shortness of breath. She continues to smoke intermittently and has last smoked a few days ago. What is obtained in the ER suggestive pulse rate of 86, respiratory rate 19, blood pressure 146/75, oxygen saturation of 94 on room air. On evaluation patient had difficulty completing sentences due to shortness of breath associated with productive cough. Patient is sore in the right axilla from a mass that she noticed to grow over the weekend. CT chest was obtained that suggested extensive emphysematous changes with 6 L solid right upper lobe pulmonary nodule, pulmonary arterial hypertension, peribronchial cuffing and lingular mucous plugging secondary to reactive airway disease. Ultrasound of the chest was obtained suggestive also 5.8 solid right axillary mass with internal vascular flow. Dr. Guardado was consulted as patient stated has had done the left mastectomy. Continue Solu-Medrol 60 every 6 with DuoNeb as needed for shortness of breath. Sputum culture will be obtained. Review of Systems Constitutional: Denies chills, Denies fever, Denies lethargy, Denies malaise, Denies poor appetite, Denies weakness, Denies weight loss Eyes: denies decreased vision, denies diplopia, denies discharge, denies pain Ears: deny: decreased hearing Ears, nose, mouth and throat: Denies dental pain, Denies headache, Denies nasal discharge, Denies nose pain Cardiovascular: Denies chest pain, Denies decreased exercise tolerance, Denies edema, Denies high blood pressure, Denies irregular heart beat, Denies palpitations, Denies paroxysmal nocturnal dyspnea, Denies rapid heart beat, Denies shortness of breath Respiratory: Endorses congestion, endorses cough with sputum, endorses endorses dyspnea, Denies home oxygen, Denies wheezing Gastrointestinal: Denies abdominal pain, Denies change in bowel habits, Denies coffee ground emesis, Denies early satiety, Denies excessive gas, Denies heartburn, Denies hematemesis, Denies hematochezia, Denies loss of appetite, Denies nausea, Denies vomiting Genitourinary: Denies dysuria, Denies flank pain, Denies kidney stones, Denies menorrhagia, Denies urgency, Denies urinary frequency Musculoskeletal: Denies gait dysfunction, Denies limitation of motion, Denies morning stiffness, Denies muscle cramps endorses pain in the axilla Integumentary: Denies rash, Denies wounds, Denies brittle nails, Denies change in hair/nails, Denies darkening of skin Neurological: Denies balance difficulties, Denies change in speech, Denies double vision, Denies gait dysfunction, Denies loss of vision, Denies motor disturbance, Denies numbness, Denies paralysis, Denies paresthesias, Denies seizures Psychiatric: Denies anxiety, Denies depression Endocrine: Denies excessive sweating, Denies excessive thirst, Denies high blood sugars, Denies palpitations Hematologic/Lymphatic: Denies easy bruising, Denies lymphadenopathy Past Medical History Past Medical History: Asthma, Coronary Artery Disease (CAD), Cancer, COPD, GERD/ Reflux, Hypertension, Osteoarthritis (OA), Pneumonia Additional Past Medical History / Comment(s): L breast cancer with left mastectomy, diverticulosis with diverticular complications and rectovaginal fistula status post fistula repair, colon resection and colostomy placement at [facility], irritable bowel syndrome, peptic ulcer disease, generalized arthritis-multiple joints, leg cramps, frequent UTIs, migraines in the past, bronchitis, allergic rhinitis. History of Any Multi-Drug Resistant Organisms: None Reported Past Surgical History: Adenoidectomy, Appendectomy, Bladder Surgery, Cholecystectomy, Heart Catheterization, Hysterectomy, Orthopedic Surgery, Tonsillectomy Additional Past Surgical History / Comment(s): 09/21/14 cardiac cath with disease -treated medically, cataracts removed bilaterally with lens implants, rt rotator cuff, juan m carpal tunnel, bladder suspension, rectocele repair, hemorrhoidectomy, colonoscopies, camera endoscopy, EGD, left masectomy , vaginal rectal fistula repair, bowel resection and colostomy placement Past Anesthesia/Blood Transfusion Reactions: No Reported Reaction Additional Past Anesthesia/Blood Transfusion Reaction / Comment(s): Pt is claustrophobic. Smoking Status: Current some day smoker - Past Family History Father Family Medical History: COPD Additional Family Medical History / Comment(s): Father is . Mother Family Medical History: CVA/TIA, Hypertension Additional Family Medical History / Comment(s): at age 91 Brother(s) Family Medical History: Cancer, Myocardial Infarction ([place]) Daughter(s) Family Medical History: No Reported History Son(s) Family Medical History: No Reported History Sister(s) Family Medical History: Cancer Additional Family Medical History / Comment(s): Sister had metastatic brease cancer and is . Medications and Allergies Home Medications Medication Instructions Recorded Confirmed Type Gabapentin [Neurontin] 100 mg PO BID 09/17/14 03/10/18 History ALPRAZolam [Xanax] 1 mg PO TID PRN 06/16/15 03/10/18 History Prochlorperazine [Compazine] 10 mg PO TID PRN #30 tab 06/18/15 03/10/18 Rx Losartan Potassium [Cozaar] 100 mg PO QAM 03/06/16 03/10/18 History Omeprazole [PriLOSEC] 20 mg PO DAILY 03/06/16 03/10/18 History Celecoxib [CeleBREX] 200 mg PO DAILY 06/20/16 03/10/18 History Budesonide/Formoterol Fumarate 2 puff INHALATION RT-BID 11/12/16 03/10/18 History [Symbicort 160-4.5 Mcg Inhaler] Dicyclomine [Bentyl] 10 mg PO BID 11/12/16 03/10/18 History Tiotropium [place] [Spiriva] 1 cap INHALATION RT-DAILY 11/12/16 03/10/18 History Albuterol Nebulized [Ventolin 2.5 mg INHALATION RT-TID 03/10/18 03/10/18 History Nebulized] Losartan Potassium 50 mg PO HS 03/10/18 03/10/18 History Allergies Allergy/AdvReac Type Severity Reaction Status Date / Time aspirin AdvReac Nausea Verified 03/10/18 08:21 codeine AdvReac Nausea Verified 03/10/18 08:21 Iodinated Contrast- Oral and AdvReac Vomiting Verified 03/10/18 08:21 IV Dye [Iodinated Contrast Media - IV Dye] Physical Exam Vitals: Vital Signs Temp Pulse Resp BP Pulse Ox 03/10/18 13:20 87 03/10/18 13:09 93 03/10/18 12:47 89 18 141/74 94 L 03/10/18 11:00 91 18 158/84 03/10/18 10:30 86 19 146/75 94 L 03/10/18 10:00 89 16 158/139 93 L 03/10/18 09:30 86 22 163/78 93 L 03/10/18 08:45 85 03/10/18 08:31 84 03/10/18 08:30 81 18 184/83 88 L 03/10/18 07:30 80 15 196/96 90 L 03/10/18 06:23 86 03/10/18 06:15 80 03/10/18 05:22 97.8 F 89 20 197/99 94 L Intake and Output 03/10/18 03/10/18 03/10/18 06:59 14:59 22:59 Other: Weight 38.555 kg - Constitutional General appearance: cooperative, no acute distress, thin frail-appearing female - EENT Eyes: anicteric sclerae, PERRLA, normal appearance ENT: hearing grossly normal - Neck Neck: no lymphadenopathy, normal ROM, no other, no rigidity, no stridor, no thyromegaly - Respiratory Respiratory: bilateral: Decreased air entry with bronchial breath sounds. - Cardiovascular Rhythm: regular Heart sounds: normal: S1, S2 Abnormal Heart Sounds: no systolic murmur, no diastolic murmur, no rub, no S3 Gallop, no S4 Gallop, no click, no other - Gastrointestinal General gastrointestinal: normal bowel sounds, soft - Integumentary Integumentary: no rash 10 cm mass in the right axilla extending to the lateral margin of the right breast with overlying ecchymosis - Neurologic Neurologic: CNII-XII intact - Musculoskeletal Musculoskeletal: gait normal, strength equal bilaterally - Psychiatric Psychiatric: A&O x's 3, appropriate affect Results CBC & Chem 7: 03/10/18 06:03 03/10/18 06:03 Labs: Abnormal Lab Results - Last 24 Hours (Table) 03/10/18 03/10/18 03/10/18 Range/Units 06:03 06:03 06:03 WBC 15.8 H (3.8-10.6) k/uL Neutrophils # 12.5 H (1.3-7.7) k/uL BUN 30 H (7-17) mg/dL CK-MB (CK-2) 2.6 H (0.0-2.4) ng/mL Total Protein 6.1 L (6.3-8.2) g/dL Thrombosis Risk Factor Assmnt - DVT/VTE Prophylaxis DVT/VTE Prophylaxis: Pharmacologic Prophylaxis ordered - Choose All That Apply Any of the Below Risk Factors Present?: Yes Each Factor Represents 1 point: Abnormal pulmonary function (COPD), Hx of IBD Other Risk Factors: Yes Each Risk Factor Represents 2 Points: Malignancy Each Risk Factor Represents 3 Points: Age 75 years or older Other congenital or acquired thrombophilia - If yes, enter type in comment: No Thrombosis Risk Factor Assessment Total Risk Factor Score: 7 Thrombosis Risk Factor Assessment Level: High Risk Assessment and Plan Plan: #1 acute COPD exacerbation. Continue Solu-Medrol 60 every 8 6 IV. Continue DuoNeb. Sputum culture to be obtained. Continue Symbicort. Levaquin 500 mg by mouth daily. #2 right axillary mass unclear etiology. Ultrasound-guided biopsy may be needed to evaluate the pathology. Patient has history of breast cancer status post mastectomy of the left follows Dr. Burgos. Consult surgery. Pain control with Boyce every 8 #3 breast cancer status post mastectomy 1 year ago no lymphadenopathy on examination. No heterogenous mass is concerning for cancer as patient has a history of cancer in the past. #4 history of irritable bowel syndrome continue Bentyl 10 mg twice a day #5 history of coronary artery disease with nonocclusive coronary arteries on cardiac cath 2014. Continue aspirin daily #6 anxiety continue Xanax 1 mg 3 times a day as needed 7 GI prophylaxis and Protonix 40 mg by mouth daily #8 chronic nausea continue Compazine 10 mg 3 times a day as needed Code status full code
[2018-03-10] MEDS: SYMBICORT 160-4.5 MCG INHALER INHALATION SCH (18:30)
[2018-03-10] MEDS: GABAPENTIN 100 MG CAP PO SCH (20:26)
[2018-03-10] MEDS: HEPARIN SODIUM,PORCINE 5,000 UNIT/ML 1 ML VIAL SQ SCH (20:26)
[2018-03-10] MEDS: DICYCLOMINE 10 MG CAP PO SCH (20:26)
[2018-03-10] MEDS ORDERED: LOSARTAN 50 MG TAB PO SCH (21:00)
[2018-03-11] MEDS: methylPREDNISolone SOD SUCCI 125 MG/2 ML VIAL IV SCH ×2 (05:27→13:16)
[2018-03-11] MEDS: KETOROLAC 30 MG/ML 1 ML VIAL IVP SCH ×2 (05:27→13:18)
[2018-03-11] MEDS ORDERED: PANTOPRAZOLE 40 MG TABLET PO SCH (07:30)
[2018-03-11] MEDS: IPRATROPIUM-ALBUTEROL 3 ML NEB INHALATION SCH ×3 (07:46→15:53)
[2018-03-11] MEDS: SYMBICORT 160-4.5 MCG INHALER INHALATION SCH (07:46)
[2018-03-11] MEDS ORDERED: NON-FORMULARY DRUG (Tiotropium Bromide [Spiriva] 1 CAP) INHALATION SCH (08:00)
[2018-03-11] MEDS ORDERED: MELOXICAM 7.5 MG TAB PO SCH (09:00)
[2018-03-11] MEDS ORDERED: LOSARTAN 50 MG TAB PO SCH (09:00)
[2018-03-11] MEDS: GABAPENTIN 100 MG CAP PO SCH (09:13)
[2018-03-11] MEDS: LEVOFLOXACIN 500 MG TAB PO SCH (09:13)
[2018-03-11] MEDS: DICYCLOMINE 10 MG CAP PO SCH (09:16)
[2018-03-11] MEDS: HEPARIN SODIUM,PORCINE 5,000 UNIT/ML 1 ML VIAL SQ SCH (09:16)
[2018-03-11 09:18] VITALS: BMI 16.6
[2018-03-11 12:09] VITALS: TEMP 98.2
[2018-03-11 12:59] VITALS: BP 164/72; RESP 16
--- NOTE | 2018-03-11 13:19 | P.GSCN ---
History of Present Illness Consult date: 03/11/18 Reason for Consult: Right chest wall hematoma History of present illness: Patient comes to the hospital after experiencing rather sudden onset pain right lateral chest wall. Patient was found to have bruising in that site. This was precipitated by violent coughing from exacerbation of COPD and recent pneumonia. She does not take blood thinners. No trauma. CAT scan showed masslike area suspicious for malignancy. Patient has a history of left breast cancer in the past. Ultrasound core biopsy was advised by radiology. Patient doing better at this time. She is tolerating her diet. Her shortness of breath is improved. Review of Systems The patient denies any acute changes in vision or hearing, no dysphagia or odynophagia, no dysuria or hematuria, no headache, no runny nose, no rectal bleeding or melena, no unexplained weight loss Past Medical History Past Medical History: Asthma, Coronary Artery Disease (CAD), Cancer, COPD, GERD/ Reflux, Hypertension, Osteoarthritis (OA), Pneumonia Additional Past Medical History / Comment(s): L breast cancer with left mastectomy, diverticulosis with diverticular complications and rectovaginal fistula status post fistula repair, colon resection and colostomy placement at [facility], irritable bowel syndrome, peptic ulcer disease, generalized arthritis-multiple joints, leg cramps, frequent UTIs, migraines in the past, bronchitis, allergic rhinitis. History of Any Multi-Drug Resistant Organisms: None Reported Past Surgical History: Adenoidectomy, Appendectomy, Bladder Surgery, Cholecystectomy, Heart Catheterization, Hysterectomy, Orthopedic Surgery, Tonsillectomy Additional Past Surgical History / Comment(s): 09/21/14 cardiac cath with disease -treated medically, cataracts removed bilaterally with lens implants, rt rotator cuff, juan m carpal tunnel, bladder suspension, rectocele repair, hemorrhoidectomy, colonoscopies, camera endoscopy, EGD, left masectomy , vaginal rectal fistula repair, bowel resection and colostomy placement Past Anesthesia/Blood Transfusion Reactions: No Reported Reaction Additional Past Anesthesia/Blood Transfusion Reaction / Comm: Pt is claustrophobic. Smoking Status: Current some day smoker - Past Family History Father Family Medical History: COPD Additional Family Medical History / Comment(s): Father is . Mother Family Medical History: CVA/TIA, Hypertension Additional Family Medical History / Comment(s): at age 91 Brother(s) Family Medical History: Cancer, Myocardial Infarction ([place]) Daughter(s) Family Medical History: No Reported History Son(s) Family Medical History: No Reported History Sister(s) Family Medical History: Cancer Additional Family Medical History / Comment(s): Sister had metastatic brease cancer and is . Medications and Allergies Home Medications Medication Instructions Recorded Confirmed Type Gabapentin [Neurontin] 100 mg PO BID 09/17/14 03/10/18 History ALPRAZolam [Xanax] 1 mg PO TID PRN 06/16/15 03/10/18 History Prochlorperazine [Compazine] 10 mg PO TID PRN #30 tab 06/18/15 03/10/18 Rx Losartan Potassium [Cozaar] 100 mg PO QAM 03/06/16 03/10/18 History Omeprazole [PriLOSEC] 20 mg PO DAILY 03/06/16 03/10/18 History Celecoxib [CeleBREX] 200 mg PO DAILY 06/20/16 03/10/18 History Budesonide/Formoterol Fumarate 2 puff INHALATION RT-BID 11/12/16 03/10/18 History [Symbicort 160-4.5 Mcg Inhaler] Dicyclomine [Bentyl] 10 mg PO BID 11/12/16 03/10/18 History Tiotropium [place] [Spiriva] 1 cap INHALATION RT-DAILY 11/12/16 03/10/18 History Albuterol Nebulized [Ventolin 2.5 mg INHALATION RT-TID 03/10/18 03/10/18 History Nebulized] Losartan Potassium 50 mg PO HS 03/10/18 03/10/18 History Allergies Allergy/AdvReac Type Severity Reaction Status Date / Time aspirin AdvReac Nausea Verified 03/10/18 08:21 codeine AdvReac Nausea Verified 03/10/18 08:21 Iodinated Contrast- Oral and AdvReac Vomiting Verified 03/10/18 08:21 IV Dye [Iodinated Contrast Media - IV Dye] Surgical - Exam Vital Signs Temp Pulse Resp BP Pulse Ox 97.8 F 89 20 197/99 94 L 03/10/18 05:22 03/10/18 05:22 03/10/18 05:22 03/10/18 05:22 03/10/18 05:22 Physical exam: General: Well-developed, well-nourished HEENT: Normocephalic, sclerae nonicteric Abdomen: Nontender, nondistended Chest: Hematoma overlying the right latissimus dorsi, mildly tender, no definite adenopathy palpable Extremities: No edema Neuro: Alert and oriented Results - Labs 03/10/18 06:03 03/10/18 06:03 Microbiology - Last 24 Hours (Table) 03/11/18 04:25 Gram Stain - Preliminary Sputum Assessment and Plan (1) Hematoma of right chest wall Narrative/Plan: Biopsy obtained to evaluate for possible underlying malignancy. Resume diet. Patient may be discharged prior to final pathology report being obtained. Current Visit: Yes Status: Acute Code(s): S20.211A - CONTUSION OF RIGHT FRONT WALL OF THORAX, INITIAL ENCOUNTER SNOMED Code(s): 727068970
--- NOTE | 2018-03-11 13:49 | US ---
ULTRASOUND GUIDED CORE BIOPSY RIGHT AXILLA MASS: CLINICAL HISTORY: Right axilla mass FINDINGS: The procedure was explained to the patient. The risks, complications, benefits and alternatives were discussed and any questions were answered. Informed consent was obtained. Patient was placed supin e on the ultrasound table and prepped and draped in the usual sterile fashion. Utilizing a 18-gauge core biopsy needle 3 passes were made into the right axilla mass. Patient was stable throughout the procedure. Pathology is pending. All elements of maximal barrier technique were utilized. IMPRESSION: 1. Successful ultrasound guided core biopsy right axilla mass.
--- NOTE | 2018-03-11 15:00 | P.DS ---
Providers Date of admission: 03/10/18 08:53 Expected date of discharge: 03/11/18 Attending physician: Inés Chapman MD Consults: 03/10/18 13:03 Consult Physician Routine Consulting Provider: Angel Burgos Consult Reason/Comments: mass right axilla Do you want consulting provider notified?: Yes [facility]: 77 years old female patient of Dr. Alejandro with past medical history of breast cancer status post left mastectomy 1 year ago, asthma, COPD, hypertension, osteoarthritis, history of irritable bowel syndrome, peptic ulcer disease, coronary artery disease with nonocclusive coronary artery disease based on previous cardiac cath 2015 presents in with the worsening of shortness of breath associated with pain in the right axilla. Patient states she has been treated for pneumonia as outpatient with no improvement in her shortness of breath. She continues to smoke intermittently and has last smoked a few days ago. What is obtained in the ER suggestive pulse rate of 86, respiratory rate 19, blood pressure 146/75, oxygen saturation of 94 on room air. On evaluation patient had difficulty completing sentences due to shortness of breath associated with productive cough. Patient is sore in the right axilla from a mass that she noticed to grow over the weekend. CT chest was obtained that suggested extensive emphysematous changes with 6 L solid right upper lobe pulmonary nodule, pulmonary arterial hypertension, peribronchial cuffing and lingular mucous plugging secondary to reactive airway disease. Ultrasound of the chest was obtained suggestive also 5.8 solid right axillary mass with internal vascular flow. Dr. Guardado was consulted as patient stated has had done the left mastectomy. Continue Solu-Medrol 60 every 6 with DuoNeb as needed for shortness of breath. Sputum culture will be obtained. 03/11: Patient has been seen by Dr. Burgos and he ordered an ultrasound-guided core biopsy of the right axillary mass which was done today by interventional radiology. Pathology was obtained and will be pending. Patient has been cleared for discharge. Her shortness of breath is improved. Blood pressure is elevated for which medications will be changed. Patient will be discharged home today in stable condition. Discharge diagnoses: #1 acute COPD exacerbation. #2 right axillary mass unclear etiology. #3 breast cancer status post mastectomy 1 year ago no lymphadenopathy on examination. #4 history of irritable bowel syndrome #5 history of coronary artery disease with nonocclusive coronary arteries on cardiac cath 2014. #6 generalized anxiety disorder 7 chronic nausea Discharge plan: Home Impression and plan of care have been directed as dictated by the signing physician. Keren Daniels nurse practitioner acting as scribe for signing physician. Patient Condition at Discharge: Good Plan - Discharge Summary Discharge Rx Participant: No New Discharge Prescriptions: New Levofloxacin [Levaquin] 500 mg PO DAILY #4 tab Losartan/Hydrochlorothiazide [Losartan-Hctz 100-25 mg Tab] 1 each PO DAILY # 30 tablet predniSONE 40 mg PO DAILY #5 tab Continue Gabapentin [Neurontin] 100 mg PO BID ALPRAZolam [Xanax] 1 mg PO TID PRN PRN Reason: Anxiety Prochlorperazine [Compazine] 10 mg PO TID PRN #30 tab PRN Reason: Nausea Omeprazole [PriLOSEC] 20 mg PO DAILY Budesonide/Formoterol Fumarate [Symbicort 160-4.5 Mcg Inhaler] 2 puff INHALATION RT-BID Dicyclomine [Bentyl] 10 mg PO BID Tiotropium [place] [Spiriva] 1 cap INHALATION RT-DAILY Albuterol Nebulized [Ventolin Nebulized] 2.5 mg INHALATION RT-TID Discontinued Losartan Potassium [Cozaar] 100 mg PO QAM Celecoxib [CeleBREX] 200 mg PO DAILY Losartan Potassium 50 mg PO HS Discharge Medication List Gabapentin [Neurontin] 100 mg PO BID 09/17/14 [History] ALPRAZolam [Xanax] 1 mg PO TID PRN 06/16/15 [History] Prochlorperazine [Compazine] 10 mg PO TID PRN #30 tab 06/18/15 [Rx] Omeprazole [PriLOSEC] 20 mg PO DAILY 03/06/16 [History] Budesonide/Formoterol Fumarate [Symbicort 160-4.5 Mcg Inhaler] 2 puff INHALATION RT-BID 11/12/16 [History] Dicyclomine [Bentyl] 10 mg PO BID 11/12/16 [History] Tiotropium [place] [Spiriva] 1 cap INHALATION RT-DAILY 11/12/16 [History] Albuterol Nebulized [Ventolin Nebulized] 2.5 mg INHALATION RT-TID 03/10/18 [ History] Levofloxacin [Levaquin] 500 mg PO DAILY #4 tab 03/11/18 [Rx] Losartan/Hydrochlorothiazide [Losartan-Hctz 100-25 mg Tab] 1 each PO DAILY #30 tablet 03/11/18 [Rx] predniSONE 40 mg PO DAILY #5 tab 03/11/18 [Rx] Follow up Appointment(s)/Referral(s): Angel Burgos MD [Medical Doctor] - 03/19/18 2:00 pm Alvin Alejandro DO [Primary Care Provider] - 03/26/18 1:10 pm Patient Instructions/Handouts: Prednisone (By mouth), Levofloxacin (By mouth), Losartan/Hydrochlorothiazide (By mouth), COPD (Chronic Obstructive Pulmonary Disease) (DC), Hematoma (ED) Discharge Disposition: HOME SELF-CARE
[2018-03-11 15:56] VITALS: PULSE 88
== END 2018-03-11 16:15 | disposition home or self-care (01) ==
LOC: EC 05:19 → 3NMEDONC 08:53 → INTOOBSV 08:53 → 3NMEDONC 16:49 → INTOOBSV 03-11 16:10 → OBSVTOIN 03-11 16:10 → UNDODISIN 03-11 16:15
PROVIDERS: ADMIT Internal Medicine; ATTEND Internal Medicine
DX: J44.1 Chronic obstructive pulmonary disease with (acute) exacerbation (principal); R22.2 Localized swelling, mass and lump, trunk; K58.9 Irritable bowel syndrome, unspecified; I25.10 Atherosclerotic heart disease of native coronary artery without angina pectoris; I10 Essential (primary) hypertension; F41.1 Generalized anxiety disorder; M19.90 Unspecified osteoarthritis, unspecified site; K57.90 Diverticulosis of intestine, part unspecified, without perforation or abscess without bleeding; G43.909 Migraine, unspecified, not intractable, without status migrainosus; F17.200 Nicotine dependence, unspecified, uncomplicated; R11.0 Nausea; F40.240 Claustrophobia; K21.9 Gastro-esophageal reflux disease without esophagitis; Z79.51 Long term (current) use of inhaled steroids; Z79.899 Other long term (current) drug therapy; Z88.5 Allergy status to narcotic agent; Z88.6 Allergy status to analgesic agent; Z91.041 Radiographic dye allergy status; Z87.01 Personal history of pneumonia (recurrent); Z85.3 Personal history of malignant neoplasm of breast; Z87.11 Personal history of peptic ulcer disease; Z93.3 Colostomy status; Z90.12 Acquired absence of left breast and nipple; Z87.440 Personal history of urinary (tract) infections; Z90.49 Acquired absence of other specified parts of digestive tract; Z90.710 Acquired absence of both cervix and uterus; Z98.42 Cataract extraction status, left eye; Z98.41 Cataract extraction status, right eye; Z96.1 Presence of intraocular lens; Z82.5 Family history of asthma and other chronic lower respiratory diseases; Z82.49 Family history of ischemic heart disease and other diseases of the circulatory system; Z82.3 Family history of stroke; Z80.9 Family history of malignant neoplasm, unspecified; Z80.3 Family history of malignant neoplasm of breast
CPT/HCPCS: 96376 ×3; 96372 ×2; 96375 ×2; 96374; 99285; 36415; 94640 ×4; 93005; 88305; 80053; 82550; 82553; 84484; 85025; 85610; 85730; 87070; 87205; 71046; 20206; 76942; 76882; 71260; G0378 ×2; J2270; J1200; J1644 ×2; J2930 ×2; J1885; Q9967

== ENCOUNTER → 2018-07-08 | Outpatient (CLI) | payer MEDICARE ==
--- NOTE | 2018-07-08 10:49 | XR ---
EXAMINATION TYPE: XR chest 2V DATE OF EXAM: 07/08/2018 COMPARISON: 03/10/2018 TECHNIQUE: PA and lateral views submitted. HISTORY: COPD, cough FINDINGS: The lungs are clear and there is no pneumothorax, pleural effusion, or focal pneumonia. Biapical pl eural thickening. Postsurgical changes noted. Hyperinflation suggests COPD. Pulmonary arteries are en larged correlate for pulmonary arterial hypertension. Hypertrophic and degenerative change of the roxie tebral column. IMPRESSION: 1. No acute process. 2. COPD and findings compatible with stable biapical pleural thickening. Correlate for pulmonary george rial hypertension. 6 mm pulmonary nodule reported by previous CT scan is not well-seen by standard x- ray and could be followed with additional CT scan.
== END | disposition home or self-care (01) ==
LOC: RADXRMAIN 10:26
PROVIDERS: ATTEND Family Medicine
DX: J44.0 Chronic obstructive pulmonary disease with (acute) lower respiratory infection (principal); J92.9 Pleural plaque without asbestos; R91.8 Other nonspecific abnormal finding of lung field
CPT/HCPCS: 71046

== ENCOUNTER → 2018-07-10 | Outpatient (CLI) | payer MEDICARE ==
--- NOTE | 2018-07-10 11:24 | MM ---
Reason for exam: additional evaluation requested from prior study. Last mammogram was performed 1 year ago. History: Patient is postmenopausal and has history of breast cancer at age 75. Family history of breast cancer in sister. Mastectomy of the left breast, August 08, 2016. Malignant US biopsy breast VAD LT of the left breast, July 06, 2016. Benign excisional biopsy of both breasts. Physical Findings: Nurse did not find any significant physical abnormalities on exam. MG 3D Diag Mammo W/Cad RT CC and MLO view(s) were taken of the right breast. Prior study comparison: July 09, 2017, right breast MG 3d diag mammo w/cad RT. June 29, 2016, bilateral MG 3d diag mammo w/cad MORAIMA. The breast tissue is extremely dense which could obscure a lesion on mammography. Stable benign calcifications. There is no discrete abnormality. No significant new findings when compared with previous films. These results were verbally communicated with the patient and result sheet given to the patient on 07/10/18. ASSESSMENT: Benign, BI-RAD 2 RECOMMENDATION: Follow-up diagnostic mammogram of the right breast in 1 year.
== END ==
LOC: RADMAMWWP 10:39
PROVIDERS: ATTEND Internal Medicine Hematology & Oncology
DX: Z08 Encounter for follow-up examination after completed treatment for malignant neoplasm (principal); Z85.3 Personal history of malignant neoplasm of breast
CPT/HCPCS: 77065; G0279; 77061

== ENCOUNTER → 2018-08-27 | Outpatient (CLI) | payer MEDICARE ==
[2018-08-27 19:07] LABS: Anion Gap 8.5 mmol/L (4.00-12.00); Carbon Dioxide 27.5 mmol/L (21.6-31.8); Potassium 3.4 mmol/L (3.5-5.5)
== END | disposition home or self-care (01) ==
LOC: LABWHC1 13:25
PROVIDERS: ATTEND Internal Medicine Interventional Cardiology
DX: I10 Essential (primary) hypertension (principal)
CPT/HCPCS: 36415; 80051; 82565; 84520

== ENCOUNTER → 2018-09-25 | Outpatient (CLI) | payer MEDICARE ==
[2018-09-25 19:02] LABS: Anion Gap 6.2 mmol/L (4.00-12.00); BUN/Creat Ratio 22.5 Ratio (12.00-20.00); Calcium 9.9 mg/dL (8.7-10.3); Carbon Dioxide 30.8 mmol/L (21.6-31.8); Potassium 4.2 mmol/L (3.5-5.5)
== END | disposition home or self-care (01) ==
LOC: LABWHC1 11:34
PROVIDERS: ATTEND Nurse Practitioner Adult Health
DX: I10 Essential (primary) hypertension (principal)
CPT/HCPCS: 36415; 80048

== ENCOUNTER → 2018-12-18 | Outpatient (CLI) | payer MEDICARE ==
--- NOTE | 2018-12-18 15:01 | CT ---
EXAMINATION TYPE: CT abdomen pelvis wo/w con DATE OF EXAM: 12/18/2018 COMPARISON: 01/17/2017 HISTORY: Generalized pain. History of Breast cancer. CT DLP: 922 mGycm Automated exposure control for dose reduction was used. CONTRAST: CT scan of the abdomen pelvis is performed with IV Contrast, patient injected with 80 mL of Isovue 30 0. FINDINGS- LUNG BASES- No significant abnormality is appreciated. LIVER/GB-there are 3 low-density lesions within the liver the largest measuring 12 mm stable from the prior exam and suggestive of cysts. Postcholecystectomy changes are noted with. Minimal central bili carmen dilation.. PANCREAS- No gross abnormality is seen. SPLEEN- No gross abnormality is seen. ADRENALS-stable subcentimeter thickening of the left adrenal gland unchanged from the prior exam and therefore likely in the basis of hyperplasia.. KIDNEYS/BLADDER-there is a nonobstructing 2 mm right renal calculus. BOWEL-bowel gas pattern nonspecific. Left-sided ostomy noted. Rectum is somewhat low-lying in positio n which be associated with a rectocele. Small hiatal hernia noted. There is gastric antrum wall thick ening. LYMPH NODES- No greater than 1cm abdominal or pelvic lymph nodes areappreciated. OSSEOUS STRUCTURES-severe degenerative disc disease L5-S1. Sclerotic density involving the left iliac wing is stable from 2017 and therefore likely benign. OTHER- no free fluid. Aorta of normal caliber. Atherosclerotic change of the vasculature noted. IMPRESSION- 1. Nonobstructing 2 mm right renal calculus. 2. Wall thickening of the gastric antrum. Correlate for gastrointestinal symptoms. If there is concer n for mucosal lesion or gastritis correlate with direct visualization. 3. Left-sided ostomy noted 4. The rectum is somewhat low-lying position correlate for rectocele. No evidence of obstruction. 5. Postcholecystectomy changes. 6. within the anterior abdominal wall subcutaneous tissues there is a new 5 mm soft tissue nodule. Fi nding is nonspecific could be correlated with ultrasound since to determine if solid or cystic.
== END | disposition home or self-care (01) ==
LOC: RADCTMAIN 12:28
PROVIDERS: ATTEND Family Medicine
DX: N20.0 Calculus of kidney (principal); K31.89 Other diseases of stomach and duodenum; L98.8 Other specified disorders of the skin and subcutaneous tissue; Z90.49 Acquired absence of other specified parts of digestive tract
CPT/HCPCS: 82565; 84520; 74178; 36415; Q9967

== ENCOUNTER → 2019-01-12 | Outpatient (CLI) | payer MEDICARE ==
--- NOTE | 2019-01-12 13:22 | BD ---
EXAMINATION TYPE: Axial Bone Density DATE OF EXAM: 01/12/2019 COMPARISON: 2017 CLINICAL HISTORY: C 50.412 Height: 4 FT 11 1/2IN Weight: 92 FRAX RISK QUESTIONS: Glucocorticoids (More than 3mos): ON PREDINSONE RIGHT NOW FOR COPD SHE STATES ONLY TAKES NEEDED S EVERAL TIMES A YEAR (Secondary Osteoporosis: 3. Menopause before 45: PART AGE 30 Rheumatoid Arthritis: YES Current Tobacco Use: YES RISK FACTORS HISTORY OF: Surgery to Spine/Hip(right/left)/Wrist (right/left): CARPAL TUNNEL SURG BILAT When: YEARS AGO Active: YES Postmenopausal woman: PART [facility] AGE 30 SYMPTOMS IN HER 40'S Lost more than 2 inches in height since high school: YES MEDICATIONS: Additional Medications: CLEBREX, BLOOD , FEMARA, GABAPENTIN, PRILOSEC, GABAPENTIN Additional History: BREAST CANCER AND COPD, SHE HAS A CLOSTOMY BAG SINCE 2017 EXAM MEASUREMENTS: Bone mineral densitometry was performed using the [employer] System. Bone mineral density as measured about the Lumbar spine is: ----- L1-L4(G/cm2): 0.993 T Score Values are as follows: ----- L2: -1.5 ----- L3: -1.3 ----- L4: -1.8 ----- L1-L4: -1.6 Bone mineral density has: DECREASED -7.1 % since study of: 2017 Bone mineral density about the R hip (g/cm2): 0.920 Bone mineral density about the L hip (g/cm2): 0.998 T Score values are as follows: -----R Neck: -0.3 -----L Neck: -0.8 -----R Total: -1.0 -----L Total: -0.8 Bone mineral density has: DECREASED -5.9 % since study of: 2017 IMPRESSION: Osteopenia (T Score between -2.5 and -1). There is slightly increased risk of fracture and the patient may be considered for treatment. Re-Screen 2-5 years. NOTE: T-SCORE=SD OF THE YOUNG ADULT MEAN.
== END | disposition home or self-care (01) ==
LOC: RADBDWWP 09:26
PROVIDERS: ATTEND Internal Medicine Hematology & Oncology
DX: M85.80 Other specified disorders of bone density and structure, unspecified site (principal); Z79.890 Hormone replacement therapy; C50.412 Malignant neoplasm of upper-outer quadrant of left female breast
CPT/HCPCS: 77080

== ENCOUNTER 2019-01-22 14:31 | Inpatient (IN) | payer MEDICARE ==
[2019-01-22] MEDS ORDERED: IPRATROPIUM-ALBUTEROL 3 ML NEB INHALATION STA ×2 (14:55→18:06)
[2019-01-22] MEDS ORDERED: methylPREDNISolone SOD SUCCI 125 MG/2 ML VIAL IV STA (14:55)
[2019-01-22 15:15] LABS: VBG PH 7.42 (7.31-7.41)
[2019-01-22 15:16] LABS: Basophils # (A) 0.2 k/uL (0-0.2); Basophils % (A) 1 %; Eosinophils % (A) 0 %; HCT 48.5 % (34.0-46.0); HGB 15.6 gm/dL (11.4-16.0); Lymphocytes # (A) 0.9 k/uL (1.0-4.8); Lymphocytes % (A) 5 %; MCH 29.2 pg (25.0-35.0); MCHC 32.2 g/dL (31.0-37.0); MCV 90.7 fL (80.0-100.0); Mean Platelet Volume 6.3; Monocytes # (A) 0.7 k/uL (0-1.0); Monocytes % (A) 4 %; Neutrophils # (A) 16.8 k/uL (1.3-7.7); Neutrophils % (A) 89 %; Platelet Count 245 k/uL (150-450); RBC 5.35 m/uL (3.80-5.40); WBC 18.9 k/uL (3.8-10.6)
[2019-01-22 15:25] LABS: African American GFR (CKD) >90 (>60 ml/min/1.73 sqM); Anion Gap 8 mmol/L; Blood Urea Nitrogen 17 mg/dL (7-17); Calcium 9.9 mg/dL (8.4-10.2); Carbon Dioxide 28 mmol/L (22-30); Chloride 104 mmol/L (98-107); Glucose 167 mg/dL (74-99); Potassium 3.8 mmol/L (3.5-5.1); Sodium 140 mmol/L (137-145)
--- NOTE | 2019-01-22 15:35 | XR ---
EXAMINATION TYPE: XR chest 1V DATE OF EXAM: 01/22/2019 COMPARISON: Chest x-ray July 08, 2018. HISTORY: COPD with difficulty in breathing. TECHNIQUE: Single frontal view of the chest is obtained. FINDINGS: There is background chronic emphysematous change with [id number] biapical pleural/p arenchymal scarring. There is no focal air space opacity, pleural effusion, or pneumothorax seen. Th e cardiac silhouette size is within normal limits with atherosclerotic change in the thoracic aorta. Left breast shadow is surgically absent. Underlying Scoliotic curvature redemonstrated. IMPRESSION: Chronic changes without acute pulmonary process.
[2019-01-22] MEDS ORDERED: SODIUM CHLORIDE 0.9% 1,000 ML IV ONE (16:27)
--- NOTE | 2019-01-22 17:42 | ED ---
General Adult HPI - General Chief complaint: Shortness of Breath Stated complaint: COPD Time Seen by Provider: 01/22/19 14:45 Source: patient Mode of arrival: ambulatory Limitations: no limitations - History of Present Illness Initial comments: 78-year-old female presenting with acute shortness of breath. Patient has a history of COPD, does not wear oxygen, has never been intubated, but is currently on a two-week steroid taper. Patient states she was cleaning with bleach today when she developed sudden onset severe shortness of breath that did not resolve with her inhaler use. She admits to productive cough as well. Denies any chest pain, fevers or chills, other constitutional symptoms. Patient sees Dr. Bain for pulmonary. - Related Data Home Medications Medication Instructions Recorded Confirmed Gabapentin [Neurontin] 100 mg PO BID 09/17/14 01/22/19 ALPRAZolam [Xanax] 1 mg PO TID PRN 06/16/15 01/22/19 Omeprazole [PriLOSEC] 20 mg PO DAILY 03/06/16 01/22/19 Budesonide/Formoterol Fumarate 2 puff INHALATION RT-BID 11/12/16 01/22/19 [Symbicort 160-4.5 Mcg Inhaler] Dicyclomine [Bentyl] 10 mg PO BID 11/12/16 01/22/19 Tiotropium [place] [Spiriva] 1 cap INHALATION RT-DAILY 11/12/16 01/22/19 Albuterol Nebulized [Ventolin 2.5 mg INHALATION RT-TID 03/10/18 01/22/19 Nebulized] Celecoxib [CeleBREX] 200 mg PO DAILY 01/22/19 01/22/19 Losartan Potassium 50 mg PO HS 01/22/19 01/22/19 Losartan Potassium 100 mg PO QAM 01/22/19 01/22/19 Previous Rx's Medication Instructions Recorded Prochlorperazine [Compazine] 10 mg PO TID PRN #30 tab 06/18/15 Allergies Allergy/AdvReac Type Severity Reaction Status Date / Time aspirin AdvReac Nausea Verified 01/22/19 15:05 codeine AdvReac Nausea Verified 01/22/19 15:05 Iodinated Contrast Media AdvReac Vomiting Verified 01/22/19 15:05 [Iodinated Contrast Media - IV Dye] Review of Systems ROS Statement: Those systems with pertinent positive or pertinent negative responses have been documented in the HPI. ROS Other: All systems not noted in ROS Statement are negative. Past Medical History Past Medical History: Asthma, Coronary Artery Disease (CAD), Cancer, COPD, GERD/Reflux, Hypertension, Osteoarthritis (OA), Pneumonia Additional Past Medical History / Comment(s): L breast cancer with left mastectomy, diverticulosis with diverticular complications and rectovaginal fistula status post fistula repair, colon resection and colostomy placement at [facility], irritable bowel syndrome, peptic ulcer disease, generalized arthritis-multiple joints, leg cramps, frequent UTIs, migraines in the past, bronchitis, allergic rhinitis. History of Any Multi-Drug Resistant Organisms: None Reported Past Surgical History: Adenoidectomy, Appendectomy, Bladder Surgery, Cholecystectomy, Heart Catheterization, Hysterectomy, Orthopedic Surgery, Tonsillectomy Additional Past Surgical History / Comment(s): 09/21/14 cardiac cath with disease-treated medically, cataracts removed bilaterally with lens implants, rt rotator cuff, juan m carpal tunnel, bladder suspension, rectocele repair, hemorrhoidectomy, colonoscopies, camera endoscopy, EGD, left masectomy , vaginal rectal fistula repair, bowel resection and colostomy placement Past Anesthesia/Blood Transfusion Reactions: No Reported Reaction Additional Past Anesthesia/Blood Transfusion Reaction / Comment(s): Pt is claustrophobic. Past Psychological History: Anxiety Smoking Status: Current some day smoker Past Alcohol Use History: None Reported Past Drug Use History: None Reported - Past Family History Father Family Medical History: COPD Additional Family Medical History / Comment(s): Father is . Mother Family Medical History: CVA/TIA, Hypertension Additional Family Medical History / Comment(s): at age 91 Brother(s) Family Medical History: Cancer, Myocardial Infarction ([place]) Daughter(s) Family Medical History: No Reported History Son(s) Family Medical History: No Reported History Sister(s) Family Medical History: Cancer Additional Family Medical History / Comment(s): Sister had metastatic brease cancer and is . General Exam - General Exam Comments Initial Comments: General: Awake, alert, No acute Distress HENT: Normocephalic. Atraumatic Eyes: PERRL. EOMI. No scleral icterus. No injected conjunctiva Neck: Full ROM Chest/Lungs: Diffuse wheezing bilaterally with suprasternal, supraclavicular retractions, tachypnea, one word conversational dyspnea. Cardiac: Irregular irregular. No murmurs or rubs Abdomen/GI: Soft, nontender, nondistended. No rebound, guarding, or rigidity. Musculoskeletal: Full ROM Skin: Warm, dry, intact Neurologic: A/Ox3, no weakness, no sensory deficit, no abnormal gait, no coordination deficit Limitations: no limitations Course Vital Signs 01/22/19 01/22/19 01/22/19 14:32 14:45 14:58 Temperature 98.3 F Pulse Rate 101 H 98 Respiratory 24 30 H Rate Blood Pressure 129/62 O2 Sat by Pulse 93 L Oximetry 01/22/19 01/22/19 01/22/19 15:03 15:07 15:19 Temperature Pulse Rate 98 94 88 Respiratory 30 H 28 H Rate Blood Pressure 185/103 149/75 O2 Sat by Pulse 92 L 97 Oximetry 01/22/19 01/22/19 01/22/19 15:30 16:00 16:30 Temperature Pulse Rate 86 84 79 Respiratory 26 H 27 H 26 H Rate Blood Pressure 149/75 133/107 166/71 O2 Sat by Pulse 97 97 96 Oximetry 01/22/19 01/22/19 01/22/19 17:00 17:30 18:00 Temperature Pulse Rate 78 82 81 Respiratory 26 H 24 24 Rate Blood Pressure 158/59 141/67 O2 Sat by Pulse 96 96 96 Oximetry 01/22/19 01/22/19 01/22/19 18:30 18:47 18:56 Temperature 97.9 F Pulse Rate 73 82 79 Respiratory 24 Rate Blood Pressure 145/80 O2 Sat by Pulse 97 Oximetry Medical Decision Making - Medical Decision Making 78-year-old female presenting with shortness of breath. Initial exam the patient is tachypnea with suprasternal and subclavicular retractions, 1 word conversational dyspnea, diffuse wheezes bilaterally.Was placed on BiPAP with DuoNeb's with improvement of her difficulty in breathing. Patient found have a leukocytosis of 18,000 however she's been on steroids for the last 2 weeks. Her CXR showed no evidence of pneumonia. Unlikley PE in the setting of the patient's COPD and physical exam. Due to the patient's worsening shortness of breath she is placed on doxycycline and given Solu-Medrol. I spoke with Dr. Velasco who is agreeable to admission with Dr. Bain on consult. - Lab Data Result diagrams: 01/23/19 05:35 01/23/19 05:35 Lab Results 01/22/19 01/22/19 01/22/19 Range/Units 15:03 15:03 15:03 WBC 18.9 H (3.8-10.6) k/uL RBC 5.35 (3.80-5.40) m/uL Hgb 15.6 (11.4-16.0) gm/dL Hct 48.5 H (34.0-46.0) % MCV 90.7 (80.0-100.0) fL MCH 29.2 (25.0-35.0) pg MCHC 32.2 (31.0-37.0) g/dL RDW 14.0 (11.5-15.5) % Plt Count 245 (150-450) k/uL Neutrophils % 89 % Lymphocytes % 5 % Monocytes % 4 % Eosinophils % 0 % Basophils % 1 % Neutrophils # 16.8 H (1.3-7.7) k/uL Lymphocytes # 0.9 L (1.0-4.8) k/uL Monocytes # 0.7 (0-1.0) k/uL Eosinophils # 0.0 (0-0.7) k/uL Basophils # 0.2 (0-0.2) k/uL VBG pH 7.42 H (7.31-7.41) VBG pCO2 44 (37-51) mmHg VBG HCO3 28 (24-28) mmol/L Sodium 140 (137-145) mmol/L Potassium 3.8 (3.5-5.1) mmol/L Chloride 104 (98-107) mmol/L Carbon Dioxide 28 (22-30) mmol/L Anion Gap 8 mmol/L BUN 17 (7-17) mg/dL Creatinine 0.69 (0.52-1.04) mg/dL Est GFR (CKD-EPI)AfAm >90 (>60 ml/min/1.73 sqM) Est GFR (CKD-EPI)NonAf 84 (>60 ml/min/1.73 sqM) Glucose 167 H (74-99) mg/dL Lactic Ac Sepsis Rflx Plasma Lactic Acid Chucky (0.7-2.0) mmol/L Calcium 9.9 (8.4-10.2) mg/dL 01/22/19 01/22/19 Range/Units 15:03 16:18 WBC (3.8-10.6) k/uL RBC (3.80-5.40) m/uL Hgb (11.4-16.0) gm/dL Hct (34.0-46.0) % MCV (80.0-100.0) fL MCH (25.0-35.0) pg MCHC (31.0-37.0) g/dL RDW (11.5-15.5) % Plt Count (150-450) k/uL Neutrophils % % Lymphocytes % % Monocytes % % Eosinophils % % Basophils % % Neutrophils # (1.3-7.7) k/uL Lymphocytes # (1.0-4.8) k/uL Monocytes # (0-1.0) k/uL Eosinophils # (0-0.7) k/uL Basophils # (0-0.2) k/uL VBG pH (7.31-7.41) VBG pCO2 (37-51) mmHg VBG HCO3 (24-28) mmol/L Sodium (137-145) mmol/L Potassium (3.5-5.1) mmol/L Chloride (98-107) mmol/L Carbon Dioxide (22-30) mmol/L Anion Gap mmol/L BUN (7-17) mg/dL Creatinine (0.52-1.04) mg/dL Est GFR (CKD-EPI)AfAm (>60 ml/min/1.73 sqM) Est GFR (CKD-EPI)NonAf (>60 ml/min/1.73 sqM) Glucose (74-99) mg/dL Lactic Ac Sepsis Rflx Y Plasma Lactic Acid Chucky 2.4 H* (0.7-2.0) mmol/L Calcium (8.4-10.2) mg/dL Critical Care Time Critical Care Time: Yes Total Critical Care Time: 40 Critical Care Time: Due to a high probability of clinically significant, life threatening deterioration, the patient required my highest level of preparedness to intervene emergently and I personally spent this critical care time directly and personally managing the patient. This critical care time included obtaining a history; examining the patient; pulse oximetry; ordering and review of studies; arranging urgent treatment with development of a management plan; evaluation of patient's response to treatment; frequent reassessment; and, discussions with other providers.This critical care time was performed to assess and manage the high probability of imminent, life-threatening deterioration that could result in multi-organ failure. It was exclusive of separately billable procedures and treating other patients and teaching time.Please see MDM section and the rest of the note for further information on patient assessment and treatment. Disposition Clinical Impression: COPD (chronic obstructive pulmonary disease), Acute respiratory failure Disposition: ADMITTED IP TO THIS [facility] Decision to Admit Reason: Admit from EC Decision Date: 01/22/19 Decision Time: 18:03
[2019-01-22] MEDS ORDERED: NALOXONE 0.4 MG/ML 1 ML VIAL IV PRN (18:04)
[2019-01-22] MEDS ORDERED: IPRATROPIUM-ALBUTEROL 3 ML NEB INHALATION PRN (18:07)
[2019-01-22] MEDS ORDERED: PROCHLORPERAZINE 10 MG TAB PO PRN (18:08)
[2019-01-22] MEDS: IPRATROPIUM-ALBUTEROL 3 ML NEB INHALATION SCH (19:56)
[2019-01-22] MEDS: SYMBICORT 160-4.5 MCG INHALER INHALATION SCH (19:56)
[2019-01-22] MEDS: DICYCLOMINE 10 MG CAP PO SCH (20:27)
[2019-01-22] MEDS: GABAPENTIN 100 MG CAP PO SCH (20:27)
[2019-01-22] MEDS: LOSARTAN 50 MG TAB PO SCH (20:27)
[2019-01-22] MEDS: DOXYCYCLINE 100 MG in SODIUM CHLORIDE 0.9% 100 ML IVPB SCH (21:15)
[2019-01-22] MEDS: ALPRAZolam 1 MG TAB PO PRN (21:15)
[2019-01-22] MEDS: HEPARIN SODIUM,PORCINE 5,000 UNIT/ML 1 ML VIAL SQ SCH (23:47)
[2019-01-22] MEDS: methylPREDNISolone SOD SUCCI 125 MG/2 ML VIAL IV SCH (23:47)
[2019-01-23 05:51] LABS: Basophils % (A) 0 %; Eosinophils % (A) 0 %; HCT 44.4 % (34.0-46.0); HGB 14.7 gm/dL (11.4-16.0); Lymphocytes # (A) 0.4 k/uL (1.0-4.8); Lymphocytes % (A) 4 %; MCH 30.3 pg (25.0-35.0); MCHC 33.1 g/dL (31.0-37.0); MCV 91.6 fL (80.0-100.0); Mean Platelet Volume 5.6; Monocytes # (A) 0.3 k/uL (0-1.0); Monocytes % (A) 3 %; Neutrophils # (A) 9.3 k/uL (1.3-7.7); Neutrophils % (A) 92 %; Platelet Count 209 k/uL (150-450); RBC 4.84 m/uL (3.80-5.40); RDW 13.9 % (11.5-15.5)
[2019-01-23 06:07] LABS: African American GFR (CKD) >90 (>60 ml/min/1.73 sqM); Anion Gap 4 mmol/L; Blood Urea Nitrogen 19 mg/dL (7-17); Calcium 9.3 mg/dL (8.4-10.2); Carbon Dioxide 31 mmol/L (22-30); Chloride 105 mmol/L (98-107); Glucose 117 mg/dL (74-99); Potassium 4.5 mmol/L (3.5-5.1); Sodium 140 mmol/L (137-145)
[2019-01-23] MEDS: PANTOPRAZOLE 40 MG TABLET PO SCH (06:59)
[2019-01-23] MEDS ORDERED: NON FORMULARY DRUG (Tiotropium Bromide [Spiriva] 1 CAP) INHALATION SCH (08:00)
[2019-01-23] MEDS: SYMBICORT 160-4.5 MCG INHALER INHALATION SCH ×3 (08:16→20:52)
[2019-01-23] MEDS: IPRATROPIUM-ALBUTEROL 3 ML NEB INHALATION SCH ×4 (08:16→20:47)
[2019-01-23] MEDS: MELOXICAM 7.5 MG TAB PO SCH (08:28)
[2019-01-23] MEDS: LOSARTAN 50 MG TAB PO SCH ×2 (08:28→20:30)
[2019-01-23] MEDS: GABAPENTIN 100 MG CAP PO SCH ×2 (08:28→20:30)
[2019-01-23] MEDS: DICYCLOMINE 10 MG CAP PO SCH ×2 (08:28→20:30)
[2019-01-23] MEDS: DOXYCYCLINE 100 MG in SODIUM CHLORIDE 0.9% 100 ML IVPB SCH ×2 (08:29→20:30)
[2019-01-23] MEDS: methylPREDNISolone SOD SUCCI 125 MG/2 ML VIAL IV SCH ×3 (08:29→22:58)
[2019-01-23] MEDS: HEPARIN SODIUM,PORCINE 5,000 UNIT/ML 1 ML VIAL SQ SCH ×2 (08:29→20:30)
[2019-01-23] MEDS: POLYETHYLENE GLYCOL 3350 17 GM POWD.PACK PO SCH (11:48)
--- NOTE | 2019-01-23 13:06 | P.HPIM ---
History of Present Illness H&P Date: 01/23/19 Chief Complaint: Acute respiratory failure, COPD exacerbation, severe bronch itis, hypertensi 78-year-old female one of Dr. Alejandro patient with past medical history of COPD oxygen dependent, history of partial colon resection secondary to rectovaginal fistula post repair and partial colon resection, history of breast cancer post left-sided mastectomy, history of CAD on medical management post heart catheter less than 2014. Patient was in the hospital last round mid 2018 for COPD excessive patient was treated and done well. Patient was doing well until about 2 weeks ago when she started having slight increased wheezes cough and shortness of breath she apparently clean her toilet bowl with the bleach and was trying to empty her ostomy bag and spend little bit longer time than intended over the toilet bowl inhale more bleach which in her pain and had a trigger worsening shortness of breath cough wheezes and worsening symptoms. Patient been on steroid for pressure. This time did not help ended up coming to the emergency department at [facility] where was seen and evaluated was quite bit hypoxic having inspiratory expiratory wheezes and was in mild respiratory failure after loading her with steroid and IV antibiotics patient was giving updraft treatment was started feeling a bit better. Was admitted to the hospital for the above problem. Review of Systems CONSTITUTIONAL: Well-developed no acute respiratory distress. EYES: No icterus sclerae, no conjunctivitis. EARS, NOSE, MOUTH, THROAT, and FACE: No sore throat, lymphadenopathy, carotid bruits or deformity. RESPIRATORY: Positive shortness of breath cough and wheezes. CARDIOVASCULAR: No CP, Palpitation, PND, Orthopnea, or angina. GASTROINTESTINAL: Ostomy functioning well with no diarrhea more constipation no nausea or vomiting. GENITOURINARY: Negative for Hematuria or UTI, no kidney stones. INTEGUMENT/BREAST: Negative for any muscular injury with mild osteoarthritis.. HEMATOLOGIC/LYMPHATIC: Negative for bleed or purpura. MUSCULOSKELTAL: Negative for Myalgia or arthralgia. NEURLOGICAL: No LOC, Sz or syncope, blurred vision dizziness or abnormality.. BEHAVIORAL/PSYCH: Negative. ENDOCRINE: Negative. Past Medical History Past Medical History: Asthma, Coronary Artery Disease (CAD), Cancer, COPD, GERD/ Reflux, Hypertension, Osteoarthritis (OA), Pneumonia Additional Past Medical History / Comment(s): L breast cancer with left mastectomy, diverticulosis with diverticular complications and rectovaginal fistula status post fistula repair, colon resection and colostomy placement at [facility], irritable bowel syndrome, peptic ulcer disease, generalized arthritis-multiple joints, leg cramps, frequent UTIs, migraines in the past, bronchitis, allergic rhinitis. History of Any Multi-Drug Resistant Organisms: None Reported Past Surgical History: Adenoidectomy, Appendectomy, Bladder Surgery, Cholecystectomy, Heart Catheterization, Hysterectomy, Orthopedic Surgery, Tonsillectomy Additional Past Surgical History / Comment(s): 09/21/14 cardiac cath with disease-treated medically, cataracts removed bilaterally with lens implants, rt rotator cuff, juan m carpal tunnel, bladder suspension, rectocele repair, hemorrhoidectomy, colonoscopies, camera endoscopy, EGD, left masectomy , vaginal rectal fistula repair, bowel resection and colostomy placement Past Anesthesia/Blood Transfusion Reactions: No Reported Reaction Additional Past Anesthesia/Blood Transfusion Reaction / Comment(s): Pt is claustrophobic. Past Psychological History: Anxiety Smoking Status: Current some day smoker Past Alcohol Use History: None Reported Past Drug Use History: None Reported - Past Family History Father Family Medical History: COPD Additional Family Medical History / Comment(s): Father is . Mother Family Medical History: CVA/TIA, Hypertension Additional Family Medical History / Comment(s): at age 91 Brother(s) Family Medical History: Cancer, Myocardial Infarction ([place]) Daughter(s) Family Medical History: No Reported History Son(s) Family Medical History: No Reported History Sister(s) Family Medical History: Cancer Additional Family Medical History / Comment(s): Sister had metastatic brease cancer and is . Medications and Allergies Home Medications Medication Instructions Recorded Confirmed Type Gabapentin [Neurontin] 100 mg PO BID 09/17/14 01/22/19 History ALPRAZolam [Xanax] 1 mg PO TID PRN 06/16/15 01/22/19 History Prochlorperazine [Compazine] 10 mg PO TID PRN #30 tab 06/18/15 01/22/19 Rx Omeprazole [PriLOSEC] 20 mg PO DAILY 03/06/16 01/22/19 History Budesonide/Formoterol Fumarate 2 puff INHALATION RT-BID 11/12/16 01/22/19 History [Symbicort 160-4.5 Mcg Inhaler] Dicyclomine [Bentyl] 10 mg PO BID 11/12/16 01/22/19 History Tiotropium [place] [Spiriva] 1 cap INHALATION RT-DAILY 11/12/16 01/22/19 History Albuterol Nebulized [Ventolin 2.5 mg INHALATION RT-TID 03/10/18 01/22/19 History Nebulized] Celecoxib [CeleBREX] 200 mg PO DAILY 01/22/19 01/22/19 History Losartan Potassium 50 mg PO HS 01/22/19 01/22/19 History Losartan Potassium 100 mg PO QAM 01/22/19 01/22/19 History Allergies Allergy/AdvReac Type Severity Reaction Status Date / Time aspirin AdvReac Nausea Verified 01/22/19 15:05 codeine AdvReac Nausea Verified 01/22/19 15:05 Iodinated Contrast Media AdvReac Vomiting Verified 01/22/19 15:05 [Iodinated Contrast Media - IV Dye] Physical Exam Vitals: Vital Signs Temp Pulse Pulse Resp BP BP Pulse Ox 01/23/19 12:00 97.3 F L 70 20 155/69 95 01/23/19 11:53 77 01/23/19 11:33 76 01/23/19 08:29 80 01/23/19 08:16 80 01/23/19 08:00 97.5 F L 79 18 161/73 92 L 01/23/19 05:41 79 01/23/19 05:29 76 01/23/19 04:00 97.9 F 64 22 163/76 100 01/23/19 00:00 97.9 F 63 22 156/68 99 01/22/19 20:00 97.7 F 74 24 165/76 98 01/22/19 18:56 79 01/22/19 18:47 82 01/22/19 18:30 97.9 F 73 24 145/80 97 01/22/19 18:00 81 24 141/67 96 01/22/19 17:30 82 24 96 01/22/19 17:00 78 26 H 158/59 96 01/22/19 16:30 79 26 H 166/71 96 01/22/19 16:00 84 27 H 133/107 97 01/22/19 15:30 86 26 H 149/75 97 01/22/19 15:19 88 28 H 149/75 97 01/22/19 15:07 94 01/22/19 15:03 98 30 H 185/103 92 L 01/22/19 14:58 98 01/22/19 14:45 30 H 01/22/19 14:32 98.3 F 101 H 24 129/62 93 L Intake and Output 01/22/19 01/23/19 01/23/19 22:59 06:59 14:59 Intake Total 100 340 Output Total 300 Balance -200 340 Intake: Intake, IV Titration 100 100 Amount Doxycycline 100 mg In 100 100 Sodium Chloride 0.9% 100 ml @ 100 mls/hr IVPB Q12HR [facility] Rx#:[id number] Oral 240 Output: Urine 300 Other: Voiding Method Toilet Toilet Toilet General Appearance: Alert, cooperative, look very skinny and older than her age in mild respiratory distress. Neck HEENT: Supple, no lymphadenopathy, no thyroid enlargement, no carotid bruits. Lungs: Decreased breath sounds bilaterally with fine crackles in the bases possible mild inspiratory expiratory wheezes and rhonchi bilaterally. Chest Wall: Decrease expansion with deep inspiration no tenderness and no deformity was found on exam, no costochondral pain or discomfort. Heart: Regular rate and rhythm, S1, S2 normal, positive S3 positive JVD no murm ur, rub or gallop. Back: Symmetric, no curvature, ROM normal, no CVA tenderness. Abdomen: Soft, non-tender, bowel sounds active all four quadrants, ostomy bag looks fine and left side. Extremities: Extremities normal, atraumatic, no cyanosis or edema. Pulses: 2+ and symmetric. Skin: Skin color, texture, tugor normal, no rashes or lesions. Neurologic: Alert oriented x3 cranial nerves II through XII intact, no motor deficit, no abnormal balance or gait. Results CBC & Chem 7: 01/23/19 05:35 01/23/19 05:35 Labs: Abnormal Lab Results - Last 24 Hours (Table) 01/22/19 01/22/19 01/22/19 Range/Units 15:03 15:03 15:03 WBC 18.9 H (3.8-10.6) k/uL Hct 48.5 H (34.0-46.0) % Neutrophils # 16.8 H (1.3-7.7) k/uL Lymphocytes # 0.9 L (1.0-4.8) k/uL VBG pH 7.42 H (7.31-7.41) Carbon Dioxide (22-30) mmol/L BUN (7-17) mg/dL Glucose 167 H (74-99) mg/dL Plasma Lactic Acid [place] (0.7-2.0) mmol/L 01/22/19 01/23/19 01/23/19 Range/Units 15:03 05:35 05:35 WBC (3.8-10.6) k/uL Hct (34.0-46.0) % Neutrophils # 9.3 H (1.3-7.7) k/uL Lymphocytes # 0.4 L (1.0-4.8) k/uL VBG pH (7.31-7.41) Carbon Dioxide 31 H (22-30) mmol/L BUN 19 H (7-17) mg/dL Glucose 117 H (74-99) mg/dL Plasma Lactic Acid [place] 2.4 H* (0.7-2.0) mmol/L Thrombosis Risk Factor Assmnt - DVT/VTE Prophylaxis DVT/VTE Prophylaxis: Pharmacologic Prophylaxis ordered, Mechanical Prophylaxis ordered - Choose All That Apply Each Factor Represents 1 point: Abnormal pulmonary function (COPD) Other Risk Factors: Yes Each Risk Factor Represents 3 Points: Age 75 years or older Thrombosis Risk Factor Assessment Total Risk Factor Score: 4 Thrombosis Risk Factor Assessment Level: Moderate Risk Assessment and Plan Plan: 1 acute respiratory failure: Combination off COPD exacerbation along with bronchitis and possible inhalation of bleach at this point. We will continue O2 continue supportive care consult pulmonary. 2 COPD excessive patient: Continue DuoNeb 4 times a day and every 4 hours as needed, continue budesonide, continue Solu-Medrol she was loaded with 125 mg IV and 60 mg every 6 hours for now. We'll consult pulmonary. 3 severe bronchitis: Patient be started on doxycycline for now. 4 hypertension: The pressure remain well controlled on losartan she is doing total of 150 mg a day which is little bit higher than the normal. 5 chronic neuropathy: Remain on Lyrica 75 mg daily. 6 chronic ostomy with ostomy care: Patient has been doing very well. 7 hyperglycemia: On diet control Accu-Chek with sliding scales coverage will be done. 8 severe GERD: Remain on omeprazole. 9 DVT prophylaxis: Patient be on heparin subcutaneous. CODE STATUS: Full code. Admit patient to inpatient status for more than 2 nights.
[2019-01-23 14:01] VITALS: BMI 18.8
--- NOTE | 2019-01-23 15:11 | CONS ---
CONSULTATION PULMONARY CRITICAL CARE CONSULTATION: This is a 78-year-old female who presented to the emergency room with complaints of shortness of breath. The patient does not usually wear oxygen at home. The patient states that she recently was on a steroid taper given to her by her primary doctor, Dr. Alejandro. Apparently I see her in the office for her COPD. The patient states that it started about a week ago. At that time, the patient states that she was putting some bleach cleansing pallets into her toilet. Apparently, the smell got to her and over the week, she continued to worsen. Her complaints include shortness of breath, chest tightness, wheezing, cough. Her cough is productive of yellow phlegm. No fever, chills, chest pain, chest discomfort, nausea, vomiting or diarrhea. She was seen in the emergency room last night, admitted with a diagnosis of COPD exacerbation. CURRENT MEDICATIONS: Include Neurontin, Xanax, Prilosec, Symbicort, Bentyl, Spiriva, albuterol updrafts, albuterol inhaler, Celebrex, and losartan. ALLERGIES: Include ASPIRIN, CODEINE and IV DYE. PAST MEDICAL HISTORY: Includes a COPD/asthma, CAD, GERD, hypertension, DJD, and pneumonia. She also has a previous history of left breast cancer with left mastectomy. In addition, she has a history of diverticulosis with rectovaginal fistula, status post fistula repair. In addition, she has a colon resection and colostomy. Other medical problems include ergo bowel syndrome, peptic ulcer disease, frequent UTIs, and migraine cephalgia. SURGICAL HISTORY: Includes adenoidectomy, appendectomy, bladder surgery, cholecystectomy, heart catheterization, hysterectomy, tonsillectomy, cardiac catheterization, cataract surgery with lens implants, right rotator cuff surgery, bilateral carpal tunnel surgery, rectocele repair, hemorrhoidectomy, colonoscopy, camera endoscopy, EGD, vaginal rectal fistula repair, and bowel resection with colostomy. SOCIAL HISTORY: Positive for ongoing and daily tobacco use. She denies alcohol or drug use. FAMILY HISTORY: Positive for a father with COPD, mother with CVA, TIA and hypertension. A brother with myocardial infarction. A daughter with no medical problems. A son with no medical problems and a sister with metastatic breast cancer. REVIEW OF SYSTEMS: CONSTITUTIONAL; Negative. NEUROLOGIC: Negative. HEENT: Negative. CARDIOVASCULAR: Negative. PULMONARY: Shortness of breath, chest tightness, wheezing, cough and chest congestion with phlegm production. The phlegm is slightly yellow. GI: Negative. : Negative. RHEUMATOLOGIC: Negative. IMMUNOLOGIC: Negative. ENDOCRINOLOGIC: Negative. DERMATOLOGIC: Negative. Current vital signs are reviewed. Temperature is 97.3, heart rate 70, respiratory rate 20, blood pressure 155/69, mean 97, 2 L saturation 95%. Appears in no acute distress. No audible wheezing. No use of accessory muscles. No conversational dyspnea. HEENT: Examination is grossly unremarkable. Mucous membranes are moist. No oral lesions. Nasal O2 noted. NECK: Supple. Full range of motion. No adenopathy or thyromegaly. Neck veins are flat. CARDIOVASCULAR: Examination reveals regular rhythm and rate. Heart rate 70. S1, S2 normal. No S3, S4, or murmur. LUNGS: Expiratory wheezes and rhonchi. There is prolongation on forced maneuver. The patient wheezes and coughs on forced maneuver. Adventitious lung sounds are more prominent on forced maneuver. She is significantly bronchospastic. ABDOMEN: Soft. Bowel sounds are heard. EXTREMITIES: Intact. No cyanosis, clubbing, or edema. SKIN: Without rash. NEUROLOGIC: Examination is brief but nonfocal. LABS: Reviewed. White count 10, hemoglobin 14.7, hematocrit 44.4, platelet count 209,000. Sodium 140, potassium 4.5, chloride 105, CO2 is 31, anion gap 4, BUN and creatinine were 19 and 0.62. Lactic acid 2.4, down to 1.1 on recheck. Calcium 9.3. The patient had a chest x-ray which only showed changes of COPD. There is nothing acute going on. Medications are reviewed. They will be adjusted accordingly. ASSESSMENT: 1. Chronic obstructive pulmonary disease exacerbation complicated by purulent tracheobronchitis, without adán pneumonia. 2. History of breast cancer, status post left mastectomy. 3. Coronary artery disease. 4. Gastroesophageal reflux disease. 5. Hypertension. 6. Degenerative joint disease. 7. History of pneumonia. 8. Previous colon resection with colostomy. 9. Repair of rectovaginal fistula. 10.Diverticular disease. 11.Peptic ulcer disease. 12.Migraine cephalgia. 13.Frequent urinary tract infections. 14.Ongoing tobacco use with nicotine addiction. PLAN: The patient is counseled about the importance of smoking cessation. I see her in the office about every 6 months. She has an appointment to see me on January 29, 2016. The patient's medications are adjusted accordingly. Additional recommendations and suggestions are forthcoming. I will DC the Symbicort in favor of Pulmicort and Perforomist. She is currently on Solu-Medrol 60 q.8. The patient should get an oral antibiotic, and she is on one in the form of doxycycline. She is also getting albuterol and Atrovent updrafts. Additional recommendations and suggestions are forthcoming. MMODL / IJN: [id number] /
[2019-01-23] MEDS ORDERED: ACETAMINOPHEN TAB 500 MG TAB PO PRN (15:16)
[2019-01-23] MEDS: IBUPROFEN 400 MG TAB PO PRN ×2 (15:54→23:10)
[2019-01-23 16:36] LABS: Glucose,Whole Blood 135 mg/dL (75-99)
[2019-01-23] MEDS: INSULIN ASPART (NovoLOG) 100 UNIT/ML VIAL SQ SCH ×2 (17:03→20:19)
[2019-01-23 20:15] LABS: Glucose,Whole Blood 124 mg/dL (75-99)
[2019-01-23] MEDS: ALPRAZolam 1 MG TAB PO PRN (23:29)
[2019-01-24 06:18] LABS: Glucose,Whole Blood 119 mg/dL (75-99)
[2019-01-24] MEDS: INSULIN ASPART (NovoLOG) 100 UNIT/ML VIAL SQ SCH ×4 (06:20→21:05)
[2019-01-24 06:33] LABS: HCT 40.9 % (34.0-46.0); HGB 13.7 gm/dL (11.4-16.0); MCH 30.5 pg (25.0-35.0); MCHC 33.6 g/dL (31.0-37.0); MCV 90.9 fL (80.0-100.0); Platelet Count 191 k/uL (150-450); RDW 13.6 % (11.5-15.5); WBC 13.8 k/uL (3.8-10.6)
[2019-01-24] MEDS: PANTOPRAZOLE 40 MG TABLET PO SCH (06:38)
[2019-01-24 06:45] LABS: African American GFR (CKD) >90 (>60 ml/min/1.73 sqM); Anion Gap 2 mmol/L; Blood Urea Nitrogen 31 mg/dL (7-17); Calcium 9.6 mg/dL (8.4-10.2); Carbon Dioxide 32 mmol/L (22-30); Chloride 106 mmol/L (98-107); Glucose 119 mg/dL (74-99); Potassium 4.2 mmol/L (3.5-5.1); Sodium 140 mmol/L (137-145)
[2019-01-24] MEDS: methylPREDNISolone SOD SUCCI 125 MG/2 ML VIAL IV SCH ×3 (08:05→23:18)
[2019-01-24] MEDS: DOXYCYCLINE 100 MG in SODIUM CHLORIDE 0.9% 100 ML IVPB SCH ×2 (08:05→21:33)
[2019-01-24] MEDS: MELOXICAM 7.5 MG TAB PO SCH (08:06)
[2019-01-24] MEDS: GABAPENTIN 100 MG CAP PO SCH ×2 (08:06→21:14)
[2019-01-24] MEDS: HEPARIN SODIUM,PORCINE 5,000 UNIT/ML 1 ML VIAL SQ SCH ×2 (08:06→21:14)
[2019-01-24] MEDS: LOSARTAN 50 MG TAB PO SCH ×2 (08:06→21:14)
[2019-01-24] MEDS: DICYCLOMINE 10 MG CAP PO SCH ×2 (08:06→21:14)
[2019-01-24] MEDS: POLYETHYLENE GLYCOL 3350 17 GM POWD.PACK PO SCH (08:07)
[2019-01-24] MEDS: IPRATROPIUM-ALBUTEROL 3 ML NEB INHALATION SCH ×4 (08:45→20:16)
[2019-01-24] MEDS: SYMBICORT 160-4.5 MCG INHALER INHALATION SCH ×2 (08:45→20:16)
[2019-01-24] MEDS: amLODIPine 5 MG TAB PO SCH (09:44)
--- NOTE | 2019-01-24 10:19 | P.PN ---
Subjective Progress Note Date: 01/24/19 78-year-old female one of Dr. Alejandro patient with past medical history of COPD oxygen dependent, history of partial colon resection secondary to rectovaginal fistula post repair and partial colon resection, history of breast cancer post left-sided mastectomy, history of CAD on medical management post heart catheter less than 2015. Patient was in the hospital last round mid 2018 for COPD excessive patient was treated and done well. Patient was doing well until about 2 weeks ago when she started having slight increased wheezes cough and shortness of breath she apparently clean her toilet bowl with the bleach and was trying to empty her ostomy bag and spend little bit longer time than intended over the toilet bowl inhale more bleach which in her pain and had a trigger worsening shortness of breath cough wheezes and worsening symptoms. Patient been on steroid for pressure. This time did not help ended up coming to the emergency department at [facility] where was seen and evaluated was quite bit hypoxic having inspiratory expiratory wheezes and was in mild respiratory failure after loading her with steroid and IV antibiotics patient was giving updraft treatment was started feeling a bit better. Was admitted to the hospital for the above problem. 01/24/2018: Patient had a difficult night needing the BiPAP machine, patient states she's had increased coughing and wheezing throughout the night. Her blood pressure has been elevated. This morning patient is sitting up in bed in mild distress. She has O2 via nasal cannula in place. Data CBC 13.8, hemoglobin 13.7, sodium 140, potassium 4.2, carbon dioxide 32, B UN 31, creatinine 0.65. Patient is afebrile, vital signs hemodynamically stable. Review of Systems CONSTITUTIONAL: Well-developed mild distress. EYES: No icterus sclerae, no conjunctivitis. EARS, NOSE, MOUTH, THROAT, and FACE: No sore throat, lymphadenopathy, carotid bruits or deformity. RESPIRATORY: Positive shortness of breath cough and wheezes. CARDIOVASCULAR: No CP, Palpitation, PND, Orthopnea, or angina. GASTROINTESTINAL: Ostomy functioning well with no diarrhea more constipation no nausea or vomiting. GENITOURINARY: Negative for Hematuria or UTI, no kidney stones. INTEGUMENT/BREAST: Negative for any muscular injury with mild osteoarthritis.. HEMATOLOGIC/LYMPHATIC: Negative for bleed or purpura. MUSCULOSKELTAL: Negative for Myalgia or arthralgia. NEURLOGICAL: No LOC, Sz or syncope, blurred vision dizziness or abnormality.. BEHAVIORAL/PSYCH: Negative. ENDOCRINE: Negative. Objective - Vital Signs Vital signs: Vital Signs Temp 97.6 F 01/24/19 08:00 Pulse 90 01/24/19 08:55 Resp 18 01/24/19 08:00 BP 204/91 01/24/19 08:00 Pulse Ox 93 L 01/24/19 08:00 Intake & Output 01/23/19 01/24/19 01/24/19 18:59 06:59 18:59 Intake Total 820 240 Output Total 200 Balance 820 -200 240 Weight 42.184 kg 42.6 kg Intake: Intake, IV Titration 100 Amount Doxycycline 100 mg In 100 Sodium Chloride 0.9% 100 ml @ 100 mls/hr IVPB Q12HR [facility] Rx#:[id number] Oral 720 240 Output: Urine 200 Other: Voiding Method Toilet Toilet # Voids 1 - Exam General Appearance: Alert, cooperative, mild distress, appears stated age. Neck HEENT: Supple, no lymphadenopathy, no thyroid enlargement, no carotid bruits. Lungs: Wheezes throughout lung [place] with rhonchi no crackles, no deformity positive cough Chest Wall: Decreased Chest wall expansion with deep inspiration no tenderness and no deformity was found on exam, no costochondral pain or discomfort. Heart: Regular rate and rhythm, S1, S2 normal, no murmur, rub or gallop. Back: Symmetric, no curvature, ROM normal, no CVA tenderness. Abdomen: Soft, non-tender, no rebound or rigidity, no hepatosplenomegaly. Extremities: Extremities normal, atraumatic, no cyanosis or edema. Pulses: 2+ and symmetric. Skin: Skin color, texture, tugor normal, no rashes or lesions. Neurologic: Alert oriented x3 cranial nerves II through XII intact, no motor deficit, no abnormal balance or gait - Labs CBC & Chem 7: 01/24/19 06:08 01/24/19 06:08 Labs: Abnormal Lab Results - Last 24 Hours (Table) 01/23/19 01/23/19 01/24/19 Range/Units 16:34 20:13 06:08 WBC 13.8 H (3.8-10.6) k/uL Carbon Dioxide (22-30) mmol/L BUN (7-17) mg/dL Glucose (74-99) mg/dL POC Glucose (mg/dL) 135 H 124 H (75-99) mg/dL 01/24/19 01/24/19 Range/Units 06:08 06:17 WBC (3.8-10.6) k/uL Carbon Dioxide 32 H (22-30) mmol/L BUN 31 H (7-17) mg/dL Glucose 119 H (74-99) mg/dL POC Glucose (mg/dL) 119 H (75-99) mg/dL Microbiology - Last 24 Hours (Table) 01/22/19 15:03 Blood Culture - Preliminary Blood No Growth after 24 hours Assessment and Plan Plan: 1 acute respiratory failure: Combination off COPD exacerbation along with bronchitis and possible inhalation of bleach at this point. We will continue O2 continue supportive care pulmonary consult appreciated 2 COPD excessive patient: Continue DuoNeb 4 times a day and every 4 hours as needed, continue budesonide, continue Solu-Medrol she was loaded with 125 mg IV and 60 mg every 6 hours for now. Primary consult appreciated. Symbicort DC'd, continue Pulmicort 3 severe bronchitis: Patient be started on doxycycline for now. 4. 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 Continue respiratory support, avoid chemical toxins 5 hypertension: losartan 150 mg a day, amlodipine 5 mg added 6 chronic neuropathy: Remain on Lyrica 75 mg daily. 7 chronic ostomy with ostomy care: Patient has been doing very well. 8 hyperglycemia: On diet control Accu-Chek with sliding scales coverage will be done. 9 severe GERD: Remain on omeprazole. 10 DVT prophylaxis: Patient be on heparin subcutaneous. CODE STATUS: Full code. Admit patient to inpatient status for more than 2 nights. Impression and plan of care have been directed as dictated by the signing physician. Evelia Caro nurse practitioner acting as scribe for signing physician.
[2019-01-24 11:51] LABS: Glucose,Whole Blood 120 mg/dL (75-99)
--- NOTE | 2019-01-24 12:41 | P.PN ---
Subjective Progress Note Date: 01/24/19 Principal diagnosis: Acute exacerbation of chronic obstructive pulmonary disease, complicated by purulent tracheal bronchitis. No clear evidence of pneumonia. The patient is seen today 01/24/2019 in follow-up on the selective care unit. She is currently sitting up in a chair at the bedside. Awake and alert in no acute distress. Breathing easier today as compared to yesterday. Not quite back to her baseline. Maintaining O2 saturations in the 90s on 2 L/m per nasal cannula. Afebrile. Somewhat hypertensive. Blood culture reveals no growth to date. White count 13.8. Hemoglobin 13.7. Creatinine 0.65. Objective - Vital Signs Vital signs: Vital Signs Temp 97.6 F 01/24/19 08:00 Pulse 89 01/24/19 12:00 Resp 22 01/24/19 12:00 BP 189/86 01/24/19 12:00 Pulse Ox 96 01/24/19 12:00 Intake & Output 01/23/19 01/24/19 01/24/19 18:59 06:59 18:59 Intake Total 820 340 Output Total 200 200 Balance 820 -200 140 Weight 42.184 kg 42.6 kg Intake: Intake, IV Titration 100 100 Amount Doxycycline 100 mg In 100 100 Sodium Chloride 0.9% 100 ml @ 100 mls/hr IVPB Q12HR [facility] Rx#:[id number] Oral 720 240 Output: Urine 200 200 Other: Voiding Method Toilet Toilet # Voids 1 - Exam GENERAL EXAM: Alert, active, comfortable in no apparent distress. On 2 L nasal cannula. HEAD: Normocephalic. EYES: Normal reaction of pupils, equal size. NOSE: Clear with pink turbinates. THROAT: No erythema or exudates. NECK: No masses, no JVD. CHEST: No chest wall deformity. LUNGS: Equal air entry with end expiratory wheeze, diminished CVS: S1 and S2 normal with no audible murmur, regular rhythm. ABDOMEN: No hepatosplenomegaly, normal bowel sounds, no guarding or rigidity. SPINE: No scoliosis or deformity SKIN: No rashes CENTRAL NERVOUS SYSTEM: No focal deficits, tone is normal in all 4 extremities. EXTREMITIES: There is no peripheral edema. No clubbing, no cyanosis. Perip heral pulses are intact. - Labs CBC & Chem 7: 01/24/19 06:08 01/24/19 06:08 Labs: Abnormal Lab Results - Last 24 Hours (Table) 01/23/19 01/23/19 01/24/19 Range/Units 16:34 20:13 06:08 WBC 13.8 H (3.8-10.6) k/uL Carbon Dioxide (22-30) mmol/L BUN (7-17) mg/dL Glucose (74-99) mg/dL POC Glucose (mg/dL) 135 H 124 H (75-99) mg/dL 01/24/19 01/24/19 01/24/19 Range/Units 06:08 06:17 11:41 WBC (3.8-10.6) k/uL Carbon Dioxide 32 H (22-30) mmol/L BUN 31 H (7-17) mg/dL Glucose 119 H (74-99) mg/dL POC Glucose (mg/dL) 119 H 120 H (75-99) mg/dL Microbiology - Last 24 Hours (Table) 01/22/19 15:03 Blood Culture - Preliminary Blood No Growth after 24 hours Assessment and Plan Assessment: Impression: #1 Acute exacerbation of chronic obstructive pulmonary disease, complicated by purulent tracheobronchitis without adán pneumonia. #2 History of breast cancer, status post left mastectomy. #3 Coronary disease. #4 GERD area #5 Hypertension. #6 Degenerative joint disease. #7 Previous colon resection with colostomy. #8 Repair of rectovaginal fistula. #9 Diverticular disease. 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 #11 Migraine cephalgia. #12 Urinary tract infections. #13 Chronic and ongoing tobacco dependence. Plan: The patient was seen and evaluated by Dr. Bain. She is improved today as compared to yesterday. Not quite back to her baseline. We'll continue the curr ent treatment plan. Increase her activity as tolerated. She is again educated regarding the importance of complete smoking cessation. We'll continue to follow. I, the cosigning physician, performed a history & physical examination of the patient. Lungs sounds with bilateral end expiratory wheeze, diminished. Maintaining good O2 saturations in the 90s on 2 L/m per nasal cannula. I discussed the assessment and plan of care with my nurse practitioner, Rosi Julio. I attest to the above note as dictated by her.
[2019-01-24 17:00] LABS: Glucose,Whole Blood 149 mg/dL (75-99)
[2019-01-24 20:22] LABS: Glucose,Whole Blood 122 mg/dL (75-99)
[2019-01-24] MEDS: ALPRAZolam 1 MG TAB PO PRN (21:33)
[2019-01-25 06:24] LABS: Glucose,Whole Blood 117 mg/dL (75-99)
[2019-01-25] MEDS: INSULIN ASPART (NovoLOG) 100 UNIT/ML VIAL SQ SCH ×4 (06:25→20:55)
[2019-01-25 06:35] LABS: Basophils % (A) 0 %; Eosinophils % (A) 0 %; HGB 13.6 gm/dL (11.4-16.0); Lymphocytes # (A) 0.4 k/uL (1.0-4.8); Lymphocytes % (A) 4 %; MCHC 33.2 g/dL (31.0-37.0); MCV 90.3 fL (80.0-100.0); Mean Platelet Volume 5.7; Monocytes # (A) 0.3 k/uL (0-1.0); Monocytes % (A) 3 %; Neutrophils # (A) 9.4 k/uL (1.3-7.7); Neutrophils % (A) 91 %; Platelet Count 205 k/uL (150-450); RBC 4.54 m/uL (3.80-5.40); RDW 13.8 % (11.5-15.5); WBC 10.2 k/uL (3.8-10.6)
[2019-01-25 06:46] LABS: African American GFR (CKD) >90 (>60 ml/min/1.73 sqM); Anion Gap 5 mmol/L; Blood Urea Nitrogen 33 mg/dL (7-17); Calcium 9.5 mg/dL (8.4-10.2); Carbon Dioxide 31 mmol/L (22-30); Chloride 105 mmol/L (98-107); Glucose 114 mg/dL (74-99); Potassium 4.3 mmol/L (3.5-5.1); Sodium 141 mmol/L (137-145)
[2019-01-25] MEDS: PANTOPRAZOLE 40 MG TABLET PO SCH (07:05)
[2019-01-25] MEDS: IPRATROPIUM-ALBUTEROL 3 ML NEB INHALATION SCH ×4 (07:33→21:07)
[2019-01-25] MEDS: SYMBICORT 160-4.5 MCG INHALER INHALATION SCH (07:33)
[2019-01-25] MEDS: methylPREDNISolone SOD SUCCI 125 MG/2 ML VIAL IV SCH (08:26)
[2019-01-25] MEDS: POLYETHYLENE GLYCOL 3350 17 GM POWD.PACK PO SCH (08:26)
[2019-01-25] MEDS: DOXYCYCLINE 100 MG in SODIUM CHLORIDE 0.9% 100 ML IVPB SCH ×2 (08:26→20:39)
[2019-01-25] MEDS: LOSARTAN 50 MG TAB PO SCH ×2 (08:27→20:39)
[2019-01-25] MEDS: HEPARIN SODIUM,PORCINE 5,000 UNIT/ML 1 ML VIAL SQ SCH ×2 (08:27→20:39)
[2019-01-25] MEDS: MELOXICAM 7.5 MG TAB PO SCH (08:27)
[2019-01-25] MEDS: GABAPENTIN 100 MG CAP PO SCH ×2 (08:27→20:39)
[2019-01-25] MEDS: amLODIPine 5 MG TAB PO SCH (08:27)
[2019-01-25] MEDS: DICYCLOMINE 10 MG CAP PO SCH ×2 (08:27→20:39)
--- NOTE | 2019-01-25 08:56 | P.PN ---
Subjective Progress Note Date: 01/25/19 78-year-old female one of Dr. Alejandro patient with past medical history of COPD oxygen dependent, history of partial colon resection secondary to rectovaginal fistula post repair and partial colon resection, history of breast cancer post left-sided mastectomy, history of CAD on medical management post heart catheter less than 2014. Patient was in the hospital last round mid 2018 for COPD excessive patient was treated and done well. Patient was doing well until about 2 weeks ago when she started having slight increased wheezes cough and shortness of breath she apparently clean her toilet bowl with the bleach and was trying to empty her ostomy bag and spend little bit longer time than intended over the toilet bowl inhale more bleach which in her pain and had a trigger worsening shortness of breath cough wheezes and worsening symptoms. Patient been on steroid for pressure. This time did not help ended up coming to the emergency department at [facility] where was seen and evaluated was quite bit hypoxic having inspiratory expiratory wheezes and was in mild respiratory failure after loading her with steroid and IV antibiotics patient was giving updraft treatment was started feeling a bit better. Was admitted to the hospital for the above problem. 01/24/2018: Patient had a difficult night needing the BiPAP machine, patient states she's had increased coughing and wheezing throughout the night. Her blood pressure has been elevated. This morning patient is sitting up in bed in mild distress. She has O2 via nasal cannula in place. WBC 13.8, hemoglobin 13.7, sodium 140, potassium 4.2, carbon dioxide 32, B UN 31, creatinine 0.65. Patient is afebrile, vital signs hemodynamically stable. 01/25/2019: Patient states she had a better night last night. She is breathing better except for with activity. Patient continues to have a cough however she no longer has any wheezing. Blood pressure remains elevated. Patient has been afebrile. She continues to be on O2 via nasal cannula. Patient will ambulate with pulse ox to see if she is able to have oxygen at home. Most likely discharged tomorrow, however patient needs to be discharged prior to noon due to her ride going to work at 2. Patient denies any pain or shortness of breath at this time. Review of Systems CONSTITUTIONAL: Well-developed mild distress. EYES: No icterus sclerae, no conjunctivitis. EARS, NOSE, MOUTH, THROAT, and FACE: No sore throat, lymphadenopathy, carotid bruits or deformity. RESPIRATORY: Positive shortness of breath cough with activity, no wheezes. CARDIOVASCULAR: No CP, Palpitation, PND, Orthopnea, or angina. GASTROINTESTINAL: Ostomy functioning well with no diarrhea more constipation no nausea or vomiting. GENITOURINARY: Negative for Hematuria or UTI, no kidney stones. INTEGUMENT/BREAST: Negative for any muscular injury with mild osteoarthritis.. HEMATOLOGIC/LYMPHATIC: Negative for bleed or purpura. MUSCULOSKELTAL: Negative for Myalgia or arthralgia. NEURLOGICAL: No LOC, Sz or syncope, blurred vision dizziness or abnormality.. BEHAVIORAL/PSYCH: Negative. ENDOCRINE: Negative. Objective - Vital Signs Vital signs: Vital Signs Temp 97.9 F 01/25/19 04:00 Pulse 104 H 01/25/19 07:45 Resp 20 01/25/19 04:00 BP 162/73 01/25/19 04:00 Pulse Ox 94 L 01/25/19 07:33 Intake & Output 01/24/19 01/25/19 01/25/19 18:59 06:59 18:59 Intake Total 820 200 Output Total 200 Balance 620 200 Weight 42 kg Intake: Intake, IV Titration 100 Amount Doxycycline 100 mg In 100 Sodium Chloride 0.9% 100 ml @ 100 mls/hr IVPB Q12HR [facility] Rx#:[id number] Oral 720 200 Output: Urine 200 Other: Voiding Method Toilet Bedside Commode # Voids 1 1 1 - Exam General Appearance: Alert, cooperative, mild distress, appears stated age. Neck HEENT: Supple, no lymphadenopathy, no thyroid enlargement, no carotid bruits. Lungs: Rhonchi throughout lung [place] with wheezes no crackles, no deformity, positive cough Chest Wall: Decreased Chest wall expansion with deep inspiration no tenderness and no deformity was found on exam, no costochondral pain or discomfort. Heart: Regular rate and rhythm, S1, S2 normal, no murmur, rub or gallop. Back: Symmetric, no curvature, ROM normal, no CVA tenderness. Abdomen: Soft, non-tender, no rebound or rigidity, no hepatosplenomegaly. Extremities: Extremities normal, atraumatic, no cyanosis or edema. Pulses: 2+ and symmetric. Skin: Skin color, texture, tugor normal, no rashes or lesions. Neurologic: Alert oriented x3 cranial nerves II through XII intact, no motor deficit, no abnormal balance or gait - Labs CBC & Chem 7: 01/25/19 05:36 01/25/19 05:36 Labs: Abnormal Lab Results - Last 24 Hours (Table) 01/24/19 01/24/19 01/24/19 Range/Units 11:41 16:56 20:21 Neutrophils # (1.3-7.7) k/uL Lymphocytes # (1.0-4.8) k/uL Carbon Dioxide (22-30) mmol/L BUN (7-17) mg/dL Glucose (74-99) mg/dL POC Glucose (mg/dL) 120 H 149 H 122 H (75-99) mg/dL 01/25/19 01/25/19 01/25/19 Range/Units 05:36 05:36 06:22 Neutrophils # 9.4 H (1.3-7.7) k/uL Lymphocytes # 0.4 L (1.0-4.8) k/uL Carbon Dioxide 31 H (22-30) mmol/L BUN 33 H (7-17) mg/dL Glucose 114 H (74-99) mg/dL POC Glucose (mg/dL) 117 H (75-99) mg/dL Microbiology - Last 24 Hours (Table) 01/22/19 15:03 Blood Culture - Preliminary Blood No Growth after 48 hours Assessment and Plan Plan: 1 acute respiratory failure: Combination off COPD exacerbation along with bronchitis and possible inhalation of bleach at this point. We will continue O2 continue supportive care pulmonary consult appreciated 2 COPD excessive patient: Continue DuoNeb 4 times a day and every 4 hours as needed, continue budesonide, continue Solu-Medrol she was loaded with 125 mg IV and 40 mg every 8 hours. Pulmonary consult appreciated. Symbicort DC'd, continue Pulmicort 3 severe bronchitis: Patient be started on doxycycline for now. 4. 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 Continue respiratory support, avoid chemical toxins 5 hypertension: losartan 150 mg a day, amlodipine 5 mg added 6 chronic neuropathy: Remain on Lyrica 75 mg daily. 7 chronic ostomy with ostomy care: Patient has been doing very well. 8 hyperglycemia: On diet control Accu-Chek with sliding scales coverage will be done. 9 severe GERD: Remain on omeprazole. 10 DVT prophylaxis: Patient be on heparin subcutaneous. CODE STATUS: Full code. Discharge plan: Possible discharge home on Saturday or Saturday Admit patient to inpatient status for more than 2 nights. Impression and plan of care have been directed as dictated by the signing physi noe. Evelia Caro nurse practitioner acting as scribe for signing physician.
[2019-01-25 11:55] LABS: Glucose,Whole Blood 109 mg/dL (75-99)
--- NOTE | 2019-01-25 12:08 | PN ---
PROGRESS NOTE DATE OF SERVICE: 01/25/2019 This is a 78-year-old female with admission diagnosis of COPD exacerbation complicated by purulent tracheobronchitis without adán pneumonia. The patient is doing better. She is much less short of breath. She is resting comfortably, sitting upright in a chair. She still does have complaints of shortness of breath on exertion. She is coughing. Not producing much phlegm. She does feel some tightness in her chest. Overall, she does feel like she is improving. Not quite ready for discharge as yet. PHYSICAL EXAMINATION: Current vital signs include a temperature 98.3 heart rate 87, respiratory rate 22, blood pressure 163/78, mean 106, 2 L saturation 94%. Appears in no acute distress. HEENT examination is grossly unremarkable. Mucous membranes are moist. No oral lesions. NECK: Supple. Full range of motion. No adenopathy or thyromegaly. Neck veins are flat. CARDIOVASCULAR examination reveals regular rhythm rate. S1, S2 normal. Heart rate about mid 80s. No murmur. LUNGS: Reveal some expiratory wheezes. Breath sounds are diminished throughout. There is prolongation on forced maneuver. No crackles. ABDOMEN: Soft. Bowel sounds are heard. EXTREMITIES are intact. No cyanosis, clubbing, or edema. SKIN: Without rash. NEUROLOGIC examination is brief but nonfocal. LABS: Reviewed. White count 10.2, hemoglobin 13.6, hematocrit 41.0, platelet count 305,000. Sodium, potassium and chloride normal. CO2 of 31, anion gap 5. BUN and creatinine were 33 and 0.64. No additional x-rays to review. Microbiology is negative. Medications are reviewed. ASSESSMENT: 1. Acute exacerbation of chronic obstructive pulmonary disease, complicated by purulent tracheobronchitis, without adán pneumonia. 2. History of breast cancer, status post left mastectomy. 3. Coronary artery disease. 4. Gastroesophageal reflux disease. 5. History of benign essential hypertension. 6. Degenerative joint disease. 7. Previous history of colon resection with colostomy. 8. Repair of rectovaginal fistula. 9. Diverticular disease. 10.Migraine cephalgia. 11.Urinary tract infection. 12.Chronic and ongoing tobacco dependence. 13.Kyphoscoliosis. PLAN: Currently, the patient is doing well. She is on appropriate medications. We will continue to follow. Not quite ready for discharge. I expect probable discharge in the next 24-48 hours. I will see her in the office. She will need follow up with me. Additional recommendations and suggestions are forthcoming. Labs, x-rays and medications are all reviewed. MMRODRIGOL / IJN: [id number] /
[2019-01-25] MEDS ORDERED: methylPREDNISolone SOD SUCCI 40 MG/ML 1 ML VIAL IV SCH (16:00)
[2019-01-25 16:51] LABS: Glucose,Whole Blood 141 mg/dL (75-99)
[2019-01-25 20:53] LABS: Glucose,Whole Blood 111 mg/dL (75-99)
[2019-01-25] MEDS: ALPRAZolam 1 MG TAB PO PRN (21:35)
[2019-01-26 06:30] LABS: Glucose,Whole Blood 80 mg/dL (75-99)
[2019-01-26] MEDS: INSULIN ASPART (NovoLOG) 100 UNIT/ML VIAL SQ SCH ×2 (06:36→12:13)
[2019-01-26] MEDS: PANTOPRAZOLE 40 MG TABLET PO SCH (06:36)
[2019-01-26] MEDS: IPRATROPIUM-ALBUTEROL 3 ML NEB INHALATION SCH ×2 (08:04→11:05)
[2019-01-26] MEDS: GABAPENTIN 100 MG CAP PO SCH (08:36)
[2019-01-26] MEDS: HEPARIN SODIUM,PORCINE 5,000 UNIT/ML 1 ML VIAL SQ SCH (08:36)
[2019-01-26] MEDS: amLODIPine 5 MG TAB PO SCH (08:36)
[2019-01-26] MEDS: DICYCLOMINE 10 MG CAP PO SCH (08:36)
[2019-01-26] MEDS: MELOXICAM 7.5 MG TAB PO SCH (08:36)
[2019-01-26] MEDS: LOSARTAN 50 MG TAB PO SCH (08:37)
[2019-01-26] MEDS: POLYETHYLENE GLYCOL 3350 17 GM POWD.PACK PO SCH (08:37)
[2019-01-26 08:49] VITALS: BP 181/73; TEMP 98
[2019-01-26] MEDS ORDERED: predniSONE 50 MG TAB PO SCH (09:00)
[2019-01-26 09:47] VITALS: RESP 18
[2019-01-26] MEDS: DOXYCYCLINE 100 MG in SODIUM CHLORIDE 0.9% 100 ML IVPB SCH (10:16)
[2019-01-26 11:23] VITALS: PULSE 88
[2019-01-26 12:14] LABS: Glucose,Whole Blood 94 mg/dL (75-99)
--- NOTE | 2019-01-28 10:48 | P.DS ---
Providers Date of admission: 01/22/19 18:04 Expected date of discharge: 01/26/19 Attending physician: Raza Velasco Consults: 01/22/19 18:05 Consult Physician Routine Consulting Provider: Kj Bain Consult Reason/Comments: COPD exacerbation Do you want consulting provider notified?: Yes Primary care physician: Alvin Alejandro [facility] Course: 78-year-old female one of Dr. Alejandro patient with past medical history of COPD oxygen dependent, history of partial colon resection secondary to rectovaginal fistula post repair and partial colon resection, history of breast cancer post left-sided mastectomy, history of CAD on medical management post heart catheter less than 2014. Patient was in the hospital last round mid 2017 for COPD excessive patient was treated and done well. Patient was doing well until about 2 weeks ago when she started having slight increased wheezes cough and shortness of breath she apparently clean her toilet bowl with the bleach and was trying to empty her ostomy bag and spend little bit longer time than intended over the toilet bowl inhale more bleach which in her pain and had a trigger worsening shortness of breath cough wheezes and worsening symptoms. Patient been on steroid for pressure. This time did not help ended up coming to the emergency department at [facility] where was seen and evaluated was quite bit hypoxic having inspiratory expiratory wheezes and was in mild respiratory failure after loading her with steroid and IV antibiotics patient was giving updraft treatment was started feeling a bit better. Was admitted to the hospital for the above problem. 01/24/2018: Patient had a difficult night needing the BiPAP machine, patient states she's had increased coughing and wheezing throughout the night. Her blood pressure has been elevated. This morning patient is sitting up in bed in mild distress. She has O2 via nasal cannula in place. WBC 13.8, hemoglobin 13.7, sodium 140, potassium 4.2, carbon dioxide 32, B UN 31, creatinine 0.65. Patient is afebrile, vital signs hemodynamically stable. 01/25/2019: Patient states she had a better night last night. She is breathing better except for with activity. Patient continues to have a cough however she no longer has any wheezing. Blood pressure remains elevated. Patient has been afebrile. She continues to be on O2 via nasal cannula. Patient will ambulate with pulse ox to see if she is able to have oxygen at home. Most likely discharged tomorrow, however patient needs to be discharged prior to noon due to her ride going to work at 2. Patient denies any pain or shortness of breath at this time. 01/26: Patient states that her breathing is not bad today. She does have a chronic cough. Pulse ox down to 86% and oxygen will be ordered for the patient for home. Case management is making arrangements. Patient does have a nebulizer at home as well. Dr. Bain is planning for follow-up in the office with him. Patient will be discharged home today in stable condition. Discharge diagnoses: 1. Acute respiratory distress secondary to combination of COPD exacerbation, acute tracheal bronchitis and possible inhalation of bleach 2. COPD exacerbation 3. Severe bronchitis 4. 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 5. Hypertension 6. Chronic neuropathy 7. Chronic ostomy with ostomy care 8. Hyperglycemia secondary to steroids 9. GERD 10. Chronic hypoxic respiratory failure requiring home oxygen. Discharge plan: home Impression and plan of care have been directed as dictated by the signing physician. Keren Daniels nurse practitioner acting as scribe for signing physician. Patient Condition at Discharge: Good Plan - Discharge Summary Discharge Rx Participant: No New Discharge Prescriptions: New amLODIPine [Norvasc] 5 mg PO DAILY #30 tab predniSONE 0 mg PO DIRECTED #30 tab Budesonide [Pulmicort] 0.5 mg INHALATION BID #60 neb Doxycycline [Vibramycin] 100 mg PO BID 3 Days #6 capsule Polyethylene Glycol 3350 [Miralax] 17 gm PO DAILY PRN #30 packet PRN Reason: Constipation Continue Gabapentin [Neurontin] 100 mg PO BID ALPRAZolam [Xanax] 1 mg PO TID PRN PRN Reason: Anxiety Prochlorperazine [Compazine] 10 mg PO TID PRN #30 tab PRN Reason: Nausea Omeprazole [PriLOSEC] 20 mg PO DAILY Dicyclomine [Bentyl] 10 mg PO BID Tiotropium [place] [Spiriva] 1 cap INHALATION RT-DAILY Albuterol Nebulized [Ventolin Nebulized] 2.5 mg INHALATION RT-TID Losartan Potassium 50 mg PO HS Losartan Potassium 100 mg PO QAM Celecoxib [CeleBREX] 200 mg PO DAILY Discontinued Budesonide/Formoterol Fumarate [Symbicort 160-4.5 Mcg Inhaler] 2 puff INHALATION RT-BID Discharge Medication List Gabapentin [Neurontin] 100 mg PO BID 09/17/14 [History] ALPRAZolam [Xanax] 1 mg PO TID PRN 06/16/15 [History] Prochlorperazine [Compazine] 10 mg PO TID PRN #30 tab 06/18/15 [Rx] Omeprazole [PriLOSEC] 20 mg PO DAILY 03/06/16 [History] Dicyclomine [Bentyl] 10 mg PO BID 11/12/16 [History] Tiotropium [place] [Spiriva] 1 cap INHALATION RT-DAILY 11/12/16 [History] Albuterol Nebulized [Ventolin Nebulized] 2.5 mg INHALATION RT-TID 03/10/18 [History] Celecoxib [CeleBREX] 200 mg PO DAILY 01/22/19 [History] Losartan Potassium 50 mg PO HS 01/22/19 [History] Losartan Potassium 100 mg PO QAM 01/22/19 [History] Budesonide [Pulmicort] 0.5 mg INHALATION BID #60 neb 01/26/19 [Rx] Doxycycline [Vibramycin] 100 mg PO BID 3 Days #6 capsule 01/26/19 [Rx] Polyethylene Glycol 3350 [Miralax] 17 gm PO DAILY PRN #30 packet 01/26/19 [Rx] amLODIPine [Norvasc] 5 mg PO DAILY #30 tab 01/26/19 [Rx] predniSONE 0 mg PO DIRECTED #30 tab 01/26/19 [Rx] Follow up Appointment(s)/Referral(s): Kj Bain DO [Doctor of Osteopathic Medicine] - 01/29/19 10:30 am ( -previously scheduled appointment) Alvin Alejandro DO [Primary Care Provider] - 02/17/19 10:15 am (Saturday -previously scheduled appointment. No earlier appointment available) Discharge Disposition: HOME SELF-CARE
--- NOTE | 2019-01-29 13:53 | CDI ---
Documentation Clarification Form Date: 01/29/2019 From: Bernie Kimble Phone: If questions call Carlo Alba @ [phone], Hours-8:30 am & 5 pm M- F Admit Date: 01/22/2019 6:04:00 PM Patient Name: Katelyn Valencia Visit Number: [id number] Discharge Date: 01/26/2019 2:54:00 PM ATTENTION: The Clinical Documentation Specialists (CDI) and [facility] Coding Staff appreciate your assistance in clarifying documentation. Please respond to the clarification below the line at the bottom and electronically sign. The CDI & [facility] Coding staff will review the response and follow-up if needed. Please note: Queries are made part of the Legal Health Record. If you have any questions, please contact the author of this message via ITS. Dr. Raza Velasco The diagnosis chemical bronchitis/pneumonitis caused by inhaled bleach and COPD acute exacerbation with acute bronchitis was documented in the HP, PNs & DS. History/Risk Factors: COPD, acute on chronic hypoxic respiratory failure, scoliosis, colostomy Clinical Indicators: The patient was cleaning her toliet with bleach and was trying to empty her ostomy bag and spent little bit longer and inhaled bleach, triggering SOB, cough & wheezes. CXR: Chronic changes wo acute pulmonary process. Vital Signs: RR-30, P-101, O2 sat-92 Blood gas: VBG pH-7.42, pco2-44, HCO3-28 Treatment: Nebulizer, IV Solu-Medrol, Symbicort Consults: Dr Bain In your professional opinion, can you please clarify if the acute exacerbation of COPD was caused by the chemical bronchitis/pneumonitis? Yes No Other, please specify Unable to determine MTDD
== END 2019-01-26 14:54 | disposition home or self-care (01) | DRG 917 ==
LOC: EC 14:31 → 3SCARD 18:04
PROVIDERS: ADMIT Internal Medicine Geriatric Medicine; ATTEND Internal Medicine Geriatric Medicine
PROC: 5A09457 Assistance with Respiratory Ventilation, 24-96 Consecutive Hours, Continuous Positive Airway Pressure (ICD-10-PCS; principal; 2019-01-22)
DX: T54.91XA Toxic effect of unspecified corrosive substance, accidental (unintentional), initial encounter (principal); J96.21 Acute and chronic respiratory failure with hypoxia; J44.0 Chronic obstructive pulmonary disease with (acute) lower respiratory infection; J68.0 Bronchitis and pneumonitis due to chemicals, gases, fumes and vapors; J44.1 Chronic obstructive pulmonary disease with (acute) exacerbation; G62.9 Polyneuropathy, unspecified; M41.9 Scoliosis, unspecified; T38.0X5A Adverse effect of glucocorticoids and synthetic analogues, initial encounter; J20.9 Acute bronchitis, unspecified; R73.9 Hyperglycemia, unspecified; I10 Essential (primary) hypertension; J30.9 Allergic rhinitis, unspecified; I25.10 Atherosclerotic heart disease of native coronary artery without angina pectoris; K21.9 Gastro-esophageal reflux disease without esophagitis; F41.9 Anxiety disorder, unspecified; K58.9 Irritable bowel syndrome, unspecified; K57.90 Diverticulosis of intestine, part unspecified, without perforation or abscess without bleeding; M19.90 Unspecified osteoarthritis, unspecified site; F17.200 Nicotine dependence, unspecified, uncomplicated; Z71.6 Tobacco abuse counseling; Z99.81 Dependence on supplemental oxygen; Z79.51 Long term (current) use of inhaled steroids; Z79.1 Long term (current) use of non-steroidal anti-inflammatories (NSAID); Z79.899 Other long term (current) drug therapy; Z93.3 Colostomy status; Z90.49 Acquired absence of other specified parts of digestive tract; Z87.01 Personal history of pneumonia (recurrent); Z85.3 Personal history of malignant neoplasm of breast; Z87.11 Personal history of peptic ulcer disease; Z87.440 Personal history of urinary (tract) infections; Z86.69 Personal history of other diseases of the nervous system and sense organs; Z90.710 Acquired absence of both cervix and uterus; Z90.12 Acquired absence of left breast and nipple; Z98.890 Other specified postprocedural states; Z98.42 Cataract extraction status, left eye; Z98.41 Cataract extraction status, right eye; Z96.1 Presence of intraocular lens; Z88.6 Allergy status to analgesic agent; Z91.041 Radiographic dye allergy status; Z88.5 Allergy status to narcotic agent; Z82.5 Family history of asthma and other chronic lower respiratory diseases; Z82.3 Family history of stroke; Z82.49 Family history of ischemic heart disease and other diseases of the circulatory system; Z80.3 Family history of malignant neoplasm of breast; Z80.9 Family history of malignant neoplasm, unspecified; Y92.031 Bathroom in apartment as the place of occurrence of the external cause
CPT/HCPCS: 36415; 71045; 80048; 82803; 83605; 85025; 85027; 87040; 94640; 94660; 94760; 96361; 96374; 99291

== ENCOUNTER 2019-02-11 07:48 | Inpatient (IN) | payer MEDICARE ==
[2019-02-11] MEDS ORDERED: IPRATROPIUM-ALBUTEROL 3 ML NEB INHALATION STA (07:58)
--- NOTE | 2019-02-11 08:02 | ED ---
General Adult HPI - General Stated complaint: JADE Time Seen by Provider: 02/11/19 07:50 Source: patient, EMS, RN notes reviewed Mode of arrival: EMS Limitations: no limitations - History of Present Illness Initial comments: Patient is a pleasant 78-year-old female presenting to the emergency Department with complaints of difficulty in breathing. Symptoms are similar to previous COPD. Symptoms started just the past day or 2. Patient did have some associated pressure in her chest that is worse with cough. This has resolved. Patient states dyspnea is somewhat improved. Patient did take 2 nebulizers at home and one in route as well as Solu-Medrol in route. No fevers. Patient does have cough with yellow sputum. - Related Data Home Medications Medication Instructions Recorded Confirmed Gabapentin [Neurontin] 100 mg PO BID 09/17/14 02/11/19 ALPRAZolam [Xanax] 1 mg PO TID PRN 06/16/15 02/11/19 Omeprazole [PriLOSEC] 20 mg PO DAILY 03/06/16 02/11/19 Dicyclomine [Bentyl] 10 mg PO BID 11/12/16 02/11/19 Tiotropium [place] [Spiriva] 1 cap INHALATION RT-DAILY 11/12/16 02/11/19 Albuterol Nebulized [Ventolin 2.5 mg INHALATION RT-TID 03/10/18 02/11/19 Nebulized] Celecoxib [CeleBREX] 200 mg PO DAILY 01/22/19 02/11/19 Losartan Potassium 50 mg PO HS 01/22/19 02/11/19 Losartan Potassium 100 mg PO QAM 01/22/19 02/11/19 Budesonide [Pulmicort] 0.5 mg INHALATION RT-BID 02/11/19 02/11/19 Previous Rx's Medication Instructions Recorded Prochlorperazine [Compazine] 10 mg PO TID PRN #30 tab 06/18/15 Polyethylene Glycol 3350 [Miralax] 17 gm PO DAILY PRN #30 packet 01/26/19 amLODIPine [Norvasc] 5 mg PO DAILY #30 tab 01/26/19 Allergies Allergy/AdvReac Type Severity Reaction Status Date / Time aspirin AdvReac Nausea Verified 01/22/19 15:05 codeine AdvReac Nausea Verified 01/22/19 15:05 Iodinated Contrast Media AdvReac Vomiting Verified 01/22/19 15:05 [Iodinated Contrast Media - IV Dye] Review of Systems ROS Statement: Those systems with pertinent positive or pertinent negative responses have been documented in the HPI. ROS Other: All systems not noted in ROS Statement are negative. Constitutional: Denies: fever, chills Eyes: Denies: eye pain ENT: Denies: ear pain Respiratory: Reports: cough, dyspnea Cardiovascular: Reports: chest pain Endocrine: Denies: fatigue Gastrointestinal: Denies: abdominal pain Genitourinary: Denies: dysuria Musculoskeletal: Denies: back pain Skin: Denies: rash Neurological: Denies: headache Past Medical History Past Medical History: Asthma, Coronary Artery Disease (CAD), Cancer, COPD, GERD/Reflux, Hypertension, Osteoarthritis (OA), Pneumonia Additional Past Medical History / Comment(s): L breast cancer with left mastectomy, diverticulosis with diverticular complications and rectovaginal fistula status post fistula repair, colon resection and colostomy placement at [facility], irritable bowel syndrome, peptic ulcer disease, generalized arthritis-multiple joints, leg cramps, frequent UTIs, migraines in the past, bronchitis, allergic rhinitis. History of Any Multi-Drug Resistant Organisms: None Reported Past Surgical History: Adenoidectomy, Appendectomy, Bladder Surgery, Cholecystectomy, Heart Catheterization, Hysterectomy, Orthopedic Surgery, Tonsillectomy Additional Past Surgical History / Comment(s): 09/21/14 cardiac cath with disease-treated medically, cataracts removed bilaterally with lens implants, rt rotator cuff, juan m carpal tunnel, bladder suspension, rectocele repair, hemorrhoidectomy, colonoscopies, camera endoscopy, EGD, left masectomy , vaginal rectal fistula repair, bowel resection and colostomy placement Past Anesthesia/Blood Transfusion Reactions: No Reported Reaction Additional Past Anesthesia/Blood Transfusion Reaction / Comment(s): Pt is claustrophobic. Past Psychological History: Anxiety Smoking Status: Current some day smoker Past Alcohol Use History: None Reported Past Drug Use History: None Reported - Past Family History Father Family Medical History: COPD Additional Family Medical History / Comment(s): Father is . Mother Family Medical History: CVA/TIA, Hypertension Additional Family Medical History / Comment(s): at age 91 Brother(s) Family Medical History: Cancer, Myocardial Infarction (OR) Daughter(s) Family Medical History: No Reported History Son(s) Family Medical History: No Reported History Sister(s) Family Medical History: Cancer Additional Family Medical History / Comment(s): Sister had metastatic brease cancer and is . General Exam Limitations: no limitations General appearance: alert, in no apparent distress Head exam: Present: normocephalic Eye exam: Present: normal appearance Neck exam: Present: normal inspection Respiratory exam: Present: wheezes, rhonchi. Absent: chest wall tenderness Cardiovascular Exam: Present: regular rate, normal rhythm Expanded Peripheral pulses: 2+: Radial (R), Radial (L), Dorsalis Pedis (R), Dorsalis Pedis (L) GI/Abdominal exam: Present: soft. Absent: tenderness Extremities exam: Present: normal inspection. Absent: pedal edema, calf tenderness Neurological exam: Present: alert Psychiatric exam: Present: normal affect, normal mood Skin exam: Present: normal color Course Vital Signs 02/11/19 02/11/19 02/11/19 07:56 07:58 08:00 Temperature 98.4 F Pulse Rate 109 H 114 H Pulse Rate [ Cephalometric Technician ] Respiratory 24 8 L Rate Blood Pressure 118/86 123/55 O2 Sat by Pulse 93 L 97 Oximetry 02/11/19 02/11/19 02/11/19 08:22 08:30 08:55 Temperature Pulse Rate 102 H Pulse Rate [ 109 H Cephalometric Technician ] Respiratory 26 H Rate Blood Pressure 118/86 O2 Sat by Pulse Oximetry 02/11/19 02/11/19 02/11/19 09:00 09:07 09:30 Temperature Pulse Rate 101 H 104 H 102 H Pulse Rate [ Cephalometric Technician ] Respiratory 30 H 21 Rate Blood Pressure 119/53 O2 Sat by Pulse 98 96 Oximetry 02/11/19 09:34 Temperature Pulse Rate 102 H Pulse Rate [ Cephalometric Technician ] Respiratory 21 Rate Blood Pressure 119/53 O2 Sat by Pulse 96 Oximetry EKG Findings - EKG Comments: EKG Findings:: Sinus tachycardia 108. KS 116. QRS 82. QT 328. QTC 439. Left axis. Inferior Q waves. No acute ST change. Nonspecific T waves. Medical Decision Making - Medical Decision Making Patient reevaluated and unchanged. Patient and family updated on results. Patient has continued wheezing and some rhonchi. Case was discussed with Dr. Enriquez, covering for Dr. Leung, who will admit. Patient and family specifically are updated on chest x-ray findings and need for computed tomography scan in the near future. - Lab Data Result diagrams: 02/11/19 08:10 02/11/19 08:10 Lab Results 02/11/19 02/11/19 02/11/19 Range/Units 08:10 08:10 08:10 WBC 11.2 H (3.8-10.6) k/uL RBC 4.55 (3.80-5.40) m/uL Hgb 13.6 (11.4-16.0) gm/dL Hct 41.0 (34.0-46.0) % MCV 90.0 (80.0-100.0) fL MCH 30.0 (25.0-35.0) pg MCHC 33.3 (31.0-37.0) g/dL RDW 14.0 (11.5-15.5) % Plt Count 205 (150-450) k/uL Neutrophils % 80 % Lymphocytes % 9 % Monocytes % 5 % Eosinophils % 1 % Basophils % 2 % Neutrophils # 8.9 H (1.3-7.7) k/uL Lymphocytes # 1.0 (1.0-4.8) k/uL Monocytes # 0.6 (0-1.0) k/uL Eosinophils # 0.1 (0-0.7) k/uL Basophils # 0.2 (0-0.2) k/uL PT 9.5 (9.0-12.0) sec INR 0.9 (<1.2) APTT 23.9 (22.0-30.0) sec Sodium 138 (137-145) mmol/L Potassium 3.5 (3.5-5.1) mmol/L Chloride 104 (98-107) mmol/L Carbon Dioxide 29 (22-30) mmol/L Anion Gap 5 mmol/L BUN 18 H (7-17) mg/dL Creatinine 0.67 (0.52-1.04) mg/dL Est GFR (CKD-EPI)AfAm >90 (>60 ml/min/1.73 sqM) Est GFR (CKD-EPI)NonAf 85 (>60 ml/min/1.73 sqM) Glucose 99 (74-99) mg/dL Calcium 8.7 (8.4-10.2) mg/dL Total Bilirubin 1.5 H (0.2-1.3) mg/dL AST 34 (14-36) U/L ALT 29 (9-52) U/L Alkaline Phosphatase 58 (38-126) U/L Troponin I (0.000-0.034) ng/mL Total Protein 5.5 L (6.3-8.2) g/dL Albumin 3.0 L (3.5-5.0) g/dL 02/11/19 Range/Units 08:10 WBC (3.8-10.6) k/uL RBC (3.80-5.40) m/uL Hgb (11.4-16.0) gm/dL Hct (34.0-46.0) % MCV (80.0-100.0) fL MCH (25.0-35.0) pg MCHC (31.0-37.0) g/dL RDW (11.5-15.5) % Plt Count (150-450) k/uL Neutrophils % % Lymphocytes % % Monocytes % % Eosinophils % % Basophils % % Neutrophils # (1.3-7.7) k/uL Lymphocytes # (1.0-4.8) k/uL Monocytes # (0-1.0) k/uL Eosinophils # (0-0.7) k/uL Basophils # (0-0.2) k/uL PT (9.0-12.0) sec INR (<1.2) APTT (22.0-30.0) sec Sodium (137-145) mmol/L Potassium (3.5-5.1) mmol/L Chloride (98-107) mmol/L Carbon Dioxide (22-30) mmol/L Anion Gap mmol/L BUN (7-17) mg/dL Creatinine (0.52-1.04) mg/dL Est GFR (CKD-EPI)AfAm (>60 ml/min/1.73 sqM) Est GFR (CKD-EPI)NonAf (>60 ml/min/1.73 sqM) Glucose (74-99) mg/dL Calcium (8.4-10.2) mg/dL Total Bilirubin (0.2-1.3) mg/dL AST (14-36) U/L ALT (9-52) U/L Alkaline Phosphatase (38-126) U/L Troponin I 0.014 (0.000-0.034) ng/mL Total Protein (6.3-8.2) g/dL Albumin (3.5-5.0) g/dL - Radiology Data Radiology results: image reviewed (X-ray shows no acute cardio pulmonary process. Lung nodule.) Disposition Clinical Impression: COPD with acute exacerbation Disposition: ADMITTED IP TO THIS HOSP Is patient prescribed a controlled substance at d/c from ED?: No Referrals: Alvin Alejandro DO [Primary Care Provider] - 1-2 days Decision Time: 10:05
[2019-02-11 08:24] LABS: Basophils # (A) 0.2 k/uL (0-0.2); Basophils % (A) 2 %; Eosinophils # (A) 0.1 k/uL (0-0.7); Eosinophils % (A) 1 %; HGB 13.6 gm/dL (11.4-16.0); Lymphocytes % (A) 9 %; MCHC 33.3 g/dL (31.0-37.0); Mean Platelet Volume 6.1; Monocytes # (A) 0.6 k/uL (0-1.0); Monocytes % (A) 5 %; Neutrophils # (A) 8.9 k/uL (1.3-7.7); Neutrophils % (A) 80 %; Platelet Count 205 k/uL (150-450); RBC 4.55 m/uL (3.80-5.40); WBC 11.2 k/uL (3.8-10.6)
[2019-02-11 08:34] LABS: ALT 29 U/L (9-52); AST 34 U/L (14-36); African American GFR (CKD) >90 (>60 ml/min/1.73 sqM); Alkaline Phosphatase 58 U/L (38-126); Anion Gap 5 mmol/L; Blood Urea Nitrogen 18 mg/dL (7-17); Calcium 8.7 mg/dL (8.4-10.2); Carbon Dioxide 29 mmol/L (22-30); Chloride 104 mmol/L (98-107); Glucose 99 mg/dL (74-99); INR 0.9 (<1.2); Partial Thromboplastin Time 23.9 sec (22.0-30.0); Prothrombin Time 9.5 sec (9.0-12.0); Sodium 138 mmol/L (137-145); Total Bilirubin 1.5 mg/dL (0.2-1.3); Total Protein 5.5 g/dL (6.3-8.2)
[2019-02-11 08:35] LABS: Potassium 3.5 mmol/L (3.5-5.1)
--- NOTE | 2019-02-11 08:57 | XR ---
EXAMINATION TYPE: XR chest 2V DATE OF EXAM: 02/11/2019 COMPARISON: 01/22/2019 HISTORY: Difficulty breathing TECHNIQUE: Frontal and lateral views of the chest are obtained. FINDINGS: Pulmonary hyperinflation of underlying COPD. Bilateral hilar prominence, most commonly rel ated to pulmonary arterial hypertension. Left perihilar mass is not excluded. CT chest of 03/10/2018 did demonstrate a 6 mm solid right upper lobe pulmonary nodule for which [address] was recommended f or further evaluation. Sella is seen. Biapical pleural-parenchymal scarring. No new focal consolidati on, pleural effusion or pneumothorax. Diffuse interstitial prominence is chronic. Diffuse osseous dem ineralization is seen. IMPRESSION: 1. No acute cardiopulmonary process. 2. Hilar prominence most likely related to pulmonary arterial hypertension. 3. Known right-sided pulmonary nodule for which 3 month follow-up CT thorax was recommended in 2018. The patient is due for follow-up CT thorax on a nonemergent basis if not previously performed at an [facility] institution.
[2019-02-11] MEDS ORDERED: IPRATROPIUM-ALBUTEROL 3 ML NEB INHALATION PRN (10:06)
[2019-02-11] MEDS: IPRATROPIUM-ALBUTEROL 3 ML NEB INHALATION SCH ×3 (11:29→20:47)
[2019-02-11] MEDS: methylPREDNISolone SOD SUCCI 125 MG/2 ML VIAL IV SCH ×3 (11:39→23:00)
[2019-02-11 11:48] LABS: Glucose,Whole Blood 116 mg/dL (75-99)
[2019-02-11] MEDS ORDERED: PROCHLORPERAZINE 10 MG TAB PO PRN (11:48)
[2019-02-11] MEDS: INSULIN ASPART (NovoLOG) 100 UNIT/ML VIAL SQ SCH ×3 (13:02→20:26)
--- NOTE | 2019-02-11 13:48 | P.HPIM ---
History of Present Illness H&P Date: 02/11/19 Chief Complaint: Difficulty breathing This is a 78-year-old female patient of Dr. Alejandro with a previous medical history significant for coronary artery disease status post left heart catheterization with the left heart catheterization that was done in September 2014 that showed ostial lesion of the diagonal branch and mild disease of the RCA, normal ejection fraction, hypertension and hypertensive cardiovascular disease with left ventricular hypertrophy, chronic tobacco use and dependence with chronic obstructive pulmonary disease, chronic hypoxic respiratory failure on home O2, GERD, rectovaginal fistula repair, colon resection and colostomy placement done at [facility]. She was most recently admitted in April for chest pain secondary to GERD. Patient complains of shortness of breath that has been going on for the past last week and became very severe yesterday. She states I thought it was having a heart attack. She states she can walk and her arms were weak. She complains of frequent palpitations. She is using her home oxygen as needed. She states that she has quit smoking since she left the hospital on January 26. She denies any problems with her colostomy. No nausea or vomiting. She has had sputum production for the past 2 weeks ever since she was discharged from the hospital. Patient was admitted from January 22 through the for COPD exacerbation. Patient came into [facility] emergency center with the above concerns. She was afebrile and hemodynamically stable. EKG was a sinus rhythm with no acute ST changes. White count was 11.2, hemoglobin 13.6, BUN 18 and creatinine 0.67, blood sugar 99, electrolytes were within normal limits as well as kidney function. Total bilirubin 1.5, liver function tests within normal limits, troponin 0.014. Chest x-ray revealed no acute cardio pulmonary process. Hilar prominence most likely related to pulmonary artery hypertension. Known right-sided pulmonary nodule for which [address] was recommended in 2018. Patient was started on DuoNeb treatments, Solu-Medrol IV, and placed in the observation unit and consult with pulmonary medicine requested. Review of Systems Constitutional: Reports fatigue, Reports weakness, Denies chills, Denies fever, Denies poor appetite Eyes: denies blurred vision, denies pain Ears, nose, mouth and throat: Denies dental pain, Denies dysphagia, Denies headache, Denies nasal congestion, Denies nasal discharge, Denies sore throat, Denies vertigo Cardiovascular: Reports palpitations, Reports shortness of breath, Denies chest pain Respiratory: Reports cough, Reports cough with sputum, Reports dyspnea, Reports home oxygen, Reports wheezing, Denies excessive sputum, Denies hemoptysis Gastrointestinal: Denies abdominal pain, Denies diarrhea, Denies loss of appetite, Denies nausea, Denies vomiting Genitourinary: Denies dysuria, Denies hematuria, Denies urgency, Denies urinary frequency Musculoskeletal: Reports muscle weakness, Denies frequent falls, Denies gait dysfunction, Denies myalgias Integumentary: Denies pruritus, Denies rash, Denies wounds Neurological: Denies change in mentation, Denies change in speech, Denies numbness, Denies weakness Psychiatric: Denies anxiety, Denies depression Endocrine: Denies fatigue, Denies weight change Past Medical History Past Medical History: Asthma, Coronary Artery Disease (CAD), Cancer, COPD, GERD/Reflux, Hypertension, Osteoarthritis (OA), Pneumonia, Respiratory Disorder Additional Past Medical History / Comment(s): Pt recently admitted to [facility] on 01/22/19 with acute respiratory distress combination exacerbation COPD/acute tracheal bronchitis and inhaled bleach/chemical pneumonitis. Other hx: L breast cancer with left mastectomy, diverticulosis/diverticular complications and rectovaginal fistula status post fistula repair, colon resection and colostomy placement at [facility], irritable bowel syndrome, peptic ulcer disease, generalized arthritis-multiple joints, leg cramps, frequent UTIs, migraines in the past, bronchitis, allergic rhinitis. History of Any Multi-Drug Resistant Organisms: None Reported Past Surgical History: Adenoidectomy, Appendectomy, Bladder Surgery, Cholecystectomy, Heart Catheterization, Hysterectomy, Orthopedic Surgery, Tonsillectomy Additional Past Surgical History / Comment(s): 09/21/14 cardiac cath with disease-treated medically, cataracts removed bilaterally with lens implants, rt rotator cuff, juan m carpal tunnel, bladder suspension, rectocele repair, hemorrhoidectomy, colonoscopies, camera endoscopy, EGD, left masectomy , vaginal rectal fistula repair, bowel resection and colostomy placement Past Anesthesia/Blood Transfusion Reactions: No Reported Reaction Additional Past Anesthesia/Blood Transfusion Reaction / Comment(s): Pt is claustrophobic. Smoking Status: Former smoker Additional Past Alcohol Use History / Comment(s): Patient started smoking in 1960 1 pack per day and quit 2 weeks ago. 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 She is . She has grown children in the area. - Past Family History Father Family Medical History: COPD Additional Family Medical History / Comment(s): Father is . Mother Family Medical History: CVA/TIA, Hypertension Additional Family Medical History / Comment(s): at age 91 Brother(s) Family Medical History: Cancer, Myocardial Infarction ([place]) Daughter(s) Family Medical History: No Reported History Son(s) Family Medical History: No Reported History Sister(s) Family Medical History: Cancer Additional Family Medical History / Comment(s): Sister had metastatic brease cancer and is . Medications and Allergies Home Medications Medication Instructions Recorded Confirmed Type Gabapentin [Neurontin] 100 mg PO BID 09/17/14 02/11/19 History ALPRAZolam [Xanax] 1 mg PO TID PRN 06/16/15 02/11/19 History Prochlorperazine [Compazine] 10 mg PO TID PRN #30 tab 06/18/15 02/11/19 Rx Omeprazole [PriLOSEC] 20 mg PO DAILY 03/06/16 02/11/19 History Dicyclomine [Bentyl] 10 mg PO BID 11/12/16 02/11/19 History Tiotropium [place] [Spiriva] 1 cap INHALATION RT-DAILY 11/12/16 02/11/19 History Albuterol Nebulized [Ventolin 2.5 mg INHALATION RT-TID 03/10/18 02/11/19 History Nebulized] Celecoxib [CeleBREX] 200 mg PO DAILY 01/22/19 02/11/19 History Losartan Potassium 50 mg PO HS 01/22/19 02/11/19 History Losartan Potassium 100 mg PO QAM 01/22/19 02/11/19 History Polyethylene Glycol 3350 [Miralax] 17 gm PO DAILY PRN #30 packet 01/26/19 02/11/19 Rx amLODIPine [Norvasc] 5 mg PO DAILY #30 tab 01/26/19 02/11/19 Rx Budesonide [Pulmicort] 0.5 mg INHALATION RT-BID 02/11/19 02/11/19 History Allergies Allergy/AdvReac Type Severity Reaction Status Date / Time aspirin AdvReac Nausea Verified 01/22/19 15:05 codeine AdvReac Nausea Verified 01/22/19 15:05 Iodinated Contrast Media AdvReac Vomiting Verified 01/22/19 15:05 [Iodinated Contrast Media - IV Dye] Physical Exam Vitals: Vital Signs Temp Pulse Pulse Pulse Resp BP BP 02/11/19 11:37 100 02/11/19 11:29 100 02/11/19 11:25 98.7 F 94 18 110/63 02/11/19 11:10 98.4 F 97 24 117/53 02/11/19 10:30 97 24 117/53 02/11/19 10:00 100 20 113/54 02/11/19 09:34 102 H 21 119/53 02/11/19 09:30 102 H 21 119/53 02/11/19 09:07 104 H 02/11/19 09:00 101 H 30 H 02/11/19 08:55 102 H 02/11/19 08:30 118/86 02/11/19 08:22 109 H 26 H 02/11/19 08:00 114 H 8 L 123/55 02/11/19 07:58 98.4 F 109 H 24 118/86 02/11/19 07:56 Pulse Ox 02/11/19 11:37 02/11/19 11:29 02/11/19 11:25 90 L 02/11/19 11:10 97 02/11/19 10:30 97 02/11/19 10:00 97 02/11/19 09:34 96 02/11/19 09:30 96 02/11/19 09:07 02/11/19 09:00 98 02/11/19 08:55 02/11/19 08:30 02/11/19 08:22 02/11/19 08:00 02/11/19 07:58 97 02/11/19 07:56 93 L Intake and Output 02/10/19 02/11/19 02/11/19 22:59 06:59 14:59 Other: Weight 33.747 kg General appearance: no acute distress, thin, patient resting in bed and appears to be comfortable - EENT Eyes: anicteric sclerae, EOMI, PERRLA, no ptosis, no scleral icterus, normal appearance ENT: hearing grossly normal, normal oropharynx, no thrush Ears: bilateral: normal - Neck Neck: no lymphadenopathy, normal ROM, no rigidity, no stridor Carotids: bilateral: upstroke delayed Thyroid: bilateral: normal size - Respiratory Respiratory: bilateral: diminished, wheezing, prolonged expiration, negative: dullness, rales - Cardiovascular Rhythm: regular Heart sounds: normal: S1, S2 Abnormal Heart Sounds: systolic murmur, no S3 Gallop, no S4 Gallop, no click - Gastrointestinal General gastrointestinal: normal bowel sounds, soft, no splenomegaly, no tenderness, no umbilical hernia, no ventral hernia - Integumentary Integumentary: normal, normal turgor - Neurologic Neurologic: CNII-XII intact - Musculoskeletal Musculoskeletal: strength equal bilaterally - Psychiatric Psychiatric: A&O x's 3, appropriate affect, intact judgment & insight Results CBC & Chem 7: 02/11/19 08:10 02/11/19 08:10 Labs: Abnormal Lab Results - Last 24 Hours (Table) 02/11/19 02/11/19 02/11/19 Range/Units 08:10 08:10 11:46 WBC 11.2 H (3.8-10.6) k/uL Neutrophils # 8.9 H (1.3-7.7) k/uL BUN 18 H (7-17) mg/dL POC Glucose (mg/dL) 116 H (75-99) mg/dL Total Bilirubin 1.5 H (0.2-1.3) mg/dL Total Protein 5.5 L (6.3-8.2) g/dL Albumin 3.0 L (3.5-5.0) g/dL Thrombosis Risk Factor Assmnt - DVT/VTE Prophylaxis DVT/VTE Prophylaxis: Pharmacologic Prophylaxis ordered - Choose All That Apply Any of the Below Risk Factors Present?: Yes Each Factor Represents 1 point: Abnormal pulmonary function (COPD), Serious lung disease incl. pneumonia (< 1month) Other Risk Factors: Yes Each Risk Factor Represents 2 Points: Malignancy Each Risk Factor Represents 3 Points: Age 75 years or older Thrombosis Risk Factor Assessment Total Risk Factor Score: 7 Thrombosis Risk Factor Assessment Level: High Risk Assessment and Plan Plan: 1. Acute COPD exacerbation. Continue DuoNeb treatments every 6 hours and every 4 hours as needed, Pulmicort 1 mg twice daily, Solu-Medrol 60 mg IV every 6 hours, doxycycline 100 mg twice daily. Consult with Dr. Luis conte. 2. History of rectal vaginal fistula, repaired with colon resection and colostomy placement done at [facility], [facility]. 3. History of coronary artery disease. Stable at this time. 4. Hypertension and hypertensive cardiovascular disease. Continue losartan 100 mg in the morning and 50 mg in the evening . 5. Hyperlipidemia. Low-cholesterol diet. 6. GERD. Continue current Protonix 40 mg orally once every day. 7. Osteoarthritis. Continue meloxicam 15 mg orally once every day. 8. Tobacco use and dependence. Patient recently quit smoking. 9. Osteoporosis. Stable. 10. DVT prophylaxis. Heparin subcutaneously every 12 hours. 11. GI prophylaxis. On Protonix 40 mg orally once every day. 12. Inpatient. Estimated length of stay 2 days. 13. Full code. Discharge plan: Return home Impression and plan of care have been directed as dictated by the signing physician. Keren Daniels nurse practitioner acting as scribe for signing physician.
[2019-02-11 15:14] VITALS: BMI 16.8
[2019-02-11 16:32] LABS: Glucose,Whole Blood 193 mg/dL (75-99)
--- NOTE | 2019-02-11 19:49 | CONS ---
CONSULTATION PULMONARY/CRITICAL CARE CONSULTATION: DATE OF SERVICE: 02/11/2019 This is a 78-year-old female whom I am asked to see in consultation. She was recently in the hospital for COPD exacerbation. Subsequent to that hospitalization for the same reason, the patient was seen in the office by me and she was actually doing relatively well. She comes into the emergency room complaining of shortness of breath. She is coughing and wheezing. Coughing up a small amount of phlegm. No fever or chills. No nausea, vomiting, diarrhea. No genitourinary complaints. In addition to the shortness of breath and chest congestion, cough and so forth, she also complained of pain in the chest area. She felt like she was having a heart attack. Anyway, the patient is down in the observation area. She is feeling a bit better. The chest pain has relieved itself. Cardiology was not consulted. The patient denies, as I mentioned, any genitourinary complaints or any GI complaints at this time. She had not been feeling well for a number of days. Again, when I saw her in the office she was doing much better, but family members stated that sometime after that, she started having increasing and intermittent episodes of shortness of breath. HOME MEDICATIONS: Her home medications include: 1. Neurontin. 2. Xanax. 3. Prilosec. 4. Bentyl. 5. Spiriva. 6. Albuterol updrafts. 7. Celebrex. 8. Losartan. 9. Pulmicort. 10.Compazine. 11.MiraLAX. 12.Amlodipine. ALLERGIES: ALLERGIES include: 1. ASPIRIN. 2. CODEINE. 3. IVP DYE. MEDICAL HISTORY: Her medical history includes: 1. COPD which is quite severe. 2. CAD. 3. GERD. 4. Hypertension. 5. DJD. 6. Pneumonia. 7. Previous mastectomy on the left side for left breast cancer. 8. Diverticular disease. 9. Rectovaginal fistula, status post fistula repair. 10.Colon resection with colostomy. 11.Irritable bowel syndrome. 12.Peptic ulcer disease. 13.Frequent UTIs. 14.Migraine cephalgia. SURGICAL HISTORY: Surgical history includes: 1. Adenoidectomy. 2. Appendectomy. 3. Bladder surgery. 4. Cholecystectomy. 5. Heart catheterization. 6. Hysterectomy. 7. Multiple orthopedic procedures. 8. Tonsillectomy. 9. Cardiac catheterization. 10.Cataract surgery. 11.Rectocele repair. 12.Bladder suspension surgery, among other procedures, including bowel resection with colostomy and repair of rectovaginal fistula. SOCIAL HISTORY: Positive for ongoing tobacco use. Despite counseling, the patient continues to smoke. Alcohol and drug use are denied. FAMILY HISTORY: Positive for father with COPD, who is , and her mother who at age 91 from complications of stroke and hypertension. She has a brother with cancer and myocardial infarction, a daughter who is healthy, and a son who is healthy. She had a sister with metastatic breast cancer who is . REVIEW OF SYSTEMS: CONSTITUTIONAL: Weakness. NEUROLOGIC: Negative. HEENT: Negative. CARDIOVASCULAR: Chest pain, resolved. PULMONARY: Shortness of breath, chest tightness, wheezing, cough, chest congestion and occasional phlegm production. GI: Negative. : Negative. RHEUMATOLOGIC: Negative. IMMUNOLOGIC: Negative. ENDOCRINOLOGIC: Negative. DERMATOLOGIC: Negative. PHYSICAL EXAMINATION: VITAL SIGNS: Current vital signs are reviewed. Temperature is 98.7, heart rate 109, respiratory rate 18, blood pressure 110/63, mean 78. Two-liter saturation between 92% and 94%. GENERAL APPEARANCE: Appears in no acute distress. Not currently having any pain. No audible wheezing, use of accessory muscles. Mild conversational dyspnea. HEENT: HEENT examination is grossly unremarkable. Nasal oxygen in place. NECK: Supple. Full range of motion. No adenopathy. Neck veins are flat. CARDIOVASCULAR: Cardiovascular examination reveals regular rhythm and rate. Heart rate about 95 beats per minute. S1, S2 normal. No S3, S4 or murmur. Heart sounds are distant. LUNGS: Lungs reveal inspiratory and expiratory wheezes and rhonchi. Breath sounds are rather coarse. There is prolongation on forced maneuver. No crackles. Adventitious lung sounds are more prominent on forced maneuver. ABDOMEN: Soft. Bowel sounds are heard. EXTREMITIES: Intact. No cyanosis, clubbing or edema. SKIN: Without rash. NEUROLOGIC: Neurologic examination is brief but nonfocal. IMAGING: Chest x-ray shows primarily changes of COPD. There is a right-sided pulmonary nodule. LAB DATA: Reviewed. White count 11.2, hemoglobin 13.6, hematocrit 41.0, platelet count 205,000. PT, INR, and PTT normal. Sodium, potassium, chloride, CO2 all normal. Anion gap normal. BUN and creatinine were 18 and 0.67. Albumin 3.0, total protein 5.5. Medications will be reviewed. ASSESSMENT: 1. Chronic obstructive pulmonary disease exacerbation complicated by mild purulent tracheobronchitis without evidence of pneumonia. 2. Solitary pulmonary nodule, which will need outpatient workup. 3. History of breast cancer, status post left mastectomy. 4. Coronary artery disease. 5. Gastroesophageal reflux disease. 6. Hypertension. 7. Degenerative joint disease. 8. History of pneumonia. 9. Previous colon resection with colostomy. 10.Repair of rectovaginal fistula. 11.Diverticular disease. 12.Peptic ulcer disease. 13.Migraine cephalgia. 14.Frequent urinary tract infections. 15.Ongoing tobacco use with nicotine addiction despite counseling. PLAN: The patient's medications are reviewed. Will make sure she is on a short-acting beta agonist, a short-acting muscarinic antagonist, a long-acting beta agonist, inhaled corticosteroids, systemic corticosteroids and antibiotics. We counseled her about the importance of smoking cessation. No additional recommendations are made. Prognosis is guarded. She will need an outpatient CT scan to evaluate the pulmonary nodule. MMODL / IJN: [id number] /
[2019-02-11] MEDS ORDERED: BUDESONIDE 0.5 MG/2 ML NEBU INHALATION SCH (20:00)
[2019-02-11 20:06] LABS: Glucose,Whole Blood 179 mg/dL (75-99)
[2019-02-11] MEDS: GABAPENTIN 100 MG CAP PO SCH (20:14)
[2019-02-11] MEDS: LOSARTAN 50 MG TAB PO SCH (20:15)
[2019-02-11] MEDS: DOXYCYCLINE 100 MG CAP PO SCH (20:15)
[2019-02-11] MEDS: DICYCLOMINE 10 MG CAP PO SCH (20:25)
[2019-02-11] MEDS: ALPRAZolam 1 MG TAB PO PRN (20:25)
[2019-02-11] MEDS: BUDESONIDE 1 MG/2 ML NEBU INHALATION SCH (20:48)
[2019-02-12] MEDS: methylPREDNISolone SOD SUCCI 125 MG/2 ML VIAL IV SCH ×2 (05:15→12:10)
[2019-02-12 06:59] LABS: Glucose,Whole Blood 119 mg/dL (75-99)
[2019-02-12] MEDS: IPRATROPIUM-ALBUTEROL 3 ML NEB INHALATION SCH ×4 (07:54→19:36)
[2019-02-12] MEDS: BUDESONIDE 1 MG/2 ML NEBU INHALATION SCH ×2 (07:55→19:36)
[2019-02-12] MEDS ORDERED: NON FORMULARY DRUG (Tiotropium Bromide [Spiriva] 1 CAP) INHALATION SCH (08:00)
[2019-02-12] MEDS: INSULIN ASPART (NovoLOG) 100 UNIT/ML VIAL SQ SCH ×4 (08:40→20:14)
[2019-02-12] MEDS: GABAPENTIN 100 MG CAP PO SCH ×2 (08:44→20:15)
[2019-02-12] MEDS: LOSARTAN 50 MG TAB PO SCH ×2 (08:44→20:15)
[2019-02-12] MEDS: amLODIPine 5 MG TAB PO SCH (08:45)
[2019-02-12] MEDS: PANTOPRAZOLE 40 MG TABLET PO SCH (08:45)
[2019-02-12] MEDS: DOXYCYCLINE 100 MG CAP PO SCH ×2 (08:45→20:15)
[2019-02-12] MEDS: MELOXICAM 7.5 MG TAB PO SCH (08:45)
[2019-02-12] MEDS: POLYETHYLENE GLYCOL 3350 17 GM POWD.PACK PO PRN (08:50)
[2019-02-12] MEDS: BENZONATATE 100 MG CAP PO SCH ×3 (10:13→20:15)
[2019-02-12] MEDS: guaiFENesin SYRUP 100MG/5ML 200 MG/10 ML CUP PO PRN (10:14)
[2019-02-12] MEDS: DICYCLOMINE 10 MG CAP PO SCH ×2 (10:14→20:15)
--- NOTE | 2019-02-12 11:20 | P.PN ---
Subjective Progress Note Date: 02/12/19 Principal diagnosis: Acute exacerbation of COPD On 02/12/2019 patient seen in follow-up in the observation unit, doing better, breathing easier, still has some scattered wheezes and mild dyspnea, but no acute distress. She is on 2 L of oxygen and her pulse ox is 95%, she is been afebrile. No complaints of chest pain, 3 sets of troponins have been negative, vital signs are stable, complaining of a cough, is on a combination of steroids, doxycycline, and breathing treatments. Improving, but not back to baseline Objective - Vital Signs Vital signs: Vital Signs Temp 98.2 F 02/12/19 08:00 Pulse 92 02/12/19 08:14 Resp 18 02/12/19 08:00 BP 127/56 02/12/19 08:00 Pulse Ox 95 02/12/19 08:00 Intake & Output 02/11/19 02/12/19 02/12/19 18:59 06:59 18:59 Weight 41.73 kg Other: Voiding Method Toilet Toilet Toilet # Voids 1 2 - Exam GENERAL EXAM: Alert, pleasant, 78-year-old white female on 2 L of oxygen with a pulse ox of 95% comfortable in no apparent distress. HEAD: Normocephalic/atraumatic. EYES: Normal reaction of pupils, equal size. Conjunctiva pink, sclera white. NOSE: Clear with pink turbinates. THROAT: No erythema or exudates. NECK: No masses, no JVD, no thyroid enlargement, no adenopathy. CHEST: No chest wall deformity. Symmetrical expansion. LUNGS: Equal air entry with expiratory wheezes and congested nonproductive cough CVS: Regular rate and rhythm, normal S1 and S2, no gallops, no murmurs, no rubs ABDOMEN: Soft, nontender. No hepatosplenomegaly, normal bowel sounds, no guarding or rigidity. EXTREMITIES: No clubbing, no edema, no cyanosis, 2+ pulses and upper and lower extremities. MUSCULOSKELETAL: Muscle strength and tone normal. SPINE: No scoliosis or deformity SKIN: No rashes CENTRAL NERVOUS SYSTEM: Alert and oriented -3. No focal deficits, tone is normal in all 4 extremities. PSYCHIATRIC: Alert and oriented -3. Appropriate affect. Intact judgment and insight. - Labs CBC & Chem 7: 02/11/19 08:10 02/11/19 08:10 Labs: Abnormal Lab Results - Last 24 Hours (Table) 02/11/19 02/11/19 02/11/19 Range/Units 11:46 16:29 20:04 POC Glucose (mg/dL) 116 H 193 H 179 H (75-99) mg/dL 02/12/19 Range/Units 06:58 POC Glucose (mg/dL) 119 H (75-99) mg/dL Assessment and Plan Plan: Assessment: #1. Acute exacerbation of chronic obstructive pulmonary disease, complicated by mild tracheobronchitis #2. Solitary pulmonary nodule, to be followed up on outpatient basis #3. History of breast cancer status post left mastectomy #4. Coronary artery disease #5. GERD/reflux #6. Hypertension #7. History of pneumonia #8. Previous history of colon resection with colostomy #9. Previous repair of rectovaginal fistula #10. Diverticular disease #11. Peptic ulcer disease #13. Migraine cephalgia #14. History of frequent urinary tract infections Plan: Continue with current medical treatment, current dose of IV steroids, antibiotics, and breathing treatments, patient is slowly improving, but not back to baseline, will benefit from about 24 hours of inpatient treatments, and IV steroids. Will continue to follow I performed a history & physical examination of the patient and discussed their management with my nurse practitioner, Taylor Leslie. I reviewed the nurse practitioner's note and agree with the documented findings and plan of care. Lung sounds are positive for scattered wheezes throughout the lung [place]. The findings and the impression was discussed with the patient. I attest to the documentation by the nurse practitioner. Time with Patient: Less than 30
[2019-02-12 11:52] LABS: Glucose,Whole Blood 128 mg/dL (75-99)
--- NOTE | 2019-02-12 15:03 | P.PN ---
Subjective Progress Note Date: 02/12/19 This is a 78-year-old female patient of Dr. Alejandro with a previous medical history significant for coronary artery disease status post left heart catheterization with the left heart catheterization that was done in September 2014 that showed ostial lesion of the diagonal branch and mild disease of the RCA, normal ejection fraction, hypertension and hypertensive cardiovascular disease with left ventricular hypertrophy, chronic tobacco use and dependence with chronic obstructive pulmonary disease, chronic hypoxic respiratory failure on home O2, GERD, rectovaginal fistula repair, colon resection and colostomy placement done at [facility]. She was most recently admitted in April for chest pain secondary to GERD. Patient complains of shortness of breath that has been going on for the past last week and became very severe yesterday. She states I thought it was having a heart attack. She states she can walk and her arms were weak. She complains of frequent palpitations. She is using her home oxygen as needed. She states that she has quit smoking since she left the hospital on January 26. She denies any problems with her colostomy. No nausea or vomiting. She has had sputum production for the past 2 weeks ever since she was discharged from the hospital. Patient was admitted from January 22 through the for COPD exacerbation. Patient came into [facility] emergency center with the above concerns. She was afebrile and hemodynamically stable. EKG was a sinus rhythm with no acute ST changes. White count was 11.2, hemoglobin 13.6, BUN 18 and creatinine 0.67, blood sugar 99, electrolytes were within normal limits as well as kidney function. Total bilirubin 1.5, liver function tests within normal limits, troponin 0.014. Chest x-ray revealed no acute cardio pulmonary process. Hilar prominence most likely related to pulmonary artery hypertension. Known right-sided pulmonary nodule for which [address] was recommended in 2018. Pat ient was started on DuoNeb treatments, Solu-Medrol IV, and placed in the observation unit and consult with pulmonary medicine requested. 02/12: Patient states that her breathing is improved today. Repeat troponins have come back negative. She has been afebrile, pulse ox 95% on 2 L. We will plan to decrease the Medrol 40 mg every 8 and start prednisone in the morning with anticipated discharge by tomorrow. Patient is concerned that she had endoscopy scheduled with Dr. Burgos as an outpatient for tomorrow. Patient's nurse will contact endoscopy to cancel. Review of Systems Constitutional: Reports fatigue, Reports weakness, Denies chills, Denies fever, Denies poor appetite Ears, nose, mouth and throat: Denies dental pain, Denies dysphagia, Denies headache, Denies nasal congestion, Denies nasal discharge, Denies sore throat, Denies vertigo Cardiovascular: Reports palpitations, Reports shortness of breath, Denies chest pain Respiratory: Reports cough, Reports cough with sputum, Reports dyspnea, Reports home oxygen, Reports wheezing, Denies excessive sputum, Denies hemoptysis Gastrointestinal: Denies abdominal pain, Denies diarrhea, Denies loss of appetite, Denies nausea, Denies vomiting Genitourinary: Denies dysuria, Denies hematuria, Denies urgency, Denies urinary frequency Musculoskeletal: Reports muscle weakness, Denies frequent falls, Denies gait dysfunction, Denies myalgias Integumentary: Denies pruritus, Denies rash, Denies wounds Neurological: Denies change in mentation, Denies change in speech, Denies numbness, Denies weakness Psychiatric: Denies anxiety, Denies depression Endocrine: Denies fatigue, Denies weight change Objective - Vital Signs Vital signs: Vital Signs Temp 98.2 F 02/12/19 08:00 Pulse 92 02/12/19 12:34 Resp 18 02/12/19 12:00 BP 127/56 02/12/19 08:00 Pulse Ox 95 02/12/19 08:00 Intake & Output 02/11/19 02/12/19 02/12/19 18:59 06:59 18:59 Weight 41.73 kg Other: Voiding Method Toilet Toilet Toilet # Voids 1 2 1 - Exam General appearance: no acute distress, thin, patient resting in bed - EENT Eyes: anicteric sclerae, EOMI, PERRLA, no ptosis, no scleral icterus, normal appearance ENT: hearing grossly normal, normal oropharynx, no thrush Ears: bilateral: normal - Neck Neck: no lymphadenopathy, normal ROM, no rigidity, no stridor Carotids: bilateral: upstroke delayed Thyroid: bilateral: normal size - Respiratory Respiratory: bilateral: diminished, wheezing, prolonged expiration, negative: dullness, rales - Cardiovascular Rhythm: regular Heart sounds: normal: S1, S2 Abnormal Heart Sounds: systolic murmur, no S3 Gallop, no S4 Gallop, no click - Gastrointestinal General gastrointestinal: normal bowel sounds, soft, no splenomegaly, no tenderness, no umbilical hernia, no ventral hernia - Integumentary Integumentary: normal, normal turgor - Neurologic Neurologic: CNII-XII intact - Musculoskeletal Musculoskeletal: strength equal bilaterally - Psychiatric Psychiatric: A&O x's 3, appropriate affect, intact judgment & insight - Labs CBC & Chem 7: 02/11/19 08:10 02/11/19 08:10 Labs: Abnormal Lab Results - Last 24 Hours (Table) 02/11/19 02/11/19 02/12/19 Range/Units 16:29 20:04 06:58 POC Glucose (mg/dL) 193 H 179 H 119 H (75-99) mg/dL 02/12/19 Range/Units 11:50 POC Glucose (mg/dL) 128 H (75-99) mg/dL Assessment and Plan Plan: 1. Acute COPD exacerbation. Continue DuoNeb treatments every 6 hours and every 4 hours as needed, Pulmicort 1 mg twice daily, Solu-Medrol decreased to 40 mg every 8 hours, doxycycline 100 mg twice daily. Consult with Dr. Luis conte. 2. History of rectal vaginal fistula, repaired with colon resection and colostomy placement done at [facility], [facility]. 3. History of coronary artery disease. Stable at this time. 4. Hypertension and hypertensive cardiovascular disease. Continue losartan 100 mg in the morning and 50 mg in the evening . 5. Hyperlipidemia. Low-cholesterol diet. 6. GERD. Continue current Protonix 40 mg orally once every day. 7. Osteoarthritis. Continue meloxicam 15 mg orally once every day. 8. Tobacco use and dependence. Patient recently quit smoking. 9. Osteoporosis. Stable. 10. DVT prophylaxis. Heparin subcutaneously every 12 hours. 11. GI prophylaxis. On Protonix 40 mg orally once every day. Full code. Discharge plan: Return home tomorrow Impression and plan of care have been directed as dictated by the signing amrik rouse. Keren Daniels nurse practitioner acting as scribe for signing physician.
[2019-02-12 16:51] LABS: Glucose,Whole Blood 179 mg/dL (75-99)
[2019-02-12] MEDS: methylPREDNISolone SOD SUCCI 40 MG/ML 1 ML VIAL IV SCH ×2 (17:06→23:18)
[2019-02-12 19:58] LABS: Glucose,Whole Blood 253 mg/dL (75-99)
[2019-02-12] MEDS: ALPRAZolam 1 MG TAB PO PRN (20:19)
[2019-02-13 06:41] LABS: Glucose,Whole Blood 133 mg/dL (75-99)
[2019-02-13] MEDS ORDERED: MAG HYDROX/AL HYDROX/SIMETH 30 ML CUP PO PRN (06:45)
[2019-02-13] MEDS: POLYETHYLENE GLYCOL 3350 17 GM POWD.PACK PO PRN (07:07)
[2019-02-13] MEDS: INSULIN ASPART (NovoLOG) 100 UNIT/ML VIAL SQ SCH ×4 (07:56→20:46)
[2019-02-13] MEDS: PANTOPRAZOLE 40 MG TABLET PO SCH (08:40)
[2019-02-13] MEDS: BENZONATATE 100 MG CAP PO SCH ×3 (08:40→21:01)
[2019-02-13] MEDS: DOXYCYCLINE 100 MG CAP PO SCH ×2 (08:40→21:00)
[2019-02-13] MEDS: DICYCLOMINE 10 MG CAP PO SCH ×2 (08:40→21:00)
[2019-02-13] MEDS: LOSARTAN 50 MG TAB PO SCH ×2 (08:41→21:00)
[2019-02-13] MEDS: MELOXICAM 7.5 MG TAB PO SCH (08:41)
[2019-02-13] MEDS: amLODIPine 5 MG TAB PO SCH (08:41)
[2019-02-13] MEDS: GABAPENTIN 100 MG CAP PO SCH ×2 (08:41→21:00)
[2019-02-13] MEDS: methylPREDNISolone SOD SUCCI 40 MG/ML 1 ML VIAL IV SCH ×3 (08:42→23:25)
[2019-02-13] MEDS: BUDESONIDE 1 MG/2 ML NEBU INHALATION SCH ×2 (08:52→18:59)
[2019-02-13] MEDS: IPRATROPIUM-ALBUTEROL 3 ML NEB INHALATION SCH ×4 (08:52→18:57)
[2019-02-13] MEDS: guaiFENesin SYRUP 100MG/5ML 200 MG/10 ML CUP PO PRN ×2 (10:16→19:24)
--- NOTE | 2019-02-13 10:54 | P.PN ---
Subjective Progress Note Date: 02/13/19 Principal diagnosis: Acute exacerbation of COPD On 02/12/2019 patient seen in follow-up in the observation unit, doing better, breathing easier, still has some scattered wheezes and mild dyspnea, but no acute distress. She is on 2 L of oxygen and her pulse ox is 95%, she is been afebrile. No complaints of chest pain, 3 sets of troponins have been negative, vital signs are stable, complaining of a cough, is on a combination of steroids, doxycycline, and breathing treatments. Improving, but not back to baseline On 02/13/2019 patient seen in follow-up in the observation unit, still quite dyspneic and bronchospastic, has a nonproductive congested cough, she is moderately dyspneic at rest, continues on supplemental oxygen, has been afebrile, lung sounds reveal diffuse wheezes and rhonchi. Repeat chest x-ray film has been reviewed showing no acute cardiopulmonary process. Objective - Vital Signs Vital signs: Vital Signs Temp 98 F 02/13/19 07:21 Pulse 92 02/13/19 09:09 Resp 18 02/13/19 07:21 BP 132/61 02/13/19 07:21 Pulse Ox 94 L 02/13/19 07:21 Intake & Output 02/12/19 02/13/19 02/13/19 18:59 06:59 18:59 Other: Voiding Method Toilet Toilet Toilet # Voids 1 1 1 - Exam GENERAL EXAM: Alert, pleasant, 78-year-old white female on 2 L of oxygen with a pulse ox of 95% comfortable in no apparent distress. HEAD: Normocephalic/atraumatic. EYES: Normal reaction of pupils, equal size. Conjunctiva pink, sclera white. NOSE: Clear with pink turbinates. THROAT: No erythema or exudates. NECK: No masses, no JVD, no thyroid enlargement, no adenopathy. CHEST: No chest wall deformity. Symmetrical expansion. LUNGS: Equal air entry with expiratory wheezes and congested nonproductive cough CVS: Regular rate and rhythm, normal S1 and S2, no gallops, no murmurs, no rubs ABDOMEN: Soft, nontender. No hepatosplenomegaly, normal bowel sounds, no guarding or rigidity. EXTREMITIES: No clubbing, no edema, no cyanosis, 2+ pulses and upper and lower extremities. MUSCULOSKELETAL: Muscle strength and tone normal. SPINE: No scoliosis or deformity SKIN: No rashes CENTRAL NERVOUS SYSTEM: Alert and oriented -3. No focal deficits, tone is normal in all 4 extremities. PSYCHIATRIC: Alert and oriented -3. Appropriate affect. Intact judgment and insight. - Labs CBC & Chem 7: 02/11/19 08:10 02/11/19 08:10 Labs: Abnormal Lab Results - Last 24 Hours (Table) 02/12/19 02/12/19 02/12/19 Range/Units 11:50 16:49 19:57 POC Glucose (mg/dL) 128 H 179 H 253 H (75-99) mg/dL 02/13/19 Range/Units 06:39 POC Glucose (mg/dL) 133 H (75-99) mg/dL Assessment and Plan Plan: Assessment: #1. Acute exacerbation of chronic obstructive pulmonary disease, complicated by mild tracheobronchitis #2. Solitary pulmonary nodule, to be followed up on outpatient basis #3. History of breast cancer status post left mastectomy #4. Coronary artery disease #5. GERD/reflux #6. Hypertension #7. History of pneumonia #8. Previous history of colon resection with colostomy #9. Previous repair of rectovaginal fistula #10. Diverticular disease #11. Peptic ulcer disease #13. Migraine cephalgia #14. History of frequent urinary tract infections Plan: Still quite dyspneic, and bronchospastic, moderately dyspneic at rest, not ready for discharge, today's chest x-ray has been reviewed, no radiology report is available, but the films have been reviewed, showing no acute cardiopulmonary pr ocess. Continue current inpatient treatment, continue IV steroids, antibiotics, and bronchodilators. I performed a history & physical examination of the patient and discussed their management with my nurse practitioner, Taylor Leslie. I reviewed the nurse practitioner's note and agree with the documented findings and plan of care. Lung sounds are positive for scattered wheezes throughout the lung [place]. The findings and the impression was discussed with the patient. I attest to the documentation by the nurse practitioner. Time with Patient: Less than 30
--- NOTE | 2019-02-13 10:59 | XR ---
EXAMINATION TYPE: XR chest 2V DATE OF EXAM: 02/13/2019 COMPARISON: 02/11/2019 HISTORY: Pneumonia, COPD, cough TECHNIQUE: Frontal and lateral views of the chest are obtained. FINDINGS: Biapical pleural-parenchymal scarring is seen. Hilar prominence is again noted. Surgical c lips of the left hemithorax. COPD is present with pulmonary hyperinflation. No new focal consolidatio n, pleural effusion or pneumothorax. Diffuse osseous demineralization and mild degenerative changes o f the spine. Again the known pulmonary nodule on the prior chest CT of 03/10/2018 is not seen radiogr aphically. IMPRESSION: Unchanged exam from 02/11/2019 with underlying COPD, probable pulmonary arterial hyperte nsion, and no new focal consolidation. Again, the known right-sided pulmonary nodule for which 3 [address] h follow-up CT thorax was recommended in 2018. The patient is due for follow-up CT thorax on a noneme rgent basis if not previously performed at an outside institution.
[2019-02-13 11:56] LABS: Glucose,Whole Blood 151 mg/dL (75-99)
[2019-02-13] MEDS ORDERED: MENTHOL (NICE) LOZENGE MUCOUS MEM PRN (15:04)
[2019-02-13] MEDS: BENZOCAINE/MENTHOL LOZENG 1 EACH LOZENGE MUCOUS MEM PRN ×2 (15:26→18:41)
--- NOTE | 2019-02-13 15:26 | P.PN ---
Subjective Progress Note Date: 02/13/19 This is a 78-year-old female patient of Dr. Alejandro with a previous medical history significant for coronary artery disease status post left heart catheterization with the left heart catheterization that was done in September 2014 that showed ostial lesion of the diagonal branch and mild disease of the RCA, normal ejection fraction, hypertension and hypertensive cardiovascular disease with left ventricular hypertrophy, chronic tobacco use and dependence with chronic obstructive pulmonary disease, chronic hypoxic respiratory failure on home O2, GERD, rectovaginal fistula repair, colon resection and colostomy placement done at [facility]. She was most recently admitted in April for chest pain secondary to GERD. Patient complains of shortness of breath that has been going on for the past last week and became very severe yesterday. She states I thought it was having a heart attack. She states she can walk and her arms were weak. She complains of frequent palpitations. She is using her home oxygen as needed. She states that she has quit smoking since she left the hospital on January 26. She denies any problems with her colostomy. No nausea or vomiting. She has had sputum production for the past 2 weeks ever since she was discharged from the hospital. Patient was admitted from January 22 through the for COPD exacerbation. Patient came into [facility] emergency center with the above concerns. She was afebrile and hemodynamically stable. EKG was a sinus rhythm with no acute ST changes. White count was 11.2, hemoglobin 13.6, BUN 18 and creatinine 0.67, blood sugar 99, electrolytes were within normal limits as well as kidney function. Total bilirubin 1.5, liver function tests within normal limits, troponin 0.014. Chest x-ray revealed no acute cardio pulmonary process. Hilar prominence most likely related to pulmonary artery hypertension. Known right-sided pulmonary nodule for which [address] was recommended in 2018. Pat ient was started on DuoNeb treatments, Solu-Medrol IV, and placed in the observation unit and consult with pulmonary medicine requested. 02/12: Patient states that her breathing is improved today. Repeat troponins have come back negative. She has been afebrile, pulse ox 95% on 2 L. We will plan to decrease the Medrol 40 mg every 8 and start prednisone in the morning with anticipated discharge by tomorrow. Patient is concerned that she had endoscopy scheduled with Dr. Burgos as an outpatient for tomorrow. Patient's nurse will contact endoscopy to cancel. 02/13: Patient continues to have dyspnea and wheezing. She has a cough nonproductive and cough medicine is not helping she would like Cepacol which is been added. Patient has been afebrile. No change in Solu-Medrol today. Repeat chest x-ray ordered which is unchanged compared to February 11. Underlying COPD and probable pulmonary artery hypertension with no new focal consolidation. Review of Systems Constitutional: Reports fatigue, Reports weakness, Denies chills, Denies fever Ears, nose, mouth and throat: Denies dental pain, Denies dysphagia, Denies headache, Denies nasal congestion, Denies nasal discharge, Denies sore throat, Denies vertigo Cardiovascular: Reports palpitations, Reports shortness of breath, Denies chest pain Respiratory: Reports cough, Reports cough with sputum, Reports dyspnea, Reports home oxygen, Reports wheezing, Denies excessive sputum, Denies hemoptysis Gastrointestinal: Denies abdominal pain, Denies diarrhea, Denies loss of appetite, Denies nausea, Denies vomiting Genitourinary: Denies dysuria, Denies hematuria, Denies urgency, Denies urinary frequency Musculoskeletal: Reports muscle weakness, Denies frequent falls, Denies gait dysfunction, Denies myalgias Integumentary: Denies pruritus, Denies rash, Denies wounds Neurological: Denies change in mentation, Denies change in speech, Denies numbness, Denies weakness Psychiatric: Denies anxiety, Denies depression Endocrine: Denies fatigue, Denies weight change Objective - Vital Signs Vital signs: Vital Signs Temp 98 F 02/13/19 07:21 Pulse 92 02/13/19 09:09 Resp 18 02/13/19 07:21 BP 132/61 02/13/19 07:21 Pulse Ox 94 L 02/13/19 07:21 Intake & Output 02/12/19 02/13/19 02/13/19 18:59 06:59 18:59 Other: Voiding Method Toilet Toilet # Voids 1 1 - Exam General appearance: no acute distress, thin, patient resting in bed - EENT Eyes: anicteric sclerae, EOMI, PERRLA, no ptosis, no scleral icterus, normal appearance ENT: hearing grossly normal, normal oropharynx, no thrush Ears: bilateral: normal - Neck Neck: no lymphadenopathy, normal ROM, no rigidity, no stridor Carotids: bilateral: upstroke delayed Thyroid: bilateral: normal size - Respiratory Respiratory: bilateral: diminished, wheezing, prolonged expiration, nonproductive cough negative: dullness, rales - Cardiovascular Rhythm: regular Heart sounds: normal: S1, S2 Abnormal Heart Sounds: systolic murmur, no S3 Gallop, no S4 Gallop, no click - Gastrointestinal General gastrointestinal: normal bowel sounds, soft, no splenomegaly, no tenderness, no umbilical hernia, no ventral hernia - Integumentary Integumentary: normal, normal turgor - Neurologic Neurologic: CNII-XII intact - Musculoskeletal Musculoskeletal: strength equal bilaterally - Psychiatric Psychiatric: A&O x's 3, appropriate affect, intact judgment & insight - Labs CBC & Chem 7: 02/11/19 08:10 02/11/19 08:10 Labs: Abnormal Lab Results - Last 24 Hours (Table) 02/12/19 02/12/19 02/12/19 Range/Units 11:50 16:49 19:57 POC Glucose (mg/dL) 128 H 179 H 253 H (75-99) mg/dL 02/13/19 Range/Units 06:39 POC Glucose (mg/dL) 133 H (75-99) mg/dL Assessment and Plan Plan: 1. Acute COPD exacerbation. Continue DuoNeb treatments every 6 hours and every 4 hours as needed, Pulmicort 1 mg twice daily, Solu-Medrol continued at 40 mg every 8 hours, doxycycline 100 mg twice daily. Consult with Dr. Luis isaac. 2. History of rectal vaginal fistula, repaired with colon resection and colostomy placement done at [facility], [facility]. 3. History of coronary artery disease. Stable at this time. 4. Hypertension and hypertensive cardiovascular disease. Continue losartan 100 mg in the morning and 50 mg in the evening . 5. Hyperlipidemia. Low-cholesterol diet. 6. GERD. Continue current Protonix 40 mg orally once every day. 7. Osteoarthritis. Continue meloxicam 15 mg orally once every day. 8. Tobacco use and dependence. Patient recently quit smoking. 9. Osteoporosis. Stable. 10. DVT prophylaxis. Heparin subcutaneously every 12 hours. 11. GI prophylaxis. On Protonix 40 mg orally once every day. Full code. Discharge plan: Return home in the next 24-48 hours Impression and plan of care have been directed as dictated by the signing physician. Keren Daniels nurse practitioner acting as scribe for signing physician.
[2019-02-13 16:39] LABS: Glucose,Whole Blood 234 mg/dL (75-99)
[2019-02-13 19:37] VITALS: RESP 18
[2019-02-13 20:16] LABS: Glucose,Whole Blood 105 mg/dL (75-99)
[2019-02-13] MEDS: ALPRAZolam 1 MG TAB PO PRN (21:03)
[2019-02-14 06:43] LABS: Glucose,Whole Blood 131 mg/dL (75-99)
[2019-02-14] MEDS: INSULIN ASPART (NovoLOG) 100 UNIT/ML VIAL SQ SCH ×2 (06:52→12:15)
[2019-02-14] MEDS: PANTOPRAZOLE 40 MG TABLET PO SCH (06:52)
[2019-02-14] MEDS: POLYETHYLENE GLYCOL 3350 17 GM POWD.PACK PO PRN (07:43)
[2019-02-14] MEDS: IPRATROPIUM-ALBUTEROL 3 ML NEB INHALATION SCH ×2 (07:44→11:20)
[2019-02-14] MEDS: BUDESONIDE 1 MG/2 ML NEBU INHALATION SCH (07:53)
[2019-02-14 08:48] VITALS: BP 146/69; TEMP 98.1
[2019-02-14] MEDS: BENZONATATE 100 MG CAP PO SCH (08:52)
[2019-02-14] MEDS: methylPREDNISolone SOD SUCCI 40 MG/ML 1 ML VIAL IV SCH (08:52)
[2019-02-14] MEDS: DOXYCYCLINE 100 MG CAP PO SCH (08:53)
[2019-02-14] MEDS: MELOXICAM 7.5 MG TAB PO SCH (08:53)
[2019-02-14] MEDS: LOSARTAN 50 MG TAB PO SCH (08:53)
[2019-02-14] MEDS: GABAPENTIN 100 MG CAP PO SCH (08:53)
[2019-02-14] MEDS: DICYCLOMINE 10 MG CAP PO SCH (08:53)
[2019-02-14] MEDS: amLODIPine 5 MG TAB PO SCH (09:37)
[2019-02-14] MEDS: guaiFENesin SYRUP 100MG/5ML 200 MG/10 ML CUP PO PRN (09:38)
[2019-02-14 11:28] LABS: Glucose,Whole Blood 124 mg/dL (75-99)
[2019-02-14 11:34] VITALS: PULSE 97
--- NOTE | 2019-02-14 13:02 | P.DS ---
Providers Date of admission: 02/13/19 10:52 Attending physician: Inés Chapman MD Consults: 02/11/19 10:06 Consult Physician Routine Consulting Provider: Kj Bain Consult Reason/Comments: dyspnea Do you want consulting provider notified?: Yes Primary care physician[facility] Course: This is a 78-year-old female patient of Dr. Alejandro with a previous medical history significant for coronary artery disease status post left heart catheterization with the left heart catheterization that was done in September 2014 that showed ostial lesion of the diagonal branch and mild disease of the RCA, normal ejection fraction, hypertension and hypertensive cardiovascular disease with left ventricular hypertrophy, chronic tobacco use and dependence with chronic obstructive pulmonary disease, chronic hypoxic respiratory failure on home O2, GERD, rectovaginal fistula repair, colon resection and colostomy placement done at [facility]. She was most recently admitted in April for chest pain secondary to GERD. Patient complains of shortness of breath that has been going on for the past last week and became very severe yesterday. She states I thought it was having a heart attack. She states she can walk and her arms were weak. She complains of frequent palpitations. She is using her home oxygen as needed. She states that she has quit smoking since she left the hospital on January 26. She denies any problems with her colostomy. No nausea or vomiting. She has had sputum production for the past 2 weeks ever since she was discharged from the hospital. Patient was admitted from January 22 through the for COPD exacerbation. Patient came into [facility] emergency center with the above concerns. She was afebrile and hemodynamically stable. EKG was a sinus rhythm with no acute ST changes. White count was 11.2, hemoglobin 13.6, BUN 18 and creatinine 0.67, blood sugar 99, electrolytes were within normal limits as well as kidney function. Total bilirubin 1.5, liver function tests within normal limits, troponin 0.014. Chest x-ray revealed no acute cardio pulmonary process. Hilar prominence most likely related to pulmonary artery hypertension. Known right-sided pulmonary nodule for which [address] was recommended in 2018. Patient was started on DuoNeb treatments, Solu-Medrol IV, and placed in the observation unit and consult with pulmonary medicine requested. 02/12: Patient states that her breathing is improved today. Repeat troponins have come back negative. She has been afebrile, pulse ox 95% on 2 L. We will plan to decrease the Medrol 40 mg every 8 and start prednisone in the morning with anticipated discharge by tomorrow. Patient is concerned that she had endoscopy scheduled with Dr. Burgos as an outpatient for tomorrow. Patient's nurse will contact endoscopy to cancel. 02/13: Patient continues to have dyspnea and wheezing. She has a cough nonproductive and cough medicine is not helping she would like Cepacol which is been added. Patient has been afebrile. No change in Solu-Medrol today. Repeat chest x-ray ordered which is unchanged compared to February 11. Underlying COPD and probable pulmonary artery hypertension with no new focal consolidation. 02/14/2019: Patient states that she is doing better. She continues to have a nonproductive cough. Patient has been afebrile. Patient states that she does not have albuterol at home due to the cost. Discussed with patient the importance of getting albuterol to use as needed. Discharge diagnosis: 1. Acute COPD exacerbation. 2. History of rectal vaginal fistula, repaired with colon resection and colostomy placement 3. History of coronary artery disease. 4. Hypertension and hypertensive cardiovascular disease. 5. Hyperlipidemia. 6. GERD. 7. Osteoarthritis. 8. Tobacco use and dependence. 9. Osteoporosis. Discharge disposition: Home with self-care Impression and plan of care have been directed as dictated by the signing physician. Evelia Caro nurse practitioner acting as scribe for signing physician. Patient Condition at Discharge: Good Plan - Discharge Summary Discharge Rx Participant: No New Discharge Prescriptions: New predniSONE 20 mg PO DAILY #18 tab Albuterol Sulfate [Proair Hfa] 2 puff INHALATION Q6HR PRN #1 inhaler PRN Reason: Sob Continue Gabapentin [Neurontin] 100 mg PO BID ALPRAZolam [Xanax] 1 mg PO TID PRN PRN Reason: Anxiety Prochlorperazine [Compazine] 10 mg PO TID PRN #30 tab PRN Reason: Nausea Omeprazole [PriLOSEC] 20 mg PO DAILY Dicyclomine [Bentyl] 10 mg PO BID Tiotropium [place] [Spiriva] 1 cap INHALATION RT-DAILY Albuterol Nebulized [Ventolin Nebulized] 2.5 mg INHALATION RT-TID Losartan Potassium 50 mg PO HS Losartan Potassium 100 mg PO QAM Celecoxib [CeleBREX] 200 mg PO DAILY amLODIPine [Norvasc] 5 mg PO DAILY #30 tab Polyethylene Glycol 3350 [Miralax] 17 gm PO DAILY PRN #30 packet PRN Reason: Constipation Budesonide [Pulmicort] 0.5 mg INHALATION RT-BID Discharge Medication List Gabapentin [Neurontin] 100 mg PO BID 09/17/14 [History] ALPRAZolam [Xanax] 1 mg PO TID PRN 06/16/15 [History] Prochlorperazine [Compazine] 10 mg PO TID PRN #30 tab 06/18/15 [Rx] Omeprazole [PriLOSEC] 20 mg PO DAILY 03/06/16 [History] Dicyclomine [Bentyl] 10 mg PO BID 11/12/16 [History] Tiotropium [place] [Spiriva] 1 cap INHALATION RT-DAILY 11/12/16 [History] Albuterol Nebulized [Ventolin Nebulized] 2.5 mg INHALATION RT-TID 03/10/18 [History] Celecoxib [CeleBREX] 200 mg PO DAILY 01/22/19 [History] Losartan Potassium 50 mg PO HS 01/22/19 [History] Losartan Potassium 100 mg PO QAM 01/22/19 [History] Polyethylene Glycol 3350 [Miralax] 17 gm PO DAILY PRN #30 packet 01/26/19 [Rx] amLODIPine [Norvasc] 5 mg PO DAILY #30 tab 01/26/19 [Rx] Budesonide [Pulmicort] 0.5 mg INHALATION RT-BID 02/11/19 [History] Albuterol Sulfate [Proair Hfa] 2 puff INHALATION Q6HR PRN #1 inhaler 02/14/19 [Rx] predniSONE 20 mg PO DAILY #18 tab 02/14/19 [Rx] Follow up Appointment(s)/Referral(s): Kj Bain DO [Doctor of Osteopathic Medicine] - 1 Week Alvin Alejandro DO [Primary Care Provider] - 1-2 days [facility] Visiting Nurse, [NON-STAFF] - 1-2 Days Patient Instructions/Handouts: COPD (Chronic Obstructive Pulmonary Disease) (DC)
--- NOTE | 2019-02-14 13:35 | PN ---
PROGRESS NOTE DATE OF SERVICE: February 14, 2019 This is a 78-year-old female seen in consultation back on February 11. She was also seen on the and the . The patient is doing relatively well. Her breathing is better. The patient states that she is still short of breath. She still has a bit of a cough. Not producing much or any phlegm. The patient denies any fever or chills. She has chest congestion. She also complained initially of chest pain, but that has dissipated and not caused her any problems since she has been here. PHYSICAL EXAMINATION: VITAL SIGNS: Current vital signs are reviewed. Her temperature is 98.1. Heart rate 88, respiratory rate 18, blood pressure 146/69, mean 94. 2 L saturation 95%. GENERAL: She appears in no acute distress. HEENT examination is grossly unremarkable. Mucous membranes are moist. No oral lesions. Nasal O2 noted. NECK: Supple. Full range of motion. No adenopathy or thyromegaly. Neck veins are flat. CARDIOVASCULAR examination reveals regular rhythm and rate. S1, S2 normal. No S3, S4, or murmur. LUNGS: Some very mild expiratory wheezes. No rhonchi or crackles. Breath sounds are diminished throughout. Slight prolongation on forced maneuver. ABDOMEN: Soft. Bowel sounds are heard. EXTREMITIES are intact. No cyanosis, clubbing, or edema. SKIN: Without rash. NEUROLOGIC: Examination is brief but nonfocal. Microbiology is negative or pending. A chest x-ray from February 13 shows it to be unchanged. There is findings of COPD and possible pulmonary hypertension. No new consolidations. The pulmonary nodule seen in the right lung will be followed up as an outpatient. Medications are reviewed. ASSESSMENT: 1. Chronic obstructive pulmonary disease exacerbation complicated by mild purulent tracheobronchitis, without evidence of pneumonia. 2. Solitary pulmonary nodule, right lung, which will be followed up as an outpatient. 3. History of breast cancer, status post left mastectomy. 4. Coronary artery disease. 5. Gastroesophageal reflux disease. 6. Hypertension. 7. Degenerative joint disease. 8. History of pneumonia. 9. Previous history of colon resection with colostomy. 10.Repair of rectovaginal fistula. 11.Diverticular disease. 12.Peptic ulcer disease. 13.Migraine cephalgia. 14.Frequent urinary tract infection. 15.Ongoing tobacco use and nicotine addiction despite counseling. PLAN: From my perspective, the patient could be considered for discharge. We will leave that up to the primary service. She should see me this week in the office. She can call the office on Saturday at 8:30 am, and get in to see me this week. Saturday might be ideal because she sees Dr. Alejandro on that day. She could be sent home with a short course of antibiotics and a prednisone burst and taper beginning with 40 or 50 mg a day, decreasing by 10 mg every 4th day. Additional recommendations and suggestions are forthcoming. Prognosis is guarded. MMODL / IJN: [id number] /
== END 2019-02-14 13:05 | disposition home or self-care (01) | DRG 191 ==
LOC: EC 07:48 → 1SOBS 10:06 → OBSVTOIN 02-13 10:52
PROVIDERS: ADMIT Internal Medicine; ATTEND Internal Medicine
DX: J44.0 Chronic obstructive pulmonary disease with (acute) lower respiratory infection (principal); J96.11 Chronic respiratory failure with hypoxia; J44.1 Chronic obstructive pulmonary disease with (acute) exacerbation; E78.5 Hyperlipidemia, unspecified; F17.200 Nicotine dependence, unspecified, uncomplicated; F40.240 Claustrophobia; G43.909 Migraine, unspecified, not intractable, without status migrainosus; I11.9 Hypertensive heart disease without heart failure; I25.10 Atherosclerotic heart disease of native coronary artery without angina pectoris; I25.2 Old myocardial infarction; I27.21 Secondary pulmonary arterial hypertension; K21.9 Gastro-esophageal reflux disease without esophagitis; K27.9 Peptic ulcer, site unspecified, unspecified as acute or chronic, without hemorrhage or perforation; K57.90 Diverticulosis of intestine, part unspecified, without perforation or abscess without bleeding; K58.9 Irritable bowel syndrome, unspecified; M19.90 Unspecified osteoarthritis, unspecified site; M81.0 Age-related osteoporosis without current pathological fracture; Z79.1 Long term (current) use of non-steroidal anti-inflammatories (NSAID); Z79.51 Long term (current) use of inhaled steroids; Z79.899 Other long term (current) drug therapy; Z80.9 Family history of malignant neoplasm, unspecified; Z82.3 Family history of stroke; Z82.49 Family history of ischemic heart disease and other diseases of the circulatory system; Z82.5 Family history of asthma and other chronic lower respiratory diseases; Z85.3 Personal history of malignant neoplasm of breast; Z87.01 Personal history of pneumonia (recurrent); Z87.11 Personal history of peptic ulcer disease; Z87.440 Personal history of urinary (tract) infections; Z90.12 Acquired absence of left breast and nipple; Z90.49 Acquired absence of other specified parts of digestive tract; Z90.710 Acquired absence of both cervix and uterus; Z93.3 Colostomy status; Z98.42 Cataract extraction status, left eye; Z98.41 Cataract extraction status, right eye; Z96.1 Presence of intraocular lens; Z99.81 Dependence on supplemental oxygen; Z88.5 Allergy status to narcotic agent; Z88.6 Allergy status to analgesic agent; Z91.041 Radiographic dye allergy status; R91.1 Solitary pulmonary nodule; J20.9 Acute bronchitis, unspecified
CPT/HCPCS: 36415; 71046; 80053; 84484; 85025; 85610; 85730; 94640; 94760; 99285

== ENCOUNTER 2019-02-28 06:55 | Emergency (ER) | payer MEDICARE ==
[2019-02-28] MEDS ORDERED: SODIUM CHLORIDE 0.9% 1,000 ML IV STA ×2 (07:05)
--- NOTE | 2019-02-28 07:09 | ED ---
General Adult HPI <Kj Esquivel - Last Filed: 02/28/19 09:50> - General Source: patient, EMS, RN notes reviewed, old records reviewed Mode of arrival: EMS Limitations: no limitations <Sherron Meeks - Last Filed: 02/28/19 10:05> - General Chief complaint: Shortness of Breath Stated complaint: SOB Time Seen by Provider: 02/28/19 06:56 - History of Present Illness Initial comments: 78-year-old female presents today for evaluation for concern for difficulty breathing. Patient reports that she woke up at 5:30 in the morning, he complained of difficulty breathing and wheezing. She herself 3 albuterol treatments and called EMS. Patient reports that after EMS arrived they placed on a nonrebreather and she is breathing more comfortably. Patient believes that she gets tangled in her oxygen cord at home, and is not getting for oxygen delivery when she is at home. Patient states that she's had no fevers or chills. She is not on any oral steroids at this time. She denies any chest pain,. She reports she did have some chest pain which is having difficulty breathing earlier today. (Sherron Meeks) - Related Data Home Medications Medication Instructions Recorded Confirmed Gabapentin [Neurontin] 100 mg PO BID 09/17/14 02/28/19 ALPRAZolam [Xanax] 1 mg PO TID PRN 06/16/15 02/28/19 Omeprazole [PriLOSEC] 20 mg PO DAILY 03/06/16 02/28/19 Dicyclomine [Bentyl] 10 mg PO BID 11/12/16 02/28/19 Tiotropium [place] [Spiriva] 1 cap INHALATION RT-DAILY 11/12/16 02/28/19 Albuterol Nebulized [Ventolin 2.5 mg INHALATION RT-TID 03/10/18 02/28/19 Nebulized] Celecoxib [CeleBREX] 200 mg PO DAILY 01/22/19 02/28/19 Losartan Potassium 50 mg PO HS 01/22/19 02/28/19 Losartan Potassium 100 mg PO QAM 01/22/19 02/28/19 Budesonide [Pulmicort] 0.5 mg INHALATION RT-BID 02/11/19 02/28/19 Previous Rx's Medication Instructions Recorded Prochlorperazine [Compazine] 10 mg PO TID PRN #30 tab 06/18/15 Polyethylene Glycol 3350 [Miralax] 17 gm PO DAILY PRN #30 packet 01/26/19 amLODIPine [Norvasc] 5 mg PO DAILY #30 tab 01/26/19 Albuterol Sulfate [Proair Hfa] 2 puff INHALATION Q6HR PRN #1 02/14/19 inhaler predniSONE 20 mg PO DAILY #18 tab 02/14/19 Allergies Allergy/AdvReac Type Severity Reaction Status Date / Time aspirin AdvReac Nausea Verified 01/22/19 15:05 codeine AdvReac Nausea Verified 01/22/19 15:05 Iodinated Contrast Media AdvReac Vomiting Verified 01/22/19 15:05 [Iodinated Contrast Media - IV Dye] Review of Systems ROS Other: All systems not noted in ROS Statement are negative. <Kj Esquivel - Last Filed: 02/28/19 09:50> ROS Other: All systems not noted in ROS Statement are negative. <Sherron Meeks - Last Filed: 02/28/19 10:05> ROS Statement: Those systems with pertinent positive or pertinent negative responses have been documented in the HPI. Past Medical History Past Medical History: Asthma, Coronary Artery Disease (CAD), Cancer, COPD, GERD/Reflux, Hypertension, Osteoarthritis (OA), Pneumonia, Respiratory Disorder Additional Past Medical History / Comment(s): Pt recently admitted to [facility] on 01/22/19 with acute respiratory distress combination exacerbation COPD/acute tracheal bronchitis and inhaled bleach/chemical pneumonitis. Other hx: L breast cancer with left mastectomy, diverticulosis/diverticular complications and rectovaginal fistula status post fistula repair, colon resection and colostomy placement at [facility], irritable bowel syndrome, peptic ulcer disease, generalized arthritis-multiple joints, leg cramps, frequent UTIs, migraines in the past, bronchitis, allergic rhinitis. History of Any Multi-Drug Resistant Organisms: None Reported Past Surgical History: Adenoidectomy, Appendectomy, Bladder Surgery, Cholecystectomy, Heart Catheterization, Hysterectomy, Orthopedic Surgery, Tonsillectomy Additional Past Surgical History / Comment(s): 09/21/14 cardiac cath with disease-treated medically, cataracts removed bilaterally with lens implants, rt rotator cuff, juan m carpal tunnel, bladder suspension, rectocele repair, hemorrhoidectomy, colonoscopies, camera endoscopy, EGD, left masectomy , vaginal rectal fistula repair, bowel resection and colostomy placement Past Anesthesia/Blood Transfusion Reactions: No Reported Reaction Additional Past Anesthesia/Blood Transfusion Reaction / Comment(s): Pt is claustrophobic. Past Psychological History: Anxiety Smoking Status: Former smoker - Past Family History Father Family Medical History: COPD Additional Family Medical History / Comment(s): Father is . Mother Family Medical History: CVA/TIA, Hypertension Additional Family Medical History / Comment(s): at age 91 Brother(s) Family Medical History: Cancer, Myocardial Infarction ([place]) Daughter(s) Family Medical History: No Reported History Son(s) Family Medical History: No Reported History Sister(s) Family Medical History: Cancer Additional Family Medical History / Comment(s): Sister had metastatic brease cancer and is . <Sherron Meeks - Last Filed: 02/28/19 10:05> General Exam Limitations: no limitations General appearance: alert, in no apparent distress Head exam: Present: atraumatic, normocephalic, normal inspection Eye exam: Present: normal appearance, PERRL, EOMI. Absent: scleral icterus, conjunctival injection, periorbital swelling ENT exam: Present: normal exam, mucous membranes moist Neck exam: Present: normal inspection. Absent: tenderness, meningismus, lymphadenopathy Respiratory exam: Present: normal lung sounds bilaterally, other (masectomy ). Absent: respiratory distress, wheezes, rales, rhonchi, stridor Cardiovascular Exam: Present: regular rate, normal rhythm, normal heart sounds. Absent: systolic murmur, diastolic murmur, rubs, gallop, clicks GI/Abdominal exam: Present: soft, normal bowel sounds, other (Patient has evidence of colostomy bag.). Absent: distended, guarding, rebound, rigid Extremities exam: Present: normal inspection, full ROM, normal capillary refill. Absent: tenderness, pedal edema, joint swelling, calf tenderness Back exam: Present: normal inspection Neurological exam: Present: alert, oriented X3, CN II-XII intact <Sherron Meeks - Last Filed: 02/28/19 10:05> - General Exam Comments Initial Comments: Asians a very thin 78-year-old female. (Sherron Meeks) Course <Kj Esquivel - Last Filed: 02/28/19 09:50> Vital Signs 02/28/19 02/28/19 02/28/19 06:56 07:57 09:48 Temperature 98.4 F 99.9 F H Pulse Rate 101 H 92 87 Respiratory 22 20 16 Rate Blood Pressure 146/61 126/61 126/61 O2 Sat by Pulse 100 100 98 Oximetry - Reevaluation(s) Reevaluation #1: 02/28/19 09:50 PA supervision: I personally saw the patient and did a [id number] evaluation she presents with complaints of shortness of breath she does have a history of COPD she is resolved at this time. Patient was to go home she and family are in agreement with this and do agree with the assessment and plan. (Kj Esquivel) EKG Findings - EKG Comments: EKG Findings:: EKG shows sinus tachycardia possibly. Infarct. T wave abnormality consider anterolateral ischemia. Abnormal EKG noted. Ventricular rate of 103 bpm. Intervals 118 ms. QS duration 70 ms. QT QTc is 316/413 ms. <Sherron Meeks - Last Filed: 02/28/19 10:05> Medical Decision Making - Lab Data Result diagrams: 02/28/19 07:51 02/28/19 07:51 <Kj Esquivel - Last Filed: 02/28/19 09:50> - Lab Data Result diagrams: 02/28/19 07:51 02/28/19 07:51 <Sherron Meeks - Last Filed: 02/28/19 10:05> - Lab Data Lab Results 02/28/19 02/28/19 02/28/19 Range/Units 07:51 07:51 07:51 WBC 12.6 H (3.8-10.6) k/uL RBC 4.30 (3.80-5.40) m/uL Hgb 12.9 (11.4-16.0) gm/dL Hct 39.4 (34.0-46.0) % MCV 91.7 (80.0-100.0) fL MCH 29.9 (25.0-35.0) pg MCHC 32.6 (31.0-37.0) g/dL RDW 14.1 (11.5-15.5) % Plt Count 348 (150-450) k/uL Neutrophils % 81 % Lymphocytes % 8 % Monocytes % 7 % Eosinophils % 0 % Basophils % 1 % Neutrophils # 10.1 H (1.3-7.7) k/uL Lymphocytes # 1.0 (1.0-4.8) k/uL Monocytes # 0.9 (0-1.0) k/uL Eosinophils # 0.0 (0-0.7) k/uL Basophils # 0.1 (0-0.2) k/uL PT 9.4 (9.0-12.0) sec INR 0.8 (<1.2) APTT 25.5 (22.0-30.0) sec Sodium 140 (137-145) mmol/L Potassium 3.7 (3.5-5.1) mmol/L Chloride 105 (98-107) mmol/L Carbon Dioxide 31 H (22-30) mmol/L Anion Gap 4 mmol/L BUN 16 (7-17) mg/dL Creatinine 0.59 (0.52-1.04) mg/dL Est GFR (CKD-EPI)AfAm >90 (>60 ml/min/1.73 sqM) Est GFR (CKD-EPI)NonAf 89 (>60 ml/min/1.73 sqM) Glucose 82 (74-99) mg/dL Calcium 9.4 (8.4-10.2) mg/dL Magnesium 2.0 (1.6-2.3) mg/dL Total Bilirubin 1.4 H (0.2-1.3) mg/dL AST 22 (14-36) U/L ALT 26 (9-52) U/L Alkaline Phosphatase 65 (38-126) U/L Troponin I (0.000-0.034) ng/mL Total Protein 6.1 L (6.3-8.2) g/dL Albumin 3.5 (3.5-5.0) g/dL 02/28/19 Range/Units 07:51 WBC (3.8-10.6) k/uL RBC (3.80-5.40) m/uL Hgb (11.4-16.0) gm/dL Hct (34.0-46.0) % MCV (80.0-100.0) fL MCH (25.0-35.0) pg MCHC (31.0-37.0) g/dL RDW (11.5-15.5) % Plt Count (150-450) k/uL Neutrophils % % Lymphocytes % % Monocytes % % Eosinophils % % Basophils % % Neutrophils # (1.3-7.7) k/uL Lymphocytes # (1.0-4.8) k/uL Monocytes # (0-1.0) k/uL Eosinophils # (0-0.7) k/uL Basophils # (0-0.2) k/uL PT (9.0-12.0) sec INR (<1.2) APTT (22.0-30.0) sec Sodium (137-145) mmol/L Potassium (3.5-5.1) mmol/L Chloride (98-107) mmol/L Carbon Dioxide (22-30) mmol/L Anion Gap mmol/L BUN (7-17) mg/dL Creatinine (0.52-1.04) mg/dL Est GFR (CKD-EPI)AfAm (>60 ml/min/1.73 sqM) Est GFR (CKD-EPI)NonAf (>60 ml/min/1.73 sqM) Glucose (74-99) mg/dL Calcium (8.4-10.2) mg/dL Magnesium (1.6-2.3) mg/dL Total Bilirubin (0.2-1.3) mg/dL AST (14-36) U/L ALT (9-52) U/L Alkaline Phosphatase (38-126) U/L Troponin I 0.023 (0.000-0.034) ng/mL Total Protein (6.3-8.2) g/dL Albumin (3.5-5.0) g/dL Disposition <Kj Esquivel - Last Filed: 02/28/19 09:50> Is patient prescribed a controlled substance at d/c from ED?: No Time of Disposition: 10:05 <Sherron Meeks - Last Filed: 02/28/19 10:05> Clinical Impression: COPD (chronic obstructive pulmonary disease) Disposition: HOME SELF-CARE Condition: Good Instructions (If sedation given, give patient instructions): COPD (Chronic Obstructive Pulmonary Disease) (ED) Additional Instructions: Patient advised to follow-up promptly with Dr.BAsha out patiently or your [facility] physician. Patient should use the shorter cord for your at-home oxygen. Return to the emergency department if any alarming signs or symptoms occur. Referrals: Alvin Alejandro DO [Primary Care Provider] - 1-2 days
[2019-02-28 08:01] VITALS: TEMP 99.9
[2019-02-28 08:17] LABS: Basophils # (A) 0.1 k/uL (0-0.2); Basophils % (A) 1 %; Eosinophils % (A) 0 %; HCT 39.4 % (34.0-46.0); HGB 12.9 gm/dL (11.4-16.0); Lymphocytes % (A) 8 %; MCH 29.9 pg (25.0-35.0); MCHC 32.6 g/dL (31.0-37.0); MCV 91.7 fL (80.0-100.0); Monocytes # (A) 0.9 k/uL (0-1.0); Monocytes % (A) 7 %; Neutrophils # (A) 10.1 k/uL (1.3-7.7); Neutrophils % (A) 81 %; Platelet Count 348 k/uL (150-450); RDW 14.1 % (11.5-15.5); WBC 12.6 k/uL (3.8-10.6)
--- NOTE | 2019-02-28 08:19 | XR ---
EXAMINATION TYPE: XR chest 2V DATE OF EXAM: 02/28/2019 HISTORY: difficulty breathing. REFERENCE: Previous study dated 02/13/2019. FINDINGS: The lungs are overinflated. The lungs are clear. There is chronic blunting of the left CP a ngle. The heart is not enlarged. IMPRESSION: COPD. CHRONIC BLUNTING OF A CP ANGLE POSSIBLE EXCLUDE A SMALL EFFUSION. CT SCAN OF THE CHEST IS SUGGESTED ON A NONEMERGENT BASIS FOR FOLLO W-UP OF A KNOWN RIGHT-SIDED PULMONARY NODULE.
[2019-02-28 08:26] LABS: INR 0.8 (<1.2); Partial Thromboplastin Time 25.5 sec (22.0-30.0); Prothrombin Time 9.4 sec (9.0-12.0)
[2019-02-28 08:32] LABS: ALT 26 U/L (9-52); AST 22 U/L (14-36); African American GFR (CKD) >90 (>60 ml/min/1.73 sqM); Albumin 3.5 g/dL (3.5-5.0); Alkaline Phosphatase 65 U/L (38-126); Anion Gap 4 mmol/L; Blood Urea Nitrogen 16 mg/dL (7-17); Calcium 9.4 mg/dL (8.4-10.2); Carbon Dioxide 31 mmol/L (22-30); Chloride 105 mmol/L (98-107); Glucose 82 mg/dL (74-99); Potassium 3.7 mmol/L (3.5-5.1); Sodium 140 mmol/L (137-145); Total Bilirubin 1.4 mg/dL (0.2-1.3); Total Protein 6.1 g/dL (6.3-8.2)
[2019-02-28] MEDS ORDERED: IPRATROPIUM-ALBUTEROL 3 ML NEB INHALATION STA (09:03)
[2019-02-28 09:52] VITALS: RESP 16
[2019-02-28 10:20] VITALS: BP 131/76; PULSE 76
== END 2019-02-28 10:21 | disposition home or self-care (01) ==
LOC: EC 06:55
DX: J44.9 Chronic obstructive pulmonary disease, unspecified (principal); I25.10 Atherosclerotic heart disease of native coronary artery without angina pectoris; I10 Essential (primary) hypertension; M19.90 Unspecified osteoarthritis, unspecified site; F41.9 Anxiety disorder, unspecified; K21.9 Gastro-esophageal reflux disease without esophagitis; K58.9 Irritable bowel syndrome, unspecified; Z79.1 Long term (current) use of non-steroidal anti-inflammatories (NSAID); Z79.51 Long term (current) use of inhaled steroids; Z79.899 Other long term (current) drug therapy; Z88.6 Allergy status to analgesic agent; Z88.5 Allergy status to narcotic agent; Z91.041 Radiographic dye allergy status; Z85.3 Personal history of malignant neoplasm of breast; Z87.11 Personal history of peptic ulcer disease; Z90.12 Acquired absence of left breast and nipple; Z93.3 Colostomy status; Z95.5 Presence of coronary angioplasty implant and graft; Z90.49 Acquired absence of other specified parts of digestive tract; Z87.891 Personal history of nicotine dependence
CPT/HCPCS: 36415; 71046; 80053; 83735; 84484; 85025; 85610; 85730; 87040; 93005; 96360; 96361; 99285

== ENCOUNTER → 2019-03-10 | Outpatient (CLI) | payer MEDICARE ==
--- NOTE | 2019-03-10 14:40 | CT ---
EXAMINATION TYPE: CT chest wo/w con DATE OF EXAM: 03/10/2019 COMPARISON: 03/10/2018 and 06/16/2015 HISTORY: 78-year-old female follow-up Pulmonary nodules TECHNIQUE: Contiguous axial scanning of the chest before and after the administration of 95 mL of Iso oumar 300. Coronal/sagittal reconstructions performed. Patient was premedicated for contrast administr ation. CT DLP: 551mGycm. Automatic exposure control utilized for a dose reduction. FINDINGS: Heart normal size without pericardial effusion. Minimal coronary artery calcifications are present. Aorta normal caliber with mild atherosclerotic arch calcifications and there is a direct takeoff of t he left vertebral artery directly from the aortic arch. Stable 1.4 cm hypodense right thyroid lobe nodule. Stable 1.3 cm right hilar lymph node. Stability co mpatible with a benign etiology. No thoracic lymphadenopathy otherwise seen by CT size criteria. Patient is status post left mastectomy. Advanced centrilobular emphysema with biapical pleural-parenchymal scarring. New strandy and irregular subpleural densities at the left base suggest areas of atelectasis. Some linear scarring along the inferior lingula. No consolidation or pleural effusion. No suspicious pulmonary nodule or mass. Visualized upper abdomen shows a few scattered hepatic cysts measuring up to 1.2 cm stable back to 20 16. Bones: Mild degenerative disc disease mid thoracic spine. A 2.1 cm intramuscular lipoma of the right infraspinatus is unchanged. IMPRESSION: 1. Advanced centrilobular emphysema. 2. Scattered areas of scarring or atelectasis with some new areas at the left base. No suspicious pul monary nodule or mass. The 6 mm density described on 03/10/2018 in the right upper lobe is less defin ed on the current exam with an appearance similar back to 2016 compatible with scarring. 3. Status post left mastectomy.
== END | disposition home or self-care (01) ==
LOC: RADCTMAIN 13:38
PROVIDERS: ATTEND Family Medicine
DX: J43.2 Centrilobular emphysema (principal); Z90.12 Acquired absence of left breast and nipple
CPT/HCPCS: 71270; Q9967

== ENCOUNTER 2019-04-24 08:02 | Day surgery (SDC) | payer MEDICARE ==
[2019-04-22 08:53] VITALS: BMI 18.7
[~2019-04-24 08:02] MED LIST changes: -DEXAMETHASONE SOD PHOSPHATE 10 MG/ML 1 ML VIAL IV ONE; -HEPARIN SODIUM,PORCINE 5,000 UNIT/ML 1 ML VIAL SQ ONE; -HYDROmorphone 1 MG/ML 1 ML SYRINGE IVP PRN; -MIDAZOLAM 2 MG/2 ML VIAL IV PRN; -ONDANSETRON 4 MG/2 ML VIAL IVP ONE; -Pre Op ABX Message 1 EACH MISC MISCELLANE ONE
[2019-04-24 08:22] VITALS: TEMP 97.7
[2019-04-24] MEDS ORDERED: LIDOCAINE 1% 20 ML VIAL (10MG/ML) FOR IV START INTRADERMA ONE (08:31)
[2019-04-24] MEDS ORDERED: PROPOFOL 10 MG/ML 20 ML VIAL IV ONE (09:13)
[2019-04-24] MEDS ORDERED: LIDOCAINE 1% INJ 10MG/ML (20 ML MDV) ONE (09:13)
--- NOTE | 2019-04-24 09:41 | P.PCN ---
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 EGD with biopsy 2. Colonoscopy ANESTHESIA: [facility] SURGEON: Angel Burgos M.D. SPECIMENS: Antrum ENDOSCOPIC PROCEDURE: The patient was on the endoscopy table in the left decubitus position. The Olympus gastroscope was inserted into the oropharynx and passed under direct visualization to the region of the third portion of the duodenum. From that point the scope was slowly withdrawn inspecting all surfaces carefully. There were no neoplastic inflammatory or polypoid lesions throughout the duodenum. The pylorus was widely patent. The stomach was carefully inspected. There was gastritis present with a few small erosions. The largest erosions actually present at the pylorus which may have been contributing to her discomfort. A biopsy of the antrum took place to rule out H. pylori. Retroflexion revealed a small sliding hiatal hernia. The esophagus was then carefully examined. There were no neoplastic inflammatory or polypoid lesions throughout the visualized esophagus. The patient was kept on the endoscopy table in the left decubitus position. The Olympus colonoscope was inserted into the anus. There was retained mucousy stool that was evacuated manually. The rectum appeared quite short and spastic. No abnormalities were identified. The scope was then advanced into the stoma. There appeared to be a stricture present at the stomal opening that required mild dilation using my fifth digit. The scope was then able to be advanced under direct visualization to the base of the cecum. The appendiceal orifice was visualized. From that point the scope was slowly withdrawn inspecting all surfaces carefully. There were no neoplastic inflammatory or polypoid lesions throughout the cecum, ascending, transverse, and descending colon. There was mild diverticulosis seen. The patient was taken to the recovery room in stable condition per anesthesia guidelines. RECOMMENDATIONS: Increase antiacids. Stool softeners. Await biopsies.
[2019-04-24 10:21] VITALS: BP 130/80; PULSE 82; RESP 16
== END 2019-04-24 10:29 | disposition home or self-care (01) ==
LOC: ORWHC2ENDO 08:02
PROVIDERS: ATTEND Surgery
DX: K29.60 Other gastritis without bleeding (principal); K25.9 Gastric ulcer, unspecified as acute or chronic, without hemorrhage or perforation; K44.9 Diaphragmatic hernia without obstruction or gangrene; K57.30 Diverticulosis of large intestine without perforation or abscess without bleeding; J44.9 Chronic obstructive pulmonary disease, unspecified; K21.9 Gastro-esophageal reflux disease without esophagitis; I10 Essential (primary) hypertension; M19.90 Unspecified osteoarthritis, unspecified site; F41.9 Anxiety disorder, unspecified; F40.240 Claustrophobia; I25.10 Atherosclerotic heart disease of native coronary artery without angina pectoris; F17.200 Nicotine dependence, unspecified, uncomplicated; K94.03 Colostomy malfunction; Z85.3 Personal history of malignant neoplasm of breast; Z91.041 Radiographic dye allergy status; Z88.6 Allergy status to analgesic agent; Z88.5 Allergy status to narcotic agent; Z79.1 Long term (current) use of non-steroidal anti-inflammatories (NSAID); Z79.899 Other long term (current) drug therapy; Z87.19 Personal history of other diseases of the digestive system; Z87.440 Personal history of urinary (tract) infections; Z90.710 Acquired absence of both cervix and uterus; Z98.890 Other specified postprocedural states; Z90.49 Acquired absence of other specified parts of digestive tract; Z90.89 Acquired absence of other organs; Z82.49 Family history of ischemic heart disease and other diseases of the circulatory system; Z79.51 Long term (current) use of inhaled steroids; K31.9 Disease of stomach and duodenum, unspecified
CPT/HCPCS: 88305; 44388; 43239; J2001; J2704; 45378

== ENCOUNTER → 2019-10-01 | Outpatient (CLI) | payer MEDICARE ==
[2019-10-01 20:05] LABS: T4, Free (Free Thyroxine) 1.3 ng/dL (0.80-1.80)
== END | disposition home or self-care (01) ==
LOC: LABWHC1 11:41
PROVIDERS: ATTEND Otolaryngology
DX: R53.83 Other fatigue (principal); E07.9 Disorder of thyroid, unspecified
CPT/HCPCS: 36415; 84439; 84443; 86376

== ENCOUNTER → 2019-10-23 | Outpatient (CLI) | payer MEDICARE ==
--- NOTE | 2019-10-23 09:48 | CT ---
EXAMINATION TYPE: CT soft tissue neck w con DATE OF EXAM: 10/23/2019 9:37 AM COMPARISON: CT chest 03/10/2019 HISTORY: Dysphagia CT DLP: 290.10 mGycm Automated exposure control for dose reduction was used. CONTRAST: CT scan of the neck is performed following with IV Contrast, patient injected with 100 mL of Isovue 3 00. Axial images are obtained, coronal and sagittal reformatted images are reviewed. FINDINGS: Diffuse emphysematous changes of the lungs are seen with biapical pleural thickening simila r to the prior CT scan of the chest. Atherosclerotic change of the aorta. Mild atherosclerotic changes of the origin of the great vessels. Bovine arch noted. There are 2 right-sided thyroid nodules the largest measuring 1.2 cm. The parotid glands are symmetric. Nasopharynx and oropharynx are symmetric. Base of the tongue symmet carlos. Hypertrophic and degenerative changes of the spine. Airways patent and the portal focal cords have a normal appearance. Orbits are symmetric and intact. Submandibular glands have a normal appearance. IMPRESSION: 1. There are right-sided thyroid nodules the largest measuring 1.2 cm. 2. Diffuse COPD with biapical pleural thickening.
--- NOTE | 2019-10-23 10:32 | FL ---
EXAMINATION TYPE: FL barium swallow DATE OF EXAM: 10/23/2019 CLINICAL HISTORY: Dysphasia TECHNIQUE: A double contrast esophagram is performed utilizing air and barium. A total of 15 second s of fluoroscopic time was utilized during procedure. 4 images submitted. COMPARISON: None FINDINGS: The patient could only ingest one swallow and and request examination terminated. She began to vomit. The single ingestion demonstrated the visualized portion the esophagus to be patent with e mptying of contrast into the stomach. No obvious aspiration. IMPRESSION: 1. Patient could only ingest one swallow of contrast with which demonstrated the visualized esophagus to be patent with no obstruction. Patient began to vomit the contrast. Upper esophagus not well-seen consider follow-up modified barium swallow to assess the swelling mechanism.
== END | disposition home or self-care (01) ==
LOC: RADCTMAIN 08:12
PROVIDERS: ATTEND Otolaryngology
DX: J44.9 Chronic obstructive pulmonary disease, unspecified (principal); J98.4 Other disorders of lung; E04.2 Nontoxic multinodular goiter; R13.10 Dysphagia, unspecified; Z91.048 Other nonmedicinal substance allergy status; Z88.8 Allergy status to other drugs, medicaments and biological substances
CPT/HCPCS: 82565; 84520; 74220; 70491; 36415; Q9967

== ENCOUNTER → 2019-11-04 | Outpatient (CLI) | payer MEDICARE ==
[2019-11-04 16:42] LABS: T4, Free (Free Thyroxine) 1.3 ng/dL (0.80-1.80)
== END | disposition home or self-care (01) ==
LOC: LABWHC1 10:25
PROVIDERS: ATTEND Otolaryngology
DX: E04.1 Nontoxic single thyroid nodule (principal); R53.83 Other fatigue
CPT/HCPCS: 36415; 84439; 84443; 86376

== ENCOUNTER 2019-11-12 12:00 | Day surgery (SDC) | payer MEDICARE ==
[2019-11-12 12:51] VITALS: RESP 20; TEMP 98.1
--- NOTE | 2019-11-12 13:19 | US ---
EXAMINATION TYPE: US thyroid st tissue head/neck DATE OF EXAM: 11/12/2019 COMPARISON: CT soft tissue neck 10/23/2019 CLINICAL HISTORY: E04.1 Thyroid nodule. GLAND SIZE: Right Lobe: 3.7 x 2.3 x 1.7 cm Overall Parenchyma: homogenous Left Lobe: 2.9 x 1.3 x 1.4 cm Overall Parenchyma: homogeneous Isthmus Thickness: 0.3 cm NODULES RIGHT: # of nodules measured on right: 3 1. 1.6 X 1.1 x 1.7 cm isoechoic solid nodule at the upper pole with well-defined margins; . This n odule is wider than tall and shows intranodular vascularity. Prior size: no prior 2. 0.9 X 0.7 x 1.1 cm isoechoic solid nodule at the upper pole with well-defined margins; . This no dule is wider than tall and shows no intranodular vascularity. Prior size: no prior 3. 0.4 X 0.3 x 0.5 cm hypoechoic mixed nodule at the upper pole with poorly defined margins; . This nodule is wider than tall and shows intranodular vascularity. Prior size: no prior LEFT: # of nodules measured on left: 0 ISTHMUS: # of nodules measured in the isthmus: 0 Bilateral neck scanned, no evidence of lymphadenopathy. Nodules 1 and 2 on the right side are side by side and appear of similarly echotexture. Bilaterally t he gland is difficult to image as it extends below clavicle. IMPRESSION: Findings suggest multinodular goiter
--- NOTE | 2019-11-12 14:45 | US ---
ULTRASOUND GUIDED FNA THYROID BIOPSY: CLINICAL HISTORY: Right thyroid nodule FINDINGS: The procedure was explained to the patient. The risks, complications, benefits and alternatives were discussed and any questions were answered. Informed consent was obtained. Patient was placed supin e on the ultrasound table and prepped and draped in the usual sterile fashion. Utilizing a 25 gauge needle, five passes were made into the requested right thyroid nodule. Patient was stable throughout the procedure. Pathology is pending. All elements of maximal barrier technique were utilized. IMPRESSION: 1. Successful ultrasound guided FNA thyroid biopsy.
[2019-11-12 14:59] VITALS: BP 152/74; PULSE 97
== END 2019-11-12 14:50 | disposition home or self-care (01) ==
LOC: RADPROMAIN 12:00
PROVIDERS: ATTEND Otolaryngology
DX: E04.1 Nontoxic single thyroid nodule (principal); Z91.048 Other nonmedicinal substance allergy status; Z88.8 Allergy status to other drugs, medicaments and biological substances
CPT/HCPCS: 10005; 76536; 88173; 88305

== ENCOUNTER → 2019-12-01 | Outpatient (CLI) | payer MEDICARE ==
--- NOTE | 2019-12-23 12:42 | EM ---
Event monitor description: Patient wore the event monitor for a total of 14 days starting 12/01/2019 until 12/14/2019 for a total of 293 hours and 30 minutes. She was compliant with wearing the monitor 87% of the time. Summary of findings: Patient had a total of 79 triggered and automatic captured events. Patient had occasional triggered events that corresponded with PVCs as well as approximately half of the events triggered corresponding to normal sinus rhythm. There were 5 additional brief episodes of SVT with heart rates of 140s to 160s which did not correspond to any symptoms. No other significant tachycardia or bradycardia arrhythmias noted. CHRISTIANO
--- NOTE | 2019-12-23 13:00 | P.CEMON ---
Event monitor description: Patient wore the event monitor for a total of 14 days starting 12/01/2019 until 12/14/2019 for a total of 293 hours and 30 minutes. She was compliant with weari ng the monitor 87% of the time. Summary of findings: Patient had a total of 79 triggered and automatic captured events. Patient had occasional triggered events that corresponded with PVCs as well as approximately half of the events triggered corresponding to normal sinus rhythm. There were 5 additional brief episodes of SVT with heart rates of 140s to 160s which did not correspond to any symptoms. No other significant tachycardia or bradycardia arrhythmias noted.
== END | disposition home or self-care (01) ==
LOC: RADECHMAIN 12:26
PROVIDERS: ATTEND Family Medicine
DX: I47.1 Supraventricular tachycardia (principal)
CPT/HCPCS: 93270

== ENCOUNTER → 2019-12-16 | Outpatient (CLI) | payer MEDICARE ==
[~2019-12-16] MED LIST changes: +DOBUTamine DRIP for NUC MED 500 MG in DEXTROSE/WATER 1 250ML.BAG IV ONE; -LACTATED RINGERS 1,000 ML IV SCH
--- NOTE | 2019-12-16 11:30 | P.STRESS ---
- Stress Test Note Stress Test Results/Findings: Exam Performed: dobutamine stress echo Exam Date: 12/16/19 Reason for Exam: CHEST PAIN Height: 5 ft Weight: 103 kg Protocol: DSE Stage: 3 Duration of Exercise: 8:35 Resting Heart Rate: 72 Resting Blood Pressure: 144/67 Maximum Achieved Heart Rate: 128 Maximum Achieved Blood Pressure: 186/74 85% PMHR: 121 100% PMHR: 142 METS: NA Technologist Comment: Stress Test Results/Findings: Patient underwent dobutamine stress echo with infusion of dobutamine into Stage 3 for a total of 8 minutes and 35 seconds. Patient's maximum heart rate was 128 which represented 90% age-predicted maximum heart rate. Stress EKG portion: At baseline patient's EKG showed normal sinus rhythm with a heart rate of 72 bpm, normal axis, poor R-wave progression, nonspecific T-wave inversions in V1 through V3, aVL. At peak dobutamine infusion, EKG showed nondiagnostic 0.[address] depressions in the inferior leads. Stress echo portion: 2-D echocardiogram was performed in the parasternal long, personal short, apical 2 and apical four-chamber views at rest, low-dose, peak infusion and in recovery. At baseline, echocardiogram showed left ventricular ejection fraction [] without wall motion abnormalities. With peak infusion, echocardiogram shows improvement in left ventricular ejection fraction, increase contractility, decrease in left ventricular dimension without wall motion abnormalities consistent with a normal response to dobutamine. Conclusions: 1. Normal stress EKG and echo response to dobutamine infusion without any evidence of inducible ischemia.
--- NOTE | 2019-12-16 12:00 | ECHOF ---
Referral Reason:R07.9 Chest pain, unspecified, R00.2 Palpitations MEASUREMENTS -------- HEIGHT: 152.4 cm WEIGHT: 46.7 kg BP: 144/67 RVIDd: 2.6 cm (< 3.3) IVSd: 1.3 cm (0.6 - 1.1) LVIDd: 3.0 cm (3.9 - 5.3) LVPWd: 1.1 cm (0.6 - 1.1) IVSs: 1.9 cm LVIDs: 1.9 cm LVPWs: 1.6 cm LA Diam: 3.1 cm (2.7 - 3.8) LAESV Index (A-L): 17.54 ml/m Ao Diam: 2.9 cm (2.0 - 3.7) AV Cusp: 1.8 cm (1.5 - 2.6) MV EXCURSION: 14.382 mm (> 18.000) MV EF SLOPE: 45 mm/s (70 - 150) EPSS: 0.3 cm MV E Kendall: 0.69 m/s MV DecT: 280 ms MV A Kendall: 0.88 m/s MV E/A Ratio: 0.78 RAP: 5.00 mmHg RVSP: 32.48 mmHg FINDINGS -------- Sinus rhythm. This was a technically good study. The left ventricular size is normal. There is mild concentric left ventricular hypertrophy. Overa ll left ventricular systolic function is normal with, an EF between 60 - 65 %. The right ventricle is normal in size. Normal LA size by volume 22+/-6 ml/m2. The right atrium is normal in size. Interatrial and interventricular septum intact. There is mild aortic valve sclerosis. Mild mitral annular calcification present. Mild tricuspid regurgitation present. Right ventricular systolic pressure is normal at < 35 mmHg. There is no pulmonic regurgitation present. The aortic root size is normal. Normal inferior vena cava with normal inspiratory collapse consistent with estimated right atrial pre ssure of 5 mmHg. There is no pericardial effusion. CONCLUSIONS -------- 1. The left ventricular size is normal. 2. There is mild concentric left ventricular hypertrophy. 3. Overall left ventricular systolic function is normal with, an EF between 60 - 65 %. 4. Mild mitral annular calcification present. 5. Mild tricuspid regurgitation present. 6. There is no pericardial effusion. INSIDE TESTER: Heena Gomez RDCS
== END | disposition home or self-care (01) ==
LOC: RADECHMAIN 08:18
PROVIDERS: ATTEND Internal Medicine Cardiovascular Disease
DX: I07.1 Rheumatic tricuspid insufficiency (principal)
CPT/HCPCS: 93306; 93351; J1250

== ENCOUNTER → 2020-01-05 | Outpatient (CLI) | payer MEDICARE ==
--- NOTE | 2020-01-05 11:40 | FL ---
EXAMINATION TYPE: FL barium swallow w video DATE OF EXAM: 01/05/2020 MODIFIED SWALLOW / DEGLUTITION STUDY CLINICAL HISTORY: Dysphagia. TECHNIQUE: Deglutition study is performed utilizing thin liquid barium, honey and nectar thick liqui d barium, barium thick applesauce, and barium coated cracker. COMPARISON: None. FINDINGS: The oral and pharyngeal phases show satisfactory initiation and propagation with all modali ties tested. Normal mastication is seen with solid modalities tested. There is no evidence of penet ration or aspiration with any modality tested. No significant pharyngeal residue was appreciated. 5 7 seconds of flouroscopy. IMPRESSION: No evidence of extravasation or aspiration.
== END | disposition home or self-care (01) ==
LOC: RADFLMAIN 10:48
PROVIDERS: ATTEND Surgery
DX: R13.10 Dysphagia, unspecified (principal)
CPT/HCPCS: 74230

== ENCOUNTER → 2020-03-07 | Outpatient (CLI) | payer MEDICARE ==
--- NOTE | 2020-03-07 20:12 | US ---
EXAMINATION TYPE: US carotid duplex BILAT DATE OF EXAM: 03/07/2020 COMPARISON: NONE CLINICAL HISTORY: 79-year-old female I65.29 Occlusion and stenosis of unspecified carotid artery. TECHNIQUE: Carotid duplex ultrasound examination. In direct upper criteria is utilized. FINDINGS: EXAM MEASUREMENTS: RIGHT: Peak Systolic Velocity (PSV) cm/sec ----- Right CCA: 114.2 ----- Right ICA: 99.7 ----- Right ECA: 148.9 ICA/CCA ratio: 0.9 RIGHT: End Diastole cm/sec ----- Right CCA: 5.2 ----- Right ICA: 15.4 ----- Right ECA: 0 LEFT: Peak Systolic Velocity (PSV) cm/sec ----- Left CCA: 97.7 ----- Left ICA: 93.8 ----- Left ECA: 156.8 ICA/CCA ratio: 1.0 LEFT: End Diastole cm/sec ----- Left CCA: 0 ----- Left ICA: 11.0 ----- Left ECA: 0 VERTEBRALS (direction of flow): Right Vertebral: Antegrade Left Vertebral: Antegrade Rhythm: Normal Air Tube Releaser notes: Minimal plaque visualized. Elevated velocities in bilateral ECAs. No significant ICA stenosis. IMPRESSION: 1. No hemodynamically significant internal carotid artery stenosis either side. 2. Measurements suggest moderate stenoses within the proximal external carotid arteries on both side s. Criteria for Assigning % of Stenosis / Diameter reduction (Estimation based on the indirect measurements of the internal carotid artery velocities (ICA PSV). 1. Normal (no stenosis)=ICA PSV < 125 cm/s: ratio < 2.0: ICA EDV<40 cm/s. 2. Less than 50% stenosis=ICA PSV < 125 cm/s: ratio < 2.0: ICA EDV<40 cm/s. 3. 50 to 69% stenosis=ICA PSV of 125 to 230 cm/s: ration 2.0 ? 4.0: ICA EDV 40-100 cm/s. 4. Greater than 70% stenosis to near occlusion= ICA PSV > 230 cm/s: ratio > 4.0: ICA EDV > 100 cm/s. 5. Near occlusion= ICA PSV velocities may be low or undetectable: variable ratio and ICA EDV. 6. Total occlusion=unable to detect flow.
== END | disposition home or self-care (01) ==
LOC: RADUSWWP 12:12
PROVIDERS: ATTEND Family Medicine
DX: I65.23 Occlusion and stenosis of bilateral carotid arteries (principal)
CPT/HCPCS: 93880

== ENCOUNTER → 2020-05-16 | Outpatient (CLI) | payer MEDICARE ==
--- NOTE | 2020-05-16 10:30 | US ---
EXAMINATION TYPE: US thyroid st tissue head/neck DATE OF EXAM: 05/16/2020 COMPARISON: US 11/12/2019 CLINICAL HISTORY: E04.1 THYROID NODULE. GLAND SIZE: Right Lobe: 3.4 x 2.3 x 1.6 cm Overall Parenchyma: heterogenous Left Lobe: 2.8 x 0.9 x 1.1 cm Overall Parenchyma: homogeneous Isthmus Thickness: 0.2 cm NODULES RIGHT: # of nodules measured on right: 2 1. 1.7 X 1.0 x 1.5 cm solid or almost completely solid, isoechoic nodule, which is wider than tall, with smooth margins, without echogenic foci. Prior size: 1.6 X 1.1 x 1.7 cm 2. 1.1 X 0.5 x 0.8 cm solid or almost completely solid, isoechoic nodule, which is wider than tall, with smooth margins, without echogenic foci. Prior size: 0.9 x 0.7 x 1.1 cm LEFT: # of nodules measured on left: 0 ISTHMUS: # of nodules measured in the isthmus: 0 Bilateral neck scanned, no evidence of lymphadenopathy. IMPRESSION: Essentially stable nonspecific thyroid nodularity. In stable. Urinary bladder is intact she was very tolerated the maxillary fibula
== END | disposition home or self-care (01) ==
LOC: RADUSWWP 09:35
PROVIDERS: ATTEND Otolaryngology
DX: E04.2 Nontoxic multinodular goiter (principal); Z91.048 Other nonmedicinal substance allergy status; Z88.8 Allergy status to other drugs, medicaments and biological substances
CPT/HCPCS: 76536

== ENCOUNTER 2020-05-31 12:06 | Day surgery (SDC) | payer MEDICARE ==
[2020-05-31 12:52] VITALS: TEMP 98.5
[2020-05-31 13:43] VITALS: BP 159/71; PULSE 81; RESP 18
--- NOTE | 2020-05-31 13:59 | US ---
ULTRASOUND GUIDED FNA THYROID BIOPSY: CLINICAL HISTORY: Request for 2 right-sided thyroid nodule FNA FINDINGS: The procedure was explained to the patient. The risks, complications, benefits and alternatives were discussed and any questions were answered. Informed consent was obtained. Patient was placed supin e on the ultrasound table and prepped and draped in the usual sterile fashion. Utilizing a 25 gauge needle, five passes were made into the each of the 2 requested right-sided thyroid nodules. Patient was stable throughout the procedure. Pathology is pending. All elements of maximal barrier technique were utilized. IMPRESSION: 1. Successful ultrasound guided FNA thyroid biopsy.
== END 2020-05-31 13:40 | disposition home or self-care (01) ==
LOC: RADPROMAIN 12:06
PROVIDERS: ATTEND Otolaryngology
DX: E04.1 Nontoxic single thyroid nodule (principal)
CPT/HCPCS: 10005; 10006; 88173; 88305

== ENCOUNTER → 2021-01-16 | Outpatient (CLI) | payer MEDICARE ==
--- NOTE | 2021-01-16 13:27 | USB ---
Reason for exam: clinical finding. History: Patient is postmenopausal and has history of breast cancer at age 75. Family history of breast cancer in sister. Mastectomy of the left breast, August 08, 2016. Malignant US biopsy breast VAD LT of the left breast, July 06, 2016. Benign excisional biopsy of both breasts. Indicated problem(s): palpable abnormality in the left breast. Physical Findings: Nurse Summary: soft, movable palpable at medial mastectomy scar, 0.5 x 1cm (nurse ts). US Breast Limited LT Left limited breast ultrasound including focal area of concern, retroareolar and axilla demonstrates a 1.4 x 1.0 x 0.5cm isoechoic, circumscribed, suspected lipoma at chest wall, 6 month follow up ultrasound, however, patient is due not for right mammogram. Scanned area of concer at left chest 6 o'clock zone D. These results were verbally communicated with the patient and result sheet given to the patient on 01/16/21. ASSESSMENT: Probably benign, BI-RAD 3 RECOMMENDATION: Ultrasound of the left breast in 6 months. Manage patient on a clinical basis. Surgical evaluation if the palpable area continues to enlarge or is symptomatic.
== END | disposition home or self-care (01) ==
LOC: RADUSWWP 08:55
PROVIDERS: ATTEND Family Medicine
DX: N63.0 Unspecified lump in unspecified breast (principal); Z80.3 Family history of malignant neoplasm of breast

== ENCOUNTER 2021-02-02 10:44 | Inpatient (IN) | payer MEDICARE ==
[2021-02-02] MEDS ORDERED: methylPREDNISolone SOD SUCCI 125 MG/2 ML VIAL IV STA (11:17)
[2021-02-02] MEDS ORDERED: IPRATROPIUM-ALBUTEROL 3 ML NEB INHALATION STA (11:17)
--- NOTE | 2021-02-02 12:05 | XR ---
EXAMINATION TYPE: XR chest 2V DATE OF EXAM: 02/02/2021 COMPARISON: 02/28/2019 HISTORY: 80 year-old female shortness of breath, difficulty breathing TECHNIQUE: AP and lateral views FINDINGS: Surgical clips left axilla and left mediastinum. Heart upper limits of normal in size. Atheroscleroti c arch calcifications. Hyperinflation. Interstitial and vascular prominence. Unchanged left hilar pro minence. Some cephalization of the pulmonary vasculature. No adán consolidation or pleural effusion. Biapical pleural parenchymal scarring. IMPRESSION: 1. COPD. Borderline heart size. 2. Vascular/interstitial prominence. Correlate to exclude mild pulmonary vascular congestion.
[2021-02-02 12:14] LABS: Basophils % (A) 0 %; Eosinophils % (A) 0 %; HCT 40.8 % (34.0-46.0); HGB 13.2 gm/dL (11.4-16.0); Lymphocytes # (A) 0.4 k/uL (1.0-4.8); Lymphocytes % (A) 5 %; MCH 28.8 pg (25.0-35.0); MCHC 32.3 g/dL (31.0-37.0); MCV 89.2 fL (80.0-100.0); Mean Platelet Volume 7.2; Monocytes # (A) 0.3 k/uL (0-1.0); Monocytes % (A) 3 %; Neutrophils # (A) 7.9 k/uL (1.3-7.7); Neutrophils % (A) 91 %; Platelet Count 262 k/uL (150-450); RBC 4.57 m/uL (3.80-5.40); RDW 13.7 % (11.5-15.5); WBC 8.7 k/uL (3.8-10.6)
[2021-02-02 12:27] LABS: INR 0.9 (<1.2); Partial Thromboplastin Time 23.3 sec (22.0-30.0); Prothrombin Time 9.8 sec (9.0-12.0)
[2021-02-02 12:35] LABS: ALT 16 U/L (4-34); AST 20 U/L (14-36); African American GFR (CKD) >90 (>60 ml/min/1.73 sqM); Albumin 3.4 g/dL (3.5-5.0); Alkaline Phosphatase 71 U/L (38-126); Anion Gap 3 mmol/L; Blood Urea Nitrogen 19 mg/dL (7-17); Calcium 9.8 mg/dL (8.4-10.2); Carbon Dioxide 34 mmol/L (22-30); Chloride 98 mmol/L (98-107); Glucose 144 mg/dL (74-99); Magnesium 1.9 mg/dL (1.6-2.3); Non-African American GFR(CKD) 84 (>60 ml/min/1.73 sqM); Potassium 4.2 mmol/L (3.5-5.1); Sodium 135 mmol/L (137-145); Total Bilirubin 0.4 mg/dL (0.2-1.3)
--- NOTE | 2021-02-02 12:47 | ED ---
SOB HPI - General Chief Complaint: Shortness of Breath Stated Complaint: COPD-sent by [facility] Time Seen by Provider: 02/02/21 11:03 Source: patient, family, RN notes reviewed, old records reviewed Mode of arrival: wheelchair Limitations: no limitations - History of Present Illness Initial Comments: Patient is a 80-year-old female with history of heart disease, COPD on 3 L at home, hypertension, presenting to the emergency department from Dr. Foss's [place] for a COPD exacerbation. Over the past several weeks she's had increase in shortness of breath. Patient's daughter is here with her and helping provide history. She's been doing her at-home nebulizers, inhalers, she is also on a daily dose of steroids without improvement. She was in Dr. Foss's office today, they sent her in for further treatment and evaluation. She denies any chest pain, no abdominal pains, some intermittent nausea but no vomiting or diarrhea. She denies any dizziness or lightheadedness. She believes the swelling in her lower legs is a little bit more than normal. She denies any fevers or chills, no cough. Patient has no further complaints today. Her vitals are stable on 3 L at 98%. - Related Data Home Medications Medication Instructions Recorded Confirmed Gabapentin [Neurontin] 100 mg PO TID PRN 09/17/14 05/13/20 ALPRAZolam [Xanax] 1 mg PO TID PRN 06/16/15 02/02/21 Omeprazole [PriLOSEC] 20 mg PO DAILY 03/06/16 02/02/21 Dicyclomine [Bentyl] 10 mg PO BID 11/12/16 02/02/21 Tiotropium [place] [Spiriva] 1 cap INHALATION RT-DAILY 11/12/16 05/13/20 Albuterol Nebulized [Ventolin 2.5 mg INHALATION RT-QID 03/10/18 05/13/20 Nebulized] Celecoxib [CeleBREX] 200 mg PO DAILY 01/22/19 02/02/21 Losartan Potassium 100 mg PO BID 01/22/19 02/02/21 Albuterol Sulfate [Proair Hfa] 2 puff INHALATION RT-QID PRN 02/02/21 02/02/21 Budesonide/Formoterol Fumarate 2 puff INHALATION RT-BID 02/02/21 [Symbicort 160-4.5 Mcg Inhaler] Fluticasone Nasal [place] [Flonase 2 spr EA NOSTRIL DAILY 02/02/21 02/02/21 Nasal [place]] Ipratropium Nebulized [Atrovent 0.5 mg INHALATION RT-QID 02/02/21 02/02/21 Nebulized 0.2 MG/ML] Letrozole [Femara] 2.5 mg PO DAILY 02/02/21 02/02/21 hydroCHLOROthiazide [Hydrodiuril] 12.5 mg PO DAILY 02/02/21 02/02/21 predniSONE See Taper PO DAILY 02/02/21 02/02/21 Previous Rx's Medication Instructions Recorded Prochlorperazine [Compazine] 10 mg PO TID PRN #30 tab 06/18/15 Allergies Allergy/AdvReac Type Severity Reaction Status Date / Time aspirin AdvReac Nausea Verified 02/02/21 14:22 codeine AdvReac Nausea Verified 02/02/21 14:22 Iodinated Contrast Media AdvReac Vomiting Verified 02/02/21 14:22 [Iodinated Contrast Media - IV Dye] Review of Systems ROS Statement: Those systems with pertinent positive or pertinent negative responses have been documented in the HPI. ROS Other: All systems not noted in ROS Statement are negative. Past Medical History Past Medical History: Asthma, Coronary Artery Disease (CAD), Cancer, COPD, GERD/Reflux, Hypertension, Osteoarthritis (OA), Pneumonia, Respiratory Disorder Additional Past Medical History / Comment(s): Other hx: L breast cancer with left mastectomy, diverticulosis/diverticular complications and rectovaginal fistula status post fistula repair, colon resection and colostomy placement at [facility], irritable bowel syndrome, peptic ulcer disease, generalized arthritis-multiple joints, leg cramps, frequent UTIs, migraines in the past, bronchitis, allergic rhinitis. O2L/NC PRN History of Any Multi-Drug Resistant Organisms: None Reported Past Surgical History: Adenoidectomy, Appendectomy, Bladder Surgery, Bowel Resection, Cholecystectomy, Heart Catheterization, Hysterectomy, Orthopedic Surgery, Tonsillectomy Additional Past Surgical History / Comment(s): 09/21/14 cardiac cath with disease-treated medically, cataracts removed bilaterally with lens implants, rt rotator cuff, juan m carpal tunnel, bladder suspension, rectocele repair, hemorrhoidectomy, colonoscopies, camera endoscopy, EGD, left mastectomy , vaginal rectal fistula repair, bowel resection and colostomy placement Past Anesthesia/Blood Transfusion Reactions: No Reported Reaction Additional Past Anesthesia/Blood Transfusion Reaction / Comment(s): Pt is claustrophobic. Past Psychological History: Anxiety Smoking Status: Former smoker Past Alcohol Use History: None Reported Past Drug Use History: None Reported - Past Family History Father Family Medical History: COPD Additional Family Medical History / Comment(s): Father is . Mother Family Medical History: CVA/TIA, Hypertension Additional Family Medical History / Comment(s): at age 91 Brother(s) Family Medical History: Cancer, Myocardial Infarction ([place]) Daughter(s) Family Medical History: No Reported History Son(s) Family Medical History: No Reported History Sister(s) Family Medical History: Cancer Additional Family Medical History / Comment(s): Sister had metastatic breast cancer and is . General Exam - General Exam Comments Initial Comments: GENERAL: Patient is well-developed and well-nourished. Patient is nontoxic and in mild distress. HEAD: Atraumatic, normocephalic. EYES: Pupils equal round and reactive to light, extraocular movements intact, sclera anicteric, conjunctiva are normal. Eyelids were unremarkable. ENT: TMs normal, nares patent, oropharynx clear without exudates. Moist mucous membranes. NECK: Normal range of motion, supple without lymphadenopathy or JVD. LUNGS: Labored respirations, working hard. Decreased breath sounds in the lower [place], scattered wheezes throughout. HEART: Regular rate and rhythm without murmurs, rubs or gallops. ABDOMEN: Soft, nontender, normoactive bowel sounds. No guarding, no rebound. No masses appreciated. MUSCULOSKELETAL: Normal extremities with adequate strength and normal range of motion, no pitting or edema. No clubbing or cyanosis. NEUROLOGICAL: Patient is alert and oriented x 3. Motor and sensory are also intact. Cranial nerves II through XII grossly intact. Symmetrical smile. Normal speech, normal gait. PSYCH: Normal mood, normal affect. SKIN: Warm, Dry, normal turgor, no rashes or lesions noted. Limitations: no limitations Course Vital Signs 02/02/21 02/02/21 02/02/21 10:57 11:45 13:16 Temperature 97.9 F Pulse Rate 60 86 107 H Respiratory 23 22 Rate Blood Pressure 144/54 149/52 O2 Sat by Pulse 98 99 Oximetry 02/02/21 02/02/21 13:26 14:27 Temperature Pulse Rate 95 89 Respiratory 20 Rate Blood Pressure 168/75 O2 Sat by Pulse 98 Oximetry Medical Decision Making - Medical Decision Making Patient is a 40-year-old female with multiple comorbidities, including COPD, normally on 3 L at home presenting from Dr. Bain's office for COPD exacerbation. She's been feeling worsening symptoms over the past month. She's been doing at-home nebulizers, steroids without improvement. She was at Dr. Bain's office today who sent her in for further treatment/admission. Vitals upon arrival were stable on 3 L at 98%. Labs are stable at this time including a normal troponin and BNP is 623. Rapid: Is negative. Chest x-ray shows COPD, borderline heart size, vascular prominence. Patient will be admitted for COPD exacerbation with consult to Dr. Bain. Patient excepted by Dr. Maldonado. Case discussed with Dr. Lima. - Lab Data Result diagrams: 02/02/21 11:30 02/02/21 11:30 Lab Results 02/02/21 02/02/21 02/02/21 Range/Units 11:30 11:30 11:30 WBC 8.7 (3.8-10.6) k/uL RBC 4.57 (3.80-5.40) m/uL Hgb 13.2 (11.4-16.0) gm/dL Hct 40.8 (34.0-46.0) % MCV 89.2 (80.0-100.0) fL MCH 28.8 (25.0-35.0) pg MCHC 32.3 (31.0-37.0) g/dL RDW 13.7 (11.5-15.5) % Plt Count 262 (150-450) k/uL MPV 7.2 Neutrophils % 91 % Lymphocytes % 5 % Monocytes % 3 % Eosinophils % 0 % Basophils % 0 % Neutrophils # 7.9 H (1.3-7.7) k/uL Lymphocytes # 0.4 L (1.0-4.8) k/uL Monocytes # 0.3 (0-1.0) k/uL Eosinophils # 0.0 (0-0.7) k/uL Basophils # 0.0 (0-0.2) k/uL PT 9.8 (9.0-12.0) sec INR 0.9 (<1.2) APTT 23.3 (22.0-30.0) sec Sodium 135 L (137-145) mmol/L Potassium 4.2 (3.5-5.1) mmol/L Chloride 98 (98-107) mmol/L Carbon Dioxide 34 H (22-30) mmol/L Anion Gap 3 mmol/L BUN 19 H (7-17) mg/dL Creatinine 0.68 (0.52-1.04) mg/dL Est GFR (CKD-EPI)AfAm >90 (>60 ml/min/1.73 sqM) Est GFR (CKD-EPI)NonAf 84 (>60 ml/min/1.73 sqM) Glucose 144 H (74-99) mg/dL Plasma Lactic Acid [place] (0.7-2.0) mmol/L Calcium 9.8 (8.4-10.2) mg/dL Magnesium 1.9 (1.6-2.3) mg/dL Total Bilirubin 0.4 (0.2-1.3) mg/dL AST 20 (14-36) U/L ALT 16 (4-34) U/L Alkaline Phosphatase 71 (38-126) U/L Troponin I (0.000-0.034) ng/mL NT-Pro-B Natriuret Pep pg/mL Total Protein 6.0 L (6.3-8.2) g/dL Albumin 3.4 L (3.5-5.0) g/dL Coronavirus (PCR) (Not Detectd) 02/02/21 02/02/21 02/02/21 Range/Units 11:30 11:30 11:30 WBC (3.8-10.6) k/uL RBC (3.80-5.40) m/uL Hgb (11.4-16.0) gm/dL Hct (34.0-46.0) % MCV (80.0-100.0) fL MCH (25.0-35.0) pg MCHC (31.0-37.0) g/dL RDW (11.5-15.5) % Plt Count (150-450) k/uL MPV Neutrophils % % Lymphocytes % % Monocytes % % Eosinophils % % Basophils % % Neutrophils # (1.3-7.7) k/uL Lymphocytes # (1.0-4.8) k/uL Monocytes # (0-1.0) k/uL Eosinophils # (0-0.7) k/uL Basophils # (0-0.2) k/uL PT (9.0-12.0) sec INR (<1.2) APTT (22.0-30.0) sec Sodium (137-145) mmol/L Potassium (3.5-5.1) mmol/L Chloride (98-107) mmol/L Carbon Dioxide (22-30) mmol/L Anion Gap mmol/L BUN (7-17) mg/dL Creatinine (0.52-1.04) mg/dL Est GFR (CKD-EPI)AfAm (>60 ml/min/1.73 sqM) Est GFR (CKD-EPI)NonAf (>60 ml/min/1.73 sqM) Glucose (74-99) mg/dL Plasma Lactic Acid [place] 1.7 (0.7-2.0) mmol/L Calcium (8.4-10.2) mg/dL Magnesium (1.6-2.3) mg/dL Total Bilirubin (0.2-1.3) mg/dL AST (14-36) U/L ALT (4-34) U/L Alkaline Phosphatase (38-126) U/L Troponin I <0.012 (0.000-0.034) ng/mL NT-Pro-B Natriuret Pep 623 pg/mL Total Protein (6.3-8.2) g/dL Albumin (3.5-5.0) g/dL Coronavirus (PCR) (Not Detectd) 02/02/21 Range/Units 11:30 WBC (3.8-10.6) k/uL RBC (3.80-5.40) m/uL Hgb (11.4-16.0) gm/dL Hct (34.0-46.0) % MCV (80.0-100.0) fL MCH (25.0-35.0) pg MCHC (31.0-37.0) g/dL RDW (11.5-15.5) % Plt Count (150-450) k/uL MPV Neutrophils % % Lymphocytes % % Monocytes % % Eosinophils % % Basophils % % Neutrophils # (1.3-7.7) k/uL Lymphocytes # (1.0-4.8) k/uL Monocytes # (0-1.0) k/uL Eosinophils # (0-0.7) k/uL Basophils # (0-0.2) k/uL PT (9.0-12.0) sec INR (<1.2) APTT (22.0-30.0) sec Sodium (137-145) mmol/L Potassium (3.5-5.1) mmol/L Chloride (98-107) mmol/L Carbon Dioxide (22-30) mmol/L Anion Gap mmol/L BUN (7-17) mg/dL Creatinine (0.52-1.04) mg/dL Est GFR (CKD-EPI)AfAm (>60 ml/min/1.73 sqM) Est GFR (CKD-EPI)NonAf (>60 ml/min/1.73 sqM) Glucose (74-99) mg/dL Plasma Lactic Acid [place] (0.7-2.0) mmol/L Calcium (8.4-10.2) mg/dL Magnesium (1.6-2.3) mg/dL Total Bilirubin (0.2-1.3) mg/dL AST (14-36) U/L ALT (4-34) U/L Alkaline Phosphatase (38-126) U/L Troponin I (0.000-0.034) ng/mL NT-Pro-B Natriuret Pep pg/mL Total Protein (6.3-8.2) g/dL Albumin (3.5-5.0) g/dL Coronavirus (PCR) Not Detected (Not Detectd) - EKG Data EKG Comments: Sinus rhythm with marked sinus arrhythmia with short [place] with premature atrial complexes, T-wave abnormalities, consider anterior ischemia, no acute ST segment elevation. Compared to previous on 02/28/2019. Particular rate 98, WY interval 102, QT 358. Disposition Clinical Impression: COPD with acute exacerbation Disposition: ADMITTED IP TO THIS HOSP Condition: Fair Decision Date: 02/02/21 Decision Time: 13:44
[2021-02-02] MEDS ORDERED: AZITHROMYCIN 500 MG in SODIUM CHLORIDE 0.9% 250 ML IVPB STA (13:43)
[2021-02-02] MEDS ORDERED: ONDANSETRON 4 MG/2 ML VIAL IVP STA (14:05)
[2021-02-02] MEDS: methylPREDNISolone SOD SUCCI 125 MG/2 ML VIAL IV SCH (17:36)
[2021-02-02] MEDS ORDERED: ALPRAZolam 1 MG TAB PO PRN (17:56)
[2021-02-02] MEDS ORDERED: GABAPENTIN 100 MG CAP PO PRN (17:56)
[2021-02-02] MEDS: IPRATROPIUM-ALBUTEROL 3 ML NEB INHALATION PRN (18:12)
--- NOTE | 2021-02-02 18:42 | P.CNPUL ---
History of Present Illness Consult date: 02/02/21 Reason for consult: dyspnea, COPD History of present illness: 80-year-old female patient, known history of COPD, hospital for an acute COPD exacerbation worsening shortness of breath. The patient has advanced COPD at baseline with an FEV1 of 51% of predicted. She has undergone a combination of Symbicort and Spiriva and albuterol nebulized treatment are necessary basis. She is a chronic smoker. She is fully vaccinated for COVID-19. She comes into the hospital because of acute dyspnea cough chest tightness or wheezing.no angina. No palpitations. The white cell count is at 8.7 and the patient has a hemoglobin of 13.2, normal coagulation profile, sodium is at 135, BUN is at 19 with a creatinine of 0.6. Electrolytes are normal, troponins were negative at 0.01. ProBNP levelis at 623.COVID-19 testing was negative. The patient unde rwent an EKG that showed a normal sinus rhythm. There was evidence of sinus arrhythmia with a short IN interval and premature atrial complexes.the chest x- rays consistent with COPD. Borderline heart size. There is mild pulmonary vascular Review of Systems Constitutional: Reports fatigue, Reports poor appetite Eyes: denies blurred vision, denies decreased vision Ears: deny: decreased hearing Ears, nose, mouth and throat: Reports sore throat Cardiovascular: Reports shortness of breath Respiratory: Reports cough with sputum, Reports dyspnea, Reports wheezing Gastrointestinal: Reports diarrhea, Reports nausea Genitourinary: Denies dysuria, Denies hematuria Musculoskeletal: Reports muscle weakness Integumentary: Denies pruritus, Denies rash Neurological: Denies numbness, Denies weakness Psychiatric: Denies anxiety, Denies depression Endocrine: Denies fatigue, Denies weight change Past Medical History Past Medical History: Asthma, Coronary Artery Disease (CAD), Cancer, COPD, GERD/ Reflux, Hypertension, Osteoarthritis (OA), Pneumonia, Respiratory Disorder Additional Past Medical History / Comment(s): Other hx: L breast cancer with left mastectomy, diverticulosis/diverticular complications and rectovaginal fistula status post fistula repair, colon resection and colostomy placement at [facility], irritable bowel syndrome, peptic ulcer disease, generalized arthritis-multiple joints, leg cramps, frequent UTIs, migraines in the past, bronchitis, allergic rhinitis. 3.5L oxygen via [place] History of Any Multi-Drug Resistant Organisms: None Reported Past Surgical History: Adenoidectomy, Appendectomy, Bladder Surgery, Bowel Resection, Cholecystectomy, Heart Catheterization, Hysterectomy, Orthopedic Surgery, Tonsillectomy Additional Past Surgical History / Comment(s): 09/21/14 cardiac cath with disease-treated medically, cataracts removed bilaterally with lens implants, rt rotator cuff, juan m carpal tunnel, bladder suspension, rectocele repair, hemorrhoidectomy, colonoscopies, camera endoscopy, EGD, left mastectomy , vaginal rectal fistula repair, bowel resection and colostomy placement Past Anesthesia/Blood Transfusion Reactions: No Reported Reaction Additional Past Anesthesia/Blood Transfusion Reaction / Comment(s): Pt is claustrophobic. Past Psychological History: Anxiety Additional Psychological History / Comment(s): Pt resides at [facility]. She is independent. She uses no assistive device. She drives. She has a nebulizer. Her daughter does the grocery shopping. She has a little anxiety which she occasionally uses xanax with good results. She is claustrophobic. Smoking Status: Former smoker Past Alcohol Use History: None Reported Additional Past Alcohol Use History / Comment(s): Patient started smoking in 1960 1 pack per day and quit 2 weeks ago. 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 She is . She has grown children in the area. Past Drug Use History: None Reported - Past Family History Father Family Medical History: COPD Additional Family Medical History / Comment(s): Father is . Mother Family Medical History: CVA/TIA, Hypertension Additional Family Medical History / Comment(s): at age 91 Brother(s) Family Medical History: Cancer, Myocardial Infarction ([place]) Daughter(s) Family Medical History: No Reported History Son(s) Family Medical History: No Reported History Sister(s) Family Medical History: Cancer Additional Family Medical History / Comment(s): Sister had metastatic breast cancer and is . Medications and Allergies Home Medications Medication Instructions Recorded Confirmed Type Gabapentin [Neurontin] 100 mg PO TID PRN 09/17/14 02/02/21 History ALPRAZolam [Xanax] 1 mg PO TID PRN 06/16/15 02/02/21 History Prochlorperazine [Compazine] 10 mg PO TID PRN #30 tab 06/18/15 02/02/21 Rx Omeprazole [PriLOSEC] 20 mg PO DAILY 03/06/16 02/02/21 History Dicyclomine [Bentyl] 10 mg PO BID 11/12/16 02/02/21 History Tiotropium [place] [Spiriva] 1 cap INHALATION RT-DAILY 11/12/16 02/02/21 History Albuterol Nebulized [Ventolin 2.5 mg INHALATION RT-QID 03/10/18 02/02/21 History Nebulized] Celecoxib [CeleBREX] 200 mg PO DAILY 01/22/19 02/02/21 History Losartan Potassium 100 mg PO BID 01/22/19 02/02/21 History Albuterol Sulfate [Proair Hfa] 2 puff INHALATION RT-QID PRN 02/02/21 02/02/21 H istory Benzonatate [Tessalon [place]] 100 mg PO TID PRN 02/02/21 02/02/21 History Budesonide/Formoterol Fumarate 2 puff INHALATION RT-BID 02/02/21 02/02/21 History [Symbicort 160-4.5 Mcg Inhaler] Fluticasone Nasal [place] [Flonase 2 spr EA NOSTRIL DAILY 02/02/21 02/02/21 History Nasal [place]] Ipratropium Nebulized [Atrovent 0.5 mg INHALATION RT-QID 02/02/21 02/02/21 History Nebulized 0.2 MG/ML] Letrozole [Femara] 2.5 mg PO DAILY 02/02/21 02/02/21 History hydroCHLOROthiazide [Hydrodiuril] 12.5 mg PO DAILY 02/02/21 02/02/21 History predniSONE See Taper PO DAILY 02/02/21 02/02/21 History Allergies Allergy/AdvReac Type Severity Reaction Status Date / Time aspirin AdvReac Nausea Verified 02/02/21 14:22 codeine AdvReac Nausea Verified 02/02/21 14:22 Iodinated Contrast Media AdvReac Vomiting Verified 02/02/21 14:22 [Iodinated Contrast Media - IV Dye] Physical Exam Vitals: Vital Signs Temp Pulse Pulse Resp BP BP Pulse Ox 02/02/21 18:23 88 02/02/21 18:12 84 02/02/21 15:50 98.3 F 62 18 124/62 96 02/02/21 14:27 89 20 168/75 98 02/02/21 13:26 95 02/02/21 13:16 107 H 02/02/21 11:45 86 22 149/52 99 02/02/21 10:57 97.9 F 60 23 144/54 98 Intake and Output 02/02/21 02/02/21 02/02/21 06:59 14:59 22:59 Intake Total 180 Balance 180 Intake: Oral 180 Other: Weight 51.256 kg 51.256 kg GENERAL EXAM: Frail, cachectic. Alert, fairly comfortable in no apparent distress. HEAD: Normocephalic. EYES: Normal reaction of pupils, equal size. NOSE: Clear with pink turbinates. THROAT: No erythema or exudates. NECK: No masses, no JVD. CHEST: No chest wall deformity. LUNGS: Equal air entry with bilateral end expiratory wheeze. Diminished.. CVS: S1 and S2 normal with no audible murmur, regular rhythm. ABDOMEN: No hepatosplenomegaly, normal bowel sounds, no guarding or rigidity. SPINE: Kyphoscoliosis SKIN: No rashes CENTRAL NERVOUS SYSTEM: No focal deficits, tone is normal in all 4 extremities. EXTREMITIES: There is no peripheral edema. No clubbing, no cyanosis. Peripheral pulses are intact. Results - Laboratory Findings CBC and BMP: 02/02/21 11:30 02/02/21 11:30 PT/INR, D-dimer PT 9.8 sec (9.0-12.0) 02/02/21 11:30 INR 0.9 (<1.2) 02/02/21 11:30 Abnormal lab findings: Abnormal Labs 02/02/21 02/02/21 11:30 11:30 Neutrophils # 7.9 H Lymphocytes # 0.4 L Sodium 135 L Carbon Dioxide 34 H BUN 19 H Glucose 144 H Total Protein 6.0 L Albumin 3.4 L - Diagnostic Findings Chest x-ray: image reviewed Assessment and Plan Plan: Impression: 1 Acute exacerbation of chronic obstructive pulmonary disease, no evidence of pneumonia. COVID-19 testing is negative the patient has been vaccinated for COVID-19 2 Acute hypoxic respiratory failure secondary to above. 3 previous history of colectomy with colostomy secondary to rectovaginal fistula repair with previous frequent urinary tract infections and diverticular disease. 4 Coronary artery disease, currently inactive and stable. Most recent cardiac catheterization revealed nonocclusive disease. 5 Hypertension. 6 Hyperlipidemia. 7 History of chronic tobacco dependence. 8 Breast cancer with his left mastectomy. 9 Osteoporosis. Plan DuoNeb nebulized treatments around the clock along with IV Solu Medrol 60 mg every 6 hours supplement oxygen to maintain a saturation above 90% Lovenox 40 mg subcu 40 prophylaxis Smoking cessation counseling Resume all medications We'll continue to follow
[2021-02-02] MEDS: LOSARTAN 50 MG TAB PO SCH (19:44)
[2021-02-03] MEDS: methylPREDNISolone SOD SUCCI 125 MG/2 ML VIAL IV SCH ×4 (00:26→17:53)
[2021-02-03] MEDS: IPRATROPIUM-ALBUTEROL 3 ML NEB INHALATION PRN ×3 (02:12→10:55)
[2021-02-03] MEDS: LETROZOLE 2.5 MG TAB PO SCH (08:39)
[2021-02-03] MEDS: ENOXAPARIN 30 MG/0.3 ML SYRINGE SQ SCH (08:39)
[2021-02-03] MEDS: LOSARTAN 50 MG TAB PO SCH ×2 (08:39→20:50)
[2021-02-03] MEDS: PANTOPRAZOLE 40 MG TABLET PO SCH (08:39)
[2021-02-03] MEDS ORDERED: hydroCHLOROthiazide 25 MG TAB PO SCH (09:00)
[2021-02-03] MEDS ORDERED: PROCHLORPERAZINE 10 MG TAB PO PRN (09:36)
[2021-02-03] MEDS: FLUCONAZOLE 100 MG TAB PO SCH (10:32)
[2021-02-03] MEDS: polyethylene glycoL 3350 17 GM POWD.PACK PO SCH (10:32)
[2021-02-03] MEDS: ALPRAZolam 0.5 MG TAB PO PRN ×3 (10:32→20:50)
--- NOTE | 2021-02-03 10:43 | P.PN ---
Subjective Progress Note Date: 02/03/21 80-year-old female patient, known history of COPD, hospital for an acute COPD exacerbation worsening shortness of breath. The patient has advanced COPD at baseline with an FEV1 of 51% of predicted. She has undergone a combination of Symbicort and Spiriva and albuterol nebulized treatment are necessary basis. She is a chronic smoker. She is fully vaccinated for COVID-19. She comes into the hospital because of acute dyspnea cough chest tightness or wheezing.no angina. No palpitations. The white cell count is at 8.7 and the patient has a hemoglobin of 13.2, normal coagulation profile, sodium is at 135, BUN is at 19 with a creatinine of 0.6. Electrolytes are normal, troponins were negative at 0.01. ProBNP levelis at 623.COVID-19 testing was negative. The patient underwent an EKG that showed a normal sinus rhythm. There was evidence of sinus arrhythmia with a short [place] interval and premature atrial complexes.the chest x- rays consistent with COPD. Borderline heart size. There is mild pulmonary vascular7 On today's evaluation of 02/03/2021., the patient is feeling slightly better. No new complaints. Still bronchospastic and wheezy. Remains on a combination of bronchodilators steroids. Echocardiogram is in progress.. She is awake and alert 70 CO2 narcosis this point in time. No angina. No palpitations. Objective - Vital Signs Vital signs: Vital Signs Temp 98.2 F 02/03/21 08:38 Pulse 100 02/03/21 08:55 Resp 19 02/03/21 09:01 BP 148/63 02/03/21 08:38 Pulse Ox 97 02/03/21 08:38 Intake & Output 02/02/21 02/03/21 02/03/21 18:59 06:59 18:59 Intake Total 180 Balance 180 Weight 51.256 kg Intake: Oral 180 Other: # Voids 1 - Exam GENERAL EXAM: Frail, cachectic. Alert, fairly comfortable in no apparent d istress. HEAD: Normocephalic. EYES: Normal reaction of pupils, equal size. NOSE: Clear with pink turbinates. THROAT: No erythema or exudates. NECK: No masses, no JVD. CHEST: No chest wall deformity. LUNGS: Equal air entry with bilateral end expiratory wheeze. Diminished.. CVS: S1 and S2 normal with no audible murmur, regular rhythm. ABDOMEN: No hepatosplenomegaly, normal bowel sounds, no guarding or rigidity. SPINE: Kyphoscoliosis SKIN: No rashes CENTRAL NERVOUS SYSTEM: No focal deficits, tone is normal in all 4 extremities. EXTREMITIES: There is no peripheral edema. No clubbing, no cyanosis. Peripheral pulses are intact. - Labs CBC & Chem 7: 02/02/21 11:30 02/02/21 11:30 Labs: Abnormal Lab Results - Last 24 Hours (Table) 02/02/21 02/02/21 Range/Units 11:30 11:30 Neutrophils # 7.9 H (1.3-7.7) k/uL Lymphocytes # 0.4 L (1.0-4.8) k/uL Sodium 135 L (137-145) mmol/L Carbon Dioxide 34 H (22-30) mmol/L BUN 19 H (7-17) mg/dL Glucose 144 H (74-99) mg/dL Total Protein 6.0 L (6.3-8.2) g/dL Albumin 3.4 L (3.5-5.0) g/dL Assessment and Plan Plan: Impression: 1 Acute exacerbation of chronic obstructive pulmonary disease, no evidence of pneumonia. COVID-19 testing is negative the patient has been vaccinated for COVID-19 2 Acute hypoxic respiratory failure secondary to above. 3 previous history of colectomy with colostomy secondary to rectovaginal fistula repair with previous frequent urinary tract infections and diverticular disease. 4 Coronary artery disease, currently inactive and stable. Most recent cardiac catheterization revealed nonocclusive disease. 5 Hypertension. 6 Hyperlipidemia. 7 History of chronic tobacco dependence. 8 Breast cancer with his left mastectomy. 9 Osteoporosis. Plan slightly improved compared to yesterday.\ We'll continue with same treatment for now Proceed with an echocardiogram to assess LV function DuoNeb nebulized treatments around the clock along with IV Solu Medrol 60 mg every 6 hours supplement oxygen to maintain a saturation above 90% Lovenox 40 mg subcu 40 prophylaxis Smoking cessation counseling Resume all medications We'll continue to follow
[2021-02-03] MEDS ORDERED: ACETAMINOPHEN TAB 325 MG TAB PO PRN (12:30)
[2021-02-03] MEDS ORDERED: IBUPROFEN 600 MG TAB PO PRN (12:31)
--- NOTE | 2021-02-03 12:41 | ECHOF ---
Referral Reason:LVF MEASUREMENTS -------- HEIGHT: 152.4 cm WEIGHT: 51.3 kg BP: 148/63 IVSd: 1.0 cm (0.6 - 1.1) LVIDd: 3.6 cm (3.9 - 5.3) LVPWd: 1.0 cm (0.6 - 1.1) EDV(Teich): 55 ml IVSs: 1.3 cm LVIDs: 2.4 cm LVPWs: 1.3 cm %IVS Thck: 28 % ESV(Teich): 21 ml EF(Teich): 61 % %FS: 32 % SV(Teich): 33 ml LA Diam: 2.5 cm (2.7 - 3.8) RVIDd: 2.6 cm (< 3.3) IVC: 18.46 mm LALs A4C: 4.5 cm LAAs A4C: 12.8 cm LAESV A-L A4C: 31 ml LAESV MOD A4C: 28 ml LALs A2C: 5.3 cm LAAs A2C: 14.1 cm LAESV A-L A2C: 32 ml LAESV MOD A2C: 30 ml LAESV(A-L): 35 ml LAESV Index (A-L): 23.47 ml/m Ao Diam: 2.8 cm (2.0 - 3.7) AV Cusp: 1.9 cm (1.5 - 2.6) EPSS: 0.7 cm MV E Kendall: 0.97 m/s MV DecT: 220 ms MV Dec Jack: 4.4 m/s MV A Kendall: 1.19 m/s MV E/A Ratio: 0.81 MV PHT: 64 ms AV Vmax: 1.40 m/s AV maxP.80 mmHg TR Vmax: 2.72 m/s TR maxP.51 mmHg RAP: 5.00 mmHg RVSP: 34.51 mmHg MV EF SLOPE: 26.37 mm/s (70 - 150) MV EXCURSION: 13.54 mm (> 18.000) FINDINGS -------- Sinus rhythm. This was a technically adequate study. The left ventricular size is normal. Left ventricular wall thickness is normal. Overall left vent ricular systolic function is normal with, an EF between 60 - 65 %. The right ventricle is normal in size. Normal LA size by volume 22+/-6 ml/m2. The right atrium is normal in size. Interatrial and interventricular septum intact. There is mild aortic valve sclerosis. Mild mitral annular calcification present. There is trace mitral regurgitation. Mild tricuspid regurgitation present. There is mild pulmonary hypertension. The right ventricular systolic pressure, as measured by Doppler, is 34.51mmHg. Trace/mild (physiologic) pulmonic regurgitation. The aortic root size is normal. Normal inferior vena cava with normal inspiratory collapse consistent with estimated right atrial pre ssure of 5 mmHg. There is no pericardial effusion. CONCLUSIONS -------- 1. The left ventricular size is normal. 2. Left ventricular wall thickness is normal. 3. Overall left ventricular systolic function is normal with, an EF between 60 - 65 %. 4. There is mild aortic valve sclerosis. 5. Mild mitral annular calcification present. 6. There is trace mitral regurgitation. 7. Mild tricuspid regurgitation present. 8. There is mild pulmonary hypertension. 9. The right ventricular systolic pressure, as measured by Doppler, is 34.51mmHg. 10. Trace/mild (physiologic) pulmonic regurgitation. 11. Normal inferior vena cava with normal inspiratory collapse consistent with estimated right atrial pressure of 5 mmHg. 12. There is no pericardial effusion. CHURCH WORKER: Heena Gomez RDCS
--- NOTE | 2021-02-03 13:13 | P.HPIM ---
History of Present Illness H&P Date: 02/03/21 HISTORY [id number] female patient of Dr. Alejandro with a previous medical history significant for coronary artery disease status post left heart catheterization with the left heart catheterization that was done in September 2014 that showed ostial lesion of the diagonal branch and mild disease of the RCA, normal ejection fraction, hypertension and hypertensive cardiovascular disease with left ventricular hypertrophy, chronic tobacco use and dependence with chron ic obstructive pulmonary disease, chronic hypoxic respiratory failure on home O2, GERD, rectovaginal fistula repair, colon resection and colostomy placement done at [facility]. Patient states that she has been following with Dr. Smith and has had increasing shortness of breath for the past month off and on. She started antibiotics on Saturday and she is on chronic prednisone at 10 mg every day, O2 at 3-1/2 L [id number]. She has been utilizing her nebulizer 4 times daily for most of the month. She continues to have tightness and wheezing and shortness of breath. She denies having any lower extremity edema. She denies any history of DVT or PE in the past. Patient came into [facility] emergency center with the above concerns. Patient is afebrile, heart rate 60-107, blood pressure 144/54, pulse ox 98%. CBC was unremarkable. Sodium 135, potassium 4.2, chloride 98, CO2 34, BUN 19 and creatinine 0.68. Blood sugar 144. Liver function tests were within normal limits. Lactic acid 1.7. Troponin negative. Probe BNP 623. Coronavirus PCR not detected. Chest x-ray reveals COPD, borderline heart size. Vascular interstitial prominence. Correlate to exclude mild pulmonary vascular congestion. EKG was a sinus rhythm, sinus arrhythmia with no acute ST changes. Echocardiogram reveals EF of 60-65%, trace mitral regurgitation, mild tricuspid regurgitation, mild pulmonary hypertension. Patient was started on DuoNeb treatments, Solu-Medrol IV, and placed in the observation unit and consult with pulmonary medicine requested. REVIEW OF SYSTEMS Constitutional: No fever, no chills, no night sweats. No weight change. No weakness, fatigue or lethargy. No daytime sleepiness. EENT: No headache. No blurred vision or double vision, no loss of vision. No loss of Hearing, no ringing in the ears, no dizziness. No nasal drainage or congestion. No epistaxis. No sore throat. Lungs: Reports shortness of breath, Reports cough, Reports sputum production. Reports wheezing. Cardiovascular: No chest pain, no lower extremity edema. No palpitations. No paroxysmal nocturnal dyspnea. No orthopnea. No lightheadedness or dizziness. No syncopal episodes. Abdominal: No abdominal pain. No nausea, vomiting. No diarrhea. No constipation. No bloody or tarry stools. No loss of appetite. Genitourinary: No dysuria, increased frequency, urgency. No urinary retention. Musculoskeletal: No myalgias. No muscle weakness, no gait dysfunction, no frequent falls. No back pain. No neck pain. Integumentary: No wounds, no lesions. No rash or pruritus. No unusual bruising. No change in hair or nails. Neurologic: No aphasia. No facial droop. No change in mentation. No head injury. No headache. No paralysis. No paresthesia. Psychiatric: No depression. No anxiety. No mood swings. Endocrine: No abnormal blood sugars. No weight change. No excessive sweating or thirst. No cold intolerance. SOCIAL HISTORY Patient started smoking in 1960 1 pack per day and quit 2019. 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 She is . She has grown children in the area. FAMILY HISTORY Father is from COPD. Mother from stroke with history of hypertension and age 91. Patient has a brother with history of cancer and myocardial infarction. Patient has a sister with metastatic breast cancer and has from this. Children have no major medical problems. PHYSICAL EXAMINATION Gen: This is a frail appearing 80-year-old female. Patient is resting in bed with mild accessory muscle usage with movement in bed. Currently on nasal cannula oxygen. HEENT: Head is atraumatic, normocephalic. Pupils equal, round. Sclerae is anicteric. NECK: Supple. No JVD. No lymphadenopathy. No thyromegaly. LUNGS: Expiratory wheezing bilaterally Mildintercostal retractions. HEART: Regular rate and rhythm. Systolic murmur. ABDOMEN: Soft. Bowel sounds are present. No masses. No tenderness. EXTREMITIES: No pedal edema. No calf tenderness. NEUROLOGICAL: Patient is awake, alert and oriented x3. Cranial nerves 2 through 12 are grossly intact. ASSESSMENT AND PLAN 1. Acute COPD exacerbation. Continue DuoNeb treatments every 6 hours and as needed, Pulmicort 1 mg twice daily, Solu-Medrol 60 mg IV every [address] Chris conte. 2. History of rectal vaginal fistula, repaired with colon resection and colostomy placement done at [facility], stable. 3. History of coronary artery disease. Stable at this time. 4. Hypertension and hypertensive cardiovascular disease. Continue losartan 100 mg twice daily, continue hydrochlorothiazide 12.5 mg daily. 5. Hyperlipidemia. Low-cholesterol diet. 6. GERD. Continue current Protonix 40 mg orally once every day. 7. Osteoarthritis. Continue meloxicam 15 mg orally once every day. 8. History of tobacco use and dependence. Lovenox 30 mg subcu daily 9. Osteoporosis. Stable. 10. DVT prophylaxis. Heparin subcutaneously every 12 hours. 11. GI prophylaxis. On Protonix 40 mg orally once every day. 10. COVID-19 testing negative. Patient has been hospitalized during a pandemic. Patient will be admitted to the hospital for a minimum of 2 night stay. DISCHARGE PLAN Home. Impression and plan of care have been directed as dictated by the signing physician. Keren Daniels nurse practitioner acting as scribe for signing physician. Past Medical History Past Medical History: Asthma, Coronary Artery Disease (CAD), Cancer, COPD, GERD/Reflux, Hypertension, Osteoarthritis (OA), Pneumonia, Respiratory Disorder Additional Past Medical History / Comment(s): Other hx: L breast cancer with left mastectomy, diverticulosis/diverticular complications and rectovaginal fistula status post fistula repair, colon resection and colostomy placement at [facility], irritable bowel syndrome, peptic ulcer disease, generalized arthritis-multiple joints, leg cramps, frequent UTIs, migraines in the past, bronchitis, allergic rhinitis. 3.5L oxygen via NC History of Any Multi-Drug Resistant Organisms: None Reported Past Surgical History: Adenoidectomy, Appendectomy, Bladder Surgery, Bowel Resection, Cholecystectomy, Heart Catheterization, Hysterectomy, Orthopedic Surgery, Tonsillectomy Additional Past Surgical History / Comment(s): 09/21/14 cardiac cath with disease-treated medically, cataracts removed bilaterally with lens implants, rt rotator cuff, juan m carpal tunnel, bladder suspension, rectocele repair, hemorrh oidectomy, colonoscopies, camera endoscopy, EGD, left mastectomy , vaginal rectal fistula repair, bowel resection and colostomy placement Past Anesthesia/Blood Transfusion Reactions: No Reported Reaction Additional Past Anesthesia/Blood Transfusion Reaction / Comment(s): Pt is claustrophobic. Past Psychological History: Anxiety Additional Psychological History / Comment(s): Pt resides at [facility]. She is independent. She uses no assistive device. She drives. She has a nebulizer. Her daughter does the grocery shopping. She has a little anxiety which she occasionally uses xanax with good results. She is claustrophobic. Smoking Status: Former smoker Past Alcohol Use History: None Reported Additional Past Alcohol Use History / Comment(s): Patient started smoking in 1960 1 pack per day and quit 2 weeks ago. 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 She is . She has grown children in the area. Past Drug Use History: None Reported - Past Family History Father Family Medical History: COPD Additional Family Medical History / Comment(s): Father is . Mother Family Medical History: CVA/TIA, Hypertension Additional Family Medical History / Comment(s): at age 91 Brother(s) Family Medical History: Cancer, Myocardial Infarction ([place]) Daughter(s) Family Medical History: No Reported History Son(s) Family Medical History: No Reported History Sister(s) Family Medical History: Cancer Additional Family Medical History / Comment(s): Sister had metastatic breast cancer and is . Medications and Allergies Home Medications Medication Instructions Recorded Confirmed Type Gabapentin [Neurontin] 100 mg PO TID PRN 09/17/14 02/02/21 History ALPRAZolam [Xanax] 1 mg PO TID PRN 06/16/15 02/02/21 History Prochlorperazine [Compazine] 10 mg PO TID PRN #30 tab 06/18/15 02/02/21 Rx Omeprazole [PriLOSEC] 20 mg PO DAILY 03/06/16 02/02/21 History Dicyclomine [Bentyl] 10 mg PO BID 11/12/16 02/02/21 History Tiotropium [place] [Spiriva] 1 cap INHALATION RT-DAILY 11/12/16 02/02/21 History Albuterol Nebulized [Ventolin 2.5 mg INHALATION RT-QID 03/10/18 02/02/21 History Nebulized] Celecoxib [CeleBREX] 200 mg PO DAILY 01/22/19 02/02/21 History Losartan Potassium 100 mg PO BID 01/22/19 02/02/21 History Albuterol Sulfate [Proair Hfa] 2 puff INHALATION RT-QID PRN 02/02/21 02/02/21 History Benzonatate [Tessalon Perles] 100 mg PO TID PRN 02/02/21 02/02/21 History Budesonide/Formoterol Fumarate 2 puff INHALATION RT-BID 02/02/21 02/02/21 History [Symbicort 160-4.5 Mcg Inhaler] Fluticasone Nasal [place] [Flonase 2 spr EA NOSTRIL DAILY 02/02/21 02/02/21 Hi story Nasal [place]icks] Ipratropium Nebulized [Atrovent 0.5 mg INHALATION RT-QID 02/02/21 02/02/21 History Nebulized 0.2 MG/ML] Letrozole [Femara] 2.5 mg PO DAILY 02/02/21 02/02/21 History hydroCHLOROthiazide [Hydrodiuril] 12.5 mg PO DAILY 02/02/21 02/02/21 History predniSONE See Taper PO DAILY 02/02/21 02/02/21 History Allergies Allergy/AdvReac Type Severity Reaction Status Date / Time aspirin AdvReac Nausea Verified 02/02/21 14:22 codeine AdvReac Nausea Verified 02/02/21 14:22 Iodinated Contrast Media AdvReac Vomiting Verified 02/02/21 14:22 [Iodinated Contrast Media - IV Dye] Physical Exam Vitals: Vital Signs Temp Pulse Pulse Resp BP BP BP 02/03/21 09:01 19 02/03/21 08:55 100 02/03/21 08:41 100 02/03/21 08:38 98.2 F 76 19 148/63 02/03/21 07:00 98.2 F 76 148/63 02/03/21 02:40 76 16 02/03/21 02:21 88 02/03/21 02:12 85 02/03/21 01:39 97.9 F 76 16 139/75 02/02/21 19:44 85 16 02/02/21 19:20 98.1 F 85 16 136/62 02/02/21 18:23 88 02/02/21 18:12 84 02/02/21 15:50 98.3 F 62 18 124/62 02/02/21 14:27 89 20 168/75 02/02/21 13:26 95 02/02/21 13:16 107 H 02/02/21 11:45 86 22 149/52 02/02/21 10:57 97.9 F 60 23 144/54 Pulse Ox 02/03/21 09:01 02/03/21 08:55 02/03/21 08:41 02/03/21 08:38 97 02/03/21 07:00 97 02/03/21 02:40 02/03/21 02:21 02/03/21 02:12 02/03/21 01:39 99 02/02/21 19:44 02/02/21 19:20 96 02/02/21 18:23 02/02/21 18:12 02/02/21 15:50 96 02/02/21 14:27 98 02/02/21 13:26 02/02/21 13:16 02/02/21 11:45 99 02/02/21 10:57 98 Intake and Output 02/02/21 02/03/21 02/03/21 22:59 06:59 14:59 Intake Total 180 Balance 180 Intake: Oral 180 Other: # Voids 1 1 Weight 51.256 kg Results CBC & Chem 7: 02/02/21 11:30 02/02/21 11:30 Labs: Abnormal Lab Results - Last 24 Hours (Table) 02/02/21 02/02/21 Range/Units 11:30 11:30 Neutrophils # 7.9 H (1.3-7.7) k/uL Lymphocytes # 0.4 L (1.0-4.8) k/uL Sodium 135 L (137-145) mmol/L Carbon Dioxide 34 H (22-30) mmol/L BUN 19 H (7-17) mg/dL Glucose 144 H (74-99) mg/dL Total Protein 6.0 L (6.3-8.2) g/dL Albumin 3.4 L (3.5-5.0) g/dL Thrombosis Risk Factor Assmnt - Choose All That Apply Any of the Below Risk Factors Present?: Yes Each Factor Represents 1 point: Abnormal pulmonary function (COPD) Each Risk Factor Represents 3 Points: Age 75 years or older Other congenital or acquired thrombophilia - If yes, enter type in comment: No Thrombosis Risk Factor Assessment Total Risk Factor Score: 4 Thrombosis Risk Factor Assessment Level: Moderate Risk
--- NOTE | 2021-02-03 14:15 | NM ---
EXAMINATION TYPE: NM pul vent and perfuse DATE OF EXAM: 02/03/2021 COMPARISON: NONE HISTORY: JADE, elevated ddimer, r/u PE TECHNIQUE: Utilizing inhalation of 67.6 mCi Tc 99m DTPA aerosol and intravenous injection of 4.92 mC i of Tc 99m MAA, ventilation and perfusion images are acquired post injection in multiple projections . FINDINGS: Moderate Central accumulation of radiotracer on ventilation study. Perfusion portion of the study als o demonstrates areas of matched perfusion ventilation defect. IMPRESSION: Intermediate probability for pulmonary embolism.
[2021-02-03] MEDS: IPRATROPIUM-ALBUTEROL 3 ML NEB INHALATION SCH ×2 (15:34→20:11)
[2021-02-03] MEDS: BUDESONIDE 1 MG/2 ML NEBU INHALATION SCH (20:11)
[2021-02-03] MEDS: DICYCLOMINE 10 MG CAP PO SCH (20:50)
[2021-02-04] MEDS: methylPREDNISolone SOD SUCCI 125 MG/2 ML VIAL IV SCH ×5 (00:27→21:55)
[2021-02-04] MEDS: IPRATROPIUM-ALBUTEROL 3 ML NEB INHALATION PRN ×2 (02:42→20:24)
[2021-02-04] MEDS: BENZONATATE 100 MG CAP PO PRN (05:58)
[2021-02-04] MEDS: polyethylene glycoL 3350 17 GM POWD.PACK PO SCH (07:24)
[2021-02-04] MEDS: PANTOPRAZOLE 40 MG TABLET PO SCH (07:26)
[2021-02-04] MEDS: IPRATROPIUM-ALBUTEROL 3 ML NEB INHALATION SCH ×4 (08:11→18:19)
[2021-02-04] MEDS: BUDESONIDE 1 MG/2 ML NEBU INHALATION SCH ×2 (08:12→19:11)
[2021-02-04] MEDS: MELOXICAM 7.5 MG TAB PO SCH (09:04)
[2021-02-04] MEDS: LETROZOLE 2.5 MG TAB PO SCH (09:06)
[2021-02-04] MEDS: FLUCONAZOLE 100 MG TAB PO SCH (09:06)
[2021-02-04] MEDS: DICYCLOMINE 10 MG CAP PO SCH ×2 (09:06→21:55)
[2021-02-04] MEDS: FLUTICASONE 50MCG/SPRAY NASAL 16GM EA NOSTRIL SCH (09:07)
[2021-02-04] MEDS: LOSARTAN 50 MG TAB PO SCH ×2 (09:07→21:54)
[2021-02-04] MEDS: ENOXAPARIN 30 MG/0.3 ML SYRINGE SQ SCH (09:09)
[2021-02-04] MEDS: ALPRAZolam 0.5 MG TAB PO PRN ×3 (09:41→21:55)
[2021-02-04] MEDS: hydroCHLOROthiazide 12.5 MG CAP PO SCH (09:41)
[2021-02-04] MEDS: guaiFENesin 600 MG TABLET.ER PO SCH ×2 (10:20→21:54)
--- NOTE | 2021-02-04 12:56 | P.PN ---
Subjective Progress Note Date: 02/04/21 This is a 80-year-old female patient of Dr. Aleajndro with a previous medical history significant for coronary artery disease status post left heart catheterization with the left heart catheterization that was done in September 2014 that showed ostial lesion of the diagonal branch and mild disease of the RCA, normal ejection fraction, hypertension and hypertensive cardiovascular disease with left ventricular hypertrophy, chronic tobacco use and dependence with chronic obstructive pulmonary disease, chronic hypoxic respiratory failure on home O2, GERD, rectovaginal fistula repair, colon resection and colostomy placement done at [facility]. Patient states that she has been following with Dr. Smith and has had increasing shortness of breath for the past month off and on. She started antibiotics on Saturday and she is on chronic prednisone at 10 mg every day, O2 at 3-1/2 L [id number]. She has been utilizing her nebulizer 4 times daily for most of the month. She continues to have tightness and wheezing and shortness of breath. She denies having any lower extremity edema. She denies any history of DVT or PE in the past. Patient came into [facility] emergency center with the above concerns. Patient is afebrile, heart rate 60-107, blood pressure 144/54, pulse ox 98%. CBC was unremarkable. Sodium 135, potassium 4.2, chloride 98, CO2 34, BUN 19 and creatinine 0.68. Blood sugar 144. Liver function tests were within normal limits. Lactic acid 1.7. Troponin negative. Probe BNP 623. Coronavirus PCR not detected. Chest x-ray reveals COPD, borderline heart size. Vascular interstitial prominence. Correlate to exclude mild pulmonary vascular congestion. EKG was a sinus rhythm, sinus arrhythmia with no acute ST changes. Echocardiogram reveals EF of 60-65%, trace mitral regurgitation, mild tricuspid regurgitation, mild pulmonary hypertension. Patient was started on DuoNeb treatments, Solu-Medrol IV, and placed in the observation unit and consult with pulmonary medicine requested. 02/04: Patient evaluated today, states overall she is feeling the same . She still does have expiratory wheezing on exam today. Mucinex and Tessalon were added. Patient encouraged to do her incentive spirometer, incentive spirometer is at the bedside. Patient continues with updraft treatments along with budesonide and Solu-Medrol 60 mg every 6 hours. Vital signs are stable she is afebrile with a temperature 98.3, heart rate is 88, respiratory rate 18, blood pressure 148/65, she's 98% on 3 L via nasal cannula. Objective - Vital Signs Vital signs: Vital Signs Temp 98.3 F 02/04/21 07:00 Pulse 92 02/04/21 11:20 Resp 18 02/04/21 07:00 BP 148/65 02/04/21 07:00 Pulse Ox 98 02/04/21 07:00 Intake & Output 02/03/21 02/04/21 02/04/21 18:59 06:59 18:59 Intake Total 118 Balance 118 Intake: Oral 118 Other: Voiding Method Toilet Toilet Bedside Commode Bedside Commode # Voids 2 2 - Constitutional General appearance: Present: average body habitus, cooperative, no acute distress - EENT Eyes: Present: EOMI, PERRLA, normal appearance ENT: Present: hearing grossly normal, normal oropharynx - Neck Neck: Present: normal ROM. Absent: lymphadenopathy, rigidity, stridor, thyromegaly - Respiratory Respiratory: bilateral: diminished, wheezing - Cardiovascular Rhythm: regular Heart sounds: normal: S1, S2 - Gastrointestinal General gastrointestinal: Present: normal bowel sounds, soft. Absent: distended, hepatomegaly, organomegaly, tenderness - Neurologic Neurologic: Present: CNII-XII intact. Absent: focal deficits - Musculoskeletal Musculoskeletal: Present: gait normal, generalized weakness, strength equal bilaterally - Psychiatric Psychiatric: Present: A&O x's 3, appropriate affect, intact judgment & insight - Labs CBC & Chem 7: 02/02/21 11:30 02/02/21 11:30 Assessment and Plan Plan: 1. Acute COPD exacerbation. Continue DuoNeb treatments every 6 hours and as needed, Pulmicort 1 mg twice daily, Solu-Medrol 60 mg IV every [address] Chris conte. 2. History of rectal vaginal fistula, repaired with colon resection and colostomy placement done at [facility], [facility]. 3. History of coronary artery disease. Stable at this time. 4. Hypertension and hypertensive cardiovascular disease. Continue losartan 100 mg twice daily, continue hydrochlorothiazide 12.5 mg daily. 5. Hyperlipidemia. Low-cholesterol diet. 6. GERD. Continue current Protonix 40 mg orally once every day. 7. Osteoarthritis. Continue meloxicam 15 mg orally once every day. 8. History of tobacco use and dependence. Lovenox 30 mg subcu daily 9. Osteoporosis. Stable. 10. DVT prophylaxis. Heparin subcutaneously every 12 hours. 11. GI prophylaxis. On Protonix 40 mg orally once every day. 10. COVID-19 testing negative. Patient has been hospitalized during a pandemic. Patient will be admitted to the hospital for a minimum of 2 night stay. The above impression and plan of care have been discussed and directed by signing physician. Elizabeth Osborn nurse practitioner acting as scribe for signing physician.
--- NOTE | 2021-02-04 13:00 | P.PN ---
Subjective Progress Note Date: 02/04/21 The patient is seen today 02/04/2021 in follow-up on the regular medical floor. She is currently sitting up in bed. Awake and alert in no acute distress. Eating lunch. No worsening shortness of breath, cough or congestion. Maintaining good O2 saturations in the 90s on 3 L/m per nasal cannula. VQ scan that was ordered by medicine yesterday showed intermediate probability of pulmonary embolism. Objective - Vital Signs Vital signs: Vital Signs Temp 98.3 F 02/04/21 07:00 Pulse 92 02/04/21 11:20 Resp 18 02/04/21 07:00 BP 148/65 02/04/21 07:00 Pulse Ox 98 02/04/21 07:00 Intake & Output 02/03/21 02/04/21 02/04/21 18:59 06:59 18:59 Intake Total 118 Balance 118 Intake: Oral 118 Other: Voiding Method Toilet Toilet Bedside Commode Bedside Commode # Voids 2 2 - Exam GENERAL EXAM: Alert, pleasant 80-year-old, sitting up in bed, on 3 L nasal cannula, comfortable in no apparent distress. HEAD: Normocephalic. EYES: Normal reaction of pupils, equal size. NOSE: Clear with pink turbinates. THROAT: No erythema or exudates. NECK: No masses, no JVD. CHEST: No chest wall deformity. LUNGS: Equal air entry with bilateral end expiratory wheeze, diminished. CVS: S1 and S2 normal with no audible murmur, regular rhythm. ABDOMEN: No hepatosplenomegaly, normal bowel sounds, no guarding or rigidity. SPINE: No scoliosis or deformity SKIN: No rashes CENTRAL NERVOUS SYSTEM: No focal deficits, tone is normal in all 4 extremities. EXTREMITIES: There is no peripheral edema. No clubbing, no cyanosis. Peripheral pulses are intact. - Labs CBC & Chem 7: 02/02/21 11:30 02/02/21 11:30 Assessment and Plan Assessment: 1 Acute exacerbation of chronic obstructive pulmonary disease. No clear evidence of pneumonia. No evidence of PE. VQ scan of no value. COVID-19 screen negative. 2 Acute on chronic hypoxic respiratory failure secondary to above 3 Previous history of colectomy with colostomy secondary to rectovaginal fistula status post repair. 4 Coronary artery disease 5 Hypertension 6 Hyperlipidemia 7 History of chronic tobacco dependence 8 History of breast cancer with left mastectomy 9 Osteoporosis Plan: The patient was seen and evaluated by Dr. Perez She is improved from the pulmonary standpoint Continue the current treatment plan Treat the FiO2 as tolerated Increase her activity as tolerated I, the cosigning physician, performed a history and physical examination of the patient. Lungs sounds with bilateral end expiratory wheeze, diminished. Maintaining O2 saturations in the 90s on 3 L/m nasal cannula. I discussed the assessment and plan of care with my nurse. Sumanth. I attest to the above note as dictated by her.
[2021-02-05] MEDS: IPRATROPIUM-ALBUTEROL 3 ML NEB INHALATION PRN ×3 (00:03→23:29)
[2021-02-05] MEDS: methylPREDNISolone SOD SUCCI 125 MG/2 ML VIAL IV SCH ×4 (06:55→23:31)
[2021-02-05] MEDS: guaiFENesin 600 MG TABLET.ER PO SCH ×2 (07:11→21:37)
[2021-02-05] MEDS: PANTOPRAZOLE 40 MG TABLET PO SCH (07:11)
[2021-02-05] MEDS: LOSARTAN 50 MG TAB PO SCH ×2 (07:11→21:37)
[2021-02-05] MEDS: ENOXAPARIN 30 MG/0.3 ML SYRINGE SQ SCH (07:12)
[2021-02-05] MEDS: LETROZOLE 2.5 MG TAB PO SCH (07:12)
[2021-02-05] MEDS: FLUTICASONE 50MCG/SPRAY NASAL 16GM EA NOSTRIL SCH (07:12)
[2021-02-05] MEDS: hydroCHLOROthiazide 12.5 MG CAP PO SCH (07:13)
[2021-02-05] MEDS: FLUCONAZOLE 100 MG TAB PO SCH (07:13)
[2021-02-05] MEDS: MELOXICAM 7.5 MG TAB PO SCH (07:13)
[2021-02-05] MEDS: DICYCLOMINE 10 MG CAP PO SCH ×2 (07:13→21:37)
[2021-02-05] MEDS: polyethylene glycoL 3350 17 GM POWD.PACK PO SCH (07:13)
[2021-02-05] MEDS: BUDESONIDE 1 MG/2 ML NEBU INHALATION SCH ×2 (07:59→19:27)
[2021-02-05] MEDS: IPRATROPIUM-ALBUTEROL 3 ML NEB INHALATION SCH ×5 (07:59→19:27)
[2021-02-05] MEDS: ALPRAZolam 0.5 MG TAB PO PRN ×3 (09:33→21:37)
--- NOTE | 2021-02-05 10:43 | P.PN ---
Subjective This is a 80-year-old female patient of Dr. Alejandro with a previous medical history significant for coronary artery disease status post left heart catheterization with the left heart catheterization that was done in September 2014 that showed ostial lesion of the diagonal branch and mild disease of the RCA, normal ejection fraction, hypertension and hypertensive cardiovascular disease with left ventricular hypertrophy, chronic tobacco use and dependence with chronic obstructive pulmonary disease, chronic hypoxic respiratory failure on home O2, GERD, rectovaginal fistula repair, colon resection and colostomy placement done at [facility]. Patient states that she has been following with Dr. Smith and has had increasing shortness of breath for the past month off and on. She started antibiotics on Saturday and she is on chronic prednisone at 10 mg every day, O2 at 3-1/2 L [id number]. She has been utilizing her nebulizer 4 times daily for most of the month. She continues to have tightness and wheezing and shortness of breath. She denies having any lower extremity edema. She denies any history of DVT or PE in the past. Patient came into [facility] emergency center with the above concerns. Patient is afebrile, heart rate 60-107, blood pressure 144/54, pulse ox 98%. CBC was unremarkable. Sodium 135, potassium 4.2, chloride 98, CO2 34, BUN 19 and creatinine 0.68. Blood sugar 144. Liver function tests were within normal limits. Lactic acid 1.7. Troponin negative. Probe BNP 623. Co ronavirus PCR not detected. Chest x-ray reveals COPD, borderline heart size. Vascular interstitial prominence. Correlate to exclude mild pulmonary vascular congestion. EKG was a sinus rhythm, sinus arrhythmia with no acute ST changes. Echocardiogram reveals EF of 60-65%, trace mitral regurgitation, mild tricuspid regurgitation, mild pulmonary hypertension. Patient was started on DuoNeb treatments, Solu-Medrol IV, and placed in the observation unit and consult with pulmonary medicine requested. 02/04: Patient evaluated today, states overall she is feeling the same . She still does have expiratory wheezing on exam today. Mucinex and Tessalon were added. Patient encouraged to do her incentive spirometer, incentive spirometer is at the bedside. Patient continues with updraft treatments along with budesonide and Solu-Medrol 60 mg every 6 hours. Vital signs are stable she is afebrile with a temperature 98.3, heart rate is 88, respiratory rate 18, blood pressure 148/65, she's 98% on 3 L via nasal cannula. 02/05: Patient evaluated today, sitting up in bed awake and alert and she is in no acute distress. She reports she is feeling slightly better. Wheezing noted to be less today and air entry is better and seems to be improving. She continues on updrafts, budesonide, and Solu-Medrol 60 mg every 6 hours. Incentive spirometer ordered. Objective - Vital Signs Vital signs: Vital Signs Temp 98.3 F 02/05/21 07:00 Pulse 54 L 02/05/21 07:00 Resp 24 02/05/21 08:00 BP 169/64 02/05/21 07:00 Pulse Ox 98 02/05/21 07:00 Intake & Output 02/04/21 02/05/21 02/05/21 18:59 06:59 18:59 Intake Total 360 Output Total 450 Balance -90 Intake: Oral 360 Output: Urine 450 Other: Voiding Method Toilet Toilet Toilet Bedside Commode Bedside Commode Bedside Commode # Voids 3 - Exam - Constitutional General appearance: Present: average body habitus, cooperative, no acute distress - EENT Eyes: Present: EOMI, PERRLA, normal appearance ENT: Present: hearing grossly normal, normal oropharynx - Neck Neck: Present: normal ROM. Absent: lymphadenopathy, rigidity, stridor, thyromegaly - Respiratory Respiratory: bilateral: diminished, wheezing, better air entry - Cardiovascular Rhythm: regular Heart sounds: normal: S1, S2 - Gastrointestinal General gastrointestinal: Present: normal bowel sounds, soft. Absent: distended, hepatomegaly, organomegaly, tenderness - Neurologic Neurologic: Present: CNII-XII intact. Absent: focal deficits - Musculoskeletal Musculoskeletal: Present: gait normal, generalized weakness, strength equal bilaterally - Psychiatric Psychiatric: Present: A&O x's 3, appropriate affect, intact judgment & insight - Labs CBC & Chem 7: 02/02/21 11:30 02/02/21 11:30 Labs: Microbiology - Last 24 Hours (Table) 02/04/21 02:46 Gram Stain - Preliminary Sputum Sputum Culture - Preliminary Assessment and Plan Plan: 1. Acute COPD exacerbation. Continue DuoNeb treatments every 6 hours and as needed, Pulmicort 1 mg twice daily, Solu-Medrol 60 mg IV every [address] Chris conte. 2. History of rectal vaginal fistula, repaired with colon resection and colostomy placement done at [facility], [facility]. 3. History of coronary artery disease. Stable at this time. 4. Hypertension and hypertensive cardiovascular disease. Continue losartan 100 mg twice daily, continue hydrochlorothiazide 12.5 mg daily. 5. Hyperlipidemia. Low-cholesterol diet. 6. GERD. Continue current Protonix 40 mg orally once every day. 7. Osteoarthritis. Continue meloxicam 15 mg orally once every day. 8. History of tobacco use and dependence. Lovenox 30 mg subcu daily 9. Osteoporosis. Stable. 10. DVT prophylaxis. Heparin subcutaneously every 12 hours. 11. GI prophylaxis. On Protonix 40 mg orally once every day. 10. COVID-19 testing negative. Patient has been hospitalized during a pandemic. Patient will be admitted to the hospital for a minimum of 2 night stay. The above impression and plan of care have been discussed and directed by signing physician. Elizabeth Osborn nurse practitioner acting as scribe for signing physician.
--- NOTE | 2021-02-05 12:34 | P.PN ---
Subjective Progress Note Date: 02/05/21 On 02/05/2021 the patient is feeling well. No worsening in her respiratory status. She is improving slowly. She is on 3 L of oxygen by nasal cannula. She is aggressively using incentive spirometer. She remains on bronchodilators per she remains on steroids. No angina. No palpitation. No altered mentation. No signs of any CO2 narcosis. She is known to have COPD and she is demented on a combination of Spiriva and Symbicort and albuterol about treatments around the clock. She is a chronic smoker and she is fully vaccinated for COVID-19. Objective - Vital Signs Vital signs: Vital Signs Temp 98.3 F 02/05/21 07:00 Pulse 90 02/05/21 11:30 Resp 24 02/05/21 08:00 BP 169/64 02/05/21 07:00 Pulse Ox 98 02/05/21 07:00 Intake & Output 02/04/21 02/05/21 02/05/21 18:59 06:59 18:59 Intake Total 360 Output Total 450 Balance -90 Intake: Oral 360 Output: Urine 450 Other: Voiding Method Toilet Toilet Toilet Bedside Commode Bedside Commode Bedside Commode # Voids 3 - Exam GENERAL EXAM: Frail, cachectic. Alert, fairly comfortable in no apparent distress. HEAD: Normocephalic. EYES: Normal reaction of pupils, equal size. NOSE: Clear with pink turbinates. THROAT: No erythema or exudates. NECK: No masses, no JVD. CHEST: No chest wall deformity. LUNGS: Equal air entry with bilateral end expiratory wheeze. Diminished.. CVS: S1 and S2 normal with no audible murmur, regular rhythm. ABDOMEN: No hepatosplenomegaly, normal bowel sounds, no guarding or rigidity. SPINE: Kyphoscoliosis SKIN: No rashes CENTRAL NERVOUS SYSTEM: No focal deficits, tone is normal in all 4 extremities. EXTREMITIES: There is no peripheral edema. No clubbing, no cyanosis. Peripheral pulses are intact. - Labs CBC & Chem 7: 02/02/21 11:30 02/02/21 11:30 Labs: Microbiology - Last 24 Hours (Table) 02/04/21 02:46 Gram Stain - Preliminary Sputum Sputum Culture - Preliminary Assessment and Plan Plan: Impression: 1 Acute exacerbation of chronic obstructive pulmonary disease, no evidence of pneumonia. COVID-19 testing is negative the patient has been vaccinated for COVID-19, improving 2 Acute hypoxic respiratory failure secondary to above. 3 previous history of colectomy with colostomy secondary to rectovaginal fistula repair with previous frequent urinary tract infections and diverticular disease. 4 Coronary artery disease, currently inactive and stable. Most recent cardiac catheterization revealed nonocclusive disease. 5 Hypertension. 6 Hyperlipidemia. 7 History of chronic tobacco dependence. 8 Breast cancer with his left mastectomy. 9 Osteoporosis. Plan We'll continue with same treatment for now M was noted the patient has normal LV function. Clinically improving DuoNeb nebulized treatments around the clock along with IV Solu Medrol 60 mg every 6 hours supplement oxygen to maintain a saturation above 90% Lovenox 40 mg subcu 40 prophylaxis Smoking cessation counseling Resume all medications We'll continue to follow
[2021-02-06] MEDS: IPRATROPIUM-ALBUTEROL 3 ML NEB INHALATION PRN (04:31)
[2021-02-06] MEDS: methylPREDNISolone SOD SUCCI 125 MG/2 ML VIAL IV SCH (05:15)
[2021-02-06] MEDS: IPRATROPIUM-ALBUTEROL 3 ML NEB INHALATION SCH ×4 (07:56→20:16)
[2021-02-06] MEDS: BUDESONIDE 1 MG/2 ML NEBU INHALATION SCH ×3 (07:56→20:16)
[2021-02-06] MEDS: DICYCLOMINE 10 MG CAP PO SCH ×2 (08:31→20:31)
[2021-02-06] MEDS: hydroCHLOROthiazide 12.5 MG CAP PO SCH (08:31)
[2021-02-06] MEDS: FLUCONAZOLE 100 MG TAB PO SCH (08:31)
[2021-02-06] MEDS: LETROZOLE 2.5 MG TAB PO SCH (08:32)
[2021-02-06] MEDS: ALPRAZolam 0.5 MG TAB PO PRN ×2 (08:32→18:35)
[2021-02-06] MEDS: MELOXICAM 7.5 MG TAB PO SCH (08:32)
[2021-02-06] MEDS: ENOXAPARIN 30 MG/0.3 ML SYRINGE SQ SCH (08:32)
[2021-02-06] MEDS: guaiFENesin 600 MG TABLET.ER PO SCH ×2 (08:32→20:30)
[2021-02-06] MEDS: FLUTICASONE 50MCG/SPRAY NASAL 16GM EA NOSTRIL SCH (08:32)
[2021-02-06] MEDS: LOSARTAN 50 MG TAB PO SCH ×2 (08:32→20:30)
[2021-02-06] MEDS: PANTOPRAZOLE 40 MG TABLET PO SCH (08:32)
[2021-02-06] MEDS: polyethylene glycoL 3350 17 GM POWD.PACK PO SCH (08:33)
[2021-02-06] MEDS ORDERED: predniSONE 20 MG TAB PO SCH (09:00)
[2021-02-06 11:51] LABS: ALT 16 U/L (8-44); AST 16 U/L (13-35); African American GFR (CKD) 81.3 (60.0-200.0); Albumin 3.9 g/dL (3.8-4.9); Albumin/Globulin Ratio 2.29 (1.60-3.17); Alkaline Phosphatase 60 U/L (41-126); BUN/Creat Ratio 51.63 Ratio (12.00-20.00); Blood Urea Nitrogen 41.3 mg/dL (9.0-27.0); Carbon Dioxide 36.2 mmol/L (21.6-31.8); Chloride 97 mmol/L (96-109); Globulin 1.7 g/dL (1.6-3.3); Glucose 165 mg/dL (70-110); Non-African American GFR(CKD) 70.1 (60.0-200.0); Potassium 3.9 mmol/L (3.5-5.5); Sodium 143 mmol/L (135-145); Total Bilirubin <0.20 mg/dL (0.30-1.20); Total Protein 5.6 g/dL (6.2-8.2)
[2021-02-06 11:55] LABS: HCT 43.2 % (37.2-46.3); HGB 13.3 g/dL (12.0-15.0); MCHC 30.8 g/dL (32.0-37.0); MCV 94.1 fL (80.0-97.0); Mean Platelet Volume 9.7 fL (9.5-12.2); Platelet Count 238 X 10*3/uL (140-440); RBC 4.59 X 10*6/uL (4.10-5.20); RDW 13.6 % (11.5-14.5); WBC 8.12 X 10*3/uL (4.50-10.00)
--- NOTE | 2021-02-06 13:26 | P.PN ---
Subjective Progress Note Date: 02/06/21 Principal diagnosis: Acute exacerbation of COPD On 02/06/2021 patient seen in follow-up on medical surgical floor. She is feeling better, no significant wheezes on today's exam, lung sounds are diminished, and patient is still dyspneic with any exertion. Seems weak, but no acute distress, she remains on 4 L of oxygen pulse ox 93%. No acute events overnight, no worsening cough or dyspnea, no hemoptysis. Vital signs have remained stable. Afebrile. VQ scan showed intermediate probability for pulmonary embolism, or patient's clinical presentation is more consistent with acute exacerbation of COPD, and underlying pulmonary embolism is not likely. Objective - Vital Signs Vital signs: Vital Signs Temp 98.2 F 02/06/21 07:00 Pulse 70 02/06/21 11:35 Resp 16 02/06/21 07:00 BP 162/61 02/06/21 07:00 Pulse Ox 98 02/06/21 08:01 Intake & Output 02/05/21 02/06/21 02/06/21 18:59 06:59 18:59 Intake Total 240 Balance 240 Intake: Oral 240 Other: Voiding Method Toilet Toilet Toilet Bedside Commode Bedside Commode Bedside Commode # Voids 2 - Exam GENERAL EXAM: Alert, very pleasant, 80-year-old white female, on 4 L of oxygen, with a pulse ox of 93%, comfortable in no apparent distress. HEAD: Normocephalic/atraumatic. EYES: Normal reaction of pupils, equal size. Conjunctiva pink, sclera white. NOSE: Clear with pink turbinates. THROAT: No erythema or exudates. NECK: No masses, no JVD, no thyroid enlargement, no adenopathy. CHEST: No chest wall deformity. Symmetrical expansion. LUNGS: Equal air entry with diminished breath sounds bilaterally, with minimal wheezes CVS: Regular rate and rhythm, normal S1 and S2, no gallops, no murmurs, no rubs ABDOMEN: Soft, nontender. No hepatosplenomegaly, normal bowel sounds, no guarding or rigidity. EXTREMITIES: No clubbing, no edema, no cyanosis, 2+ pulses and upper and lower extremities. MUSCULOSKELETAL: Muscle strength and tone normal. SPINE: No scoliosis or deformity SKIN: No rashes CENTRAL NERVOUS SYSTEM: Alert and oriented -3. No focal deficits, tone is normal in all 4 extremities. PSYCHIATRIC: Alert and oriented -3. Appropriate affect. Intact judgment and insight. - Labs CBC & Chem 7: 02/06/21 07:51 02/06/21 07:51 Labs: Abnormal Lab Results - Last 24 Hours (Table) 02/06/21 02/06/21 Range/Units 07:51 07:51 MCHC 30.8 L (32.0-37.0) g/dL Carbon Dioxide 36.2 H (21.6-31.8) mmol/L BUN 41.3 H (9.0-27.0) mg/dL BUN/Creatinine Ratio 51.63 H (12.00-20.00) Ratio Glucose 165 H (70-110) mg/dL Total Bilirubin <0.20 L (0.30-1.20) mg/dL Total Protein 5.6 L (6.2-8.2) g/dL Microbiology - Last 24 Hours (Table) 02/04/21 02:46 Gram Stain - Final Sputum Sputum Culture - Final Assessment and Plan Plan: Assessment: #1. Acute exacerbation of chronic obstructive pulmonary disease, no clear evidence of pneumonia, no evidence of pulmonary embolism, VQ scan showed intermediate probability for pulmonary embolism however clinical presentation is more consistent with acute exacerbation of COPD and not picture of pulmonary embolism. VQ scan is of no value. COVID-19 screen was negative #2. Acute on chronic hypoxic respiratory failure secondary to the above #3. Previous history of colectomy with colostomy secondary to rectovaginal fistula status post repair #4. Coronary artery disease #5. Hypertension #6. Hyperlipidemia #7. History of chronic tobacco dependence #8. History of breast cancer with left mastectomy #9. Osteoporosis Plan: Continue current medical treatment Patient is slowly improving We will monitor her clinical progress in the next couple of days Increase activity as tolerated Decrease FiO2 as tolerated to maintain O2 saturations at or above 90% Patient definitely does not want to go to rehab after discharge I performed a history & physical examination of the patient and discussed their management with my nurse practitioner, Taylor Leslie. I reviewed the nurse practitioner's note and agree with the documented findings and plan of care. Lung sounds are positive for diminished breath sounds throughout the lung [place]. The findings and the impression was discussed with the patient. I attest to the documentation by the nurse practitioner. Time with Patient: Less than 30
--- NOTE | 2021-02-06 15:00 | P.PN ---
Subjective Progress Note Date: 02/06/21 HISTORY [id number] female patient of Dr. Alejandro with a previous medical history significant for coronary artery disease status post left heart catheterization with the left heart catheterization that was done in September 2014 that showed ostial lesion of the diagonal branch and mild disease of the RCA, normal ejection fraction, hypertension and hypertensive cardiovascular disease with left ventricular hypertrophy, chronic tobacco use and dependence with chronic obstructive pulmonary disease, chronic hypoxic respiratory failure on home O2, GERD, rectovaginal fistula repair, colon resection and colostomy placement done at [facility]. Patient states that she has been following with Dr. Smith and has had increasing shortness of breath for the past month off and on. She started antibiotics on Saturday and she is on chronic prednisone at 10 mg every day, O2 at 3-1/2 L [id number]. She has been utilizing her nebulizer 4 times daily for most of the month. She continues to have tightness and wheezing and shortness of breath. She denies having any lower extremity edema. She denies any history of DVT or PE in the past. Patient came into [facility] emergency center with the above concerns. Patient is afebrile, heart rate 60-107, blood pressure 144/54, pulse ox 98%. CBC was unremarkable. Sodium 135, potassium 4.2, chloride 98, CO2 34, BUN 19 and creatinine 0.68. Blood sugar 144. Liver function tests were within normal limits. Lactic acid 1.7. Troponin negative. Probe BNP 623. Coronavirus PCR not detected. Chest x-ray reveals COPD, borderline heart size. Vascular interstitial prominence. Correlate to exclude mild pulmonary vascular congestion. EKG was a sinus rhythm, sinus arrhythmia with no acute ST changes. Echocardiogram reveals EF of 60-65%, trace mitral regurgitation, mild tricuspid regurgitation, mild pulmonary hypertension. Patient was started on DuoNeb treatments, Solu-Medrol IV, and placed in the observation unit and consult with pulmonary medicine requested. 02/04: Patient evaluated today, states overall she is feeling the same . She still does have expiratory wheezing on exam today. Mucinex and Tessalon were added. Patient encouraged to do her incentive spirometer, incentive spirometer is at the bedside. Patient continues with updraft treatments along with budesonide and Solu-Medrol 60 mg every 6 hours. Vital signs are stable she is afebrile with a temperature 98.3, heart rate is 88, respiratory rate 18, blood pressure 148/65, she's 98% on 3 L via nasal cannula. 02/05: Patient evaluated today, sitting up in bed awake and alert and she is in no acute distress. She reports she is feeling slightly better. Wheezing noted to be less today and air entry is better and seems to be improving. She continues on updrafts, budesonide, and Solu-Medrol 60 mg every 6 hours. Incentive spirometer ordered. 02/06: Patient's breathing is slowly imrpoving. She is on Solumedrol at 60 mg every 6 hours which will be decreased to 40 mg every 8 hours and start oral predisone tomorrow. Plan for discharge home tomorrow. Despite patient's weakness, she is adamant about going home only. REVIEW OF SYSTEMS Constitutional: No fever, no chills, no night sweats. No weight change. No weakness, fatigue or lethargy. No daytime sleepiness. EENT: No headache. No blurred vision or double vision, no loss of vision. No dizziness. No nasal drainage or congestion. No epistaxis. No sore throat. Lungs: Reports shortness of breath-improving, Reports cough, Reports sputum production. Reports wheezing. Cardiovascular: No chest pain, no lower extremity edema. No palpitations. No paroxysmal nocturnal dyspnea. No orthopnea. No lightheadedness or dizziness. No syncopal episodes. Abdominal: No abdominal pain. No nausea, vomiting. No diarrhea. No constipation. No bloody or tarry stools. No loss of appetite. Genitourinary: No dysuria, increased frequency, urgency. No urinary retention. Musculoskeletal: No myalgias. No muscle weakness, no gait dysfunction, no frequent falls. No back pain. No neck pain. Integumentary: No wounds, no lesions. No rash or pruritus. No unusual bruising. No change in hair or nails. Neurologic: No aphasia. No facial droop. No change in mentation. No head injury. No headache. No paralysis. No paresthesia. Psychiatric: No depression. No anxiety. No mood swings. Endocrine: No abnormal blood sugars. No weight change. No excessive sweating or thirst. No cold intolerance. PHYSICAL EXAMINATION Gen: This is a frail appearing 80-year-old female. Patient is resti ng in bed and appears to be in no acute distress at rest. Currently on nasal cannula oxygen. HEENT: Head is atraumatic, normocephalic. Pupils equal, round. Sclerae is anicteric. NECK: Supple. No JVD. No lymphadenopathy. No thyromegaly. LUNGS: Expiratory wheezing bilaterally Mildintercostal retractions. HEART: Regular rate and rhythm. Systolic murmur. ABDOMEN: Soft. Bowel sounds are present. No masses. No tenderness. EXTREMITIES: No pedal edema. No calf tenderness. NEUROLOGICAL: Patient is awake, alert and oriented x3. Cranial nerves 2 through 12 are grossly intact. ASSESSMENT AND PLAN 1. Acute COPD exacerbation. Continue DuoNeb treatments every 6 hours and as needed, Pulmicort 1 mg twice daily, Solu-Medrol 60 mg IV every 6 hours decreased to 40 mg every 8 for today and start Prednisone 40 mg in the morning. Consult with Dr. Chris conte. 2. History of rectal vaginal fistula, repaired with colon resection and colostomy placement done at [facility], count includes the [facility]. 3. History of coronary artery disease. Stable at this time. 4. Hypertension and hypertensive cardiovascular disease. Continue losartan 100 mg twice daily, continue hydrochlorothiazide 12.5 mg daily. 5. Hyperlipidemia. Low-cholesterol diet. 6. GERD. Continue current Protonix 40 mg orally once every day. 7. Osteoarthritis. Continue meloxicam 15 mg orally once every day. 8. History of tobacco use and dependence. Lovenox 30 mg subcu daily 9. Osteoporosis. Stable. 10. DVT prophylaxis. Heparin subcutaneously every 12 hours. 11. GI prophylaxis. On Protonix 40 mg orally once every day. 10. COVID-19 testing negative. Patient has been hospitalized during a pandemic. DISCHARGE PLAN Home with Home Care tomorrow. Walker ordered to home to help patient perform ADLs. Impression and plan of care have been directed as dictated by the signing physician. Keren Daniels nurse practitioner acting as scribe for signing physician. Objective - Vital Signs Vital signs: Vital Signs Temp 97.8 F 02/06/21 01:22 Pulse 70 02/06/21 08:11 Resp 20 02/06/21 01:22 BP 108/49 02/06/21 01:22 Pulse Ox 98 02/06/21 08:01 Intake & Output 02/05/21 02/06/21 02/06/21 18:59 06:59 18:59 Intake Total 240 Balance 240 Intake: Oral 240 Other: Voiding Method Toilet Toilet Bedside Commode Bedside Commode # Voids 2 - Labs CBC & Chem 7: 02/06/21 07:51 02/06/21 07:51 Labs: Microbiology - Last 24 Hours (Table) 02/04/21 02:46 Gram Stain - Preliminary Sputum Sputum Culture - Preliminary
[2021-02-06] MEDS ORDERED: methylPREDNISolone SOD SUCCI 40 MG/ML 1 ML VIAL IV SCH (16:00)
[2021-02-06] MEDS ORDERED: ONDANSETRON 4 MG/2 ML VIAL IVP PRN (20:46)
[2021-02-06] MEDS: BENZONATATE 100 MG CAP PO PRN (21:00)
[2021-02-07] MEDS: ALPRAZolam 0.5 MG TAB PO PRN ×2 (00:40→12:02)
[2021-02-07] MEDS: IPRATROPIUM-ALBUTEROL 3 ML NEB INHALATION PRN ×2 (00:50→04:14)
[2021-02-07] MEDS: guaiFENesin 600 MG TABLET.ER PO SCH (08:06)
[2021-02-07] MEDS: LOSARTAN 50 MG TAB PO SCH (08:06)
[2021-02-07] MEDS: FLUCONAZOLE 100 MG TAB PO SCH (08:07)
[2021-02-07] MEDS: PANTOPRAZOLE 40 MG TABLET PO SCH (08:07)
[2021-02-07] MEDS: LETROZOLE 2.5 MG TAB PO SCH (08:07)
[2021-02-07] MEDS: MELOXICAM 7.5 MG TAB PO SCH (08:08)
[2021-02-07] MEDS: IPRATROPIUM-ALBUTEROL 3 ML NEB INHALATION SCH (08:08)
[2021-02-07] MEDS: hydroCHLOROthiazide 12.5 MG CAP PO SCH (08:08)
[2021-02-07] MEDS: DICYCLOMINE 10 MG CAP PO SCH (08:08)
[2021-02-07] MEDS: BUDESONIDE 1 MG/2 ML NEBU INHALATION SCH (08:09)
[2021-02-07] MEDS: FLUTICASONE 50MCG/SPRAY NASAL 16GM EA NOSTRIL SCH (08:11)
[2021-02-07] MEDS ORDERED: predniSONE 20 MG TAB PO SCH (09:00)
[2021-02-07] MEDS: ENOXAPARIN 30 MG/0.3 ML SYRINGE SQ SCH (10:42)
[2021-02-07] MEDS: polyethylene glycoL 3350 17 GM POWD.PACK PO SCH (10:42)
--- NOTE | 2021-02-07 11:01 | P.PN ---
Subjective Progress Note Date: 02/07/21 The patient is seen today 02/07/2021 in follow-up on the regular medical floor. She is currently sitting up in bed. Awake and alert in no acute distress. No worsening shortness of breath, cough or congestion. Maintaining good O2 saturations in the 90s on 3 L/m per nasal cannula. Sputum culture revealed no growth. No new labs today. Continued on DuoNeb inhalations, Pulmicort inhalations, prednisone taper. Objective - Vital Signs Vital signs: Vital Signs Temp 97.6 F 02/07/21 01:17 Pulse 92 02/07/21 08:19 Resp 22 02/07/21 01:17 BP 152/78 02/07/21 01:17 Pulse Ox 97 02/07/21 01:17 Intake & Output 02/06/21 02/07/21 02/07/21 18:59 06:59 18:59 Intake Total 120 Balance 120 Intake: Oral 120 Other: Voiding Method Toilet Toilet Bedside Commode Bedside Commode # Voids 3 1 0 # Bowel Movements 1 - Exam GENERAL EXAM: Alert, pleasant 80-year-old female patient, sitting up in bed, on 3 L nasal cannula, comfortable in no apparent distress. HEAD: Normocephalic. EYES: Normal reaction of pupils, equal size. NOSE: Clear with pink turbinates. THROAT: No erythema or exudates. NECK: No masses, no JVD. CHEST: No chest wall deformity. LUNGS: Equal air entry with bilateral end expiratory wheeze, diminished. CVS: S1 and S2 normal with no audible murmur, regular rhythm. ABDOMEN: No hepatosplenomegaly, normal bowel sounds, no guarding or rigidity. SPINE: No scoliosis or deformity SKIN: No rashes CENTRAL NERVOUS SYSTEM: No focal deficits, tone is normal in all 4 extremities. EXTREMITIES: There is no peripheral edema. No clubbing, no cyanosis. Peripheral pulses are intact. - Labs CBC & Chem 7: 02/06/21 07:51 02/06/21 07:51 Labs: Abnormal Lab Results - Last 24 Hours (Table) 02/06/21 02/06/21 Range/Units 07:51 07:51 MCHC 30.8 L (32.0-37.0) g/dL Carbon Dioxide 36.2 H (21.6-31.8) mmol/L BUN 41.3 H (9.0-27.0) mg/dL BUN/Creatinine Ratio 51.63 H (12.00-20.00) Ratio Glucose 165 H (70-110) mg/dL Total Bilirubin <0.20 L (0.30-1.20) mg/dL Total Protein 5.6 L (6.2-8.2) g/dL Microbiology - Last 24 Hours (Table) 02/04/21 02:46 Gram Stain - Final Sputum Sputum Culture - Final Assessment and Plan Assessment: 1 Acute exacerbation of chronic obstructive pulmonary disease. No clear evidence of pneumonia. No evidence of PE. VQ scan of no value. COVID-19 screen negative. 2 Acute on chronic hypoxic respiratory failure secondary to above 3 Previous history of colectomy with colostomy secondary to rectovaginal fistula status post repair. 4 Coronary artery disease 5 Hypertension 6 Hyperlipidemia 7 History of chronic tobacco dependence 8 History of breast cancer with left mastectomy 9 Osteoporosis Plan: The patient was seen and evaluated by Dr. Baker She is cleared for discharge from the pulmonary standpoint Continue the current treatment plan Complete prednisone taper Follow up in the office in 1-2 weeks' time I, the cosigning physician, performed a history and physical examination of the patient. Lungs sounds with bilateral end expiratory wheeze, diminished. Maintaining O2 saturations in the 90s on 3 L/m nasal cannula. I discussed the assessment and plan of care with my nurse, Rosi Julio. I attest to the above note as dictated by her.
[2021-02-07 11:50] VITALS: BP 176/77; PULSE 87; RESP 24; TEMP 98.1
--- NOTE | 2021-02-07 14:49 | P.DS ---
Providers Date of admission: 02/03/21 09:43 Attending physician: Alina Maldonado Consults: 02/02/21 13:43 Consult Physician Urgent Consulting Provider: Kj Bain Consult Reason/Comments: COPD exacerbation Do you want consulting provider notified?: Yes Primary care physician: Alvin Alejandro [facility] Course: 80year-old female patient of Dr. Alejandro with a previous medical history significant for coronary artery disease status post left heart catheterization with the left heart catheterization that was done in September 2014 that showed ostial lesion of the diagonal branch and mild disease of the RCA, normal ejection fraction, hypertension and hypertensive cardiovascular disease with left ventricular hypertrophy, chronic tobacco use and dependence with chronic obstructive pulmonary disease, chronic hypoxic respiratory failure on home O2, GERD, rectovaginal fistula repair, colon resection and colostomy placement done at [facility]. Patient states that she has been followi ng with Dr. Smith and has had increasing shortness of breath for the past month off and on. She started antibiotics on Saturday and she is on chronic prednisone at 10 mg every day, O2 at 3-1/2 L [id number]. She has been utilizing her nebulizer 4 times daily for most of the month. She continues to have tightness and wheezing and shortness of breath. She denies having any lower extremity ed fabio. She denies any history of DVT or PE in the past. Patient came into [facility] emergency center with the above concerns. Patient is afebrile, heart rate 60-107, blood pressure 144/54, pulse ox 98%. CBC was unremarkable. Sodium 135, potassium 4.2, chloride 98, CO2 34, BUN 19 and creatinine 0.68. Blood sugar 144. Liver function tests were within normal limits. Lactic acid 1.7. Troponin negative. Probe BNP 623. Coronavirus PCR not detected. Chest x-ray reveals COPD, borderline heart size. Vascular interstitial prominence. Correlate to exclude mild pulmonary vascular congestion. EKG was a sinus rhythm, sinus arrhythmia with no acute ST changes. Echocardiogram reveals EF of 60-65%, trace mitral regurgitation, mild tricuspid regurgitation, mild pulmonary hypertension. Patient was started on DuoNeb treatments, Solu-Medrol IV, and placed in the observation unit and consult with pulmonary medicine requested. 02/04: Patient evaluated today, states overall she is feeling the same . She still does have expiratory wheezing on exam today. Mucinex and Tessalon were added. Patient encouraged to do her incentive spirometer, incentive spirometer is at the bedside. Patient continues with updraft treatments along with budesonide and Solu-Medrol 60 mg every 6 hours. Vital signs are stable she is afebrile with a temperature 98.3, heart rate is 88, respiratory rate 18, blood pressure 148/65, she's 98% on 3 L via nasal cannula. 02/05: Patient evaluated today, sitting up in bed awake and alert and she is in no acute distress. She reports she is feeling slightly better. Wheezing noted to be less today and air entry is better and seems to be improving. She continues on updrafts, budesonide, and Solu-Medrol 60 mg every 6 hours. Incentive spirometer ordered. 02/06: Patient's breathing is slowly imrpoving. She is on Solumedrol at 60 mg every 6 hours which will be decreased to 40 mg every 8 hours and start oral predisone tomorrow. Plan for discharge home tomorrow. Despite patient's weakness, she is adamant about going home only. 02/07 patient examined at bedside. Breathing is much better. Wheezing is improved with DuoNeb's and steroids. Pulmonary evaluated the patient and has cleared patient for discharge today. Patient will continue prednisone 40 mg once a day for 7 days. Prescription sent to the pharmacy. Continue Mucinex and incentive spirometry. Symbicort initiated twice daily PHYSICAL EXAMINATION Gen: This is a frail appearing 80-year-old female. Patient is resting in bed and appears to be in no acute distress at rest. Currently on nasal cannula oxygen. HEENT: Head is atraumatic, normocephalic. Pupils equal, round. Sclerae is anicteric. NECK: Supple. No JVD. No lymphadenopathy. No thyromegaly. LUNGS: Expiratory wheezing bilaterally Mildintercostal retractions. HEART: Regular rate and rhythm. Systolic murmur. ABDOMEN: Soft. Bowel sounds are present. No masses. No tenderness. EXTREMITIES: No pedal edema. No calf tenderness. NEUROLOGICAL: Patient is awake, alert and oriented x3. Cranial nerves 2 through 12 are grossly intact. ASSESSMENT AND PLAN 1. Acute COPD exacerbation. 2. History of rectal vaginal fistula, repaired with colon resection and colostomy placement done at [facility], stable. 3. History of coronary artery diseas 4. Hypertension and hypertensive cardiovascular disease. 5. Hyperlipidemia. 6. GERD. 7. Osteoarthritis. 8. History of tobacco use and dependence. 9. Osteoporosis. Discharge disposition home with home care Patient Condition at Discharge: Fair Plan - Discharge Summary Discharge Rx Participant: No New Discharge Prescriptions: New predniSONE [Deltasone] 40 mg PO DAILY #14 tab Fluconazole [Diflucan] 100 mg PO DAILY #7 tab guaiFENesin [Mucinex] 600 mg PO Q12HR tablet Budesonide-Formot 160-4.5 Mcg [Symbicort 160-4.5 Mcg Inhaler] 2 puff INHALATION BID #1 each Continue Gabapentin [Neurontin] 100 mg PO TID PRN PRN Reason: Pain ALPRAZolam [Xanax] 1 mg PO TID PRN PRN Reason: Anxiety Prochlorperazine [Compazine] 10 mg PO TID PRN #30 tab PRN Reason: Nausea Omeprazole [PriLOSEC] 20 mg PO DAILY Dicyclomine [Bentyl] 10 mg PO BID Tiotropium [place] [Spiriva] 1 cap INHALATION RT-DAILY Albuterol Nebulized [Ventolin Nebulized] 2.5 mg INHALATION RT-QID Losartan Potassium 100 mg PO BID Celecoxib [CeleBREX] 200 mg PO DAILY Letrozole [Femara] 2.5 mg PO DAILY Fluticasone Nasal [place] [Flonase Nasal [place]] 2 spr EA NOSTRIL DAILY hydroCHLOROthiazide [Hydrodiuril] 12.5 mg PO DAILY Albuterol Sulfate [Proair Hfa] 2 puff INHALATION RT-QID PRN PRN Reason: Shortness Of Breath Ipratropium Nebulized [Atrovent Nebulized 0.2 MG/ML] 0.5 mg INHALATION RT-QID Budesonide/Formoterol Fumarate [Symbicort 160-4.5 Mcg Inhaler] 2 puff INHALATION RT-BID Benzonatate [Tessalon Perles] 100 mg PO TID PRN PRN Reason: Cough Discontinued predniSONE See Taper PO DAILY Discharge Medication List Gabapentin [Neurontin] 100 mg PO TID PRN 09/17/14 [History] ALPRAZolam [Xanax] 1 mg PO TID PRN 06/16/15 [History] Prochlorperazine [Compazine] 10 mg PO TID PRN #30 tab 06/18/15 [Rx] Omeprazole [PriLOSEC] 20 mg PO DAILY 03/06/16 [History] Dicyclomine [Bentyl] 10 mg PO BID 11/12/16 [History] Tiotropium [place] [Spiriva] 1 cap INHALATION RT-DAILY 11/12/16 [History] Albuterol Nebulized [Ventolin Nebulized] 2.5 mg INHALATION RT-QID 03/10/18 [History] Celecoxib [CeleBREX] 200 mg PO DAILY 01/22/19 [History] Losartan Potassium 100 mg PO BID 01/22/19 [History] Albuterol Sulfate [Proair Hfa] 2 puff INHALATION RT-QID PRN 02/02/21 [History] Benzonatate [Tessalon Perles] 100 mg PO TID PRN 02/02/21 [History] Budesonide/Formoterol Fumarate [Symbicort 160-4.5 Mcg Inhaler] 2 puff INHALATION RT-BID 02/02/21 [History] Fluticasone Nasal [place] [Flonase Nasal [place]] 2 spr EA NOSTRIL DAILY 02/02/21 [History] Ipratropium Nebulized [Atrovent Nebulized 0.2 MG/ML] 0.5 mg INHALATION RT-QID 02/02/21 [History] Letrozole [Femara] 2.5 mg PO DAILY 02/02/21 [History] hydroCHLOROthiazide [Hydrodiuril] 12.5 mg PO DAILY 02/02/21 [History] Budesonide-Formot 160-4.5 Mcg [Symbicort 160-4.5 Mcg Inhaler] 2 puff INHALATION BID #1 each 02/07/21 [Rx] Fluconazole [Diflucan] 100 mg PO DAILY #7 tab 02/07/21 [Rx] guaiFENesin [Mucinex] 600 mg PO Q12HR tablet 02/07/21 [Rx] predniSONE [Deltasone] 40 mg PO DAILY #14 tab 02/07/21 [Rx] Follow up Appointment(s)/Referral(s): Kj Bain DO [Doctor of Osteopathic Medicine] - 1 Week [facility], [NON-STAFF] - 1 Week Alvin Alejandro DO [Primary Care Provider] - 1-2 days Patient Instructions/Handouts: How to Stop Smoking (DC) Activity/Diet/Wound Care/Special Instructions: Patient will have Physical Therapy and Occupational therapy services with [facility] upon discharge. Discharge Disposition: HOME WITH HOME HEALTH SERVICES
== END 2021-02-07 12:22 | disposition home health service (06) | DRG 190 ==
LOC: EC 10:44 → 6NMEDSUR 13:25 → OBSVTOIN 02-03 09:43
PROVIDERS: ADMIT Family Medicine; ATTEND Family Medicine
PROC: 3E0F7SF Introduction of Other Gas into Respiratory Tract, Via Natural or Artificial Opening (ICD-10-PCS; principal; 2021-02-03)
DX: J44.1 Chronic obstructive pulmonary disease with (acute) exacerbation (principal); J96.01 Acute respiratory failure with hypoxia; R64 Cachexia; Z20.822 Contact with and (suspected) exposure to COVID-19; K57.90 Diverticulosis of intestine, part unspecified, without perforation or abscess without bleeding; I10 Essential (primary) hypertension; I25.10 Atherosclerotic heart disease of native coronary artery without angina pectoris; E78.5 Hyperlipidemia, unspecified; M81.0 Age-related osteoporosis without current pathological fracture; K21.9 Gastro-esophageal reflux disease without esophagitis; G43.909 Migraine, unspecified, not intractable, without status migrainosus; J30.9 Allergic rhinitis, unspecified; J40 Bronchitis, not specified as acute or chronic; I08.3 Combined rheumatic disorders of mitral, aortic and tricuspid valves; F03.90 Unspecified dementia, unspecified severity, without behavioral disturbance, psychotic disturbance, mood disturbance, and anxiety; F17.210 Nicotine dependence, cigarettes, uncomplicated; F40.240 Claustrophobia; I49.1 Atrial premature depolarization; M13.0 Polyarthritis, unspecified; Z79.1 Long term (current) use of non-steroidal anti-inflammatories (NSAID); Z79.51 Long term (current) use of inhaled steroids; Z90.12 Acquired absence of left breast and nipple; Z87.440 Personal history of urinary (tract) infections; Z90.49 Acquired absence of other specified parts of digestive tract; Z79.52 Long term (current) use of systemic steroids; Z79.811 Long term (current) use of aromatase inhibitors; Z79.899 Other long term (current) drug therapy; Z85.3 Personal history of malignant neoplasm of breast; Z90.710 Acquired absence of both cervix and uterus; Z93.3 Colostomy status; Z87.11 Personal history of peptic ulcer disease; Z96.1 Presence of intraocular lens; Z87.19 Personal history of other diseases of the digestive system; Z98.42 Cataract extraction status, left eye; Z98.41 Cataract extraction status, right eye; Z88.6 Allergy status to analgesic agent; Z91.041 Radiographic dye allergy status; Z88.5 Allergy status to narcotic agent; Z99.81 Dependence on supplemental oxygen
CPT/HCPCS: 36415; 71046; 78582; 80053; 83605; 83735; 83880; 84484; 85025; 85027; 85379; 85610; 85730; 87070; 87205; 87635; 93005; 93306; 94640; 94760; 96365; 96372; 99285

== ENCOUNTER 2021-03-15 13:33 | Inpatient (IN) | payer MEDICARE ==
[2021-03-15] MEDS ORDERED: SODIUM CHLORIDE 0.9% 1,000 ML IV STA (13:46)
--- NOTE | 2021-03-15 13:49 | ED ---
Chest Pain HPI - General Stated Complaint: dizziness Time Seen by Provider: 03/15/21 13:35 - History of Present Illness Initial Comments: Patient complains of tightness in the chest. Nothing makes it better or worse. She has shortness of breath. She has no focal weakness. She has lightheadedness, and felt like she would pass out. She has a history of SVT. She presented in SVT today. She has no pain in the abdomen. She has no nausea or vomiting. She has had no blood in the stool or black or tarry stool. She has no change in bowel or bladder habits. The pain in the chest is substernal. It doesn't radiate anywhere. - Related Data Home Medications Medication Instructions Recorded Confirmed Gabapentin [Neurontin] 100 mg PO TID PRN 09/17/14 03/15/21 ALPRAZolam [Xanax] 1 mg PO TID PRN 06/16/15 03/15/21 Omeprazole [PriLOSEC] 20 mg PO DAILY 03/06/16 03/15/21 Dicyclomine [Bentyl] 10 mg PO BID 11/12/16 03/15/21 Tiotropium [place] [Spiriva] 1 cap INHALATION RT-DAILY 11/12/16 03/15/21 Albuterol Nebulized [Ventolin 2.5 mg INHALATION RT-QID 03/10/18 03/15/21 Nebulized] Celecoxib [CeleBREX] 200 mg PO DAILY 01/22/19 03/15/21 Losartan Potassium 100 mg PO BID 01/22/19 03/15/21 Albuterol Sulfate [Proair Hfa] 2 puff INHALATION RT-QID PRN 02/02/21 03/15/21 Benzonatate [Tessalon Perles] 100 mg PO TID PRN 02/02/21 03/15/21 Budesonide/Formoterol Fumarate 2 puff INHALATION RT-BID 02/02/21 03/15/21 [Symbicort 160-4.5 Mcg Inhaler] Fluticasone Nasal [place] [Flonase 2 spr EA NOSTRIL DAILY 02/02/21 03/15/21 Nasal [place]] Ipratropium Nebulized [Atrovent 0.5 mg INHALATION RT-QID 02/02/21 03/15/21 Nebulized 0.2 MG/ML] Letrozole [Femara] 2.5 mg PO DAILY 02/02/21 03/15/21 hydroCHLOROthiazide [Hydrodiuril] 12.5 mg PO DAILY 02/02/21 03/15/21 Furosemide [Lasix] 20 mg PO DAILY 03/15/21 03/15/21 predniSONE 10 mg PO DAILY 03/15/21 03/15/21 Previous Rx's Medication Instructions Recorded Prochlorperazine [Compazine] 10 mg PO TID PRN #30 tab 06/18/15 Allergies Allergy/AdvReac Type Severity Reaction Status Date / Time adhesive tape AdvReac tears Verified 03/15/21 14:39 skin-paper tape OK aspirin AdvReac Nausea-with Verified 03/15/21 14:39 325 mg dose codeine AdvReac "makes Verified 03/15/21 14:39 her weird" Iodinated Contrast Media AdvReac Nausea & Verified 03/15/21 14:39 [Iodinated Contrast Media - Vomiting IV Dye] Review of Systems ROS Statement: Those systems with pertinent positive or pertinent negative responses have been documented in the HPI. ROS Other: All systems not noted in ROS Statement are negative. EKG Findings - EKG Comments: EKG Findings:: Twelve-lead EKG shows ventricular rate 114 bpm, normal IL interval and QRS complexes, no ST elevation or depression, interpreted by me as sinus tachycardia. Past Medical History Past Medical History: Asthma, Coronary Artery Disease (CAD), Cancer, COPD, GERD/Reflux, Hypertension, Osteoarthritis (OA), Pneumonia, Respiratory Disorder Additional Past Medical History / Comment(s): Other hx: L breast cancer with left mastectomy, diverticulosis/diverticular complications and rectovaginal fi stula status post fistula repair, colon resection and colostomy placement at [facility], irritable bowel syndrome, peptic ulcer disease, generalized arthritis-multiple joints, leg cramps, frequent UTIs, migraines in the past, bronchitis, allergic rhinitis. 3.5L oxygen via [place] History of Any Multi-Drug Resistant Organisms: None Reported Past Surgical History: Adenoidectomy, Appendectomy, Bladder Surgery, Bowel Resection, Cholecystectomy, Heart Catheterization, Hysterectomy, Orthopedic Surgery, Tonsillectomy Additional Past Surgical History / Comment(s): 09/21/14 cardiac cath with disease-treated medically, cataracts removed bilaterally with lens implants, rt rotator cuff, juan m carpal tunnel, bladder suspension, rectocele repair, hemorrhoidectomy, colonoscopies, camera endoscopy, EGD, left mastectomy , vaginal rectal fistula repair, bowel resection and colostomy placement Past Anesthesia/Blood Transfusion Reactions: No Reported Reaction Additional Past Anesthesia/Blood Transfusion Reaction / Comment(s): Pt is claustrophobic. Past Psychological History: Anxiety Additional Psychological History / Comment(s): Pt resides at [facility]. She is independent. She uses no assistive device. She drives. She has a nebulizer. Her daughter does the grocery shopping. She has a little anxiety which she occasionally uses xanax with good results. She is claustrophobic. Smoking Status: Former smoker Past Alcohol Use History: None Reported Additional Past Alcohol Use History / Comment(s): Patient started smoking in 1960 1 pack per day and quit 2 weeks ago. 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 She is . She has grown children in the area. Past Drug Use History: None Reported - Past Family History Father Family Medical History: COPD Additional Family Medical History / Comment(s): Father is . Mother Family Medical History: CVA/TIA, Hypertension Additional Family Medical History / Comment(s): at age 91 Brother(s) Family Medical History: Cancer, Myocardial Infarction (PR) Daughter(s) Family Medical History: No Reported History Son(s) Family Medical History: No Reported History Sister(s) Family Medical History: Cancer Additional Family Medical History / Comment(s): Sister had metastatic breast cancer and is . General Exam General appearance: alert, in no apparent distress Head exam: Present: atraumatic, normocephalic, normal inspection Eye exam: Present: normal appearance, PERRL, EOMI. Absent: scleral icterus, conjunctival injection, periorbital swelling ENT exam: Present: normal exam, mucous membranes moist Neck exam: Present: normal inspection. Absent: tenderness, meningismus, ly mphadenopathy Respiratory exam: Present: normal lung sounds bilaterally. Absent: respiratory distress, wheezes, rales, rhonchi, stridor Cardiovascular Exam: Present: regular rate, normal rhythm, tachycardia, normal heart sounds. Absent: systolic murmur, diastolic murmur, rubs, gallop, clicks GI/Abdominal exam: Present: soft, normal bowel sounds. Absent: distended, tenderness, guarding, rebound, rigid Extremities exam: Present: normal inspection, full ROM, normal capillary refill. Absent: tenderness, pedal edema, joint swelling, calf tenderness Back exam: Present: normal inspection Neurological exam: Present: alert, oriented X3, CN II-XII intact Psychiatric exam: Present: normal affect, normal mood Skin exam: Present: warm, dry, intact, normal color. Absent: rash Course Vital Signs 03/15/21 13:40 Temperature 97.5 F L Pulse Rate 168 H Respiratory 18 Rate Blood Pressure 69/26 O2 Sat by Pulse 100 Oximetry Chest Pain MDM - MDM Patient's heart rate has been stable since starting on the Cardizem. She still has chest pain however. I will consult cardiology. Patient will be admitted to the hospital. Critical Care Time Critical Care Time: Yes Total Critical Care Time: 35 Disposition Clinical Impression: Supraventricular tachycardia, Chest pain Disposition: ADMITTED IP TO THIS HOSP Condition: Fair Is patient prescribed a controlled substance at d/c from ED?: No Referrals: Alvin Alejandro DO [Primary Care Provider] - 1-2 days
[2021-03-15 14:06] LABS: Basophils # (A) 0.1 k/uL (0-0.2); Basophils % (A) 1 %; Eosinophils % (A) 0 %; HCT 38.6 % (34.0-46.0); HGB 12.8 gm/dL (11.4-16.0); Lymphocytes # (A) 0.9 k/uL (1.0-4.8); Lymphocytes % (A) 10 %; MCH 29.3 pg (25.0-35.0); MCHC 33.3 g/dL (31.0-37.0); Mean Platelet Volume 7.2; Monocytes # (A) 0.6 k/uL (0-1.0); Monocytes % (A) 7 %; Neutrophils # (A) 7.1 k/uL (1.3-7.7); Neutrophils % (A) 81 %; Platelet Count 230 k/uL (150-450); RBC 4.38 m/uL (3.80-5.40); RDW 14.6 % (11.5-15.5); WBC 8.8 k/uL (3.8-10.6)
[2021-03-15] MEDS ORDERED: DILTIAZEM 125 MG in SODIUM CHLORIDE 0.9% 100 ML IV SCH (14:15)
[2021-03-15 14:20] LABS: ALT 21 U/L (4-34); AST 29 U/L (14-36); African American GFR (CKD) >90 (>60 ml/min/1.73 sqM); Albumin 3.4 g/dL (3.5-5.0); Alkaline Phosphatase 74 U/L (38-126); Anion Gap 3 mmol/L; Blood Urea Nitrogen 15 mg/dL (7-17); Calcium 9.5 mg/dL (8.4-10.2); Carbon Dioxide 32 mmol/L (22-30); Chloride 104 mmol/L (98-107); Glucose 133 mg/dL (74-99); Magnesium 1.8 mg/dL (1.6-2.3); Non-African American GFR(CKD) 81 (>60 ml/min/1.73 sqM); Potassium 3.8 mmol/L (3.5-5.1); Sodium 139 mmol/L (137-145); Total Bilirubin 0.5 mg/dL (0.2-1.3); Total Protein 5.9 g/dL (6.3-8.2)
--- NOTE | 2021-03-15 14:35 | XR ---
EXAMINATION TYPE: XR chest 1V portable DATE OF EXAM: 03/15/2021 COMPARISON: 02/02/2021 INDICATION: Chest pain and tightness TECHNIQUE: Single frontal view of the chest is obtained. FINDINGS: The heart size is normal. The pulmonary vasculature is normal. The lungs are clear. IMPRESSION: 1. No acute pulmonary process.
[2021-03-15 14:36] LABS: INR 0.9 (<1.2); Prothrombin Time 9.4 sec (9.0-12.0)
[2021-03-15 14:37] LABS: Partial Thromboplastin Time 19.8 sec (22.0-30.0)
[2021-03-15] MEDS ORDERED: NALOXONE 0.4 MG/ML 1 ML VIAL IV PRN (15:23)
[2021-03-15] MEDS ORDERED: GABAPENTIN 100 MG CAP PO PRN (15:25)
[2021-03-15] MEDS ORDERED: ALBUTEROL NEBULIZED 2.5 MG/3 ML INHALATION PRN (15:25)
[2021-03-15] MEDS: ALBUTEROL NEB (CONC) 2.5 MG/0.5 ML INHALATION SCH ×2 (17:31→21:30)
[2021-03-15] MEDS: IPRATROPIUM 0.5 MG/2.5 ML NEBU INHALATION SCH ×2 (17:32→21:30)
[2021-03-15] MEDS: ALPRAZolam 1 MG TAB PO PRN (21:33)
[2021-03-15] MEDS: LOSARTAN 50 MG TAB PO SCH (21:33)
[2021-03-15] MEDS: DICYCLOMINE 10 MG CAP PO SCH (21:33)
[2021-03-15] MEDS: SYMBICORT 160-4.5 MCG INHALER INHALATION SCH (21:37)
[2021-03-16 06:39] LABS: Glucose,Whole Blood 77 mg/dL (75-99)
[2021-03-16] MEDS ORDERED: NON FORMULARY DRUG (Tiotropium Bromide [Spiriva] 18 MCG Cap.W.Dev) INHALATION SCH (08:00)
[2021-03-16] MEDS: IPRATROPIUM-ALBUTEROL 3 ML NEB INHALATION SCH ×4 (08:11→15:29)
[2021-03-16] MEDS: SYMBICORT 160-4.5 MCG INHALER INHALATION SCH (08:47)
[2021-03-16] MEDS: DICYCLOMINE 10 MG CAP PO SCH (08:51)
[2021-03-16] MEDS: LOSARTAN 50 MG TAB PO SCH (08:51)
[2021-03-16] MEDS ORDERED: hydroCHLOROthiazide 12.5 MG CAP PO SCH (09:00)
[2021-03-16] MEDS ORDERED: MELOXICAM 7.5 MG TAB PO SCH (09:00)
[2021-03-16] MEDS ORDERED: LETROZOLE 2.5 MG TAB PO SCH (09:00)
[2021-03-16] MEDS ORDERED: PANTOPRAZOLE 40 MG TABLET PO SCH (09:00)
[2021-03-16] MEDS ORDERED: FUROSEMIDE 20 MG TAB PO SCH (09:00)
[2021-03-16] MEDS ORDERED: polyethylene glycoL 3350 17 GM POWD.PACK PO SCH (09:15)
[2021-03-16] MEDS: ALPRAZolam 1 MG TAB PO PRN (09:39)
[2021-03-16] MEDS ORDERED: DILTIAZEM CD 120 MG CAP.ER.24H PO SCH (11:15)
[2021-03-16 11:43] LABS: Glucose,Whole Blood 92 mg/dL (75-99)
[2021-03-16] MEDS ORDERED: predniSONE 20 MG TAB PO SCH (12:00)
--- NOTE | 2021-03-16 12:30 | P.CRDCN ---
History of Present Illness Consult date: 03/16/21 History of present illness: HISTORY OF PRESENT ILLNESS: This is a 80-year-old female with a past medical history significant for COPD, home oxygen use, former nicotine dependence, hypertension, and hyperlipidemia. Patient follows in the office with Dr. Arriaga. We have been asked to see the patient in consultation for SVT. Patient examined at the bedside. Patient states yesterday she was doing the dishes at home when she began to feel dizzy and very short of breath. She presented to the hospital for further evaluation. The patient was found to be in SVT upon arrival per ER notes. The EKG completed revealed sinus tachycardia with a heart rate of 114. Patient was started on IV cardizem which is currently on hold. Her heart rate is in the 80s. Upon reveal of telemetry, the patient did have some episodes of SVT yesterday with HRs in the 170s. The patient denies a history of SVT. She states that her chest yesterday felt heavy which she believes was due to her breathing difficulty. She currently denies any chest pain. She does appear short of breath this morning and is tachypneic. She has audible wheezing and is receiving a breathing t reatment at the time of my examination. EKG reveals sinus tachycardia with a HR of 114. ST depression noted in inferior leads. Chest xray negative for acute process Laboratory data: WBC 8.8. Hemoglobin 12.8. Platelet count 230. D-dimer 0.50. Sodium 139. Potassium 3.8. BUN 15. Creatinine 0.72. Troponin negative 3. ProBNP 252. Current home cardiac medications include hydrochlorothiazide 12.5 mg daily, losartan 100 mg twice a day and Lasix 20 mg daily Most recent echocardiogram obtained in January 2021 revealed ejection fraction 60-65%, trace mitral regurgitation, mild tricuspid regurgitation, and mild pulmonary hypertension Cardiac catheterization history: 2014 revealing moderate disease in the ostium of the diagonal branch and mild disease in the right coronary artery REVIEW OF SYSTEMS: At the time of my exam: CONSTITUTIONAL: Denies fever or chills. HEENT: Denies blurred vision, vision changes, or eye pain. Denies hemoptysis CARDIOVASCULAR: Denies chest pain. Denies orthopnea. Denies PND. Denies palpitations RESPIRATORY: Reports shortness of breath. GASTROINTESTINAL: Denies abdominal pain. Denies nausea or vomiting. HEMATOLOGIC: Denies bleeding disorders. GENITOURINARY: Denies any blood in urine. SKIN: Denies pruitis. Denies rash. PHYSICAL EXAM: VITAL SIGNS: Reviewed. GENERAL: Well-developed in no acute distress. HEENT: Head is normocephalic. Pupils are equal, round. Sclerae anicteric. Mucous membranes of the mouth are moist. Neck supple. No JVD or thyromegaly LUNGS: Respirations even and unlabored. Lungs with decreased air exchange bilaterally and expiratory wheezing HEART: Regular rate and rhythm. S1 and S2 heard. ABDOMEN: Soft. Nondistended. Nontender. EXTREMITIES: Normal range of motion. No clubbing or cyanosis. Peripheral pulses intact. No lower extremity edema NEUROLOGIC: Awake and alert. Oriented x 3. ASSESSMENT: Shortness of breath Acute COPD exacerbation History of COPD with home o2 Paroxysmal SVT Hypertension Hyperlipidemia Former nicotine dependence PLAN: No need to repeat echocardiogram as this was performed in January 2021 Discontinue IV Cardizem Begin oral Cardizem CD 120mg daily Check TSH Continue telemetry monitoring Consult pulmonary for evaluation Further recommendations pending patient course Nurse practitioner note has been reviewed by physician. Signing provider agrees with the documented findings, assessment, and plan of care. Past Medical History Past Medical History: Asthma, Cancer, COPD, GERD/Reflux, Hypertension, Osteoarthritis (OA), Pneumonia, Respiratory Disorder Additional Past Medical History / Comment(s): L breast cancer with left mastectomy, diverticulosis/diverticular complications and rectovaginal fistula status post fistula repair, colon resection and colostomy placement at [facility], irritable bowel syndrome, peptic ulcer disease, generalized arthritis-multiple joints, leg cramps, frequent UTIs, migraines in the past, bronchitis, allergic rhinitis. 3.5L oxygen via [place] History of Any Multi-Drug Resistant Organisms: None Reported Past Surgical History: Adenoidectomy, Appendectomy, Bladder Surgery, Bowel Resection, Cholecystectomy, Heart Catheterization, Hysterectomy, Orthopedic Surgery, Tonsillectomy Additional Past Surgical History / Comment(s): 09/21/14 cardiac cath with disease-treated medically, cataracts removed bilaterally with lens implants, rt rotator cuff, juan m carpal tunnel, bladder suspension, rectocele repair, hemorrhoidectomy, colonoscopies, camera endoscopy, EGD, left mastectomy , vaginal rectal fistula repair, bowel resection and colostomy placement Past Anesthesia/Blood Transfusion Reactions: No Reported Reaction Additional Past Anesthesia/Blood Transfusion Reaction / Comment(s): Pt is claustrophobic. Past Psychological History: Anxiety Additional Psychological History / Comment(s): Pt lives with daughter Ana. She is independent. Uses walker and shower chair PRN. She has a nebulizer. Her daughter does the grocery shopping. She has a little anxiety which she occas ionally uses xanax with good results. She is claustrophobic. Smoking Status: Former smoker Past Alcohol Use History: None Reported Past Drug Use History: None Reported - Past Family History Father Family Medical History: COPD Additional Family Medical History / Comment(s): Father is . Mother Family Medical History: CVA/TIA, Hypertension Additional Family Medical History / Comment(s): at age 91 Brother(s) Family Medical History: Cancer, Myocardial Infarction ([place]) Daughter(s) Family Medical History: No Reported History Son(s) Family Medical History: No Reported History Sister(s) Family Medical History: Cancer Additional Family Medical History / Comment(s): Sister had metastatic breast cancer and is . Medications and Allergies Home Medications Medication Instructions Recorded Confirmed Type Gabapentin [Neurontin] 100 mg PO TID PRN 09/17/14 03/15/21 History ALPRAZolam [Xanax] 1 mg PO TID PRN 06/16/15 03/15/21 History Prochlorperazine [Compazine] 10 mg PO TID PRN #30 tab 06/18/15 03/15/21 Rx Omeprazole [PriLOSEC] 20 mg PO DAILY 03/06/16 03/15/21 History Dicyclomine [Bentyl] 10 mg PO BID 11/12/16 03/15/21 History Tiotropium [place] [Spiriva] 1 cap INHALATION RT-DAILY 11/12/16 03/15/21 History Albuterol Nebulized [Ventolin 2.5 mg INHALATION RT-QID 03/10/18 03/15/21 History Nebulized] Celecoxib [CeleBREX] 200 mg PO DAILY 01/22/19 03/15/21 History Losartan Potassium 100 mg PO BID 01/22/19 03/15/21 History Albuterol Sulfate [Proair Hfa] 2 puff INHALATION RT-QID PRN 02/02/21 03/15/21 History Benzonatate [Tessalon Perles] 100 mg PO TID PRN 02/02/21 03/15/21 History Budesonide/Formoterol Fumarate 2 puff INHALATION RT-BID 02/02/21 03/15/21 History [Symbicort 160-4.5 Mcg Inhaler] Fluticasone Nasal [place] [Flonase 2 spr EA NOSTRIL DAILY 02/02/21 03/15/21 History Nasal [place]] Ipratropium Nebulized [Atrovent 0.5 mg INHALATION RT-QID 02/02/21 03/15/21 History Nebulized 0.2 MG/ML] Letrozole [Femara] 2.5 mg PO DAILY 02/02/21 03/15/21 History hydroCHLOROthiazide [Hydrodiuril] 12.5 mg PO DAILY 02/02/21 03/15/21 History Furosemide [Lasix] 20 mg PO DAILY 03/15/21 03/15/21 History predniSONE 10 mg PO DAILY 03/15/21 03/15/21 History Allergies Allergy/AdvReac Type Severity Reaction Status Date / Time adhesive tape AdvReac tears Verified 03/15/21 14:39 skin-paper tape OK aspirin AdvReac Nausea-with Verified 03/15/21 14:39 325 mg dose codeine AdvReac "makes Verified 03/15/21 14:39 her weird" Iodinated Contrast Media AdvReac Nausea & Verified 03/15/21 14:39 [Iodinated Contrast Media - Vomiting IV Dye] Physical Exam Vitals: Vital Signs Temp Pulse Pulse Resp BP BP Pulse Ox 03/16/21 11:29 88 03/16/21 11:17 84 03/16/21 08:57 90 03/16/21 08:47 90 98 03/16/21 08:44 98.4 F 84 22 138/63 98 03/16/21 06:02 84 03/16/21 05:53 79 03/16/21 04:00 97.8 F 68 16 128/65 99 03/16/21 01:16 71 18 03/16/21 00:00 97.7 F 71 18 124/58 98 03/15/21 21:48 80 03/15/21 21:37 78 03/15/21 20:00 98.1 F 63 20 153/73 97 03/15/21 19:00 17 03/15/21 17:55 70 17 139/79 98 03/15/21 17:50 80 03/15/21 17:32 79 03/15/21 16:45 95 18 141/57 98 03/15/21 14:55 96 19 132/72 98 03/15/21 13:55 112 H 18 135/74 98 03/15/21 13:40 97.5 F L 168 H 18 69/26 100 Intake and Output 03/15/21 03/16/21 03/16/21 22:59 06:59 14:59 Intake Total 240 Output Total 200 500 Balance -200 -260 Intake: Oral 240 Output: Urine 400 Stool 200 100 Other: Voiding Method Bedside Commode Bedside Commode Bedpan Bedpan # Voids 1 1 Weight 53.977 kg 52 kg Results 03/15/21 13:51 03/15/21 13:51 Cardiac Enzymes 03/15/21 03/15/21 03/15/21 Range/Units 13:51 13:51 17:32 AST 29 (14-36) U/L Troponin I <0.012 0.022 (0.000-0.034) ng/mL 03/15/21 Range/Units 20:50 AST (14-36) U/L Troponin I 0.022 (0.000-0.034) ng/mL Coagulation 03/15/21 Range/Units 13:51 PT 9.4 (9.0-12.0) sec APTT 19.8 L (22.0-30.0) sec CBC 03/15/21 Range/Units 13:51 WBC 8.8 (3.8-10.6) k/uL RBC 4.38 (3.80-5.40) m/uL Hgb 12.8 (11.4-16.0) gm/dL Hct 38.6 (34.0-46.0) % Plt Count 230 (150-450) k/uL Comprehensive Metabolic Panel 03/15/21 Range/Units 13:51 Sodium 139 (137-145) mmol/L Potassium 3.8 (3.5-5.1) mmol/L Chloride 104 (98-107) mmol/L Carbon Dioxide 32 H (22-30) mmol/L BUN 15 (7-17) mg/dL Creatinine 0.72 (0.52-1.04) mg/dL Glucose 133 H (74-99) mg/dL Calcium 9.5 (8.4-10.2) mg/dL AST 29 (14-36) U/L ALT 21 (4-34) U/L Alkaline Phosphatase 74 (38-126) U/L Total Protein 5.9 L (6.3-8.2) g/dL Albumin 3.4 L (3.5-5.0) g/dL Current Medications Generic Name Dose Route Start Last Admin Trade Name Freq PRN Reason Stop Dose Admin Albuterol Sulfate 2.5 mg 03/15/21 15:25 03/16/21 05:51 Albuterol Nebulized 2.5 Mg/3 Ml INHALATION 2.5 mg RT-QID PRN Administration Shortness Of Breath Albuterol/Ipratropium 3 ml 03/16/21 08:00 03/16/21 11:16 Ipratropium-Albuterol 3 Ml Neb INHALATION 3 ml RT-QID TAYLOR Administration Alprazolam 1 mg 03/15/21 15:25 03/16/21 09:39 Alprazolam 1 Mg Tab PO 0.5 mg TID PRN Administration Anxiety Budesonide/Formoterol Fumarate 2 puff 03/15/21 20:00 03/16/21 08:47 Symbicort 160-4.5 Mcg Inhaler INHALATION 2 puff RT-BID TAYLOR Administration Dicyclomine HCl 10 mg 03/15/21 21:00 03/16/21 08:51 Dicyclomine 10 Mg Cap PO 10 mg BID TAYLOR Administration Diltiazem HCl 120 mg 03/16/21 11:15 Diltiazem Cd 120 Mg Cap.Er.24h PO DAILY TAYLOR Furosemide 20 mg 03/16/21 09:00 03/16/21 08:51 Furosemide 20 Mg Tab PO 20 mg DAILY TAYLOR Administration Gabapentin 100 mg 03/15/21 15:25 Gabapentin 100 Mg Cap PO TID PRN Pain Hydrochlorothiazide 12.5 mg 03/16/21 09:00 Hydrochlorothiazide 12.5 Mg Cap PO DAILY TAYLOR Letrozole 2.5 mg 03/16/21 09:00 03/16/21 08:51 Letrozole 2.5 Mg Tab PO 2.5 mg DAILY TAYLOR Administration Losartan Potassium 100 mg 03/15/21 21:00 03/16/21 08:51 Losartan 50 Mg Tab PO 100 mg BID TAYLOR Administration Meloxicam 7.5 mg 03/16/21 09:00 03/16/21 08:51 Meloxicam 7.5 Mg Tab PO 7.5 mg DAILY TAYLOR Administration Naloxone HCl 0.2 mg 03/15/21 15:23 Naloxone 0.4 Mg/Ml 1 Ml Vial IV Q2M PRN Opioid Reversal Pantoprazole Sodium 40 mg 03/16/21 09:00 03/16/21 08:51 Pantoprazole 40 Mg Tablet PO 40 mg DAILY TAYLOR Administration Polyethylene Glycol 17 gm 03/16/21 09:15 03/16/21 09:25 Polyethylene Glycol 3350 17 Gm Powd.Pack PO 17 gm DAILY TAYLOR Administration Prednisone 40 mg 03/16/21 12:00 Prednisone 20 Mg Tab PO DAILY TAYLOR Intake and Output 03/15/21 03/16/21 03/16/21 22:59 06:59 14:59 Intake Total 240 Output Total 200 500 Balance -200 -260 Intake: Oral 240 Output: Urine 400 Stool 200 100 Other: Voiding Method Bedside Commode Bedside Commode Bedpan Bedpan # Voids 1 1 Weight 53.977 kg 52 kg 03/15/21 13:51 03/15/21 13:51
[2021-03-16 12:34] VITALS: BP 133/62; RESP 20; TEMP 98.2
--- NOTE | 2021-03-16 13:20 | P.CNPUL ---
History of Present Illness Consult date: 03/16/21 Requesting physician: Alina Maldonado Reason for consult: COPD Chief complaint: shortness of breath History of present illness: This is a very pleasant 80-year-old female patient, known history of COPD, and frequently in the hospital for an acute COPD exacerbation and worsening shortness of breath. The patient has advanced COPD at baseline with an FEV1 of 51% of predicted. She is maintained on a combination of Symbicort and Spiriva and albuterol nebulized treatment are necessary basis. On prednisone 10 mg daily. On home oxygen at 2 L/m per nasal cannula. She is a chronic smoker. She is fully vaccinated for COVID-19. She comes into the hospital because of acute dyspnea cough chest tightness or wheezing. No angina. No palpitations. COVID-19 testing was negative. chest x-ray shows no acute pulmonary process. white count 8.8. Hemoglobin 12.8. D-dimer 0.50. Sodium 139. Potassium 3.8. Bicarb 32. Creatinine 0.72. Glucose 133. AST 29. ALT 21. Troponin 0.0-2. She's been initiated on Symbicort, DuoNeb inhalations, prednisone taper. Review of Systems REVIEW OF SYSTEMS: CONSTITUTIONAL: Denies any recent significant weight loss or weight gain. EYES: Denies change in vision. EARS, NOSE, MOUTH, THROAT: Denies headaches, denies sore throat. CARDIOVASCULAR: Denies chest pain, palpitations or syncopal episodes. RESPIRATORY: positive for shortness of breath, cough, congestion no hemoptysis. GASTROINTESTINAL: Denies change in appetite, denies abdominal pain GENITOURINARY: Denies hematuria, denies infections. MUSKULOSKELETAL: Denies pain, denies swelling. INTEGUMENTARY: Denies rash, denies eczema. NEUROLOGICAL: Denies recent memory loss, no recent seizure activity. PSYCHIATRIC: Denies anxiety, denies depression. HEMATOLOGIC/LYMPHATIC: Denies anemia, denies enlarged lymph nodes. Past Medical History Past Medical History: Asthma, Cancer, COPD, GERD/Reflux, Hypertension, Osteoarthritis (OA), Pneumonia, Respiratory Disorder Additional Past Medical History / Comment(s): L breast cancer with left mastectomy, diverticulosis/diverticular complications and rectovaginal fistula status post fistula repair, colon resection and colostomy placement at [facility], irritable bowel syndrome, peptic ulcer disease, generalized arthritis-multiple joints, leg cramps, frequent UTIs, migraines in the past, bronchitis, allergic rhinitis. 3.5L oxygen via [place] History of Any Multi-Drug Resistant Organisms: None Reported Past Surgical History: Adenoidectomy, Appendectomy, Bladder Surgery, Bowel Resection, Cholecystectomy, Heart Catheterization, Hysterectomy, Orthopedic Surgery, Tonsillectomy Additional Past Surgical History / Comment(s): 09/21/14 cardiac cath with disease-treated medically, cataracts removed bilaterally with lens implants, rt rotator cuff, juan m carpal tunnel, bladder suspension, rectocele repair, hemorrhoidectomy, colonoscopies, camera endoscopy, EGD, left mastectomy , vaginal rectal fistula repair, bowel resection and colostomy placement Past Anesthesia/Blood Transfusion Reactions: No Reported Reaction Additional Past Anesthesia/Blood Transfusion Reaction / Comment(s): Pt is claustrophobic. Past Psychological History: Anxiety Additional Psychological History / Comment(s): Pt lives with daughter Ana. She is independent. Uses walker and shower chair PRN. She has a nebulizer. Her daughter does the grocery shopping. She has a little anxiety which she occasionally uses xanax with good results. She is claustrophobic. Smoking Status: Former smoker Past Alcohol Use History: None Reported Past Drug Use History: None Reported - Past Family History Father Family Medical History: COPD Additional Family Medical History / Comment(s): Father is . Mother Family Medical History: CVA/TIA, Hypertension Additional Family Medical History / Comment(s): at age 91 Brother(s) Family Medical History: Cancer, Myocardial Infarction ([place]) Daughter(s) Family Medical History: No Reported History Son(s) Family Medical History: No Reported History Sister(s) Family Medical History: Cancer Additional Family Medical History / Comment(s): Sister had metastatic breast cancer and is . Medications and Allergies Home Medications Medication Instructions Recorded Confirmed Type Gabapentin [Neurontin] 100 mg PO TID PRN 09/17/14 03/15/21 History ALPRAZolam [Xanax] 1 mg PO TID PRN 06/16/15 03/15/21 History Prochlorperazine [Compazine] 10 mg PO TID PRN #30 tab 06/18/15 03/15/21 Rx Omeprazole [PriLOSEC] 20 mg PO DAILY 03/06/16 03/15/21 History Dicyclomine [Bentyl] 10 mg PO BID 11/12/16 03/15/21 History Tiotropium [place] [Spiriva] 1 cap INHALATION RT-DAILY 11/12/16 03/15/21 History Albuterol Nebulized [Ventolin 2.5 mg INHALATION RT-QID 03/10/18 03/15/21 History Nebulized] Celecoxib [CeleBREX] 200 mg PO DAILY 01/22/19 03/15/21 History Losartan Potassium 100 mg PO BID 01/22/19 03/15/21 History Albuterol Sulfate [Proair Hfa] 2 puff INHALATION RT-QID PRN 02/02/21 03/15/21 History Benzonatate [Tessalon Perles] 100 mg PO TID PRN 02/02/21 03/15/21 History Budesonide/Formoterol Fumarate 2 puff INHALATION RT-BID 02/02/21 03/15/21 History [Symbicort 160-4.5 Mcg Inhaler] Fluticasone Nasal [place] [Flonase 2 spr EA NOSTRIL DAILY 02/02/21 03/15/21 History Nasal [place]] Ipratropium Nebulized [Atrovent 0.5 mg INHALATION RT-QID 02/02/21 03/15/21 History Nebulized 0.2 MG/ML] Letrozole [Femara] 2.5 mg PO DAILY 02/02/21 03/15/21 History hydroCHLOROthiazide [Hydrodiuril] 12.5 mg PO DAILY 02/02/21 03/15/21 History Furosemide [Lasix] 20 mg PO DAILY 03/15/21 03/15/21 History Diltiazem Cd [Cardizem CD] 120 mg PO DAILY #90 cap 03/16/21 Rx polyethylene glycoL 3350 [Miralax] 17 gm PO DAILY #30 packet 03/16/21 Rx predniSONE 0 mg PO DIRECTED #30 tab 03/16/21 Rx Allergies Allergy/AdvReac Type Severity Reaction Status Date / Time adhesive tape AdvReac tears Verified 03/15/21 14:39 skin-paper tape OK aspirin AdvReac Nausea-with Verified 03/15/21 14:39 325 mg dose codeine AdvReac "makes Verified 03/15/21 14:39 her weird" Iodinated Contrast Media AdvReac Nausea & Verified 03/15/21 14:39 [Iodinated Contrast Media - Vomiting IV Dye] Physical Exam Vitals: Vital Signs Temp Pulse Pulse Resp BP BP Pulse Ox 03/16/21 12:00 98.2 F 92 20 133/62 98 03/16/21 11:29 88 03/16/21 11:17 84 03/16/21 08:57 90 03/16/21 08:47 90 98 03/16/21 08:44 98.4 F 84 22 138/63 98 03/16/21 06:02 84 03/16/21 05:53 79 03/16/21 04:00 97.8 F 68 16 128/65 99 03/16/21 01:16 71 18 03/16/21 00:00 97.7 F 71 18 124/58 98 03/15/21 21:48 80 03/15/21 21:37 78 03/15/21 20:00 98.1 F 63 20 153/73 97 03/15/21 19:00 17 03/15/21 17:55 70 17 139/79 98 03/15/21 17:50 80 03/15/21 17:32 79 03/15/21 16:45 95 18 141/57 98 03/15/21 14:55 96 19 132/72 98 03/15/21 13:55 112 H 18 135/74 98 03/15/21 13:40 97.5 F L 168 H 18 69/26 100 Intake and Output 03/15/21 03/16/21 03/16/21 22:59 06:59 14:59 Intake Total 240 Output Total 200 500 Balance -200 -260 Intake: Oral 240 Output: Urine 400 Stool 200 100 Other: Voiding Method Bedside Commode Bedside Commode Bedpan Bedpan # Voids 1 1 Weight 53.977 kg 52 kg GENERAL EXAM: Alert, pleasant 80-year-old female patient, on 3 L nasal cannula,comfortable in no apparent distress. HEAD: Normocephalic. EYES: Normal reaction of pupils, equal size. NOSE: Clear with pink turbinates. THROAT: No erythema or exudates. NECK: No masses, no JVD. CHEST: No chest wall deformity. LUNGS: Equal air entry with no crackles, wheeze, rhonchi or dullness. Diminished CVS: S1 and S2 normal with no audible murmur, regular rhythm. ABDOMEN: No hepatosplenomegaly, normal bowel sounds, no guarding or rigidity. SPINE: No scoliosis or deformity SKIN: No rashes CENTRAL NERVOUS SYSTEM: No focal deficits, tone is normal in all 4 extremities. EXTREMITIES: There is no peripheral edema. No clubbing, no cyanosis. Peripheral pulses are intact. Results - Laboratory Findings CBC and BMP: 03/15/21 13:51 03/15/21 13:51 PT/INR, D-dimer PT 9.4 sec (9.0-12.0) 03/15/21 13:51 INR 0.9 (<1.2) 03/15/21 13:51 D-Dimer 0.50 mg/L FEU (<0.60) 03/15/21 13:51 Abnormal lab findings: Abnormal Labs 03/15/21 03/15/21 03/15/21 13:51 13:51 13:51 Lymphocytes # 0.9 L APTT 19.8 L Carbon Dioxide 32 H Glucose 133 H Total Protein 5.9 L Albumin 3.4 L - Diagnostic Findings Chest x-ray: image reviewed Assessment and Plan Assessment: 1 Acute exacerbation of chronic obstructive pulmonary disease 2 Severe chronic obstructive pulmonary disease, prednisone dependent, oxygen dependent, FEV1 value 51% of predicted 3 Chronic and ongoing tobacco dependence 4 Coronary artery disease 5 Hypertension 6 History of left breast cancer status post mastectomy 7 History of bowel resection 8 History of rectovaginal fistula repair secondary to diverticular complications Plan: The patient was seen and evaluated by Dr. Perez She is cleared for discharge from the pulmonary standpoint Complete a prednisone burst and taper starting at 40 mg daily for 4 days Continue her home oxygen, nebulized treatments, inhalers Follow-up in our office in 1-2 weeks' Time with Patient: Greater than 30
[2021-03-16 15:33] VITALS: PULSE 96
[2021-03-16 16:18] LABS: Glucose,Whole Blood 130 mg/dL (75-99)
== END 2021-03-16 18:33 | disposition home or self-care (01) | DRG 309 ==
LOC: EC 13:33 → 3SCARD 15:23
PROVIDERS: ADMIT Family Medicine; ATTEND Family Medicine
DX: I47.1 Supraventricular tachycardia (principal); J44.1 Chronic obstructive pulmonary disease with (acute) exacerbation; M13.0 Polyarthritis, unspecified; Z20.822 Contact with and (suspected) exposure to COVID-19; I10 Essential (primary) hypertension; F40.240 Claustrophobia; E78.5 Hyperlipidemia, unspecified; I08.1 Rheumatic disorders of both mitral and tricuspid valves; I27.20 Pulmonary hypertension, unspecified; I25.10 Atherosclerotic heart disease of native coronary artery without angina pectoris; K21.9 Gastro-esophageal reflux disease without esophagitis; J45.909 Unspecified asthma, uncomplicated; K58.9 Irritable bowel syndrome, unspecified; J30.9 Allergic rhinitis, unspecified; G43.909 Migraine, unspecified, not intractable, without status migrainosus; F17.210 Nicotine dependence, cigarettes, uncomplicated; Z79.1 Long term (current) use of non-steroidal anti-inflammatories (NSAID); Z99.81 Dependence on supplemental oxygen; Z79.51 Long term (current) use of inhaled steroids; Z79.52 Long term (current) use of systemic steroids; Z79.811 Long term (current) use of aromatase inhibitors; Z79.899 Other long term (current) drug therapy; Z85.3 Personal history of malignant neoplasm of breast; Z87.11 Personal history of peptic ulcer disease; Z87.440 Personal history of urinary (tract) infections; Z90.12 Acquired absence of left breast and nipple; Z90.49 Acquired absence of other specified parts of digestive tract; Z90.710 Acquired absence of both cervix and uterus; Z93.3 Colostomy status; Z96.1 Presence of intraocular lens; Z88.6 Allergy status to analgesic agent; Z91.041 Radiographic dye allergy status; Z91.048 Other nonmedicinal substance allergy status; Z88.5 Allergy status to narcotic agent; Z87.01 Personal history of pneumonia (recurrent); Z98.42 Cataract extraction status, left eye; Z98.41 Cataract extraction status, right eye; Z87.19 Personal history of other diseases of the digestive system
CPT/HCPCS: 36415; 71045; 80053; 83735; 83880; 84443; 84484; 85025; 85379; 85610; 85730; 87636; 93005; 94640; 94760; 96360; 96361; 99291

== ENCOUNTER 2021-04-22 15:23 | Observation (INO) | payer MEDICARE ==
[2021-04-22] MEDS ORDERED: ALBUTEROL HFA INHALER INHALATION STA (15:40)
[2021-04-22] MEDS ORDERED: MAGNESIUM SULFATE-D5W PMX 1 GM in DEXTROSE/WATER 1 100ML.BAG IVPB STA (15:40)
--- NOTE | 2021-04-22 15:49 | ED ---
General Adult HPI - General Stated complaint: SOB Time Seen by Provider: 04/22/21 15:27 Source: RN notes reviewed, old records reviewed - History of Present Illness Initial comments: Patient is a 80-year-old female with past medical history remarkable for chronic hypoxic respiratory failure on 3 L on nasal cannula, cancer, colostomy, hypertension who presents emergency Department complaining of shortness of breath has been worse for the last day. She describes as exertional. It feels sicker COPD. Describe a nonproductive cough. States she was accepted for COVID-19. Denies fevers or chills or sick contacts. Has any sore throat. Denies any abdominal pain, nausea, vomiting. States she tried to control be a difficulty breathing at home but was unsuccessful. She states she has also had an intermittent chest discomfort over the last 2 days as well, but currently does not have it. States she does have a history of SVT. Is not on blood thinners. Has no other acute complaints at this time. - Related Data Home Medications Medication Instructions Recorded Confirmed Gabapentin [Neurontin] 100 mg PO TID PRN 09/17/14 04/22/21 ALPRAZolam [Xanax] 1 mg PO TID PRN 06/16/15 04/22/21 Omeprazole [PriLOSEC] 20 mg PO DAILY 03/06/16 04/22/21 Dicyclomine [Bentyl] 10 mg PO BID 11/12/16 04/22/21 Tiotropium [place] [Spiriva] 1 cap INHALATION RT-DAILY 11/12/16 04/22/21 Albuterol Nebulized [Ventolin 2.5 mg INHALATION RT-QID 03/10/18 04/22/21 Nebulized] Celecoxib [CeleBREX] 200 mg PO DAILY 01/22/19 04/22/21 Losartan Potassium 100 mg PO BID 01/22/19 04/22/21 Albuterol Sulfate [Proair Hfa] 2 puff INHALATION RT-QID PRN 02/02/21 04/22/21 Budesonide/Formoterol Fumarate 2 puff INHALATION RT-BID 02/02/21 04/22/21 [Symbicort 160-4.5 Mcg Inhaler] Fluticasone Nasal Rembrandt [Flonase 2 spr EA NOSTRIL DAILY 02/02/21 04/22/21 Nasal Rembrandt] Ipratropium Nebulized [Atrovent 0.5 mg INHALATION RT-QID 02/02/21 04/22/21 Nebulized 0.2 MG/ML] Letrozole [Femara] 2.5 mg PO DAILY 02/02/21 04/22/21 hydroCHLOROthiazide [Hydrodiuril] 12.5 mg PO DAILY 02/02/21 04/22/21 Furosemide [Lasix] 20 mg PO DAILY 03/15/21 04/22/21 predniSONE 10 mg PO DAILY 04/22/21 04/22/21 Previous Rx's Medication Instructions Recorded Diltiazem Cd [Cardizem CD] 120 mg PO DAILY #90 cap 03/16/21 polyethylene glycoL 3350 [Miralax] 17 gm PO DAILY #30 packet 03/16/21 Allergies Allergy/AdvReac Type Severity Reaction Status Date / Time adhesive tape AdvReac tears Verified 04/22/21 18:58 skin-paper tape OK aspirin AdvReac Nausea-with Verified 04/22/21 18:58 325 mg dose codeine AdvReac "makes Verified 04/22/21 18:58 her weird" Iodinated Contrast Media AdvReac Nausea & Verified 04/22/21 18:58 [Iodinated Contrast Media - Vomiting IV Dye] Review of Systems ROS Statement: Those systems with pertinent positive or pertinent negative responses have been documented in the HPI. Review of Systems: CONST: Denies fever EYES: Denies blurry vision ENT: Denies nasal congestion C/V: Denies Chest pain RESP: Endorses shortness of breath GI: Denies abdominal pain : Denies dysuria SKIN: Denies rash. MSK: Denies joint pain. NEURO: Denies headache ROS Other: All systems not noted in ROS Statement are negative. Past Medical History Past Medical History: Asthma, Cancer, COPD, GERD/Reflux, Hypertension, Osteoarthritis (OA), Pneumonia, Respiratory Disorder Additional Past Medical History / Comment(s): L breast cancer with left mastectomy, diverticulosis/diverticular complications and rectovaginal fistula status post fistula repair, colon resection and colostomy placement at [facility], irritable bowel syndrome, peptic ulcer disease, generalized arthritis-multiple joints, leg cramps, frequent UTIs, migraines in the past, bronchitis, allergic rhinitis. 3.5L oxygen via [place] History of Any Multi-Drug Resistant Organisms: None Reported Past Surgical History: Adenoidectomy, Appendectomy, Bladder Surgery, Bowel Resection, Cholecystectomy, Heart Catheterization, Hysterectomy, Orthopedic Surgery, Tonsillectomy Additional Past Surgical History / Comment(s): 09/21/14 cardiac cath with disease-treated medically, cataracts removed bilaterally with lens implants, rt rotator cuff, juan m carpal tunnel, bladder suspension, rectocele repair, hemo rrhoidectomy, colonoscopies, camera endoscopy, EGD, left mastectomy , vaginal rectal fistula repair, bowel resection and colostomy placement Past Anesthesia/Blood Transfusion Reactions: No Reported Reaction Additional Past Anesthesia/Blood Transfusion Reaction / Comment(s): Pt is claustrophobic. Past Psychological History: Anxiety Additional Psychological History / Comment(s): Pt lives with daughter Ana. She is independent. Uses walker and shower chair PRN. She has a nebulizer. Her daughter does the grocery shopping. She has a little anxiety which she occasionally uses xanax with good results. She is claustrophobic. Smoking Status: Former smoker Past Alcohol Use History: None Reported Past Drug Use History: None Reported - Past Family History Father Family Medical History: COPD Additional Family Medical History / Comment(s): Father is . Mother Family Medical History: CVA/TIA, Hypertension Additional Family Medical History / Comment(s): at age 91 Brother(s) Family Medical History: Cancer, Myocardial Infarction ([place]) Daughter(s) Family Medical History: No Reported History Son(s) Family Medical History: No Reported History Sister(s) Family Medical History: Cancer Additional Family Medical History / Comment(s): Sister had metastatic breast cancer and is . General Exam - General Exam Comments Initial Comments: General: Patient is mildly increased work of breathing, with no retractions present. HEAD: Normal with no signs of head trauma. EYES: PERRLA, EOMI, conjunctiva normal, no discharge. ENT: Hearing grossly intact, normal oropharynx. RESPIRATORY: Decreased breath sounds bilaterally with end expiratory wheezing. No rhonchi appreciated. Mildly increased work of breathing. Not hypoxic on normal nasal cannula oxygen settings. C/V: Regular rate and rhythm. S1 and S2 auscultated, no edema, peripheral pulses 2+ and intact throughout ABD: Abd is soft, nontender, nondistended EXT: Normal range of motion, no obvious deformity SKIN: No rashes or lesions observed on exposed skin. NEURO: Alert and oriented 4. No focal deficits. Course Vital Signs 04/22/21 04/22/21 04/22/21 15:47 17:30 18:43 Temperature 98.3 F Pulse Rate 93 92 94 Respiratory 22 18 18 Rate Blood Pressure 178/84 191/89 175/82 O2 Sat by Pulse 100 97 Oximetry 04/22/21 04/22/21 19:35 19:48 Temperature Pulse Rate 89 89 Respiratory Rate Blood Pressure O2 Sat by Pulse Oximetry Medical Decision Making - Medical Decision Making Based on the patient's presentation and physical exam, I have strong suspicion for acute COPD exacerbation. Cannot rule out cardiac etiology at this time either. Therefore we will obtain a cardiopulmonary workup at this time. Patient already received 125 mg of slight Medrol from EMS and therefore will be given albuterol breathing treatment as well as IV magnesium. She'll also receive by mouth aspirin. We will check her for infectious etiology as well. Patient was in agreement this plan. She has required BiPAP in the past, but typically does not need it. States she does not feel she requires at this time. She is saturating well on her normal nasal cannula oxygen level. Patient's EKG shows no signs of acute ischemia. Laboratory studies are remarkable for negative troponin. Remainder of the labs are relatively unremarkable. Patient does have an elevated bicarb at 37. She is Covid and flu negative. Chest x-ray shows COPD and pulmonary fibrosis. No acute changes. On reevaluation, patient's moving air better. Lungs are no longer as tight. There were frequent reevaluation swelling breathing treatments for the patient. I discussed that due to her COPD exacerbation would like to admit her to the hospital. She was in agreement with this plan. Family also states she is due to receive a CT thorax outpatient, and was asking if they could get it done now. I consulted and spoke with the patient's supplemental manager, Dr. Bain who was in agreement this plan. Patient's chest CT revealed emphysema as well as pulmonary fibrosis. No adverse change compared to old exam. I spoke with the admitting team under Dr. Velasco who admits for Dr. Alejandro. He accepted the patient. She was therefore admitted to a [facility] bed in serious condition. Steroids and breathing treatments will be continued. - Lab Data Result diagrams: 04/22/21 15:49 04/22/21 15:49 Lab Results 04/22/21 04/22/21 04/22/21 Range/Units 15:44 15:49 15:49 WBC 8.5 (3.8-10.6) k/uL RBC 3.88 (3.80-5.40) m/uL Hgb 11.6 (11.4-16.0) gm/dL Hct 36.2 (34.0-46.0) % MCV 93.2 D (80.0-100.0) fL MCH 29.8 (25.0-35.0) pg MCHC 32.0 (31.0-37.0) g/dL RDW 14.2 (11.5-15.5) % Plt Count 625 H D (150-450) k/uL MPV 7.1 Neutrophils % 78 % Lymphocytes % 10 % Monocytes % 7 % Eosinophils % 0 % Basophils % 0 % Neutrophils # 6.6 (1.3-7.7) k/uL Lymphocytes # 0.9 L (1.0-4.8) k/uL Monocytes # 0.6 (0-1.0) k/uL Eosinophils # 0.0 (0-0.7) k/uL Basophils # 0.0 (0-0.2) k/uL Hypochromasia Slight PT 9.7 (9.0-12.0) sec INR 0.9 (<1.2) APTT 24.6 (22.0-30.0) sec Sodium (137-145) mmol/L Potassium (3.5-5.1) mmol/L Chloride (98-107) mmol/L Carbon Dioxide (22-30) mmol/L Anion Gap mmol/L BUN (7-17) mg/dL Creatinine (0.52-1.04) mg/dL Est GFR (CKD-EPI)AfAm (>60 ml/min/1.73 sqM) Est GFR (CKD-EPI)NonAf (>60 ml/min/1.73 sqM) Glucose (74-99) mg/dL Calcium (8.4-10.2) mg/dL Magnesium (1.6-2.3) mg/dL Total Bilirubin (0.2-1.3) mg/dL AST (14-36) U/L ALT (4-34) U/L Alkaline Phosphatase (38-126) U/L Troponin I (0.000-0.034) ng/mL Total Protein (6.3-8.2) g/dL Albumin (3.5-5.0) g/dL Coronavirus (PCR) Not Detected (Not Detectd) Influenza Type A RNA (Not Detectd) Influenza Type B (PCR) (Not Detectd) 04/22/21 04/22/21 04/22/21 Range/Units 15:49 15:49 15:49 WBC (3.8-10.6) k/uL RBC (3.80-5.40) m/uL Hgb (11.4-16.0) gm/dL Hct (34.0-46.0) % MCV (80.0-100.0) fL MCH (25.0-35.0) pg MCHC (31.0-37.0) g/dL RDW (11.5-15.5) % Plt Count (150-450) k/uL MPV Neutrophils % % Lymphocytes % % Monocytes % % Eosinophils % % Basophils % % Neutrophils # (1.3-7.7) k/uL Lymphocytes # (1.0-4.8) k/uL Monocytes # (0-1.0) k/uL Eosinophils # (0-0.7) k/uL Basophils # (0-0.2) k/uL Hypochromasia PT (9.0-12.0) sec INR (<1.2) APTT (22.0-30.0) sec Sodium 140 (137-145) mmol/L Potassium 4.7 (3.5-5.1) mmol/L Chloride 102 (98-107) mmol/L Carbon Dioxide 37 H (22-30) mmol/L Anion Gap 1 mmol/L BUN 24 H (7-17) mg/dL Creatinine 0.57 (0.52-1.04) mg/dL Est GFR (CKD-EPI)AfAm >90 (>60 ml/min/1.73 sqM) Est GFR (CKD-EPI)NonAf 89 (>60 ml/min/1.73 sqM) Glucose 95 (74-99) mg/dL Calcium 9.4 (8.4-10.2) mg/dL Magnesium 1.9 (1.6-2.3) mg/dL Total Bilirubin 0.6 (0.2-1.3) mg/dL AST 26 (14-36) U/L ALT 15 (4-34) U/L Alkaline Phosphatase 82 (38-126) U/L Troponin I <0.012 (0.000-0.034) ng/mL Total Protein 5.6 L (6.3-8.2) g/dL Albumin 3.2 L (3.5-5.0) g/dL Coronavirus (PCR) (Not Detectd) Influenza Type A RNA Not Detected (Not Detectd) Influenza Type B (PCR) Not Detected (Not Detectd) - EKG Data -: EKG Interpreted by Me EKG Comments: 12-lead Electrocardiogram Interpretation Note EKG was reviewed and interpreted by myself. 12-lead ECG performed at 1549 is interpreted by me as revealing normal sinus rhythm at a rate of 91 beats per minute. Hartley is normal. OK interval is 122 ms, QRS durations 80 ms, QTc is 420 ms.. There are T-wave inversions seen in the precordial leads V2 through V5 which is seen on prior EKGs. This includes the most recent EKGs from January 2021.. R wave progression across the precordium was satisfactory. By my interpretation this EKG is non-diagnostic for acute ischemia. Disposition Clinical Impression: COPD exacerbation, Chronic respiratory failure with hypoxia, Pulmonary fibrosis Disposition: ADMITTED IP TO THIS HOSP Condition: Serious
[2021-04-22] MEDS ORDERED: ASPIRIN 81 MG PO STA (15:53)
[2021-04-22 16:31] LABS: INR 0.9 (<1.2); Partial Thromboplastin Time 24.6 sec (22.0-30.0); Prothrombin Time 9.7 sec (9.0-12.0)
[2021-04-22 16:35] LABS: ALT 15 U/L (4-34); AST 26 U/L (14-36); African American GFR (CKD) >90 (>60 ml/min/1.73 sqM); Albumin 3.2 g/dL (3.5-5.0); Alkaline Phosphatase 82 U/L (38-126); Anion Gap 1 mmol/L; Blood Urea Nitrogen 24 mg/dL (7-17); Calcium 9.4 mg/dL (8.4-10.2); Carbon Dioxide 37 mmol/L (22-30); Chloride 102 mmol/L (98-107); Glucose 95 mg/dL (74-99); Magnesium 1.9 mg/dL (1.6-2.3); Non-African American GFR(CKD) 89 (>60 ml/min/1.73 sqM); Potassium 4.7 mmol/L (3.5-5.1); Sodium 140 mmol/L (137-145); Total Bilirubin 0.6 mg/dL (0.2-1.3); Total Protein 5.6 g/dL (6.3-8.2)
[2021-04-22 16:38] LABS: Basophils % (A) 0 %; Eosinophils % (A) 0 %; HCT 36.2 % (34.0-46.0); HGB 11.6 gm/dL (11.4-16.0); Hypochromasia Slight; Lymphocytes # (A) 0.9 k/uL (1.0-4.8); Lymphocytes % (A) 10 %; MCH 29.8 pg (25.0-35.0); Mean Platelet Volume 7.1; Monocytes # (A) 0.6 k/uL (0-1.0); Monocytes % (A) 7 %; Neutrophils # (A) 6.6 k/uL (1.3-7.7); Neutrophils % (A) 78 %; RBC 3.88 m/uL (3.80-5.40); RDW 14.2 % (11.5-15.5); WBC 8.5 k/uL (3.8-10.6)
[2021-04-22 16:43] LABS: Platelet Count 625 k/uL (150-450)
[2021-04-22 16:44] LABS: MCV 93.2 fL (80.0-100.0)
[2021-04-22] MEDS ORDERED: IPRATROPIUM-ALBUTEROL 3 ML NEB INHALATION STA (17:13)
--- NOTE | 2021-04-22 17:17 | XR ---
EXAMINATION TYPE: XR chest 2V DATE OF EXAM: 04/22/2021 COMPARISON: 04/12/2021 HISTORY: Short of breath TECHNIQUE: 2 views FINDINGS: There is no heart failure nor confluent pneumonic infiltrate. There is slight coarsening of interstitial markings. There is mild pleural thickening at the lung apices. There are no hilar brett s. There is some flattening of the diaphragm. There is anterior wedging of T7 and T6 vertebra 30%. Th ere is slight thoracic kyphosis. There are clips at the left axilla. There is left mastectomy. IMPRESSION: COPD and pulmonary fibrosis. No definite acute lung disease. No heart failure. Heart and lungs not changed compared to old exam
[2021-04-22] MEDS ORDERED: NALOXONE 0.4 MG/ML 1 ML VIAL IV PRN (17:55)
[2021-04-22] MEDS ORDERED: diphenhydrAMINE 50 MG/ML 1 ML VIAL IVP STA (18:11)
[2021-04-22] MEDS ORDERED: FAMOTIDINE 20 MG/2 ML VIAL IV STA (18:11)
[2021-04-22] MEDS ORDERED: RX INFO: IV CONTRAST WAS GIVEN 1 EACH MISC MISCELLANE PRN (18:12)
[2021-04-22] MEDS: methylPREDNISolone SOD SUCCI 40 MG/ML 1 ML VIAL IV SCH (18:51)
[2021-04-22] MEDS: IPRATROPIUM-ALBUTEROL 3 ML NEB INHALATION SCH ×2 (19:05→19:35)
--- NOTE | 2021-04-22 19:40 | CT ---
EXAMINATION TYPE: CT chest w con DATE OF EXAM: 04/22/2021 COMPARISON: 03/10/2019 HISTORY: Dyspnea. CT DLP: 245.1 mGycm Automated exposure control for dose reduction was used. CONTRAST: Performed with IV Contrast, patient injected with 100ml mL of Isovue 300. Images obtained from the thoracic inlet to the diaphragm with IV contrast. There are Three-D postproc essed images. There is diffuse pulmonary emphysema. There is no pulmonary consolidation. There is some mild reticul ar interstitial density in the lingula left upper lobe. There is no pleural effusion. Heart size is n ormal. There is no pericardial effusion. There are no hilar masses. There is no mediastinal adenopath y. There is thoracic kyphotic deformity with anterior wedging of 2 midthoracic vertebra at the level of T6 and T7 with 25% loss of height. I see no focal bone destruction. Sternum is intact. The upper abdo duglas soft tissues are intact. IMPRESSION: Emphysema. Pulmonary fibrotic changes at the lung apices. Minimal fibrotic changes in the lingula lef t upper lobe. No suspicious pulmonary mass. No adverse change compared to old exam.
[2021-04-22] MEDS ORDERED: GABAPENTIN 100 MG CAP PO PRN (19:53)
[2021-04-22] MEDS ORDERED: KETOROLAC 15 MG/ML 1 ML VIAL IVP STA (19:54)
[2021-04-22] MEDS: SODIUM CHLORIDE 0.9% 1,000 ML IV SCH (20:26)
[2021-04-22] MEDS ORDERED: ALBUTEROL NEBULIZED 2.5 MG/3 ML INHALATION PRN (20:27)
[2021-04-22] MEDS: DICYCLOMINE 10 MG CAP PO SCH (20:35)
[2021-04-22] MEDS: HEPARIN SODIUM,PORCINE/PF 5,000 UNIT/0.5 ML SYRINGE SQ SCH (20:36)
[2021-04-22] MEDS: LOSARTAN 50 MG TAB PO SCH (20:36)
[2021-04-23] MEDS: methylPREDNISolone SOD SUCCI 40 MG/ML 1 ML VIAL IV SCH ×5 (00:08→22:10)
[2021-04-23] MEDS: SYMBICORT 160-4.5 MCG INHALER INHALATION SCH ×3 (00:39→19:35)
[2021-04-23] MEDS: IPRATROPIUM-ALBUTEROL 3 ML NEB INHALATION SCH ×7 (00:41→21:51)
[2021-04-23] MEDS: ALPRAZolam 1 MG TAB PO PRN ×3 (05:44→20:56)
[2021-04-23] MEDS: polyethylene glycoL 3350 17 GM POWD.PACK PO SCH (07:17)
[2021-04-23] MEDS: hydroCHLOROthiazide 12.5 MG CAP PO SCH (07:18)
[2021-04-23] MEDS: HEPARIN SODIUM,PORCINE/PF 5,000 UNIT/0.5 ML SYRINGE SQ SCH ×2 (07:18→19:46)
[2021-04-23] MEDS: FUROSEMIDE 20 MG TAB PO SCH (07:18)
[2021-04-23] MEDS: FLUTICASONE 50MCG/SPRAY NASAL 16GM EA NOSTRIL SCH (07:18)
[2021-04-23] MEDS: DICYCLOMINE 10 MG CAP PO SCH ×2 (07:19→19:46)
[2021-04-23] MEDS: LOSARTAN 50 MG TAB PO SCH ×2 (07:19→19:45)
[2021-04-23] MEDS: MELOXICAM 7.5 MG TAB PO SCH (07:19)
[2021-04-23] MEDS: DILTIAZEM CD 120 MG CAP.ER.24H PO SCH (07:19)
[2021-04-23] MEDS: LETROZOLE 2.5 MG TAB PO SCH (07:19)
[2021-04-23] MEDS: PANTOPRAZOLE 40 MG TABLET PO SCH (07:19)
[2021-04-23] MEDS: SODIUM CHLORIDE 0.9% 1,000 ML IV SCH ×2 (07:20→20:54)
[2021-04-23] MEDS ORDERED: NON FORMULARY DRUG (Tiotropium Bromide [Spiriva] 18 MCG Cap.W.Dev) INHALATION SCH (08:00)
[2021-04-23] MEDS ORDERED: ALBUTEROL NEBULIZED 2.5 MG/3 ML INHALATION SCH (08:00)
[2021-04-23] MEDS ORDERED: IPRATROPIUM 0.5 MG/2.5 ML NEBU INHALATION SCH (08:00)
[2021-04-23] MEDS: AZITHROMYCIN 250 MG TAB PO SCH (09:08)
--- NOTE | 2021-04-23 10:27 | P.HPIM ---
History of Present Illness H&P Date: 04/22/21 Chief Complaint: acute respiratory failure, COPD excessive patient, history of breast cancer HISTORY Of PRESENT ILLNESS This is a 80-year-old female patient of Dr. Alejandro with a previous medical history significant for coronary artery disease status post left heart catheterization with the left heart catheterization that was done in September 2014 that showed ostial lesion of the diagonal branch and mild disease of the RCA, normal ejection fraction, hypertension and hypertensive cardiovascular disease with left ventricular hypertrophy, chronic tobacco use and dependence with chronic obstructive pulmonary disease, chronic hypoxic respiratory failure on home O2, GERD, rectovaginal fistula repair, colon resection and colostomy placement done at [facility]. patient has 3 L of nasal cannula oxygen on continue basis at home. She developed to have much worsening symptom of dyspnea and shortness of breath for the last 48 hours become much worse today with minimum exertion she start feeling quite bit sick she has been having nonproductive cough for the last 3 days. Her symptoms become much worse today ended up coming to the emergency department at [facility] where was seen and evaluated original presentation she was quite hypoxic requiring higher oxygen level. After doing up with graft treatment a few times patient finally started feeling slightly but better. She was tested for COVID-19 along with influenza both were negative. Laparotomy value did not show any major abnormality. Patient chest x-ray showed COPD with pulmonary fibrosis. CAT scan of the chest which was requested by her pulmonary doctor earlier as a follow-up CAT scan was performed in the emergency room and still shows emphysema with pulmonary fibrosis change in the lung With no suspicious of pulmonary mass no adverse change compared to normal exam. Patient was loaded with steroid along with updraft treatment [id number] will consult pulmonary admit patient to the hospital. REVIEW OF SYSTEMS Constitutional: No fever, no chills, no night sweats. No weight change. No weakness, fatigue or lethargy. No daytime sleepiness. EENT: No headache. No blurred vision or double vision, no loss of vision. No loss of Hearing, no ringing in the ears, no dizziness. No nasal drainage or congestion. No epistaxis. No sore throat. Lungs: Reports shortness of breath, Reports cough, Reports sputum production. Reports wheezing. Cardiovascular: No chest pain, no lower extremity edema. Reports palpitations. No paroxysmal nocturnal dyspnea. No orthopnea. No lightheadedness or dizziness. No syncopal episodes. Abdominal: No abdominal pain. No nausea, vomiting. No diarrhea. No constipation. No bloody or tarry stools. No loss of appetite. Genitourinary: No dysuria, increased frequency, urgency. No urinary retention. Musculoskeletal: No myalgias. No muscle weakness, no gait dysfunction, no frequent falls. No back pain. No neck pain. Integumentary: No wounds, no lesions. No rash or pruritus. No unusual bruising. No change in hair or nails. Neurologic: No aphasia. No facial droop. No change in mentation. No head injury. No headache. No paralysis. No paresthesia. Psychiatric: No depression. No anxiety. No mood swings. Endocrine: No abnormal blood sugars. No weight change. No excessive sweating or thirst. No cold intolerance. SOCIAL HISTORY Patient started smoking in 1960 1 pack per day and quit 2019. 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 She is . She has grown children in the area. FAMILY HISTORY Father is from COPD. Mother from stroke with history of hypertension and age 91. Patient has a brother with history of cancer and myocardial infarction. Patient has a sister with metastatic breast cancer and has from this. Children have no major medical problems. PHYSICAL EXAMINATION Gen: This is a frail appearing 80-year-old female. Patient is resting in bed in no acute distress. Currently on nasal cannula oxygen. HEENT: Head is atraumatic, normocephalic. Pupils equal, round. Sclerae is anicteric. NECK: Supple. No JVD. No lymphadenopathy. No thyromegaly. LUNGS: Expiratory wheezing bilaterally Mildintercostal retractions. HEART: Regular rate and rhythm. Systolic murmur. ABDOMEN: Soft. Bowel sounds are present. No masses. No tenderness. EXTREMITIES: No pedal edema. No calf tenderness. NEUROLOGICAL: Patient is awake, alert and oriented x3. Cranial nerves 2 through 12 are grossly intact. ASSESSMENT AND PLAN 1. acute respiratory failure: Secondary to COPD exacerbation, and along with luminary fibrosis. Continue DuoNeb treatments every 6 hours and as needed, Pulmicort 1 mg twice daily, Will add Solu-Medrol and pulmonary be consulted. 2. COPD exacerbation1 hospitalized patient start steroids along with updraft treatment [id number]. Pinnae consultation be done. 3. History of coronary artery disease. Stable at this time. 4. Hyperlipidemia. Low-cholesterol diet. 5. Hypertension and hypertensive cardiovascular disease. Continue losartan 100 mg twice daily, continue hydrochlorothiazide 12.[address] of the chest, repeat one today to exclude any malignancy or any worsening fibrosis. 7. GERD. Continue current Protonix 40 mg orally once every day. 8. Osteoarthritis. Continue meloxicam 15 mg orally once every day. 9. History of tobacco use and dependence. Lovenox 30 mg subcu daily 10. Osteoporosis. Stable. 11. History of rectal vaginal fistula, repaired with colon resection and colostomy placement done at [facility], [facility]. 12. DVT prophylaxis. Heparin subcutaneously every 12 hours. 13. GI prophylaxis. On Protonix 40 mg orally once every day. 14. COVID-19 testing negative. Patient has been hospitalized during a pandemic. Patient will be admitted to the hospital for a minimum of 2 night stay. Past Medical History Past Medical History: Asthma, Cancer, COPD, GERD/Reflux, Hypertension, Osteoarthritis (OA), Pneumonia, Respiratory Disorder Additional Past Medical History / Comment(s): L breast cancer with left mastectomy, diverticulosis/diverticular complications and rectovaginal fistula status post fistula repair, colon resection and colostomy placement at [facility], irritable bowel syndrome, peptic ulcer disease, generalized arthritis-multiple joints, leg cramps, frequent UTIs, migraines in the past, bronchitis, allergic rhinitis. 3.5L oxygen via [place] History of Any Multi-Drug Resistant Organisms: None Reported Past Surgical History: Adenoidectomy, Appendectomy, Bladder Surgery, Bowel Resection, Cholecystectomy, Heart Catheterization, Hysterectomy, Orthopedic Bond rgery, Tonsillectomy Additional Past Surgical History / Comment(s): 09/21/14 cardiac cath with disease-treated medically, cataracts removed bilaterally with lens implants, rt rotator cuff, juan m carpal tunnel, bladder suspension, rectocele repair, hemorrhoidectomy, colonoscopies, camera endoscopy, EGD, left mastectomy , vaginal rectal fistula repair, bowel resection and colostomy placement Past Anesthesia/Blood Transfusion Reactions: No Reported Reaction Additional Past Anesthesia/Blood Transfusion Reaction / Comment(s): Pt is claustrophobic. Past Psychological History: Anxiety Additional Psychological History / Comment(s): Pt lives with daughter Ana. She is independent. Uses walker and shower chair PRN. She has a nebulizer. Her daughter does the grocery shopping. She has a little anxiety which she occasionally uses xanax with good results. She is claustrophobic. Smoking Status: Former smoker Past Alcohol Use History: None Reported Past Drug Use History: None Reported - Past Family History Father Family Medical History: COPD Additional Family Medical History / Comment(s): Father is . Mother Family Medical History: CVA/TIA, Hypertension Additional Family Medical History / Comment(s): at age 91 Brother(s) Family Medical History: Cancer, Myocardial Infarction (MD) Daughter(s) Family Medical History: No Reported History Son(s) Family Medical History: No Reported History Sister(s) Family Medical History: Cancer Additional Family Medical History / Comment(s): Sister had metastatic breast cancer and is . Medications and Allergies Home Medications Medication Instructions Recorded Confirmed Type Gabapentin [Neurontin] 100 mg PO TID PRN 09/17/14 04/22/21 History ALPRAZolam [Xanax] 1 mg PO TID PRN 06/16/15 04/22/21 History Omeprazole [PriLOSEC] 20 mg PO DAILY 03/06/16 04/22/21 History Dicyclomine [Bentyl] 10 mg PO BID 11/12/16 04/22/21 History Tiotropium Solen [Spiriva] 1 cap INHALATION RT-DAILY 11/12/16 04/22/21 History Albuterol Nebulized [Ventolin 2.5 mg INHALATION RT-QID 03/10/18 04/22/21 History Nebulized] Celecoxib [CeleBREX] 200 mg PO DAILY 01/22/19 04/22/21 History Losartan Potassium 100 mg PO BID 01/22/19 04/22/21 History Albuterol Sulfate [Proair Hfa] 2 puff INHALATION RT-QID PRN 02/02/21 04/22/21 History Budesonide/Formoterol Fumarate 2 puff INHALATION RT-BID 02/02/21 04/22/21 History [Symbicort 160-4.5 Mcg Inhaler] Fluticasone Nasal [place] [Flonase 2 spr EA NOSTRIL DAILY 02/02/21 04/22/21 History Nasal [place]] Ipratropium Nebulized [Atrovent 0.5 mg INHALATION RT-QID 02/02/21 04/22/21 History Nebulized 0.2 MG/ML] Letrozole [Femara] 2.5 mg PO DAILY 02/02/21 04/22/21 History hydroCHLOROthiazide [Hydrodiuril] 12.5 mg PO DAILY 02/02/21 04/22/21 History Furosemide [Lasix] 20 mg PO DAILY 03/15/21 04/22/21 History Diltiazem Cd [Cardizem CD] 120 mg PO DAILY #90 cap 03/16/21 04/22/21 Rx polyethylene glycoL 3350 [Miralax] 17 gm PO DAILY #30 packet 03/16/21 04/22/21 Rx predniSONE 10 mg PO DAILY 04/22/21 04/22/21 History Allergies Allergy/AdvReac Type Severity Reaction Status Date / Time adhesive tape AdvReac tears Verified 04/22/21 18:58 skin-paper tape OK aspirin AdvReac Nausea-with Verified 04/22/21 18:58 325 mg dose codeine AdvReac "makes Verified 04/22/21 18:58 her weird" Iodinated Contrast Media AdvReac Nausea & Verified 04/22/21 18:58 [Iodinated Contrast Media - Vomiting IV Dye] Physical Exam Vitals: Vital Signs Temp Pulse Resp BP Pulse Ox 04/22/21 19:48 89 04/22/21 19:35 89 04/22/21 18:43 94 18 175/82 97 04/22/21 17:30 92 18 191/89 04/22/21 15:47 98.3 F 93 22 178/84 100 Intake and Output 04/22/21 04/22/21 04/22/21 06:59 14:59 22:59 Other: Weight 54.885 kg Results CBC & Chem 7: 04/22/21 15:49 04/22/21 15:49 Labs: Abnormal Lab Results - Last 24 Hours (Table) 04/22/21 04/22/21 Range/Units 15:49 15:49 Plt Count 625 H D (150-450) k/uL Lymphocytes # 0.9 L (1.0-4.8) k/uL Carbon Dioxide 37 H (22-30) mmol/L BUN 24 H (7-17) mg/dL Total Protein 5.6 L (6.3-8.2) g/dL Albumin 3.2 L (3.5-5.0) g/dL
[2021-04-23 10:59] LABS: Basophils # (A) 0.03 X 10*3/uL (0.00-0.10); Basophils % (A) 0.4 %; Eosinophils # (A) 0 X 10*3/uL (0.04-0.35); Eosinophils % (A) 0 %; HCT 40.9 % (37.2-46.3); Lymphocytes # (A) 0.34 X 10*3/uL (0.90-5.00); Lymphocytes % (A) 4.1 %; MCHC 29.3 g/dL (32.0-37.0); MCV 95.6 fL (80.0-97.0); Mean Platelet Volume 8.8 fL (9.5-12.2); Monocytes # (A) 0.17 X 10*3/uL (0.20-1.00); Neutrophils # (A) 7.68 X 10*3/uL (1.80-7.70); Neutrophils % (A) 92.2 %; Platelet Count 624 X 10*3/uL (140-440); RBC 4.28 X 10*6/uL (4.10-5.20); RDW 13.4 % (11.5-14.5); WBC 8.33 X 10*3/uL (4.50-10.00)
[2021-04-23 12:06] LABS: Glucose,Whole Blood 150 mg/dL (75-99)
[2021-04-23 12:11] LABS: African American GFR (CKD) 80.8 (60.0-200.0); Anion Gap 17.5 mmol/L (10.00-18.00); BUN/Creat Ratio 23.13 Ratio (12.00-20.00); Blood Urea Nitrogen 18.6 mg/dL (9.0-27.0); Calcium 9.5 mg/dL (8.7-10.3); Carbon Dioxide 25.2 mmol/L (20.0-27.5); Non-African American GFR(CKD) 69.7 (60.0-200.0)
--- NOTE | 2021-04-23 12:13 | P.PN ---
Subjective Progress Note Date: 04/23/21 HISTORY Of PRESENT ILLNESS This is a 80-year-old female patient of Dr. Alejandro with a previous medical history significant for coronary artery disease status post left heart catheterization with the left heart catheterization that was done in September 2014 that showed ostial lesion of the diagonal branch and mild disease of the RCA, normal ejection fraction, hypertension and hypertensive cardiovascular disease with left ventricular hypertrophy, chronic tobacco use and dependence with chronic obstructive pulmonary disease, chronic hypoxic respiratory failure on home O2, GERD, rectovaginal fistula repair, colon resection and colostomy placement done at [facility]. patient has 3 L of nasal cannula oxygen on continue basis at home. She developed to have much worsening symptom of dyspnea and shortness of breath for the last 48 hours become much worse today with minimum exertion she start feeling quite bit sick she has been having nonproductive cough for the last 3 days. Her symptoms become much worse today ended up coming to the emergency department at [facility] where was seen and evaluated original presentation she was quite hypoxic requiring higher oxygen level. After doing up with graft treatment a few times patient finally started feeling slightly but better. She was tested for COVID-19 along with influenza both were negative. L aparotomy value did not show any major abnormality. Patient chest x-ray showed COPD with pulmonary fibrosis. CAT scan of the chest which was requested by her pulmonary doctor earlier as a follow-up CAT scan was performed in the emergency room and still shows emphysema with pulmonary fibrosis change in the lung With no suspicious of pulmonary mass no adverse change compared to normal exam. Patient was loaded with steroid along with updraft treatment [id number] will consult pulmonary admit patient to the hospital. 04/23: Patient is found sitting up in bed in no acute distress. Patient states that she is still feeling not the greatest however she is feeling better than yesterday. She does have a walker at the bedside for assistance in ambulation. She is COVID-19 at this time. Patient has been afebrile, tachycardic at 108, blood pressure 164/76, respirations 16, pulse ox 98% on 4 L. W BC 8.3, potassium 4.7, BUN 24, creatinine 0.57. REVIEW OF SYSTEMS Constitutional: No fever, no chills, no night sweats. No weight change. No weakness, fatigue or lethargy. No daytime sleepiness. EENT: No headache. No blurred vision or double vision, no loss of vision. No loss of Hearing, no ringing in the ears, no dizziness. No nasal drainage or congestion. No epistaxis. No sore throat. Lungs: Reports shortness of breath, Reports cough, Reports sputum production. Reports wheezing. Cardiovascular: No chest pain, no lower extremity edema. Reports palpitations. No paroxysmal nocturnal dyspnea. No orthopnea. No lightheadedness or dizziness. No syncopal episodes. Abdominal: No abdominal pain. No nausea, vomiting. No diarrhea. No constipation. No bloody or tarry stools. No loss of appetite. Genitourinary: No dysuria, increased frequency, urgency. No urinary retention. Musculoskeletal: No myalgias. No muscle weakness, no gait dysfunction, no frequent falls. No back pain. No neck pain. Integumentary: No wounds, no lesions. No rash or pruritus. No unusual bruising. No change in hair or nails. Neurologic: No aphasia. No facial droop. No change in mentation. No head injury. No headache. No paralysis. No paresthesia. Psychiatric: No depression. No anxiety. No mood swings. Endocrine: No abnormal blood sugars. No weight change. No excessive sweating or thirst. No cold intolerance. PHYSICAL EXAMINATION Gen: This is a frail appearing 80-year-old female. Patient is resting in bed in no acute distress. Currently on nasal cannula oxygen. HEENT: Head is atraumatic, normocephalic. Pupils equal, round. Sclerae is anicteric. NECK: Supple. No JVD. No lymphadenopathy. No thyromegaly. LUNGS: Expiratory wheezing bilaterally Mildintercostal retractions. HEART: Regular rate and rhythm. Systolic murmur. ABDOMEN: Soft. Bowel sounds are present. No masses. No tenderness. EXTREMITIES: No pedal edema. No calf tenderness. NEUROLOGICAL: Patient is awake, alert and oriented x3. Cranial nerves 2 through 12 are grossly intact. ASSESSMENT AND PLAN 1. acute respiratory failure: Secondary to COPD exacerbation, and along with pulmonary fibrosis. Continue DuoNeb treatments every 6 hours and as needed, Pulmicort 1 mg twice daily, Will add Solu-Medrol and pulmonary be consulted. 2. COPD exacerbation. start steroids along with updraft treatment around-the- clock. Pinnae consultation be done. 3. History of coronary artery disease. Stable at this time. 4. Hyperlipidemia. Low-cholesterol diet. 5. Hypertension and hypertensive cardiovascular disease. Continue losartan 100 mg twice daily, continue hydrochlorothiazide 12.[address] of the chest, repeat one today to exclude any malignancy or any worsening fibrosis. 7. GERD. Continue current Protonix 40 mg orally once every day. 8. Osteoarthritis. Continue meloxicam 15 mg orally once every day. 9. History of tobacco use and dependence. Lovenox 30 mg subcu daily 10. Osteoporosis. Stable. 11. History of rectal vaginal fistula, repaired with colon resection and co lostomy placement done at [facility], [facility]. 12. DVT prophylaxis. Heparin subcutaneously every 12 hours. 13. GI prophylaxis. On Protonix 40 mg orally once every day. 14. COVID-19 testing negative. Patient has been hospitalized during a pandemic. Patient will be admitted to the hospital for a minimum of 2 night stay. Discharge plan: More than likely home. Impression and plan of care have been directed as dictated by the signing physician. Evelia Caro nurse practitioner acting as scribe for signing physician. Objective - Vital Signs Vital signs: Vital Signs Temp 97.8 F 04/23/21 07:00 Pulse 108 H 04/23/21 11:58 Resp 18 04/23/21 07:00 BP 164/76 04/23/21 07:00 Pulse Ox 98 04/23/21 07:00 Intake & Output 04/22/21 04/23/21 04/23/21 18:59 06:59 18:59 Intake Total 120 Balance 120 Weight 54.885 kg 54.885 kg Intake: Oral 120 Other: # Voids 2 - Labs CBC & Chem 7: 04/23/21 07:58 04/22/21 15:49 Labs: Abnormal Lab Results - Last 24 Hours (Table) 04/22/21 04/22/21 04/23/21 Range/Units 15:49 15:49 07:58 MCHC 29.3 L (32.0-37.0) g/dL Plt Count 625 H D 624 H (150-450) k/uL MPV 8.8 L (9.5-12.2) fL Immature Gran # 0.11 H (0.00-0.04) X 10*3/uL Lymphocytes # 0.9 L 0.34 L (1.0-4.8) k/uL Monocytes # 0.17 L (0.20-1.00) X 10*3/uL Eosinophils # 0 L (0.04-0.35) X 10*3/uL Carbon Dioxide 37 H (22-30) mmol/L BUN 24 H (7-17) mg/dL POC Glucose (mg/dL) (75-99) mg/dL Total Protein 5.6 L (6.3-8.2) g/dL Albumin 3.2 L (3.5-5.0) g/dL 04/23/21 Range/Units 12:04 MCHC (32.0-37.0) g/dL Plt Count (150-450) k/uL MPV (9.5-12.2) fL Immature Gran # (0.00-0.04) X 10*3/uL Lymphocytes # (1.0-4.8) k/uL Monocytes # (0.20-1.00) X 10*3/uL Eosinophils # (0.04-0.35) X 10*3/uL Carbon Dioxide (22-30) mmol/L BUN (7-17) mg/dL POC Glucose (mg/dL) 150 H (75-99) mg/dL Total Protein (6.3-8.2) g/dL Albumin (3.5-5.0) g/dL
[2021-04-23] MEDS: INSULIN ASPART (NovoLOG) 100 UNIT/ML VIAL SQ SCH ×3 (12:16→21:10)
[2021-04-23] MEDS: IBUPROFEN 200 MG TAB PO PRN (12:35)
[2021-04-23] MEDS ORDERED: IPRATROPIUM-ALBUTEROL 3 ML NEB INHALATION PRN (16:09)
--- NOTE | 2021-04-23 16:09 | P.CNPUL ---
History of Present Illness Consult date: 04/23/21 Requesting physician: Raza Velasco Reason for consult: dyspnea, cough, COPD, hypoxemia, abnormal CXR/CT Chief complaint: Shortness of breath. History of present illness: Pulmonary consult dated 04/23/2021. 80-year-old female well-known to my service, who presents to the emergency department on May 02, complaining of increasing shortness of breath. The patient is on 3 L of oxygen 24/7, chronic hypoxemic respiratory failure. The patient has any severe COPD. The patient was recently in my office, and was treated for a COPD exacerbation with corticosteroids and antibiotics. She presents to the emergency room with increasing shortness of breath, tightness, cough, wheezing, and occasional limited phlegm production. She has not been feeling well for the last 2 or 3 days. Cough is mostly nonproductive. The patient was admitted to the hospital a diagnosis of COPD exacerbation. The patient tested negative for coronavirus infection, and has been vaccinated against coronavirus. White count 8.33, hemoglobin 12, hematocrit 40.9, and platelet count 624,000. Sodium 142, potassium 5, chlorides 99, CO2 25, anion gap 18, BUN 19, creatinine 0.8. Chest x-ray shows primarily changes of COPD. No active lung disease noted. Chest CT done with contrast shows emphysematous changes, pulmonary fibrotic changes at the lung apices, and some fibrotic changes in the lingula and left upper lobe. There was no pulmonary mass noted. Review of Systems REVIEW OF SYSTEMS: CONSTITUTIONAL: [Negative.] NEUROLOGIC: [ Negative.] HEENT: [ Negative.] CARDIAC: [Negative.] PULMONARY: Shortness of breath, cough, wheezing, chest tightness, and occasional phlegm production. GI: [Negative.] : [Negative.] RHEUMATOLOGIC: [ Negative.] IMMUNOLOGIC: [ Negative.] ENDOCRINE: [Negative. ] DERMATOLOGIC: [Negative.] Past Medical History Past Medical History: Asthma, Cancer, COPD, GERD/Reflux, Hypertension, Osteoarthritis (OA), Pneumonia, Respiratory Disorder Additional Past Medical History / Comment(s): L breast cancer with left mastectomy, diverticulosis/diverticular complications and rectovaginal fistula status post fistula repair, colon resection and colostomy placement at [facility], irritable bowel syndrome, peptic ulcer disease, generalized arthritis-multiple joints, leg cramps, frequent UTIs, migraines in the past, bronchitis, allergic rhinitis. 3.5L oxygen via [place] History of Any Multi-Drug Resistant Organisms: None Reported Past Surgical History: Adenoidectomy, Appendectomy, Bladder Surgery, Bowel Resection, Cholecystectomy, Heart Catheterization, Hysterectomy, Orthopedic Surgery, Tonsillectomy Additional Past Surgical History / Comment(s): 09/21/14 cardiac cath with disease-treated medically, cataracts removed bilaterally with lens implants, rt rotator cuff, juan m carpal tunnel, bladder suspension, rectocele repair, hemorrhoidectomy, colonoscopies, camera endoscopy, EGD, left mastectomy , vaginal rectal fistula repair, bowel resection and colostomy placement Past Anesthesia/Blood Transfusion Reactions: No Reported Reaction Additional Past Anesthesia/Blood Transfusion Reaction / Comment(s): Pt is claustrophobic. Past Psychological History: Anxiety Additional Psychological History / Comment(s): Pt lives with daughter Ana. She is independent. Uses walker and shower chair PRN. She has a nebulizer. Her daughter does the grocery shopping. She has a little anxiety which she occasionally uses xanax with good results. She is claustrophobic. Smoking Status: Former smoker Past Alcohol Use History: None Reported Past Drug Use History: None Reported - Past Family History Father Family Medical History: COPD Additional Family Medical History / Comment(s): Father is . Mother Family Medical History: CVA/TIA, Hypertension Additional Family Medical History / Comment(s): at age 91 Brother(s) Family Medical History: Cancer, Myocardial Infarction ([place]) Daughter(s) Family Medical History: No Reported History Son(s) Family Medical History: No Reported History Sister(s) Family Medical History: Cancer Additional Family Medical History / Comment(s): Sister had metastatic breast cancer and is . Medications and Allergies Home Medications Medication Instructions Recorded Confirmed Type Gabapentin [Neurontin] 100 mg PO TID PRN 09/17/14 04/22/21 History ALPRAZolam [Xanax] 1 mg PO TID PRN 06/16/15 04/22/21 History Omeprazole [PriLOSEC] 20 mg PO DAILY 03/06/16 04/22/21 History Dicyclomine [Bentyl] 10 mg PO BID 11/12/16 04/22/21 History Tiotropium [place] [Spiriva] 1 cap INHALATION RT-DAILY 11/12/16 04/22/21 History Albuterol Nebulized [Ventolin 2.5 mg INHALATION RT-QID 03/10/18 04/22/21 History Nebulized] Celecoxib [CeleBREX] 200 mg PO DAILY 01/22/19 04/22/21 History Losartan Potassium 100 mg PO BID 01/22/19 04/22/21 History Albuterol Sulfate [Proair Hfa] 2 puff INHALATION RT-QID PRN 02/02/21 04/22/21 History Budesonide/Formoterol Fumarate 2 puff INHALATION RT-BID 02/02/21 04/22/21 History [Symbicort 160-4.5 Mcg Inhaler] Fluticasone Nasal [place] [Flonase 2 spr EA NOSTRIL DAILY 02/02/21 04/22/21 Histor y Nasal [place]] Ipratropium Nebulized [Atrovent 0.5 mg INHALATION RT-QID 02/02/21 04/22/21 His tory Nebulized 0.2 MG/ML] Letrozole [Femara] 2.5 mg PO DAILY 02/02/21 04/22/21 History hydroCHLOROthiazide [Hydrodiuril] 12.5 mg PO DAILY 02/02/21 04/22/21 History Furosemide [Lasix] 20 mg PO DAILY 03/15/21 04/22/21 History Diltiazem Cd [Cardizem CD] 120 mg PO DAILY #90 cap 03/16/21 04/22/21 Rx polyethylene glycoL 3350 [Miralax] 17 gm PO DAILY #30 packet 03/16/21 04/22/21 Rx predniSONE 10 mg PO DAILY 04/22/21 04/22/21 History Allergies Allergy/AdvReac Type Severity Reaction Status Date / Time adhesive tape AdvReac tears Verified 04/22/21 18:58 skin-paper tape OK aspirin AdvReac Nausea-with Verified 04/22/21 18:58 325 mg dose codeine AdvReac "makes Verified 04/22/21 18:58 her weird" Iodinated Contrast Media AdvReac Nausea & Verified 04/22/21 18:58 [Iodinated Contrast Media - Vomiting IV Dye] Physical Exam Osteopathic Statement: *. No significant issues noted on an osteopathic structural exam other than those noted in the History and Physical/Consult. Vitals: Vital Signs Temp Pulse Pulse Resp BP BP Pulse Ox 04/23/21 14:48 97.8 F 101 H 17 145/68 97 04/23/21 11:58 108 H 04/23/21 11:48 104 H 04/23/21 08:58 100 04/23/21 08:44 100 04/23/21 07:00 97.8 F 93 18 164/76 98 04/23/21 05:14 101 H 04/23/21 05:09 102 H 04/23/21 01:07 97.5 F L 87 18 154/72 94 L 04/22/21 21:24 98.3 F 90 17 152/62 04/22/21 20:40 100 18 184/72 99 04/22/21 19:48 89 04/22/21 19:35 89 04/22/21 18:43 94 18 175/82 97 04/22/21 17:30 92 18 191/89 Intake and Output 04/23/21 04/23/21 04/23/21 06:59 14:59 22:59 Other: # Voids 2 3 No acute distress, oriented 3. Currently, on 3.5 L nasal O2. Saturations 97%. No conversational dyspnea, or audible wheezing. HEENT examination is grossly unremarkable. Neck supple. Full range of motion. No adenopathy thyromegaly or neck vein distention. Cardiovascular examination reveals regular rhythm rate. S1-S2 normal. No S3 or S4. No discernible murmur noted. Heart sounds are distant. Heart rate 100 bpm. Lungs reveal coarse bilateral rhonchi. No crackles. Occasional wheezes noted. Breath sounds severely diminished throughout. Abdomen soft bowel sounds are heard. No masses or tenderness. Extremities are intact. No cyanosis clubbing or edema. Skin is without rash or lesion. Neurologic examination is brief but nonfocal. Results - Laboratory Findings CBC and BMP: 04/23/21 07:58 04/23/21 07:58 PT/INR, D-dimer PT 9.7 sec (9.0-12.0) 04/22/21 15:49 INR 0.9 (<1.2) 04/22/21 15:49 Abnormal lab findings: Abnormal Labs 04/22/21 04/22/21 04/23/21 15:49 15:49 07:58 MCHC 29.3 L Plt Count 625 H D 624 H MPV 8.8 L Immature Gran # 0.11 H Lymphocytes # 0.9 L 0.34 L Monocytes # 0.17 L Eosinophils # 0 L Carbon Dioxide 37 H BUN 24 H BUN/Creatinine Ratio Glucose POC Glucose (mg/dL) Total Protein 5.6 L Albumin 3.2 L 04/23/21 04/23/21 07:58 12:04 MCHC Plt Count MPV Immature Gran # Lymphocytes # Monocytes # Eosinophils # Carbon Dioxide BUN BUN/Creatinine Ratio 23.13 H Glucose 132 H POC Glucose (mg/dL) 150 H Total Protein Albumin - Diagnostic Findings Chest x-ray: image reviewed CT scan - chest: image reviewed Assessment and Plan Assessment: Acute exacerbation of severe COPD. Chronic hypoxemic respiratory failure. History of left breast cancer, status post left mastectomy. History of gastroesophageal reflux disease. History of hypertension. History of osteoarthritis. History of diverticular disease. Previous history of colon resection and colostomy. Multiple other medical problems and comorbidities. Plan: Plan dated 04/23/2021. The patient is placed on DuoNeb, 4 times a day and when necessary. The patient is ready on Symbicort 160/4.5, 2 puffs twice a day. The patient is receiving Solu-Medrol, 40 mg every 6 hours. Additional recommendations and suggestions are forthcoming. Prognosis is guarded. No suspicious mass on the patient's computed tomography scan of the chest. Time with Patient: Greater than 30
[2021-04-23] MEDS: Acetaminophen-Codeine 300-30mg TAB PO PRN ×2 (16:24→22:10)
[2021-04-23 16:59] LABS: Glucose,Whole Blood 142 mg/dL (75-99)
[2021-04-23 20:18] LABS: Glucose,Whole Blood 309 mg/dL (75-99)
[2021-04-24] MEDS: methylPREDNISolone SOD SUCCI 40 MG/ML 1 ML VIAL IV SCH ×3 (05:28→17:31)
[2021-04-24] MEDS: IPRATROPIUM-ALBUTEROL 3 ML NEB INHALATION SCH ×4 (07:25→20:36)
[2021-04-24] MEDS: SYMBICORT 160-4.5 MCG INHALER INHALATION SCH ×2 (07:25→20:36)
[2021-04-24 07:41] LABS: Glucose,Whole Blood 149 mg/dL (75-99)
[2021-04-24 07:49] LABS: HCT 39.1 % (34.0-46.0); HGB 12.2 gm/dL (11.4-16.0); MCH 28.8 pg (25.0-35.0); MCHC 31.3 g/dL (31.0-37.0); MCV 92.2 fL (80.0-100.0); Mean Platelet Volume 7.8; Platelet Count 629 k/uL (150-450); RBC 4.24 m/uL (3.80-5.40); RDW 14.1 % (11.5-15.5); WBC 12.5 k/uL (3.8-10.6)
[2021-04-24 07:54] LABS: African American GFR (CKD) >90 (>60 ml/min/1.73 sqM); Anion Gap 3 mmol/L; Blood Urea Nitrogen 39 mg/dL (7-17); Calcium 9.7 mg/dL (8.4-10.2); Carbon Dioxide 36 mmol/L (22-30); Chloride 100 mmol/L (98-107); Glucose 133 mg/dL (74-99); Non-African American GFR(CKD) 83 (>60 ml/min/1.73 sqM); Potassium 4.5 mmol/L (3.5-5.1); Sodium 139 mmol/L (137-145)
[2021-04-24] MEDS: INSULIN ASPART (NovoLOG) 100 UNIT/ML VIAL SQ SCH ×4 (09:13→20:55)
[2021-04-24] MEDS: PANTOPRAZOLE 40 MG TABLET PO SCH (09:14)
[2021-04-24] MEDS: FUROSEMIDE 20 MG TAB PO SCH (09:14)
[2021-04-24] MEDS: LOSARTAN 50 MG TAB PO SCH ×2 (09:14→20:55)
[2021-04-24] MEDS: FLUTICASONE 50MCG/SPRAY NASAL 16GM EA NOSTRIL SCH (09:15)
[2021-04-24] MEDS: HEPARIN SODIUM,PORCINE/PF 5,000 UNIT/0.5 ML SYRINGE SQ SCH ×2 (09:15→20:55)
[2021-04-24] MEDS: hydroCHLOROthiazide 12.5 MG CAP PO SCH (09:21)
[2021-04-24] MEDS: DILTIAZEM CD 120 MG CAP.ER.24H PO SCH (09:21)
[2021-04-24] MEDS: DICYCLOMINE 10 MG CAP PO SCH ×2 (09:21→20:55)
[2021-04-24] MEDS: LETROZOLE 2.5 MG TAB PO SCH (09:21)
[2021-04-24] MEDS: AZITHROMYCIN 250 MG TAB PO SCH (09:21)
[2021-04-24] MEDS: polyethylene glycoL 3350 17 GM POWD.PACK PO SCH (09:21)
[2021-04-24] MEDS: MELOXICAM 7.5 MG TAB PO SCH (09:21)
[2021-04-24] MEDS: ALPRAZolam 1 MG TAB PO PRN ×2 (10:33→21:03)
[2021-04-24] MEDS ORDERED: traMADol 50 MG TAB PO PRN (12:21)
[2021-04-24 12:26] LABS: Glucose,Whole Blood 152 mg/dL (75-99)
[2021-04-24] MEDS: SODIUM CHLORIDE 0.9% 1,000 ML IV SCH (12:50)
[2021-04-24] MEDS: GABAPENTIN 100 MG CAP PO SCH ×3 (12:53→21:03)
--- NOTE | 2021-04-24 14:34 | CT ---
EXAMINATION TYPE: CT thor lumbar spine wo con DATE OF EXAM: 04/24/2021 COMPARISON: CT lumbar spine March 27, 2013. Chest CT April 22, 2021. HISTORY: pain, history of breast CA, herniated disc. CT DLP: 1051 mGycm Automated exposure control for dose reduction was used. FINDINGS: Thoracic spine shows prominent kyphosis centered at T6 and T7 level with [id number] h eight loss. Slight scoliotic curvature family coronal images. Sclerosis along the superior T7 endplat e is seen. Osseous structures are demineralized. No acute displaced fracture. No suspicious bony dest ructive or sclerotic osseous lesion. There are 5 lumbar type vertebra are again seen. Slight dextroconvex scoliotic curvature lumbosacral junction redemonstrated. Moderate to severe disc space narrowing with vacuum disc phenomenon at lumbo sacral junction is redemonstrated.Vertebral body heights and disc space heights are otherwise fairly well maintained. Disc herniations at L3-L4 and L4-L5 level sagittal image 17 appears similar to prior study. Smaller disc herniation redemonstrated at L5-S1 level. Sclerotic left iliac lesion is partial ly imaged coronal image 21 presumed benign. No new suspicious focal osseous lesion. Fairly moderate underlying emphysematous changes redemonstrated. Coronary artery calcification in the LAD is redemonstrated. Diffuse scattered thin-walled cysts throughout the liver are again seen. Chol ecystectomy clips are redemonstrated. Moderate calcified plaque throughout the aorta noted. IMPRESSION: No acute fracture or dislocation. No suspicious focal osseous lesions. No acute findings are evident.
--- NOTE | 2021-04-24 15:26 | P.PN ---
Subjective Progress Note Date: 04/24/21 Principal diagnosis: On 04/16/2021 patient seen in follow-up on medical surgical floor, she is breathing comfortably, she is currently on 3 L of oxygen, pulse ox is 98%, denies any worsening breathing, no cough, no wheezing, no complaints of chest discomfort, no fever or chills, vitals signs have been stable. Minimal bibasilar crackles, overall her COPD seems to be improving, his labs have been reviewed, white blood cell count is 12.5, hemoglobin is 12.2, sodium is 139, potassium is 4.5, chloride is 100, CO2 36, B1 is 39, creatinine 0.69. Patient remains on Symbicort, DuoNeb, she is on azithromycin, Rocephin, she is on IV steroids with 40 mg every 6 hours, she is on tramadol for back pain. Her CT of the thoracic and lumbar spine without contrast was completed showing no acute fracture or dislocation, no suspicious focal osseous lesions, no acute findings. Objective - Vital Signs Vital signs: Vital Signs Temp 98.3 F 04/24/21 14:17 Pulse 100 04/24/21 14:17 Resp 17 04/24/21 14:17 BP 137/69 04/24/21 14:17 Pulse Ox 98 04/24/21 14:17 Intake & Output 04/23/21 04/24/21 04/24/21 18:59 06:59 18:59 Other: # Voids 3 2 1 - Exam GENERAL EXAM: Alert, very pleasant, 80-year-old white female, in 3 L of oxygen, resting comfortably in bed, comfortable in no apparent distress. HEAD: Normocephalic/atraumatic. EYES: Normal reaction of pupils, equal size. Conjunctiva pink, sclera white. NOSE: Clear with pink turbinates. THROAT: No erythema or exudates. NECK: No masses, no JVD, no thyroid enlargement, no adenopathy. CHEST: No chest wall deformity. Symmetrical expansion. LUNGS: Equal air entry with shortness sounds, with minimal crackles at bilateral bases, no wheezing, no rhonchi CVS: Regular rate and rhythm, normal S1 and S2, no gallops, no murmurs, no rubs ABDOMEN: Soft, nontender. No hepatosplenomegaly, normal bowel sounds, no guarding or rigidity. EXTREMITIES: No clubbing, no edema, no cyanosis, 2+ pulses and upper and lower extremities. MUSCULOSKELETAL: Muscle strength and tone normal. SPINE: No scoliosis or deformity SKIN: No rashes CENTRAL NERVOUS SYSTEM: Alert and oriented -3. No focal deficits, tone is nor mal in all 4 extremities. PSYCHIATRIC: Alert and oriented -3. Appropriate affect. Intact judgment and insight. - Labs CBC & Chem 7: 04/24/21 06:39 04/24/21 06:39 Labs: Abnormal Lab Results - Last 24 Hours (Table) 04/23/21 04/23/21 04/24/21 Range/Units 16:58 20:16 06:39 WBC 12.5 H (3.8-10.6) k/uL Plt Count 629 H (150-450) k/uL Carbon Dioxide (22-30) mmol/L BUN (7-17) mg/dL Glucose (74-99) mg/dL POC Glucose (mg/dL) 142 H 309 H (75-99) mg/dL 04/24/21 04/24/21 04/24/21 Range/Units 06:39 07:38 12:24 WBC (3.8-10.6) k/uL Plt Count (150-450) k/uL Carbon Dioxide 36 H (22-30) mmol/L BUN 39 H (7-17) mg/dL Glucose 133 H (74-99) mg/dL POC Glucose (mg/dL) 149 H 152 H (75-99) mg/dL Assessment and Plan Plan: Assessment: #1. Acute exacerbation of severe COPD, with recent outpatient treatment. Patient tested negative for COVID 19, and also tested negative for influenza A and B. Chest x-ray showed no definite acute lung disease, showed COPD and pulmonary fibrosis. Chest CT showed emphysema, pulmonary fibrotic changes at the lung apices, and minimal fibrotic changes in the lingula and left upper lobe without suspicious pulmonary mass #2. Severe back pain, CT of the thoracic and lumbar spine showed no acute fracture or dislocation, no suspicious focal osseous lesions, no acute findings. #3. Chronic hypoxic respiratory failure related to severe COPD usually wears 3 L of oxygen on a regular basis #4. Hypertension #5. Osteoarthritis #6. History of left breast cancer with left mastectomy #7. History of diverticulosis and diverticular complications and rectovaginal fistula status post surgical repair #8. Irritable bowel syndrome #9. Anxiety #10. Former smoker Plan: Continue current medical treatment Patient is breathing comfortably, vital signs are stable, she is on 3 L of oxygen this is what she usually wears at home CT of the thoracic and lumbar spine showed no acute findings, no fracture or dislocation of the thoracic or lumbar spine Continue with nebulized and inhaled bronchodilators, Continue IV Solu-Medrol, and antibiotics From pulmonary perspective her COPD exacerbation was very mild, and patient is improving She may be considered for discharge home when cleared by medicine I performed a history & physical examination of the patient and discussed their management with my nurse practitioner, Taylor Leslie. I reviewed the nurse practitioner's note and agree with the documented findings and plan of care. Lung sounds are positive for dim with rales throughout the lung [place]. The findings and the impression was discussed with the patient. I attest to the documentation by the nurse practitioner. Time with Patient: Less than 30
[2021-04-24 17:11] LABS: Glucose,Whole Blood 140 mg/dL (75-99)
--- NOTE | 2021-04-24 19:02 | P.PN ---
Subjective Progress Note Date: 04/24/21 Subjective Progress Note Date: 04/23/21 HISTORY Of PRESENT ILLNESS This is a 80-year-old female patient of Dr. Alejandro with a previous medical history significant for coronary artery disease status post left heart catheterization with the left heart catheterization that was done in September 2014 that showed ostial lesion of the diagonal branch and mild disease of the RCA, normal ejection fraction, hypertension and hypertensive cardiovascular disease with left ventricular hypertrophy, chronic tobacco use and dependence with chr onic obstructive pulmonary disease, chronic hypoxic respiratory failure on home O2, GERD, rectovaginal fistula repair, colon resection and colostomy placement done at [facility]. patient has 3 L of nasal cannula oxygen on continue basis at home. She developed to have much worsening symptom of dyspnea and shortness of breath for the last 48 hours become much worse today with minimum exertion she start feeling quite bit sick she has been having nonproductive cough for the last 3 days. Her symptoms become much worse today ended up coming to the emergency department at [facility] where was seen and evaluated original presentation she was quite hypoxic requiring higher oxygen level. After doing up with graft treatment a few times patient finally started feeling slightly but better. She was tested for COVID-19 along with influenza both were negative. Laparotomy value did not show any major abnormality. Patient chest x-ray showed COPD with pulmonary fibrosis. CAT scan of the chest which was requested by her pulmonary doctor earlier as a follow-up CAT scan was performed in the emergency room and still shows emphysema with pulmonary fibrosis change in the lung With no suspicious of pulmonary mass no adverse change compared to normal exam. Patient was loaded with steroid along with updraft treatment [id number] will consult pulmonary admit patient to the hospital. 04/23: Patient is found sitting up in bed in no acute distress. Patient states that she is still feeling not the greatest however she is feeling better than yesterday. She does have a walker at the bedside for assistance in ambulation. She is COVID-19 at this time. Patient has been afebrile, tachycardic at 108, blood pressure 164/76, respirations 16, pulse ox 98% on 4 L. W BC 8.3, potas sium 4.7, BUN 24, creatinine 0.57. 04/24: Patient has noticeable shortness breath with exertion, however this is chronic for her she mentions, she actually once her back pain on Route lumbar and thoracic pain to be treated, and that the primary reason why she was emergency room, she is on gabapentin 3 times a day when necessary, and is not on any opiates, and is taking ibuprofen, while on prednisone 10 mg daily from home dose. Patient has no pain whenever she M Blades, however this is significant whenever she sits down, suspicious for disc herniation, requesting CT of the lumbar spine, and thoracic region, to evaluate for compression fractures as well as disc herniation, and she has a known history of breast cancer. We'll going to schedule her gabapentin to 100 mg 3 times a day not when necessary, and start tramadol 50 mg 3 times a day when necessary. Patient still on IV Solu-Medrol, she has end-stage COPD, prednisone dependent at home REVIEW OF SYSTEMS Constitutional: No fever, no chills, no night sweats. No weight change. No weakness, fatigue or lethargy. No daytime sleepiness. EENT: No headache. No blurred vision or double vision, no loss of vision. No loss of Hearing, no ringing in the ears, no dizziness. No nasal drainage or congestion. No epistaxis. No sore throat. Lungs: Reports shortness of breath, Reports cough, Reports sputum production. Reports wheezing. Cardiovascular: No chest pain, no lower extremity edema. Reports palpitations. No paroxysmal nocturnal dyspnea. No orthopnea. No lightheadedness or dizziness. No syncopal episodes. Abdominal: No abdominal pain. No nausea, vomiting. No diarrhea. No constipation. No bloody or tarry stools. No loss of appetite. Genitourinary: No dysuria, increased frequency, urgency. No urinary retention. Musculoskeletal: No myalgias. No muscle weakness, no gait dysfunction, no frequent falls. No back pain. No neck pain. Integumentary: No wounds, no lesions. No rash or pruritus. No unusual bruising. No change in hair or nails. Neurologic: No aphasia. No facial droop. No change in mentation. No head injury. No headache. No paralysis. No paresthesia. Psychiatric: No depression. No anxiety. No mood swings. Endocrine: No abnormal blood sugars. No weight change. No excessive sweating or thirst. No cold intolerance. PHYSICAL EXAMINATION Gen: This is a frail appearing 80-year-old female. Patient is resting in bed in no acute distress. Currently on nasal cannula oxygen. HEENT: Head is atraumatic, normocephalic. Pupils equal, round. Sclerae is anicteric. NECK: Supple. No JVD. No lymphadenopathy. No thyromegaly. LUNGS: Expiratory wheezing bilaterally Mildintercostal retractions. HEART: Regular rate and rhythm. Systolic murmur. ABDOMEN: Soft. Bowel sounds are present. No masses. No tenderness. EXTREMITIES: No pedal edema. No calf tenderness. NEUROLOGICAL: Patient is awake, alert and oriented x3. Cranial nerves 2 through 12 are grossly intact. ASSESSMENT AND PLAN 1. acute respiratory failure: Secondary to COPD exacerbation, and along with pulmonary fibrosis. Continue DuoNeb treatments every 6 hours and as needed, Pulmicort 1 mg twice daily, on Solu-Medrol and pulmonary be consulted. 2. COPD exacerbation. start steroids along with updraft treatment [id number]. Pinnae consultation be done. 3. History of coronary artery disease. Stable at this time. 4. Hyperlipidemia. Low-cholesterol diet. 5. Hypertension and hypertensive cardiovascular disease. Continue losartan 100 mg twice daily, continue hydrochlorothiazide 12.[address] of the chest, repeat one today to exclude any malignancy or any worsening fibrosis. 7. GERD. Continue current Protonix 40 mg orally once every day. 8. Osteoarthritis. Continue meloxicam 15 mg orally once every day. 9. History of tobacco use and dependence. Lovenox 30 mg subcu daily 10. Osteoporosis. Stable. 11. History of rectal vaginal fistula, repaired with colon resection and colostomy placement done at [facility], stable. 12. DVT prophylaxis. Heparin subcutaneously every 12 hours. 13. GI prophylaxis. On Protonix 40 mg orally once every day. 14. COVID-19 testing negative. Patient has been hospitalized during a pandemic. 15. Lumbago uncontrolled, with herniated disc symptoms, lumbar area, started on scheduled gabapentin 100 mg 3 times a day not when necessary, and tramadol was initiated, 50 mg every 8 hours when necessary. We will decide on pain manageme nt, with anesthesia in the next 24 hours could be done as an outpatient depending on pulmonary status Patient will be admitted to the hospital for a minimum of 2 night stay. Discharge plan: More than likely home. Current Medications Acetaminophen/Codeine Phosphate (Acetaminophen-Codeine 300-30mg Tab) 2 each PO Q6HR PRN PRN Reason: Pain Last Admin: 04/23/21 22:10 Dose: 2 each Documented by: Albuterol/Ipratropium (Ipratropium-Albuterol 3 Ml Neb) 3 ml INHALATION RT-QID [facility] Last Admin: 04/24/21 11:03 Dose: 3 ml Documented by: Albuterol/Ipratropium (Ipratropium-Albuterol 3 Ml Neb) 3 ml INHALATION RT-Q2H PRN PRN Reason: Shortness Of Breath Or Wheezing Alprazolam (Alprazolam 1 Mg Tab) 1 mg PO TID PRN PRN Reason: Anxiety Last Admin: 04/24/21 10:33 Dose: 1 mg Documented by: Azithromycin (Azithromycin 250 Mg Tab) 250 mg PO DAILY [facility] Last Admin: 04/24/21 09:21 Dose: 250 mg Documented by: Budesonide/Formoterol Fumarate (Symbicort 160-4.5 Mcg Inhaler) 2 puff INHALATION RT-BID [facility] Last Admin: 04/24/21 07:25 Dose: 2 puff Documented by: Dicyclomine HCl (Dicyclomine 10 Mg Cap) 10 mg PO BID [facility] Last Admin: 04/24/21 09:21 Dose: 10 mg Documented by: Diltiazem HCl (Diltiazem Cd 120 Mg Cap.Er.24h) 120 mg PO DAILY [facility] Last Admin: 04/24/21 09:21 Dose: 120 mg Documented by: Fluticasone Propionate (Fluticasone 50mcg/Flora Nasal 16gm) 2 spray EA NOSTRIL DAILY [facility] Last Admin: 04/24/21 09:15 Dose: 1 spray Documented by: Furosemide (Furosemide 20 Mg Tab) 20 mg PO DAILY [facility] Last Admin: 04/24/21 09:14 Dose: 20 mg Documented by: Gabapentin (Gabapentin 100 Mg Cap) 100 mg PO TID PRN PRN Reason: Pain Heparin Sodium (Porcine) (Heparin Sodium,Porcine/Pf 5,000 Unit/0.5 Ml Syringe) 5,000 unit SQ Q12HR [facility] Last Admin: 04/24/21 09:15 Dose: 5,000 unit Documented by: Hydrochlorothiazide (Hydrochlorothiazide 12.5 Mg Cap) 12.5 mg PO DAILY [facility] Last Admin: 04/24/21 09:21 Dose: 12.5 mg Documented by: Sodium Chloride (Saline 0.9%) 1,000 mls @ 75 mls/hr IV .[id number] [facility] Last Admin: 04/23/21 20:54 Dose: Not Given Documented by: Ceftriaxone Sodium 1 gm/ (Sodium Chloride) 50 mls @ 100 mls/hr IVPB Q24HR [facility] Last Admin: 04/24/21 09:13 Dose: 100 mls/hr Documented by: Ibuprofen (Ibuprofen 200 Mg Tab) 200 mg PO Q4HR PRN PRN Reason: Pain Last Admin: 04/23/21 12:35 Dose: 200 mg Documented by: Insulin Aspart (Insulin Aspart (Novolog) 100 Unit/Ml Vial) 0 unit SQ ACHS [facility]; Protocol Last Admin: 04/24/21 09:13 Dose: 1 unit Documented by: Letrozole (Letrozole 2.5 Mg Tab) 2.5 mg PO DAILY [facility] Last Admin: 04/24/21 09:21 Dose: 2.5 mg Documented by: Losartan Potassium (Losartan 50 Mg Tab) 100 mg PO BID [facility] Last Admin: 04/24/21 09:14 Dose: 100 mg Documented by: Meloxicam (Meloxicam 7.5 Mg Tab) 7.5 mg PO DAILY [facility] Last Admin: 04/24/21 09:21 Dose: 7.5 mg Documented by: Methylprednisolone Sodium Succinate (Methylprednisolone Sod Succi 40 Mg/Ml 1 Ml Vial) 40 mg IV Q6HR [facility] Last Admin: 04/24/21 05:28 Dose: 40 mg Documented by: Miscellaneous Information (Rx Info: Iv Contrast Was Given 1 Each Misc) 1 each MISCELLANE DAILY PRN PRN Reason: Per Protocol Stop: 04/24/21 18:12 Naloxone HCl (Naloxone 0.4 Mg/Ml 1 Ml Vial) 0.2 mg IV Q2M PRN PRN Reason: Opioid Reversal Pantoprazole Sodium (Pantoprazole 40 Mg Tablet) 40 mg PO -BRKFST [facility] Last Admin: 04/24/21 09:14 Dose: 40 mg Documented by: Polyethylene Glycol (Polyethylene Glycol 3350 17 Gm Powd.Pack) 17 gm PO DAILY [facility] Last Admin: 04/24/21 09:21 Dose: 17 gm Documented by: Laboratory Results - Last 24 Hours 04/23/21 04/23/21 04/24/21 16:58 20:16 06:39 WBC 12.5 H RBC 4.24 Hgb 12.2 Hct 39.1 MCV 92.2 MCH 28.8 MCHC 31.3 RDW 14.1 Plt Count 629 H MPV 7.8 Sodium Potassium Chloride Carbon Dioxide Anion Gap BUN Creatinine Est GFR (CKD-EPI)AfAm Est GFR (CKD-EPI)NonAf Glucose POC Glucose (mg/dL) 142 H 309 H POC Glu Granulating Machine Operator ID Sophia Lucia Ciara Calcium 04/24/21 04/24/21 06:39 07:38 WBC RBC Hgb Hct MCV MCH MCHC RDW Plt Count MPV Sodium 139 Potassium 4.5 Chloride 100 Carbon Dioxide 36 H Anion Gap 3 BUN 39 H Creatinine 0.69 Est GFR (CKD-EPI)AfAm >90 Est GFR (CKD-EPI)NonAf 83 Glucose 133 H POC Glucose (mg/dL) 149 H POC Glu Granulating Machine Operator ID Selma Ordonez Calcium 9.7 Vital Signs Temp 97.4 F L 04/24/21 07:00 Pulse 103 H 04/24/21 11:18 Resp 18 04/24/21 07:00 BP 172/78 04/24/21 07:00 Pulse Ox 98 04/24/21 07:25 Intake & Output 04/23/21 04/24/21 04/24/21 18:59 06:59 18:59 Other: # Voids 3 2 Objective - Vital Signs Vital signs: Vital Signs Temp 97.4 F L 04/24/21 07:00 Pulse 103 H 04/24/21 11:18 Resp 18 04/24/21 07:00 BP 172/78 04/24/21 07:00 Pulse Ox 98 04/24/21 07:25 Intake & Output 04/23/21 04/24/21 04/24/21 18:59 06:59 18:59 Other: # Voids 3 2 - Labs CBC & Chem 7: 04/24/21 06:39 04/24/21 06:39 Labs: Abnormal Lab Results - Last 24 Hours (Table) 04/23/21 04/23/21 04/23/21 Range/Units 07:58 16:58 20:16 WBC (3.8-10.6) k/uL Plt Count (150-450) k/uL Carbon Dioxide (22-30) mmol/L BUN (7-17) mg/dL BUN/Creatinine Ratio 23.13 H (12.00-20.00) Ratio Glucose 132 H (70-110) mg/dL POC Glucose (mg/dL) 142 H 309 H (75-99) mg/dL 04/24/21 04/24/21 04/24/21 Range/Units 06:39 06:39 07:38 WBC 12.5 H (3.8-10.6) k/uL Plt Count 629 H (150-450) k/uL Carbon Dioxide 36 H (22-30) mmol/L BUN 39 H (7-17) mg/dL BUN/Creatinine Ratio (12.00-20.00) Ratio Glucose 133 H (70-110) mg/dL POC Glucose (mg/dL) 149 H (75-99) mg/dL
[2021-04-24] MEDS: IBUPROFEN 200 MG TAB PO PRN (20:21)
[2021-04-24 20:25] LABS: Glucose,Whole Blood 206 mg/dL (75-99)
[2021-04-25] MEDS: methylPREDNISolone SOD SUCCI 40 MG/ML 1 ML VIAL IV SCH ×2 (00:11→05:29)
[2021-04-25] MEDS: SODIUM CHLORIDE 0.9% 1,000 ML IV SCH (00:14)
[2021-04-25 06:32] VITALS: RESP 16; TEMP 98
[2021-04-25 07:46] LABS: Glucose,Whole Blood 147 mg/dL (75-99)
[2021-04-25] MEDS: HEPARIN SODIUM,PORCINE/PF 5,000 UNIT/0.5 ML SYRINGE SQ SCH (08:08)
[2021-04-25] MEDS: GABAPENTIN 100 MG CAP PO SCH (08:09)
[2021-04-25] MEDS: polyethylene glycoL 3350 17 GM POWD.PACK PO SCH (08:09)
[2021-04-25] MEDS: FUROSEMIDE 20 MG TAB PO SCH (08:09)
[2021-04-25] MEDS: PANTOPRAZOLE 40 MG TABLET PO SCH (08:09)
[2021-04-25] MEDS: LOSARTAN 50 MG TAB PO SCH (08:09)
[2021-04-25] MEDS: AZITHROMYCIN 250 MG TAB PO SCH (08:09)
[2021-04-25] MEDS: DICYCLOMINE 10 MG CAP PO SCH (08:10)
[2021-04-25] MEDS: MELOXICAM 7.5 MG TAB PO SCH (08:10)
[2021-04-25] MEDS: hydroCHLOROthiazide 12.5 MG CAP PO SCH (08:10)
[2021-04-25] MEDS: LETROZOLE 2.5 MG TAB PO SCH (08:10)
[2021-04-25 08:12] VITALS: BP 174/81
[2021-04-25] MEDS: INSULIN ASPART (NovoLOG) 100 UNIT/ML VIAL SQ SCH (08:28)
[2021-04-25] MEDS: FLUTICASONE 50MCG/SPRAY NASAL 16GM EA NOSTRIL SCH (08:56)
[2021-04-25] MEDS: DILTIAZEM CD 120 MG CAP.ER.24H PO SCH (08:56)
[2021-04-25] MEDS: IPRATROPIUM-ALBUTEROL 3 ML NEB INHALATION SCH ×2 (09:15→11:03)
[2021-04-25] MEDS: SYMBICORT 160-4.5 MCG INHALER INHALATION SCH (09:19)
[2021-04-25 11:14] VITALS: PULSE 99
--- NOTE | 2021-04-25 13:38 | P.PN ---
Subjective Progress Note Date: 04/25/21 The patient is seen today 04/25/2021 in follow-up on the regular medical floor. She is currently sitting up at the bedside. Awake and alert in no acute distress. Feeling back to her baseline. No worsening shortness of breath, cough or congestion. Computed tomography scan of the lumbar spine revealed no acute fracture or dislocation. No suspicious focal osseous lesions. No acute findings. There is some levels of disc herniation and stenosis. Blood glucose 147. She's been maintained on bronchodilators, steroids. Objective - Vital Signs Vital signs: Vital Signs Temp 98.0 F 04/25/21 07:00 Pulse 99 04/25/21 11:13 Resp 16 04/25/21 07:00 BP 174/81 04/25/21 07:00 Pulse Ox 98 04/25/21 11:03 Intake & Output 04/24/21 04/25/21 04/25/21 18:59 06:59 18:59 Intake Total 240 Balance 240 Intake: Oral 240 Other: # Voids 1 2 - Exam GENERAL EXAM: Alert, active, pleasant 80-year-old female patient, on 3 L nasal cannula, comfortable in no apparent distress. HEAD: Normocephalic. EYES: Normal reaction of pupils, equal size. NOSE: Clear with pink turbinates. THROAT: No erythema or exudates. NECK: No masses, no JVD. CHEST: No chest wall deformity. LUNGS: Equal air entry with no crackles, wheeze, rhonchi or dullness. Diminished. CVS: S1 and S2 normal with no audible murmur, regular rhythm. ABDOMEN: No hepatosplenomegaly, normal bowel sounds, no guarding or rigidity. SPINE: Kyphosis SKIN: No rashes CENTRAL NERVOUS SYSTEM: No focal deficits, tone is normal in all 4 extremities. EXTREMITIES: There is no peripheral edema. No clubbing, no cyanosis. Peripheral pulses are intact. - Labs CBC & Chem 7: 04/24/21 06:39 04/24/21 06:39 Labs: Abnormal Lab Results - Last 24 Hours (Table) 04/24/21 04/24/21 04/25/21 Range/Units 17:10 20:24 07:45 POC Glucose (mg/dL) 140 H 206 H 147 H (75-99) mg/dL Assessment and Plan Assessment: 1 Acute exacerbation of chronic obstructive pulmonary disease. 2 Severe back pain computed tomography scan of the thoracic and lumbar spine showed no acute fractures 3 Chronic hypoxic respiratory failure related to severe COPD and normally wears 3 L of oxygen at home 4 Hypertension 5 Osteoarthritis 6 History of left-sided breast cancer with left mastectomy 7 History of diverticulitis, complicated by rectovaginal fistula status post surgical repair 8 Irritable bowel syndrome 9 Anxiety 10 Former smoker Plan: The patient was seen and evaluated She is cleared for discharge from the pulmonary standpoint Continue her home oxygen Complete prednisone taper Continue her home pulmonary medications Follow-up in the office in 1-2 weeks' time I, the cosigning physician, performed a history & physical examination of the patient. Lungs sounds are clear but diminished. Maintaining good O2 saturations in the 90s on 3 L/m per nasal cannula. I discussed the assessment and plan of care with my nurse practitioner, Rosi Julio. I attest to the above note as dictated by her.
--- NOTE | 2021-04-25 15:58 | P.DS ---
Providers Date of admission: 04/22/21 19:47 Expected date of discharge: 04/25/21 Attending physician: Raza Velasco Consults: 04/22/21 17:57 Consult Physician Routine Consulting Provider: Kj Bain Reason/Comments: copd exacerbation Do you want consulting provider notified?: Yes [facility]: HISTORY Of PRESENT ILLNESS This is a 80-year-old female patient of Dr. Alejandro with a previous medical history significant for coronary artery disease status post left heart catheterization with the left heart catheterization that was done in September 2014 that showed ostial lesion of the diagonal branch and mild disease of the RCA, normal ejection fraction, hypertension and hypertensive cardiovascular disease with left ventricular hypertrophy, chronic tobacco use and dependence with chronic obstructive pulmonary disease, chronic hypoxic respiratory failure on home O2, GERD, rectovaginal fistula repair, colon resection and colostomy placement done at [facility]. patient has 3 L of nasal cannula oxygen on continue basis at home. She developed to have much worsening symptom of dyspnea and shortness of breath for the last 48 hours become much worse today with minimum exertion she start feeling quite bit sick she has been having nonproductive cough for the last 3 days. Her symptoms become much worse today ended up coming to the emergency department at [facility] where was seen and evaluated original presentation she was quite hypoxic requiring higher oxygen level. After doing up with graft treatment a few times patient finally started feeling slightly but better. She was tested for COVID-19 along with influenza both were negative. Laparotomy value did not show any major abnormality. Patient chest x-ray showed COPD with pulmonary fibrosis. CAT scan of the chest which was requested by her pulmonary doctor earlier as a follow-up CAT scan was performed in the emergency room and still shows emphysema with pulmonary fibrosis change in the lung With no suspicious of pulmonary mass no adverse change compared to normal exam. Patient was loaded with steroid along with updraft treatment [id number] will consult pulmonary admit patient to the hospital. 04/23: Patient is found sitting up in bed in no acute distress. Patient states that she is still feeling not the greatest however she is feeling better than yesterday. She does have a walker at the bedside for assistance in ambulation. She is COVID-19 at this time. Patient has been afebrile, tachycardic at 108, blood pressure 164/76, respirations 16, pulse ox 98% on 4 L. W BC 8.3, potassium 4.7, BUN 24, creatinine 0.57. 04/24: Patient has noticeable shortness breath with exertion, however this is chronic for her she mentions, she actually once her back pain on Route lumbar and thoracic pain to be treated, and that the primary reason why she was emergency room, she is on gabapentin 3 times a day when necessary, and is not on any opiates, and is taking ibuprofen, while on prednisone 10 mg daily from home dose. Patient has no pain whenever she M Blades, however this is significant w henever she sits down, suspicious for disc herniation, requesting CT of the lumbar spine, and thoracic region, to evaluate for compression fractures as well as disc herniation, and she has a known history of breast cancer. We'll going to schedule her gabapentin to 100 mg 3 times a day not when necessary, and start tramadol 50 mg 3 times a day when necessary. Patient still on IV Solu-Medrol, she has end-stage COPD, prednisone dependent at home 04/25: Patient is seen today on the [facility] floor. No respiratory distress. CAT scan of the lumbar spine revealed no acute fracture dislocation. No suspicious focal osseous lesions. No acute findings. There is some level of disc herniation and stenosis. Blood sugars running between 140 and 206. Patient is been seen and followed bipolar medicine and cleared for discharge home. She will be prescribed tramadol for 3 day course, start talking form completed and discussed with the patient. Patient will be discharged home today in stable condition. ASSESSMENT AND PLAN 1. acute respiratory failure: Secondary to COPD exacerbation, and along with pulmonary fibrosis. 2. COPD exacerbation. 3. History of coronary artery disease. 4. Hyperlipidemia. 5. Hypertension and hypertensive cardiovascular disease. 6. abnormal CT of the chest, repeat one today to exclude any malignancy or any worsening fibrosis. 7. GERD. 8. Osteoarthritis, generalized. 9. History of tobacco use and dependence. 10. Osteoporosis. Stable. 11. History of rectal vaginal fistula, repaired with colon resection and colostomy placement done at [facility], [facility]. 12. COVID-19 testing negative. Patient has been hospitalized during a pandemic. 13. Lumbago uncontrolled, with herniated disc symptoms, lumbar area 18. Chronic hypoxic respiratory failure on home O2. Discharge plan: More than likely home. Greater than 35 minutes was utilized and coordinating patient's discharge. Impression and plan of care have been directed as dictated by the signing physician. Keren Daniels nurse practitioner acting as scribe for signing physician. Patient Condition at Discharge: Stable Plan - Discharge Summary New Discharge Prescriptions: New Gabapentin [Neurontin] 100 mg PO TID cap predniSONE 0 mg PO DIRECTED #40 tab Levofloxacin [Levaquin] 500 mg PO DAILY 5 Days #5 tab traMADol HCl [Ultram] 50 mg PO TID PRN #9 tab PRN Reason: Breakthrough Pain Continue ALPRAZolam [Xanax] 1 mg PO TID PRN PRN Reason: Anxiety Omeprazole [PriLOSEC] 20 mg PO DAILY Dicyclomine [Bentyl] 10 mg PO BID Tiotropium [place] [Spiriva] 1 cap INHALATION RT-DAILY Albuterol Nebulized [Ventolin Nebulized] 2.5 mg INHALATION RT-QID Losartan Potassium 100 mg PO BID Celecoxib [CeleBREX] 200 mg PO DAILY Letrozole [Femara] 2.5 mg PO DAILY Fluticasone Nasal [place] [Flonase Nasal [place]] 2 spr EA NOSTRIL DAILY polyethylene glycoL 3350 [Miralax] 17 gm PO DAILY #30 packet predniSONE 10 mg PO DAILY hydroCHLOROthiazide [Hydrodiuril] 12.5 mg PO DAILY Albuterol Sulfate [Proair Hfa] 2 puff INHALATION RT-QID PRN PRN Reason: Shortness Of Breath Ipratropium Nebulized [Atrovent Nebulized 0.2 MG/ML] 0.5 mg INHALATION RT-QID Budesonide/Formoterol Fumarate [Symbicort 160-4.5 Mcg Inhaler] 2 puff INHALATION RT-BID Furosemide [Lasix] 20 mg PO DAILY Diltiazem Cd [Cardizem CD] 120 mg PO DAILY #90 cap Discontinued Gabapentin [Neurontin] 100 mg PO TID PRN PRN Reason: Pain Discharge Medication List ALPRAZolam [Xanax] 1 mg PO TID PRN 06/16/15 [History] Omeprazole [PriLOSEC] 20 mg PO DAILY 03/06/16 [History] Dicyclomine [Bentyl] 10 mg PO BID 11/12/16 [History] Tiotropium [place] [Spiriva] 1 cap INHALATION RT-DAILY 11/12/16 [History] Albuterol Nebulized [Ventolin Nebulized] 2.5 mg INHALATION RT-QID 03/10/18 [History] Celecoxib [CeleBREX] 200 mg PO DAILY 01/22/19 [History] Losartan Potassium 100 mg PO BID 01/22/19 [History] Albuterol Sulfate [Proair Hfa] 2 puff INHALATION RT-QID PRN 02/02/21 [History] Budesonide/Formoterol Fumarate [Symbicort 160-4.5 Mcg Inhaler] 2 puff INHALATION RT-BID 02/02/21 [History] Fluticasone Nasal [place] [Flonase Nasal [place]] 2 spr EA NOSTRIL DAILY 02/02/21 [History] Ipratropium Nebulized [Atrovent Nebulized 0.2 MG/ML] 0.5 mg INHALATION RT-QID 02/02/21 [History] Letrozole [Femara] 2.5 mg PO DAILY 02/02/21 [History] hydroCHLOROthiazide [Hydrodiuril] 12.5 mg PO DAILY 02/02/21 [History] Furosemide [Lasix] 20 mg PO DAILY 03/15/21 [History] Diltiazem Cd [Cardizem CD] 120 mg PO DAILY #90 cap 03/16/21 [Rx] polyethylene glycoL 3350 [Miralax] 17 gm PO DAILY #30 packet 03/16/21 [Rx] predniSONE 10 mg PO DAILY 04/22/21 [History] Gabapentin [Neurontin] 100 mg PO TID cap 04/25/21 [Rx] Levofloxacin [Levaquin] 500 mg PO DAILY 5 Days #5 tab 04/25/21 [Rx] predniSONE 0 mg PO DIRECTED #40 tab 04/25/21 [Rx] traMADol HCl [Ultram] 50 mg PO TID PRN #9 tab 04/25/21 [Rx] Follow up Appointment(s)/Referral(s): [facility], [NON-STAFF] - 1-2 Days Alvin Alejandro DO [Primary Care Provider] - 1 Week Discharge Disposition: HOME WITH HOME HEALTH SERVICES
== END 2021-04-25 11:30 | disposition home health service (06) ==
LOC: EC 15:23 → 6NMEDSUR 19:47
PROVIDERS: ADMIT Internal Medicine Geriatric Medicine; ATTEND Internal Medicine Geriatric Medicine
DX: J96.21 Acute and chronic respiratory failure with hypoxia (principal); J43.9 Emphysema, unspecified; J84.10 Pulmonary fibrosis, unspecified; I11.9 Hypertensive heart disease without heart failure; I25.10 Atherosclerotic heart disease of native coronary artery without angina pectoris; I70.0 Atherosclerosis of aorta; E78.5 Hyperlipidemia, unspecified; Z20.822 Contact with and (suspected) exposure to COVID-19; K21.9 Gastro-esophageal reflux disease without esophagitis; M51.26 Other intervertebral disc displacement, lumbar region; M13.0 Polyarthritis, unspecified; M81.0 Age-related osteoporosis without current pathological fracture; F17.210 Nicotine dependence, cigarettes, uncomplicated; K58.9 Irritable bowel syndrome, unspecified; J30.9 Allergic rhinitis, unspecified; N82.3 Fistula of vagina to large intestine; F40.240 Claustrophobia; K57.90 Diverticulosis of intestine, part unspecified, without perforation or abscess without bleeding; Z79.51 Long term (current) use of inhaled steroids; Z79.52 Long term (current) use of systemic steroids; Z79.811 Long term (current) use of aromatase inhibitors; Z79.899 Other long term (current) drug therapy; Z79.1 Long term (current) use of non-steroidal anti-inflammatories (NSAID); Z88.6 Allergy status to analgesic agent; Z88.5 Allergy status to narcotic agent; Z91.048 Other nonmedicinal substance allergy status; Z96.1 Presence of intraocular lens; Z93.3 Colostomy status; Z98.41 Cataract extraction status, right eye; Z98.42 Cataract extraction status, left eye; Z90.710 Acquired absence of both cervix and uterus; Z90.12 Acquired absence of left breast and nipple; Z90.49 Acquired absence of other specified parts of digestive tract; Z87.440 Personal history of urinary (tract) infections; Z87.11 Personal history of peptic ulcer disease; Z87.42 Personal history of other diseases of the female genital tract; Z87.01 Personal history of pneumonia (recurrent); Z85.3 Personal history of malignant neoplasm of breast; Z86.69 Personal history of other diseases of the nervous system and sense organs; Z82.5 Family history of asthma and other chronic lower respiratory diseases; Z82.49 Family history of ischemic heart disease and other diseases of the circulatory system; Z82.3 Family history of stroke; Z80.9 Family history of malignant neoplasm, unspecified
CPT/HCPCS: 99285; 96376 ×3; 96361 ×2; 96367; 96372 ×4; 96365; 96375; 36415; 94640 ×7; 94760; 93005; 97116; 97110; 97162; 97535; 97166; 80053; 80048 ×2; 83735; 84484; 85025 ×2; 85027; 85610; 85730; 87502; 87635; 71046; 72128; 72131; 71260; G0378 ×4; J1200; J2920 ×4; J0696 ×3; J3475; J1885; Q9967; J1644 ×4

== ENCOUNTER 2021-06-10 12:53 | Inpatient (IN) | payer MEDICARE ==
[2021-06-10] MEDS ORDERED: ALBUTEROL NEBULIZED 2.5 MG/3 ML INHALATION STA (13:08)
[2021-06-10] MEDS ORDERED: methylPREDNISolone SOD SUCCI 125 MG/2 ML VIAL IV STA (13:08)
[2021-06-10] MEDS ORDERED: IPRATROPIUM 0.5 MG/2.5 ML NEBU INHALATION STA (13:08)
--- NOTE | 2021-06-10 13:19 | ED ---
General Adult HPI - General Chief complaint: Shortness of Breath Stated complaint: JADE Time Seen by Provider: 06/10/21 12:54 Source: patient, EMS, RN notes reviewed, old records reviewed Mode of arrival: EMS Limitations: no limitations - History of Present Illness Initial comments: 80-year-old female presents for evaluation of generalized weakness, dyspnea, fatigue. Patient has history of oxygen dependent COPD currently wearing 3-1/2 L by nasal cannula. She's had increased oxygen demand and is wearing 5 L currently. She denies fever. She denies abdominal pain nausea vomiting. She's had increased lethargy and is not been mobile at all. - Related Data Home Medications Medication Instructions Recorded Confirmed ALPRAZolam [Xanax] 1 mg PO TID PRN 06/16/15 06/10/21 Omeprazole [PriLOSEC] 20 mg PO DAILY 03/06/16 06/10/21 Dicyclomine [Bentyl] 10 mg PO BID 11/12/16 06/10/21 Tiotropium [place] [Spiriva] 1 cap INHALATION RT-DAILY 11/12/16 06/10/21 Albuterol Nebulized [Ventolin 2.5 mg INHALATION RT-QID 03/10/18 06/10/21 Nebulized] Celecoxib [CeleBREX] 200 mg PO DAILY 01/22/19 06/10/21 Losartan Potassium 100 mg PO BID 01/22/19 06/10/21 Albuterol Sulfate [Proair Hfa] 2 puff INHALATION RT-QID PRN 02/02/21 06/10/21 Budesonide/Formoterol Fumarate 2 puff INHALATION RT-BID 02/02/21 06/10/21 [Symbicort 160-4.5 Mcg Inhaler] Fluticasone Nasal [place] [Flonase 2 spr EA NOSTRIL DAILY 02/02/21 06/10/21 Nasal [place]] Ipratropium Nebulized [Atrovent 0.5 mg INHALATION RT-QID 02/02/21 06/10/21 Nebulized 0.2 MG/ML] Letrozole [Femara] 2.5 mg PO DAILY 02/02/21 06/10/21 Furosemide [Lasix] 40 mg PO DAILY 03/15/21 06/10/21 predniSONE 10 mg PO DAILY 04/22/21 06/10/21 ALPRAZolam [Xanax] 0.5 mg PO TID@0500,1300,2100 06/10/21 06/10/21 Acetaminophen-Codeine 300-30mg 1 tab PO BID PRN 06/10/21 06/10/21 [Tylenol w/codeine #3] Potassium Chloride ER [K-Dur 20] 20 meq PO DAILY 06/10/21 06/10/21 Previous Rx's Medication Instructions Recorded Diltiazem Cd [Cardizem CD] 120 mg PO DAILY #90 cap 03/16/21 polyethylene glycoL 3350 [Miralax] 17 gm PO DAILY #30 packet 03/16/21 Gabapentin [Neurontin] 100 mg PO TID cap 04/25/21 Allergies Allergy/AdvReac Type Severity Reaction Status Date / Time adhesive tape AdvReac tears Verified 06/10/21 14:20 skin-paper tape OK aspirin AdvReac Nausea-with Verified 06/10/21 14:20 325 mg dose codeine AdvReac "makes Verified 06/10/21 14:20 her weird" Iodinated Contrast Media AdvReac Nausea & Verified 06/10/21 14:20 [Iodinated Contrast Media - Vomiting IV Dye] Review of Systems ROS Statement: Those systems with pertinent positive or pertinent negative responses have been documented in the HPI. ROS Other: All systems not noted in ROS Statement are negative. Past Medical History Past Medical History: Asthma, Cancer, COPD, GERD/Reflux, Hypertension, Osteoarthritis (OA), Pneumonia, Respiratory Disorder Additional Past Medical History / Comment(s): L breast cancer with left mastectomy, diverticulosis/diverticular complications and rectovaginal fistula status post fistula repair, colon resection and colostomy placement at [facility], irritable bowel syndrome, peptic ulcer disease, generalized arthritis-multiple joints, leg cramps, frequent UTIs, migraines in the past, bronchitis, allergic rhinitis. 3.5L oxygen via [place] History of Any Multi-Drug Resistant Organisms: None Reported Past Surgical History: Adenoidectomy, Appendectomy, Bladder Surgery, Bowel Resection, Cholecystectomy, Heart Catheterization, Hysterectomy, Orthopedic Surgery, Tonsillectomy Additional Past Surgical History / Comment(s): 09/21/14 cardiac cath with disease-treated medically, cataracts removed bilaterally with lens implants, rt rotator cuff, juan m carpal tunnel, bladder suspension, rectocele repair, hemorrhoidectomy, colonoscopies, camera endoscopy, EGD, left mastectomy , vaginal rectal fistula repair, bowel resection and colostomy placement Past Anesthesia/Blood Transfusion Reactions: No Reported Reaction Additional Past Anesthesia/Blood Transfusion Reaction / Comment(s): Pt is claustrophobic. Past Psychological History: Anxiety Smoking Status: Former smoker Past Alcohol Use History: None Reported Past Drug Use History: None Reported - Past Family History Father Family Medical History: COPD Additional Family Medical History / Comment(s): Father is . Mother Family Medical History: CVA/TIA, Hypertension Additional Family Medical History / Comment(s): at age 91 Brother(s) Family Medical History: Cancer, Myocardial Infarction (OR) Daughter(s) Family Medical History: No Reported History Son(s) Family Medical History: No Reported History Sister(s) Family Medical History: Cancer Additional Family Medical History / Comment(s): Sister had metastatic breast cancer and is . General Exam Limitations: no limitations General appearance: alert, in distress Head exam: Present: atraumatic, normocephalic ENT exam: Present: mucous membranes dry Respiratory exam: Present: respiratory distress, decreased breath sounds, prolonged expiratory Cardiovascular Exam: Present: regular rate, normal rhythm GI/Abdominal exam: Present: soft. Absent: distended, tenderness, guarding Extremities exam: Present: normal capillary refill, pedal edema Neurological exam: Present: alert, oriented X3, CN II-XII intact. Absent: motor sensory deficit Psychiatric exam: Present: flat affect Skin exam: Present: warm, dry, intact, pallor Course Vital Signs 06/10/21 06/10/21 06/10/21 13:08 13:27 13:30 Temperature 97.9 F Pulse Rate 85 84 Respiratory 26 H 20 Rate Blood Pressure 141/55 141/55 O2 Sat by Pulse 95 94 L Oximetry 06/10/21 06/10/21 06/10/21 13:41 14:00 15:00 Temperature Pulse Rate 87 92 83 Respiratory 26 H 24 Rate Blood Pressure 137/62 143/62 O2 Sat by Pulse 96 98 Oximetry 06/10/21 15:08 Temperature 98 F Pulse Rate 85 Respiratory 24 Rate Blood Pressure 119/52 O2 Sat by Pulse 98 Oximetry EKG Findings - EKG Comments: EKG Findings:: EKG: Sinus rhythm, T-wave abnormality in the precordial leads, as well as aVL. There is no ST segment elevation. Rate of 84, MN interval 127, QRS duration 85, QTC 392 Medical Decision Making - Medical Decision Making 80-year-old female presenting with increased dyspnea, lethargy. Patient is in moderate respiratory distress. Arrival. Decreased air entry bilaterally. She has a stable CBC, elevated CO2 on venous gas of 80. She does appear to have some chronic CO2 retention as well. Her coronavirus testing is negative. Chest x-ray shows an infiltrate predominantly on the left as well as ulnar fibrosis and emphysema. She's given IV steroids, albuterol, Atrovent as well as IV antibiotics in the emergency department. She is maintained on BiPAP for respiratory support and increased ventilation. She will be admitted to Dr. Maldonado who is aware. Pulmonology is placed on consult. - Lab Data Result diagrams: 06/10/21 13:21 06/10/21 13:21 Lab Results 06/10/21 06/10/21 06/10/21 Range/Units 13:21 13:21 13:21 WBC 8.1 (3.8-10.6) k/uL RBC 3.76 L (3.80-5.40) m/uL Hgb 11.5 (11.4-16.0) gm/dL Hct 34.8 (34.0-46.0) % MCV 92.5 (80.0-100.0) fL MCH 30.5 (25.0-35.0) pg MCHC 33.0 (31.0-37.0) g/dL RDW 15.1 (11.5-15.5) % Plt Count 138 L D (150-450) k/uL MPV 7.4 Neutrophils % 87 % Lymphocytes % 5 % Monocytes % 6 % Eosinophils % 0 % Basophils % 0 % Neutrophils # 7.0 (1.3-7.7) k/uL Lymphocytes # 0.4 L (1.0-4.8) k/uL Monocytes # 0.5 (0-1.0) k/uL Eosinophils # 0.0 (0-0.7) k/uL Basophils # 0.0 (0-0.2) k/uL Hypochromasia Slight PT 9.8 (9.0-12.0) sec INR 0.9 (<1.2) APTT 23.8 (22.0-30.0) sec VBG pH (7.31-7.41) VBG pCO2 (37-51) mmHg VBG HCO3 (24-28) mmol/L Sodium 139 (137-145) mmol/L Potassium 4.0 (3.5-5.1) mmol/L Chloride 99 (98-107) mmol/L Carbon Dioxide 41 H* (22-30) mmol/L Anion Gap -1 mmol/L BUN 29 H (7-17) mg/dL Creatinine 0.57 (0.52-1.04) mg/dL Est GFR (CKD-EPI)AfAm >90 (>60 ml/min/1.73 sqM) Est GFR (CKD-EPI)NonAf 89 (>60 ml/min/1.73 sqM) Glucose 213 H (74-99) mg/dL Plasma Lactic Acid Chucky (0.7-2.0) mmol/L Calcium 8.4 (8.4-10.2) mg/dL Magnesium 1.9 (1.6-2.3) mg/dL Total Bilirubin 0.9 (0.2-1.3) mg/dL AST 31 (14-36) U/L ALT 28 (4-34) U/L Alkaline Phosphatase 79 (38-126) U/L Troponin I (0.000-0.034) ng/mL Total Protein 5.5 L (6.3-8.2) g/dL Albumin 3.0 L (3.5-5.0) g/dL Coronavirus (PCR) (Not Detectd) 06/10/21 06/10/21 06/10/21 Range/Units 13:21 13:21 13:21 WBC (3.8-10.6) k/uL RBC (3.80-5.40) m/uL Hgb (11.4-16.0) gm/dL Hct (34.0-46.0) % MCV (80.0-100.0) fL MCH (25.0-35.0) pg MCHC (31.0-37.0) g/dL RDW (11.5-15.5) % Plt Count (150-450) k/uL MPV Neutrophils % % Lymphocytes % % Monocytes % % Eosinophils % % Basophils % % Neutrophils # (1.3-7.7) k/uL Lymphocytes # (1.0-4.8) k/uL Monocytes # (0-1.0) k/uL Eosinophils # (0-0.7) k/uL Basophils # (0-0.2) k/uL Hypochromasia PT (9.0-12.0) sec INR (<1.2) APTT (22.0-30.0) sec VBG pH (7.31-7.41) VBG pCO2 (37-51) mmHg VBG HCO3 (24-28) mmol/L Sodium (137-145) mmol/L Potassium (3.5-5.1) mmol/L Chloride (98-107) mmol/L Carbon Dioxide (22-30) mmol/L Anion Gap mmol/L BUN (7-17) mg/dL Creatinine (0.52-1.04) mg/dL Est GFR (CKD-EPI)AfAm (>60 ml/min/1.73 sqM) Est GFR (CKD-EPI)NonAf (>60 ml/min/1.73 sqM) Glucose (74-99) mg/dL Plasma Lactic Acid [place] 1.5 (0.7-2.0) mmol/L Calcium (8.4-10.2) mg/dL Magnesium (1.6-2.3) mg/dL Total Bilirubin (0.2-1.3) mg/dL AST (14-36) U/L ALT (4-34) U/L Alkaline Phosphatase (38-126) U/L Troponin I 0.013 (0.000-0.034) ng/mL Total Protein (6.3-8.2) g/dL Albumin (3.5-5.0) g/dL Coronavirus (PCR) Not Detected (Not Detectd) 06/10/21 Range/Units 13:21 WBC (3.8-10.6) k/uL RBC (3.80-5.40) m/uL Hgb (11.4-16.0) gm/dL Hct (34.0-46.0) % MCV (80.0-100.0) fL MCH (25.0-35.0) pg MCHC (31.0-37.0) g/dL RDW (11.5-15.5) % Plt Count (150-450) k/uL MPV Neutrophils % % Lymphocytes % % Monocytes % % Eosinophils % % Basophils % % Neutrophils # (1.3-7.7) k/uL Lymphocytes # (1.0-4.8) k/uL Monocytes # (0-1.0) k/uL Eosinophils # (0-0.7) k/uL Basophils # (0-0.2) k/uL Hypochromasia PT (9.0-12.0) sec INR (<1.2) APTT (22.0-30.0) sec VBG pH 7.34 (7.31-7.41) VBG pCO2 79 H* (37-51) mmHg VBG HCO3 42 H (24-28) mmol/L Sodium (137-145) mmol/L Potassium (3.5-5.1) mmol/L Chloride (98-107) mmol/L Carbon Dioxide (22-30) mmol/L Anion Gap mmol/L BUN (7-17) mg/dL Creatinine (0.52-1.04) mg/dL Est GFR (CKD-EPI)AfAm (>60 ml/min/1.73 sqM) Est GFR (CKD-EPI)NonAf (>60 ml/min/1.73 sqM) Glucose (74-99) mg/dL Plasma Lactic Acid [place]ucky (0.7-2.0) mmol/L Calcium (8.4-10.2) mg/dL Magnesium (1.6-2.3) mg/dL Total Bilirubin (0.2-1.3) mg/dL AST (14-36) U/L ALT (4-34) U/L Alkaline Phosphatase (38-126) U/L Troponin I (0.000-0.034) ng/mL Total Protein (6.3-8.2) g/dL Albumin (3.5-5.0) g/dL Coronavirus (PCR) (Not Detectd) Critical Care Time Critical Care Time: Yes Total Critical Care Time: 35 Disposition Clinical Impression: COPD exacerbation, Community acquired pneumonia Disposition: ADMITTED IP TO THIS HOSP Condition: Stable Is patient prescribed a controlled substance at d/c from ED?: No Referrals: Alvin Alejandro DO [Primary Care Provider] - 1-2 days Decision to Admit Reason: Admit from EC Decision Date: 06/10/21 Decision Time: 15:46
[2021-06-10 13:33] LABS: VBG PH 7.34 (7.31-7.41)
[2021-06-10 13:41] LABS: Basophils % (A) 0 %; Eosinophils % (A) 0 %; HCT 34.8 % (34.0-46.0); HGB 11.5 gm/dL (11.4-16.0); Hypochromasia Slight; Lymphocytes # (A) 0.4 k/uL (1.0-4.8); Lymphocytes % (A) 5 %; MCH 30.5 pg (25.0-35.0); MCV 92.5 fL (80.0-100.0); Mean Platelet Volume 7.4; Monocytes # (A) 0.5 k/uL (0-1.0); Monocytes % (A) 6 %; Neutrophils % (A) 87 %; RBC 3.76 m/uL (3.80-5.40); RDW 15.1 % (11.5-15.5); WBC 8.1 k/uL (3.8-10.6)
[2021-06-10 13:43] LABS: Platelet Count 138 k/uL (150-450)
[2021-06-10 13:47] LABS: ALT 28 U/L (4-34); AST 31 U/L (14-36); African American GFR (CKD) >90 (>60 ml/min/1.73 sqM); Alkaline Phosphatase 79 U/L (38-126); Blood Urea Nitrogen 29 mg/dL (7-17); Calcium 8.4 mg/dL (8.4-10.2); Chloride 99 mmol/L (98-107); Glucose 213 mg/dL (74-99); INR 0.9 (<1.2); Magnesium 1.9 mg/dL (1.6-2.3); Non-African American GFR(CKD) 89 (>60 ml/min/1.73 sqM); Partial Thromboplastin Time 23.8 sec (22.0-30.0); Prothrombin Time 9.8 sec (9.0-12.0); Sodium 139 mmol/L (137-145); Total Bilirubin 0.9 mg/dL (0.2-1.3); Total Protein 5.5 g/dL (6.3-8.2)
[2021-06-10 13:53] LABS: Anion Gap -1 mmol/L
[2021-06-10 13:54] LABS: Carbon Dioxide 41 mmol/L (22-30)
--- NOTE | 2021-06-10 14:27 | XR ---
EXAMINATION TYPE: XR chest 1V portable DATE OF EXAM: 06/10/2021 COMPARISON: 04/22/2021 HISTORY: 80 years Female. STUDY INDICATION GIVEN: livier . TECHNIQUE: AP chest radiograph IMPRESSION: Lung bases fibrosis greater on the left. Upper lobe lucencies suggestive of COPD/emphysema without si gnificant change. Increased groundglass like opacities in the left mid and lower pneumothorax or radiograph reflective of developing flexion. Normal cardiomediastinal silhouette. No significant effusion or pneumothorax seen. No acute osseous abnormality seen.
[2021-06-10] MEDS ORDERED: CEFEPIME 2 GM in SODIUM CHLORIDE 0.9% 100 ML IVPB STA (15:24)
[2021-06-10] MEDS ORDERED: AZITHROMYCIN 500 MG in SODIUM CHLORIDE 0.9% 250 ML IVPB STA (15:24)
[2021-06-10] MEDS ORDERED: IPRATROPIUM-ALBUTEROL 3 ML NEB INHALATION PRN (15:43)
[2021-06-10] MEDS: IPRATROPIUM-ALBUTEROL 3 ML NEB INHALATION SCH ×2 (16:52→19:37)
[2021-06-10] MEDS ORDERED: ONDANSETRON 4 MG/2 ML VIAL IVP STA (16:59)
[2021-06-10] MEDS ORDERED: Acetaminophen-Codeine 300-30mg TAB PO PRN (17:49)
[2021-06-10] MEDS: SYMBICORT 160-4.5 MCG INHALER INHALATION SCH (19:37)
[2021-06-10 20:00] LABS: Glucose,Whole Blood 231 mg/dL (75-99)
[2021-06-10] MEDS: methylPREDNISolone SOD SUCCI 125 MG/2 ML VIAL IV SCH ×2 (20:43→23:15)
[2021-06-10] MEDS: LOSARTAN 50 MG TAB PO SCH (20:43)
[2021-06-10] MEDS: DICYCLOMINE 10 MG CAP PO SCH (20:43)
[2021-06-10] MEDS: ALPRAZolam 1 MG TAB PO SCH (20:43)
[2021-06-10] MEDS: INSULIN ASPART (NovoLOG) 100 UNIT/ML VIAL SQ SCH (20:44)
[2021-06-10] MEDS: GABAPENTIN 100 MG CAP PO SCH (20:49)
[2021-06-10] MEDS: CEFEPIME 2 GM in SODIUM CHLORIDE 0.9% 100 ML IVPB SCH (23:15)
[2021-06-11] MEDS: ALPRAZolam 1 MG TAB PO SCH ×3 (06:24→20:51)
[2021-06-11] MEDS: methylPREDNISolone SOD SUCCI 125 MG/2 ML VIAL IV SCH ×4 (06:24→23:36)
[2021-06-11 06:36] LABS: Glucose,Whole Blood 170 mg/dL (75-99)
[2021-06-11] MEDS: INSULIN ASPART (NovoLOG) 100 UNIT/ML VIAL SQ SCH ×4 (06:51→20:50)
[2021-06-11] MEDS: SYMBICORT 160-4.5 MCG INHALER INHALATION SCH ×2 (07:53→20:21)
[2021-06-11] MEDS: IPRATROPIUM-ALBUTEROL 3 ML NEB INHALATION SCH ×5 (07:53→20:21)
[2021-06-11] MEDS: CEFEPIME 2 GM in SODIUM CHLORIDE 0.9% 100 ML IVPB SCH ×3 (09:28→23:36)
[2021-06-11] MEDS: polyethylene glycoL 3350 17 GM POWD.PACK PO SCH (09:28)
[2021-06-11] MEDS: GABAPENTIN 100 MG CAP PO SCH ×3 (09:29→20:51)
[2021-06-11] MEDS: LETROZOLE 2.5 MG TAB PO SCH (09:29)
[2021-06-11] MEDS: FUROSEMIDE 20 MG TAB PO SCH (09:29)
[2021-06-11] MEDS: POTASSIUM CHLORIDE ER 20 MEQ TAB.ER PO SCH (09:29)
[2021-06-11] MEDS: LOSARTAN 50 MG TAB PO SCH ×2 (09:29→20:51)
[2021-06-11] MEDS: PANTOPRAZOLE 40 MG TABLET PO SCH (09:29)
[2021-06-11] MEDS: DICYCLOMINE 10 MG CAP PO SCH ×2 (09:29→20:51)
[2021-06-11] MEDS: MELOXICAM 7.5 MG TAB PO SCH (09:29)
[2021-06-11] MEDS: DILTIAZEM CD 120 MG CAP.ER.24H PO SCH (09:29)
--- NOTE | 2021-06-11 10:52 | P.CNPUL ---
History of Present Illness Consult date: 06/11/21 Reason for consult: dyspnea, COPD History of present illness: 80-year-old female patient is well-known to us pH she presented emergency department yesterday with generalized weakness, fatigue, shortness of breath. The patient is known to have advanced oxygen-dependent COPD and she suctioned dependent that she typically wears around 3.5 L of oxygen by nasal cannula. Her oxygen requirements have been gradually going up at home and she was utilizing 5 L. She was becoming more lethargic and weak and more shortness of breath. Based on that, she presented herself to the emergency department. She was afebrile. She was hemodynamically stable. Her EKG showed no acute abnormalities. She was in significant respiratory distress and the time of arrival and breath sounds are quite diminished bilaterally and the patient was also bronchospastic and wheezy. The blood gases was done and the patient was found to have a pH of 7.34 with a pCO2 of 79 and this was done and intravenous sample. Her serum bicarb was at 41 with a sodium level of 139 and a potassium level of 4.0. Blood sugar was 213. Troponin was negative at 0.013.: COVID 19 testing was negative. LFTs were essentially within normal limits. The white cell count at 8.1 with hemoglobin of 11.5 and a platelet count of 138. Chest x- ray was reviewed and it showed no acute abnormalities. It showed some increased interstitial marking the lung bases and some limited infiltration of the left mid and lower lung [place] and possibly a small left-sided pleural effusion. No significant cardiomegaly. No consolidation or airspace disease. Because of increased shortness of breath, the patient was placed on a BiPAP. She was started on bronchodilators and steroids. She is currently on a BiPAP at a pressure of 10/5 with a FiO2 of 40%. Her generator tidal volume is around 390 mL. Leak is in order of 29 L per minute. Her minute ventilation is around 1.1 with a respiratory rate of 18.. The patient is calm and comfortable. She is arousable. She took her oral medications. She is moving all 4 extremities. She remains afebrile. She was started on IV cefepime as an empiric antibiotic coverage. She remains on IV Solu-Medrol. COVID-19 testing is negative the patient has been vaccinated for COVID-19 Review of Systems Constitutional: Reports fatigue, Reports poor appetite, very limited performance and functional status secondary to her advanced COPD and chronic shortness of breath. Eyes: denies blurred vision, denies decreased vision Ears: deny: decreased hearing Ears, nose, mouth and throat: Reports sore throat Cardiovascular: Reports shortness of breath Respiratory: Reports cough with sputum, Reports dyspnea, Reports wheezing Gastrointestinal: Reports diarrhea, Reports nausea Genitourinary: Denies dysuria, Denies hematuria Musculoskeletal: Reports muscle weakness Integumentary: Denies pruritus, Denies rash Neurological: Denies numbness, Denies weakness Psychiatric: Denies anxiety, Denies depression Endocrine: Denies fatigue, Denies weight change Past Medical History Past Medical History: Cancer, COPD, GERD/Reflux, Hypertension, Osteoarthritis (OA), Pneumonia, Respiratory Disorder Additional Past Medical History / Comment(s): L breast cancer with left mastectomy, diverticulosis/diverticular complications and rectovaginal fistula status post fistula repair, colon resection and colostomy placement at [facility], irritable bowel syndrome, peptic ulcer disease, generalized arthritis-multiple joints, leg cramps, frequent UTIs, migraines in the past, bronchitis, allergic rhinitis. 3.5L oxygen via [place] History of Any Multi-Drug Resistant Organisms: None Reported Past Surgical History: Adenoidectomy, Appendectomy, Bladder Surgery, Bowel Resection, Cholecystectomy, Heart Catheterization, Hysterectomy, Orthopedic Surgery, Tonsillectomy Additional Past Surgical History / Comment(s): 09/21/14 cardiac cath with disease-treated medically, cataracts removed bilaterally with lens implants, rt rotator cuff, juan m carpal tunnel, bladder suspension, rectocele repair, hemorrhoidectomy, colonoscopies, camera endoscopy, EGD, left mastectomy , vaginal rectal fistula repair, bowel resection and colostomy placement Past Anesthesia/Blood Transfusion Reactions: No Reported Reaction Additional Past Anesthesia/Blood Transfusion Reaction / Comment(s): Pt is claustrophobic. Past Psychological History: Anxiety Additional Psychological History / Comment(s): Pt lives with daughter Ana. She is independent. Uses walker and shower chair PRN. She has a nebulizer. Her daughter does the grocery shopping. She has a little anxiety which she occasionally uses xanax with good results. She is claustrophobic. Smoking Status: Former smoker Past Alcohol Use History: None Reported Additional Past Alcohol Use History / Comment(s): Patient started smoking in 1960 1 pack per day and quit 2 weeks ago. 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 She is . She has grown children in the area. Past Drug Use History: None Reported - Past Family History Father Family Medical History: COPD Additional Family Medical History / Comment(s): Father is . Mother Family Medical History: CVA/TIA, Hypertension Additional Family Medical History / Comment(s): at age 91 Brother(s) Family Medical History: Cancer, Myocardial Infarction ([place]) Daughter(s) Family Medical History: No Reported History Son(s) Family Medical History: No Reported History Sister(s) Family Medical History: Cancer Additional Family Medical History / Comment(s): Sister had metastatic breast cancer and is . Medications and Allergies Home Medications Medication Instructions Recorded Confirmed Type ALPRAZolam [Xanax] 1 mg PO TID PRN 06/16/15 06/10/21 History Omeprazole [PriLOSEC] 20 mg PO DAILY 03/06/16 06/10/21 History Dicyclomine [Bentyl] 10 mg PO BID 11/12/16 06/10/21 History Tiotropium [place] [Spiriva] 1 cap INHALATION RT-DAILY 11/12/16 06/10/21 History Albuterol Nebulized [Ventolin 2.5 mg INHALATION RT-QID 03/10/18 06/10/21 History Nebulized] Celecoxib [CeleBREX] 200 mg PO DAILY 01/22/19 06/10/21 History Losartan Potassium 100 mg PO BID 01/22/19 06/10/21 History Albuterol Sulfate [Proair Hfa] 2 puff INHALATION RT-QID PRN 02/02/21 06/10/21 History Budesonide/Formoterol Fumarate 2 puff INHALATION RT-BID 02/02/21 06/10/21 History [Symbicort 160-4.5 Mcg Inhaler] Fluticasone Nasal [place] [Flonase 2 spr EA NOSTRIL DAILY 02/02/21 06/10/21 History Nasal [place]] Ipratropium Nebulized [Atrovent 0.5 mg INHALATION RT-QID 02/02/21 06/10/21 History Nebulized 0.2 MG/ML] Letrozole [Femara] 2.5 mg PO DAILY 02/02/21 06/10/21 History Furosemide [Lasix] 40 mg PO DAILY 03/15/21 06/10/21 History Diltiazem Cd [Cardizem CD] 120 mg PO DAILY #90 cap 03/16/21 06/10/21 Rx polyethylene glycoL 3350 [Miralax] 17 gm PO DAILY #30 packet 03/16/21 06/10/21 Rx predniSONE 10 mg PO DAILY 04/22/21 06/10/21 History Gabapentin [Neurontin] 100 mg PO TID cap 04/25/21 06/10/21 Rx ALPRAZolam [Xanax] 0.5 mg PO TID@0500,1300,2100 06/10/21 06/10/21 History Acetaminophen-Codeine 300-30mg 1 tab PO BID PRN 06/10/21 06/10/21 History [Tylenol w/codeine #3] Potassium Chloride ER [K-Dur 20] 20 meq PO DAILY 06/10/21 06/10/21 History Allergies Allergy/AdvReac Type Severity Reaction Status Date / Time adhesive tape AdvReac tears Verified 06/10/21 14:20 skin-paper tape OK aspirin AdvReac Nausea-with Verified 06/10/21 14:20 325 mg dose codeine AdvReac "makes Verified 06/10/21 14:20 her weird" Iodinated Contrast Media AdvReac Nausea & Verified 06/10/21 14:20 [Iodinated Contrast Media - Vomiting IV Dye] Physical Exam Vitals: Vital Signs Temp Pulse Pulse Resp BP BP Pulse Ox 06/11/21 08:34 95 20 06/11/21 08:20 93 20 06/11/21 07:53 94 L 06/11/21 04:00 97.7 F 78 18 124/62 93 L 06/10/21 23:35 97.6 F 80 18 115/56 97 06/10/21 20:00 97.7 F 94 18 137/65 94 L 06/10/21 19:49 88 06/10/21 19:37 88 06/10/21 17:21 97.5 F L 87 20 125/58 92 L 06/10/21 17:00 98.2 F 89 15 133/59 96 06/10/21 15:08 98 F 85 24 119/52 98 02/26/22 15:00 83 24 143/62 98 06/10/21 14:00 92 26 H 137/62 96 06/10/21 13:41 87 06/10/21 13:30 84 20 141/55 94 L 06/10/21 13:27 141/55 06/10/21 13:08 97.9 F 85 26 H 95 Intake and Output 06/10/21 06/11/21 06/11/21 22:59 06:59 14:59 Intake Total 668 250 240 Output Total 1 Balance 667 250 240 Intake: IV 10 Invasive Line 1 10 Oral 658 250 240 Output: Urine 1 Other: Voiding Method Toilet Toilet # Voids 2 # Bowel Movements 1 Weight 54.431 kg GENERAL EXAM: Frail, cachectic. Alert, fairly comfortable in no apparent distress. The patient is currently on a BiPAP at a pressure of 10/5 with an FiO2 of 45%. She is quite symptoms the BiPAP mask. She is breathing comfortably. Earlier, she was taken off the BiPAP and she was placed on oxygen at 5 L and she was able to tolerate that. Nevertheless, the later stage, she wanted to go back on the BiPAP. HEAD: Normocephalic. EYES: Normal reaction of pupils, equal size. NOSE: Clear with pink turbinates. THROAT: No erythema or exudates. NECK: No masses, no JVD. CHEST: No chest wall deformity. LUNGS: Equal air entry with bilateral end expiratory wheeze. Diminished.. CVS: S1 and S2 normal with no audible murmur, regular rhythm. ABDOMEN: No hepatosplenomegaly, normal bowel sounds, no guarding or rigidity. The patient is a colostomy bag which is functional. No direct tenderness. No rebound tenderness. No guarding. SPINE: Kyphoscoliosis SKIN: No rashes CENTRAL NERVOUS SYSTEM: No focal deficits, tone is normal in all 4 extremities. EXTREMITIES: There is no peripheral edema. No clubbing, no cyanosis. Peripheral pulses are intact. Results - Laboratory Findings CBC and BMP: 06/10/21 13:21 06/10/21 13:21 PT/INR, D-dimer PT 9.8 sec (9.0-12.0) 06/10/21 13:21 INR 0.9 (<1.2) 06/10/21 13:21 Abnormal lab findings: Abnormal Labs 06/10/21 06/10/21 06/10/21 13:21 13:21 13:21 RBC 3.76 L Plt Count 138 L D Lymphocytes # 0.4 L VBG pCO2 79 H* VBG HCO3 42 H Carbon Dioxide 41 H* BUN 29 H Glucose 213 H POC Glucose (mg/dL) Total Protein 5.5 L Albumin 3.0 L 06/10/21 06/11/21 19:58 06:34 RBC Plt Count Lymphocytes # VBG pCO2 VBG HCO3 Carbon Dioxide BUN Glucose POC Glucose (mg/dL) 231 H 170 H Total Protein Albumin Assessment and Plan Plan: 1 Acute exacerbation of chronic obstructive pulmonary disease, no evidence of pneumonia. The chest x-ray findings and essentially chronic and the patient has chronic emphysematous changes in the upper lobe with some chronic scarring in the right apex. There is some questionable new infiltration of the left lung. Based on that the patient was started on IV cefepime.: COVID 19 testing was negative. The patient has been fully vaccinated. 2 Acute hypoxic respiratory failure secondary to above. The patient is currently on a BiPAP at a pressure of 10/5 cm of water 3 previous history of colectomy with colostomy secondary to rectovaginal fistula repair with previous frequent urinary tract infections and diverticular disease. 4 Coronary artery disease, currently inactive and stable. Most recent cardiac catheterization revealed nonocclusive disease. 5 Hypertension. 6 Hyperlipidemia. 7 History of chronic tobacco dependence. 8 Breast cancer with his left mastectomy. 9 Osteoporosis. 10 very poor baseline performance and functional status secondary to above- mentioned comorbidities Plan DuoNeb nebulized treatments around the clock along with IV Solu Medrol 60 mg every 6 hours supplement oxygen to maintain a saturation above 90% Obtain a blood gases while the patient being off BiPAP for 1 hour , on 5 liters airfit Luis is doing off the BiPAP okay but sooner where she lives off the BiPAP machine. 2 off the BiPAP. We will follow. On 5 L. IV cefepime as an empiric antibiotic coverage May give the patient a break off the BiPAP at a later stage procal level Lovenox 40 mg subcu 40 prophylaxis Smoking cessation counseling Resume all medications We'll continue to follow
[2021-06-11 11:31] LABS: Glucose,Whole Blood 140 mg/dL (75-99)
[2021-06-11 12:40] LABS: ABG Base Excess 15.7 mmol/L; ABG Oxygen Saturation 97.1 % (94-97); ABG PCO2 61 mmHg (35-45); ABG PH 7.43 (7.35-7.45); ABG PO2 80 mmHg (83-108); ABG TCO2 42 mmol/L (19-24); Allen Test Performed? Yes
[2021-06-11 12:41] LABS: ABG HCO3 40 mmol/L (21-25)
--- NOTE | 2021-06-11 13:38 | P.HPIM ---
History of Present Illness H&P Date: 06/11/21 HISTORY Of PRESENT ILLNESS This is a 80-year-old female patient of Dr. Alejandro with a previous medical history significant for coronary artery disease status post left heart catheterization with the left heart catheterization that was done in September 2014 that showed ostial lesion of the diagonal branch and mild disease of the RCA, normal ejection fraction, hypertension and hypertensive cardiovascular disease with left ventricular hypertrophy, chronic tobacco use and dependence with end- stage prednisone dependent COPD chronic obstructive pulmonary disease, chronic hypoxic respiratory failure on home O2, GERD, rectovaginal fistula repair, colon resection and colostomy placement done at [facility]. Chronic use of 3 L of nasal cannula oxygen on continue basis at home. She developed to have much worsening symptom of dyspnea and shortness of breath chronically worse over the past 2 weeks She was tested for COVID-19 along with influenza both were negative. previous vaccination covid In the emergency room, Patient chest x-ray showed COPD with pulmonary fibrosis increased groundglass like opacities left mid and lower pneumothorax or radiogra ph reflective of developing flexion Radiology report EKG, shows sinus rhythm, possible LAE, moderate T-wave abnormality, consider anterolateral ischemia I tried obtaining a previous echocardiogram, none of which were available in our chart last dobutamine stress test was in December 2019 without stress-induced ischemia, ER admission labs include pCO2, based on blood gas was 79, pH of 7.34, bicarb of 42 wbc count 8.3, hemoglobin 11.5, platelet count low at 138 glucose is 213, liver function test is normal, creatinine of 0.57 troponin is 0.013 coronary virus PCR negative. Patient admitted for COPD exacerbation, with impending severe respiratory failure, hypercapnia consult with pulmonary cu rrently on BiPAP with O2 REVIEW OF SYSTEMS Constitutional: No fever, no chills, no night sweats. No weight change. No weakness, fatigue or lethargy. No daytime sleepiness. EENT: No headache. No blurred vision or double vision, no loss of vision. No loss of Hearing, no ringing in the ears, no dizziness. No nasal drainage or congestion. No epistaxis. No sore throat. Lungs: Reports shortness of breath, Reports cough, Reports sputum production. Reports wheezing. Cardiovascular: No chest pain, no lower extremity edema. Reports palpitations. No paroxysmal nocturnal dyspnea. No orthopnea. No lightheadedness or dizziness. No syncopal episodes. Abdominal: No abdominal pain. No nausea, vomiting. No diarrhea. No constipation. No bloody or tarry stools. No loss of appetite. Genitourinary: No dysuria, increased frequency, urgency. No urinary retention. Musculoskeletal: No myalgias. No muscle weakness, no gait dysfunction, no frequent falls. No back pain. No neck pain. Integumentary: No wounds, no lesions. No rash or pruritus. No unusual bru ising. No change in hair or nails. Neurologic: No aphasia. No facial droop. No change in mentation. No head injury. No headache. No paralysis. No paresthesia. Psychiatric: No depression. No anxiety. No mood swings. Endocrine: No abnormal blood sugars. No weight change. No excessive sweating or thirst. No cold intolerance. ASSESSMENT AND PLAN 1. acute on chronic hypoxemic hypercarbic respiratory failure: Secondary to COPD exacerbation, and along with pulmonary fibrosis. Continue DuoNeb treatments every 6 hours and as needed, Pulmicort 1 mg twice daily, on Solu- Medrol 60 every 6 and pulmonary be consulted. CT PE protocol patient is on Femara need to eval for PE patient is high risk. However with contrast ALLERGY, unsure reaction to the iodine and could potentionially deteriorate pulmonary status that is already compromised, we will proceed with a VQ scan instead, and check for d-dimer patient is not on any previous anticoagulation prior to admission 2. End-stage COPD exacerbation with tracheobronchitis early pneumonitis. start IV steroids along with updraft treatment [id number]. cefepime sputum cultures , 3. History of coronary artery disease. Stable at this time. Abnormal EKG, check echo troponins normal 4. Hyperlipidemia. Low-cholesterol diet. 5. Hypertension and hypertensive cardiovascular disease. Continue losartan 100 mg twice daily, continue hydrochlorothiazide 12.5 mg daily. 7. GERD. Continue current Protonix 40 mg orally once every day. 8. Osteoarthritis. Continue meloxicam 15 mg orally once every day. 9. History of tobacco use and dependence. Lovenox 30 mg subcu daily 10. Osteoporosis. Stable. 11. History of rectal vaginal fistula, repaired with colon resection and colostomy placement done at [facility], stable. 12. DVT prophylaxis. Lovenox 40 mg daily, pending d-dimer and VQ scan 13. GI prophylaxis. On Protonix 40 mg orally once every day. 14. COVID-19 testing negative. Patient has been hospitalized during a pandemic. CODE STATUS DO NOT RESUSCITATE, patient feels overwhelmed, does not want to continue on the current suffering, patient does not feel ready for hospice however Review of Systems Constitutional: Reports as per HPI, Reports anorexia, Reports chills, Reports fatigue, Reports poor appetite, Reports weakness Ears, nose, mouth and throat: Reports as per HPI, Reports sore throat, Denies dental pain, Denies dysphagia Cardiovascular: Reports as per HPI, Reports decreased exercise tolerance, Reports dyspnea on exertion, Reports orthopnea, Reports shortness of breath, Denies edema, Denies leg edema, Denies paroxysmal nocturnal dyspnea, Denies rapid heart beat Respiratory: Reports as per HPI, Reports cough, Reports dyspnea, Reports respiratory infections, Reports wheezing, Denies hemoptysis Gastrointestinal: Reports as per HPI, Denies abdominal pain, Denies bloating, Denies change in bowel habits, Denies coffee ground emesis, Denies melena Genitourinary: Reports as per HPI, Denies abnormal vaginal bleeding, Denies decreased libido, Denies difficulty conceiving, Denies difficulty voiding, Denies dysmenorrhea, Denies dyspareunia, Denies dysuria, Denies flank pain, Denies genital sores, Denies hematuria, Denies hot flashes, Denies incomplete emptying, Denies kidney stones, Denies menorrhagia, Denies mixed incontinence, Denies nocturia, Denies pelvic pain, Denies post void dribbling, Denies , Denies prolapse symptoms, Denies stress incontinence, Denies urge inc ontinence, Denies urgency, Denies urinary frequency, Denies vaginal discharge, Denies vaginal dryness, Denies vaginal itching, Denies vaginal odor Menstruation: Reports as per HPI Musculoskeletal: Reports as per HPI, Reports gait dysfunction, Reports limitation of motion, Reports muscle weakness Integumentary: Reports as per HPI, Denies acne, Denies boils, Denies brittle nails, Denies change in hair/nails, Denies color changes, Denies darkening of skin, Denies depigmentation, Denies dryness, Denies foot/leg ulcers, Denies growths, Denies hirsutism, Denies lesions, Denies onychomycosis, Denies pruritus, Denies rash, Denies sores, Denies striae, Denies unusual bruising, Denies wounds Neurological: Reports as per HPI, Denies aphasia, Denies ataxia, Denies balance difficulties, Denies burning pain, Denies change in mentation, Denies change in smell/taste, Denies change in speech, Denies confusion, Denies convulsions, Denies double vision, Denies gait dysfunction, Denies head injury, Denies headaches, Denies hearing difficulties, Denies lack of coordination, Denies loss of vision, Denies memory loss, Denies migraines, Denies motor disturbance, Denies numbness, Denies paralysis, Denies paresthesias, Denies seizures, Denies sensory deficit, Denies spasticity, Denies syncope, Denies tic, Denies tingling, Denies transient paralysis, Denies tremors, Denies vertigo, Denies weakness, Denies visual changes Past Medical History Past Medical History: Asthma, Cancer, COPD, GERD/Reflux, Hypertension, Osteoarthritis (OA), Pneumonia, Respiratory Disorder Additional Past Medical History / Comment(s): L breast cancer with left m astectomy, diverticulosis/diverticular complications and rectovaginal fistula status post fistula repair, colon resection and colostomy placement at [facility], irritable bowel syndrome, peptic ulcer disease, generalized arthritis-multiple joints, leg cramps, frequent UTIs, migraines in the past, bronchitis, allergic rhinitis. 3.5L oxygen via [place] History of Any Multi-Drug Resistant Organisms: None Reported Past Surgical History: Adenoidectomy, Appendectomy, Bladder Surgery, Bowel Resection, Cholecystectomy, Heart Catheterization, Hysterectomy, Orthopedic Surgery, Tonsillectomy Additional Past Surgical History / Comment(s): 09/21/14 cardiac cath with disease-treated medically, cataracts removed bilaterally with lens implants, rt rotator cuff, juan m carpal tunnel, bladder suspension, rectocele repair, hemorrhoi dectomy, colonoscopies, camera endoscopy, EGD, left mastectomy , vaginal rectal fistula repair, bowel resection and colostomy placement Past Anesthesia/Blood Transfusion Reactions: No Reported Reaction Additional Past Anesthesia/Blood Transfusion Reaction / Comment(s): Pt is claustrophobic. Past Psychological History: Anxiety Additional Psychological History / Comment(s): Pt lives with daughter Ana. She is independent. Uses walker and shower chair PRN. She has a nebulizer. Her daughter does the grocery shopping. She has a little anxiety which she occasionally uses xanax with good results. She is claustrophobic. Smoking Status: Former smoker Past Alcohol Use History: None Reported Additional Past Alcohol Use History / Comment(s): Patient started smoking in 1960 1 pack per day and quit 2 weeks ago. 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 She is . She has grown children in the area. Past Drug Use History: None Reported - Past Family History Father Family Medical History: COPD Additional Family Medical History / Comment(s): Father is . Mother Family Medical History: CVA/TIA, Hypertension Additional Family Medical History / Comment(s): at age 91 Brother(s) Family Medical History: Cancer, Myocardial Infarction ([place]) Daughter(s) Family Medical History: No Reported History Son(s) Family Medical History: No Reported History Sister(s) Family Medical History: Cancer Additional Family Medical History / Comment(s): Sister had metastatic breast can cer and is . Medications and Allergies Home Medications Medication Instructions Recorded Confirmed Type ALPRAZolam [Xanax] 1 mg PO TID PRN 06/16/15 06/10/21 History Omeprazole [PriLOSEC] 20 mg PO DAILY 03/06/16 06/10/21 History Dicyclomine [Bentyl] 10 mg PO BID 11/12/16 06/10/21 History Tiotropium [place] [Spiriva] 1 cap INHALATION RT-DAILY 11/12/16 06/10/21 History Albuterol Nebulized [Ventolin 2.5 mg INHALATION RT-QID 03/10/18 06/10/21 History Nebulized] Celecoxib [CeleBREX] 200 mg PO DAILY 01/22/19 06/10/21 History Losartan Potassium 100 mg PO BID 01/22/19 06/10/21 History Albuterol Sulfate [Proair Hfa] 2 puff INHALATION RT-QID PRN 02/02/21 06/10/21 History Budesonide/Formoterol Fumarate 2 puff INHALATION RT-BID 02/02/21 06/10/21 History [Symbicort 160-4.5 Mcg Inhaler] Fluticasone Nasal [place] [Flonase 2 spr EA NOSTRIL DAILY 02/02/21 06/10/21 History Nasal [place]] Ipratropium Nebulized [Atrovent 0.5 mg INHALATION RT-QID 02/02/21 06/10/21 History Nebulized 0.2 MG/ML] Letrozole [Femara] 2.5 mg PO DAILY 02/02/21 06/10/21 History Furosemide [Lasix] 40 mg PO DAILY 03/15/21 06/10/21 History Diltiazem Cd [Cardizem CD] 120 mg PO DAILY #90 cap 03/16/21 06/10/21 Rx polyethylene glycoL 3350 [Miralax] 17 gm PO DAILY #30 packet 03/16/21 06/10/21 Rx predniSONE 10 mg PO DAILY 04/22/21 06/10/21 History Gabapentin [Neurontin] 100 mg PO TID cap 04/25/21 06/10/21 Rx ALPRAZolam [Xanax] 0.5 mg PO TID@0500,1300,2100 06/10/21 06/10/21 History Acetaminophen-Codeine 300-30mg 1 tab PO BID PRN 06/10/21 06/10/21 History [Tylenol w/codeine #3] Potassium Chloride ER [K-Dur 20] 20 meq PO DAILY 06/10/21 06/10/21 History Allergies Allergy/AdvReac Type Severity Reaction Status Date / Time adhesive tape AdvReac tears Verified 06/10/21 14:20 skin-paper tape OK aspirin AdvReac Nausea-with Verified 06/10/21 14:20 325 mg dose codeine AdvReac "makes Verified 06/10/21 14:20 her weird" Iodinated Contrast Media AdvReac Nausea & Verified 06/10/21 14:20 [Iodinated Contrast Media - Vomiting IV Dye] Physical Exam Vitals: Vital Signs Temp Pulse Pulse Resp BP BP Pulse Ox 06/11/21 08:34 95 20 06/11/21 08:20 93 20 06/11/21 07:53 94 L 06/11/21 04:00 97.7 F 78 18 124/62 93 L 06/10/21 23:35 97.6 F 80 18 115/56 97 06/10/21 20:00 97.7 F 94 18 137/65 94 L 06/10/21 19:49 88 06/10/21 19:37 88 06/10/21 17:21 97.5 F L 87 20 125/58 92 L 06/10/21 17:00 98.2 F 89 15 133/59 96 06/10/21 15:08 98 F 85 24 119/52 98 06/10/21 15:00 83 24 143/62 98 06/10/21 14:00 92 26 H 137/62 96 06/10/21 13:41 87 06/10/21 13:30 84 20 141/55 94 L 06/10/21 13:27 141/55 06/10/21 13:08 97.9 F 85 26 H 95 Intake and Output 06/10/21 06/11/21 06/11/21 22:59 06:59 14:59 Intake Total 668 250 240 Output Total 1 Balance 667 250 240 Intake: IV 10 Invasive Line 1 10 Oral 658 250 240 Output: Urine 1 Other: Voiding Method Toilet Toilet # Voids 2 # Bowel Movements 1 Weight 54.431 kg - Constitutional General appearance: cooperative, no acute distress - EENT Eyes: EOMI, PERRLA, dentition normal, normal appearance ENT: NA/AT, normal oropharynx - Neck Neck: normal ROM - Respiratory Respiratory: bilateral: diminished, wheezing, prolonged expiration - Cardiovascular Rhythm: regular Heart sounds: normal: S1, S2 Abnormal Heart Sounds: no systolic murmur, no diastolic murmur, no rub, no S3 Gallop, no S4 Gallop, no click, no other - Gastrointestinal General gastrointestinal: normal bowel sounds, soft - Integumentary Integumentary: normal - Musculoskeletal Musculoskeletal: generalized weakness, strength equal bilaterally - Psychiatric Psychiatric: A&O x's 3, appropriate affect, intact judgment & insight Results CBC & Chem 7: 06/10/21 13:21 06/10/21 13:21 Labs: Abnormal Lab Results - Last 24 Hours (Table) 06/10/21 06/10/21 06/10/21 Range/Units 13:21 13:21 13:21 RBC 3.76 L (3.80-5.40) m/uL Plt Count 138 L D (150-450) k/uL Lymphocytes # 0.4 L (1.0-4.8) k/uL VBG pCO2 79 H* (37-51) mmHg VBG HCO3 42 H (24-28) mmol/L Carbon Dioxide 41 H* (22-30) mmol/L BUN 29 H (7-17) mg/dL Glucose 213 H (74-99) mg/dL POC Glucose (mg/dL) (75-99) mg/dL Total Protein 5.5 L (6.3-8.2) g/dL Albumin 3.0 L (3.5-5.0) g/dL 06/10/21 06/11/21 Range/Units 19:58 06:34 RBC (3.80-5.40) m/uL Plt Count (150-450) k/uL Lymphocytes # (1.0-4.8) k/uL VBG pCO2 (37-51) mmHg VBG HCO3 (24-28) mmol/L Carbon Dioxide (22-30) mmol/L BUN (7-17) mg/dL Glucose (74-99) mg/dL POC Glucose (mg/dL) 231 H 170 H (75-99) mg/dL Total Protein (6.3-8.2) g/dL Albumin (3.5-5.0) g/dL Laboratory Results WBC 8.1 k/uL (3.8-10.6) 06/10/21 13:21 RBC 3.76 m/uL (3.80-5.40) L 06/10/21 13:21 Hgb 11.5 gm/dL (11.4-16.0) 06/10/21 13:21 Hct 34.8 % (34.0-46.0) 06/10/21 13:21 MCV 92.5 fL (80.0-100.0) 06/10/21 13:21 MCH 30.5 pg (25.0-35.0) 06/10/21 13:21 MCHC 33.0 g/dL (31.0-37.0) 06/10/21 13:21 RDW 15.1 % (11.5-15.5) 06/10/21 13:21 Plt Count 138 k/uL (150-450) L D 06/10/21 13:21 MPV 7.4 06/10/21 13:21 Neutrophils % 87 % 06/10/21 13:21 Lymphocytes % 5 % 06/10/21 13:21 Monocytes % 6 % 06/10/21 13:21 Eosinophils % 0 % 06/10/21 13:21 Basophils % 0 % 06/10/21 13:21 Neutrophils # 7.0 k/uL (1.3-7.7) 06/10/21 13:21 Lymphocytes # 0.4 k/uL (1.0-4.8) L 06/10/21 13:21 Monocytes # 0.5 k/uL (0-1.0) 06/10/21 13:21 Eosinophils # 0.0 k/uL (0-0.7) 06/10/21 13:21 Basophils # 0.0 k/uL (0-0.2) 06/10/21 13:21 Hypochromasia Slight 06/10/21 13:21 PT 9.8 sec (9.0-12.0) 06/10/21 13:21 INR 0.9 (<1.2) 06/10/21 13:21 APTT 23.8 sec (22.0-30.0) 06/10/21 13:21 Sample Site r rad 06/11/21 12:37 ABG pH 7.43 (7.35-7.45) 06/11/21 12:37 ABG pCO2 61 mmHg (35-45) H 06/11/21 12:37 ABG pO2 80 mmHg (83-108) L 06/11/21 12:37 ABG HCO3 40 mmol/L (21-25) H* 06/11/21 12:37 ABG Total CO2 42 mmol/L (19-24) H 06/11/21 12:37 ABG O2 Saturation 97.1 % (94-97) H 06/11/21 12:37 ABG Base Excess 15.7 mmol/L 06/11/21 12:37 [place] Test Yes 06/11/21 12:37 VBG pH 7.34 (7.31-7.41) 06/10/21 13:21 VBG pCO2 79 mmHg (37-51) H* 06/10/21 13:21 VBG HCO3 42 mmol/L (24-28) H 06/10/21 13:21 FiO2 44 % 06/11/21 12:37 Sodium 139 mmol/L (137-145) 06/10/21 13:21 Potassium 4.0 mmol/L (3.5-5.1) 06/10/21 13:21 Chloride 99 mmol/L (98-107) 06/10/21 13:21 Carbon Dioxide 41 mmol/L (22-30) H* 06/10/21 13:21 Anion Gap -1 mmol/L 06/10/21 13:21 BUN 29 mg/dL (7-17) H 06/10/21 13:21 Creatinine 0.57 mg/dL (0.52-1.04) 06/10/21 13:21 Est GFR (CKD-EPI)AfAm >90 (>60 ml/min/1.73 sqM) 06/10/21 13:21 Est GFR (CKD-EPI)NonAf 89 (>60 ml/min/1.73 sqM) 06/10/21 13:21 Glucose 213 mg/dL (74-99) H 06/10/21 13:21 POC Glucose (mg/dL) 140 mg/dL (75-99) H 06/11/21 11:29 POC Glu Property Technician ID Maida Lizama 06/11/21 11:29 Plasma Lactic Acid [place] 1.5 mmol/L (0.7-2.0) 06/10/21 13:21 Calcium 8.4 mg/dL (8.4-10.2) 06/10/21 13:21 Magnesium 1.9 mg/dL (1.6-2.3) 06/10/21 13:21 Total Bilirubin 0.9 mg/dL (0.2-1.3) 06/10/21 13:21 AST 31 U/L (14-36) 06/10/21 13:21 ALT 28 U/L (4-34) 06/10/21 13:21 Alkaline Phosphatase 79 U/L (38-126) 06/10/21 13:21 Troponin I 0.013 ng/mL (0.000-0.034) 06/10/21 13:21 Total Protein 5.5 g/dL (6.3-8.2) L 06/10/21 13:21 Albumin 3.0 g/dL (3.5-5.0) L 06/10/21 13:21 Coronavirus (PCR) Not Detected (Not Detectd) 06/10/21 13:21 Thrombosis Risk Factor Assmnt - DVT/VTE Prophylaxis DVT/VTE Prophylaxis: Pharmacologic Prophylaxis ordered - Choose All That Apply Any of the Below Risk Factors Present?: Yes Each Factor Represents 1 point: Abnormal pulmonary function (COPD) Other Risk Factors: Yes Each Risk Factor Represents 3 Points: Age 75 years or older Thrombosis Risk Factor Assessment Total Risk Factor Score: 4 Thrombosis Risk Factor Assessment Level: Moderate Risk
[2021-06-11 16:18] LABS: Glucose,Whole Blood 257 mg/dL (75-99)
[2021-06-11] MEDS: FLUTICASONE 50MCG/SPRAY NASAL 16GM EA NOSTRIL SCH (17:00)
[2021-06-11] MEDS: ENOXAPARIN 40 MG/0.4 ML SYRINGE SQ SCH (17:04)
[2021-06-11 20:29] LABS: Glucose,Whole Blood 100 mg/dL (75-99)
[2021-06-12] MEDS: ALPRAZolam 1 MG TAB PO SCH ×3 (05:29→21:00)
[2021-06-12] MEDS: methylPREDNISolone SOD SUCCI 125 MG/2 ML VIAL IV SCH ×2 (05:29→12:18)
[2021-06-12 05:51] LABS: Glucose,Whole Blood 223 mg/dL (75-99)
[2021-06-12] MEDS: INSULIN ASPART (NovoLOG) 100 UNIT/ML VIAL SQ SCH ×4 (06:48→21:00)
[2021-06-12] MEDS: IPRATROPIUM-ALBUTEROL 3 ML NEB INHALATION SCH ×4 (08:33→19:37)
[2021-06-12] MEDS: SYMBICORT 160-4.5 MCG INHALER INHALATION SCH ×2 (08:34→19:37)
[2021-06-12] MEDS: LOSARTAN 50 MG TAB PO SCH ×2 (09:19→21:00)
[2021-06-12] MEDS: MELOXICAM 7.5 MG TAB PO SCH (09:19)
[2021-06-12] MEDS: polyethylene glycoL 3350 17 GM POWD.PACK PO SCH (09:20)
[2021-06-12] MEDS: FUROSEMIDE 20 MG TAB PO SCH (09:20)
[2021-06-12] MEDS: PANTOPRAZOLE 40 MG TABLET PO SCH (09:20)
[2021-06-12] MEDS: DILTIAZEM CD 120 MG CAP.ER.24H PO SCH (09:20)
[2021-06-12] MEDS: GABAPENTIN 100 MG CAP PO SCH ×3 (09:20→21:00)
[2021-06-12] MEDS: ENOXAPARIN 40 MG/0.4 ML SYRINGE SQ SCH (09:20)
[2021-06-12] MEDS: CEFEPIME 2 GM in SODIUM CHLORIDE 0.9% 100 ML IVPB SCH ×3 (09:20→23:34)
[2021-06-12] MEDS: DICYCLOMINE 10 MG CAP PO SCH ×2 (09:20→21:00)
[2021-06-12] MEDS: POTASSIUM CHLORIDE ER 20 MEQ TAB.ER PO SCH (09:20)
[2021-06-12] MEDS: LETROZOLE 2.5 MG TAB PO SCH (09:25)
[2021-06-12] MEDS: FLUTICASONE 50MCG/SPRAY NASAL 16GM EA NOSTRIL SCH (09:25)
--- NOTE | 2021-06-12 10:01 | NM ---
EXAMINATION TYPE: NM pul vent and perfuse DATE OF EXAM: 06/12/2021 COMPARISON: 02/03/2021, chest x-ray 06/10/2021 HISTORY: Hypoxemia contrast allergy TECHNIQUE: Utilizing inhalation of 69 mCi Tc 99m DTPA aerosol and intravenous injection of 5.3 mCi o f Tc 99m MAA, ventilation and perfusion images are acquired post injection in multiple projections. FINDINGS: No mismatch defects are evident. There are small peripheral fixed defects. No moderate or large misma tched defects identified. There is central deposition of radiotracer on the ventilation portion study . Examination appears stable from comparison. IMPRESSION: Intermediate probability for pulmonary embolism.
[2021-06-12 11:45] LABS: Glucose,Whole Blood 163 mg/dL (75-99)
--- NOTE | 2021-06-12 13:37 | P.PN ---
<Taylor Leslie M - Last Filed: 06/12/21 13:28> Subjective Progress Note Date: 06/12/21 Principal diagnosis: Shortness of breath 80-year-old female patient is well-known to us pH she presented emergency department yesterday with generalized weakness, fatigue, shortness of breath. The patient is known to have advanced oxygen-dependent COPD and she suctioned dependent that she typically wears around 3.5 L of oxygen by nasal cannula. Her oxygen requirements have been gradually going up at home and she was utilizing 5 L. She was becoming more lethargic and weak and more shortness of breath. Based on that, she presented herself to the emergency department. She was afebrile. She was hemodynamically stable. Her EKG showed no acute abnormalities. She was in significant respiratory distress and the time of arrival and breath sounds are quite diminished bilaterally and the patient was also bronchospastic and wheezy. The blood gases was done and the patient was found to have a pH of 7.34 with a pCO2 of 79 and this was done and intravenous sample. Her serum bicarb was at 41 with a sodium level of 139 and a potassium level of 4.0. Blood sugar was 213. Troponin was negative at 0.013.: COVID 19 testing was negative. LFTs were essentially within normal limits. The white cell count at 8.1 with hemoglobin of 11.5 and a platelet count of 138. Chest x- ray was reviewed and it showed no acute abnormalities. It showed some increased interstitial marking the lung bases and some limited infiltration of the left mid and lower lung [place] and possibly a small left-sided pleural effusion. No significant cardiomegaly. No consolidation or airspace disease. Because of increased shortness of breath, the patient was placed on a BiPAP. She was started on bronchodilators and steroids. She is currently on a BiPAP at a pressure of 10/5 with a FiO2 of 40%. Her generator tidal volume is around 390 mL. Leak is in order of 29 L per minute. Her minute ventilation is around 1.1 with a respiratory rate of 18.. The patient is calm and comfortable. She is arousable. She took her oral medications. She is moving all 4 extremities. She remains afebrile. She was started on IV cefepime as an empiric antibiotic coverage. She remains on IV Solu-Medrol. COVID-19 testing is negative the patient has been vaccinated for COVID-19 On 06/12/2021 patient seen in follow-up on selective care unit. She is currently sitting up in the recliner, she looks very weak, and she states she feels tired, but overall slightly improved, does not appear to be in any acute distress, and she is currently on BiPAP support and she is on 4 L of oxygen. Earlier patient was on BiPAP support at 10/5 and FiO2 of 45%, and her pulse ox was around 98%. She's had no fever or chills, vital signs have been stable, she remains in sinus mechanism, lung sounds are diminished, patient does have a weak cough, she remains on IV Solu-Medrol 60 mg every 6 hours, she is on breathing treatments, and empiric antibiotics. Blood cultures have shown no growth. Patient had blood gas drawn yesterday which showed pO2 of 80, pCO2 of 61, and pH of 7.43, this was done on FiO2 of 44%. This is consistent with chronic hypercapnic and chronic hypoxic respiratory failure related to history of advanced COPD. Procalcitonin level was negative, patient tested negative for COVID-19. Objective - Vital Signs Vital signs: Vital Signs Temp 98.0 F 06/12/21 04:00 Pulse 80 06/12/21 11:32 Resp 24 06/12/21 04:00 BP 141/65 06/12/21 04:00 Pulse Ox 98 06/12/21 04:00 Intake & Output 06/11/21 06/12/21 06/12/21 18:59 06:59 18:59 Intake Total 720 480 Output Total 2 100 Balance 718 -100 480 Intake: Oral 720 480 Output: Urine 1 Stool 1 100 Other: Voiding Method Bedside Commode Bedside Commode # Voids 2 1 1 - Exam GENERAL EXAM: Alert, very pleasant, 80-year-old white female, very debilitated looking, sitting up in the recliner, on 4 L of oxygen comfortable in no apparent distress. HEAD: Normocephalic/atraumatic. EYES: Normal reaction of pupils, equal size. Conjunctiva pink, sclera white. NOSE: Clear with pink turbinates. THROAT: No erythema or exudates. NECK: No masses, no JVD, no thyroid enlargement, no adenopathy. CHEST: No chest wall deformity. Symmetrical expansion. LUNGS: Equal air entry with no crackles, wheeze, rhonchi or dullness. CVS: Regular rate and rhythm, normal S1 and S2, no gallops, no murmurs, no rubs ABDOMEN: Soft, nontender. No hepatosplenomegaly, normal bowel sounds, no guarding or rigidity. EXTREMITIES: No clubbing, no edema, no cyanosis, 2+ pulses and upper and lower extremities. MUSCULOSKELETAL: Muscle strength and tone normal. SPINE: No scoliosis or deformity SKIN: No rashes CENTRAL NERVOUS SYSTEM: Alert and oriented -3. No focal deficits, tone is normal in all 4 extremities. PSYCHIATRIC: Alert and oriented -3. Appropriate affect. Intact judgment and insight. - Labs CBC & Chem 7: 06/10/21 13:21 06/10/21 13:21 Labs: Abnormal Lab Results - Last 24 Hours (Table) 06/11/21 06/11/21 06/12/21 Range/Units 16:16 20:27 05:45 POC Glucose (mg/dL) 257 H 100 H 223 H (75-99) mg/dL 06/12/21 Range/Units 11:40 POC Glucose (mg/dL) 163 H (75-99) mg/dL Microbiology - Last 24 Hours (Table) 06/10/21 13:30 Blood Culture - Preliminary Blood No Growth after 24 hours 06/10/21 13:15 Blood Culture - Preliminary Blood No Growth after 24 hours Assessment and Plan Plan: #1. Acute exacerbation of chronic obstructive pulmonary disease, no evidence of pneumonia. The chest x-ray findings and essentially chronic and the patient has chronic emphysematous changes in the upper lobe with some chronic scarring in the right apex. There is some questionable new infiltration of the left lung. Based on that the patient was started on IV cefepime.: COVID 19 testing was negative. The patient has been fully vaccinated. #2. Acute hypoxic respiratory failure secondary to above. Patient normally wears 3 L of oxygen at home on a regular basis. The patient is currently on a BiPAP at a pressure of 10/5 cm of water #3. 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 #4. Coronary artery disease, currently inactive and stable. Most recent cardiac catheterization revealed nonocclusive disease. #5. Hypertension. #6. Hyperlipidemia. #7. History of chronic tobacco dependence. #8. Breast cancer with his left mastectomy. #9. Osteoporosis. #10. Very poor baseline performance and functional status secondary to above- mentioned comorbidities Plan: Patient is improving, is in no acute distress, but she is quite debilitated, weak and fatigued Vital signs have been stable Utilizes BiPAP support at bedtime and as needed for worsening shortness of breath Blood gas has been reviewed consistent with chronic hypoxic and hypercapnic respiratory failure related to advanced COPD Patient could benefit from home BiPAP device for a diagnosis of advanced COPD, based on frequent readmissions, frequent exacerbations, advanced COPD, She qualifies based on her blood gas for BiPAP device, we will ask for overnight oxygen saturation study on home oxygen at 3 L (home dose O2) Physical therapy, however patient is quite debilitated, She may qualify for subacute rehab We'll continue to follow I performed a history & physical examination of the patient and discussed their management with my nurse practitioner, Taylor Leslie. I reviewed the nurse practitioner's note and agree with the documented findings and plan of care. Lung sounds are positive for diffuse wheezes throughout the lung [place]. The fi ndings and the impression was discussed with the patient. I attest to the documentation by the nurse practitioner. I have personally seen and examined the patient, performed the documentation and the assessment and plan as written. Number of minutes spent on the visit: [10] Time with Patient: Less than 30 <Brenna Perez - Last Filed: 06/12/21 14:23> Objective - Vital Signs Vital signs: Vital Signs Temp 98.0 F 06/12/21 04:00 Pulse 80 06/12/21 11:32 Resp 24 06/12/21 04:00 BP 141/65 06/12/21 04:00 Pulse Ox 98 06/12/21 04:00 Intake & Output 06/11/21 06/12/21 06/12/21 18:59 06:59 18:59 Intake Total 720 480 Output Total 2 100 Balance 718 -100 480 Intake: Oral 720 480 Output: Urine 1 Stool 1 100 Other: Voiding Method Bedside Commode Bedside Commode # Voids 2 1 1 - Labs CBC & Chem 7: 06/10/21 13:21 06/10/21 13:21 Labs: Abnormal Lab Results - Last 24 Hours (Table) 06/11/21 06/11/21 06/12/21 Range/Units 16:16 20:27 05:45 POC Glucose (mg/dL) 257 H 100 H 223 H (75-99) mg/dL 06/12/21 Range/Units 11:40 POC Glucose (mg/dL) 163 H (75-99) mg/dL Microbiology - Last 24 Hours (Table) 06/10/21 13:30 Blood Culture - Preliminary Blood No Growth after 24 hours 06/10/21 13:15 Blood Culture - Preliminary Blood No Growth after 24 hours Assessment and Plan Plan: This is a joint evaluated was done along with a nurse practitioner. This evaluation was done and more than 20 minutes. I tested information above and I was actively involved in decision-making assessment and plan on care of this patient. I had a lengthy discussion with the patient and her daughter. The patient apparently is benefiting from the BiPAP therapy and she is receiving in the hospital. I did a blood gases yesterday on room air oxygen and the patient had CO2 retention. I will also do a nocturnal oxygen analysis on 4 L and the patient may qualify for a BiPAP or an AV APS machine as long as she demonstrates desaturation while being on oxygen therapy at 4 L. Her pCO2 was above 52. She has advanced COPD. She has a current hospitalization. She may potentially qualify patient is clinically improving. We'll continue current management for now.
--- NOTE | 2021-06-12 15:09 | P.PN ---
Subjective Progress Note Date: 06/12/21 HISTORY Of PRESENT ILLNESS This is a 80-year-old female patient of Dr. Alejandro with a previous medical history significant for coronary artery disease status post left heart catheterization with the left heart catheterization that was done in September 2014 that showed ostial lesion of the diagonal branch and mild disease of the RCA, normal ejection fraction, hypertension and hypertensive cardiovascular disease with left ventricular hypertrophy, chronic tobacco use and dependence with end- stage prednisone dependent COPD chronic obstructive pulmonary disease, chronic hypoxic respiratory failure on home O2, GERD, rectovaginal fistula repair, colon resection and colostomy placement done at [facility]. Chronic use of 3 L of nasal cannula oxygen on continue basis at home. She developed to have much worsening symptom of dyspnea and shortness of breath chronically worse over the past 2 weeks She was tested for COVID-19 along with influenza both were negati ve. previous vaccination covid In the emergency room, Patient chest x-ray showed COPD with pulmonary fibrosis increased groundglass like opacities left mid and lower pneumothorax or radiograph reflective of developing flexion Radiology report EKG, shows sinus rhythm, possible LAE, moderate T-wave abnormality, consider anterolateral ischemia I tried obtaining a previous echocardiogram, none of which were available in our chart last dobutamine stress test was in December 2019 without stress-induced ischemia, ER admission labs include pCO2, based on blood gas was 79, pH of 7.34, bicarb of 42 wbc count 8.3, hemoglobin 11.5, platelet count low at 138 glucose is 213, liver function test is normal, creatinine of 0.57 troponin is 0.013 coronary virus PCR negative. Patient admitted for COPD exacerbation, with impending severe respiratory failure, hypercapnia consult with pulmonary currently on BiPAP with O2 06/12: Patient's daughter Karen is at bedside. There've been discussions about hospice care and they would like to pursue this. Referral has been placed with plan for discharge possibly tomorrow. nurseryperson is daughter Ana. Patient has been afebrile, heart rate in the 70s and 80s, blood pressure 141/65, pulse ox 98% on BiPAP, currently on 4 L nasal cannula. Capillary blood glucose running between 102 123. Blood culture no growth after 24 hours 2 specimens. Patient underwent VQ scan which revealed intermediate probability for pulmonary embolism. Patient is followed by pulmonary medicine. Plan is for discharge home tomorrow with hospice care. Solu-Medrol will be decreased to 40 mg every 8 hours. REVIEW OF SYSTEMS Constitutional: No fever, no chills, no night sweats. No weight change. No weakness, fatigue or lethargy. No daytime sleepiness. EENT: No headache. No blurred vision or double vision, no loss of vision. No loss of Hearing, no ringing in the ears, no dizziness. No nasal drainage or congestion. No epistaxis. No sore throat. Lungs: Reports shortness of breath which is chronic, improving, Reports cough, Reports sputum production. Reports wheezing. Cardiovascular: No chest pain, no lower extremity edema. Reports palpitations. No paroxysmal nocturnal dyspnea. No orthopnea. No lightheadedness or d izziness. No syncopal episodes. Abdominal: No abdominal pain. No nausea, vomiting. No diarrhea. No constipation. No bloody or tarry stools. No loss of appetite. Genitourinary: No dysuria, increased frequency, urgency. No urinary retention. Musculoskeletal: No myalgias. No muscle weakness, no gait dysfunction, no frequent falls. No back pain. No neck pain. Integumentary: No wounds, no lesions. No rash or pruritus. No unusual bruising. No change in hair or nails. Neurologic: No aphasia. No facial droop. No change in mentation. No head injury. No headache. No paralysis. No paresthesia. Psychiatric: No depression. No anxiety. No mood swings. Endocrine: No abnormal blood sugars. No weight change. No excessive sweating or thirst. No cold intolerance. ASSESSMENT AND PLAN 1. Acute on chronic hypoxemic hypercarbic respiratory failure: Secondary to C OPD exacerbation, and along with pulmonary fibrosis. Intermediate probability for pulmonary embolism on VQ scan. Patient is followed by [facility]. Continue Symbicort twice daily, DuoNeb treatments 4 times daily and as needed, Solu-Medrol decreased to 40 mg IV every 8 hours. 2. End-stage COPD exacerbation with tracheobronchitis early pneumonitis. start IV steroids along with updraft treatment [id number]. cefepime sputum cultures , 3. History of coronary artery disease. Stable at this time. Abnormal EKG, check echo troponins normal 4. Hyperlipidemia. Low-cholesterol diet. 5. Hypertension and hypertensive cardiovascular disease. Continue losartan 100 mg twice daily, continue hydrochlorothiazide 12.5 mg daily. 7. GERD. Continue current Protonix 40 mg orally once every day. 8. Osteoarthritis. Continue meloxicam 15 mg orally once every day. 9. History of tobacco use and dependence. Lovenox 30 mg subcu daily 10. Osteoporosis. Stable. 11. History of rectal vaginal fistula, repaired with colon resection and colostomy placement done at [facility], stable. 12. DVT prophylaxis. Lovenox 40 mg daily, pending d-dimer and VQ scan 13. GI prophylaxis. On Protonix 40 mg orally once every day. 14. COVID-19 testing negative. Patient has been hospitalized during a pandemic. CODE STATUS DO NOT RESUSCITATE DISCHARGE PLAN Home on Saturday with [facility] Impression and plan of care have been directed as dictated by the signing physician. Keren Daniels nurse practitioner acting as scribe for signing physician. Objective - Vital Signs Vital signs: Vital Signs Temp 98.0 F 06/12/21 04:00 Pulse 80 06/12/21 11:32 Resp 24 06/12/21 04:00 BP 141/65 06/12/21 04:00 Pulse Ox 98 06/12/21 04:00 Intake & Output 06/11/21 06/12/21 06/12/21 18:59 06:59 18:59 Intake Total 720 240 Output Total 2 100 Balance 718 -100 240 Intake: Oral 720 240 Output: Urine 1 Stool 1 100 Other: Voiding Method Bedside Commode Bedside Commode # Voids 2 1 - Labs CBC & Chem 7: 06/10/21 13:21 06/10/21 13:21 Labs: Abnormal Lab Results - Last 24 Hours (Table) 06/11/21 06/11/21 06/11/21 Range/Units 12:37 16:16 20:27 ABG pCO2 61 H (35-45) mmHg ABG pO2 80 L (83-108) mmHg ABG HCO3 40 H* (21-25) mmol/L ABG Total CO2 42 H (19-24) mmol/L ABG O2 Saturation 97.1 H (94-97) % POC Glucose (mg/dL) 257 H 100 H (75-99) mg/dL 06/12/21 06/12/21 Range/Units 05:45 11:40 ABG pCO2 (35-45) mmHg ABG pO2 (83-108) mmHg ABG HCO3 (21-25) mmol/L ABG Total CO2 (19-24) mmol/L ABG O2 Saturation (94-97) % POC Glucose (mg/dL) 223 H 163 H (75-99) mg/dL Microbiology - Last 24 Hours (Table) 06/10/21 13:30 Blood Culture - Preliminary Blood No Growth after 24 hours 06/10/21 13:15 Blood Culture - Preliminary Blood No Growth after 24 hours
[2021-06-12 16:35] LABS: Glucose,Whole Blood 269 mg/dL (75-99)
[2021-06-12 20:34] LABS: Glucose,Whole Blood 174 mg/dL (75-99)
[2021-06-12] MEDS: methylPREDNISolone SOD SUCCI 40 MG/ML 1 ML VIAL IV SCH (21:14)
[2021-06-13] MEDS: ALPRAZolam 1 MG TAB PO SCH ×3 (04:58→21:12)
[2021-06-13] MEDS: methylPREDNISolone SOD SUCCI 40 MG/ML 1 ML VIAL IV SCH ×2 (04:59→11:59)
[2021-06-13] MEDS: INSULIN ASPART (NovoLOG) 100 UNIT/ML VIAL SQ SCH ×4 (06:24→21:12)
[2021-06-13 06:33] LABS: Glucose,Whole Blood 274 mg/dL (75-99)
[2021-06-13] MEDS: SYMBICORT 160-4.5 MCG INHALER INHALATION SCH ×2 (07:41→19:11)
[2021-06-13] MEDS: IPRATROPIUM-ALBUTEROL 3 ML NEB INHALATION SCH ×4 (07:41→19:11)
[2021-06-13] MEDS: POTASSIUM CHLORIDE ER 20 MEQ TAB.ER PO SCH (08:14)
[2021-06-13] MEDS: FUROSEMIDE 20 MG TAB PO SCH (08:14)
[2021-06-13] MEDS: PANTOPRAZOLE 40 MG TABLET PO SCH (08:14)
[2021-06-13] MEDS: DICYCLOMINE 10 MG CAP PO SCH ×2 (08:14→21:12)
[2021-06-13] MEDS: MELOXICAM 7.5 MG TAB PO SCH (08:15)
[2021-06-13] MEDS: GABAPENTIN 100 MG CAP PO SCH ×3 (08:16→21:12)
[2021-06-13] MEDS: LOSARTAN 50 MG TAB PO SCH ×2 (08:16→21:12)
[2021-06-13] MEDS: polyethylene glycoL 3350 17 GM POWD.PACK PO SCH (08:16)
[2021-06-13] MEDS: ENOXAPARIN 40 MG/0.4 ML SYRINGE SQ SCH (08:16)
[2021-06-13] MEDS: DILTIAZEM CD 120 MG CAP.ER.24H PO SCH (08:16)
[2021-06-13] MEDS: LETROZOLE 2.5 MG TAB PO SCH (08:17)
[2021-06-13] MEDS: CEFEPIME 2 GM in SODIUM CHLORIDE 0.9% 100 ML IVPB SCH ×2 (08:18→17:29)
--- NOTE | 2021-06-13 10:00 | ECHOF ---
Referral Reason:dyspnea MEASUREMENTS -------- HEIGHT: 157.5 cm WEIGHT: 54.4 kg BP: IVSd: 1.3 cm (0.6 - 1.1) LVIDd: 3.3 cm (3.9 - 5.3) LVPWd: 1.5 cm (0.6 - 1.1) IVSs: 1.6 cm LVIDs: 3.1 cm LVPWs: 0.8 cm Ao Diam: 2.8 cm (2.0 - 3.7) AV Cusp: 1.7 cm (1.5 - 2.6) LA Diam: 4.0 cm (2.7 - 3.8) MV EXCURSION: 15.271 mm (> 18.000) MV EF SLOPE: 50 mm/s (70 - 150) EPSS: 0.3 cm MV E Kendall: 0.45 m/s MV DecT: 262 ms MV A Kendall: 0.69 m/s MV E/A Ratio: 0.65 RAP: 5.00 mmHg RVSP: 16.97 mmHg FINDINGS -------- Undetermined rhythm. This was a technically adequate study. The left ventricular size is normal. There is mild concentric left ventricular hypertrophy. The right ventricle is normal in size. The left atrial size is normal. The right atrial size is normal. There is mild aortic valve sclerosis. There is no evidence of aortic regurgitation. Mild mitral regurgitation is present. Mild tricuspid regurgitation present. Right ventricular systolic pressure is normal at < 35 mmHg. The pulmonic valve was not well visualized. Echo free space indicative of a pericardial fat pad. CONCLUSIONS -------- 1. The left ventricular size is normal. 2. There is mild concentric left ventricular hypertrophy. 3. The right ventricle is normal in size. 4. The left atrial size is normal. 5. The right atrial size is normal. 6. There is mild aortic valve sclerosis. 7. Mild mitral regurgitation is present. 8. Mild tricuspid regurgitation present. 9. The pulmonic valve was not well visualized. 10. Echo free space indicative of a pericardial fat pad. HONING JOB SETTER: Estella Cordova RDCS
[2021-06-13 11:47] LABS: Glucose,Whole Blood 124 mg/dL (75-99)
--- NOTE | 2021-06-13 12:51 | P.PN ---
<Rosi Julio - Last Filed: 06/13/21 12:39> Subjective Progress Note Date: 06/13/21 80-year-old female patient is well-known to us pH she presented emergency department yesterday with generalized weakness, fatigue, shortness of breath. The patient is known to have advanced oxygen-dependent COPD and she suctioned dependent that she typically wears around 3.5 L of oxygen by nasal cannula. Her oxygen requirements have been gradually going up at home and she was utilizing 5 L. She was becoming more lethargic and weak and more shortness of breath. Based on that, she presented herself to the emergency department. She was afebrile. She was hemodynamically stable. Her EKG showed no acute abnormalities. She was in significant respiratory distress and the time of arrival and breath sounds are quite diminished bilaterally and the patient was also bronchospastic and wheezy. The blood gases was done and the patient was found to have a pH of 7.34 with a pCO2 of 79 and this was done and intravenous sample. Her serum bicarb was at 41 with a sodium level of 139 and a potassium level of 4.0. Blood sugar was 213. Troponin was negative at 0.013.: COVID 19 testing was negative. LFTs were essentially within normal limits. The white cell count at 8.1 with hemoglobin of 11.5 and a platelet count of 138. Chest x- ray was reviewed and it showed no acute abnormalities. It showed some increased interstitial marking the lung bases and some limited infiltration of the left mid and lower lung [place] and possibly a small left-sided pleural effusion. No significant cardiomegaly. No consolidation or airspace disease. Because of increased shortness of breath, the patient was placed on a BiPAP. She was started on bronchodilators and steroids. She is currently on a BiPAP at a pressure of 10/5 with a FiO2 of 40%. Her generator tidal volume is around 390 mL. Leak is in order of 29 L per minute. Her minute ventilation is around 1.1 with a respiratory rate of 18.. The patient is calm and comfortable. She is arousable. She took her oral medications. She is moving all 4 extremities. She remains afebrile. She was started on IV cefepime as an empiric antibiotic coverage. She remains on IV Solu-Medrol. COVID-19 testing is negative the patient has been vaccinated for COVID-19 On 06/12/2021 patient seen in follow-up on selective care unit. She is currently sitting up in the recliner, she looks very weak, and she states she feels tired, but overall slightly improved, does not appear to be in any acute distress, and she is currently on BiPAP support and she is on 4 L of oxygen. Earlier patient was on BiPAP support at 10/5 and FiO2 of 45%, and her pulse ox was around 98%. She's had no fever or chills, vital signs have been stable, she remains in sinus mechanism, lung sounds are diminished, patient does have a weak cough, she remains on IV Solu-Medrol 60 mg every 6 hours, she is on breathing treatments, and empiric antibiotics. Blood cultures have shown no growth. Patient had blood gas drawn yesterday which showed pO2 of 80, pCO2 of 61, and pH of 7.43, this was done on FiO2 of 44%. This is consistent with chronic hypercapnic and chronic hypoxic respiratory failure related to history of advanced COPD. Procalcitonin level was negative, patient tested negative for COVID-19. The patient is seen today 06/13/2021 in follow-up on the selective care unit. She is awake and alert in no acute distress. Currently sitting up in bed. She is still quite dyspneic with minimal exertion. Minimal conversation. She did utilize BiPAP 10/5 and 45% FiO2 overnight. She is currently on 4 L high flow nasal cannula. Her daughters are at the bedside. They are discussing possible home with hospice. She remains on Symbicort, DuoNeb inhalations, IV Solu- Medrol. Antibiotics in the form of cefepime. Lovenox for DVT prophylaxis. VQ scan revealed intermediate probability of pulmonary embolism. Echocardiogram revealed normal left ventricular systolic function and preserved ejection fraction. The cultures revealed no growth. Sputum culture reveals no growth thus far. Blood glucose 124. Objective - Vital Signs Vital signs: Vital Signs Temp 98.2 F 06/13/21 08:00 Pulse 85 06/13/21 12:00 Resp 18 06/13/21 12:00 BP 158/79 06/13/21 12:00 Pulse Ox 100 06/13/21 12:00 Intake & Output 06/12/21 06/13/21 06/13/21 18:59 06:59 18:59 Intake Total 720 360 Output Total 200 500 Balance 720 -200 -140 Intake: Oral 720 360 Output: Urine 300 Stool 200 200 Other: Voiding Method Bedside Commode Bedside Commode # Voids 1 1 - Exam GENERAL EXAM: Alert, very pleasant, 80-year-old female patient, chronically ill looking, on 4 L of oxygen, comfortable in no apparent distress. HEAD: Normocephalic/atraumatic. EYES: Normal reaction of pupils, equal size. Conjunctiva pink, sclera white. NOSE: Clear with pink turbinates. THROAT: No erythema or exudates. NECK: No masses, no JVD, no thyroid enlargement, no adenopathy. CHEST: No chest wall deformity. Symmetrical expansion. LUNGS: Equal air entry with bilateral end Wheeze, diminished. CVS: Regular rate and rhythm, normal S1 and S2, no gallops, no murmurs, no rubs ABDOMEN: Soft, nontender. No hepatosplenomegaly, normal bowel sounds, no guarding or rigidity. EXTREMITIES: No clubbing, no edema, no cyanosis, 2+ pulses and upper and lower extremities. MUSCULOSKELETAL: Muscle strength and tone normal. SPINE: No scoliosis or deformity SKIN: No rashes CENTRAL NERVOUS SYSTEM: No focal deficits, tone is normal in all 4 extremities. PSYCHIATRIC: Alert and oriented -3. Appropriate affect. Intact judgment and insight. - Labs CBC & Chem 7: 06/10/21 13:21 06/10/21 13:21 Labs: Abnormal Lab Results - Last 24 Hours (Table) 06/12/21 06/12/21 06/13/21 Range/Units 16:31 20:32 06:20 POC Glucose (mg/dL) 269 H 174 H 274 H (75-99) mg/dL 06/13/21 Range/Units 11:45 POC Glucose (mg/dL) 124 H (75-99) mg/dL Microbiology - Last 24 Hours (Table) 06/12/21 19:35 Gram Stain - Preliminary Sputum Sputum Culture - Preliminary 06/10/21 13:15 Blood Culture - Preliminary Blood No Growth after 48 hours 06/10/21 13:30 Blood Culture - Preliminary Blood No Growth after 48 hours Assessment and Plan Assessment: 1 Acute exacerbation of chronic obstructive pulmonary disease, no evidence of pneumonia. The chest x-ray findings and essentially chronic and the patient has chronic emphysematous changes in the upper lobe with some chronic scarring in the right apex. There is some questionable new infiltration of the left lung. Based on that the patient was started on IV cefepime.: COVID 19 testing was negative. The patient has been fully vaccinated. 2 Acute hypoxic respiratory failure secondary to above. Patient normally wears 3 L of oxygen at home on a regular basis. 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 4 Coronary artery disease, currently inactive and stable. Most recent cardiac catheterization revealed nonocclusive disease. 5 Hypertension. 6 Hyperlipidemia. 7 History of chronic tobacco dependence. 8 Breast cancer with his left mastectomy. 9 Osteoporosis. 10 Very poor baseline performance and functional status secondary to above- mentioned comorbidities Plan: Patient was seen and evaluated Stable and on 4 L nasal cannula currently She is requesting to go home, family is at the bedside Considering hospice In the interim, we'll continue with her current treatment plan I, the cosigning physician, performed a history & physical examination of the patient. Lungs sounds with bilateral end expiratory wheeze, diminished. Maintaining good O2 saturations in the 90s on 4 L/m per nasal cannula. I discussed the assessment and plan of care with my nurse practitioner, Rosi Julio. I attest to the above note as dictated by her. I have personally seen and examined the patient, performed the documentation and the assessment and plan as written. Number of minutes spent on the visit: 10. <Brenna Perez - Last Filed: 06/13/21 18:05> Objective - Vital Signs Vital signs: Vital Signs Temp 98.2 F 06/13/21 08:00 Pulse 76 06/13/21 16:00 Resp 17 06/13/21 16:00 BP 139/63 06/13/21 16:00 Pulse Ox 99 06/13/21 16:00 Intake & Output 06/12/21 06/13/21 06/13/21 18:59 06:59 18:59 Intake Total 720 840 Output Total 200 500 Balance 720 -200 340 Intake: Oral 720 840 Output: Urine 300 Stool 200 200 Other: Voiding Method Bedside Commode Bedside Commode Incontinent # Voids 1 1 - Labs CBC & Chem 7: 06/10/21 13:21 06/10/21 13:21 Labs: Abnormal Lab Results - Last 24 Hours (Table) 06/12/21 06/13/21 06/13/21 Range/Units 20:32 06:20 11:45 POC Glucose (mg/dL) 174 H 274 H 124 H (75-99) mg/dL 06/13/21 Range/Units 16:10 POC Glucose (mg/dL) 303 H (75-99) mg/dL Microbiology - Last 24 Hours (Table) 06/10/21 13:30 Blood Culture - Preliminary Blood No Growth after 72 hours 06/10/21 13:15 Blood Culture - Preliminary Blood No Growth after 72 hours 06/12/21 19:35 Gram Stain - Preliminary Sputum Sputum Culture - Preliminary Assessment and Plan Assessment: Joint evaluation that was done along with a nurse practitioner. This induration was on a more than 20 minutes. I was present at the evaluation. I tested information mentioned above. I had a lengthy discussion with the 2 daughters who are at the bedside. We discussed appropriate doses. We discussed the possibility of hospice. Hospice consultation was initiated. We'll continue to follow. No need for home noninvasive positive pressure ventilator at this point in time.
[2021-06-13 16:12] LABS: Glucose,Whole Blood 303 mg/dL (75-99)
--- NOTE | 2021-06-13 16:19 | P.PN ---
Subjective Progress Note Date: 06/13/21 HISTORY Of PRESENT ILLNESS This is a 80-year-old female patient of Dr. Alejandro with a previous medical history significant for coronary artery disease status post left heart catheterization with the left heart catheterization that was done in September 2014 that showed ostial lesion of the diagonal branch and mild disease of the RCA, normal ejection fraction, hypertension and hypertensive cardiovascular disease with left ventricular hypertrophy, chronic tobacco use and dependence with end- stage prednisone dependent COPD chronic obstructive pulmonary disease, chronic hypoxic respiratory failure on home O2, GERD, rectovaginal fistula repair, colon resection and colostomy placement done at [facility]. Chronic use of 3 L of nasal cannula oxygen on continue basis at home. She developed to have much worsening symptom of dyspnea and shortness of breath chronically worse over the past 2 weeks She was tested for COVID-19 along with influenza both were negati ve. previous vaccination covid In the emergency room, Patient chest x-ray showed COPD with pulmonary fibrosis increased groundglass like opacities left mid and lower pneumothorax or radiograph reflective of developing flexion Radiology report EKG, shows sinus rhythm, possible LAE, moderate T-wave abnormality, consider anterolateral ischemia I tried obtaining a previous echocardiogram, none of which were available in our chart last dobutamine stress test was in December 2019 without stress-induced ischemia, ER admission labs include pCO2, based on blood gas was 79, pH of 7.34, bicarb of 42 wbc count 8.3, hemoglobin 11.5, platelet count low at 138 glucose is 213, liver function test is normal, creatinine of 0.57 troponin is 0.013 coronary virus PCR negative. Patient admitted for COPD exacerbation, with impending severe respiratory failure, hypercapnia consult with pulmonary currently on BiPAP with O2 06/12: Patient's daughter Karen is at bedside. There've been discussions about hospice care and they would like to pursue this. Referral has been placed with plan for discharge possibly tomorrow. personnel specialist is daughter Ana. Patient has been afebrile, heart rate in the 70s and 80s, blood pressure 141/65, pulse ox 98% on BiPAP, currently on 4 L nasal cannula. Capillary blood glucose running between 102 123. Blood culture no growth after 24 hours 2 specimens. Patient underwent VQ scan which revealed intermediate probability for pulmonary embolism. Patient is followed by pulmonary medicine. Plan is for discharge home tomorrow with hospice care. Solu-Medrol will be decreased to 40 mg every 8 hours. 06/13: Patient states that she is not feeling well. She is stating that she cannot go home until the weekend because of situation with her daughters. Patient appears to be having more fatigue. She is continued on DuoNeb treatments Symbicort, antibiotics in the form of cefepime, Solu-Medrol 40 mg IV every 8 hours. [facility] is on standby waiting for decision from the family. Patient has verbalized that she wants to go home. We will follow-up tomorrow with the family regarding the plan. We did reach daughter Karen and there is still some family discussions going on. REVIEW OF SYSTEMS Constitutional: No fever, no chills, no night sweats. No weight change. No weakness, fatigue or lethargy. No daytime sleepiness. EENT: No headache. No blurred vision or double vision, no loss of vision. No loss of Hearing, no ringing in the ears, no dizziness. No nasal drainage or congestion. No epistaxis. No sore throat. Lungs: Reports shortness of breath which is chronic, improving, Reports cough, Reports sputum production. Reports wheezing. Cardiovascular: No chest pain, no lower extremity edema. Reports palpitations. No paroxysmal nocturnal dyspnea. No orthopnea. No lightheadedness or dizziness. No syncopal episodes. Abdominal: No abdominal pain. No nausea, vomiting. No diarrhea. No constipati on. No bloody or tarry stools. No loss of appetite. Genitourinary: No dysuria, increased frequency, urgency. No urinary retention. Musculoskeletal: No myalgias. No muscle weakness, no gait dysfunction, no frequent falls. No back pain. No neck pain. Integumentary: No wounds, no lesions. No rash or pruritus. No unusual bruising. No change in hair or nails. Neurologic: No aphasia. No facial droop. No change in mentation. No head injury. No headache. No paralysis. No paresthesia. Psychiatric: No depression. No anxiety. No mood swings. Endocrine: No abnormal blood sugars. No weight change. No excessive sweating or thirst. No cold intolerance. ASSESSMENT AND PLAN 1. Acute on chronic hypoxemic hypercarbic respiratory failure: Secondary to COPD exacerbation, and along with pulmonary fibrosis. Intermediate probability for pulmonary embolism on VQ scan. Patient is followed by [facility]. Continue Symbicort twice daily, DuoNeb treatments 4 times daily and as needed, Solu-Medrol 40 mg IV every 8 hours. 2. End-stage COPD exacerbation with tracheobronchitis early pneumonitis. start IV steroids along with updraft treatment [id number]. cefepime sputum cultures , 3. History of coronary artery disease. Stable at this time. Abnormal EKG, check echo troponins normal 4. Hyperlipidemia. Low-cholesterol diet. 5. Hypertension and hypertensive cardiovascular disease. Continue losartan 100 mg twice daily, continue hydrochlorothiazide 12.5 mg daily. 7. GERD. Continue current Protonix 40 mg orally once every day. 8. Osteoarthritis. Continue meloxicam 15 mg orally once every day. 9. History of tobacco use and dependence. Lovenox 30 mg subcu daily 10. Osteoporosis. Stable. 11. History of rectal vaginal fistula, repaired with colon resection and colostomy placement done at [facility], [facility]. 12. DVT prophylaxis. Lovenox 40 mg daily, pending d-dimer and VQ scan 13. GI prophylaxis. On Protonix 40 mg orally once every day. 14. COVID-19 testing negative. Patient has been hospitalized during a pandemic. CODE STATUS DO NOT RESUSCITATE DISCHARGE PLAN Home on Saturday with [facility] Impression and plan of care have been directed as dictated by the signing physician. Keren Daniels nurse practitioner acting as scribe for signing physician. Objective - Vital Signs Vital signs: Vital Signs Temp 98.2 F 06/13/21 08:00 Pulse 85 06/13/21 12:00 Resp 18 06/13/21 12:00 BP 158/79 06/13/21 12:00 Pulse Ox 100 06/13/21 12:00 Intake & Output 06/12/21 06/13/21 06/13/21 18:59 06:59 18:59 Intake Total 720 600 Output Total 200 500 Balance 720 -200 100 Intake: Oral 720 600 Output: Urine 300 Stool 200 200 Other: Voiding Method Bedside Commode Bedside Commode # Voids 1 1 - Labs CBC & Chem 7: 06/10/21 13:21 06/10/21 13:21 Labs: Abnormal Lab Results - Last 24 Hours (Table) 06/12/21 06/12/21 06/13/21 Range/Units 16:31 20:32 06:20 POC Glucose (mg/dL) 269 H 174 H 274 H (75-99) mg/dL 06/13/21 Range/Units 11:45 POC Glucose (mg/dL) 124 H (75-99) mg/dL Microbiology - Last 24 Hours (Table) 06/12/21 19:35 Gram Stain - Preliminary Sputum Sputum Culture - Preliminary 06/10/21 13:15 Blood Culture - Preliminary Blood No Growth after 48 hours 06/10/21 13:30 Blood Culture - Preliminary Blood No Growth after 48 hours
[2021-06-13] MEDS: FLUTICASONE 50MCG/SPRAY NASAL 16GM EA NOSTRIL SCH (17:31)
[2021-06-13 20:12] LABS: Glucose,Whole Blood 169 mg/dL (75-99)
[2021-06-13 20:30] VITALS: TEMP 97.8
[2021-06-14] MEDS: CEFEPIME 2 GM in SODIUM CHLORIDE 0.9% 100 ML IVPB SCH ×2 (00:03→10:21)
[2021-06-14 03:52] VITALS: RESP 20
[2021-06-14] MEDS: ALPRAZolam 1 MG TAB PO SCH (04:04)
[2021-06-14 06:11] LABS: Glucose,Whole Blood 148 mg/dL (75-99)
[2021-06-14] MEDS: INSULIN ASPART (NovoLOG) 100 UNIT/ML VIAL SQ SCH (06:21)
[2021-06-14] MEDS: SYMBICORT 160-4.5 MCG INHALER INHALATION SCH (07:41)
[2021-06-14] MEDS: IPRATROPIUM-ALBUTEROL 3 ML NEB INHALATION SCH ×3 (07:41→15:26)
[2021-06-14] MEDS ORDERED: predniSONE 20 MG TAB PO SCH (09:00)
[2021-06-14] MEDS: ENOXAPARIN 40 MG/0.4 ML SYRINGE SQ SCH (10:21)
[2021-06-14] MEDS: FLUTICASONE 50MCG/SPRAY NASAL 16GM EA NOSTRIL SCH (10:21)
[2021-06-14 11:25] VITALS: BP 186/76
[2021-06-14 11:30] LABS: Glucose,Whole Blood 179 mg/dL (75-99)
--- NOTE | 2021-06-14 11:53 | P.PN ---
<Rosi Julio - Last Filed: 06/14/21 11:49> Subjective Progress Note Date: 06/14/21 80-year-old female patient is well-known to us pH she presented emergency department yesterday with generalized weakness, fatigue, shortness of breath. The patient is known to have advanced oxygen-dependent COPD and she suctioned dependent that she typically wears around 3.5 L of oxygen by nasal cannula. Her oxygen requirements have been gradually going up at home and she was utilizing 5 L. She was becoming more lethargic and weak and more shortness of breath. Based on that, she presented herself to the emergency department. She was afebrile. She was hemodynamically stable. Her EKG showed no acute abnormalities. She was in significant respiratory distress and the time of arrival and breath sounds are quite diminished bilaterally and the patient was also bronchospastic and wheezy. The blood gases was done and the patient was found to have a pH of 7.34 with a pCO2 of 79 and this was done and intravenous sample. Her serum bicarb was at 41 with a sodium level of 139 and a potassium level of 4.0. Blood sugar was 213. Troponin was negative at 0.013.: COVID 19 testing was negative. LFTs were essentially within normal limits. The white cell count at 8.1 with hemoglobin of 11.5 and a platelet count of 138. Chest x- ray was reviewed and it showed no acute abnormalities. It showed some increased interstitial marking the lung bases and some limited infiltration of the left mid and lower lung [place] and possibly a small left-sided pleural effusion. No significant cardiomegaly. No consolidation or airspace disease. Because of increased shortness of breath, the patient was placed on a BiPAP. She was started on bronchodilators and steroids. She is currently on a BiPAP at a pressure of 10/5 with a FiO2 of 40%. Her generator tidal volume is around 390 mL. Leak is in order of 29 L per minute. Her minute ventilation is around 1.1 with a respiratory rate of 18.. The patient is calm and comfortable. She is arousable. She took her oral medications. She is moving all 4 extremities. She remains afebrile. She was started on IV cefepime as an empiric antibiotic coverage. She remains on IV Solu-Medrol. COVID-19 testing is negative the patient has been vaccinated for COVID-19 On 06/12/2021 patient seen in follow-up on selective care unit. She is currently sitting up in the recliner, she looks very weak, and she states she feels tired, but overall slightly improved, does not appear to be in any acute distress, and she is currently on BiPAP support and she is on 4 L of oxygen. Earlier patient was on BiPAP support at 10/5 and FiO2 of 45%, and her pulse ox was around 98%. She's had no fever or chills, vital signs have been stable, she remains in sinus mechanism, lung sounds are diminished, patient does have a weak cough, she remains on IV Solu-Medrol 60 mg every 6 hours, she is on breathing treatments, and empiric antibiotics. Blood cultures have shown no growth. Patient had blood gas drawn yesterday which showed pO2 of 80, pCO2 of 61, and pH of 7.43, this was done on FiO2 of 44%. This is consistent with chronic hypercapnic and chronic hypoxic respiratory failure related to history of advanced COPD. Procalcitonin level was negative, patient tested negative for COVID-19. The patient is seen today 06/13/2021 in follow-up on the selective care unit. She is awake and alert in no acute distress. Currently sitting up in bed. She is still quite dyspneic with minimal exertion. Minimal conversation. She did utilize BiPAP 10/5 and 45% FiO2 overnight. She is currently on 4 L high flow nasal cannula. Her daughters are at the bedside. They are discussing possible home with hospice. She remains on Symbicort, DuoNeb inhalations, IV Solu- Medrol. Antibiotics in the form of cefepime. Lovenox for DVT prophylaxis. VQ scan revealed intermediate probability of pulmonary embolism. Echocardiogram revealed normal left ventricular systolic function and preserved ejection fraction. The cultures revealed no growth. Sputum culture reveals no growth thus far. Blood glucose 124. The patient is seen today 06/14/2021 in follow-up on the selective care unit. She is currently resting fairly comfortably in bed. Awake and alert. Maintaining O2 saturations in the 90s on 4 L/m per nasal cannula. Standby BiPAP 10/5 and 45% FiO2. She remains on Symbicort and DuoNeb inhalations. Remains on prednisone taper. Antibiotics in the form of cefepime. Blood sugar 179. Love nox for DVT prophylaxis. Blood cultures reveal no growth. Sputum culture reveals no growth. Objective - Vital Signs Vital signs: Vital Signs Temp 97.8 F 06/14/21 08:00 Pulse 96 06/14/21 11:33 Resp 20 06/14/21 08:00 BP 186/76 06/14/21 08:00 Pulse Ox 95 06/14/21 08:00 Intake & Output 06/13/21 06/14/21 06/14/21 18:59 06:59 18:59 Intake Total 840 240 Output Total 500 200 Balance 340 40 Weight 56 kg Intake: Oral 840 240 Output: Urine 300 Stool 200 200 Other: Voiding Method Bedside Commode Bedside Commode Bedside Commode Incontinent Incontinent Incontinent # Voids 1 1 # Bowel Movements 1 - Exam GENERAL EXAM: Alert, pleasant, 80-year-old female patient, chronically ill looking, on 4 L of oxygen, comfortable in no apparent distress. HEAD: Normocephalic/atraumatic. EYES: Normal reaction of pupils, equal size. Conjunctiva pink, sclera white. NOSE: Clear with pink turbinates. THROAT: No erythema or exudates. NECK: No masses, no JVD, no thyroid enlargement, no adenopathy. CHEST: No chest wall deformity. Symmetrical expansion. LUNGS: Equal air entry with bilateral end expiratory wheeze, diminished. CVS: Regular rate and rhythm, normal S1 and S2, no gallops, no murmurs, no rubs ABDOMEN: Soft, nontender. No hepatosplenomegaly, normal bowel sounds, no guarding or rigidity. EXTREMITIES: No clubbing, no edema, no cyanosis, 2+ pulses and upper and lower extremities. MUSCULOSKELETAL: Muscle strength and tone normal. SPINE: No scoliosis or deformity SKIN: No rashes CENTRAL NERVOUS SYSTEM: No focal deficits, tone is normal in all 4 extremities. PSYCHIATRIC: Alert and oriented -3. Appropriate affect. Intact judgment and insight. - Labs CBC & Chem 7: 06/10/21 13:21 06/10/21 13:21 Labs: Abnormal Lab Results - Last 24 Hours (Table) 06/13/21 06/13/21 06/14/21 Range/Units 16:10 20:11 06:09 POC Glucose (mg/dL) 303 H 169 H 148 H (75-99) mg/dL 06/14/21 Range/Units 11:28 POC Glucose (mg/dL) 179 H (75-99) mg/dL Microbiology - Last 24 Hours (Table) 06/10/21 13:30 Blood Culture - Preliminary Blood No Growth after 72 hours 06/10/21 13:15 Blood Culture - Preliminary Blood No Growth after 72 hours 06/12/21 19:35 Gram Stain - Preliminary Sputum Sputum Culture - Preliminary Assessment and Plan Assessment: 1 Acute exacerbation of chronic obstructive pulmonary disease, no evidence of pneumonia. The chest x-ray findings and essentially chronic and the patient has chronic emphysematous changes in the upper lobe with some chronic scarring in the right apex. There is some questionable new infiltration of the left lung. Based on that the patient was started on IV cefepime. COVID 19 testing was neg ative. The patient has been fully vaccinated. 2 Acute hypoxic respiratory failure secondary to above. Patient normally wears 3 L of oxygen at home on a regular basis. 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 4 Coronary artery disease, currently inactive and stable. Most recent cardiac catheterization revealed nonocclusive disease. 5 Hypertension. 6 Hyperlipidemia. 7 History of chronic tobacco dependence. 8 Breast cancer with his left mastectomy. 9 Osteoporosis. 10 Very poor baseline performance and functional status secondary to above- mentioned comorbidities Plan: Patient was seen and evaluated Stable and on 4 L nasal cannula currently Plan is for possible discharge home tomorrow with hospice I have personally seen and examined the patient, performed the documentation and the assessment and plan as written. Number of minutes spent on the visit: 10. <Brenna Perez - Last Filed: 06/14/21 15:44> Objective - Vital Signs Vital signs: Vital Signs Temp 97.8 F 06/14/21 08:00 Pulse 85 06/14/21 15:29 Resp 20 06/14/21 14:00 BP 186/76 06/14/21 08:00 Pulse Ox 95 06/14/21 08:00 Intake & Output 06/13/21 06/14/21 06/14/21 18:59 06:59 18:59 Intake Total 840 240 Output Total 500 200 Balance 340 40 Weight 56 kg Intake: Oral 840 240 Output: Urine 300 Stool 200 200 Other: Voiding Method Bedside Commode Bedside Commode Bedside Commode Incontinent Incontinent Incontinent # Voids 1 1 # Bowel Movements 1 - Labs CBC & Chem 7: 06/10/21 13:21 06/10/21 13:21 Labs: Abnormal Lab Results - Last 24 Hours (Table) 06/13/21 06/13/21 06/14/21 Range/Units 16:10 20:11 06:09 POC Glucose (mg/dL) 303 H 169 H 148 H (75-99) mg/dL 06/14/21 Range/Units 11:28 POC Glucose (mg/dL) 179 H (75-99) mg/dL Microbiology - Last 24 Hours (Table) 06/12/21 19:35 Gram Stain - Preliminary Sputum Sputum Culture - Preliminary Sis albicans Yeast species 06/10/21 13:30 Blood Culture - Preliminary Blood No Growth after 72 hours 06/10/21 13:15 Blood Culture - Preliminary Blood No Growth after 72 hours Assessment and Plan Assessment: I have personally seen and examined the patient and reviewed the documentation. I performed a joint evaluation with the nurse practitioner in this evaluation was done more than 15minutes. I fully agree with the documentation above and the plan of care.
[2021-06-14 15:33] VITALS: PULSE 85
--- NOTE | 2021-06-14 15:35 | P.PN ---
Subjective Progress Note Date: 06/14/21 HISTORY Of PRESENT ILLNESS This is a 80-year-old female patient of Dr. Alejandro with a previous medical history significant for coronary artery disease status post left heart catheterization with the left heart catheterization that was done in September 2014 that showed ostial lesion of the diagonal branch and mild disease of the RCA, normal ejection fraction, hypertension and hypertensive cardiovascular disease with left ventricular hypertrophy, chronic tobacco use and dependence with end- stage prednisone dependent COPD chronic obstructive pulmonary disease, chronic hypoxic respiratory failure on home O2, GERD, rectovaginal fistula repair, colon resection and colostomy placement done at [facility]. Chronic use of 3 L of nasal cannula oxygen on continue basis at home. She developed to have much worsening symptom of dyspnea and shortness of breath chronically worse over the past 2 weeks She was tested for COVID-19 along with influenza both were negati ve. previous vaccination covid In the emergency room, Patient chest x-ray showed COPD with pulmonary fibrosis increased groundglass like opacities left mid and lower pneumothorax or radiograph reflective of developing flexion Radiology report EKG, shows sinus rhythm, possible LAE, moderate T-wave abnormality, consider anterolateral ischemia I tried obtaining a previous echocardiogram, none of which were available in our chart last dobutamine stress test was in December 2019 without stress-induced ischemia, ER admission labs include pCO2, based on blood gas was 79, pH of 7.34, bicarb of 42 wbc count 8.3, hemoglobin 11.5, platelet count low at 138 glucose is 213, liver function test is normal, creatinine of 0.57 troponin is 0.013 coronary virus PCR negative. Patient admitted for COPD exacerbation, with impending severe respiratory failure, hypercapnia consult with pulmonary currently on BiPAP with O2 06/12: Patient's daughter Karen is at bedside. There've been discussions about hospice care and they would like to pursue this. Referral has been placed with plan for discharge possibly tomorrow. meter maintenance person is daughter Ana. Patient has been afebrile, heart rate in the 70s and 80s, blood pressure 141/65, pulse ox 98% on BiPAP, currently on 4 L nasal cannula. Capillary blood glucose running between 102 123. Blood culture no growth after 24 hours 2 specimens. Patient underwent VQ scan which revealed intermediate probability for pulmonary embolism. Patient is followed by pulmonary medicine. Plan is for discharge home tomorrow with hospice care. Solu-Medrol will be decreased to 40 mg every 8 hours. 06/13: Patient states that she is not feeling well. She is stating that she cannot go home until the weekend because of situation with her daughters. Patient appears to be having more fatigue. She is continued on DuoNeb treatments Symbicort, antibiotics in the form of cefepime, Solu-Medrol 40 mg IV every 8 hours. [facility] is on standby waiting for decision from the family. Patient has verbalized that she wants to go home. We will follow-up tomorrow with the family regarding the plan. We did reach daughter Karen and there is still some family discussions going on. 06/14: Overnight, patient required BiPAP on and off through the night and this morning she is on BiPAP with worsening condition, increased weakness and fatigue. Asked patient and she states that she wants to go home. Contacted the patient's daughter and 1 showed up at the bedside, finally agreed to take the patient home versus waiting. Contacted [facility] and they will make arrangements for equipment to arrive earlier than scheduled and that a hospice nurse will see the patient today. Patient will be discharged once all arrangements are completed as is eminent and expected within the next 24 hours. DISCHARGE DIAGNOSES 1. Acute on chronic hypoxemic hypercarbic respiratory failure: Secondary to COPD exacerbation, and along with pulmonary fibrosis. 2. End-stage COPD exacerbation with tracheobronchitis early pneumonitis. 3. History of coronary artery disease. 4. Hyperlipidemia. 5. Hypertension and hypertensive cardiovascular disease. 7. GERD. 8. Osteoarthritis generalized. 9. History of tobacco use and dependence. 10. Osteoporosis. Stable. 11. History of rectal vaginal fistula, repaired with colon resection and colostomy placement done at [facility], [facility]. DISCHARGE PLAN Home urgently with [facility] Greater than 35 minutes was utilized and coordinating patient's discharge. Impression and plan of care have been directed as dictated by the signing physician. Keren Daniels nurse practitioner acting as scribe for signing physician. Objective - Vital Signs Vital signs: Vital Signs Temp 97.8 F 06/14/21 08:00 Pulse 96 06/14/21 11:33 Resp 20 06/14/21 08:00 BP 186/76 06/14/21 08:00 Pulse Ox 95 06/14/21 08:00 Intake & Output 06/13/21 06/14/21 06/14/21 18:59 06:59 18:59 Intake Total 840 240 Output Total 500 200 Balance 340 40 Weight 56 kg Intake: Oral 840 240 Output: Urine 300 Stool 200 200 Other: Voiding Method Bedside Commode Bedside Commode Bedside Commode Incontinent Incontinent Incontinent # Voids 1 1 # Bowel Movements 1 - Labs CBC & Chem 7: 06/10/21 13:21 06/10/21 13:21 Labs: Abnormal Lab Results - Last 24 Hours (Table) 06/13/21 06/13/21 06/14/21 Range/Units 16:10 20:11 06:09 POC Glucose (mg/dL) 303 H 169 H 148 H (75-99) mg/dL 06/14/21 Range/Units 11:28 POC Glucose (mg/dL) 179 H (75-99) mg/dL Microbiology - Last 24 Hours (Table) 06/10/21 13:30 Blood Culture - Preliminary Blood No Growth after 72 hours 06/10/21 13:15 Blood Culture - Preliminary Blood No Growth after 72 hours 06/12/21 19:35 Gram Stain - Preliminary Sputum Sputum Culture - Preliminary
--- NOTE | 2021-06-14 15:37 | P.DS ---
Providers Date of admission: 06/10/21 15:43 Expected date of discharge: 06/14/21 Attending physician: Alina Maldonado Consults: 06/10/21 15:43 Consult Physician Routine Consulting Provider: Kj Bain Consult Reason/Comments: copd Do you want consulting provider notified?: Yes [facility] HISTORY Of PRESENT ILLNESS This is a 80-year-old female patient of Dr. Alejandro with a previous medical history significant for coronary artery disease status post left heart catheterization with the left heart catheterization that was done in September 2014 that showed ostial lesion of the diagonal branch and mild disease of the RCA, normal ejection fraction, hypertension and hypertensive cardiovascular disease with left ventricular hypertrophy, chronic tobacco use and dependence with end- stage prednisone dependent COPD chronic obstructive pulmonary disease, chronic hypoxic respiratory failure on home O2, GERD, rectovaginal fistula repair, colon resection and colostomy placement done at [facility]. Chronic use of 3 L of nasal cannula oxygen on continue basis at home. She developed to have much worsening symptom of dyspnea and shortness of breath chronically worse over the past 2 weeks She was tested for COVID-19 along with influenza both were negative. previous vaccination covid In the emergency room, Patient chest x-ray showed COPD with pulmonary fibrosis increased groundglass like opacities left mid and lower pneumothorax or radiograph reflective of developing flexion Radiology report EKG, shows sinus rhythm, possible LAE, moderate T-wave abnormality, consider anterolateral ischemia I tried obtaining a previous echocardiogram, none of which were available in our chart last dobutamine stress test was in December 2019 without stress-induced ischemia, ER admission labs include pCO2, based on blood gas was 79, pH of 7.34, bicarb of 42 wbc count 8.3, hemoglobin 11.5, platelet count low at 138 glucose is 213, liver function test is normal, creatinine of 0.57 troponin is 0.013 coronary virus PCR negative. Patient admitted for COPD exacerbation, with impending severe respiratory failure, hypercapnia consult with pulmonary currently on BiPAP with O2 06/12: Patient's daughter Karen is at bedside. There've been discussions about hospice care and they would like to pursue this. Referral has been placed with plan for discharge possibly tomorrow. corsets salesperson is daughter Ana. Patient has been afebrile, heart rate in the 70s and 80s, blood pressure 141/65, pulse ox 98% on BiPAP, currently on 4 L nasal cannula. Capillary blood glucose running between 102 123. Blood culture no growth after 24 hours 2 specimens. Patient underwent VQ scan which revealed intermediate probability for pulmonary embolism. Patient is followed by pulmonary medicine. Plan is for discharge home tomorrow with hospice care. Solu-Medrol will be decreased to 40 mg every 8 hours. 3/1: Patient states that she is not feeling well. She is stating that she cannot go home until the weekend because of situation with her daughters. Patient appears to be having more fatigue. She is continued on DuoNeb treatments Symbicort, antibiotics in the form of cefepime, Solu-Medrol 40 mg IV every 8 hours. [facility] is on standby waiting for decision from the family. Patient has verbalized that she wants to go home. We will follow-up tomorrow with the family regarding the plan. We did reach daughter Karen and there is still some family discussions going on. 3: Overnight, patient required BiPAP on and off through the night and this morning she is on BiPAP with worsening condition, increased weakness and fatigue. Asked patient and she states that she wants to go home. Contacted the patient's daughter and 1 showed up at the bedside, finally agreed to take the patient home versus waiting. Contacted [facility] and they will make arrangements for equipment to arrive earlier than scheduled and that a hospice nurse will see the patient today. Patient will be discharged once all arrangements are completed as is eminent and expected within the next 24 hours. DISCHARGE DIAGNOSES 1. Acute on chronic hypoxemic hypercarbic respiratory failure: Secondary to COPD exacerbation, and along with pulmonary fibrosis. 2. End-stage COPD exacerbation with tracheobronchitis early pneumonitis. 3. History of coronary artery disease. 4. Hyperlipidemia. 5. Hypertension and hypertensive cardiovascular disease. 7. GERD. 8. Osteoarthritis generalized. 9. History of tobacco use and dependence. 10. Osteoporosis. Stable. 11. History of rectal vaginal fistula, repaired with colon resection and colostomy placement done at [facility]. DISCHARGE PLAN Home urgently with [facility] Greater than 35 minutes was utilized and coordinating patient's discharge. Impression and plan of care have been directed as dictated by the signing physician. Keren Daniels nurse practitioner acting as scribe for signing physician. Patient Condition at Discharge: Stable Plan - Discharge Summary Discharge Rx Participant: No New Discharge Prescriptions: Continue ALPRAZolam [Xanax] 1 mg PO TID PRN PRN Reason: Anxiety Omeprazole [PriLOSEC] 20 mg PO DAILY Dicyclomine [Bentyl] 10 mg PO BID Tiotropium [place] [Spiriva] 1 cap INHALATION RT-DAILY Albuterol Nebulized [Ventolin Nebulized] 2.5 mg INHALATION RT-QID Losartan Potassium 100 mg PO BID Fluticasone Nasal [place] [Flonase Nasal [place]] 2 spr EA NOSTRIL DAILY polyethylene glycoL 3350 [Miralax] 17 gm PO DAILY #30 packet predniSONE 10 mg PO DAILY Gabapentin [Neurontin] 100 mg PO TID cap Albuterol Sulfate [Proair Hfa] 2 puff INHALATION RT-QID PRN PRN Reason: Shortness Of Breath Ipratropium Nebulized [Atrovent Nebulized 0.2 MG/ML] 0.5 mg INHALATION RT-QID Budesonide/Formoterol Fumarate [Symbicort 160-4.5 Mcg Inhaler] 2 puff INHALATION RT-BID Diltiazem Cd [Cardizem CD] 120 mg PO DAILY #90 cap Acetaminophen-Codeine 300-30mg [Tylenol w/codeine #3] 1 tab PO BID PRN PRN Reason: Pain ALPRAZolam [Xanax] 0.5 mg PO TID@0500,1300,2100 Discontinued Celecoxib [CeleBREX] 200 mg PO DAILY Letrozole [Femara] 2.5 mg PO DAILY Furosemide [Lasix] 40 mg PO DAILY Potassium Chloride ER [K-Dur 20] 20 meq PO DAILY Discharge Medication List ALPRAZolam [Xanax] 1 mg PO TID PRN 06/16/15 [History] Omeprazole [PriLOSEC] 20 mg PO DAILY 03/06/16 [History] Dicyclomine [Bentyl] 10 mg PO BID 11/12/16 [History] Tiotropium [place] [Spiriva] 1 cap INHALATION RT-DAILY 11/12/16 [History] Albuterol Nebulized [Ventolin Nebulized] 2.5 mg INHALATION RT-QID 03/10/18 [History] Losartan Potassium 100 mg PO BID 01/22/19 [History] Albuterol Sulfate [Proair Hfa] 2 puff INHALATION RT-QID PRN 02/02/21 [History] Budesonide/Formoterol Fumarate [Symbicort 160-4.5 Mcg Inhaler] 2 puff INHALATION RT-BID 02/02/21 [History] Fluticasone Nasal [place] [Flonase Nasal [place]] 2 spr EA NOSTRIL DAILY 02/02/21 [History] Ipratropium Nebulized [Atrovent Nebulized 0.2 MG/ML] 0.5 mg INHALATION RT-QID 02/02/21 [History] Diltiazem Cd [Cardizem CD] 120 mg PO DAILY #90 cap 03/16/21 [Rx] polyethylene glycoL 3350 [Miralax] 17 gm PO DAILY #30 packet 03/16/21 [Rx] predniSONE 10 mg PO DAILY 04/22/21 [History] Gabapentin [Neurontin] 100 mg PO TID cap 04/25/21 [Rx] ALPRAZolam [Xanax] 0.5 mg PO TID@0500,1300,2100 06/10/21 [History] Acetaminophen-Codeine 300-30mg [Tylenol w/codeine #3] 1 tab PO BID PRN 06/10/21 [History] Follow up Appointment(s)/Referral(s): [facility], [NON-STAFF] - Alvin Alejandro DO [Primary Care Provider] - As Needed Discharge Disposition: HOME WITH HOSPICE
[2021-06-14] MEDS: DILTIAZEM CD 120 MG CAP.ER.24H PO SCH (16:28)
[2021-06-14] MEDS: FUROSEMIDE 20 MG TAB PO SCH (16:28)
[2021-06-14] MEDS: DICYCLOMINE 10 MG CAP PO SCH (16:28)
[2021-06-14] MEDS: LETROZOLE 2.5 MG TAB PO SCH (16:28)
[2021-06-14] MEDS: LOSARTAN 50 MG TAB PO SCH (16:28)
[2021-06-14] MEDS: GABAPENTIN 100 MG CAP PO SCH (16:28)
[2021-06-14] MEDS: PANTOPRAZOLE 40 MG TABLET PO SCH (16:29)
[2021-06-14] MEDS: POTASSIUM CHLORIDE ER 20 MEQ TAB.ER PO SCH (16:29)
[2021-06-14] MEDS: polyethylene glycoL 3350 17 GM POWD.PACK PO SCH (16:29)
[2021-06-14] MEDS: MELOXICAM 7.5 MG TAB PO SCH (16:29)
== END 2021-06-14 15:50 | disposition hospice, home (50) | DRG 190 ==
LOC: EC 12:53 → 3SCARD 15:43
PROVIDERS: ADMIT Family Medicine; ATTEND Family Medicine
PROC: 5A09357 Assistance with Respiratory Ventilation, Less than 24 Consecutive Hours, Continuous Positive Airway Pressure (ICD-10-PCS; principal; 2021-06-10)
DX: J44.1 Chronic obstructive pulmonary disease with (acute) exacerbation (principal); J96.22 Acute and chronic respiratory failure with hypercapnia; J96.21 Acute and chronic respiratory failure with hypoxia; J18.9 Pneumonia, unspecified organism; E87.2 Acidosis; J44.0 Chronic obstructive pulmonary disease with (acute) lower respiratory infection; J84.10 Pulmonary fibrosis, unspecified; I25.10 Atherosclerotic heart disease of native coronary artery without angina pectoris; I11.9 Hypertensive heart disease without heart failure; Z51.5 Encounter for palliative care; Z66 Do not resuscitate; Z20.822 Contact with and (suspected) exposure to COVID-19; Z85.3 Personal history of malignant neoplasm of breast; Z90.12 Acquired absence of left breast and nipple; E78.5 Hyperlipidemia, unspecified; F40.240 Claustrophobia; K21.9 Gastro-esophageal reflux disease without esophagitis; M15.9 Polyosteoarthritis, unspecified; M81.0 Age-related osteoporosis without current pathological fracture; Z79.1 Long term (current) use of non-steroidal anti-inflammatories (NSAID); Z79.51 Long term (current) use of inhaled steroids; Z99.81 Dependence on supplemental oxygen; Z79.52 Long term (current) use of systemic steroids; Z79.811 Long term (current) use of aromatase inhibitors; Z79.899 Other long term (current) drug therapy; Z82.3 Family history of stroke; Z82.49 Family history of ischemic heart disease and other diseases of the circulatory system; K58.9 Irritable bowel syndrome, unspecified; Z82.5 Family history of asthma and other chronic lower respiratory diseases; Z87.11 Personal history of peptic ulcer disease; Z87.440 Personal history of urinary (tract) infections; Z87.891 Personal history of nicotine dependence; Z90.49 Acquired absence of other specified parts of digestive tract; Z87.01 Personal history of pneumonia (recurrent); Z90.710 Acquired absence of both cervix and uterus; Z91.041 Radiographic dye allergy status; Z93.3 Colostomy status; Z98.42 Cataract extraction status, left eye; Z98.41 Cataract extraction status, right eye; Z96.1 Presence of intraocular lens; Z90.89 Acquired absence of other organs; Z98.890 Other specified postprocedural states
CPT/HCPCS: 36415; 36600; 71045; 78582; 80053; 82803; 82805; 83605; 83735; 84145; 84484; 85025; 85379; 85610; 85730; 87040; 87070; 87205; 87635; 93005; 93306; 94640; 94660; 94760; 96365; 96368; 96375; 99291